=== PATIENT | male | born 1960 | race Caucasian/White ===

== ENCOUNTER 2016-08-06 14:46 | Inpatient (IN) | payer OTHER ==
[2016-08-06] MEDS ORDERED: ASPIRIN 81 MG CHEW PO STA (15:16)
[2016-08-06] MEDS ORDERED: IPRATROPIUM-ALBUTEROL 3 ML NEB INHALATION STA (15:16)
[2016-08-06] MEDS ORDERED: NITROGLYCERIN OINT 1 INCH/GM PACKET TOPICAL STA (15:16)
--- NOTE | 2016-08-06 15:19 | ED ---
General Adult HPI - General Chief complaint: Chest Pain Stated complaint: MARYA Heart Hx Time Seen by Provider: 08/06/16 14:59 Source: patient, RN notes reviewed Mode of arrival: wheelchair Limitations: no limitations - History of Present Illness Initial comments: Patient is a pleasant 55-year-old male presenting to the emergency Department with complaints of difficulty in breathing. Symptoms have been present for the past few days. Patient has cough with occasional yellow sputum. Patient has been using nebulizers without much improvement. Patient has been expressing chest discomfort frequently over the past few months. Patient has seen his doctor for this. Patient was once in the emergency department and advised to stay for stress test however he did not want to do this at that time. No chest discomfort at this time. Discomfort is exertional. Patient feels his dyspnea and chest discomfort are not necessarily related. Leg pain or leg swelling. Patient has been going through quite a bit of nitroglycerin recently. - Related Data Home Medications Medication Instructions Recorded Confirmed Clopidogrel [Plavix] 75 mg PO DAILY 08/09/15 08/06/16 Albuterol Sulfate [Proventil Hfa] 1 - 2 puff INHALATION RT-Q6H PRN 08/06/1610/18 Atorvastatin [Lipitor] 40 mg PO DAILY 08/06/16 08/06/16 Budesonide/Formoterol Fumarate 2 puff INHALATION RT-BID 08/06/16 08/06/16 [Symbicort 160-4.5 Mcg Inhaler] Lisinopril [Prinivil] 5 mg PO DAILY 08/06/16 08/06/16 Metoprolol Tartrate [Lopressor] 25 mg PO DAILY 08/06/16 08/06/16 Spironolactone [Aldactone] 25 mg PO DAILY 08/06/16 08/06/16 Allergies Allergy/AdvReac Type Severity Reaction Status Date / Time No Known Allergies Allergy Verified 08/06/16 15:16 Review of Systems ROS Statement: Those systems with pertinent positive or pertinent negative responses have been documented in the HPI. ROS Other: All systems not noted in ROS Statement are negative. Constitutional: Denies: fever, chills Eyes: Denies: eye pain ENT: Denies: ear pain Respiratory: Reports: cough, dyspnea Cardiovascular: Reports: chest pain Endocrine: Reports: fatigue Gastrointestinal: Denies: abdominal pain Genitourinary: Denies: dysuria Musculoskeletal: Denies: back pain Skin: Denies: rash Neurological: Denies: weakness Past Medical History Past Medical History: Coronary Artery Disease (CAD), COPD, Hyperlipidemia, Hypertension, Myocardial Infarction ([place]) History of Any Multi-Drug Resistant Organisms: MRSA Date of last positivie culture/infection: 2006 MDRO Source:: LEG Past Surgical History: Heart Catheterization With Stent Past Psychological History: No Psychological Hx Reported Smoking Status: Current every day smoker Past Alcohol Use History: None Reported Past Drug Use History: None Reported General Exam Limitations: no limitations General appearance: alert, in no apparent distress Head exam: Present: atraumatic Eye exam: Present: normal appearance, PERRL ENT exam: Present: normal oropharynx Neck exam: Present: normal inspection Respiratory exam: Present: rhonchi Cardiovascular Exam: Present: regular rate, normal rhythm GI/Abdominal exam: Present: soft. Absent: tenderness Extremities exam: Present: normal inspection. Absent: pedal edema, calf tenderness Neurological exam: Present: alert Psychiatric exam: Present: normal affect, normal mood Skin exam: Absent: rash Course Vital Signs 08/06/16 08/06/16 08/06/16 14:49 15:30 15:35 Temperature 99.1 F Pulse Rate 54 L 88 83 Respiratory 20 18 Rate Blood Pressure 139/71 95/51 O2 Sat by Pulse 99 100 Oximetry 08/06/16 08/06/16 15:39 17:00 Temperature Pulse Rate 88 82 Respiratory 18 Rate Blood Pressure 109/51 O2 Sat by Pulse 98 Oximetry EKG Findings - EKG Comments: EKG Findings:: Normal sinus rhythm at 89. MD 152. QRS 116. QTC 410. QTc 498. Left axis. LVH with repolarization changes. Inferior Q waves. Lateral T wave inversion. Previous EKG dated 08/09/2015 reviewed. Medical Decision Making - Medical Decision Making Patient reevaluated and did improve with nebulizer. Case was discussed in detail with Dr. Marroquin, who will admit for Dr. Rai. Patient states he has been talking about having a stress test done with Dr. Rai. His doctor has been trying to talk him into it however he has not yet had it done. - Lab Data Result diagrams: 08/06/16 15:08 08/06/16 15:08 Lab Results 08/06/16 08/06/16 08/06/16 Range/Units 15:08 15:08 15:08 WBC 8.7 (3.8-10.6) k/uL RBC 4.96 (4.30-5.90) m/uL Hgb 15.4 (13.0-17.5) gm/dL Hct 47.3 (39.0-53.0) % MCV 95.5 (80.0-100.0) fL MCH 31.1 (25.0-35.0) pg MCHC 32.6 (31.0-37.0) g/dL RDW 13.4 (11.5-15.5) % Plt Count 300 (150-450) k/uL Neutrophils % 72 % Lymphocytes % 18 % Monocytes % 6 % Eosinophils % 2 % Basophils % 1 % Neutrophils # 6.2 (1.3-7.7) k/uL Lymphocytes # 1.6 (1.0-4.8) k/uL Monocytes # 0.5 (0-1.0) k/uL Eosinophils # 0.2 (0-0.7) k/uL Basophils # 0.1 (0-0.2) k/uL PT (9.0-12.0) sec INR (<1.1) APTT (22.0-30.0) sec D-Dimer (<0.60) mg/L FEU Sodium 140 (137-145) mmol/L Potassium 4.4 (3.5-5.1) mmol/L Chloride 103 (98-107) mmol/L Carbon Dioxide 25 (22-30) mmol/L Anion Gap 12 mmol/L BUN 24 H (9-20) mg/dL Creatinine 0.83 (0.66-1.25) mg/dL Est GFR (MDRD) Af Amer >60 (>60 ml/min/1.73 sqM) Est GFR (MDRD) Non-Af >60 (>60 ml/min/1.73 sqM) Glucose 164 H (74-99) mg/dL Calcium 9.6 (8.4-10.2) mg/dL Magnesium 1.8 (1.6-2.3) mg/dL Total Bilirubin 0.6 (0.2-1.3) mg/dL AST 22 (17-59) U/L ALT 19 L (21-72) U/L Alkaline Phosphatase 81 (38-126) U/L Total Creatine Kinase 149 (55-170) U/L CK-MB (CK-2) 1.6 (0.0-2.4) ng/mL CK-MB (CK-2) Rel Index 1.1 Troponin I 0.028 (0.000-0.034) ng/mL NT-Pro-B Natriuret Pep pg/mL Total Protein 7.4 (6.3-8.2) g/dL Albumin 4.3 (3.5-5.0) g/dL Lipase 41 (23-300) U/L Influenza Type A RNA (Not Detectd) Influenza Type B (PCR) (Not Detectd) 08/06/16 08/06/16 08/06/16 Range/Units 15:08 15:08 15:08 WBC (3.8-10.6) k/uL RBC (4.30-5.90) m/uL Hgb (13.0-17.5) gm/dL Hct (39.0-53.0) % MCV (80.0-100.0) fL MCH (25.0-35.0) pg MCHC (31.0-37.0) g/dL RDW (11.5-15.5) % Plt Count (150-450) k/uL Neutrophils % % Lymphocytes % % Monocytes % % Eosinophils % % Basophils % % Neutrophils # (1.3-7.7) k/uL Lymphocytes # (1.0-4.8) k/uL Monocytes # (0-1.0) k/uL Eosinophils # (0-0.7) k/uL Basophils # (0-0.2) k/uL PT 11.2 (9.0-12.0) sec INR 1.1 (<1.1) APTT 23.8 (22.0-30.0) sec D-Dimer 1.14 H (<0.60) mg/L FEU Sodium (137-145) mmol/L Potassium (3.5-5.1) mmol/L Chloride (98-107) mmol/L Carbon Dioxide (22-30) mmol/L Anion Gap mmol/L BUN (9-20) mg/dL Creatinine (0.66-1.25) mg/dL Est GFR (MDRD) Af Amer (>60 ml/min/1.73 sqM) Est GFR (MDRD) Non-Af (>60 ml/min/1.73 sqM) Glucose (74-99) mg/dL Calcium (8.4-10.2) mg/dL Magnesium (1.6-2.3) mg/dL Total Bilirubin (0.2-1.3) mg/dL AST (17-59) U/L ALT (21-72) U/L Alkaline Phosphatase (38-126) U/L Total Creatine Kinase (55-170) U/L CK-MB (CK-2) (0.0-2.4) ng/mL CK-MB (CK-2) Rel Index Troponin I (0.000-0.034) ng/mL NT-Pro-B Natriuret Pep 1470 pg/mL Total Protein (6.3-8.2) g/dL Albumin (3.5-5.0) g/dL Lipase (23-300) U/L Influenza Type A RNA (Not Detectd) Influenza Type B (PCR) (Not Detectd) 08/06/16 Range/Units 15:22 WBC (3.8-10.6) k/uL RBC (4.30-5.90) m/uL Hgb (13.0-17.5) gm/dL Hct (39.0-53.0) % MCV (80.0-100.0) fL MCH (25.0-35.0) pg MCHC (31.0-37.0) g/dL RDW (11.5-15.5) % Plt Count (150-450) k/uL Neutrophils % % Lymphocytes % % Monocytes % % Eosinophils % % Basophils % % Neutrophils # (1.3-7.7) k/uL Lymphocytes # (1.0-4.8) k/uL Monocytes # (0-1.0) k/uL Eosinophils # (0-0.7) k/uL Basophils # (0-0.2) k/uL PT (9.0-12.0) sec INR (<1.1) APTT (22.0-30.0) sec D-Dimer (<0.60) mg/L FEU Sodium (137-145) mmol/L Potassium (3.5-5.1) mmol/L Chloride (98-107) mmol/L Carbon Dioxide (22-30) mmol/L Anion Gap mmol/L BUN (9-20) mg/dL Creatinine (0.66-1.25) mg/dL Est GFR (MDRD) Af Amer (>60 ml/min/1.73 sqM) Est GFR (MDRD) Non-Af (>60 ml/min/1.73 sqM) Glucose (74-99) mg/dL Calcium (8.4-10.2) mg/dL Magnesium (1.6-2.3) mg/dL Total Bilirubin (0.2-1.3) mg/dL AST (17-59) U/L ALT (21-72) U/L Alkaline Phosphatase (38-126) U/L Total Creatine Kinase (55-170) U/L CK-MB (CK-2) (0.0-2.4) ng/mL CK-MB (CK-2) Rel Index Troponin I (0.000-0.034) ng/mL NT-Pro-B Natriuret Pep pg/mL Total Protein (6.3-8.2) g/dL Albumin (3.5-5.0) g/dL Lipase (23-300) U/L Influenza Type A RNA Not Detected (Not Detectd) Influenza Type B (PCR) Not Detected (Not Detectd) - Radiology Data Radiology results: report reviewed (Computed tomography scan of the chest shows no pulmonary embolism. Emphysema. Cardiac megaly.), image reviewed (Chest x- ray shows no acute process) Disposition Clinical Impression: Unstable angina pectoris, COPD (chronic obstructive pulmonary disease) Disposition: ADMITTED IP TO THIS [facility] Decision Time: 17:46
[2016-08-06 15:20] LABS: Basophils # (A) 0.1 k/uL (0-0.2); Basophils % (A) 1 %; CH 31.9; CHCM 33.6; Eosinophils # (A) 0.2 k/uL (0-0.7); Eosinophils % (A) 2 %; HCT 47.3 % (39.0-53.0); HDW 2.29; HGB 15.4 gm/dL (13.0-17.5); Luc # (Auto) 0.13; Luc % (Auto) 2; Lymphocytes # (A) 1.6 k/uL (1.0-4.8); Lymphocytes % (A) 18 %; MCH 31.1 pg (25.0-35.0); MCHC 32.6 g/dL (31.0-37.0); MCV 95.5 fL (80.0-100.0); Mean Platelet Volume 7.4; Monocytes # (A) 0.5 k/uL (0-1.0); Monocytes % (A) 6 %; Neutrophils # (A) 6.2 k/uL (1.3-7.7); Neutrophils % (A) 72 %; RBC 4.96 m/uL (4.30-5.90); RDW 13.4 % (11.5-15.5); WBC 8.7 k/uL (3.8-10.6); WBC (Perox) 8.64
[2016-08-06 15:28] LABS: INR 1.1 (<1.1); Partial Thromboplastin Time 23.8 sec (22.0-30.0); Prothrombin Time 11.2 sec (9.0-12.0)
[2016-08-06 15:30] LABS: ALT 19 U/L (21-72); AST 22 U/L (17-59); Alkaline Phosphatase 81 U/L (38-126); Anion Gap 12 mmol/L; Blood Urea Nitrogen 24 mg/dL (9-20); Calcium 9.6 mg/dL (8.4-10.2); Carbon Dioxide 25 mmol/L (22-30); Chloride 103 mmol/L (98-107); Glucose 164 mg/dL (74-99); Magnesium 1.8 mg/dL (1.6-2.3); Non-African American GFR(MDRD) >60 (>60 ml/min/1.73 sqM); Potassium 4.4 mmol/L (3.5-5.1); Sodium 140 mmol/L (137-145); Total Bilirubin 0.6 mg/dL (0.2-1.3); Total Protein 7.4 g/dL (6.3-8.2)
--- NOTE | 2016-08-06 15:51 | XR ---
EXAMINATION TYPE: XR chest 2V DATE OF EXAM: 08/06/2016 3:20 PM HISTORY: Chest Pain. REFERENCE: Previous study dated 08/09/2015. FINDINGS: There is chronic appearing elevation of the right hemidiaphragm. Heart size is upper limits of normal. There are senescent changes throughout the chest. I do not see evidence of pneumonia or edema. IMPRESSION: NO ACUTE INTRATHORACIC ABNORMALITY.
[2016-08-06 15:56] LABS: Creatine Kinase MB 1.6 ng/mL (0.0-2.4); Troponin I 0.028 ng/mL (0.000-0.034)
[2016-08-06] MEDS ORDERED: RX INFO: IV CONTRAST WAS GIVEN 1 EACH MISC MISCELLANE PRN (16:00)
--- NOTE | 2016-08-06 16:51 | CT ---
EXAMINATION TYPE: CT angio chest DATE OF EXAM: 08/06/2016 4:39 PM COMPARISON: NONE HISTORY: Mid chest pain today. CT DLP: 376.20 mGycm Automated exposure control for dose reduction was used. CONTRAST: CTA scan of the thorax is performed with IV Contrast, patient injected with 74 mL of Omnipaque 350, p ulmonary embolism protocol. . FINDINGS: There is bullous change as well as other emphysematous findings throughout the lungs bilate rally, worse on the right than the left. There is some dependent atelectasis at the lung bases. No de finite parenchymal nodule is seen. There is no significant axillary or mediastinal adenopathy. There is a 2 cm lymph node in the right h ilum. Heart size is upper limits of normal. There is no pleural or pericardial fluid. There is no evidence of pulmonary embolus. The aorta is normal in caliber without evidence of dissection. There is a small hiatal hernia present. Visualized portions of the upper abdomen are otherwise unrema rkable. No osseous lesion is seen. IMPRESSION: 1. This examination is negative for pulmonary embolus. 2. Moderately severe changes of emphysema with bullous change bilaterally. 3. Underlying cardiomegaly. 4. Small hiatal hernia.
[2016-08-06] MEDS ORDERED: HEPARIN SODIUM,PORCINE 5,000 UNIT/ML 1 ML VIAL IV ONE (17:47)
[2016-08-06] MEDS ORDERED: IPRATROPIUM-ALBUTEROL 3 ML NEB INHALATION PRN (17:47)
[2016-08-06] MEDS: HEPARIN SODIUM,PORCINE/D5W PMX 25,000 UNIT in DEXTROSE/WATER 1 500ML.BAG IV SCH (18:06)
--- NOTE | 2016-08-06 19:19 | HP ---
DATE OF ADMISSION: He is a 55-year-old male who presented to the ED at [facility] with chest pain. This has been associated with cough, shortness of breath and wheezing and some yellowish phlegm. He was unable to lay flat in his chair because of the phlegm he was bringing up which was yellowish in color. He had no fever or chills. He has a known history of coronary artery disease and went through several bottles of nitroglycerin sublingual. He also had been started on Symbicort recently and had been taking at least 4 puffs of Symbicort at a time. He previously had been on albuterol HFA. Past medical history is positive for asthma as a child and subsequently as an adult as well, I believe though he was not discretely treated up until about 3 years ago, history of coronary artery disease, history possibly of COPD, history of cardiac cath with stent placement x2. Last stent was about 3 years ago, history of MRSA in the past with a leg infection in 2006. Family history is positive for possibly asthma in his father. 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 He smokes about a pack of cigarettes per day. He does not drink alcohol excessively or abused any other drugs. His medications prior to admission were: 1. Metoprolol. 2. Lisinopril. 3. Symbicort. 4. Lipitor. 5. Proventil HFA. 6. Aldactone. 7. Plavix. 8. Sublingual nitroglycerin. On physical examination, his blood pressure is 105/65, respiratory rate of 18, pulse rate 82, temperature 97.9, O2 sat on 2 liters by nasal cannula is 95%. HEENT: Pupils are equal. Chest reveals decreased breath sounds, prolonged expiration with expiratory wheeze on forced expiration. Cardiovascular system reveals an S1, S2. No S3, no S4. Short systolic murmur is heard. Abdomen is soft. There is no pedal edema. CTA of the chest showed that it is negative for PE. There are moderately severe changes of bullous emphysema with cardiomegaly and a hiatal hernia. EKG shows LVH with QRS widening, possible inferior infarct. IMPRESSION: 1. Chest pain possibly secondary to coronary artery disease for which the patient has been started on heparin. Will continue on beta taylor and will be seen by Cardiology. 2. Chest pain may in fact be due to asthma, chronic obstructive pulmonary disease overlap syndrome with acute exacerbation. 3. Obesity. At this point in time from a medical standpoint, rule in or rule him out for IA based on serial CPKs and EKGs. Have him seen by Cardiology. Start him on IV and aerosolized steroids. Continue bronchodilators. Add montelukast to his regimen. Keep him on GI prophylaxis. He was counseled regarding his condition and this approach and has a fair understanding of this approach.
[2016-08-06] MEDS: BUDESONIDE 0.5 MG/2 ML NEBU INHALATION SCH (19:45)
[2016-08-06] MEDS: IPRATROPIUM-ALBUTEROL 3 ML NEB INHALATION SCH (19:45)
[2016-08-06] MEDS: NITROGLYCERIN OINT 1 INCH/GM PACKET TOPICAL SCH (21:23)
[2016-08-06] MEDS: MONTELUKAST 10 MG TAB PO SCH (21:40)
[2016-08-06] MEDS: methylPREDNISolone SOD SUCCI 125 MG/2 ML VIAL IV SCH (21:40)
[2016-08-06 22:05] LABS: Creatine Kinase MB 1.2 ng/mL (0.0-2.4)
[2016-08-06 22:23] LABS: Troponin I 0.048 ng/mL (0.000-0.034)
[2016-08-07] MEDS: methylPREDNISolone SOD SUCCI 125 MG/2 ML VIAL IV SCH ×5 (00:30→23:34)
[2016-08-07 03:45] LABS: Mean Platelet Volume 7.2
[2016-08-07 03:54] LABS: Cholesterol 218 mg/dL (<200); HDL Cholesterol 62 mg/dL (40-60); Triglycerides 57 mg/dL (<150)
[2016-08-07] MEDS: HEPARIN SODIUM,PORCINE 5,000 UNIT/ML 1 ML VIAL IV PRN ×2 (04:02→11:44)
[2016-08-07 04:16] LABS: Creatine Kinase MB 1.2 ng/mL (0.0-2.4); Troponin I 0.022 ng/mL (0.000-0.034)
[2016-08-07] MEDS: NITROGLYCERIN OINT 1 INCH/GM PACKET TOPICAL SCH ×4 (06:16→17:32)
[2016-08-07] MEDS: BUDESONIDE 0.5 MG/2 ML NEBU INHALATION SCH (07:05)
[2016-08-07] MEDS: IPRATROPIUM-ALBUTEROL 3 ML NEB INHALATION SCH ×4 (07:05→20:07)
--- NOTE | 2016-08-07 07:40 | P.PN ---
Subjective 55-year-old being seen on rounds this morning. Patient states he's still short of breath audibly wheezing and coughing up yellowish secretions. Additionally patient states "having chronic carpal tunnel pain bilateral hands and lower back normally take oxycodone been without it for the last several weeks" patient states he does have a pain contract with Dr. Bradshaw". Additionally patient states he's coughing is causing chest tightness and pressure. Patient does have a history of coronary artery disease he states he had stents placed several years ago but has not followed up with cardiology. Patient isn't every day smoker smokes a pack a day has done so for greater than 20 years. Objective - Vital Signs Vital signs: Vital Signs Temp 97.9 F 08/07/16 07:13 Pulse 88 08/07/16 07:26 Resp 16 08/07/16 07:13 BP 120/89 08/07/16 07:13 Pulse Ox 93 L 08/07/16 07:13 Intake & Output 08/06/16 08/07/16 08/07/16 18:59 06:59 18:59 Intake Total 199.8 Balance 199.8 Weight 88.451 kg Intake: Intake, IV Titration 199.8 Amount Heparin Sodium,Porcine/ 199.8 D5w Pmx 25,000 unit In Dextrose/Water 1 500ml. bag @ 11.3 UNITS/KG/HR 19 .98 mls/hr IV .Q24H [facility] Rx#:[id number] Other: # Voids 1 1 - Exam GENERAL APPEARANCE: 55-year-old male patient is alert, oriented, in no acute distress. Requesting something for pain states has chronic pain due to carpal tunnel bilateral hands and lower back VITAL SIGNS: Reviewed HEENT: Head is normocephalic and atraumatic. Pupils are equal and reactive. The nares are patent. Oropharynx is clear without lesions. NECK: Supple without lymphadenopathy. Traches midline. HEART: S1, S2. Regular rate and rhythm. Reports chest tightness no murmur noted LUNGS: Coarse rhonchi throughout with audible wheezing bilateral frequent harsh nonproductive cough ABDOMEN: Soft, nontender, nondistended with good bowel sounds. No peritoneal signs. No palpable organomegaly or masses. EXTREMITIES: Normal skin color and turgor. No cyanosis, rash, ulceration, clubbing or edema. Radial pedal pulses are 2/4 bilaterally. NEUROLOGICAL: No focal deficits. Strength and sensation are grossly intact. - Labs CBC & Chem 7: 08/07/16 03:05 08/06/16 15:08 Labs: Abnormal Lab Results - Last 24 Hours (Table) 08/06/16 08/07/16 Range/Units 20:59 03:05 Troponin I 0.048 H* (0.000-0.034) ng/mL Cholesterol 218 H (<200) mg/dL LDL Cholesterol, Calc 145 H (0-99) mg/dL HDL Cholesterol 62 H (40-60) mg/dL Assessment and Plan Plan: Impression Present on admission shortness of breath suspect due to an acute exacerbation of COPD Current every day smoker 1 pack a day greater than a 20 year history Chronic pain with narcotic dependency History of asthma Mildly elevated troponins present on admission History of coronary artery disease with prior coronary stenting 3 years ago CAT scan of the chest no evidence of pulmonary emboli positive for bullous emphysema Plan Resume home meds as appropriate Respiratory treatments as ordered Await cardiology input Keep nothing by mouth until seen by cardiology DVT and GI prophylaxis Continue with the Singulair as ordered Pain control contact pain management Further recommendations pending The above dictated assessment and findings were discussed with dr terry Zaldivar and the plan of care have been dictated as directed. Maribel Gooden nurse practitioner acting as a scribe for dr stewart
[2016-08-07] MEDS ORDERED: ATORVASTATIN 40 MG TAB PO SCH (09:00)
--- NOTE | 2016-08-07 09:15 | P.CON ---
Consult Note - . Consult date: 08/07/16 Assessment/Plan:: Patient seen and examined, previous notes reviewed along with past medical, surgical, social, family histories and allergies. Mr. Goodman is a 55-year-old male with a long history of back pain and bilateral carpal tunnel syndrome who has been following with Dr. Bradshaw for medical management of his pain. He regularly gets oxycodone 15 mg po q6h (#120 per month) but ran out of his medication recently because there was a problem with his urine drug screen and Dr. Bradshaw would not prescribe him further medications and he did experience some opioid withdrawal symptoms. He believes that he was discharged from Dr. Bradshaw's clinic in error as the positive that came up in his urine drug screen can be explained by the other medications that he takes. He is happy with the care that Dr. Bradshaw has given him up until recently and does not wish to have another pain physician. The patient has been on a stable and fairly safe dose of oxycodone that can be continued in the hospital and prescribed by any primary care physician or hospitalist. At this point, it would be inappropriate for another pain physician to write him any prescriptions for opioid medications, as this will inevitably cloud the picture on his MAPS when he returns to see Dr. Bradshaw and he may be accused of seeking multiple pain providers when he is in fact not doing so. My recommendation is that our hospitalist service give the patient 1-2 weeks' worth of his medication upon discharge so he can return to see Dr. Bradshaw and have a further discussion regarding his opioid medications with that physician. I did educate the patient regarding his drug screen results and informed him that, if he needed further care, he can ask his primary care physician to refer him to our pain clinic on an outpatient basis. I discussed this case with the chief of the anesthesiology service, Dr. Irving Kohler. Please call back with any further questions.
[2016-08-07 09:30] LABS: Mis test requested (Blood) PTT
[2016-08-07 09:31] LABS: Mis test result (Blood) 43.3
--- NOTE | 2016-08-07 10:39 | P.CONS ---
History of Present Illness - Chief Complaint Hand and back pain - History of Present Illness I See patient for inpatient physical medicine consultation with regard to chronic pain management. He is apparently known to me from outpatient management for hand and back pain related to carpal tunnel syndrome and degenerative disc disease, respectively. Previously been on a regimen of oxycodone 15 mg 4 times a day, per patient. Recent you DT apparently demonstrated amphetamine in system and patient did not explain his. He apparently has discussed case with his pharmacist Shayla medication management amphetamine. Patient is advised to have printout from pharmacist with offending medication highlighted and brought to my office. Note chest x-ray negative. Chest CTA negative. Review of Systems Review of systems: ENT: Denies sneezes or discharge. Eyes: Denies discharge or photophobia. Cardiac: Complaints of chest pain. Pulmonary: Denies cough or shortness of breath. Gastrointestinal: Denies nausea, emesis, constipation, diarrhea. Genitourinary: Denies discharge or frequency. Musculoskeletal: Complaints of hands and back pain. Neurologic: Denies motor or sensory change. Endocrine: Denies shakes or sweats. Oncology: Denies cancers. Dermatologic: Denies rash, itching, pruritus. ALLERGY/immunology: Denies sneezes, rashes. Past Medical History Past Medical History: Coronary Artery Disease (CAD), COPD, Hyperlipidemia, Hypertension, Myocardial Infarction ([place]) Last Myocardial Infarction Date:: 2012 History of Any Multi-Drug Resistant Organisms: MRSA Year Discovered:: 2006 MDRO Source:: LEG Past Surgical History: Heart Catheterization With Stent Past Anesthesia/Blood Transfusion Reactions: No Reported Reaction Date of Last Stent Placement:: 2012 Past Psychological History: No Psychological Hx Reported Smoking Status: Current every day smoker Past Alcohol Use History: None Reported Past Drug Use History: None Reported Medications and Allergies Home Medications Medication Instructions Recorded Confirmed Type Clopidogrel [Plavix] 75 mg PO DAILY 08/09/15 08/06/16 History Albuterol Sulfate [Proventil Hfa] 1 - 2 puff INHALATION RT-Q6H PRN 08/06/1610/18 History Atorvastatin [Lipitor] 40 mg PO DAILY 08/06/16 08/06/16 History Budesonide/Formoterol Fumarate 2 puff INHALATION RT-BID 08/06/16 08/06/16 History [Symbicort 160-4.5 Mcg Inhaler] Lisinopril [Prinivil] 5 mg PO DAILY 08/06/16 08/06/16 History Metoprolol Tartrate [Lopressor] 25 mg PO DAILY 08/06/16 08/06/16 History Spironolactone [Aldactone] 25 mg PO DAILY 08/06/16 08/06/16 History oxyCODONE HCL [oxyCODONE HCL] 15 mg PO Q4H 08/07/16 08/07/16 History Allergies Allergy/AdvReac Type Severity Reaction Status Date / Time No Known Allergies Allergy Verified 08/06/16 15:16 Physical Exam Vitals: Vital Signs Temp Pulse Pulse Resp BP BP Pulse Ox 08/07/16 08:00 83 16 08/07/16 07:26 88 08/07/16 07:13 97.9 F 83 16 120/89 93 L 08/07/16 07:05 90 94 L 08/07/16 04:00 98.5 F 73 16 106/56 92 L 08/07/16 00:00 16 08/06/16 23:40 97.9 F 85 16 102/57 92 L 08/06/16 20:00 8 L 16 08/06/16 19:58 79 08/06/16 19:48 98.0 F 81 16 128/65 93 L 08/06/16 19:45 78 08/06/16 18:09 97.9 F 82 18 105/65 95 Intake and Output 08/06/16 08/07/16 08/07/16 22:59 06:59 14:59 Intake Total 199.8 Balance 199.8 Intake: Intake, IV Titration 199.8 Amount Heparin Sodium,Porcine/ 199.8 D5w Pmx 25,000 unit In Dextrose/Water 1 500ml. bag @ 11.3 UNITS/KG/HR 19 .98 mls/hr IV .Q24H [facility] Rx#:[id number] Other: Voiding Method Toilet # Voids 1 1 Weight 88.451 kg Skin: Good color, texture, turgor. General: Medium build and comfortable appearance. Head: Normocephalic, atraumatic. Eyes: Symmetric. Pupils equal round. Ears: Symmetric. Hearing within normal limits. Mouth: Clear. Neck: Supple. Carotid without bruit. Cardiac: Regular rate and rhythm. Lungs: Clear anteriorly and posteriorly. Abdomen: Soft active nontender. Extremities: Normal tone. Neurological: Mental status: Alert, cooperative, pleasant. Cranial nerves: Symmetric facial tone and trapezius. Motor: Normal strength and isolation all 4 limbs. Sensation: Intact throughout. DTRs: Symmetric and equal throughout. Mobility: Patient reports bathroom privileges in room and no difficulties with mobility. Results CBC & Chem 7: 08/07/16 03:05 08/06/16 15:08 Labs: Abnormal Lab Results - Last 24 Hours (Table) 08/06/16 08/07/16 Range/Units 20:59 03:05 Troponin I 0.048 H* (0.000-0.034) ng/mL Cholesterol 218 H (<200) mg/dL LDL Cholesterol, Calc 145 H (0-99) mg/dL HDL Cholesterol 62 H (40-60) mg/dL Chest x-ray: report reviewed (Chest x-ray negative.) CT scan - chest: report reviewed (CTA negative.) Assessment and Plan (1) Lumbar back pain Status: Acute Plan: Impression: 1. Low back pain, chronic. 2. Bilateral carpal tunnel some, per history. 3. Unstable angina with history of [place]. Comments and plan: At this time I prescribed oxycodone 15 mg 4 times a day. Patient is advised to straighten out pumps in office, must bring and pharmacist printout with circled or highlighted offending medication, in order to explain recent urine drug test result of a positive amphetamine. If he can do this, we' ll be happy to reassess him chronic pain management.
--- NOTE | 2016-08-07 11:07 | P.CRDCN ---
History of Present Illness Consult date: 08/07/16 Requesting physician: Arnoldo Rai Consult reason: chest pain Chief complaint: Chest pain History of present illness: This is a 55-year-old gentleman with known history of coronary artery disease, patient underwent angioplasty with stent placement of the right coronary artery and left circumflex artery in 2013, history of hypertension, hyperlipidemia, nicotine dependence, COPD. He's presented to the hospital on this occasion with symptoms of shortness of breath so stated cough of productive sputum, green in color. Patient states that he's been experiencing chest pressure and heaviness with associated exertional shortness of breath for the past few months, worsening recently. Patient has been taking several nitroglycerin a day, he states that they relief of symptoms but shortly thereafter symptoms return. This has been going on for a month or more. was treated with outpatient steroids and antibiotics for upper respiratory infection. Initial EKG on admission shows a normal sinus rhythm with nonspecific ST-T wave changes. Repeat EKG performed this morning shows normal sinus rhythm with lateral ST-T wave changes. Patient was also noted to have a run of nonsustained ventricular tachycardia on the monitor. Chest x-ray does not reveal any acute abnormality. CT of the chest negative for pulmonary embolism. Moderately severe changes of emphysema noted. Blood pressure on arrival 138/70 with a heart rate in the 50s to 60s. 99% on room air. Laboratory data reviewed, CBC normal, d-dimer 1.14. Potassium 4.4, BUN 24, creatinine 0.83. Troponins 0.028, 0.048, 0.022. Cholesterol 218, triglycerides 57, LDL 145, HDL 62. Influenza A and B-. Chordae to the patient , he has been taking Lopressor 25 mg daily, Prinivil 5 mg daily, Lipitor 40 mg daily, Aldactone 25 mg daily, Plavix 75 mg daily, and Symbicort inhaler at home. He does state he started taking an aspirin a day however this is not listed on his home medications. At the time of my examination this morning, he is currently chest pain free, continues to have cough. Past Medical History Past Medical History: Coronary Artery Disease (CAD), COPD, Hyperlipidemia, Hypertension, Myocardial Infarction ([place]) Last Myocardial Infarction Date:: 2012 History of Any Multi-Drug Resistant Organisms: MRSA Date of last positivie culture/infection: 2006 MDRO Source:: LEG Past Surgical History: Heart Catheterization With Stent Past Anesthesia/Blood Transfusion Reactions: No Reported Reaction Date of Last Stent Placement:: 2012 Past Psychological History: No Psychological Hx Reported Smoking Status: Current every day smoker Past Alcohol Use History: None Reported Past Drug Use History: None Reported Medications and Allergies Home Medications Medication Instructions Recorded Confirmed Type Clopidogrel [Plavix] 75 mg PO DAILY 08/09/15 08/06/16 History Albuterol Sulfate [Proventil Hfa] 1 - 2 puff INHALATION RT-Q6H PRN 08/06/1610/18 History Atorvastatin [Lipitor] 40 mg PO DAILY 08/06/16 08/06/16 History Budesonide/Formoterol Fumarate 2 puff INHALATION RT-BID 08/06/16 08/06/16 History [Symbicort 160-4.5 Mcg Inhaler] Lisinopril [Prinivil] 5 mg PO DAILY 08/06/16 08/06/16 History Metoprolol Tartrate [Lopressor] 25 mg PO DAILY 08/06/16 08/06/16 History Spironolactone [Aldactone] 25 mg PO DAILY 08/06/16 08/06/16 History oxyCODONE HCL [oxyCODONE HCL] 15 mg PO Q4H 08/07/16 08/07/16 History Allergies Allergy/AdvReac Type Severity Reaction Status Date / Time No Known Allergies Allergy Verified 08/06/16 15:16 Physical Exam Vitals: Vital Signs Temp Pulse Pulse Resp BP BP Pulse Ox 08/07/16 08:00 83 16 08/07/16 07:26 88 08/07/16 07:13 97.9 F 83 16 120/89 93 L 08/07/16 07:05 90 94 L 08/07/16 04:00 98.5 F 73 16 106/56 92 L 08/07/16 00:00 16 08/06/16 23:40 97.9 F 85 16 102/57 92 L 08/06/16 20:00 8 L 16 08/06/16 19:58 79 08/06/16 19:48 98.0 F 81 16 128/65 93 L 08/06/16 19:45 78 08/06/16 18:09 97.9 F 82 18 105/65 95 Intake and Output 08/06/16 08/07/16 08/07/16 22:59 06:59 14:59 Intake Total 199.8 Balance 199.8 Intake: Intake, IV Titration 199.8 Amount Heparin Sodium,Porcine/ 199.8 D5w Pmx 25,000 unit In Dextrose/Water 1 500ml. bag @ 11.3 UNITS/KG/HR 19 .98 mls/hr IV .Q24H JULIANE Rx#:[id number] Other: Voiding Method Toilet # Voids 1 1 2 Weight 88.451 kg PHYSICAL EXAMINATION: HEENT: Head is atraumatic, normocephalic. Pupils equal, round. Neck is supple. There is no elevated jugular venous pressure. HEART EXAMINATION: Heart S1 and S2 systolic murmur is heard. CHEST EXAMINATION: Lungs reveal scattered expiratory wheezes with decreased air exchange throughout. ABDOMEN: Soft, nontender. Bowel sounds are heard. No organomegaly noted. EXTREMITIES: 2+ peripheral pulses with no evidence of peripheral edema and no calf tenderness noted. NEUROLOGIC patient is awake, alert and oriented -3. . Results 08/07/16 03:05 08/06/16 15:08 Cardiac Enzymes 08/06/16 08/07/16 Range/Units 20:59 03:05 CK-MB (CK-2) 1.2 1.2 (0.0-2.4) ng/mL Troponin I 0.048 H* 0.022 (0.000-0.034) ng/mL Coagulation 08/06/16 08/07/16 Range/Units 23:54 06:57 APTT 28.6 (22.0-30.0) sec Lipids 08/07/16 Range/Units 03:05 Triglycerides 57 (<150) mg/dL Cholesterol 218 H (<200) mg/dL HDL Cholesterol 62 H (40-60) mg/dL CBC 08/07/16 Range/Units 03:05 Plt Count 290 (150-450) k/uL Current Medications Generic Name Dose Route Start Last Admin Trade Name Freq PRN Reason Stop Dose Admin Albuterol/Ipratropium 3 ml 08/06/16 20:00 08/07/16 07:05 Duoneb 0.5 Mg-3 Mg/3 Ml Soln INHALATION 3 ml RT-QID JULIANE Administration Albuterol/Ipratropium 3 ml 08/06/16 17:47 Duoneb 0.5 Mg-3 Mg/3 Ml Soln INHALATION RT-Q4H PRN Shortness Of Breath Or Wheezing Aspirin 325 mg 08/07/16 09:00 Aspirin PO DAILY [facility] Atorvastatin Calcium 40 mg 08/07/16 09:00 Lipitor PO DAILY [facility] Budesonide/Formoterol Fumarate 2 puff 08/07/16 08:00 Symbicort 160-4.5 Mcg Inhaler INHALATION RT-BID [facility] Clopidogrel Bisulfate 75 mg 08/07/16 09:00 Plavix PO DAILY [facility] Famotidine 20 mg 08/07/16 09:00 Pepcid PO BID [facility] Heparin Sodium (Porcine) 0 unit 08/06/16 17:47 08/07/16 04:02 Heparin IV 4,000 unit Q6HR PRN Administration Low PTT Protocol Heparin Sodium/Dextrose 25,000 500 mls @ 19.98 mls/hr 08/06/16 18:00 04:06 unit/ IV Solution IV 14.35 units/kg/hr .Q24H JULIANE 25.4 mls/hr Protocol Titration 11.3 UNITS/KG/HR Lisinopril 5 mg 08/07/16 09:00 Zestril PO DAILY [facility] Methylprednisolone Sodium Succinate 60 mg 08/06/16 18:45 08/07/16 06:17 Solu-Medrol IV 60 mg Q6HR [facility] Administration Metoprolol Tartrate 25 mg 08/07/16 09:00 Lopressor PO DAILY [facility] Miscellaneous Information 1 each 08/06/16 16:00 08/06/16 17:00 Rx Info: Iv Contrast Was Given MISCELLANE 08/08/16 16:00 1 each DAILY PRN Administration Per Protocol Montelukast Sodium 10 mg 08/06/16 21:00 08/06/16 21:40 Singulair PO 10 mg HS [facility] Administration Nitroglycerin 1 inch 08/06/16 18:00 08/07/16 06:16 Nitro-Bid Oint TOPICAL Not Given Q6HR [facility] Nitroglycerin 0.4 mg 08/06/16 17:47 Nitrostat SUBLINGUAL Q5M PRN Chest Pain Oxycodone HCl 15 mg 08/07/16 12:00 Oxyir PO Q6H [facility] Sodium Chloride 10 ml 08/06/16 21:00 08/07/16 04:44 Saline Flush IV Not Given BID [facility] Spironolactone 25 mg 08/07/16 09:00 Aldactone PO DAILY JUL[facility] Intake and Output 08/06/16 08/07/16 08/07/16 22:59 06:59 14:59 Intake Total 199.8 Balance 199.8 Intake: Intake, IV Titration 199.8 Amount Heparin Sodium,Porcine/ 199.8 D5w Pmx 25,000 unit In Dextrose/Water 1 500ml. bag @ 11.3 UNITS/KG/HR 19 .98 mls/hr IV .Q24H JULIANE Rx#:[id number] Other: Voiding Method Toilet # Voids 1 1 2 Weight 88.451 kg 08/07/16 03:05 EKG Interpretations (text) She'll EKG shows normal sinus rhythm with nonspecific ST-T wave changes, repeat EKG in the morning shows normal sinus rhythm with significant anterior lateral ST-T wave changes. Assessment and Plan Plan: Assessment and plan #1 symptoms of one to two-month duration of chest pressure and heaviness with associated exertional shortness of breath, abnormal troponins, EKG changes, suggestive of acute coronary syndrome. #2 symptoms of productive cough of green sputum, possible acute tracheobronchitis and exacerbation of COPD, low-grade temp 99.1. Currently on IV steroids. #3 known history of coronary artery disease with prior stenting of the circumflex and RCA in 2013. #4 nicotine dependence #5 hypertension #6 hyperlipidemia #7 COPD Plan We will obtain an echocardiogram with Doppler study. Continue aspirin, increase Lipitor to 80 mg daily, continue IV heparin. Continue lisinopril, metoprolol tartrate, and Aldactone. We will transfer the patient to the selective care unit. Check BNP level. Patient may need to undergo cardiac catheterization for more definitive diagnosis and further recommendations to follow. DNP note has been reviewed, I agree with a documented findings and plan of care. Patient was seen and examined.
[2016-08-07] MEDS: SYMBICORT 160-4.5 MCG INHALER INHALATION SCH ×2 (11:15→20:07)
[2016-08-07] MEDS: ASPIRIN 325 MG TAB PO SCH (11:41)
[2016-08-07] MEDS: FAMOTIDINE 20 MG TAB PO SCH ×2 (11:42→23:36)
[2016-08-07] MEDS: LISINOPRIL 5 MG TAB PO SCH (11:42)
[2016-08-07] MEDS: SPIRONOLACTONE 25 MG TAB PO SCH (11:42)
[2016-08-07] MEDS: METOPROLOL TARTRATE 25 MG TAB PO SCH (11:42)
[2016-08-07] MEDS: CLOPIDOGREL 75 MG TAB PO SCH (11:42)
[2016-08-07] MEDS ORDERED: ASPIRIN 325 MG TAB PO STA (12:47)
[2016-08-07] MEDS ORDERED: NITROGLYCERIN SL TABS 0.4 MG TAB SUBLINGUAL PRN (12:47)
[2016-08-07] MEDS ORDERED: SODIUM CHLORIDE 0.9% 1,000 ML in EMPTY BAG 1 BAG IV ONE (12:47)
[2016-08-07] MEDS ORDERED: ATORVASTATIN 80 MG TAB PO STA (12:47)
--- NOTE | 2016-08-07 18:02 | HP ---
DATE OF ADMISSION: 08/07/2016 CHIEF COMPLAINT: Chest pain. HISTORY OF PRESENT ILLNESS: This is another admission for this 55-year-old white male who has chronic angina pectoris. He was just in the office the other day. He is taking nitroglycerin 2 or 3 at a time 6 or 7 times a day. He noticed that he started to develop a cough with chest pain. He came to the emergency room. His cardiac enzymes were, apparently, somewhat elevated. REVIEW OF SYSTEMS: He has had no syncope, diaphoresis, palpitations, etc. Past medical history, family history, and personal and social histories are otherwise unremarkable and noncontributory. ALLERGIES: HE IS NOT ALLERGIC TO ANY MEDICATIONS. He takes: 1. Metoprolol 25 mg once a day. 2. Symbicort 160/4.5 two puffs twice a day. 3. Many Nitrostat per day. 4. Clopidogrel 75 per day. 5. Spironolactone 25 mg once a day. 6. Oxycodone 15 mg q.6 p.r.n. 7. Chantix 0.5 b.i.d. 8. Flonase once a day. 9. Lipitor 40 mg once a day. The remainder of his history is unremarkable except that he still smokes. PHYSICAL EXAMINATION: Blood pressure 144/86, pulse 83, respiratory rate 20. He is afebrile. In general he appeared to be in no acute distress. Skin color is normal. Skin is warm and dry. Lymph nodes are not enlarged. Head, ears, eyes, nose, mouth and throat were normal. Neck veins were not distended. Thyroid is not enlarged. Chest is clear. Breath sounds are diminished. Cardiac exam is normal sinus rhythm with no murmurs or extra sounds. Abdomen is soft, nontender without visceromegaly or masses. Extremities are normal. Neurologically he is intact. IMPRESSION: 1. Unstable angina pectoris. 2. Chronic obstructive pulmonary disease. PLAN: 1. Bed rest. 2. IV fluids. 3. Serial EKGs and enzymes. 4. Consult Cardiology.
--- NOTE | 2016-08-07 18:04 | PN ---
DATE OF SERVICE: 08/07/2016 CHIEF COMPLAINT: Coronary artery disease and unstable angina. HISTORY OF PRESENT ILLNESS: This gentleman is doing fairly well and he is still having some pain. He has been seen by Cardiology. PHYSICAL EXAMINATION: CHEST: Clear. CARDIAC: Normal. ABDOMEN: Soft, nontender. IMPRESSION: 1. Chest pain. 2. Probable unstable angina pectoris. 3. Coronary artery disease. 4. Chronic obstructive pulmonary disease. PLAN: Await recommendations from Cardiology.
[2016-08-07] MEDS: NITROGLYCERIN SL TABS 0.4 MG TAB SUBLINGUAL PRN (18:34)
[2016-08-07] MEDS: HEPARIN SODIUM,PORCINE/D5W PMX 25,000 UNIT in DEXTROSE/WATER 1 500ML.BAG IV SCH (18:56)
[2016-08-07 20:59] LABS: Glucose,Whole Blood 157 mg/dL (75-99)
[2016-08-07] MEDS: ALPRAZolam 0.5 MG TAB PO PRN (21:50)
[2016-08-07] MEDS: MONTELUKAST 10 MG TAB PO SCH (23:36)
[2016-08-08] MEDS: NITROGLYCERIN SL TABS 0.4 MG TAB SUBLINGUAL PRN (05:00)
[2016-08-08 05:45] LABS: Mean Platelet Volume 6.7
[2016-08-08 05:55] LABS: Glucose,Whole Blood 136 mg/dL (75-99)
[2016-08-08] MEDS: NITROGLYCERIN OINT 1 INCH/GM PACKET TOPICAL SCH ×4 (06:29→21:39)
[2016-08-08] MEDS: methylPREDNISolone SOD SUCCI 125 MG/2 ML VIAL IV SCH ×2 (06:30→11:52)
[2016-08-08] MEDS ORDERED: ATORVASTATIN 80 MG TAB PO ONE (07:00)
[2016-08-08] MEDS: IPRATROPIUM-ALBUTEROL 3 ML NEB INHALATION SCH ×4 (07:39→20:25)
[2016-08-08] MEDS: SYMBICORT 160-4.5 MCG INHALER INHALATION SCH (07:39)
[2016-08-08] MEDS: FAMOTIDINE 20 MG TAB PO SCH ×2 (08:32→21:39)
[2016-08-08] MEDS: CLOPIDOGREL 75 MG TAB PO SCH (08:32)
[2016-08-08] MEDS: ASPIRIN 325 MG TAB PO SCH (08:32)
[2016-08-08] MEDS: LISINOPRIL 5 MG TAB PO SCH (08:34)
[2016-08-08] MEDS: SPIRONOLACTONE 25 MG TAB PO SCH (08:34)
[2016-08-08] MEDS: METOPROLOL TARTRATE 25 MG TAB PO SCH ×2 (08:34→21:39)
--- NOTE | 2016-08-08 10:03 | ECHOF ---
Referral Reason:ua MEASUREMENTS -------- HEIGHT: 172.7 cm WEIGHT: 88.5 kg BP: 120/89 RVIDd: 3.7 cm (< 3.3) IVSd: 1.4 cm (0.6 - 1.1) LVIDd: 7.3 cm (3.9 - 5.3) LVPWd: 1.3 cm (0.6 - 1.1) IVSs: 2.2 cm LVIDs: 6.5 cm LVPWs: 1.7 cm LA Diam: 5.0 cm (2.7 - 3.8) LAESV Index (A-L): 38.35 ml/m Ao Diam: 3.4 cm (2.0 - 3.7) AV Cusp: 2.1 cm (1.5 - 2.6) LA Diam: 4.6 cm (2.7 - 3.8) MV EXCURSION: 22.993 mm (> 18.000) MV EF SLOPE: 92 mm/s (70 - 150) EPSS: 1.2 cm MV E Parth: 0.71 m/s MV DecT: 158 ms MV A Parth: 1.08 m/s MV E/A Ratio: 0.66 RAP: 15.00 mmHg RVSP: 48.48 mmHg FINDINGS -------- Sinus rhythm. This was a technically good study. There is moderate concentric left ventricular hypertrophy. Overall left ventricular systolic function is severely impaired with, an EF between 20 - 25 %. The right ventricle is mildly enlarged. LA is moderately dilated 34-39 ml/m2 The right atrium is normal in size. There is mild aortic valve sclerosis. The mitral valve leaflets are mildly thickened. Mild mitral annular calcification present. Mild mitral regurgitation is present. Mild tricuspid regurgitation present. There is mild to moderate pulmonary hypertension. The right ventricular systolic pressure, as measured by Doppler, is 48.48mmHg. The pulmonic valve was not well visualized. The aortic root, ascending aorta and aortic arch are normal. The inferior vena cava is dilated with poor inspiratory collapse which is consistent with estimated right atrial pressure of 15 mmHg. CONCLUSIONS -------- 1. Sinus rhythm. 2. Mild mitral annular calcification present. 3. Mild mitral regurgitation is present. 4. Mild tricuspid regurgitation present. 5. There is mild to moderate pulmonary hypertension. 6. The right ventricular systolic pressure, as measured by Doppler, is 48.48mmHg. 7. The pulmonic valve was not well visualized. 8. The aortic root, ascending aorta and aortic arch are normal. 9. The inferior vena cava is dilated with poor inspiratory collapse which is consistent with estimated right atrial pressure of 15 mmHg. 10. This was a technically good study. 11. There is moderate concentric left ventricular hypertrophy. 12. Overall left ventricular systolic function is severely impaired with, an EF between 20 - 25 %. 13. The right ventricle is mildly enlarged. 14. LA is moderately dilated 34-39 ml/m2 15. The right atrium is normal in size. 16. There is mild aortic valve sclerosis. 17. The mitral valve leaflets are mildly thickened. ENGRAVING PRESS OPERATOR: Deborah Neves RDCS
[2016-08-08 11:25] LABS: Glucose,Whole Blood 134 mg/dL (75-99)
[2016-08-08] MEDS ORDERED: SODIUM CHLORIDE 0.9% (PF) 10 ML VIAL ONE (12:23)
[2016-08-08] MEDS ORDERED: LIDOCAINE 2% INJ 20 MG/ML (20 ML MDV) ONE (12:23)
[2016-08-08] MEDS ORDERED: VERAPAMIL 2.5 MG/ML 2 ML AMP ONE (12:23)
[2016-08-08] MEDS ORDERED: fentaNYL (PF) 50 MCG/ML 2 ML AMP ONE (12:24)
[2016-08-08] MEDS ORDERED: diphenhydrAMINE 50 MG/ML 1 ML VIAL ONE (12:24)
[2016-08-08] MEDS ORDERED: HEPARIN SODIUM 1,000 UNIT/ML VIAL ONE (12:26)
[2016-08-08] MEDS ORDERED: MIDAZOLAM 2 MG/2 ML VIAL IVP ONE (12:37)
[2016-08-08] MEDS ORDERED: diphenhydrAMINE 50 MG/ML 1 ML VIAL IVP ONE (12:37)
[2016-08-08] MEDS ORDERED: VERAPAMIL SYRINGE (5 MG/10 ML) INTRAARTER ONE (12:39)
[2016-08-08] MEDS ORDERED: LIDOCAINE 2% INJ 20 MG/ML SQ ONE (12:43)
[2016-08-08] MEDS ORDERED: SODIUM CHLORIDE 0.9% 1,000 ML IV ONE (13:09)
[2016-08-08] MEDS ORDERED: IOHEXOL 350 MG/ML 100 ML BOTTLE INJ ONE (13:09)
[2016-08-08] MEDS ORDERED: SODIUM CHLORIDE 0.9% 1,000 ML IV SCH (13:30)
[2016-08-08] MEDS ORDERED: RX INFO: IV CONTRAST WAS GIVEN 1 EACH MISC MISCELLANE PRN (13:30)
[2016-08-08] MEDS ORDERED: HEPARIN SODIUM,PORCINE 5,000 UNIT/ML 1 ML VIAL IV PRN (13:33)
--- NOTE | 2016-08-08 14:10 | P.PN ---
Subjective Principal diagnosis: 55-year-old being seen this morning in rounds. Patient is scheduled for heart catheterization by cardiology service. Patient appears in no acute distress. Patient was seen by pain management yesterday for chronic pain. Has seen Dr. Bradshaw in the past. is aware the plan of care. Currently is appearing in no acute distress. Currently is denying chest pain or shortness of breath when questioning Objective - Vital Signs Vital signs: Vital Signs Temp 97.0 F L 08/08/16 12:00 Pulse 75 08/08/16 12:00 Resp 18 08/08/16 12:00 BP 107/60 08/08/16 12:00 Pulse Ox 95 08/08/16 12:00 Intake & Output 08/07/16 08/08/16 08/08/16 18:59 06:59 18:59 Intake Total 985.043 132.068 250 Balance 985.043 132.068 250 Weight 86.1 kg Intake: IV 250 Intake, IV Titration 105.043 132.068 Amount Heparin Sodium,Porcine/ 105.043 132.068 D5w Pmx 25,000 unit In Dextrose/Water 1 500ml. bag @ 11.3 UNITS/KG/HR 19 .98 mls/hr IV .Q24H JULIANE Rx#:[id number] Oral 880 0 Other: Voiding Method Toilet Toilet Toilet # Voids 1 2 - Exam Physical exam 55-year-old male sitting up in bed does not appear in any acute distress currently scheduled today for heart catheterization currently denying chest pain or shortness of breath Lungs a few prolonged expiratory wheezing otherwise clear no cough noted Heart S1-S2 audible regular Abdomen soft nontender no palpable organomegaly Extremities no edema noted - Labs CBC & Chem 7: 08/08/16 05:27 08/06/16 15:08 Labs: Abnormal Lab Results - Last 24 Hours (Table) 08/07/16 08/07/16 08/08/16 Range/Units 19:22 20:54 05:27 APTT 38.4 H 49.4 H (22.0-30.0) sec POC Glucose (mg/dL) 157 H (75-99) mg/dL 08/08/16 08/08/16 Range/Units 05:54 11:23 APTT (22.0-30.0) sec POC Glucose (mg/dL) 136 H 134 H (75-99) mg/dL Assessment and Plan Plan: Impression Present on admission shortness of breath suspect due to an acute exacerbation of COPD Current every day smoker 1 pack a day greater than a 20 year history Chronic lower back pain with bilateral carpal tunnel per history with narcotic dependency History of asthma Mildly elevated troponins present on admission suspect due to a non-ST elevated [place] History of coronary artery disease with prior coronary stenting 3 years ago CAT scan of the chest no evidence of pulmonary emboli positive for bullous emphysema This admission episode nonsustained V. tach asymptomatic Echocardiogram August 07 ventricular systolic function severely impaired with an EF between 20 and 25% with moderate pulmonary hypertension Chronic congestive heart failure systolic dysfunction EF 20-25% Plan Resume home meds as appropriate Respiratory treatments as ordered Scheduled today for heart catheterization Pain management's recommendations Dr. Bradshaw reviewed patient's drug screen as an outpatient needs to be addressed and highlighted the offending medication in order to explain the recent drug test results of a positive amphetamine if this can be accomplished Dr. Bradshaw will see the patient for chronic pain management in the outpatient setting DVT and GI prophylaxis Continue with the Singulair as ordered Further recommendations pending The above dictated assessment and findings were discussed with dr terry Zaldivar and the plan of care have been dictated as directed. Maribel Gooden nurse practitioner acting as a scribe for dr stewart
[2016-08-08] MEDS ORDERED: HYDROmorphone 1 MG/ML 1 ML SYRINGE IVP STA (14:12)
[2016-08-08 14:37] LABS: Basophils % (A) 0 %; CH 31.3; CHCM 32.7; Eosinophils % (A) 0 %; HCT 41.6 % (39.0-53.0); HDW 2.23; HGB 13.8 gm/dL (13.0-17.5); Luc # (Auto) 0.09; Luc % (Auto) 1; Lymphocytes % (A) 6 %; MCH 31.8 pg (25.0-35.0); MCHC 33.1 g/dL (31.0-37.0); MCV 96.2 fL (80.0-100.0); Mean Platelet Volume 7.4; Monocytes # (A) 0.5 k/uL (0-1.0); Monocytes % (A) 4 %; Neutrophils % (A) 90 %; RBC 4.33 m/uL (4.30-5.90); RDW 13.7 % (11.5-15.5); WBC 15.6 k/uL (3.8-10.6)
[2016-08-08 14:49] LABS: INR 1.1 (<1.1); Partial Thromboplastin Time 52.9 sec (22.0-30.0); Prothrombin Time 11.3 sec (9.0-12.0)
[2016-08-08] MEDS: ALPRAZolam 0.25 MG TAB PO PRN (15:44)
[2016-08-08] MEDS ORDERED: HEPARIN SODIUM,PORCINE/D5W PMX 25,000 UNIT in DEXTROSE/WATER 1 500ML.BAG IV SCH (15:45)
[2016-08-08] MEDS: methylPREDNISolone SOD SUCCI 40 MG/ML 1 ML VIAL IV SCH ×2 (15:46→23:06)
[2016-08-08] MEDS ORDERED: MD COMMUNICATION TO PHARMACY 1 EACH MISC PO ONE ×4 (16:25)
[2016-08-08 16:38] LABS: Glucose,Whole Blood 128 mg/dL (75-99)
--- NOTE | 2016-08-08 17:14 | P.GSCN ---
History of Present Illness Consult date: 08/08/16 Reason for Consult: Evaluation for coronary artery bypass grafting Requesting physician: Elsy Ch History of present illness: This is a 55 years old gentleman admitted through the emergency room for chest pain. Patient has prior RCA and circumflex stenting in [address] elevation myocardial infarction. He was lost to follow-up. He admits to been taken nitro several times a day and for several weeks now. He also has a history of childhood and a ball-tipped asthma and COPD and is complaining of also shortness of breath and some productive cough. Patient had mild troponin leak. He underwent a 2-D echo that showed severe left ventricle dysfunction. Cardiac catheterization today showed evidence of progression of disease in the right coronary artery and in the LAD system involving a large diagonal, patent circumflex stent. Patient is on chronic Plavix with last dose taken this a.m. CT of the chest performed to rule out pulmonary embolism shows an elevated right hemidiaphragm and advanced emphysematous bullous disease bilaterally. Patient was seen by Dr. Marroquin and is currently on IV steroids in addition to bronchodilators. Review of Systems - Constitutional Reports as per HPI Past Medical History Past Medical History: Coronary Artery Disease (CAD), COPD, Hyperlipidemia, Hypertension, Myocardial Infarction ([place]) Last Myocardial Infarction Date:: 2012 History of Any Multi-Drug Resistant Organisms: MRSA Year Discovered:: 2006 MDRO Source:: [facility] Past Surgical History: Heart Catheterization With Stent Past Anesthesia/Blood Transfusion Reactions: No Reported Reaction Date of Last Stent Placement:: 2012 Past Psychological History: No Psychological Hx Reported Smoking Status: Current every day smoker Past Alcohol Use History: None Reported Past Drug Use History: None Reported Medications and Allergies Home Medications Medication Instructions Recorded Confirmed Type Clopidogrel [Plavix] 75 mg PO DAILY 08/09/15 08/06/16 History Albuterol Sulfate [Proventil Hfa] 1 - 2 puff INHALATION RT-Q6H PRN 08/06/1610/18 History Atorvastatin [Lipitor] 40 mg PO DAILY 08/06/16 08/06/16 History Budesonide/Formoterol Fumarate 2 puff INHALATION RT-BID 08/06/16 08/06/16 History [Symbicort 160-4.5 Mcg Inhaler] Lisinopril [Prinivil] 5 mg PO DAILY 08/06/16 08/06/16 History Metoprolol Tartrate [Lopressor] 25 mg PO DAILY 08/06/16 08/06/16 History Spironolactone [Aldactone] 25 mg PO DAILY 08/06/16 08/06/16 History oxyCODONE HCL [oxyCODONE HCL] 15 mg PO Q4H 08/07/16 08/07/16 History Allergies Allergy/AdvReac Type Severity Reaction Status Date / Time No Known Allergies Allergy Verified 08/06/16 15:16 Surgical - Exam Vital Signs Temp Pulse Resp BP Pulse Ox 99.1 F 54 L 20 139/71 99 08/06/16 14:49 08/06/16 14:49 08/06/16 14:49 08/06/16 14:49 08/06/16 14:49 - General well developed, well nourished, no distress - ENT no hearing loss, no congestion - Neck no masses, trachea midline - Respiratory Occasional crackles bilaterally right: dullness - Cardiovascular Rhythm: regular Heart Sounds: normal: S1, S2 Abnormal Heart Sounds: systolic murmur - Abdomen Abdomen: soft, non tender, no guarding, no rigid, no rebound - Rectum Deferred - Neurologic no disoriented, no combative - Psychiatric oriented to time, oriented to person, oriented to place, speech is normal, memory intact Patient has a very positive left-sided modified Joe's test and an equivocal Joe's test on the right side No varicose veins. 2+ of dorsalis pedis bilaterally. Results - Labs 08/08/16 14:15 08/06/16 15:08 Abnormal Lab Results - Last 24 Hours (Table) 08/07/16 08/07/16 08/08/16 Range/Units 19:22 20:54 05:27 WBC (3.8-10.6) k/uL Neutrophils # (1.3-7.7) k/uL APTT 38.4 H 49.4 H (22.0-30.0) sec POC Glucose (mg/dL) 157 H (75-99) mg/dL 08/08/16 08/08/16 08/08/16 Range/Units 05:54 11:23 14:15 WBC 15.6 H (3.8-10.6) k/uL Neutrophils # 14.0 H (1.3-7.7) k/uL APTT (22.0-30.0) sec POC Glucose (mg/dL) 136 H 134 H (75-99) mg/dL 08/08/16 08/08/16 Range/Units 14:15 16:36 WBC (3.8-10.6) k/uL Neutrophils # (1.3-7.7) k/uL APTT 52.9 H (22.0-30.0) sec POC Glucose (mg/dL) 128 H (75-99) mg/dL - Imaging Chest x-ray: report reviewed (as noted above), image reviewed ( and a book and noted) CT scan - chest: report reviewed, image reviewed (Advanced emphysematous changes and elevated right hemidiaphragm. Some calcification involving the aortic valve. Ascending aorta is not calcified. Left ventricular thickness overall preserved) EKG: report reviewed, image reviewed Additional studies: Cardiac catheterization shows proximal significant stenosis of the right coronary artery with patent stents distally, patent stent in the circumflex artery, severe stenosis of the LAD and the very proximal takeoff of a large diagonal artery. 2-D echo shows a moderate concentric left ventricular hypertrophy with severe impairment of the systolic function estimated at 20-25%. There is moderate dilatation of the left atrium with mild mitral valve regurgitation reportedly. This mild to moderate pulmonary hypertension Assessment and Plan Plan: 55 years old gentleman with past medical history of hypertension prior coronary stenting with non-ST elevation myocardial infarction and severe left ventricular dysfunction. Patient also with bad emphysematous changes throughout on CT chest. He is on chronic Plavix. In view of his critical disease we will be proceeding with myocardial visualization as soon as cleared by pulmonary. We'll complete his preoperative testing in the interim. We will be following the patient closely with you. Thank you for the privilege of this consult.
--- NOTE | 2016-08-08 19:01 | US ---
EXAMINATION TYPE: US carotid duplex BILAT DATE OF EXAM: 08/08/2016 5:33 PM COMPARISON: NONE CLINICAL HISTORY: preop cabg. EXAM MEASUREMENTS: RIGHT: Peak Systolic Velocity (PSV) cm/sec ----- Right CCA: 95.1 ----- Right ICA: 80.1 ----- Right ECA: 149.6 ICA/CCA ratio: 0.8 RIGHT: End Diastole cm/sec ----- Right CCA: 18.1 ----- Right ICA: 29.6 ----- Right ECA: 19.5 LEFT: Peak Systolic Velocity (PSV) cm/sec ----- Left CCA: 117.6 ----- Left ICA: 90.0 ----- Left ECA: 192.6 ICA/CCA ratio: 0.8 LEFT: End Diastole cm/sec ----- Left CCA: 27.6 ----- Left ICA: 29.6 ----- Left ECA: 23.0 VERTEBRALS (direction of flow): Right Vertebral: Antegrade Left Vertebral: Antegrade TECHNOLOGIST IMPRESSION: No significant stenosis seen. Elevated bilateral ECA. Plaque seen in bilat eral bulbs. Thickened bilateral CCA wall. IMPRESSION: There is antegrade flow in the vertebral arteries. There is some elevated velocity in the external carotid arteries that suggests 50-70% stenosis. The i mages and measurements suggest 20-30% stenosis in both internal carotid arteries. Criteria for Assigning % of Stenosis / Diameter reduction (Estimation based on the indirect measurements of the internal carotid artery velocities (ICA PSV). 1. Normal (no stenosis)=ICA PSV < 125 cm/s: ratio < 2.0: ICA EDV<40 cm/s. 2. Less than 50% stenosis=ICA PSV < 125 cm/s: ratio < 2.0: ICA EDV<40 cm/s. 3. 50 to 69% stenosis=ICA PSV of 125 to 230 cm/s: ration 2.0 ? 4.0: ICA EDV 40-100 cm/s. 4. Greater than 70% stenosis to near occlusion= ICA PSV > 230 cm/s: ratio > 4.0: ICA EDV > 100 cm/s. 5. Near occlusion= ICA PSV velocities may be low or undetectable: variable ratio and ICA EDV. 6. Total occlusion=unable to detect flow.
[2016-08-08 19:06] LABS: Basophils % (A) 0 %; CH 31.1; CHCM 32.4; Eosinophils % (A) 0 %; HCT 42.8 % (39.0-53.0); HDW 2.19; HGB 13.6 gm/dL (13.0-17.5); Luc # (Auto) 0.06; Luc % (Auto) 0; Lymphocytes # (A) 0.7 k/uL (1.0-4.8); Lymphocytes % (A) 4 %; MCH 30.8 pg (25.0-35.0); MCHC 31.9 g/dL (31.0-37.0); MCV 96.5 fL (80.0-100.0); Mean Platelet Volume 6.8; Monocytes # (A) 0.6 k/uL (0-1.0); Monocytes % (A) 4 %; Neutrophils # (A) 13.9 k/uL (1.3-7.7); Neutrophils % (A) 91 %; RBC 4.43 m/uL (4.30-5.90); RDW 13.6 % (11.5-15.5); WBC 15.3 k/uL (3.8-10.6); WBC (Perox) 15.89
--- NOTE | 2016-08-08 19:28 | PN ---
CHIEF COMPLAINT: Chest pain and coronary artery disease. HISTORY OF PRESENT ILLNESS: This gentleman is going down today for a cardiac cath. Still having chest pain. Exam is deferred until after his catheterization. IMPRESSION: 1. Unstable angina pectoris. 2. Coronary artery disease. 3. Chronic obstructive pulmonary disease. PLAN: Await results of cardiac catheterization.
[2016-08-08 19:29] LABS: ALT 38 U/L (21-72); AST 21 U/L (17-59); Alkaline Phosphatase 67 U/L (38-126); Anion Gap 8 mmol/L; Blood Urea Nitrogen 29 mg/dL (9-20); Calcium 9.6 mg/dL (8.4-10.2); Carbon Dioxide 23 mmol/L (22-30); Chloride 106 mmol/L (98-107); Cholesterol 223 mg/dL (<200); Glucose 133 mg/dL (74-99); HDL Cholesterol 70 mg/dL (40-60); Magnesium 2.1 mg/dL (1.6-2.3); Non-African American GFR(MDRD) >60 (>60 ml/min/1.73 sqM); Potassium 4.8 mmol/L (3.5-5.1); Sodium 137 mmol/L (137-145); Total Bilirubin 0.4 mg/dL (0.2-1.3); Total Protein 6.9 g/dL (6.3-8.2); Triglycerides 161 mg/dL (<150)
[2016-08-08 20:04] LABS: INR 1.1 (<1.1); Partial Thromboplastin Time 21.4 sec (22.0-30.0); Prothrombin Time 10.7 sec (9.0-12.0)
[2016-08-08] MEDS: BUDESONIDE 0.5 MG/2 ML NEBU INHALATION SCH (20:25)
[2016-08-08 20:34] LABS: Hepatitis B Surface Ag Index 0.05
[2016-08-08 20:41] LABS: Hepatitis B Core IgM Index 0.02
[2016-08-08 20:48] LABS: Hepatitis C Virus IgG Ab Negative (Negative)
[2016-08-08 20:52] LABS: Glucose,Whole Blood 207 mg/dL (75-99)
[2016-08-08] MEDS: MONTELUKAST 10 MG TAB PO SCH (21:39)
[2016-08-08] MEDS: MUPIROCIN 2% OINT 22 GM TUBE NASAL SCH (21:40)
--- NOTE | 2016-08-08 21:42 | CONS ---
DATE OF CONSULTATION: Beto Goodman is a 55-year-old male who was admitted to the hospital with chest pain. He also had shortness of breath and had been bringing up yellowish phlegm. He was unable to lie flat in his bed. He subsequently was admitted for further evaluation. He had a borderline elevation in his troponin. Subsequently had a cardiac catheterization done, which showed evidence of progression of disease in the right coronary artery and in the LAD system reveals involving the large diagonal patent circumflex stent and consideration is being given for coronary artery bypass surgery. Patient today has less shortness of breath and on this day of admission is less wheezing. He is able to lie flat in bed at this time. Past medical history is positive for asthma, coronary artery disease, history of MRSA infection to the leg in 2006. FAMILY HISTORY: Positive for possibly asthma in his father. 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 He does not drink alcohol excessively and he is not abusing any other drugs. REVIEW OF SYSTEMS: Noncontributory. Medications at this time. 1. DuoNeb. 2. Xanax. 3. Aspirin. 4. Symbicort. 5. Pepcid. 6. Heparin. 7. Lisinopril. 8. IV steroids. 9. Montelukast. 10. Nitroglycerin. 11. Heparin. 12. Spironolactone. On physical examination, blood pressure 128/66, respiratory rate 18, pulse rate of 72, O2 sat on room air is 98%, temperature is 98.4. HEENT reveals pupils are equal. Chest reveals decreased breath sounds, prolonged expiration; no wheeze today. Cardiovascular system reveals an S1 and S2. No S3, no S4. ABDOMEN: Soft. There is no pedal edema. Labs reveal a white count of 15.6, hemoglobin 13.8, PTT of 52.9. Troponin 0.015. Influenza A and B are negative. CT scan of the chest shows evidence of bullous changes, hyperinflation with some elevation of the right hemidiaphragm. IMPRESSION: 1. Coronary artery disease with acute myocardial infarction. 2. Asthma with chronic obstructive pulmonary disease with acute exacerbation. 3. Obesity. At this point in time, from a pulmonary standpoint, would check inspiratory force given that diaphragm is high, we shall check spirometry on him. Continue him on IV steroids. Discontinue his Symbicort and keep him on budesonide nebulizers. Continue bronchodilators. Keep him on Montelukast. His prognosis at this time is fair. Depending on what spirometry ( ) shows, we shall decide on his perioperative risk in case he is to undergo coronary artery bypass surgery. I would like to thank you for allowing me to participate in his care.
[2016-08-08] MEDS: ACETAMINOPHEN TAB 500 MG TAB PO PRN (21:43)
[2016-08-08 22:44] LABS: Hemoglobin A1C 6.1 % (4.2-6.1)
[2016-08-08] MEDS: ALPRAZolam 0.5 MG TAB PO PRN (23:07)
[2016-08-09] MEDS: NITROGLYCERIN OINT 1 INCH/GM PACKET TOPICAL SCH ×5 (00:52→22:59)
[2016-08-09 04:40] LABS: Appearance,Urine Clear (Clear); Bilirubin,Urine Negative (Negative); Glucose,Urine (UA) Negative (Negative); Ketones,Urine Negative (Negative); Leukocyte Esterase,Urine Negative (Negative); Nitrite,Urine Negative (Negative); PH, Urine 5.5 (5.0-8.0); Protein,Urine Negative (Negative); Specific Gravity,Urine 1.021 (1.001-1.035); UA Billing (MACRO vs. MICRO) CHEM; Urobilinogen,Urine <2.0 mg/dL (<2.0)
--- NOTE | 2016-08-09 05:38 | CC ---
DATE OF SERVICE: Mr. Goodman is a 55-year-old male with history of coronary artery disease, status post stenting of the circumflex and the right coronary artery in 2013 who presented with symptoms of exertional chest discomfort requiring nitroglycerin going on for the last year, getting much worse recently. In view of that, recommendation was made regarding cardiac catheterization. The procedure as well as risks and complications were discussed with the patient who is in full understanding and agreement. PROCEDURE: The patient was brought to the cath lab technologist in fasting semi-sedated state after receiving fentanyl and Benadryl and after receiving moderate sedation, he prepped and draped in conventional fashion. Using Xylocaine anesthesia in the Seldinger technique, a 6-Mongolian sheath was introduced in the right radial artery. Selective right and left coronary angiography were performed using 5 Mongolian 3-1/2 Bend right and left Sharonda catheter. Multiple views of the coronary arteries including hemiaxial views were obtained. Following that, a 5-Mongolian tight pigtail catheter was introduced into the left ventricle and a 30-degree MENDOZA view of the left ventricle was obtained. Following that, catheter and sheaths were removed. Hemostasis was obtained with deployment of TR band. There were no immediate complications. Patient was returned to his room in stable condition. Of note, patient received 4500 of intravenous heparin. FINDINGS: LEFT MAIN: This is a large-size vessel bifurcating into left circumflex and left anterior descending artery. Left main coronary artery is without any significant obstructive coronary artery disease. LEFT ANTERIOR DESCENDING ARTERY: This is a large-size vessel reaching toward the apex with wrap around apex segment, giving rise to a large diagonal branch proximally. The diagonal branch has a 99% stenosis proximally after the takeoff of the diagonal branch and the first septal soaking pits supervisor, there is a 70% lesion in the LAD. The rest of the LAD has no evidence of high-grade stenosis. LEFT CIRCUMFLEX: This is a nondominant vessel, large in caliber, giving rise to a distal large obtuse marginal branch. The stented segment in the mid circumflex is patent with no evidence of significant restenosis. There is a 20% to 30% plaque proximal to the stented segment. RIGHT CORONARY ARTERY: This is a large dominant vessel bifurcating distally to a PDA. The stented segment in the distal right coronary artery is patent. Proximal to the stented segment, there is a long diffuse area of stenosis up to 70%. The rest of the vessel has no high-grade stenosis. LEFT VENTRICULOGRAM: Left ventriculogram was performed in 30-degree MENDOZA view and revealed a dilated ventricle. The inferior wall is akinetic. There is anteroapical hypokinesis with 2 to 3+ mitral regurgitation. HEMODYNAMICS: There was no gradient across the aortic valve. The left ventricular end-diastolic pressure was 24 mmHg. CONCLUSION: 1. Critical stenosis involving the takeoff of the diagonal branch as well as the proximal left anterior descending artery. 2. Moderate significant disease in the mid right coronary artery and mild disease in the proximal left circumflex. 3. Severely impaired left ventricular systolic function. RECOMMENDATIONS: In view of the anatomy and the location of the lesion of the LAD and the diagonal branch, I have recommended proceeding with evaluation for coronary artery bypass grafting. The rationale behind the procedure as well as risks and complications were discussed with the patient who is in full understanding and agreement.
--- NOTE | 2016-08-09 05:44 | LTR ---
August 08, 2016 LINSEY YING MD RE: GoodmanBeto Dear Dr. Ying: I had the opportunity to perform cardiac catheterization on Mr. Goodman at [facility] on the 08 of August and a full copy of the procedure note will be forwarded to you. In brief, he was found to have significant disease involving the ostium of the diagonal branch as well as the proximal LAD WITH moderate significant disease in the mid right coronary artery with severely impaired left ventricular systolic function. Based on those findings, I have recommended proceeding with evaluation for coronary artery bypass grafting. I will keep you updated on his progress and thank you again for allowing me the opportunity to participate in his care. Please feel free to call for any questions. Sincerely yours, ZENOBIA MUNOZ MD
[2016-08-09 05:58] LABS: Glucose,Whole Blood 122 mg/dL (75-99)
[2016-08-09] MEDS: INSULIN LISPRO (humaLOG) 300 UNIT/3 ML VIAL SQ SCH ×4 (06:00→21:49)
[2016-08-09 06:29] LABS: Anion Gap 6 mmol/L; Blood Urea Nitrogen 30 mg/dL (9-20); Calcium 9.3 mg/dL (8.4-10.2); Carbon Dioxide 25 mmol/L (22-30); Chloride 107 mmol/L (98-107); Glucose 127 mg/dL (74-99); Non-African American GFR(MDRD) >60 (>60 ml/min/1.73 sqM); Potassium 5.3 mmol/L (3.5-5.1); Sodium 138 mmol/L (137-145)
[2016-08-09 06:51] LABS: Basophils % (A) 0 %; CH 31.2; CHCM 32.3; Eosinophils % (A) 0 %; HCT 39.6 % (39.0-53.0); HDW 2.16; HGB 12.4 gm/dL (13.0-17.5); Luc % (Auto) 1; Lymphocytes # (A) 0.8 k/uL (1.0-4.8); Lymphocytes % (A) 7 %; MCH 30.3 pg (25.0-35.0); MCHC 31.3 g/dL (31.0-37.0); MCV 96.8 fL (80.0-100.0); Mean Platelet Volume 6.8; Monocytes # (A) 0.6 k/uL (0-1.0); Monocytes % (A) 5 %; Neutrophils # (A) 10.4 k/uL (1.3-7.7); Neutrophils % (A) 87 %; RBC 4.09 m/uL (4.30-5.90); RDW 13.6 % (11.5-15.5); WBC 11.9 k/uL (3.8-10.6); WBC (Perox) 12.91
[2016-08-09] MEDS: SPIRONOLACTONE 25 MG TAB PO SCH (08:20)
[2016-08-09] MEDS: METOPROLOL TARTRATE 25 MG TAB PO SCH ×2 (08:20→20:56)
[2016-08-09] MEDS: ASPIRIN 325 MG TAB PO SCH (08:20)
[2016-08-09] MEDS: FAMOTIDINE 20 MG TAB PO SCH ×2 (08:20→20:56)
[2016-08-09] MEDS: LISINOPRIL 5 MG TAB PO SCH (08:20)
[2016-08-09] MEDS: MUPIROCIN 2% OINT 22 GM TUBE NASAL SCH ×2 (08:22→20:56)
[2016-08-09] MEDS: methylPREDNISolone SOD SUCCI 40 MG/ML 1 ML VIAL IV SCH ×3 (08:40→22:57)
[2016-08-09] MEDS: ALPRAZolam 0.25 MG TAB PO PRN ×3 (08:44→23:12)
--- NOTE | 2016-08-09 10:57 | P.PN ---
Subjective Principal diagnosis: chest pain Patient seen and examined. Patient denies chest pain at this time. He states his breathing is much better. He smokes 1 ppd currently. He is still coughing up yellow phlegm. He denies any fevers or chills. Spirometry has yet to be done. Objective - Vital Signs Vital signs: Vital Signs Temp 97.4 F L 08/09/16 07:45 Pulse 63 08/09/16 09:03 Resp 16 08/09/16 09:03 BP 127/64 08/09/16 07:45 Pulse Ox 94 L 08/09/16 07:45 Intake & Output 08/08/16 08/09/16 08/09/16 18:59 06:59 18:59 Intake Total 250 450 180 Output Total 300 Balance 250 150 180 Weight 86 kg Intake: IV 250 Oral 450 180 Output: Urine 300 Other: Voiding Method Toilet Toilet Toilet # Voids 2 1 - Exam Gen.: Patient is alert and oriented 3, no acute distress Cardiovascular: Regular rate and rhythm, S1/S2 Lungs: Diminished breath sounds bilaterally with scattered crackles Abdomen: Soft nontender nondistended positive bowel sounds Extremities: No edema - Labs CBC & Chem 7: 08/09/16 06:03 08/09/16 06:03 Labs: Abnormal Lab Results - Last 24 Hours (Table) 08/08/16 08/08/16 08/08/16 Range/Units 11:23 14:15 14:15 WBC 15.6 H (3.8-10.6) k/uL RBC (4.30-5.90) m/uL Hgb (13.0-17.5) gm/dL Neutrophils # 14.0 H (1.3-7.7) k/uL Lymphocytes # (1.0-4.8) k/uL APTT 52.9 H (22.0-30.0) sec Potassium (3.5-5.1) mmol/L BUN (9-20) mg/dL Glucose (74-99) mg/dL POC Glucose (mg/dL) 134 H (75-99) mg/dL Triglycerides (<150) mg/dL Cholesterol (<200) mg/dL LDL Cholesterol, Calc (0-99) mg/dL HDL Cholesterol (40-60) mg/dL TSH (0.465-4.680) mIU/L Crossmatch 03/07/17 03/07/17 03/07/17 Range/Units 16:36 18:45 18:45 WBC 15.3 H (3.8-10.6) k/uL RBC (4.30-5.90) m/uL Hgb (13.0-17.5) gm/dL Neutrophils # 13.9 H (1.3-7.7) k/uL Lymphocytes # 0.7 L (1.0-4.8) k/uL APTT 21.4 L (22.0-30.0) sec Potassium (3.5-5.1) mmol/L BUN (9-20) mg/dL Glucose (74-99) mg/dL POC Glucose (mg/dL) 128 H (75-99) mg/dL Triglycerides (<150) mg/dL Cholesterol (<200) mg/dL LDL Cholesterol, Calc (0-99) mg/dL HDL Cholesterol (40-60) mg/dL TSH (0.465-4.680) mIU/L Crossmatch 08/08/16 08/08/16 08/08/16 Range/Units 18:45 18:45 20:50 WBC (3.8-10.6) k/uL RBC (4.30-5.90) m/uL Hgb (13.0-17.5) gm/dL Neutrophils # (1.3-7.7) k/uL Lymphocytes # (1.0-4.8) k/uL APTT (22.0-30.0) sec Potassium (3.5-5.1) mmol/L BUN 29 H (9-20) mg/dL Glucose 133 H (74-99) mg/dL POC Glucose (mg/dL) 207 H (75-99) mg/dL Triglycerides 161 H (<150) mg/dL Cholesterol 223 H (<200) mg/dL LDL Cholesterol, Calc 121 H (0-99) mg/dL HDL Cholesterol 70 H (40-60) mg/dL TSH 0.034 L (0.465-4.680) mIU/L Crossmatch See Detail 08/09/16 08/09/16 08/09/16 Range/Units 05:57 06:03 06:03 WBC 11.9 H (3.8-10.6) k/uL RBC 4.09 L (4.30-5.90) m/uL Hgb 12.4 L (13.0-17.5) gm/dL Neutrophils # 10.4 H (1.3-7.7) k/uL Lymphocytes # 0.8 L (1.0-4.8) k/uL APTT (22.0-30.0) sec Potassium 5.3 H (3.5-5.1) mmol/L BUN 30 H (9-20) mg/dL Glucose 127 H (74-99) mg/dL POC Glucose (mg/dL) 122 H (75-99) mg/dL Triglycerides (<150) mg/dL Cholesterol (<200) mg/dL LDL Cholesterol, Calc (0-99) mg/dL HDL Cholesterol (40-60) mg/dL TSH (0.465-4.680) mIU/L Crossmatch Microbiology - Last 24 Hours (Table) 08/08/16 18:30 Nasal Screen MRSA/MSSA (BLADIMIR) - Preliminary Nasal Swab Assessment and Plan Plan: Acute exacerbation of COPD Tracheobronchitis Active tobacco abuse Emphysema Coronary artery disease NSTEMI Obesity Hypertension Dyslipidemia History of prior ND Maintain saturation greater than equal to 88% Bronchodilators and Pulmicort Antibiotics: will add Doxycycline Solu-Medrol Awaiting spirometry and inspiratory force for preoperative clearance Continue Singulair Heparin drip per cardiology Pepcid Smoking cessation is highly recommended Incentive spirometry and pulmonary hygiene
--- NOTE | 2016-08-09 11:10 | PN ---
CHIEF COMPLAINT: Chest pain. HISTORY OF PRESENT ILLNESS: The gentleman is found to have ( ) triple-vessel coronary artery disease and he is being prepared for an urgent bypass. He is asking for more and more narcotic analgesics for his back and he was told that we cannot do that nor can we gave him NSAIDs with upcoming surgery. PHYSICAL EXAM: CHEST: Clear. Cardiac exam is normal. ABDOMEN: Soft, nontender. IMPRESSION: 1. Coronary artery disease. 2. Chronic obstructive pulmonary disease. 3. Unstable angina. 4. Low back pain. PLAN: Prepare for CABG.
[2016-08-09 11:16] LABS: Glucose,Whole Blood 99 mg/dL (75-99)
[2016-08-09] MEDS: IPRATROPIUM-ALBUTEROL 3 ML NEB INHALATION SCH ×4 (11:30→20:13)
[2016-08-09] MEDS: BUDESONIDE 0.5 MG/2 ML NEBU INHALATION SCH ×2 (11:30→20:13)
--- NOTE | 2016-08-09 12:37 | P.PN ---
Subjective Principal diagnosis: Severe coronary artery disease, awaiting possible coronary artery bypass grafting Sitting up in bed in no distress, anxious regarding surgery, not sure he wants surgery. Objective - Vital Signs Vital signs: Vital Signs Temp 97.4 F L 08/09/16 07:45 Pulse 78 08/09/16 11:53 Resp 16 08/09/16 11:01 BP 133/74 08/09/16 11:01 Pulse Ox 94 L 08/09/16 11:01 Intake & Output 08/08/16 08/09/16 08/09/16 18:59 06:59 18:59 Intake Total 250 450 180 Output Total 300 Balance 250 150 180 Weight 86 kg Intake: IV 250 Oral 450 180 Output: Urine 300 Other: Voiding Method Toilet Toilet Toilet # Voids 2 1 - Constitutional General appearance: Present: cooperative, no acute distress - Respiratory Details: Lung sounds diminished bilaterally, resp even/non-labored, currently on room air. - Cardiovascular Details: S1, S2 present. Reg rate/rhythm, NSR on telemetry. No edema present. - Gastrointestinal Gastrointestinal Comment(s): Abd soft/NT/ND. Active bowel sounds x 4 quad. Tolerating diet. - Genitourinary Genitourinary Comment(s): Voiding clear yellow urine. - Musculoskeletal Musculoskeletal: Present: strength equal bilaterally - Psychiatric Psychiatric: Present: A&O x's 3, appropriate affect - Allied health notes Allied health notes reviewed: nursing - Labs CBC & Chem 7: 08/09/16 06:03 08/09/16 06:03 Labs: Abnormal Lab Results - Last 24 Hours (Table) 08/08/16 08/08/16 08/08/16 Range/Units 14:15 14:15 16:36 WBC 15.6 H (3.8-10.6) k/uL RBC (4.30-5.90) m/uL Hgb (13.0-17.5) gm/dL Neutrophils # 14.0 H (1.3-7.7) k/uL Lymphocytes # (1.0-4.8) k/uL APTT 52.9 H (22.0-30.0) sec Potassium (3.5-5.1) mmol/L BUN (9-20) mg/dL Glucose (74-99) mg/dL POC Glucose (mg/dL) 128 H (75-99) mg/dL Triglycerides (<150) mg/dL Cholesterol (<200) mg/dL LDL Cholesterol, Calc (0-99) mg/dL HDL Cholesterol (40-60) mg/dL TSH (0.465-4.680) mIU/L Crossmatch 08/08/16 08/08/16 08/08/16 Range/Units 18:45 18:45 18:45 WBC 15.3 H (3.8-10.6) k/uL RBC (4.30-5.90) m/uL Hgb (13.0-17.5) gm/dL Neutrophils # 13.9 H (1.3-7.7) k/uL Lymphocytes # 0.7 L (1.0-4.8) k/uL APTT 21.4 L (22.0-30.0) sec Potassium (3.5-5.1) mmol/L BUN 29 H (9-20) mg/dL Glucose 133 H (74-99) mg/dL POC Glucose (mg/dL) (75-99) mg/dL Triglycerides 161 H (<150) mg/dL Cholesterol 223 H (<200) mg/dL LDL Cholesterol, Calc 121 H (0-99) mg/dL HDL Cholesterol 70 H (40-60) mg/dL TSH 0.034 L (0.465-4.680) mIU/L Crossmatch 08/08/16 08/08/16 08/09/16 Range/Units 18:45 20:50 05:57 WBC (3.8-10.6) k/uL RBC (4.30-5.90) m/uL Hgb (13.0-17.5) gm/dL Neutrophils # (1.3-7.7) k/uL Lymphocytes # (1.0-4.8) k/uL APTT (22.0-30.0) sec Potassium (3.5-5.1) mmol/L BUN (9-20) mg/dL Glucose (74-99) mg/dL POC Glucose (mg/dL) 207 H 122 H (75-99) mg/dL Triglycerides (<150) mg/dL Cholesterol (<200) mg/dL LDL Cholesterol, Calc (0-99) mg/dL HDL Cholesterol (40-60) mg/dL TSH (0.465-4.680) mIU/L Crossmatch See Detail 08/09/16 08/09/16 Range/Units 06:03 06:03 WBC 11.9 H (3.8-10.6) k/uL RBC 4.09 L (4.30-5.90) m/uL Hgb 12.4 L (13.0-17.5) gm/dL Neutrophils # 10.4 H (1.3-7.7) k/uL Lymphocytes # 0.8 L (1.0-4.8) k/uL APTT (22.0-30.0) sec Potassium 5.3 H (3.5-5.1) mmol/L BUN 30 H (9-20) mg/dL Glucose 127 H (74-99) mg/dL POC Glucose (mg/dL) (75-99) mg/dL Triglycerides (<150) mg/dL Cholesterol (<200) mg/dL LDL Cholesterol, Calc (0-99) mg/dL HDL Cholesterol (40-60) mg/dL TSH (0.465-4.680) mIU/L Crossmatch Microbiology - Last 24 Hours (Table) 08/09/16 04:18 Urine Culture - Preliminary Urine,Voided 08/08/16 18:30 Nasal Screen MRSA/MSSA (BLADIMIR) - Preliminary Nasal Swab - Imaging and Cardiology Chest x-ray: report reviewed, image reviewed Venous US: report reviewed, image reviewed Assessment and Plan (1) Unstable angina pectoris Status: Acute (2) COPD (chronic obstructive pulmonary disease) Status: Acute (3) Hypertension Status: Acute (4) Hyperlipidemia Status: Acute Plan: 1. Continue ASA, statin, BB. 2. Cont to hold Plavix. Will hold KEON in anticipation of CABG soon. 3. Encourage incentive spirometry use. 4. PFT's done: FEV1 52%, NIF -50, discussed with Dr. Panda, pt is cleared for surgery from pulmonary standpoint. 5. Pre-op teaching started, continue to reinforce. 6. BP control. 6. Steroids per pulmonology. 7. GI/DVT prophylaxis 8. More recommendations as patient progresses. Time with Patient: Greater than 30
--- NOTE | 2016-08-09 14:45 | P.PN ---
Subjective 55-year-old being seen today sitting up in bed. Patient currently denying chest pain or shortness of breath when questioning. Patient is scheduled tentatively for open heart surgery tomorrow for cardiovascular service Patient is status post heart catheterization done on the august which showed multivessel coronary artery occlusive disease. Patient's initial presentation to the emergency room was for chest pain and shortness of breath. Is a mild elevated troponin patient was taken to the [facility] underwent a heart catheterization which showed evidence of progression disease. Patient reportedly has a history of prior coronary artery disease prior stenting to the RCA and circumflex in for a ST elevated myocardial infarction. Patient. lost to follow-up. Patient admitted that he been taking several nitroglycerin a day for the past several weeks due to having episodes of chest discomfort. Patient additionally has been seen in the outpatient setting for chronic pain management by patient states he has chronic lower back pain and bilateral chronic tunnel pain and he has been on oxycodone 15 mg 4 times a day. Patient stated that he ran out of the oxycodone had been without it for the past 2 weeks due to having a recent urine drug screen result showing positive amphetamine in which the patient could not get a refill of his oxycodone. Patient was seen this admission by Dr. Bradshaw did restart patient on oxycodone 15 mg 4 times a day Objective - Vital Signs Vital signs: Vital Signs Temp 97.4 F L 08/09/16 07:45 Pulse 78 08/09/16 11:53 Resp 16 08/09/16 11:01 BP 133/74 08/09/16 11:01 Pulse Ox 94 L 08/09/16 11:01 Intake & Output 08/08/16 08/09/16 08/09/16 18:59 06:59 18:59 Intake Total 250 450 180 Output Total 300 Balance 250 150 180 Weight 86 kg Intake: IV 250 Oral 450 180 Output: Urine 300 Other: Voiding Method Toilet Toilet Toilet # Voids 2 1 - Exam Physical exam 55-year-old male sitting up in bed does not appear in any acute distress currently denying chest pain or shortness of breath Lungs a few prolonged expiratory wheezing otherwise clear no cough noted Heart S1-S2 audible regular Abdomen soft nontender no palpable organomegaly Extremities no edema noted - Labs CBC & Chem 7: 08/09/16 06:03 08/09/16 06:03 Labs: Abnormal Lab Results - Last 24 Hours (Table) 08/08/16 08/08/16 08/08/16 Range/Units 14:15 14:15 16:36 WBC 15.6 H (3.8-10.6) k/uL RBC (4.30-5.90) m/uL Hgb (13.0-17.5) gm/dL Neutrophils # 14.0 H (1.3-7.7) k/uL Lymphocytes # (1.0-4.8) k/uL APTT 52.9 H (22.0-30.0) sec Potassium (3.5-5.1) mmol/L BUN (9-20) mg/dL Glucose (74-99) mg/dL POC Glucose (mg/dL) 128 H (75-99) mg/dL Triglycerides (<150) mg/dL Cholesterol (<200) mg/dL LDL Cholesterol, Calc (0-99) mg/dL HDL Cholesterol (40-60) mg/dL TSH (0.465-4.680) mIU/L Crossmatch 08/08/16 08/08/16 08/08/16 Range/Units 18:45 18:45 18:45 WBC 15.3 H (3.8-10.6) k/uL RBC (4.30-5.90) m/uL Hgb (13.0-17.5) gm/dL Neutrophils # 13.9 H (1.3-7.7) k/uL Lymphocytes # 0.7 L (1.0-4.8) k/uL APTT 21.4 L (22.0-30.0) sec Potassium (3.5-5.1) mmol/L BUN 29 H (9-20) mg/dL Glucose 133 H (74-99) mg/dL POC Glucose (mg/dL) (75-99) mg/dL Triglycerides 161 H (<150) mg/dL Cholesterol 223 H (<200) mg/dL LDL Cholesterol, Calc 121 H (0-99) mg/dL HDL Cholesterol 70 H (40-60) mg/dL TSH 0.034 L (0.465-4.680) mIU/L Crossmatch 08/08/16 08/08/16 08/09/16 Range/Units 18:45 20:50 05:57 WBC (3.8-10.6) k/uL RBC (4.30-5.90) m/uL Hgb (13.0-17.5) gm/dL Neutrophils # (1.3-7.7) k/uL Lymphocytes # (1.0-4.8) k/uL APTT (22.0-30.0) sec Potassium (3.5-5.1) mmol/L BUN (9-20) mg/dL Glucose (74-99) mg/dL POC Glucose (mg/dL) 207 H 122 H (75-99) mg/dL Triglycerides (<150) mg/dL Cholesterol (<200) mg/dL LDL Cholesterol, Calc (0-99) mg/dL HDL Cholesterol (40-60) mg/dL TSH (0.465-4.680) mIU/L Crossmatch See Detail 08/09/16 08/09/16 Range/Units 06:03 06:03 WBC 11.9 H (3.8-10.6) k/uL RBC 4.09 L (4.30-5.90) m/uL Hgb 12.4 L (13.0-17.5) gm/dL Neutrophils # 10.4 H (1.3-7.7) k/uL Lymphocytes # 0.8 L (1.0-4.8) k/uL APTT (22.0-30.0) sec Potassium 5.3 H (3.5-5.1) mmol/L BUN 30 H (9-20) mg/dL Glucose 127 H (74-99) mg/dL POC Glucose (mg/dL) (75-99) mg/dL Triglycerides (<150) mg/dL Cholesterol (<200) mg/dL LDL Cholesterol, Calc (0-99) mg/dL HDL Cholesterol (40-60) mg/dL TSH (0.465-4.680) mIU/L Crossmatch Microbiology - Last 24 Hours (Table) 08/09/16 04:18 Urine Culture - Preliminary Urine,Voided 08/08/16 18:30 Nasal Screen MRSA/MSSA ([facility]) - Preliminary Nasal Swab Assessment and Plan Plan: Impression Present on admission shortness of breath suspect due to an acute exacerbation of COPD Current every day smoker 1 pack a day greater than a 20 year history Chronic lower back pain with bilateral carpal tunnel per history with narcotic dependency on oxycodone 15 mg 4 times a day History of asthma Mildly elevated troponins present on admission suspect due to a non-ST elevated VT History of coronary artery disease with prior coronary stenting right coronary and circumflex 2014 CAT scan of the chest no evidence of pulmonary emboli positive for bullous emphysema This admission episode nonsustained V. tach asymptomatic Echocardiogram August 07 F ventricular systolic function severely impaired with an EF between 20 and 25% with moderate pulmonary hypertension Chronic congestive heart failure systolic dysfunction EF 20-25% Status post heart catheterization done on August 08 shows evidence of progression of disease in the right coronary artery and in the LAD system with a patent circumflex stent Plan Resume home meds as appropriate Respiratory treatments as ordered Scheduled tomorrow for possible open-heart surgery Pain management's recommendations Dr. rBadshaw reviewed patient's drug screen as an outpatient needs to be addressed and highlighted the offending medication in order to explain the recent drug test results of a positive amphetamine if this can be accomplished Dr. Bradshaw will see the patient for chronic pain management in the outpatient setting DVT and GI prophylaxis Continue with the Singulair as ordered Further recommendations pending The above dictated assessment and findings were discussed with dr stewart Impression and the plan of care have been dictated as directed. Maribel Gooden nurse practitioner acting as a scribe for dr stewart
--- NOTE | 2016-08-09 14:56 | P.PN ---
Subjective Principal diagnosis: Chest pain This is a 55-year-old gentleman with known history of coronary artery disease, patient underwent angioplasty with stent placement of the right coronary artery and left circumflex artery in 2013, history of hypertension, hyperlipidemia, nicotine dependence, COPD. He's presented to the hospital on this occasion with symptoms of shortness of breath so stated cough of productive sputum, green in color. Patient states that he's been experiencing chest pressure and heaviness with associated exertional shortness of breath for the past few months, worsening recently. Patient has been taking several nitroglycerin a day, he states that they relief of symptoms but shortly thereafter symptoms return. This has been going on for a month or more. Patient underwent a cardiac catheterization yesterday which revealed critical stenosis involving the diagonal branch and proximal LAD. Moderately significant disease in the mid RCA and mild disease in the circumflex. Severely impaired left ventricular systolic function. Patient was referred for coronary artery bypass grafting surgery, he was seen in consultation by cardiothoracic surgery and is scheduled to undergo surgery tomorrow. Hemodynamically stable. WBC 11.9, potassium 5.3, BUN 30, creatinine 0.8. Objective - Vital Signs Vital signs: Vital Signs Temp 97.4 F L 08/09/16 07:45 Pulse 78 08/09/16 11:53 Resp 16 08/09/16 11:01 BP 133/74 08/09/16 11:01 Pulse Ox 94 L 08/09/16 11:01 Intake & Output 08/08/16 08/09/16 08/09/16 18:59 06:59 18:59 Intake Total 250 450 180 Output Total 300 Balance 250 150 180 Weight 86 kg Intake: IV 250 Oral 450 180 Output: Urine 300 Other: Voiding Method Toilet Toilet Toilet # Voids 2 1 - Exam PHYSICAL EXAMINATION: HEENT: Head is atraumatic, normocephalic. Pupils equal, round. Neck is supple. There is no elevated jugular venous pressure. HEART EXAMINATION: Heart S1, S2 normal. No murmur or gallop heard. CHEST EXAMINATION: Lungs reveal scattered wheezes throughout with decreased air exchange. ABDOMEN: Soft, nontender. Bowel sounds are heard. No organomegaly noted. Right radial site clean and dry, good distal pulse. EXTREMITIES: 2+ peripheral pulses with no evidence of peripheral edema and no calf tenderness noted. NEUROLOGIC patient is awake, alert and oriented -3. . - Labs CBC & Chem 7: 08/09/16 06:03 08/09/16 06:03 Labs: Abnormal Lab Results - Last 24 Hours (Table) 08/08/16 08/08/16 08/08/16 Range/Units 16:36 18:45 18:45 WBC 15.3 H (3.8-10.6) k/uL RBC (4.30-5.90) m/uL Hgb (13.0-17.5) gm/dL Neutrophils # 13.9 H (1.3-7.7) k/uL Lymphocytes # 0.7 L (1.0-4.8) k/uL APTT 21.4 L (22.0-30.0) sec Potassium (3.5-5.1) mmol/L BUN (9-20) mg/dL Glucose (74-99) mg/dL POC Glucose (mg/dL) 128 H (75-99) mg/dL Triglycerides (<150) mg/dL Cholesterol (<200) mg/dL LDL Cholesterol, Calc (0-99) mg/dL HDL Cholesterol (40-60) mg/dL TSH (0.465-4.680) mIU/L Crossmatch 08/08/16 08/08/16 08/08/16 Range/Units 18:45 18:45 20:50 WBC (3.8-10.6) k/uL RBC (4.30-5.90) m/uL Hgb (13.0-17.5) gm/dL Neutrophils # (1.3-7.7) k/uL Lymphocytes # (1.0-4.8) k/uL APTT (22.0-30.0) sec Potassium (3.5-5.1) mmol/L BUN 29 H (9-20) mg/dL Glucose 133 H (74-99) mg/dL POC Glucose (mg/dL) 207 H (75-99) mg/dL Triglycerides 161 H (<150) mg/dL Cholesterol 223 H (<200) mg/dL LDL Cholesterol, Calc 121 H (0-99) mg/dL HDL Cholesterol 70 H (40-60) mg/dL TSH 0.034 L (0.465-4.680) mIU/L Crossmatch See Detail 08/09/16 08/09/1608/09/17 Range/Units 05:57 06:03 06:03 WBC 11.9 H (3.8-10.6) k/uL RBC 4.09 L (4.30-5.90) m/uL Hgb 12.4 L (13.0-17.5) gm/dL Neutrophils # 10.4 H (1.3-7.7) k/uL Lymphocytes # 0.8 L (1.0-4.8) k/uL APTT (22.0-30.0) sec Potassium 5.3 H (3.5-5.1) mmol/L BUN 30 H (9-20) mg/dL Glucose 127 H (74-99) mg/dL POC Glucose (mg/dL) 122 H (75-99) mg/dL Triglycerides (<150) mg/dL Cholesterol (<200) mg/dL LDL Cholesterol, Calc (0-99) mg/dL HDL Cholesterol (40-60) mg/dL TSH (0.465-4.680) mIU/L Crossmatch Microbiology - Last 24 Hours (Table) 08/09/16 04:18 Urine Culture - Preliminary Urine,Voided 08/08/16 18:30 Nasal Screen MRSA/MSSA ([facility]) - Preliminary Nasal Swab Assessment and Plan Plan: Assessment and plan #1 symptoms of one to two-month duration of chest pressure and heaviness with associated exertional shortness of breath, abnormal troponins, EKG changes, suggestive of acute coronary syndrome. #2 symptoms of productive cough of green sputum, possible acute tracheobronchitis and exacerbation of COPD, low-grade temp 99.1. Currently on IV steroids. #3 known history of coronary artery disease with prior stenting of the circumflex and RCA in 2013. #4 nicotine dependence #5 hypertension #6 hyperlipidemia #7 COPD Plan Patient underwent a cardiac catheterization yesterday which revealed triple vessel coronary artery disease. Patient is scheduled to undergo coronary bypass grafting surgery tomorrow. We will continue to follow. DNP note has been reviewed, I agree with a documented findings and plan of care. Patient was seen and examined.
[2016-08-09] MEDS: ACETAMINOPHEN TAB 500 MG TAB PO PRN (15:25)
[2016-08-09 16:48] LABS: Glucose,Whole Blood 149 mg/dL (75-99)
[2016-08-09] MEDS: MONTELUKAST 10 MG TAB PO SCH (20:55)
[2016-08-09] MEDS: DOXYCYCLINE 50 MG CAP PO SCH (20:55)
[2016-08-09] MEDS ORDERED: ATORVASTATIN 80 MG TAB PO SCH (21:00)
[2016-08-09 21:20] LABS: Glucose,Whole Blood 183 mg/dL (75-99)
[2016-08-10] MEDS ORDERED: ceFAZolin 2 GM in SODIUM CHLORIDE 0.9% 30 ML IVPB PRN (05:00)
[2016-08-10] MEDS ORDERED: ALBUMIN HUMAN 5% 500 ML in EMPTY BAG 1 BAG IVPB PRN ×6 (05:00)
[2016-08-10] MEDS ORDERED: DEXTROSE 5% IN WATER 1,000 ML with POTASSIUM CHLORIDE 25 MEQ, SODIUM CHLORIDE 4MEQ/ML V... IV PRN ×6 (05:00)
[2016-08-10] MEDS ORDERED: PROTAMINE SULFATE 10 MG/ML 25 ML VIAL IV PRN (05:00)
[2016-08-10] MEDS ORDERED: NITROGLYCERIN-D5W PMX 25 MG/250 ML BTL IV PRN (05:00)
[2016-08-10] MEDS ORDERED: PAPAVERINE 360 MG in SODIUM CHLORIDE 0.9% 90 ML IV PRN (05:00)
[2016-08-10] MEDS ORDERED: CALCIUM CHLORIDE 100 MG/ML 10 ML SYRINGE IVP PRN (05:00)
[2016-08-10] MEDS ORDERED: CLEVIDIPINE BUTYRATE 25 MG in EMPTY BAG 1 BAG IV PRN (05:00)
[2016-08-10] MEDS ORDERED: INSULIN REGULAR 100 UNIT in SODIUM CHLORIDE 0.9% 100 ML IV PRN (05:00)
[2016-08-10] MEDS ORDERED: NOREPINEPHRINE 4 MG in SODIUM CHLORIDE 0.9% 250 ML IV PRN (05:00)
[2016-08-10] MEDS ORDERED: SODIUM BICARB 8.4% 50 ML SYR (1 MEQ/ML) IV PRN (05:00)
[2016-08-10] MEDS ORDERED: HEPARIN SODIUM 1,000 UNIT/ML VIAL IV PRN (05:00)
[2016-08-10] MEDS ORDERED: AMINOCAPROIC ACID 250 MG/ML 20 ML VIAL IV PRN (05:00)
[2016-08-10] MEDS ORDERED: DEXTROSE 5% IN WATER 1,000 ML with POTASSIUM CHLORIDE 110 MEQ, MAGNESIUM SULFATE 16 MEQ... IV PRN ×5 (05:00)
[2016-08-10] MEDS ORDERED: METOPROLOL TARTRATE 25 MG TAB PO ONE (05:00)
[2016-08-10] MEDS ORDERED: LACTATED RINGERS 1,000 ML IV PRN (05:00)
[2016-08-10] MEDS ORDERED: ALBUMIN HUMAN 25% 50 ML in EMPTY BAG 1 BAG IVPB PRN (05:00)
[2016-08-10] MEDS ORDERED: MANNITOL 25% 12.5 GM/50 ML VIAL IV PRN ×2 (05:00)
[2016-08-10] MEDS ORDERED: AMINOCAPROIC ACID 5,000 MG in DEXTROSE 5% IN WATER 50 ML IV PRN ×4 (05:00)
[2016-08-10] MEDS ORDERED: ATORVASTATIN 10 MG TAB PO ONE (05:00)
[2016-08-10] MEDS ORDERED: PROTAMINE SULFATE 250 MG in EMPTY BAG 1 BAG IV PRN (05:00)
[2016-08-10] MEDS ORDERED: ASPIRIN 325 MG TAB PO ONE (05:00)
[2016-08-10] MEDS ORDERED: PHENYLEPHRINE-0.9% NACL SYG 1 MG/10 ML SYRINGE IV PRN ×4 (05:00)
[2016-08-10] MEDS ORDERED: ceFAZolin 2,000 MG in SODIUM CHLORIDE 0.9% 30 ML IVPB PRN (05:00)
[2016-08-10] MEDS ORDERED: ceFAZolin 1,000 MG in SODIUM CHLORIDE 0.9% IRRIGATIO 1,000 ML IRRIGATION PRN (05:00)
[2016-08-10] MEDS ORDERED: NITROGLYCERIN-D5W PMX 50 MG in DEXTROSE/WATER 1 250ML.BAG IV PRN (05:00)
[2016-08-10] MEDS ORDERED: PHENYLEPHRINE 40 MG in SODIUM CHLORIDE 0.9% 250 ML IV PRN (05:00)
[2016-08-10] MEDS ORDERED: HEPARIN SODIUM,PORCINE 5,000 UNIT in SODIUM CHLORIDE 0.9% 500 ML IV PRN (05:00)
[2016-08-10] MEDS ORDERED: MAGNESIUM SULFATE SYG 4.06 MEQ/ML SYRINGE IV PRN (05:00)
[2016-08-10] MEDS ORDERED: CHLORHEXIDINE GLUCONATE 15 ML CUP MUCOUS MEM PRN (05:00)
[2016-08-10] MEDS ORDERED: PROPOFOL 500 MG in EMPTY BAG 1 BAG IV PRN (05:00)
[2016-08-10 06:32] LABS: Basophils % (A) 0 %; CH 31.5; CHCM 32.6; Eosinophils % (A) 0 %; HCT 42.2 % (39.0-53.0); HDW 2.14; HGB 13.5 gm/dL (13.0-17.5); Luc # (Auto) 0.13; Luc % (Auto) 1; Lymphocytes # (A) 1.1 k/uL (1.0-4.8); Lymphocytes % (A) 10 %; Mean Platelet Volume 6.7; Monocytes # (A) 0.5 k/uL (0-1.0); Monocytes % (A) 5 %; Neutrophils # (A) 8.7 k/uL (1.3-7.7); Neutrophils % (A) 84 %; RBC 4.35 m/uL (4.30-5.90); RDW 13.7 % (11.5-15.5); WBC 10.4 k/uL (3.8-10.6); WBC (Perox) 10.96
[2016-08-10 06:37] LABS: Glucose,Whole Blood 118 mg/dL (75-99)
[2016-08-10] MEDS: INSULIN LISPRO (humaLOG) 300 UNIT/3 ML VIAL SQ SCH (06:41)
[2016-08-10 06:52] LABS: INR 1.1 (<1.1); Prothrombin Time 10.9 sec (9.0-12.0)
[2016-08-10 07:15] LABS: Partial Thromboplastin Time 20.7 sec (22.0-30.0)
[2016-08-10] MEDS: IPRATROPIUM-ALBUTEROL 3 ML NEB INHALATION SCH ×4 (08:26→23:16)
[2016-08-10] MEDS: BUDESONIDE 0.5 MG/2 ML NEBU INHALATION SCH (08:26)
[2016-08-10] MEDS ORDERED: ELECTROLYTE-R (PH 7.4) 1,000 ML IV.SOLN IV ONE (11:39)
[2016-08-10] MEDS ORDERED: fentaNYL (PF) 50 MCG/ML 50 ML VIAL ONE (11:39)
[2016-08-10] MEDS ORDERED: ETOMIDATE 2 MG/ML 10 ML VIAL ONE (11:39)
[2016-08-10] MEDS ORDERED: fentaNYL (PF) 50 MCG/ML 2 ML AMP ONE (11:39)
[2016-08-10] MEDS ORDERED: VECURONIUM 10 MG VIAL IV ONE (11:39)
[2016-08-10] MEDS ORDERED: HEPARIN SODIUM 1,000 UNIT/ML VIAL ONE (11:39)
[2016-08-10] MEDS ORDERED: SODIUM CHLORIDE 0.9% IRRIG 1,000 ML BTL IRRIGATION ONE (11:39)
[2016-08-10] MEDS ORDERED: MIDAZOLAM 2 MG/2 ML VIAL ONE (11:39)
[2016-08-10] MEDS ORDERED: ALBUMIN HUMAN 5% 500 ML VIAL IVPB ONE (11:39)
[2016-08-10] MEDS ORDERED: HEPARIN SODIUM,PORCINE 5,000 UNIT/ML 1 ML VIAL ONE (11:39)
--- NOTE | 2016-08-10 12:02 | P.PN ---
Progress Note - Text I attempted to see patient this morning however he was in the operating room for his cardiac surgery. Will attempt to see later today.
[2016-08-10 12:27] LABS: Glucose,Whole Blood 108 mg/dL (75-99)
[2016-08-10 14:35] LABS: Glucose,Whole Blood 77 mg/dL (75-99)
[2016-08-10 15:24] LABS: Glucose,Whole Blood 196 mg/dL (75-99)
[2016-08-10 15:49] LABS: Glucose,Whole Blood 202 mg/dL (75-99)
--- NOTE | 2016-08-10 16:14 | P.PN ---
Subjective Principal diagnosis: Chest pain This is a 55-year-old gentleman with known history of coronary artery disease, patient underwent angioplasty with stent placement of the right coronary artery and left circumflex artery in 2013, history of hypertension, hyperlipidemia, nicotine dependence, COPD. He's presented to the hospital on this occasion with symptoms of shortness of breath so stated cough of productive sputum, green in color. Patient states that he's been experiencing chest pressure and heaviness with associated exertional shortness of breath for the past few months, worsening recently. Patient has been taking several nitroglycerin a day, he states that they relief of symptoms but shortly thereafter symptoms return. This has been going on for a month or more. Patient underwent a cardiac catheterization yesterday which revealed critical stenosis involving the diagonal branch and proximal LAD. Moderately significant disease in the mid RCA and mild disease in the circumflex. Severely impaired left ventricular systolic function. Patient was referred for coronary artery bypass grafting surgery, he was seen in consultation by cardiothoracic surgery and is scheduled to undergo surgerytoday. Hemodynamically stable. Objective - Vital Signs Vital signs: Vital Signs Temp 98.2 F 08/10/16 08:00 Pulse 65 08/10/16 08:00 Resp 18 08/10/16 08:00 BP 117/76 08/10/16 08:00 Pulse Ox 93 L 08/10/16 08:00 Intake & Output 08/09/16 08/10/16 08/10/16 18:59 06:59 18:59 Intake Total 540 10 33 Balance 540 10 33 Weight 85.2 kg Intake: IV 10 33 Lactated Ringers 1,000 ml 10 @ 10 mls/hr IV .Q24H PRN Rx#:[id number] Oral 540 Other: Voiding Method Toilet Toilet Toilet # Voids 1 1 - Exam PHYSICAL EXAMINATION: HEENT: Head is atraumatic, normocephalic. Pupils equal, round. Neck is supple. There is no elevated jugular venous pressure. HEART EXAMINATION: Heart S1, S2 normal. No murmur or gallop heard. CHEST EXAMINATION: Lungs reveal scattered wheezes throughout with decreased air exchange. ABDOMEN: Soft, nontender. Bowel sounds are heard. No organomegaly noted. Right radial site clean and dry, good distal pulse. EXTREMITIES: 2+ peripheral pulses with no evidence of peripheral edema and no calf tenderness noted. NEUROLOGIC patient is awake, alert and oriented -3. . - Labs CBC & Chem 7: 08/10/16 05:52 08/09/16 06:03 Labs: Abnormal Lab Results - Last 24 Hours (Table) 08/08/16 08/09/16 08/09/16 Range/Units 18:45 16:32 21:19 Neutrophils # (1.3-7.7) k/uL APTT (22.0-30.0) sec POC Glucose (mg/dL) 149 H 183 H (75-99) mg/dL Crossmatch See Detail 08/10/16 08/10/16 08/10/16 Range/Units 05:52 05:52 06:36 Neutrophils # 8.7 H (1.3-7.7) k/uL APTT 20.7 L (22.0-30.0) sec POC Glucose (mg/dL) 118 H (75-99) mg/dL Crossmatch 08/10/16 08/10/16 08/10/16 Range/Units 12:23 15:21 15:46 Neutrophils # (1.3-7.7) k/uL APTT (22.0-30.0) sec POC Glucose (mg/dL) 108 H 196 H 202 H (75-99) mg/dL Crossmatch Microbiology - Last 24 Hours (Table) 08/09/16 04:18 Urine Culture - Final Urine,Voided 08/08/16 18:30 Nasal Screen MRSA/MSSA ([facility]) - Final Nasal Swab Assessment and Plan Plan: Assessment and plan #1 symptoms of one to two-month duration of chest pressure and heaviness with associated exertional shortness of breath, abnormal troponins, EKG changes, suggestive of acute coronary syndrome. #2 symptoms of productive cough of green sputum, possible acute tracheobronchitis and exacerbation of COPD, low-grade temp 99.1. Currently on IV steroids. #3 known history of coronary artery disease with prior stenting of the circumflex and RCA in 2013. #4 nicotine dependence #5 hypertension #6 hyperlipidemia #7 COPD Plan Patient underwent a cardiac catheterization which revealed triple vessel coronary artery disease. Patient is scheduled to undergo coronary bypass grafting surgery today. We will continue to follow. DNP note has been reviewed, I agree with a documented findings and plan of care. Patient was seen and examined.
[2016-08-10 16:21] LABS: Glucose,Whole Blood 202 mg/dL (75-99)
[2016-08-10] MEDS ORDERED: Potassium Replacement Protocol 1 EACH MISC MISCELLANE PRN (16:46)
[2016-08-10] MEDS ORDERED: METOCLOPRAMIDE 5 MG/ML 2 ML VIAL IVP PRN (16:46)
[2016-08-10] MEDS ORDERED: Phosphorus Replacement Protoco 1 EACH MISC MISCELLANE PRN (16:46)
[2016-08-10] MEDS ORDERED: Magnesium Replacement Protocol 1 EACH MISC MISCELLANE PRN (16:46)
[2016-08-10] MEDS ORDERED: ONDANSETRON 4 MG/2 ML VIAL IVP PRN (16:46)
[2016-08-10] MEDS ORDERED: BENZOCAINE/MENTHOL LOZENG 1 EACH LOZENGE MUCOUS MEM PRN (16:46)
--- NOTE | 2016-08-10 16:48 | PN ---
DATE OF SERVICE: 08/10/2016 CHIEF COMPLAINT: Unstable angina and coronary artery disease. HISTORY OF PRESENT ILLNESS: This gentleman is going today for this 3 vessel CABG . He is stable. PHYSICAL EXAMINATION: Chest is clear. CARDIAC: Exam is unremarkable. Abdomen is soft, nontender. IMPRESSION: 1. Unstable angina pectoris. 2. Triple-vessel coronary artery disease. 3. Chronic obstructive pulmonary disease. PLAN: Surgery today.
[2016-08-10 17:31] LABS: Glucose,Whole Blood 126 mg/dL (75-99)
[2016-08-10] MEDS ORDERED: CALCIUM GLUCONATE 2,000 MG in SODIUM CHLORIDE 0.9% 100 ML IVPB PRN (18:00)
[2016-08-10] MEDS ORDERED: INSULIN REGULAR 100 UNIT in SODIUM CHLORIDE 0.9% 100 ML IV SCH (18:08)
[2016-08-10] MEDS ORDERED: PROPOFOL 50 ML IV ONE (18:21)
[2016-08-10 18:51] LABS: Glucose,Whole Blood 108 mg/dL (75-99)
[2016-08-10] MEDS ORDERED: LIDOCAINE 2% SYG (PF) 100 MG/5 ML ONE (18:59)
[2016-08-10 19:06] LABS: Basophils % (A) 0 %; CH 31.4; CHCM 32.5; Eosinophils # (A) 0.1 k/uL (0-0.7); Eosinophils % (A) 0 %; HCT 33.3 % (39.0-53.0); HDW 2.18; HGB 10.9 gm/dL (13.0-17.5); Ionized Calcium 4.8 mg/dL (4.5-5.3); Luc # (Auto) 0.12; Luc % (Auto) 1; Lymphocytes # (A) 2.3 k/uL (1.0-4.8); Lymphocytes % (A) 14 %; MCH 31.8 pg (25.0-35.0); MCHC 32.8 g/dL (31.0-37.0); MCV 96.9 fL (80.0-100.0); Monocytes # (A) 0.8 k/uL (0-1.0); Monocytes % (A) 5 %; Neutrophils # (A) 12.9 k/uL (1.3-7.7); Neutrophils % (A) 80 %; RBC 3.44 m/uL (4.30-5.90); RDW 13.5 % (11.5-15.5); WBC 16.1 k/uL (3.8-10.6); WBC (Perox) 17.16
[2016-08-10 19:09] LABS: INR 1.3 (<1.1)
[2016-08-10 19:10] LABS: Partial Thromboplastin Time 22.8 sec (22.0-30.0); Prothrombin Time 12.5 sec (9.0-12.0)
[2016-08-10 19:15] LABS: ALT 32 U/L (21-72); AST 29 U/L (17-59); Alkaline Phosphatase 30 U/L (38-126); Anion Gap 5 mmol/L; Blood Urea Nitrogen 22 mg/dL (9-20); Calcium 7.7 mg/dL (8.4-10.2); Carbon Dioxide 28 mmol/L (22-30); Chloride 103 mmol/L (98-107); Glucose 97 mg/dL (74-99); Magnesium 2.2 mg/dL (1.6-2.3); Non-African American GFR(MDRD) >60 (>60 ml/min/1.73 sqM); Potassium 4.2 mmol/L (3.5-5.1); Sodium 136 mmol/L (137-145); Total Bilirubin 0.7 mg/dL (0.2-1.3); Total Protein 4.6 g/dL (6.3-8.2)
[2016-08-10] MEDS: NITROGLYCERIN-D5W PMX 50 MG in DEXTROSE/WATER 1 250ML.BAG IV SCH (19:22)
[2016-08-10] MEDS: LACTATED RINGERS 1,000 ML IV SCH (19:24)
[2016-08-10] MEDS: ACETAMINOPHEN IV (For NPO) 1,000 MG in EMPTY BAG 1 BAG IVPB SCH (19:24)
[2016-08-10] MEDS: methylPREDNISolone SOD SUCCI 40 MG/ML 1 ML VIAL IV SCH ×2 (19:24→23:50)
--- NOTE | 2016-08-10 19:24 | XR ---
EXAMINATION TYPE: XR chest 1V portable DATE OF EXAM: 08/10/2016 7:11 PM COMPARISON: 08/06/2016 HISTORY: Postop surgery TECHNIQUE: Single frontal view of the chest is obtained. FINDINGS: There are sternal wires. Endotracheal tube is somewhat low and is less than 2 cm from the florin. There is a nasogastric tube. There is a right jugular catheter with the tip in the pulmonary artery. There is bilateral chest tubes noted. I see no pneumothorax. There is no gross heart failure. There is a poor inspiration. IMPRESSION: Endotracheal tube is somewhat low and could be pulled back 2 cm. There is poor inspirati on with basilar probable atelectasis. No pneumothorax. No gross heart failure.
[2016-08-10 19:28] LABS: ABG Base Excess 0.2 mmol/L; ABG HCO3 26 mmol/L (21-25); ABG PCO2 56 mmHg (35-45); ABG PH 7.29 (7.35-7.45); ABG PO2 105 mmHg (83-108); ABG TCO2 28 mmol/L (19-24)
[2016-08-10] MEDS: MORPHINE SULFATE 2 MG/ML SYRINGE IVP PRN ×3 (19:32→23:46)
[2016-08-10 19:47] LABS: Glucose,Whole Blood 102 mg/dL (75-99)
[2016-08-10] MEDS: CLEVIDIPINE BUTYRATE 25 MG in EMPTY BAG 1 BAG IV SCH (19:52)
[2016-08-10] MEDS: PROPOFOL 500 MG in EMPTY BAG 1 BAG IV SCH ×3 (19:56→22:57)
[2016-08-10] MEDS: ALBUMIN HUMAN 5% 250 ML in EMPTY BAG 1 BAG IVPB PRN ×2 (19:58→20:00)
[2016-08-10 20:09] LABS: Glucose,Whole Blood 109 mg/dL (75-99)
[2016-08-10 20:54] LABS: ABG Base Excess 0.2 mmol/L; ABG HCO3 25 mmol/L (21-25); ABG PCO2 49 mmHg (35-45); ABG PH 7.34 (7.35-7.45); ABG PO2 82 mmHg (83-108); ABG TCO2 27 mmol/L (19-24)
[2016-08-10 20:54] LABS: Glucose,Whole Blood 115 mg/dL (75-99)
[2016-08-10] MEDS: LIDOCAINE-D5W PMX 2G/500ML 2,000 MG in DEXTROSE/WATER 1 500ML.BAG IV SCH (20:57)
[2016-08-10] MEDS: NOREPINEPHRINE 16 MG in SODIUM CHLORIDE 0.9% 250 ML IV SCH (21:00)
[2016-08-10] MEDS: MUPIROCIN 2% OINT 22 GM TUBE NASAL SCH (21:35)
[2016-08-10 21:46] LABS: Glucose,Whole Blood 140 mg/dL (75-99)
[2016-08-10] MEDS ORDERED: CISATRACURIUM 2 MG/ML 5 ML VIAL IV ONE (21:56)
[2016-08-10] MEDS ORDERED: HYDROmorphone 1 MG/ML 1 ML SYRINGE IVP SCH (22:00)
[2016-08-10] MEDS ORDERED: HYDROmorphone 2 MG/ML 1 ML SYRINGE IM PRN (22:03)
[2016-08-10 22:06] LABS: Glucose,Whole Blood 130 mg/dL (75-99)
[2016-08-10] MEDS: CISATRACURIUM 200 MG in SODIUM CHLORIDE 0.9% 180 ML IV SCH (22:15)
[2016-08-10] MEDS: HYDROmorphone 2 MG/ML 1 ML SYRINGE IVP PRN (22:27)
[2016-08-10 22:41] LABS: Glucose,Whole Blood 158 mg/dL (75-99)
[2016-08-10 22:47] LABS: Basophils % (A) 0 %; CH 31.5; CHCM 32.9; Eosinophils % (A) 0 %; HCT 32.2 % (39.0-53.0); HDW 2.27; HGB 10.4 gm/dL (13.0-17.5); Luc # (Auto) 0.14; Luc % (Auto) 1; Lymphocytes # (A) 1.4 k/uL (1.0-4.8); Lymphocytes % (A) 8 %; MCHC 32.2 g/dL (31.0-37.0); MCV 96.3 fL (80.0-100.0); Mean Platelet Volume 7.8; Monocytes % (A) 6 %; Neutrophils # (A) 14.1 k/uL (1.3-7.7); Neutrophils % (A) 85 %; RBC 3.34 m/uL (4.30-5.90); RDW 13.5 % (11.5-15.5); WBC 16.7 k/uL (3.8-10.6); WBC (Perox) 17.06
[2016-08-10 22:56] LABS: Ionized Calcium 4.7 mg/dL (4.5-5.3)
[2016-08-10 23:05] LABS: INR 1.2 (<1.1); Partial Thromboplastin Time 30.2 sec (22.0-30.0); Prothrombin Time 11.8 sec (9.0-12.0)
[2016-08-10 23:06] LABS: ALT 33 U/L (21-72); AST 34 U/L (17-59); Alkaline Phosphatase 38 U/L (38-126); Anion Gap 5 mmol/L; Blood Urea Nitrogen 20 mg/dL (9-20); Calcium 7.8 mg/dL (8.4-10.2); Carbon Dioxide 28 mmol/L (22-30); Chloride 102 mmol/L (98-107); Glucose 144 mg/dL (74-99); Non-African American GFR(MDRD) >60 (>60 ml/min/1.73 sqM); Phosphorous 3.2 mg/dL (2.5-4.5); Sodium 135 mmol/L (137-145); Total Bilirubin 0.7 mg/dL (0.2-1.3); Total Protein 4.9 g/dL (6.3-8.2)
[2016-08-10] MEDS: HYDROmorphone 1 MG/ML 1 ML SYRINGE IVP PRN (23:14)
[2016-08-10 23:20] LABS: Glucose,Whole Blood 150 mg/dL (75-99)
[2016-08-10] MEDS: ARTIFICIAL TEARS OINTMENT 3.5 GM TUBE BOTH EYES SCH (23:48)
[2016-08-10] MEDS: ceFAZolin 2 GM in SODIUM CHLORIDE 0.9% 100 ML IVPB SCH (23:49)
[2016-08-11 00:17] LABS: Glucose,Whole Blood 140 mg/dL (75-99)
[2016-08-11] MEDS: MAGNESIUM SULFATE-D5W PMX 1 GM in DEXTROSE/WATER 1 100ML.BAG IVPB SCH ×2 (00:18→01:23)
[2016-08-11] MEDS: HYDROmorphone 2 MG/ML 1 ML SYRINGE IVP PRN (00:41)
[2016-08-11 01:15] LABS: Glucose,Whole Blood 148 mg/dL (75-99)
[2016-08-11 02:18] LABS: Glucose,Whole Blood 153 mg/dL (75-99)
[2016-08-11] MEDS: MILRINONE-D5W PMX 20 MG in DEXTROSE/WATER 1 100ML.BAG IV SCH (02:25)
[2016-08-11] MEDS: IPRATROPIUM-ALBUTEROL 3 ML NEB INHALATION SCH ×5 (03:03→19:17)
[2016-08-11 03:14] LABS: Glucose,Whole Blood 143 mg/dL (75-99)
[2016-08-11] MEDS: PROPOFOL 500 MG in EMPTY BAG 1 BAG IV SCH (03:38)
[2016-08-11 04:20] LABS: Glucose,Whole Blood 129 mg/dL (75-99)
[2016-08-11 04:26] LABS: Basophils % (A) 0 %; CH 31.3; CHCM 32.3; Eosinophils % (A) 0 %; HCT 33.6 % (39.0-53.0); HDW 2.23; HGB 10.8 gm/dL (13.0-17.5); Luc # (Auto) 0.12; Luc % (Auto) 1; Lymphocytes # (A) 0.9 k/uL (1.0-4.8); Lymphocytes % (A) 7 %; MCH 31.2 pg (25.0-35.0); MCV 97.5 fL (80.0-100.0); Mean Platelet Volume 7.5; Monocytes # (A) 0.7 k/uL (0-1.0); Monocytes % (A) 5 %; Neutrophils # (A) 11.7 k/uL (1.3-7.7); Neutrophils % (A) 87 %; RBC 3.45 m/uL (4.30-5.90); RDW 13.4 % (11.5-15.5); WBC 13.5 k/uL (3.8-10.6); WBC (Perox) 13.73
[2016-08-11] MEDS: HYDROmorphone 1 MG/ML 1 ML SYRINGE IVP PRN ×3 (04:27→07:46)
[2016-08-11 04:35] LABS: Ionized Calcium 4.7 mg/dL (4.5-5.3)
[2016-08-11] MEDS: HEPARIN SODIUM,PORCINE 5,000 UNIT/ML 1 ML VIAL SQ SCH ×3 (04:37→16:21)
[2016-08-11] MEDS: ARTIFICIAL TEARS OINTMENT 3.5 GM TUBE BOTH EYES SCH ×4 (04:39→16:20)
[2016-08-11 04:40] LABS: ALT 38 U/L (21-72); AST 34 U/L (17-59); Alkaline Phosphatase 36 U/L (38-126); Anion Gap 5 mmol/L; Blood Urea Nitrogen 19 mg/dL (9-20); Calcium 7.9 mg/dL (8.4-10.2); Carbon Dioxide 30 mmol/L (22-30); Chloride 102 mmol/L (98-107); Glucose 129 mg/dL (74-99); Magnesium 2.5 mg/dL (1.6-2.3); Non-African American GFR(MDRD) >60 (>60 ml/min/1.73 sqM); Potassium 5.4 mmol/L (3.5-5.1); Sodium 137 mmol/L (137-145); Total Bilirubin 0.3 mg/dL (0.2-1.3)
[2016-08-11] MEDS: ACETAMINOPHEN IV (For NPO) 1,000 MG in EMPTY BAG 1 BAG IVPB SCH ×4 (04:43→18:33)
[2016-08-11 05:13] LABS: Glucose,Whole Blood 133 mg/dL (75-99)
[2016-08-11] MEDS: MORPHINE SULFATE 2 MG/ML SYRINGE IVP PRN (05:14)
[2016-08-11 06:15] LABS: Glucose,Whole Blood 138 mg/dL (75-99)
[2016-08-11 07:33] LABS: ABG PH 7.35 (7.35-7.45)
[2016-08-11 07:34] LABS: ABG Base Excess 2.4 mmol/L; ABG HCO3 28 mmol/L (21-25); ABG PCO2 51 mmHg (35-45); ABG PO2 128 mmHg (83-108); ABG TCO2 29 mmol/L (19-24)
[2016-08-11 07:42] LABS: Glucose,Whole Blood 114 mg/dL (75-99)
--- NOTE | 2016-08-11 07:46 | XR ---
EXAMINATION TYPE: XR chest 1V portable DATE OF EXAM: 08/11/2016 6:53 AM COMPARISON: 08/10/2016 HISTORY: Post cardiac surgery TECHNIQUE: Single frontal view of the chest is obtained. FINDINGS: ET and NG tube stable. Surgical changes, Truxton-Cortes catheter, bilateral chest tubes. No sizable pneumothorax. Small bilateral effusion and basilar consolidation noted. IMPRESSION: 1. Stable chest x-ray demonstrating postoperative changes with bilateral infiltrate or postoperative atelectasis and small effusions.
--- NOTE | 2016-08-11 07:53 | OP ---
DATE OF SERVICE: 08/10/2016 SURGEON: Candido Matos MD DESCRIPTION OF PROCEDURE: Continuing surgery report on Beto Goodman. (please see first part separately) ADDENDUM: That first distal anastomosis was hemostatic and there was good flow in the vein. The vein was cut to length. The second distal anastomosis was between another segment of reverse saphenous vein graft and the first diagonal artery before it bifurcated and the arteriotomy went through a focal proximal plaque intentionally and the lumen was around 2 mm in diameter and the anastomosis was completed using Prolene 7-0 in continuous fashion. There was adequate flow and this was also hemostatic. The third and last distal anastomosis was between the left internal mammary artery, which was around 1.5 mm in diameter and thin-walled and the distal third of the left anterior descending artery, which was also around 1.5 mm in diameter, thin-walled, using Prolene 7-0 in continuous fashion. Heel and toe were probed before completion. The mammary pedicle was affixed to the epicardium with 3 Prolene 6-0 sutures. Rewarming was started and 2 buttons of 4 mm each were punched out of the proximal ascending aorta and the 2 vein grafts were anastomosed proximally using Prolene 6-0 in continuous fashion. The warm blood was given as we were constructed the last proximal anastomosis and we established flow through the mammary artery. Once this was done, patient was given lidocaine and magnesium and we unclamped the aorta. Patient regained spontaneous sinus rhythm without the need of the fibrillation. One bipolar ventricular pacing wire was driven via the inferior aspect of the right ventricle. After a period of reperfusion and after ensuring that there was adequate hemostasis at the level of the distal and proximal anastomosis, we were able to wean off cardiopulmonary bypass with Primacor at 0.375 mcg/kg per minute, which was started at the beginning of the case and low-dose Levophed. Graft flow measurements revealed patent flow, revealed excellent flow spirometer. Test dose and full dose protamine was given and decannulation proceeded. The venous cannulation site required 2 pledgeted Prolene sutures. The JOVANA had showed slightly improved left ventricular function and slightly improved mitral valve regurgitation that at this point, was around mild rather than moderate. A deep groove was made in the left pleural pericardial fat to accommodate the mammary artery medial to the lung and away from the posterior sternal table. I went ahead and placed 2 substernal chest tubes and closed pericardial fat and mediastinal fat to be able to cover the heart and cover most of the lungs that were hyperinflated. Redo surgery would be extremely hard in this patient. After ensuring adequate hemostasis and hemodynamics and after correct sponge, instrument and needle count, the sternum was approximated using 6 [id number] [place] cable after interposing fibrillar between the sternal edges. Thorough irrigation with cefazolin followed. The rest of the closure proceeded in layers. Skin glue was applied. Patient did not receive any blood bank product but received 500 mL of Cell Saver blood. He was transferred to the ICU with cardiac index of 3.4, PA of 45/19, mean arterial pressure 90, heart rate of 70 with nonspecific changes in the ST segments. MTDD
[2016-08-11] MEDS ORDERED: fentaNYL (PF) 50 MCG/ML 2 ML AMP IV PRN ×2 (08:14→08:22)
[2016-08-11] MEDS ORDERED: fentaNYL (PF) 50 MCG/ML 5 ML AMP IVP PRN (08:14)
--- NOTE | 2016-08-11 08:19 | OP ---
DATE OF SERVICE: 08/10/2016 SURGEON: Candido Matos MD SPEECH CORRECTION CONSULTANT: Dakotah Ascencio NP and Sunil Irwin RN ( ) PREOPERATIVE DIAGNOSES: 1. 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 2. Hypertension. 3. Hyperlipidemia. 4. Tobacco abuse with severe emphysematous changes in both lungs. 5. Mild mitral valve regurgitation. POSTOPERATIVE DIAGNOSES: 1. 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 2. Hypertension. 3. Hyperlipidemia. 4. Tobacco abuse with severe emphysematous changes in both lungs. 5. Mild to moderate mitral valve regurgitation. OPERATION: 1. Triple coronary artery bypass grafting using the left internal mammary artery to the left anterior descending artery, reverse saphenous vein graft from the aorta to the diagonal artery, reverse saphenous vein graft from the aorta to the posterior descending artery. 2. Endoscopic harvesting of the left greater saphenous vein from groin to below-knee level. 3. Intraoperative transesophageal echocardiogram and epiaortic scanning. 4. Intraoperative graft flow measurements using the medicine machine. ANESTHESIA: ESTIMATED BLOOD LOSS: SPECIMENS REMOVED: COMPLICATIONS: OPERATIVE FINDINGS: INDICTIONS FOR THE PROCEDURE: Patient is a 55 years old gentleman with severe tobacco abuse history, hypertension, hyperlipidemia who underwent stenting for his RCA and circumflex system, around [address] elevation myocardial infarction at that point. Patient did not follow up since; however, has been taking his medication and is on chronic Plavix. He presented with chest pain over several weeks to several months with daily nitroglycerin usage and shortness breath with exertion. Work-up included a 2-D echo that showed severe left ventricular dysfunction and mild mitral valve regurgitation. Cardiac catheterization showed proximal LAD disease with severe disease of the diagonal artery that is essentially supplying the lateral wall, patent circumflex stent and system, moderate stenosis of the right coronary artery proximally and patent stent. Patient is brought in today for coronary artery bypass grafting to the diagonal artery LAD and right coronary system. We will be checking the mitral valve with JOVANA once under general anesthesia. Risks, benefits, and alternatives were discussed with him. He understood and agreed to proceed. Patient was seen by pulmonary and was given a couple of days of steroids and at this point, proceeding with recent Plavix intake and reasonable pulmonary status with no active wheezing. DESCRIPTION OF THE PROCEDURE: Patient had a right internal jugular Whiting-Cortes catheter and right radial arterial line placed in the preoperative holding area. He was brought to the operating room, where his PA pressure ended up being 50/25. Cardiac index of 2.3. He was brought to the operating room, where general endotracheal anesthesia was induced uneventfully. He received 2 grams of cefazolin intravenously. The Whitlock catheter was inserted. The chest, abdomen and both lower extremities were prepped and draped using ChloraPrep. Ioban was used to cover the skin. Transesophageal echocardiogram showed severe global hypokinesia and mild to moderate mitral valve regurgitation that was central with no obvious tethering of the posterior leaflet and that with a mean pressure around 95. The decision was made not to combine mitral repair. As mentioned the patient has no clinical history of heart failure. Midline sternotomy was performed and we had to use bone wax on the sternal edges in view of the Plavix intake. The right pleura was opened with the sternotomy and we drained with a 28 [place] chest tube. The right lung was hyperinflated and with obvious smoking changes. The left pleura was intentionally opened and after lifting the hemisternum to be able to harvest the left internal mammary artery, which was done in a somewhat skeletonized fashion. The left pleura was also drained with 28 [place] chest tube. In the same setting, the left greater saphenous vein was harvested endoscopically from groin to below-knee level after administration of 2500 units of heparin. The leg incisions were closed over a drain. The vein was of good quality, around 4 to 5 mm in diameter. The mammary artery was double clipped distally and transected, had an excellent pulsatile flow in it, was around 1.5 mm in diameter and this was done after initially administration of 5000 units of heparin. Mediastinal fat was transected between 2 ties and epiaortic scanning revealed normal ascending aorta. Pericardium was opened in an inverted T fashion and pericardial cradle was created. Findings included a short posterior aorta soft and in a large heart with again hyperinflated lungs. The LAD was an intramyocardial in its distal third. The right coronary artery had disease up to its bifurcation and there was old infarct in thinning changes in the distal anteroapical and anterolateral wall. After systemic heparinization and placement of respective pursestrings, aortic cannulation with a 21 [place] soft flow cannula and venous cannulation via the right atrial appendage with a 29/37 dual stage venous cannula was performed. Antegrade as well as retrograde cardioplegia catheters were placed. Cardiopulmonary bypass was initiated after adequate ACT and with the heart warm and empty, we looked at the targets. It appeared that the posterior descending artery proximally was thin-walled and good targets for bypass. The diagonal artery just before its bifurcation was soft but had proximal plaque at that level. The LAD as it emerged from an intramyocardial course distal third was the site for bypass. During 70 minutes of aortic clamping myocardial protection was achieved with an initial dose of 1 liter of antegrade cold blood cardioplegia followed by 500 mL of retrograde cold blood cardioplegia. All subsequent doses were given retrograde at 15 minutes interval. The first distal anastomosis was between the reverse segment of vein graft and the proximal posterior descending artery, which was thin-walled, was opened, was around 1.5 mm in diameter, using Prolene 7-0 in continuous fashion. ................................................................................ ....................... ................................................................................ .............................................................. PLEASE SEE ADDENDUM FOR REST OF SURGICAL REPORT MTDD
[2016-08-11 08:27] LABS: Glucose,Whole Blood 113 mg/dL (75-99)
[2016-08-11] MEDS: ceFAZolin 2 GM in SODIUM CHLORIDE 0.9% 100 ML IVPB SCH ×2 (08:55→16:20)
[2016-08-11] MEDS: methylPREDNISolone SOD SUCCI 40 MG/ML 1 ML VIAL IV SCH ×3 (08:57→23:48)
[2016-08-11] MEDS: ASPIRIN 325 MG TAB PO SCH (08:58)
[2016-08-11] MEDS: CLOPIDOGREL 75 MG TAB PO SCH (08:59)
[2016-08-11] MEDS: ATORVASTATIN 40 MG TAB PO SCH (08:59)
[2016-08-11] MEDS: MUPIROCIN 2% OINT 22 GM TUBE NASAL SCH ×2 (08:59→21:37)
[2016-08-11] MEDS ORDERED: PANTOPRAZOLE 40 MG/10 ML VIAL IVP SCH (09:00)
[2016-08-11 09:08] LABS: Glucose,Whole Blood 126 mg/dL (75-99)
[2016-08-11] MEDS ORDERED: PROPOFOL 50 ML IV ONE (09:56)
[2016-08-11] MEDS ORDERED: LORazepam 2 MG/ML SYRINGE ONE (09:57)
[2016-08-11] MEDS: DEXMEDETOMIDINE 400 MCG in SODIUM CHLORIDE 0.9% 100 ML IV SCH ×2 (10:00→16:19)
[2016-08-11] MEDS ORDERED: fentaNYL (PF) 50 MCG/ML 2 ML AMP IV STA (10:06)
[2016-08-11 10:09] LABS: Glucose,Whole Blood 107 mg/dL (75-99)
[2016-08-11 10:45] LABS: Glucose,Whole Blood 125 mg/dL (75-99)
[2016-08-11] MEDS: METOPROLOL TARTRATE 12.5 MG TAB PO SCH ×2 (10:54→20:52)
[2016-08-11] MEDS: ALBUMIN HUMAN 5% 250 ML in EMPTY BAG 1 BAG IVPB PRN (10:57)
--- NOTE | 2016-08-11 11:09 | P.PN ---
Subjective Principal diagnosis: CAD Patient seen and examined in ICU with nursing staff at bedside. Patient was weaned off of propofol and is currently on Precedex. The patient is extremely combative and is unable to be verbally reoriented. Multiple nurses in the room to help calm the patient. Patient given Ativan, fentanyl, propofol. Patient is now adequately sedated. Levophed is being titrated to maintain adequate MAP. Ventilator FiO2 has been weaned down to 40%. Patient is currently on PEEP of 10. This will be titrated to 5. Repeat ABG in 1 hour. Objective - Vital Signs Vital signs: Vital Signs Temp 98.6 F 08/11/16 07:30 Pulse 80 08/11/16 10:45 Resp 16 08/11/16 07:30 BP 107/59 08/11/16 10:45 Pulse Ox 96 08/11/16 10:45 Intake & Output 08/10/16 08/11/16 08/11/16 18:59 06:59 18:59 Intake Total 33 2309.299 441.6 Output Total 2105 3189 272 Balance -2072 -879.701 169.6 Weight 85.2 kg 93.9 kg Intake: IV 33 400 60 Lactated Ringers 1,000 ml 50 @ 10 mls/hr IV .Q24H PRN Rx#:[id number] cardiac output injectate 350 60 Intake, IV Titration 1909.299 381.6 Amount ACETAMINOPHEN IV (For NPO 200 ) 1,000 mg In Empty Bag 1 bag @ 400 mls/hr IVPB Q6HR JULIANE Rx#:[id number] Albumin Human 5% 250 ml 250 In Empty Bag 1 bag @ 250 mls/hr IVPB Q1HR PRN Rx#: [id number] Cisatracurium 200 mg In 61.2 Sodium Chloride 0.9% 180 ml @ 2 MCG/KG/MIN 10.2 mls/hr IV .[id number] JULIANE Rx #:[id number] Insulin Regular 100 unit 13.074 In Sodium Chloride 0.9% 100 ml @ Per Protocol IV .Q0M JULIANE Rx#:[id number] Lactated Ringers 1,000 ml 550 50 @ 50 mls/hr IV .Q20H JULIANE Rx#:[id number] Lidocaine-D5w Pmx 2G/ 300 325 500Ml 2,000 mg In Dextrose/Water 1 500ml. bag @ 2 MG/MIN 30 mls/hr IV .[id number] JULIANE Rx#: [id number] Magnesium Sulfate-D5w Pmx 200 1 gm In Dextrose/Water 1 100ml.bag @ 100 mls/hr IVPB Q1H JULIANE Rx#: [id number] Milrinone-D5w Pmx 20 mg 61.3 5.1 In Dextrose/Water 1 100ml .bag @ 0.2 MCG/KG/MIN 5.1 mls/hr IV .[id number] JULIANE Rx#:[id number] Nitroglycerin-D5w Pmx 50 16.5 1.5 mg In Dextrose/Water 1 250ml.bag @ 5 MCG/MIN 1.5 mls/hr IV .Q24H JULIANE Rx#: [id number] Norepinephrine 16 mg In 30.204 0 Sodium Chloride 0.9% 250 ml @ Titrate IV .Q0M JULIANE Rx#:[id number] Propofol 500 mg In Empty 127.021 Bag 1 bag @ Titrate IV . Q0M JULIANE Rx#:[id number] ceFAZolin 2 gm In Sodium 100 Chloride 0.9% 100 ml @ 100 mls/hr IVPB Q8HR JULIANE Rx#:[id number] Output: Chest Tube Drainage 105 762 92 Chest Tube Left Lateral 10 91 12 Chest Chest Tube Mediastinal 80 584 70 Chest Tube Right Lateral 15 87 10 Chest Drainage 85 Left Calf 85 Urine 500 2342 180 Estimated Blood Loss 1500 Other: Voiding Method Toilet Indwelling Catheter # Voids 1 ABP, PAP, CO, CI - Last Documented Arterial Blood Pressure 127/70 Pulmonary Artery Pressure 36/22 Cardiac Output 7.5 Cardiac Index 3.8 - Exam Gen.: Patient was combative and subsequently re-sedated, he is currently now much more comfortable Cardiovascular: Regular rate and rhythm, S1/S2, intermittent PVCs Lungs: Diminished breath sounds bilaterally with scattered crackles Abdomen: Soft nontender nondistended positive bowel sounds Extremities: + edema - Labs CBC & Chem 7: 08/11/16 04:15 08/11/16 04:15 Labs: Abnormal Lab Results - Last 24 Hours (Table) 08/08/16 08/10/16 08/10/16 Range/Units 18:45 12:23 15:21 WBC (3.8-10.6) k/uL RBC (4.30-5.90) m/uL Hgb (13.0-17.5) gm/dL Hct (39.0-53.0) % Neutrophils # (1.3-7.7) k/uL Lymphocytes # (1.0-4.8) k/uL PT (9.0-12.0) sec APTT (22.0-30.0) sec ABG pH (7.35-7.45) ABG pCO2 (35-45) mmHg ABG pO2 (83-108) mmHg ABG HCO3 (21-25) mmol/L ABG Total CO2 (19-24) mmol/L ABG O2 Saturation (94-97) % Sodium (137-145) mmol/L Potassium (3.5-5.1) mmol/L BUN (9-20) mg/dL Glucose (74-99) mg/dL POC Glucose (mg/dL) 108 H 196 H (75-99) mg/dL Calcium (8.4-10.2) mg/dL Magnesium (1.6-2.3) mg/dL Alkaline Phosphatase (38-126) U/L Total Protein (6.3-8.2) g/dL Albumin (3.5-5.0) g/dL Crossmatch See Detail 08/10/16 08/10/16 08/10/16 Range/Units 15:46 16:18 17:08 WBC (3.8-10.6) k/uL RBC (4.30-5.90) m/uL Hgb (13.0-17.5) gm/dL Hct (39.0-53.0) % Neutrophils # (1.3-7.7) k/uL Lymphocytes # (1.0-4.8) k/uL PT (9.0-12.0) sec APTT (22.0-30.0) sec ABG pH (7.35-7.45) ABG pCO2 (35-45) mmHg ABG pO2 (83-108) mmHg ABG HCO3 (21-25) mmol/L ABG Total CO2 (19-24) mmol/L ABG O2 Saturation (94-97) % Sodium (137-145) mmol/L Potassium (3.5-5.1) mmol/L BUN (9-20) mg/dL Glucose (74-99) mg/dL POC Glucose (mg/dL) 202 H 202 H 126 H (75-99) mg/dL Calcium (8.4-10.2) mg/dL Magnesium (1.6-2.3) mg/dL Alkaline Phosphatase (38-126) U/L Total Protein (6.3-8.2) g/dL Albumin (3.5-5.0) g/dL Crossmatch 08/10/16 08/10/16 08/10/16 Range/Units 18:45 18:56 18:56 WBC 16.1 H (3.8-10.6) k/uL RBC 3.44 L (4.30-5.90) m/uL Hgb 10.9 L (13.0-17.5) gm/dL Hct 33.3 L (39.0-53.0) % Neutrophils # 12.9 H (1.3-7.7) k/uL Lymphocytes # (1.0-4.8) k/uL PT (9.0-12.0) sec APTT (22.0-30.0) sec ABG pH (7.35-7.45) ABG pCO2 (35-45) mmHg ABG pO2 (83-108) mmHg ABG HCO3 (21-25) mmol/L ABG Total CO2 (19-24) mmol/L ABG O2 Saturation (94-97) % Sodium 136 L (137-145) mmol/L Potassium (3.5-5.1) mmol/L BUN 22 H (9-20) mg/dL Glucose (74-99) mg/dL POC Glucose (mg/dL) 108 H (75-99) mg/dL Calcium 7.7 L (8.4-10.2) mg/dL Magnesium (1.6-2.3) mg/dL Alkaline Phosphatase 30 L (38-126) U/L Total Protein 4.6 L (6.3-8.2) g/dL Albumin 2.8 L (3.5-5.0) g/dL Crossmatch 08/10/16 08/10/16 08/10/16 Range/Units 18:56 19:14 19:46 WBC (3.8-10.6) k/uL RBC (4.30-5.90) m/uL Hgb (13.0-17.5) gm/dL Hct (39.0-53.0) % Neutrophils # (1.3-7.7) k/uL Lymphocytes # (1.0-4.8) k/uL PT 12.5 H (9.0-12.0) sec APTT (22.0-30.0) sec ABG pH 7.29 L (7.35-7.45) ABG pCO2 56 H (35-45) mmHg ABG pO2 (83-108) mmHg ABG HCO3 26 H (21-25) mmol/L ABG Total CO2 28 H (19-24) mmol/L ABG O2 Saturation (94-97) % Sodium (137-145) mmol/L Potassium (3.5-5.1) mmol/L BUN (9-20) mg/dL Glucose (74-99) mg/dL POC Glucose (mg/dL) 102 H (75-99) mg/dL Calcium (8.4-10.2) mg/dL Magnesium (1.6-2.3) mg/dL Alkaline Phosphatase (38-126) U/L Total Protein (6.3-8.2) g/dL Albumin (3.5-5.0) g/dL Crossmatch 08/10/16 08/10/16 08/10/16 Range/Units 20:07 20:22 20:53 WBC (3.8-10.6) k/uL RBC (4.30-5.90) m/uL Hgb (13.0-17.5) gm/dL Hct (39.0-53.0) % Neutrophils # (1.3-7.7) k/uL Lymphocytes # (1.0-4.8) k/uL PT (9.0-12.0) sec APTT (22.0-30.0) sec ABG pH 7.34 L (7.35-7.45) ABG pCO2 49 H (35-45) mmHg ABG pO2 82 L (83-108) mmHg ABG HCO3 (21-25) mmol/L ABG Total CO2 27 H (19-24) mmol/L ABG O2 Saturation (94-97) % Sodium (137-145) mmol/L Potassium (3.5-5.1) mmol/L BUN (9-20) mg/dL Glucose (74-99) mg/dL POC Glucose (mg/dL) 109 H 115 H (75-99) mg/dL Calcium (8.4-10.2) mg/dL Magnesium (1.6-2.3) mg/dL Alkaline Phosphatase (38-126) U/L Total Protein (6.3-8.2) g/dL Albumin (3.5-5.0) g/dL Crossmatch 08/10/16 08/10/16 08/10/16 Range/Units 21:43 22:03 22:35 WBC 16.7 H (3.8-10.6) k/uL RBC 3.34 L (4.30-5.90) m/uL Hgb 10.4 L (13.0-17.5) gm/dL Hct 32.2 L (39.0-53.0) % Neutrophils # 14.1 H (1.3-7.7) k/uL Lymphocytes # (1.0-4.8) k/uL PT (9.0-12.0) sec APTT (22.0-30.0) sec ABG pH (7.35-7.45) ABG pCO2 (35-45) mmHg ABG pO2 (83-108) mmHg ABG HCO3 (21-25) mmol/L ABG Total CO2 (19-24) mmol/L ABG O2 Saturation (94-97) % Sodium (137-145) mmol/L Potassium (3.5-5.1) mmol/L BUN (9-20) mg/dL Glucose (74-99) mg/dL POC Glucose (mg/dL) 140 H 130 H (75-99) mg/dL Calcium (8.4-10.2) mg/dL Magnesium (1.6-2.3) mg/dL Alkaline Phosphatase (38-126) U/L Total Protein (6.3-8.2) g/dL Albumin (3.5-5.0) g/dL Crossmatch 08/10/16 08/10/16 08/10/16 Range/Units 22:35 22:35 22:37 WBC (3.8-10.6) k/uL RBC (4.30-5.90) m/uL Hgb (13.0-17.5) gm/dL Hct (39.0-53.0) % Neutrophils # (1.3-7.7) k/uL Lymphocytes # (1.0-4.8) k/uL PT (9.0-12.0) sec APTT 30.2 H (22.0-30.0) sec ABG pH (7.35-7.45) ABG pCO2 (35-45) mmHg ABG pO2 (83-108) mmHg ABG HCO3 (21-25) mmol/L ABG Total CO2 (19-24) mmol/L ABG O2 Saturation (94-97) % Sodium 135 L (137-145) mmol/L Potassium (3.5-5.1) mmol/L BUN (9-20) mg/dL Glucose 144 H (74-99) mg/dL POC Glucose (mg/dL) 158 H (75-99) mg/dL Calcium 7.8 L (8.4-10.2) mg/dL Magnesium (1.6-2.3) mg/dL Alkaline Phosphatase (38-126) U/L Total Protein 4.9 L (6.3-8.2) g/dL Albumin 3.1 L (3.5-5.0) g/dL Crossmatch 08/10/16 08/11/16 08/11/16 Range/Units 23:18 00:13 01:07 WBC (3.8-10.6) k/uL RBC (4.30-5.90) m/uL Hgb (13.0-17.5) gm/dL Hct (39.0-53.0) % Neutrophils # (1.3-7.7) k/uL Lymphocytes # (1.0-4.8) k/uL PT (9.0-12.0) sec APTT (22.0-30.0) sec ABG pH (7.35-7.45) ABG pCO2 (35-45) mmHg ABG pO2 (83-108) mmHg ABG HCO3 (21-25) mmol/L ABG Total CO2 (19-24) mmol/L ABG O2 Saturation (94-97) % Sodium (137-145) mmol/L Potassium (3.5-5.1) mmol/L BUN (9-20) mg/dL Glucose (74-99) mg/dL POC Glucose (mg/dL) 150 H 140 H 148 H (75-99) mg/dL Calcium (8.4-10.2) mg/dL Magnesium (1.6-2.3) mg/dL Alkaline Phosphatase (38-126) U/L Total Protein (6.3-8.2) g/dL Albumin (3.5-5.0) g/dL Crossmatch 08/11/16 08/11/16 08/11/16 Range/Units 02: 03:10 04:14 WBC (3.8-10.6) k/uL RBC (4.30-5.90) m/uL Hgb (13.0-17.5) gm/dL Hct (39.0-53.0) % Neutrophils # (1.3-7.7) k/uL Lymphocytes # (1.0-4.8) k/uL PT (9.0-12.0) sec APTT (22.0-30.0) sec ABG pH (7.35-7.45) ABG pCO2 (35-45) mmHg ABG pO2 (83-108) mmHg ABG HCO3 (21-25) mmol/L ABG Total CO2 (19-24) mmol/L ABG O2 Saturation (94-97) % Sodium (137-145) mmol/L Potassium (3.5-5.1) mmol/L BUN (9-20) mg/dL Glucose (74-99) mg/dL POC Glucose (mg/dL) 153 H 143 H 129 H (75-99) mg/dL Calcium (8.4-10.2) mg/dL Magnesium (1.6-2.3) mg/dL Alkaline Phosphatase (38-126) U/L Total Protein (6.3-8.2) g/dL Albumin (3.5-5.0) g/dL Crossmatch 08/11/16 08/11/16 08/11/16 Range/Units 04:15 04:15 05:11 WBC 13.5 H (3.8-10.6) k/uL RBC 3.45 L (4.30-5.90) m/uL Hgb 10.8 L (13.0-17.5) gm/dL Hct 33.6 L (39.0-53.0) % Neutrophils # 11.7 H (1.3-7.7) k/uL Lymphocytes # 0.9 L (1.0-4.8) k/uL PT (9.0-12.0) sec APTT (22.0-30.0) sec ABG pH (7.35-7.45) ABG pCO2 (35-45) mmHg ABG pO2 (83-108) mmHg ABG HCO3 (21-25) mmol/L ABG Total CO2 (19-24) mmol/L ABG O2 Saturation (94-97) % Sodium (137-145) mmol/L Potassium 5.4 H (3.5-5.1) mmol/L BUN (9-20) mg/dL Glucose 129 H (74-99) mg/dL POC Glucose (mg/dL) 133 H (75-99) mg/dL Calcium 7.9 L (8.4-10.2) mg/dL Magnesium 2.5 H (1.6-2.3) mg/dL Alkaline Phosphatase 36 L (38-126) U/L Total Protein 5.0 L (6.3-8.2) g/dL Albumin 3.2 L (3.5-5.0) g/dL Crossmatch 08/11/16 08/11/16 08/11/16 Range/Units 06:13 07:20 07:22 WBC (3.8-10.6) k/uL RBC (4.30-5.90) m/uL Hgb (13.0-17.5) gm/dL Hct (39.0-53.0) % Neutrophils # (1.3-7.7) k/uL Lymphocytes # (1.0-4.8) k/uL PT (9.0-12.0) sec APTT (22.0-30.0) sec ABG pH (7.35-7.45) ABG pCO2 51 H (35-45) mmHg ABG pO2 128 H (83-108) mmHg ABG HCO3 28 H (21-25) mmol/L ABG Total CO2 29 H (19-24) mmol/L ABG O2 Saturation 99.0 H (94-97) % Sodium (137-145) mmol/L Potassium (3.5-5.1) mmol/L BUN (9-20) mg/dL Glucose (74-99) mg/dL POC Glucose (mg/dL) 138 H 114 H (75-99) mg/dL Calcium (8.4-10.2) mg/dL Magnesium (1.6-2.3) mg/dL Alkaline Phosphatase (38-126) U/L Total Protein (6.3-8.2) g/dL Albumin (3.5-5.0) g/dL Crossmatch 08/11/16 08/11/16 08/11/16 Range/Units 08:07 08:49 09:49 WBC (3.8-10.6) k/uL RBC (4.30-5.90) m/uL Hgb (13.0-17.5) gm/dL Hct (39.0-53.0) % Neutrophils # (1.3-7.7) k/uL Lymphocytes # (1.0-4.8) k/uL PT (9.0-12.0) sec APTT (22.0-30.0) sec ABG pH (7.35-7.45) ABG pCO2 (35-45) mmHg ABG pO2 (83-108) mmHg ABG HCO3 (21-25) mmol/L ABG Total CO2 (19-24) mmol/L ABG O2 Saturation (94-97) % Sodium (137-145) mmol/L Potassium (3.5-5.1) mmol/L BUN (9-20) mg/dL Glucose (74-99) mg/dL POC Glucose (mg/dL) 113 H 126 H 107 H (75-99) mg/dL Calcium (8.4-10.2) mg/dL Magnesium (1.6-2.3) mg/dL Alkaline Phosphatase (38-126) U/L Total Protein (6.3-8.2) g/dL Albumin (3.5-5.0) g/dL Crossmatch 08/11/16 Range/Units 10:40 WBC (3.8-10.6) k/uL RBC (4.30-5.90) m/uL Hgb (13.0-17.5) gm/dL Hct (39.0-53.0) % Neutrophils # (1.3-7.7) k/uL Lymphocytes # (1.0-4.8) k/uL PT (9.0-12.0) sec APTT (22.0-30.0) sec ABG pH (7.35-7.45) ABG pCO2 (35-45) mmHg ABG pO2 (83-108) mmHg ABG HCO3 (21-25) mmol/L ABG Total CO2 (19-24) mmol/L ABG O2 Saturation (94-97) % Sodium (137-145) mmol/L Potassium (3.5-5.1) mmol/L BUN (9-20) mg/dL Glucose (74-99) mg/dL POC Glucose (mg/dL) 125 H (75-99) mg/dL Calcium (8.4-10.2) mg/dL Magnesium (1.6-2.3) mg/dL Alkaline Phosphatase (38-126) U/L Total Protein (6.3-8.2) g/dL Albumin (3.5-5.0) g/dL Crossmatch Microbiology - Last 24 Hours (Table) 08/09/16 04:18 Urine Culture - Final Urine,Voided 08/08/16 18:30 Nasal Screen MRSA/MSSA ([facility]) - Final Nasal Swab Assessment and Plan Plan: Acute exacerbation of COPD Tracheobronchitis Active tobacco abuse Emphysema Coronary artery disease s/p CABG NSTEMI Obesity Hypertension Dyslipidemia History of prior [place] Maintain saturation greater than equal to 88% Bronchodilators and Pulmicort Solu-Medrol 30mg Q8 hours Continue Singulair Hemodynamics per CVTS Will repeat ABG in 1 hour with decreased PEEP at 5 Hopeful for extubation later today Pepcid Smoking cessation is highly recommended Incentive spirometry and pulmonary hygiene
--- NOTE | 2016-08-11 11:25 | P.PN ---
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 Hypertension. Hyperlipidemia. Tobacco abuse with severe emphysematous changes in both lungs. Mild mitral valve regurgitation. POD #1 triple coronary artery bypass grafting using the left internal mammary artery to the left anterior descending artery, reverse saphenous vein graft from the aorta to the diagonal artery, reverse saphenous vein graft from the aorta to the posterior descending artery. Endoscopic harvesting of the left greater saphenous vein from groin to below knee level. Intraoperative transesophageal echocardiogram and epi-aortic scanning. Intraoperative graft flow measurements. Patient sedated on the ventilator. Paralytic on board this morning. Objective - Vital Signs Vital signs: Vital Signs Temp 98.6 F 08/11/16 07:30 Pulse 80 08/11/16 10:45 Resp 16 08/11/16 07:30 BP 107/59 08/11/16 10:45 Pulse Ox 96 08/11/16 10:45 Intake & Output 08/10/16 08/11/16 08/11/16 18:59 06:59 18:59 Intake Total 33 2309.299 730.713 Output Total 2105 3189 717 Balance -2072 -879.701 13.713 Weight 85.2 kg 93.9 kg Intake: IV 33 400 120 Lactated Ringers 1,000 ml 50 @ 10 mls/hr IV .Q24H PRN Rx#:[id number] cardiac output injectate 350 120 Intake, IV Titration 1909.299 610.713 Amount ACETAMINOPHEN IV (For NPO 200 ) 1,000 mg In Empty Bag 1 bag @ 400 mls/hr IVPB Q6HR [facility] Rx#:[id number] Albumin Human 5% 250 ml 250 In Empty Bag 1 bag @ 250 mls/hr IVPB Q1HR PRN Rx#: [id number] Cisatracurium 200 mg In 61.2 47.175 Sodium Chloride 0.9% 180 ml @ 2 MCG/KG/MIN 10.2 mls/hr IV .[id number] [facility] Rx #:[id number] Insulin Regular 100 unit 13.074 14.238 In Sodium Chloride 0.9% 100 ml @ Per Protocol IV .Q0M [facility] Rx#:[id number] Lactated Ringers 1,000 ml 550 50 @ 50 mls/hr IV .Q20H [facility] Rx#:[id number] Lidocaine-D5w Pmx 2G/ 300 365.75 500Ml 2,000 mg In Dextrose/Water 1 500ml. bag @ 2 MG/MIN 30 mls/hr IV .[id number] [facility] Rx#: [id number] Magnesium Sulfate-D5w Pmx 200 1 gm In Dextrose/Water 1 100ml.bag @ 100 mls/hr IVPB Q1H [facility] Rx#: [id number] Milrinone-D5w Pmx 20 mg 61.3 49.47 In Dextrose/Water 1 100ml .bag @ 0.2 MCG/KG/MIN 5.1 mls/hr IV .[id number] [facility] Rx#:[id number] Nitroglycerin-D5w Pmx 50 16.5 1.5 mg In Dextrose/Water 1 250ml.bag @ 5 MCG/MIN 1.5 mls/hr IV .Q24H [facility] Rx#: [id number] Norepinephrine 16 mg In 30.204 32.580 Sodium Chloride 0.9% 250 ml @ Titrate IV .Q0M [facility] Rx#:[id number] Propofol 50 ml As IV .STK 50 -[facility] Rx#:[id number] Propofol 500 mg In Empty 127.021 Bag 1 bag @ Titrate IV . Q0M [facility] Rx#:[id number] ceFAZolin 2 gm In Sodium 100 Chloride 0.9% 100 ml @ 100 mls/hr IVPB Q8HR [facility] Rx#:[id number] Output: Chest Tube Drainage 105 762 182 Chest Tube Left Lateral 10 91 22 Chest Chest Tube Mediastinal 80 584 150 Chest Tube Right Lateral 15 87 10 Chest Drainage 85 Left Calf 85 Urine 500 2342 535 Estimated Blood Loss 1500 Other: Voiding Method Toilet Indwelling Catheter # Voids 1 ABP, PAP, CO, CI - Last Documented Arterial Blood Pressure 127/70 Pulmonary Artery Pressure 36/22 Cardiac Output 7.5 Cardiac Index 3.8 - Constitutional General appearance: Present: no acute distress - Respiratory Details: Lungs sounds very diminished. Respirations even, nonlabored, maintained on mechanical ventilation: FiO2 60% weaned down to 40%, PEEP 10. Left pleural chest tube to -20 cm wall suction, draining serosanguineous fluid, approximately 20 mL in the last 8 hours, 100 mL since surgery. Right pleural chest tube to -20 cm wall suction, draining serous and was fluid, approximately 10 mL in the last 8 hours, 55 mL since surgery. Mediastinal chest tube to -20 cm wall suction, draining serosanguineous fluid, 220 mL in the last 8 hours, 600 mL since surgery. No air leak present. - Cardiovascular Details: S1, S2 present. Regular to tachycardia rate, regular rhythm. Normal some sinus rhythm to sinus tach on telemetry with occasional PVCs. Chest stable. Teds, SCDs present. Trace lower extremity edema present. - Gastrointestinal Gastrointestinal Comment(s): Abdomen soft, nondistended. Hypoactive bowel sounds 4 quadrants. OG tube to low intermittent suction with what appears to be brown liquid drainage. - Genitourinary Genitourinary Comment(s): Whitlock present draining clear, yellow urine. Approximately 65-350 mL per hour. - Integumentary Integumentary Comment(s): Anterior chest covered with dry intact dressing. Left lower extremity EVH site well approximated with SOSA drain with minimal serosanguineous drainage. - Musculoskeletal Musculoskeletal Comment(s): Patient was on paralytic this morning, currently on, with full strength 4 quadrants. - Psychiatric Psychiatric Comment(s): Off sedation patient is highly anxious, sitting straight up in bed, and very agitated. - Allied health notes Allied health notes reviewed: nursing - Labs CBC & Chem 7: 08/11/16 04:15 08/11/16 04:15 Labs: Abnormal Lab Results - Last 24 Hours (Table) 08/08/16 08/10/16 08/10/16 Range/Units 18:45 12:23 15:21 WBC (3.8-10.6) k/uL RBC (4.30-5.90) m/uL Hgb (13.0-17.5) gm/dL Hct (39.0-53.0) % Neutrophils # (1.3-7.7) k/uL Lymphocytes # (1.0-4.8) k/uL PT (9.0-12.0) sec APTT (22.0-30.0) sec ABG pH (7.35-7.45) ABG pCO2 (35-45) mmHg ABG pO2 (83-108) mmHg ABG HCO3 (21-25) mmol/L ABG Total CO2 (19-24) mmol/L ABG O2 Saturation (94-97) % Sodium (137-145) mmol/L Potassium (3.5-5.1) mmol/L BUN (9-20) mg/dL Glucose (74-99) mg/dL POC Glucose (mg/dL) 108 H 196 H (75-99) mg/dL Calcium (8.4-10.2) mg/dL Magnesium (1.6-2.3) mg/dL Alkaline Phosphatase (38-126) U/L Total Protein (6.3-8.2) g/dL Albumin (3.5-5.0) g/dL Crossmatch See Detail 08/10/16 08/10/16 08/10/16 Range/Units 15:46 16:18 17:08 WBC (3.8-10.6) k/uL RBC (4.30-5.90) m/uL Hgb (13.0-17.5) gm/dL Hct (39.0-53.0) % Neutrophils # (1.3-7.7) k/uL Lymphocytes # (1.0-4.8) k/uL PT (9.0-12.0) sec APTT (22.0-30.0) sec ABG pH (7.35-7.45) ABG pCO2 (35-45) mmHg ABG pO2 (83-108) mmHg ABG HCO3 (21-25) mmol/L ABG Total CO2 (19-24) mmol/L ABG O2 Saturation (94-97) % Sodium (137-145) mmol/L Potassium (3.5-5.1) mmol/L BUN (9-20) mg/dL Glucose (74-99) mg/dL POC Glucose (mg/dL) 202 H 202 H 126 H (75-99) mg/dL Calcium (8.4-10.2) mg/dL Magnesium (1.6-2.3) mg/dL Alkaline Phosphatase (38-126) U/L Total Protein (6.3-8.2) g/dL Albumin (3.5-5.0) g/dL Crossmatch 08/10/16 08/10/16 08/10/16 Range/Units 18:45 18:56 18:56 WBC 16.1 H (3.8-10.6) k/uL RBC 3.44 L (4.30-5.90) m/uL Hgb 10.9 L (13.0-17.5) gm/dL Hct 33.3 L (39.0-53.0) % Neutrophils # 12.9 H (1.3-7.7) k/uL Lymphocytes # (1.0-4.8) k/uL PT (9.0-12.0) sec APTT (22.0-30.0) sec ABG pH (7.35-7.45) ABG pCO2 (35-45) mmHg ABG pO2 (83-108) mmHg ABG HCO3 (21-25) mmol/L ABG Total CO2 (19-24) mmol/L ABG O2 Saturation (94-97) % Sodium 136 L (137-145) mmol/L Potassium (3.5-5.1) mmol/L BUN 22 H (9-20) mg/dL Glucose (74-99) mg/dL POC Glucose (mg/dL) 108 H (75-99) mg/dL Calcium 7.7 L (8.4-10.2) mg/dL Magnesium (1.6-2.3) mg/dL Alkaline Phosphatase 30 L (38-126) U/L Total Protein 4.6 L (6.3-8.2) g/dL Albumin 2.8 L (3.5-5.0) g/dL Crossmatch 08/10/16 08/10/16 08/10/16 Range/Units 18:56 19:14 19:46 WBC (3.8-10.6) k/uL RBC (4.30-5.90) m/uL Hgb (13.0-17.5) gm/dL Hct (39.0-53.0) % Neutrophils # (1.3-7.7) k/uL Lymphocytes # (1.0-4.8) k/uL PT 12.5 H (9.0-12.0) sec APTT (22.0-30.0) sec ABG pH 7.29 L (7.35-7.45) ABG pCO2 56 H (35-45) mmHg ABG pO2 (83-108) mmHg ABG HCO3 26 H (21-25) mmol/L ABG Total CO2 28 H (19-24) mmol/L ABG O2 Saturation (94-97) % Sodium (137-145) mmol/L Potassium (3.5-5.1) mmol/L BUN (9-20) mg/dL Glucose (74-99) mg/dL POC Glucose (mg/dL) 102 H (75-99) mg/dL Calcium (8.4-10.2) mg/dL Magnesium (1.6-2.3) mg/dL Alkaline Phosphatase (38-126) U/L Total Protein (6.3-8.2) g/dL Albumin (3.5-5.0) g/dL Crossmatch 08/10/16 08/10/16 08/10/16 Range/Units 20:07 20:22 20:53 WBC (3.8-10.6) k/uL RBC (4.30-5.90) m/uL Hgb (13.0-17.5) gm/dL Hct (39.0-53.0) % Neutrophils # (1.3-7.7) k/uL Lymphocytes # (1.0-4.8) k/uL PT (9.0-12.0) sec APTT (22.0-30.0) sec ABG pH 7.34 L (7.35-7.45) ABG pCO2 49 H (35-45) mmHg ABG pO2 82 L (83-108) mmHg ABG HCO3 (21-25) mmol/L ABG Total CO2 27 H (19-24) mmol/L ABG O2 Saturation (94-97) % Sodium (137-145) mmol/L Potassium (3.5-5.1) mmol/L BUN (9-20) mg/dL Glucose (74-99) mg/dL POC Glucose (mg/dL) 109 H 115 H (75-99) mg/dL Calcium (8.4-10.2) mg/dL Magnesium (1.6-2.3) mg/dL Alkaline Phosphatase (38-126) U/L Total Protein (6.3-8.2) g/dL Albumin (3.5-5.0) g/dL Crossmatch 08/10/16 08/10/16 08/10/16 Range/Units 21:43 22:03 22:35 WBC 16.7 H (3.8-10.6) k/uL RBC 3.34 L (4.30-5.90) m/uL Hgb 10.4 L (13.0-17.5) gm/dL Hct 32.2 L (39.0-53.0) % Neutrophils # 14.1 H (1.3-7.7) k/uL Lymphocytes # (1.0-4.8) k/uL PT (9.0-12.0) sec APTT (22.0-30.0) sec ABG pH (7.35-7.45) ABG pCO2 (35-45) mmHg ABG pO2 (83-108) mmHg ABG HCO3 (21-25) mmol/L ABG Total CO2 (19-24) mmol/L ABG O2 Saturation (94-97) % Sodium (137-145) mmol/L Potassium (3.5-5.1) mmol/L BUN (9-20) mg/dL Glucose (74-99) mg/dL POC Glucose (mg/dL) 140 H 130 H (75-99) mg/dL Calcium (8.4-10.2) mg/dL Magnesium (1.6-2.3) mg/dL Alkaline Phosphatase (38-126) U/L Total Protein (6.3-8.2) g/dL Albumin (3.5-5.0) g/dL Crossmatch 08/10/16 08/10/16 08/10/16 Range/Units 22:35 22:35 22:37 WBC (3.8-10.6) k/uL RBC (4.30-5.90) m/uL Hgb (13.0-17.5) gm/dL Hct (39.0-53.0) % Neutrophils # (1.3-7.7) k/uL Lymphocytes # (1.0-4.8) k/uL PT (9.0-12.0) sec APTT 30.2 H (22.0-30.0) sec ABG pH (7.35-7.45) ABG pCO2 (35-45) mmHg ABG pO2 (83-108) mmHg ABG HCO3 (21-25) mmol/L ABG Total CO2 (19-24) mmol/L ABG O2 Saturation (94-97) % Sodium 135 L (137-145) mmol/L Potassium (3.5-5.1) mmol/L BUN (9-20) mg/dL Glucose 144 H (74-99) mg/dL POC Glucose (mg/dL) 158 H (75-99) mg/dL Calcium 7.8 L (8.4-10.2) mg/dL Magnesium (1.6-2.3) mg/dL Alkaline Phosphatase (38-126) U/L Total Protein 4.9 L (6.3-8.2) g/dL Albumin 3.1 L (3.5-5.0) g/dL Crossmatch 08/10/16 08/11/16 08/11/16 Range/Units 23:18 00:13 01:07 WBC (3.8-10.6) k/uL RBC (4.30-5.90) m/uL Hgb (13.0-17.5) gm/dL Hct (39.0-53.0) % Neutrophils # (1.3-7.7) k/uL Lymphocytes # (1.0-4.8) k/uL PT (9.0-12.0) sec APTT (22.0-30.0) sec ABG pH (7.35-7.45) ABG pCO2 (35-45) mmHg ABG pO2 (83-108) mmHg ABG HCO3 (21-25) mmol/L ABG Total CO2 (19-24) mmol/L ABG O2 Saturation (94-97) % Sodium (137-145) mmol/L Potassium (3.5-5.1) mmol/L BUN (9-20) mg/dL Glucose (74-99) mg/dL POC Glucose (mg/dL) 150 H 140 H 148 H (75-99) mg/dL Calcium (8.4-10.2) mg/dL Magnesium (1.6-2.3) mg/dL Alkaline Phosphatase (38-126) U/L Total Protein (6.3-8.2) g/dL Albumin (3.5-5.0) g/dL Crossmatch 08/11/16 08/11/16 08/11/16 Range/Units : 03:10 04:14 WBC (3.8-10.6) k/uL RBC (4.30-5.90) m/uL Hgb (13.0-17.5) gm/dL Hct (39.0-53.0) % Neutrophils # (1.3-7.7) k/uL Lymphocytes # (1.0-4.8) k/uL PT (9.0-12.0) sec APTT (22.0-30.0) sec ABG pH (7.35-7.45) ABG pCO2 (35-45) mmHg ABG pO2 (83-108) mmHg ABG HCO3 (21-25) mmol/L ABG Total CO2 (19-24) mmol/L ABG O2 Saturation (94-97) % Sodium (137-145) mmol/L Potassium (3.5-5.1) mmol/L BUN (9-20) mg/dL Glucose (74-99) mg/dL POC Glucose (mg/dL) 153 H 143 H 129 H (75-99) mg/dL Calcium (8.4-10.2) mg/dL Magnesium (1.6-2.3) mg/dL Alkaline Phosphatase (38-126) U/L Total Protein (6.3-8.2) g/dL Albumin (3.5-5.0) g/dL Crossmatch 08/11/16 08/11/16 08/11/16 Range/Units 04:15 04:15 05:11 WBC 13.5 H (3.8-10.6) k/uL RBC 3.45 L (4.30-5.90) m/uL Hgb 10.8 L (13.0-17.5) gm/dL Hct 33.6 L (39.0-53.0) % Neutrophils # 11.7 H (1.3-7.7) k/uL Lymphocytes # 0.9 L (1.0-4.8) k/uL PT (9.0-12.0) sec APTT (22.0-30.0) sec ABG pH (7.35-7.45) ABG pCO2 (35-45) mmHg ABG pO2 (83-108) mmHg ABG HCO3 (21-25) mmol/L ABG Total CO2 (19-24) mmol/L ABG O2 Saturation (94-97) % Sodium (137-145) mmol/L Potassium 5.4 H (3.5-5.1) mmol/L BUN (9-20) mg/dL Glucose 129 H (74-99) mg/dL POC Glucose (mg/dL) 133 H (75-99) mg/dL Calcium 7.9 L (8.4-10.2) mg/dL Magnesium 2.5 H (1.6-2.3) mg/dL Alkaline Phosphatase 36 L (38-126) U/L Total Protein 5.0 L (6.3-8.2) g/dL Albumin 3.2 L (3.5-5.0) g/dL Crossmatch 08/11/16 08/11/16 08/11/16 Range/Units 06:13 07:20 07:22 WBC (3.8-10.6) k/uL RBC (4.30-5.90) m/uL Hgb (13.0-17.5) gm/dL Hct (39.0-53.0) % Neutrophils # (1.3-7.7) k/uL Lymphocytes # (1.0-4.8) k/uL PT (9.0-12.0) sec APTT (22.0-30.0) sec ABG pH (7.35-7.45) ABG pCO2 51 H (35-45) mmHg ABG pO2 128 H (83-108) mmHg ABG HCO3 28 H (21-25) mmol/L ABG Total CO2 29 H (19-24) mmol/L ABG O2 Saturation 99.0 H (94-97) % Sodium (137-145) mmol/L Potassium (3.5-5.1) mmol/L BUN (9-20) mg/dL Glucose (74-99) mg/dL POC Glucose (mg/dL) 138 H 114 H (75-99) mg/dL Calcium (8.4-10.2) mg/dL Magnesium (1.6-2.3) mg/dL Alkaline Phosphatase (38-126) U/L Total Protein (6.3-8.2) g/dL Albumin (3.5-5.0) g/dL Crossmatch 08/11/16 08/11/16 08/11/16 Range/Units 08:07 08:49 09:49 WBC (3.8-10.6) k/uL RBC (4.30-5.90) m/uL Hgb (13.0-17.5) gm/dL Hct (39.0-53.0) % Neutrophils # (1.3-7.7) k/uL Lymphocytes # (1.0-4.8) k/uL PT (9.0-12.0) sec APTT (22.0-30.0) sec ABG pH (7.35-7.45) ABG pCO2 (35-45) mmHg ABG pO2 (83-108) mmHg ABG HCO3 (21-25) mmol/L ABG Total CO2 (19-24) mmol/L ABG O2 Saturation (94-97) % Sodium (137-145) mmol/L Potassium (3.5-5.1) mmol/L BUN (9-20) mg/dL Glucose (74-99) mg/dL POC Glucose (mg/dL) 113 H 126 H 107 H (75-99) mg/dL Calcium (8.4-10.2) mg/dL Magnesium (1.6-2.3) mg/dL Alkaline Phosphatase (38-126) U/L Total Protein (6.3-8.2) g/dL Albumin (3.5-5.0) g/dL Crossmatch 08/11/16 Range/Units 10:40 WBC (3.8-10.6) k/uL RBC (4.30-5.90) m/uL Hgb (13.0-17.5) gm/dL Hct (39.0-53.0) % Neutrophils # (1.3-7.7) k/uL Lymphocytes # (1.0-4.8) k/uL PT (9.0-12.0) sec APTT (22.0-30.0) sec ABG pH (7.35-7.45) ABG pCO2 (35-45) mmHg ABG pO2 (83-108) mmHg ABG HCO3 (21-25) mmol/L ABG Total CO2 (19-24) mmol/L ABG O2 Saturation (94-97) % Sodium (137-145) mmol/L Potassium (3.5-5.1) mmol/L BUN (9-20) mg/dL Glucose (74-99) mg/dL POC Glucose (mg/dL) 125 H (75-99) mg/dL Calcium (8.4-10.2) mg/dL Magnesium (1.6-2.3) mg/dL Alkaline Phosphatase (38-126) U/L Total Protein (6.3-8.2) g/dL Albumin (3.5-5.0) g/dL Crossmatch Microbiology - Last 24 Hours (Table) 08/09/16 04:18 Urine Culture - Final Urine,Voided 08/08/16 18:30 Nasal Screen MRSA/MSSA ([facility]AD[facility]) - Final Nasal Swab - Imaging and Cardiology Chest x-ray: report reviewed, image reviewed Assessment and Plan (1) Unstable angina pectoris Status: Acute (2) COPD (chronic obstructive pulmonary disease) Status: Acute (3) Hypertension Status: Acute (4) Hyperlipidemia Status: Acute Plan: 1. Continue ASA, statin, BB, heparin, Plavix. 2. Wean from ventilator as tolerated. 3. Continue lidocaine, nitro, Primacor drips 4. Titrate levo for mean arterial pressure greater than 65 mmHg. 5. DC propofol, add Precedex. DC Dilaudid, added fentanyl for pain 6. Monitor vital signs, I and O's, daily labs, daily x-rays. 7. Will need aggressive pain and anxiety control 8. Steroids per pulmonology. 9. GI/DVT prophylaxis 10. More recommendations as patient progresses. Time with Patient: Greater than 30
[2016-08-11 11:31] LABS: ABG PCO2 36 mmHg (35-45); ABG PH 7.48 (7.35-7.45)
[2016-08-11 11:32] LABS: ABG Base Excess 2.8 mmol/L; ABG HCO3 26 mmol/L (21-25); ABG PO2 113 mmHg (83-108); ABG TCO2 27 mmol/L (19-24)
--- NOTE | 2016-08-11 12:38 | CDI ---
In responding to this query, please exercise your independent professional judgment. The [facility] Coding Staff and Clinical Documentation Specialists appreciate your assistance in clarifying documentation, maintaining compliance with coding guidelines, accurately documenting patients condition and capturing severity of illness. The fact that a question is asked does not imply that any particular answer is desired or expected. Communication forms are a method of clarifying documentation and are not made part of the Legal Health Record. Thank you in advance for your clarification. Last Revision, April 2015 Nai Anthony [address] [place] [address] Documentation Clarification Form Date: 08/11/2016 12:24:00 PM From: Yessi Santos Admit Date: 08/07/2016 12:21:00 PM Patient Name: Beto Goodman Visit Number: [id number] Dr. Candido Matos and Ryann Bishop NP Conflicting documentation has been found in the medical record. On 08/08 Dr Matos documented 'NSTEMI and severe left ventricular dysfunction'. In the OP report on 08/10 Dr Matos documented 'double vessel cad w severe left ventricular dysfunction, status post prior PA'. In the progress note on 08/[address] Matos documented 'unstable angina pectoris'. History/Risk Factors: Prior PA CAD Hypertension Clinical Indicators: Card Cath showed progression of disease in rca and lad system per Dr Matos note on 08/08 Troponins: 0.028 - 0.048 - 0.022 Treatment: Triple vessel CABG In your opinion what is the most clinically appropriate diagnosis for this patient? Coronary Artery Disease with Unstable Angina Coronary Artery Disease without Unstable Angina Coronary Artery Disease with NSTEMI on this admission OTHER explanation of clinical findings Unable to determine (no explanation for clinical findings) Please document in your progress notes and discharge summary in order to capture severity of illness and risk of mortality. Include clinical findings that support your diagnosis. FYI: Press F11 to launch patient chart. Place X here if this finding has no clinical significance, is not applicable or if you are not able to provide any additional documentation. Coronary artery disease with NSTEMI on this admission MTDD
[2016-08-11] MEDS: LACTATED RINGERS 1,000 ML IV SCH ×2 (12:44→16:22)
[2016-08-11] MEDS: LIDOCAINE-D5W PMX 2G/500ML 2,000 MG in DEXTROSE/WATER 1 500ML.BAG IV SCH (12:44)
[2016-08-11 12:53] LABS: Glucose,Whole Blood 132 mg/dL (75-99)
--- NOTE | 2016-08-11 13:29 | PN ---
CHIEF COMPLAINT: Status post coronary artery bypass graft. HISTORY OF PRESENT ILLNESS: The gentleman has been a significant management problem during the night with ( ) and swings in his blood pressure and pulse. PHYSICAL EXAMINATION: Breath sounds are heard both sides of the chest and cardiac exam is unremarkable. IMPRESSION: 1. Status post coronary artery bypass graft. 2. Chronic obstructive pulmonary disease. PLAN: Continue to follow with Cardiology and Thoracic Surgery.
[2016-08-11 13:34] LABS: Glucose,Whole Blood 120 mg/dL (75-99)
[2016-08-11] MEDS: fentaNYL (PF) 50 MCG/ML 2 ML AMP IV PRN ×4 (13:47→23:48)
[2016-08-11] MEDS: LORazepam 2 MG/ML SYRINGE IV PRN (14:24)
[2016-08-11 14:39] LABS: Glucose,Whole Blood 102 mg/dL (75-99)
[2016-08-11] MEDS: KETOROLAC 30 MG/ML 1 ML VIAL IVP SCH ×2 (15:01→23:48)
[2016-08-11 15:15] LABS: Glucose,Whole Blood 113 mg/dL (75-99)
[2016-08-11] MEDS: CLEVIDIPINE BUTYRATE 25 MG in EMPTY BAG 1 BAG IV SCH (16:21)
[2016-08-11] MEDS: NITROGLYCERIN-D5W PMX 50 MG in DEXTROSE/WATER 1 250ML.BAG IV SCH (16:23)
[2016-08-11] MEDS: CISATRACURIUM 200 MG in SODIUM CHLORIDE 0.9% 180 ML IV SCH (16:23)
[2016-08-11] MEDS ORDERED: HYDROcodone/APAP 5-325MG 1 EACH TAB PO PRN (16:50)
[2016-08-11] MEDS ORDERED: IPRATROPIUM-ALBUTEROL 3 ML NEB INHALATION PRN (16:51)
[2016-08-11] MEDS ORDERED: BISACODYL 10 MG SUPP RECTAL PRN (16:51)
[2016-08-11] MEDS ORDERED: MAGNESIUM HYDROXIDE 2,400 MG/10 ML CUP PO PRN (16:51)
[2016-08-11 17:04] LABS: Glucose,Whole Blood 118 mg/dL (75-99)
--- NOTE | 2016-08-11 17:42 | PN ---
This patient is status post coronary artery bypass surgery. Patient had a JACKSON graft to the LAD and saphenous vein graft to the diagonal branch as well as PDA branch. The patient's course over the last 24 hours reviewed. The patient had a significant hemodynamic problem during the night with issues with hypertension and issues with the pain. The patient has been on multiple pain medication. He was extubated this morning. He had some problem with confusion and currently getting ( ) as well as Precedex. Patient is still requiring about 10 mcg of Levo. The patient is alert and awake. PHYSICAL EXAMINATION: At present reveals the patient's blood pressure to be 122/66 mm of mercury. HEART: S1 and S2 normal. Lungs reveal a few scattered wheezes. Chest x-ray does not show any significant failure. Patient's hemoglobin is 10.8. Arterial blood gases are satisfactory. Patient's creatinine is 0.7. FINAL IMPRESSION: This patient is status post coronary artery bypass surgery. Patient is still requiring inotropic support to maintain the blood pressure. Patient's creatinine and urine output remained stable. We will continue the current medications.
[2016-08-11 18:17] LABS: Basophils % (A) 0 %; CH 31.5; CHCM 33.2; Eosinophils # (A) 0.1 k/uL (0-0.7); Eosinophils % (A) 1 %; HCT 28.3 % (39.0-53.0); HDW 2.28; Luc # (Auto) 0.21; Luc % (Auto) 2; Lymphocytes # (A) 1.9 k/uL (1.0-4.8); Lymphocytes % (A) 14 %; MCH 31.4 pg (25.0-35.0); MCHC 32.9 g/dL (31.0-37.0); MCV 95.4 fL (80.0-100.0); Mean Platelet Volume 7.6; Monocytes # (A) 0.8 k/uL (0-1.0); Monocytes % (A) 6 %; Neutrophils # (A) 10.3 k/uL (1.3-7.7); Neutrophils % (A) 78 %; RBC 2.97 m/uL (4.30-5.90); RDW 13.5 % (11.5-15.5); WBC 13.3 k/uL (3.8-10.6)
[2016-08-11 18:21] LABS: Glucose,Whole Blood 129 mg/dL (75-99)
[2016-08-11 18:25] LABS: Anion Gap 6 mmol/L; Blood Urea Nitrogen 19 mg/dL (9-20); Calcium 8.3 mg/dL (8.4-10.2); Carbon Dioxide 29 mmol/L (22-30); Chloride 104 mmol/L (98-107); Glucose 119 mg/dL (74-99); HGB 9.3 gm/dL (13.0-17.5); Non-African American GFR(MDRD) >60 (>60 ml/min/1.73 sqM); Potassium 4.6 mmol/L (3.5-5.1); Sodium 139 mmol/L (137-145)
[2016-08-11 19:25] LABS: Glucose,Whole Blood 117 mg/dL (75-99)
[2016-08-11 20:18] LABS: Glucose,Whole Blood 120 mg/dL (75-99)
[2016-08-11] MEDS: QUEtiapine 25 MG TAB PO SCH (21:37)
[2016-08-11] MEDS: SENNOSIDES-DOCUSATE SODIUM 1 EACH TAB PO SCH (21:38)
[2016-08-11 22:30] LABS: Glucose,Whole Blood 130 mg/dL (75-99)
[2016-08-12] MEDS: MILRINONE-D5W PMX 20 MG in DEXTROSE/WATER 1 100ML.BAG IV SCH (00:03)
[2016-08-12] MEDS: HEPARIN SODIUM,PORCINE 5,000 UNIT/ML 1 ML VIAL SQ SCH ×3 (00:04→15:09)
[2016-08-12 00:14] LABS: Glucose,Whole Blood 113 mg/dL (75-99)
[2016-08-12] MEDS: NOREPINEPHRINE 16 MG in SODIUM CHLORIDE 0.9% 250 ML IV SCH (02:15)
[2016-08-12] MEDS: NITROGLYCERIN-D5W PMX 50 MG in DEXTROSE/WATER 1 250ML.BAG IV SCH (02:21)
[2016-08-12] MEDS: LIDOCAINE-D5W PMX 2G/500ML 2,000 MG in DEXTROSE/WATER 1 500ML.BAG IV SCH ×2 (02:21→23:03)
[2016-08-12] MEDS: fentaNYL (PF) 50 MCG/ML 2 ML AMP IV PRN ×4 (02:25→11:30)
[2016-08-12] MEDS: HYDROcodone/APAP 5-325MG 1 EACH TAB PO PRN ×5 (02:47→20:36)
[2016-08-12] MEDS: LORazepam 2 MG/ML SYRINGE IV PRN ×3 (02:49→20:40)
[2016-08-12 03:04] LABS: Glucose,Whole Blood 134 mg/dL (75-99)
[2016-08-12 03:48] LABS: Glucose,Whole Blood 139 mg/dL (75-99)
[2016-08-12] MEDS: KETOROLAC 30 MG/ML 1 ML VIAL IVP SCH ×3 (05:06→16:33)
[2016-08-12 05:15] LABS: Basophils % (A) 0 %; CH 31.3; CHCM 32.7; Eosinophils % (A) 0 %; HCT 27.6 % (39.0-53.0); HDW 2.23; Luc # (Auto) 0.19; Luc % (Auto) 2; Lymphocytes # (A) 1.2 k/uL (1.0-4.8); Lymphocytes % (A) 10 %; MCH 31.3 pg (25.0-35.0); MCHC 32.5 g/dL (31.0-37.0); MCV 96.3 fL (80.0-100.0); Mean Platelet Volume 7.6; Monocytes # (A) 0.7 k/uL (0-1.0); Monocytes % (A) 6 %; Neutrophils # (A) 9.8 k/uL (1.3-7.7); Neutrophils % (A) 82 %; RBC 2.86 m/uL (4.30-5.90); RDW 13.4 % (11.5-15.5); WBC 11.9 k/uL (3.8-10.6); WBC (Perox) 12.03
[2016-08-12 05:23] LABS: INR 1.1 (<1.1); Prothrombin Time 11.4 sec (9.0-12.0)
[2016-08-12 05:29] LABS: Ionized Calcium 4.9 mg/dL (4.5-5.3)
[2016-08-12 05:45] LABS: ALT 32 U/L (21-72); AST 28 U/L (17-59); Alkaline Phosphatase 37 U/L (38-126); Anion Gap 4 mmol/L; Blood Urea Nitrogen 21 mg/dL (9-20); Calcium 8.4 mg/dL (8.4-10.2); Carbon Dioxide 30 mmol/L (22-30); Chloride 104 mmol/L (98-107); Glucose 121 mg/dL (74-99); Magnesium 2.2 mg/dL (1.6-2.3); Non-African American GFR(MDRD) >60 (>60 ml/min/1.73 sqM); Potassium 4.6 mmol/L (3.5-5.1); Sodium 138 mmol/L (137-145); Total Bilirubin 0.5 mg/dL (0.2-1.3); Total Protein 4.6 g/dL (6.3-8.2)
--- NOTE | 2016-08-12 07:15 | XR ---
EXAMINATION TYPE: XR chest 1V portable DATE OF EXAM: 08/12/2016 6:40 AM COMPARISON: 08/11/2016 HISTORY: Postop cardiac surgery TECHNIQUE: Single frontal view of the chest is obtained. FINDINGS: ET and NG tube have been removed. Postsurgical change, mediastinal drain, [place] cathet er, and chest tubes are stable. Bilateral areas of infiltrate or atelectasis noted. Arthropathy of the shoulders noted. IMPRESSION: 1. Stable x-ray demonstrating postoperative atelectasis favored over infiltrate. Correlate clinically
[2016-08-12 08:03] LABS: Glucose,Whole Blood 122 mg/dL (75-99)
[2016-08-12] MEDS: SODIUM CHLORIDE 0.9% 1,000 ML IV SCH (08:36)
[2016-08-12] MEDS: ATORVASTATIN 40 MG TAB PO SCH (08:37)
[2016-08-12] MEDS: ASPIRIN 325 MG TAB PO SCH (08:37)
[2016-08-12] MEDS: methylPREDNISolone SOD SUCCI 40 MG/ML 1 ML VIAL IV SCH ×2 (08:37→20:36)
[2016-08-12] MEDS: CLOPIDOGREL 75 MG TAB PO SCH (08:38)
[2016-08-12] MEDS: MUPIROCIN 2% OINT 22 GM TUBE NASAL SCH ×2 (08:38→20:36)
[2016-08-12] MEDS: METOPROLOL TARTRATE 12.5 MG TAB PO SCH (08:38)
[2016-08-12] MEDS: QUEtiapine 25 MG TAB PO SCH ×2 (08:39→20:36)
[2016-08-12] MEDS: PANTOPRAZOLE 40 MG TABLET PO SCH (08:41)
[2016-08-12] MEDS: MORPHINE SULFATE 2 MG/ML SYRINGE IVP PRN ×3 (08:48→17:06)
[2016-08-12] MEDS ORDERED: METOPROLOL TARTRATE 25 MG TAB PO SCH (10:00)
[2016-08-12 10:18] LABS: Glucose,Whole Blood 102 mg/dL (75-99)
--- NOTE | 2016-08-12 11:04 | P.PN ---
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 Hypertension. Hyperlipidemia. Tobacco abuse with severe emphysematous changes in both lungs. Mild mitral valve regurgitation. POD #2 triple coronary artery bypass grafting using the left internal mammary artery to the left anterior descending artery, reverse saphenous vein graft from the aorta to the diagonal artery, reverse saphenous vein graft from the aorta to the posterior descending artery. Endoscopic harvesting of the left greater saphenous vein from groin to below knee level. Intraoperative transesophageal echocardiogram and epi-aortic scanning. Intraoperative graft flow measurements. Patient awake and alert, sitting up to bedside chair, no distress noted, is complaining of generalized pain rated 8 out of 10 on the pain scale. Vital Signs: Afebrile Vital Signs - 24 hr 08/11/16 08/11/16 08/11/16 07:30 07:45 08:00 Temperature 98.6 F Pulse Rate 109 H 117 H 95 Respiratory 16 16 Rate Blood Pressure 122/75 130/81 O2 Sat by Pulse 96 96 97 Oximetry 08/11/16 08/11/16 08/11/16 08:10 08:15 08:30 Temperature Pulse Rate 91 90 89 Respiratory Rate Blood Pressure 103/59 O2 Sat by Pulse 97 97 Oximetry 08/11/16 08/11/16 08/11/16 08:45 09:00 09:15 Temperature Pulse Rate 92 91 92 Respiratory Rate Blood Pressure 103/59 98/65 98/65 O2 Sat by Pulse 97 98 97 Oximetry 08/11/16 08/11/16 08/11/16 09:30 09:45 10:00 Temperature Pulse Rate 89 83 105 H Respiratory Rate Blood Pressure 113/70 113/70 113/70 O2 Sat by Pulse 97 95 89 L Oximetry 08/11/16 08/11/16 08/11/16 10:15 10:30 10:45 Temperature Pulse Rate 89 84 80 Respiratory Rate Blood Pressure 113/70 107/59 107/59 O2 Sat by Pulse 96 95 96 Oximetry 08/11/16 08/11/16 08/11/16 11:00 11:15 11:20 Temperature Pulse Rate 82 83 84 Respiratory Rate Blood Pressure 120/59 120/59 O2 Sat by Pulse 96 95 Oximetry 08/11/16 08/11/16 08/11/16 11:30 11:42 11:45 Temperature Pulse Rate 83 89 85 Respiratory Rate Blood Pressure 123/73 123/73 O2 Sat by Pulse 97 94 L Oximetry 08/11/16 08/11/16 08/11/16 12:00 12:15 12:30 Temperature Pulse Rate 99 90 96 Respiratory 16 Rate Blood Pressure 123/73 119/72 105/73 O2 Sat by Pulse 88 L 94 L 94 L Oximetry 08/11/16 08/11/16 08/11/16 12:41 12:45 13:00 Temperature Pulse Rate 92 93 Respiratory Rate Blood Pressure 109/62 112/61 O2 Sat by Pulse 94 L 94 L 95 Oximetry 08/11/16 08/11/16 08/11/16 13:15 13:30 13:45 Temperature Pulse Rate 93 86 85 Respiratory Rate Blood Pressure 107/64 109/72 122/66 O2 Sat by Pulse 94 L 94 L 98 Oximetry 08/11/16 08/11/16 08/11/16 14:00 14:15 14:30 Temperature Pulse Rate 83 89 89 Respiratory Rate Blood Pressure 118/72 117/61 125/62 O2 Sat by Pulse 95 92 L 95 Oximetry 08/11/16 08/11/16 08/11/16 14:45 15:00 15:15 Temperature Pulse Rate 95 90 78 Respiratory Rate Blood Pressure 111/74 113/68 123/67 O2 Sat by Pulse 95 92 L 96 Oximetry 08/11/16 08/11/16 08/11/16 15:20 15:29 15:30 Temperature Pulse Rate 84 88 90 Respiratory Rate Blood Pressure 89/55 O2 Sat by Pulse 94 L Oximetry 08/11/16 08/11/16 08/11/16 15:45 16:00 16:15 Temperature Pulse Rate 89 91 88 Respiratory 16 Rate Blood Pressure 77/46 108/60 107/62 O2 Sat by Pulse 91 L 94 L 96 Oximetry 08/11/16 08/11/16 08/11/16 16:30 16:45 16:46 Temperature Pulse Rate 91 85 Respiratory Rate Blood Pressure 106/68 101/68 O2 Sat by Pulse 95 95 97 Oximetry 08/11/16 08/11/16 08/11/16 17:00 17:15 17:30 Temperature Pulse Rate 89 88 94 Respiratory 14 18 Rate Blood Pressure 121/66 122/65 111/66 O2 Sat by Pulse 95 96 96 Oximetry 08/11/16 08/11/16 08/11/16 17:45 18:00 18:15 Temperature Pulse Rate 82 82 90 Respiratory 12 14 14 Rate Blood Pressure 129/72 127/75 140/78 O2 Sat by Pulse 94 L 96 92 L Oximetry 08/11/16 08/11/16 08/11/16 18:30 18:45 19:00 Temperature Pulse Rate 85 81 80 Respiratory 16 14 14 Rate Blood Pressure 112/67 91/63 90/58 O2 Sat by Pulse 95 94 L 94 L Oximetry 08/11/16 08/11/16 08/11/16 19:15 19:18 19:30 Temperature Pulse Rate 79 83 81 Respiratory Rate Blood Pressure 109/65 91/56 O2 Sat by Pulse 95 100 Oximetry 08/11/16 08/11/16 08/11/16 19:31 19:34 19:45 Temperature Pulse Rate 84 83 Respiratory Rate Blood Pressure 101/53 O2 Sat by Pulse 97 94 L Oximetry 08/11/16 08/11/16 08/11/16 20:00 20:15 20:30 Temperature Pulse Rate 83 88 83 Respiratory 14 Rate Blood Pressure 105/74 112/66 114/77 O2 Sat by Pulse 95 93 L 92 L Oximetry 08/11/16 08/11/16 08/11/16 20:45 21:00 21:15 Temperature Pulse Rate 84 84 81 Respiratory 14 Rate Blood Pressure 128/76 143/80 121/51 O2 Sat by Pulse 92 L 93 L 93 L Oximetry 08/11/16 08/11/16 08/11/16 21:30 21:45 22:00 Temperature Pulse Rate 76 89 77 Respiratory 15 Rate Blood Pressure 121/51 121/51 121/51 O2 Sat by Pulse 91 L 94 L 96 Oximetry 08/11/16 08/11/16 08/11/16 22:15 22:30 22:45 Temperature Pulse Rate 79 79 79 Respiratory 15 15 Rate Blood Pressure 120/78 120/78 120/78 O2 Sat by Pulse 96 95 96 Oximetry 08/11/16 08/11/16 08/11/16 23:00 23:15 23:29 Temperature Pulse Rate 79 78 79 Respiratory 15 17 15 Rate Blood Pressure 120/78 111/64 111/64 O2 Sat by Pulse 94 L 94 L 93 L Oximetry 08/11/16 08/11/1617 23:30 23:45 00:00 Temperature Pulse Rate 78 82 83 Respiratory 15 30 H 19 Rate Blood Pressure 111/64 111/64 111/64 O2 Sat by Pulse 94 L 96 92 L Oximetry 08/12/16 08/12/16 08/12/16 00:15 00:30 00:45 Temperature Pulse Rate 74 77 76 Respiratory 15 15 13 Rate Blood Pressure 112/68 112/68 112/68 O2 Sat by Pulse 94 L 95 96 Oximetry 08/12/16 08/12/16 08/12/16 01:00 01:15 01:30 Temperature Pulse Rate 86 78 77 Respiratory 16 17 15 Rate Blood Pressure 112/68 127/51 127/51 O2 Sat by Pulse 93 L 96 96 Oximetry 08/12/16 08/12/16 08/12/16 01:45 02:00 02:15 Temperature Pulse Rate 82 79 78 Respiratory 16 15 16 Rate Blood Pressure 127/51 127/51 126/70 O2 Sat by Pulse 93 L 94 L 97 Oximetry 08/12/16 08/12/16 08/12/16 02:30 02:45 03:00 Temperature Pulse Rate 86 94 80 Respiratory 22 29 H 20 Rate Blood Pressure 126/70 126/70 126/70 O2 Sat by Pulse 91 L 89 L 98 Oximetry 08/12/16 08/12/16 08/12/16 03:15 03:30 03:45 Temperature Pulse Rate 84 82 88 Respiratory 15 15 17 Rate Blood Pressure 99/66 99/66 99/66 O2 Sat by Pulse 91 L 92 L 92 L Oximetry 08/12/16 08/12/16 08/12/16 04:00 04:15 04:30 Temperature Pulse Rate 84 84 84 Respiratory 16 17 17 Rate Blood Pressure 99/66 123/76 123/76 O2 Sat by Pulse 93 L 93 L 94 L Oximetry 08/12/16 08/12/16 08/12/16 04:45 05:00 05:15 Temperature Pulse Rate 89 88 77 Respiratory 23 27 H 13 Rate Blood Pressure 123/76 123/76 140/93 O2 Sat by Pulse 92 L 91 L 97 Oximetry 08/12/16 08/12/16 08/12/16 05:30 05:45 06:00 Temperature Pulse Rate 84 86 81 Respiratory 24 15 19 Rate Blood Pressure 140/93 140/93 141/88 O2 Sat by Pulse 92 L 92 L 93 L Oximetry 08/12/16 08/12/16 06:15 06:30 Temperature Pulse Rate 93 108 H Respiratory 37 H 30 H Rate Blood Pressure 118/87 118/87 O2 Sat by Pulse 92 L 88 L Oximetry ABP, PAP, CO, CI - Last 8 Hours Pulmonary Artery Pressure 36/9 Pulmonary Artery Pressure 32/14 Pulmonary Artery Pressure 28/12 Pulmonary Artery Pressure 26/11 Pulmonary Artery Pressure 32/14 Pulmonary Artery Pressure 34/13 Pulmonary Artery Pressure 37/22 Pulmonary Artery Pressure 34/18 Pulmonary Artery Pressure 27/12 Pulmonary Artery Pressure 22/6 Pulmonary Artery Pressure 20/7 Pulmonary Artery Pressure 28/13 Pulmonary Artery Pressure 21/6 Pulmonary Artery Pressure 25/10 Pulmonary Artery Pressure 41/13 Pulmonary Artery Pressure 41/21 Pulmonary Artery Pressure 38/18 Pulmonary Artery Pressure 28/11 Pulmonary Artery Pressure 33/6 Pulmonary Artery Pressure 25/8 Pulmonary Artery Pressure 33/6 Pulmonary Artery Pressure 29/12 Pulmonary Artery Pressure 34/16 Pulmonary Artery Pressure 29/11 Pulmonary Artery Pressure 30/13 Pulmonary Artery Pressure 31/16 Pulmonary Artery Pressure 35/18 Pulmonary Artery Pressure 108/15 Pulmonary Artery Pressure 30/13 Pulmonary Artery Pressure 26/11 Cardiac Output 6.6 Cardiac Output 6.6 Cardiac Output 6.6 Cardiac Output 6.6 Cardiac Output 6.6 Cardiac Output 6.6 Cardiac Output 6.2 Cardiac Output 6.2 Cardiac Output 6.2 Cardiac Output 6.2 Cardiac Output 6.2 Cardiac Output 6.2 Cardiac Output 6.2 Cardiac Output 6.2 Cardiac Output 6.2 Cardiac Output 6.2 Cardiac Output 6.2 Cardiac Output 6.2 Cardiac Output 5.0 Cardiac Index 2.5 Labs: Short CBC 08/11/16 08/12/16 Range/Units 18:07 05:05 WBC 13.3 H 11.9 H (3.8-10.6) k/uL Hgb 9.3 L D 9.0 L (13.0-17.5) gm/dL Hct 28.3 L 27.6 L (39.0-53.0) % Plt Count 178 156 (150-450) k/uL Neutrophils # 10.3 H 9.8 H (1.3-7.7) k/uL BMP 08/11/16 08/12/16 18:07 05:05 Sodium 139 138 Potassium 4.6 4.6 Chloride 104 104 Carbon Dioxide 29 30 BUN 19 21 H Creatinine 0.90 0.70 Glucose 119 H 121 H Calcium 8.3 L 8.4 Liver Function 08/12/16 Range/Units 05:05 Total Bilirubin 0.5 (0.2-1.3) mg/dL AST 28 (17-59) U/L ALT 32 (21-72) U/L Alkaline Phosphatase 37 L (38-126) U/L Albumin 2.8 L (3.5-5.0) g/dL ABG ABG pH 7.48 (7.35-7.45) H 08/11/16 11:20 ABG pCO2 36 mmHg (35-45) 08/11/16 11:20 ABG pO2 113 mmHg (83-108) H 08/11/16 11:20 ABG O2 Saturation 99.0 % (94-97) H 08/11/16 11:20 PT/INR, D-dimer PT 11.4 sec (9.0-12.0) 08/12/16 05:05 INR 1.1 (<1.1) 08/12/16 05:05 D-Dimer 1.14 mg/L FEU (<0.60) H 08/06/16 15:08 IV Fluids: Lactated Ringer's at 40 mL/h Primacor drip at 0.2 g kilogram per minute Nitroglycerin at 5 mcg/m Insulin drip at 2.5 units per hour. Cardiac output: 6.6 Cardiac index: 3.3 Pulmonary artery pressures: 38/11 CVP: 4 Lungs: Essentially clear throughout, diminished bilateral bases right greater than left. Respirations are unlabored. O2 sat: 92% on 8 L high flow oxygen. I/S: 1500 mL, reviewed with the patient the importance of using his incentive spirometry every hour while awake. The patient did demonstrate good use of his incentive spirometry. Heart: S1S2, regular rhythm and rate, negative for S3, gallop or murmur. Bedside telemetry showing normal sinus rhythm heart rate 93. Sternum stable, chest incision clean with Dermabond dressing clean and dry. Heart hugger in place, instructed patient on use of his heart hugger. Left leg incisions clean dry and well approximated, SOSA drain remains in place, draining scant serosanguineous drainage. 70 mL output in the last 24 hours. Knee-high ULICES hose and sequential compression devices in place to bilateral lower extremities. Abdomen: Soft, Positive bowel sounds present in all 4 quadrants, negative for bowel movement since surgery. CBGs: 113-139 mg/dL in the last 24 hours. U/O: Adequate, Whitlock catheter for accurate I&O. 600 mL output in the last 8 hours, 3090 mL output in the last 24 hours. Chest Tubes: Left pleural chest tube without air leak, draining some serosanguineous drainage. 20 mL output in the last 24 hours. Mediastinal chest tube without air leak, draining thin serosanguineous drainage. 100 mL output the last 8 hours, 460 mL output last 24 hours. Right pleural chest tube without air leak, draining thin serosanguineous drainage. 40 mL output in the last 8 hours, 100 mL output in the last 24 hours. 24 hr Total: Intake & Output 08/10/16 08/11/16 08/12/16 08/13/16 06:59 06:59 06:59 07:59 Intake Total 550 2342.299 1932.859 Output Total 5294 3770 Balance 550 -2951.701 -1837.141 Weight 93.9 kg 93.3 kg Active Medications Hydrocodone Bitart/Acetaminophen (Superior 5-325) 2 each PO Q4HR PRN PRN Reason: Severe Pain Last Admin: 08/12/16 06:35 Dose: 2 each Hydrocodone Bitart/Acetaminophen (Superior 5-325) 1 each PO Q4HR PRN PRN Reason: Moderate Pain Albuterol/Ipratropium (Duoneb 0.5 Mg-3 Mg/3 Ml Soln) 3 ml INHALATION RT-Q2H PRN PRN Reason: Shortness Of Breath Or Wheezing Aspirin (Aspirin) 325 mg PO DAILY [facility] Last Admin: 08/11/16 08:58 Dose: 325 mg Atorvastatin Calcium (Lipitor) 40 mg PO DAILY [facility] Last Admin: 08/11/16 08:59 Dose: 40 mg Benzocaine/Menthol (Cepacol Lozenge) 1 each MUCOUS MEM Q2H PRN PRN Reason: Sore Throat Bisacodyl (Dulcolax) 10 mg RECTAL DAILY PRN PRN Reason: Constipation Clopidogrel Bisulfate (Plavix) 75 mg PO DAILY [facility] Last Admin: 08/11/16 08:59 Dose: 75 mg Fentanyl Citrate (Sublimaze) 25 mcg IV Q2HR PRN PRN Reason: Moderate-Severe Pain Last Admin: 08/11/16 12:29 Dose: 25 mcg Fentanyl Citrate (Sublimaze) 100 mcg IV Q2H PRN PRN Reason: Severe Pain Last Admin: 08/12/16 04:59 Dose: 100 mcg Heparin Sodium (Porcine) (Heparin) 5,000 unit SQ Q8HR JULIANE Last Admin: 08/12/16 00:04 Dose: 5,000 unit Albumin Human 250 ml/ IV (Solution) 250 mls @ 250 mls/hr IVPB Q1HR PRN PRN Reason: For Volume Stop: 08/12/16 16:47 Last Admin: 08/11/16 10:57 Dose: 250 mls/hr Clevidipine 25 mg/ IV Solution 50 mls @ 2 mls/hr IV .Q24H JULIANE; 1 MG/HR PRN Reason: Protocol Last Admin: 08/11/16 16:21 Dose: Not Given Lactated Ringer's (Lactated Ringers) 1,000 mls @ 20 mls/hr IV .Q24H JULIANE Last Admin: 08/11/16 16:22 Dose: 20 mls/hr Nitroglycerin/Dextrose 50 mg/ (IV Solution) 250 mls @ 1.5 mls/hr IV .Q24H JULIANE PRN Reason: 5 MCG/MIN Last Admin: 08/12/16 02:21 Dose: 5 mcg/min, 1.5 mls/hr Insulin Human Regular 100 unit (/ Sodium Chloride) 101 mls @ 0 mls/hr IV .Q0M JULIANE; Per Protocol PRN Reason: Protocol Last Titration: 08/12/16 00:14 Dose: 2 units/hr, 2.02 mls/hr Norepinephrine Bitartrate 16 (mg/ Sodium Chloride) 266 mls @ 0 mls/hr IV .Q0M JULIANE; Titrate PRN Reason: Protocol Last Admin: 08/12/16 02:15 Dose: 6 mcg/min, 5.98 mls/hr Lidocaine HCl/Dextrose 2,000 (mg/ IV Solution) 500 mls @ 30 mls/hr IV .[id number] JULIANE PRN Reason: 2 MG/MIN Last Admin: 08/12/16 02:21 Dose: Not Given Milrinone Lactate/Dextrose 20 (mg/ IV Solution) 100 mls @ 5.1 mls/hr IV .[id number] [facility] PRN Reason: 0.2 MCG/KG/MIN Last Admin: 08/12/16 00:03 Dose: 0.2 mcg/kg/min, 5.1 mls/hr Dexmedetomidine HCl 400 mcg/ (Sodium Chloride) 104 mls @ 0 mls/hr IV .Q0M [facility]; Titrate PRN Reason: Protocol Stop: 08/12/16 08:53 Last Titration: 08/12/16 00:14 Dose: Infused Ketorolac Tromethamine (Toradol) 30 mg IVP Q6HR [facility] Stop: 08/15/16 16:01 Last Admin: 08/12/16 05:06 Dose: 30 mg Lorazepam (Ativan) 2 mg IV Q2H PRN PRN Reason: Anxiety Last Admin: 08/12/16 05:30 Dose: 2 mg Magnesium Hydroxide (Milk Of Magnesia) 2,400 mg PO BID PRN PRN Reason: Constipation Methylprednisolone Sodium Succinate (Solu-Medrol) 30 mg IV Q8HR [facility] Last Admin: 08/11/16 23:48 Dose: 30 mg Metoprolol Tartrate (Lopressor) 12.5 mg PO BID [facility] Last Admin: 08/11/16 20:52 Dose: Not Given Miscellaneous Information (Magnesium Per Protocol) 1 each MISCELLANE DAILY PRN ; Protocol PRN Reason: Per Protocol Miscellaneous Information (Phosphorus Per Protocol) 1 each MISCELLANE DAILY PRN ; Protocol PRN Reason: Per Protocol Miscellaneous Information (Potassium Per Protocol) 1 each MISCELLANE DAILY PRN ; Protocol PRN Reason: Per Protocol Morphine Sulfate (Morphine Sulfate (Inj)) 2 mg IVP Q2H PRN PRN Reason: Severe Pain Last Admin: 08/11/16 05:14 Dose: 2 mg Mupirocin (Bactroban Oint) 1 applic NASAL BID [facility] Stop: 08/13/16 21:01 Last Admin: 08/11/16 21:37 Dose: 1 applic Ondansetron HCl (Zofran) 4 mg IVP Q6HR PRN PRN Reason: Nausea And Vomiting Pantoprazole Sodium (Protonix) 40 mg IVP DAILY [facility] Last Admin: 08/11/16 08:59 Dose: 40 mg Quetiapine Fumarate (Seroquel) 25 mg PO BID [facility] Last Admin: 08/11/16 21:37 Dose: 25 mg Senna/Docusate Sodium (Senokot-S) 2 each PO HS [facility] Last Admin: 08/11/16 21:38 Dose: 2 each Sodium Chloride (Saline Flush) 10 ml IV BID [facility] Last Admin: 08/11/16 20:52 Dose: Not Given Plan: 1. Continue aspirin, statin, heparin, Plavix. 2. We will increase his metoprolol to 25 mg by mouth twice a day. 3. Discontinue the Primacor drip. 4. We will discontinue his mediastinal and right pleural chest tubes, keep the left pleural chest tube and placed to -20 cm wall suction. 5. We will discontinue his Bruin-Cortes catheter. 6. Monitor vital signs, I and O's, daily labs, daily x-rays. 7. Will need aggressive pain and anxiety control 8. Corticosteroids per pulmonology. Encourage use of his incentive spirometry every hour while awake. 9. GI/DVT prophylaxis 10. Encourage increased activity working with physical therapy. Right pleural and mediastinal chest tubes removed without incident at 11 AM today. Sutures secured, 4 x 4 dressing to cover and secured with tape. Left pleural chest tube remains in place to -20 cm wall suction.
[2016-08-12] MEDS: LOSARTAN 25 MG TAB PO SCH (11:28)
[2016-08-12 11:47] LABS: Glucose,Whole Blood 74 mg/dL (75-99)
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
[2016-08-12] MEDS: IPRATROPIUM-ALBUTEROL 3 ML NEB INHALATION SCH ×2 (15:54→19:41)
[2016-08-12 16:20] LABS: Glucose,Whole Blood 140 mg/dL (75-99)
[2016-08-12] MEDS: INSULIN LISPRO (humaLOG) 300 UNIT/3 ML VIAL SQ SCH ×2 (16:29→20:58)
[2016-08-12] MEDS: METOPROLOL TARTRATE 25 MG TAB PO SCH (17:06)
--- NOTE | 2016-08-12 17:43 | PN ---
DATE OF SERVICE: 08/12/2016 CHIEF COMPLAINT: Status post coronary artery bypass graft. HISTORY OF PRESENT ILLNESS: This gentleman is doing a little bit better. Breathing has improved slightly. PHYSICAL EXAMINATION: Breath sounds are heard bilaterally and cardiac exam was unremarkable. His vital signs are normal at this point. IMPRESSION: 1. Status post coronary artery bypass graft. 2. Chronic obstructive pulmonary disease. PLAN: No change in program and follow with thoracic surgery and cardiology.
[2016-08-12] MEDS: BUDESONIDE 0.5 MG/2 ML NEBU INHALATION SCH (19:41)
--- NOTE | 2016-08-12 20:20 | P.PN ---
Subjective Principal diagnosis: This patient is status post coronary artery bypass surgeryand is doing much better today as compared to yesterday patient is off all the hemodynamic support he's sitting in the chair comfortably. Continuous to have a generalized pain and discomfort. Objective - Vital Signs Vital signs: Vital Signs Temp 98.1 F 08/12/16 12:15 Pulse 101 H 08/12/16 19:58 Resp 17 08/12/16 19:15 BP 109/56 08/12/16 19:15 Pulse Ox 96 08/12/16 19:15 Intake & Output 08/12/16 08/12/16 08/13/16 06:59 18:59 07:59 Intake Total 1065.189 874.265 Output Total 1565 1733 Balance -499.811 -858.735 Weight 93.3 kg 93.3 kg Intake: IV 170 30 Lactated Ringers 1,000 ml 50 @ 10 mls/hr IV .Q24H PRN Rx#:[id number] cardiac output injectate 120 30 Intake, IV Titration 895.189 604.265 Amount Dexmedetomidine 400 mcg 104.000 In Sodium Chloride 0.9% 100 ml @ Titrate IV .Q0M JULIANE Rx#:[id number] Insulin Regular 100 unit 35.868 17.035 In Sodium Chloride 0.9% 100 ml @ Per Protocol IV .Q0M JULIANE Rx#:[id number] Lactated Ringers 1,000 ml 450 500 @ 20 mls/hr IV .Q24H JULIANE Rx#:[id number] Milrinone-D5w Pmx 20 mg 55.63 43.775 In Dextrose/Water 1 100ml .bag @ 0.2 MCG/KG/MIN 5.1 mls/hr IV .[id number] JULIANE Rx#:[id number] Nitroglycerin-D5w Pmx 50 46.475 15.05 mg In Dextrose/Water 1 250ml.bag @ 5 MCG/MIN 1.5 mls/hr IV .Q24H JULIANE Rx#: [id number] Norepinephrine 16 mg In 203.216 28.405 Sodium Chloride 0.9% 250 ml @ Titrate IV .Q0M JULIANE Rx#:[id number] Oral 240 Output: Chest Tube Drainage 220 128 Chest Tube Left Lateral 20 25 Chest Chest Tube Mediastinal 160 80 Chest Tube Right Lateral 40 23 Chest Drainage 150 Left Calf 150 Urine 1345 1455 Other: Voiding Method Indwelling Catheter Indwelling Catheter # Voids 1 ABP, PAP, CO, CI - Last Documented Arterial Blood Pressure 88/52 Pulmonary Artery Pressure 31/15 Cardiac Output 7.2 Cardiac Index 3.6 - Exam Vital signs are reviewed. First and second heart sounds are normal. Lungs reveal scattered rhonchi. Rhythm strips does not show any significant arrhythmia. - Labs CBC & Chem 7: 08/12/16 05:05 08/12/16 05:05 Labs: Abnormal Lab Results - Last 24 Hours (Table) 08/11/16 08/11/16 08/12/16 Range/Units 20:16 22:28 00:13 WBC (3.8-10.6) k/uL RBC (4.30-5.90) m/uL Hgb (13.0-17.5) gm/dL Hct (39.0-53.0) % Neutrophils # (1.3-7.7) k/uL BUN (9-20) mg/dL Glucose (74-99) mg/dL POC Glucose (mg/dL) 120 H 130 H 113 H (75-99) mg/dL Alkaline Phosphatase (38-126) U/L Total Protein (6.3-8.2) g/dL Albumin (3.5-5.0) g/dL 08/12/16 08/12/16 08/12/16 Range/Units 03:02 03:47 05:05 WBC (3.8-10.6) k/uL RBC (4.30-5.90) m/uL Hgb (13.0-17.5) gm/dL Hct (39.0-53.0) % Neutrophils # (1.3-7.7) k/uL BUN 21 H (9-20) mg/dL Glucose 121 H (74-99) mg/dL POC Glucose (mg/dL) 134 H 139 H (75-99) mg/dL Alkaline Phosphatase 37 L (38-126) U/L Total Protein 4.6 L (6.3-8.2) g/dL Albumin 2.8 L (3.5-5.0) g/dL 08/12/16 08/12/16 08/12/16 Range/Units 05:05 08:01 10:17 WBC 11.9 H (3.8-10.6) k/uL RBC 2.86 L (4.30-5.90) m/uL Hgb 9.0 L (13.0-17.5) gm/dL Hct 27.6 L (39.0-53.0) % Neutrophils # 9.8 H (1.3-7.7) k/uL BUN (9-20) mg/dL Glucose (74-99) mg/dL POC Glucose (mg/dL) 122 H 102 H (75-99) mg/dL Alkaline Phosphatase (38-126) U/L Total Protein (6.3-8.2) g/dL Albumin (3.5-5.0) g/dL 08/12/16 08/12/16 Range/Units 11:45 16:17 WBC (3.8-10.6) k/uL RBC (4.30-5.90) m/uL Hgb (13.0-17.5) gm/dL Hct (39.0-53.0) % Neutrophils # (1.3-7.7) k/uL BUN (9-20) mg/dL Glucose (74-99) mg/dL POC Glucose (mg/dL) 74 L 140 H (75-99) mg/dL Alkaline Phosphatase (38-126) U/L Total Protein (6.3-8.2) g/dL Albumin (3.5-5.0) g/dL Assessment and Plan Plan: As the patient remains tachycardic we will increase the dose of Lopressor to 25 mg per oral every 6 hourly continue the rest of the medications.
[2016-08-12] MEDS: SENNOSIDES-DOCUSATE SODIUM 1 EACH TAB PO SCH (20:38)
[2016-08-12 20:53] LABS: Glucose,Whole Blood 134 mg/dL (75-99)
[2016-08-13] MEDS: KETOROLAC 30 MG/ML 1 ML VIAL IVP SCH ×5 (01:56→23:55)
[2016-08-13] MEDS: METOPROLOL TARTRATE 25 MG TAB PO SCH ×5 (01:56→23:51)
[2016-08-13] MEDS: HEPARIN SODIUM,PORCINE 5,000 UNIT/ML 1 ML VIAL SQ SCH ×4 (01:56→23:39)
[2016-08-13] MEDS: HYDROcodone/APAP 5-325MG 1 EACH TAB PO PRN ×2 (05:15→09:49)
[2016-08-13] MEDS: LORazepam 2 MG/ML SYRINGE IV PRN ×3 (05:15→20:23)
[2016-08-13 06:31] LABS: Basophils % (A) 0 %; CH 31.3; CHCM 32.3; Eosinophils % (A) 0 %; HCT 26.4 % (39.0-53.0); HDW 2.07; HGB 8.5 gm/dL (13.0-17.5); Luc % (Auto) 1; Lymphocytes # (A) 1.1 k/uL (1.0-4.8); Lymphocytes % (A) 9 %; MCH 31.4 pg (25.0-35.0); MCHC 32.3 g/dL (31.0-37.0); MCV 97.2 fL (80.0-100.0); Mean Platelet Volume 7.7; Monocytes # (A) 0.5 k/uL (0-1.0); Monocytes % (A) 4 %; Neutrophils # (A) 10.7 k/uL (1.3-7.7); Neutrophils % (A) 86 %; RBC 2.72 m/uL (4.30-5.90); RDW 13.6 % (11.5-15.5); WBC 12.5 k/uL (3.8-10.6); WBC (Perox) 12.87
[2016-08-13 06:40] LABS: Ionized Calcium 4.8 mg/dL (4.5-5.3); Prothrombin Time 10.4 sec (9.0-12.0)
[2016-08-13 06:57] LABS: ALT 38 U/L (21-72); AST 24 U/L (17-59); Alkaline Phosphatase 39 U/L (38-126); Anion Gap 5 mmol/L; Blood Urea Nitrogen 35 mg/dL (9-20); Calcium 8.3 mg/dL (8.4-10.2); Carbon Dioxide 30 mmol/L (22-30); Chloride 105 mmol/L (98-107); Glucose 167 mg/dL (74-99); Non-African American GFR(MDRD) >60 (>60 ml/min/1.73 sqM); Potassium 4.9 mmol/L (3.5-5.1); Sodium 140 mmol/L (137-145); Total Bilirubin 0.4 mg/dL (0.2-1.3); Total Protein 4.6 g/dL (6.3-8.2)
[2016-08-13] MEDS: INSULIN LISPRO (humaLOG) 300 UNIT/3 ML VIAL SQ SCH ×4 (07:30→20:28)
[2016-08-13] MEDS: BUDESONIDE 0.5 MG/2 ML NEBU INHALATION SCH ×2 (07:34→19:33)
[2016-08-13] MEDS: IPRATROPIUM-ALBUTEROL 3 ML NEB INHALATION SCH ×4 (07:38→19:33)
--- NOTE | 2016-08-13 09:07 | XR ---
EXAMINATION TYPE: XR chest 1V portable DATE OF EXAM: 08/13/2016 8:49 AM COMPARISON: 08/12/2016 HISTORY: Postop CABG TECHNIQUE: Single frontal view of the chest is obtained. FINDINGS: There is subcutaneous emphysema extending into the left neck. [place] catheter is been r emoved. Right-sided chest tube is no longer seen. Along the right flank. Subcutaneous seen. Left ches t tube remains in position. Widening suggestive of a less than 5% right apical pneumothorax. Basilar consolidation on the right is stable likely related to postoperative atelectasis IMPRESSION: 1. Less than 5% right apical pneumothorax with basilar consolidation suggestive of postoperative atel ectasis. 2. Subcutaneous emphysema bilaterally
[2016-08-13] MEDS: ASPIRIN 325 MG TAB PO SCH (09:44)
[2016-08-13] MEDS: SODIUM CHLORIDE 0.9% 1,000 ML IV SCH (09:44)
[2016-08-13] MEDS: PANTOPRAZOLE 40 MG TABLET PO SCH (09:44)
[2016-08-13] MEDS: CLOPIDOGREL 75 MG TAB PO SCH (09:45)
[2016-08-13] MEDS: ATORVASTATIN 40 MG TAB PO SCH (09:45)
[2016-08-13] MEDS: MUPIROCIN 2% OINT 22 GM TUBE NASAL SCH ×2 (09:45→20:30)
[2016-08-13] MEDS: methylPREDNISolone SOD SUCCI 40 MG/ML 1 ML VIAL IV SCH (09:45)
[2016-08-13] MEDS: QUEtiapine 25 MG TAB PO SCH ×2 (09:46→23:40)
--- NOTE | 2016-08-13 12:17 | P.PN ---
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 Hypertension. Hyperlipidemia. Tobacco abuse with severe emphysematous changes in both lungs. Mild mitral valve regurgitation. POD #3 triple coronary artery bypass grafting using the left internal mammary artery to the left anterior descending artery, reverse saphenous vein graft from the aorta to the diagonal artery, reverse saphenous vein graft from the aorta to the posterior descending artery. Endoscopic harvesting of the left greater saphenous vein from groin to below knee level. Intraoperative transesophageal echocardiogram and epi-aortic scanning. Intraoperative graft flow measurements. Patient awake and alert, no distress noted, no specific complaints. Patient states his pain is much more controlled today currently rating his pain 3 out of 10 on the pain scale. Vital Signs: Afebrile Vital Signs - 24 hr 08/12/16 08/12/16 08/12/16 09:45 10:00 10:15 Temperature Pulse Rate 108 H 107 H 118 H Respiratory 22 14 31 H Rate Blood Pressure 96/60 115/47 115/47 O2 Sat by Pulse 94 L 90 L 87 L Oximetry 08/12/16 08/12/16 08/12/16 10:28 10:30 10:45 Temperature Pulse Rate 114 H 100 Respiratory 19 17 Rate Blood Pressure 115/47 115/47 O2 Sat by Pulse 96 Oximetry 08/12/16 08/12/16 08/12/16 11:00 11:15 11:30 Temperature 98.1 F Pulse Rate 87 86 78 Respiratory 21 36 H 17 Rate Blood Pressure 125/76 115/73 121/77 O2 Sat by Pulse 91 L 92 L 91 L Oximetry 08/12/16 08/12/16 08/12/16 11:44 11:45 12:00 Temperature Pulse Rate 89 85 93 Respiratory 17 15 18 Rate Blood Pressure 121/77 O2 Sat by Pulse 97 98 Oximetry 08/12/16 08/12/16 08/12/16 12:15 12:30 12:45 Temperature 98.1 F Pulse Rate 89 86 89 Respiratory 17 16 15 Rate Blood Pressure 145/71 137/76 137/76 O2 Sat by Pulse 94 L 94 L 95 Oximetry 08/12/16 08/12/16 08/12/16 13:00 13:15 13:30 Temperature Pulse Rate 88 114 H 111 H Respiratory 15 42 H 19 Rate Blood Pressure 116/79 116/79 119/63 O2 Sat by Pulse 91 L 92 L 93 L Oximetry 08/12/16 08/12/16 08/12/16 13:45 14:00 14:15 Temperature Pulse Rate 125 H 113 H 110 H Respiratory 32 H 21 16 Rate Blood Pressure 119/63 119/63 106/59 O2 Sat by Pulse 93 L 92 L 92 L Oximetry 08/12/16 08/12/16 08/12/16 14:30 14:45 15:00 Temperature Pulse Rate 111 H 112 H 105 H Respiratory 35 H 23 34 H Rate Blood Pressure 102/64 102/64 102/64 O2 Sat by Pulse 92 L 93 L 93 L Oximetry 08/12/16 08/12/16 08/12/16 15:15 15:30 15:45 Temperature Pulse Rate 106 H 108 H 126 H Respiratory 40 H 29 H 24 Rate Blood Pressure 117/60 97/67 97/67 O2 Sat by Pulse 89 L 92 L 91 L Oximetry 08/12/16 08/12/16 08/12/16 15:55 16:00 16:10 Temperature Pulse Rate 109 H 108 H 99 Respiratory 19 19 Rate Blood Pressure 120/65 O2 Sat by Pulse 96 Oximetry 08/12/16 08/12/16 08/12/16 16:15 16:30 16:45 Temperature Pulse Rate 109 H 101 H 111 H Respiratory 27 H 29 H 18 Rate Blood Pressure 120/65 111/72 111/72 O2 Sat by Pulse 92 L 94 L 83 L Oximetry 08/12/16 08/12/16 08/12/16 17:00 17:15 17:30 Temperature Pulse Rate 109 H 112 H 111 H Respiratory 19 25 H 33 H Rate Blood Pressure 131/61 131/61 119/63 O2 Sat by Pulse 92 L 94 L 94 L Oximetry 08/12/16 08/12/16 08/12/16 17:45 18:00 18:15 Temperature Pulse Rate 106 H 106 H 95 Respiratory 15 15 15 Rate Blood Pressure 119/63 114/62 114/62 O2 Sat by Pulse 94 L 92 L 96 Oximetry 08/12/16 08/12/16 08/12/16 18:30 18:45 19:00 Temperature Pulse Rate 95 91 91 Respiratory 15 19 20 Rate Blood Pressure 117/63 117/63 109/56 O2 Sat by Pulse 96 95 96 Oximetry 08/12/16 08/12/16 08/12/16 19:15 19:30 19:41 Temperature Pulse Rate 93 90 88 Respiratory 17 24 Rate Blood Pressure 109/56 111/67 O2 Sat by Pulse 96 98 Oximetry 08/12/16 08/12/16 08/12/16 19:45 19:58 20:00 Temperature 98.2 F Pulse Rate 88 101 H 90 Respiratory 15 18 Rate Blood Pressure 111/67 90/68 O2 Sat by Pulse 96 92 L Oximetry 08/12/16 08/12/16 08/12/16 20:15 20:30 20:45 Temperature Pulse Rate 94 94 105 H Respiratory 22 17 24 Rate Blood Pressure 90/68 103/58 103/58 O2 Sat by Pulse Oximetry 08/12/16 08/12/16 08/12/16 21:00 21:15 21:30 Temperature Pulse Rate 97 101 H 106 H Respiratory 20 19 19 Rate Blood Pressure 107/42 107/42 101/61 O2 Sat by Pulse 91 L Oximetry 08/12/16 08/12/16 08/12/16 21:45 22:00 22:15 Temperature Pulse Rate 103 H 107 H 100 Respiratory 16 18 16 Rate Blood Pressure 101/61 91/46 91/46 O2 Sat by Pulse 90 L 93 L Oximetry 08/12/16 08/12/16 08/12/16 22:30 22:45 23:00 Temperature Pulse Rate 108 H 99 100 Respiratory 55 H 22 21 Rate Blood Pressure 91/46 91/46 103/61 O2 Sat by Pulse 92 L 80 L 90 L Oximetry 08/12/16 08/12/16 08/12/16 23:07 23:15 23:30 Temperature Pulse Rate 102 H 107 H 101 H Respiratory 38 H 29 H 18 Rate Blood Pressure 103/61 103/61 O2 Sat by Pulse Oximetry 08/12/16 08/13/16 08/13/16 23:45 00:00 00:15 Temperature 97.7 F Pulse Rate 96 99 99 Respiratory 14 15 18 Rate Blood Pressure 103/61 103/61 107/63 O2 Sat by Pulse 92 L 97 90 L Oximetry 08/13/16 08/13/16 08/13/16 00:30 00:45 01:00 Temperature Pulse Rate 89 87 95 Respiratory 14 14 15 Rate Blood Pressure 107/63 107/63 107/63 O2 Sat by Pulse 94 L 94 L 91 L Oximetry 08/13/16 08/13/16 08/13/16 01:15 01:30 01:45 Temperature Pulse Rate 96 93 92 Respiratory 17 14 13 Rate Blood Pressure 109/65 109/65 109/65 O2 Sat by Pulse 92 L 88 L 86 L Oximetry 08/13/16 08/13/16 08/13/16 03:00 03:15 03:30 Temperature Pulse Rate 93 99 97 Respiratory 17 16 16 Rate Blood Pressure 109/65 129/66 129/66 O2 Sat by Pulse 86 L 89 L 91 L Oximetry 08/13/16 08/13/16 08/13/16 03:45 04:00 04:15 Temperature 97.5 F L Pulse Rate 105 H 102 H 100 Respiratory 17 18 10 L Rate Blood Pressure 129/66 129/66 108/63 O2 Sat by Pulse 89 L 87 L 91 L Oximetry 08/13/16 08/13/16 08/13/16 04:30 04:45 05:00 Temperature Pulse Rate 99 96 91 Respiratory 17 20 23 Rate Blood Pressure 108/63 108/63 108/63 O2 Sat by Pulse 87 L 89 L 87 L Oximetry 08/13/16 08/13/16 08/13/16 05:15 05:30 05:45 Temperature Pulse Rate 90 100 95 Respiratory 19 22 22 Rate Blood Pressure 107/66 107/66 107/66 O2 Sat by Pulse 88 L 88 L 90 L Oximetry 08/13/16 08/13/16 08/13/16 06:00 06:15 06:30 Temperature Pulse Rate 89 91 95 Respiratory 18 20 13 Rate Blood Pressure 107/66 107/66 107/66 O2 Sat by Pulse Oximetry 08/13/16 08/13/16 08/13/16 06:45 07:00 07:15 Temperature Pulse Rate 82 77 74 Respiratory 16 14 14 Rate Blood Pressure 109/65 105/68 O2 Sat by Pulse 94 L Oximetry 08/13/16 08/13/16 07:38 08:19 Temperature Pulse Rate 74 79 Respiratory 14 Rate Blood Pressure O2 Sat by Pulse Oximetry Labs: Short CBC 08/13/16 Range/Units 04:30 WBC 12.5 H (3.8-10.6) k/uL Hgb 8.5 L (13.0-17.5) gm/dL Hct 26.4 L (39.0-53.0) % Plt Count 159 (150-450) k/uL Neutrophils # 10.7 H (1.3-7.7) k/uL BMP 08/13/16 04:30 Sodium 140 Potassium 4.9 Chloride 105 Carbon Dioxide 30 BUN 35 H Creatinine 0.90 Glucose 167 H Calcium 8.3 L Liver Function 08/13/16 Range/Units 04:30 Total Bilirubin 0.4 (0.2-1.3) mg/dL AST 24 (17-59) U/L ALT 38 (21-72) U/L Alkaline Phosphatase 39 (38-126) U/L Albumin 2.7 L (3.5-5.0) g/dL IV Fluids: 0.9% normal saline at 30 mL per hour. CVP: 16 Lungs: Diminished bilateral bases, essentially clear to his upper lobes. Respirations are unlabored. O2 sat: 94% on 10 L high flow nasal cannula I/S: 2750 mL, reviewed with the patient the importance of using his incentive spirometry every hour while awake. The patient did give a good return demonstration on his incentive spirometry. Heart: S1S2, regular rhythm and rate, negative for murmur, S3 or gallop. Bedside telemetry showing normal sinus rhythm heart rate 98. Sternum stable, chest incision clean with Dermabond dressing clean and dry. Heart hugger in place, instructed patient on use of his heart hugger. Left leg incisions clean dry and intact, well approximated. No drainage noted. Knee-high ULICES hose and sequential compression devices in place to bilateral lower extremities. Abdomen: Soft, Positive bowel sounds present in all 4 quadrants. CBGs: 74-140 mg/dL in the last 24 hours. U/O: Adequate, 650 mL output in the last 8 hours, 2310 mL output the last 24 hours. Chest Tubes: Left pleural chest tube without air leak, remains to -20 cm wall suction. Thin serosanguineous drainage. 20 mL output in the last 8 hours, 130 mL output in the last 24 hours. Active Medications Hydrocodone Bitart/Acetaminophen ([place] 5-325) 2 each PO Q4HR PRN PRN Reason: Severe Pain Last Admin: 08/13/16 09:49 Dose: 2 each Hydrocodone Bitart/Acetaminophen ([place] 5-325) 1 each PO Q4HR PRN PRN Reason: Moderate Pain Albuterol/Ipratropium (Duoneb 0.5 Mg-3 Mg/3 Ml Soln) 3 ml INHALATION RT-Q2H PRN PRN Reason: Shortness Of Breath Or Wheezing Last Admin: 08/12/16 11:44 Dose: 3 ml Albuterol/Ipratropium (Duoneb 0.5 Mg-3 Mg/3 Ml Soln) 3 ml INHALATION RT-QID [facility] Last Admin: 08/13/16 07:38 Dose: 3 ml Aspirin (Aspirin) 325 mg PO DAILY [facility] Last Admin: 08/13/16 09:44 Dose: 325 mg Atorvastatin Calcium (Lipitor) 40 mg PO DAILY [facility] Last Admin: 08/13/16 09:45 Dose: 40 mg Benzocaine/Menthol (Cepacol Lozenge) 1 each MUCOUS MEM Q2H PRN PRN Reason: Sore Throat Bisacodyl (Dulcolax) 10 mg RECTAL DAILY PRN PRN Reason: Constipation Budesonide (Pulmicort) 0.5 mg INHALATION RT-BID [facility] Last Admin: 08/13/16 07:34 Dose: 0.5 mg Clopidogrel Bisulfate (Plavix) 75 mg PO DAILY [facility] Last Admin: 08/13/16 09:45 Dose: 75 mg Heparin Sodium (Porcine) (Heparin) 5,000 unit SQ Q8HR [facility] Last Admin: 08/13/16 09:44 Dose: 5,000 unit Lidocaine HCl/Dextrose 2,000 (mg/ IV Solution) 500 mls @ 30 mls/hr IV .[id number] [facility] PRN Reason: 2 MG/MIN Last Admin: 08/12/16 23:03 Dose: Not Given Sodium Chloride (Saline 0.9%) 1,000 mls @ 20 mls/hr IV .Q24H [facility] Last Admin: 08/13/16 09:44 Dose: 20 mls/hr Insulin Human Lispro (Humalog) 0 unit SQ ACHS [facility] PRN Reason: Protocol Last Admin: 08/13/16 07:30 Dose: 3 unit Ketorolac Tromethamine (Toradol) 30 mg IVP Q6HR [facility] Stop: 08/15/16 16:01 Last Admin: 08/13/16 06:21 Dose: 30 mg Lorazepam (Ativan) 2 mg IV Q2H PRN PRN Reason: Anxiety Last Admin: 08/13/16 10:40 Dose: 2 mg Losartan Potassium (Cozaar) 25 mg PO 1200 [facility] Last Admin: 08/12/16 11:28 Dose: 25 mg Magnesium Hydroxide (Milk Of Magnesia) 2,400 mg PO BID PRN PRN Reason: Constipation Methylprednisolone Sodium Succinate (Solu-Medrol) 30 mg IV Q12HR [facility] Last Admin: 08/13/16 09:45 Dose: 30 mg Metoprolol Tartrate (Lopressor) 25 mg PO Q6HR [facility] Last Admin: 08/13/16 06:18 Dose: 25 mg Miscellaneous Information (Magnesium Per Protocol) 1 each MISCELLANE DAILY PRN ; Protocol PRN Reason: Per Protocol Miscellaneous Information (Phosphorus Per Protocol) 1 each MISCELLANE DAILY PRN ; Protocol PRN Reason: Per Protocol Miscellaneous Information (Potassium Per Protocol) 1 each MISCELLANE DAILY PRN ; Protocol PRN Reason: Per Protocol Morphine Sulfate (Morphine Sulfate (Inj)) 2 mg IVP Q2H PRN PRN Reason: Severe Pain Last Admin: 08/12/16 17:06 Dose: 2 mg Mupirocin (Bactroban Oint) 1 applic NASAL BID [facility] Stop: 08/13/16 21:01 Last Admin: 08/13/16 09:45 Dose: 1 applic Ondansetron HCl (Zofran) 4 mg IVP Q6HR PRN PRN Reason: Nausea And Vomiting Oxycodone HCl (Oxyir) 15 mg PO Q6H PRN PRN Reason: Pain Last Admin: 08/13/16 06:17 Dose: 15 mg Pantoprazole Sodium (Protonix) 40 mg PO AC-BRKFST [facility] Last Admin: 08/13/16 09:44 Dose: 40 mg Quetiapine Fumarate (Seroquel) 25 mg PO BID [facility] Last Admin: 08/13/16 09:46 Dose: 25 mg Senna/Docusate Sodium (Senokot-S) 2 each PO HS [facility] Last Admin: 08/12/16 20:38 Dose: 2 each Sodium Chloride (Saline Flush) 10 ml IV BID [facility] Last Admin: 08/13/16 09:46 Dose: 10 ml Plan: 1. Continue aspirin, statin, heparin, Plavix. 2. Continue metoprolol to 25 mg by mouth every [address] Fischer. 3. We will discontinue his left pleural chest tube. 4. Decreased Solu-Medrol to 30 mg daily IV. 5. He will be kept in the intensive care unit for another 24 hours. 6. Monitor vital signs, I and O's, daily labs, daily x-rays. 7. Continue pain and anxiety control per when necessary orders 8. Corticosteroids per pulmonology. Encourage use of his incentive spirometry every hour while awake. 9. GI/DVT prophylaxis 10. Encourage increased activity working with physical therapy.
--- NOTE | 2016-08-13 12:26 | P.PN ---
Subjective This patient is status post coronary artery bypass surgery. Patient's vital signs and laboratory tests and medications are reviewed. Patient is comfortable slightly confused no respiratory distress noted no arrhythmias are noted vital signs are reviewed. Objective - Vital Signs Vital signs: Vital Signs Temp 98.2 F 08/13/16 08:00 Pulse 95 08/13/16 11:00 Resp 27 H 08/13/16 11:00 BP 110/72 08/13/16 11:00 Pulse Ox 97 08/13/16 11:00 Intake & Output 08/12/16 08/13/16 08/13/16 17:59 06:59 18:59 Intake Total 400 Output Total 525 Balance -125 Weight Intake: IV cardiac output injectate Intake, IV Titration 160 Amount Insulin Regular 100 unit In Sodium Chloride 0.9% 100 ml @ Per Protocol IV .Q0M JULIANE Rx#:[id number] Lactated Ringers 1,000 ml 90 @ 20 mls/hr IV .Q24H JULIANE Rx#:[id number] Milrinone-D5w Pmx 20 mg In Dextrose/Water 1 100ml .bag @ 0.2 MCG/KG/MIN 5.1 mls/hr IV .[id number] JULIANE Rx#:[id number] Nitroglycerin-D5w Pmx 50 mg In Dextrose/Water 1 250ml.bag @ 5 MCG/MIN 1.5 mls/hr IV .Q24H JULIANE Rx#: [id number] Norepinephrine 16 mg In Sodium Chloride 0.9% 250 ml @ Titrate IV .Q0M JULIANE Rx#:[id number] Sodium Chloride 0.9% 1, 70 000 ml @ 20 mls/hr IV . Q24H JULIANE Rx#:[id number] Oral 240 Output: Chest Tube Drainage Chest Tube Left Lateral Chest Chest Tube Mediastinal Chest Tube Right Lateral Chest Drainage Left Calf Urine 525 Other: Voiding Method Urinal # Voids ABP, PAP, CO, CI - Last Documented Arterial Blood Pressure 88/52 Pulmonary Artery Pressure 31/15 Cardiac Output 7.2 Cardiac Index 3.6 - Exam Patient is resting comfortably. Vital signs are normal. Respirations are not labored. First and second heart sound is normal. Lungs reveal a few scattered wheezes. - Labs CBC & Chem 7: 08/13/16 04:30 08/13/16 04:30 Labs: Abnormal Lab Results - Last 24 Hours (Table) 08/12/16 08/12/16 08/12/16 Range/Units 11:45 16:17 20:51 WBC (3.8-10.6) k/uL RBC (4.30-5.90) m/uL Hgb (13.0-17.5) gm/dL Hct (39.0-53.0) % Neutrophils # (1.3-7.7) k/uL BUN (9-20) mg/dL Glucose (74-99) mg/dL POC Glucose (mg/dL) 74 L 140 H 134 H (75-99) mg/dL Calcium (8.4-10.2) mg/dL Total Protein (6.3-8.2) g/dL Albumin (3.5-5.0) g/dL 08/13/16 08/13/16 Range/Units 04:30 04:30 WBC 12.5 H (3.8-10.6) k/uL RBC 2.72 L (4.30-5.90) m/uL Hgb 8.5 L (13.0-17.5) gm/dL Hct 26.4 L (39.0-53.0) % Neutrophils # 10.7 H (1.3-7.7) k/uL BUN 35 H (9-20) mg/dL Glucose 167 H (74-99) mg/dL POC Glucose (mg/dL) (75-99) mg/dL Calcium 8.3 L (8.4-10.2) mg/dL Total Protein 4.6 L (6.3-8.2) g/dL Albumin 2.7 L (3.5-5.0) g/dL Assessment and Plan Plan: Patient is stable postop. There is no evidence of any significant congestive cardiac failure. Continue the current medications.
[2016-08-13] MEDS: LOSARTAN 25 MG TAB PO SCH (12:57)
[2016-08-13 12:58] LABS: Glucose,Whole Blood 82 mg/dL (75-99)
--- NOTE | 2016-08-13 14:19 | P.PN ---
Subjective Principal diagnosis: coronary artery disease patient seen and examined in ICU with nursing staff at bedside. Patient is slightly more somnolent today he is arousable though. He is answering questions. His pain medications were adjusted yesterday and will be decreased further today. He denies any shortness of breath. The patient states his pain is well-controlled. He was out of the bed to the chair today. He is occasionally coughing productive of sputum. He states he is using his incentive spirometer. Objective - Vital Signs Vital signs: Vital Signs Temp 98.2 F 08/13/16 08:00 Pulse 91 08/13/16 12:10 Resp 27 H 08/13/16 11:00 BP 110/72 08/13/16 11:00 Pulse Ox 97 08/13/16 11:00 Intake & Output 08/12/16 08/13/16 08/13/16 17:59 06:59 18:59 Intake Total 400 Output Total 525 Balance -125 Weight Intake: IV cardiac output injectate Intake, IV Titration 160 Amount Insulin Regular 100 unit In Sodium Chloride 0.9% 100 ml @ Per Protocol IV .Q0M JULIANE Rx#:[id number] Lactated Ringers 1,000 ml 90 @ 20 mls/hr IV .Q24H JULIANE Rx#:[id number] Milrinone-D5w Pmx 20 mg In Dextrose/Water 1 100ml .bag @ 0.2 MCG/KG/MIN 5.1 mls/hr IV .[id number] JULIANE Rx#:[id number] Nitroglycerin-D5w Pmx 50 mg In Dextrose/Water 1 250ml.bag @ 5 MCG/MIN 1.5 mls/hr IV .Q24H JULIANE Rx#: [id number] Norepinephrine 16 mg In Sodium Chloride 0.9% 250 ml @ Titrate IV .Q0M JULIANE Rx#:[id number] Sodium Chloride 0.9% 1, 70 000 ml @ 20 mls/hr IV . Q24H JULIANE Rx#:[id number] Oral 240 Output: Chest Tube Drainage Chest Tube Left Lateral Chest Chest Tube Mediastinal Chest Tube Right Lateral Chest Drainage Left Calf Urine 525 Other: Voiding Method Urinal # Voids ABP, PAP, CO, CI - Last Documented Arterial Blood Pressure 88/52 Pulmonary Artery Pressure 31/15 Cardiac Output 7.2 Cardiac Index 3.6 - Exam Gen.: Alert and oriented x 3, NAD Cardiovascular: Regular rate and rhythm, S1/S2 Lungs: Diminished breath sounds bilaterally with scattered crackles Abdomen: Soft nontender nondistended positive bowel sounds Extremities: + edema - Labs CBC & Chem 7: 08/13/16 04:30 08/13/16 04:30 Labs: Abnormal Lab Results - Last 24 Hours (Table) 08/12/16 08/12/16 08/13/16 Range/Units 16:17 20:51 04:30 WBC 12.5 H (3.8-10.6) k/uL RBC 2.72 L (4.30-5.90) m/uL Hgb 8.5 L (13.0-17.5) gm/dL Hct 26.4 L (39.0-53.0) % Neutrophils # 10.7 H (1.3-7.7) k/uL BUN (9-20) mg/dL Glucose (74-99) mg/dL POC Glucose (mg/dL) 140 H 134 H (75-99) mg/dL Calcium (8.4-10.2) mg/dL Total Protein (6.3-8.2) g/dL Albumin (3.5-5.0) g/dL 08/13/16 Range/Units 04:30 WBC (3.8-10.6) k/uL RBC (4.30-5.90) m/uL Hgb (13.0-17.5) gm/dL Hct (39.0-53.0) % Neutrophils # (1.3-7.7) k/uL BUN 35 H (9-20) mg/dL Glucose 167 H (74-99) mg/dL POC Glucose (mg/dL) (75-99) mg/dL Calcium 8.3 L (8.4-10.2) mg/dL Total Protein 4.6 L (6.3-8.2) g/dL Albumin 2.7 L (3.5-5.0) g/dL Assessment and Plan Plan: Acute exacerbation of COPD Tracheobronchitis Active tobacco abuse Emphysema Coronary artery disease s/p CABG NSTEMI Obesity Hypertension Dyslipidemia History of prior SC Maintain saturation greater than equal to 88% Bronchodilators and Pulmicort Solu-Medrol 30mg Q12 hours - will change to PO Prednisone in 24-48 hours depending on how the patient does Continue Singulair DC Insulin drip, begin sliding scale coverage DC Fentanyl IV, Begin patient's home Oxycodone dose DC Morphine and [place]. Dr. Bradshaw has been consulted for pain management Pepcid Smoking cessation is highly recommended Incentive spirometry and pulmonary hygiene PT and OT, OOB as able
[2016-08-13 17:33] LABS: Glucose,Whole Blood 150 mg/dL (75-99)
[2016-08-13 20:28] LABS: Glucose,Whole Blood 180 mg/dL (75-99)
[2016-08-13] MEDS: SENNOSIDES-DOCUSATE SODIUM 1 EACH TAB PO SCH (21:37)
[2016-08-13] MEDS: MAGNESIUM SULFATE-D5W PMX 1 GM in DEXTROSE/WATER 1 100ML.BAG IVPB SCH ×2 (21:37→22:33)
--- NOTE | 2016-08-13 21:46 | PN ---
CHIEF COMPLAINT: Status post CABG. HISTORY OF PRESENT ILLNESS: The gentleman is slowly getting better. Breathing is a little bit improved and some of his chest tube is being removed. PHYSICAL EXAMINATION: Color is fairly good and chest demonstrates breath sounds in both sides. IMPRESSIONS: 1. Status post coronary artery bypass graft. 2. Chronic obstructive pulmonary disease. PLAN: No change in program.
[2016-08-14 04:59] LABS: Basophils % (A) 0 %; CH 31.5; CHCM 32.8; Eosinophils # (A) 0.4 k/uL (0-0.7); Eosinophils % (A) 4 %; HDW 2.12; HGB 8.3 gm/dL (13.0-17.5); Luc # (Auto) 0.15; Luc % (Auto) 2; Lymphocytes # (A) 2.7 k/uL (1.0-4.8); Lymphocytes % (A) 27 %; MCH 30.9 pg (25.0-35.0); MCV 96.5 fL (80.0-100.0); Mean Platelet Volume 8.3; Monocytes # (A) 0.5 k/uL (0-1.0); Monocytes % (A) 5 %; Neutrophils # (A) 6.2 k/uL (1.3-7.7); Neutrophils % (A) 62 %; RBC 2.69 m/uL (4.30-5.90); RDW 14.1 % (11.5-15.5); WBC (Perox) 10.33
[2016-08-14 05:34] LABS: ALT 41 U/L (21-72); AST 28 U/L (17-59); Alkaline Phosphatase 38 U/L (38-126); Anion Gap 3 mmol/L; Blood Urea Nitrogen 32 mg/dL (9-20); Calcium 8.1 mg/dL (8.4-10.2); Carbon Dioxide 31 mmol/L (22-30); Chloride 104 mmol/L (98-107); Glucose 124 mg/dL (74-99); Non-African American GFR(MDRD) >60 (>60 ml/min/1.73 sqM); Potassium 4.4 mmol/L (3.5-5.1); Sodium 138 mmol/L (137-145); Total Bilirubin 0.4 mg/dL (0.2-1.3); Total Protein 4.4 g/dL (6.3-8.2)
[2016-08-14] MEDS: KETOROLAC 30 MG/ML 1 ML VIAL IVP SCH ×3 (06:27→17:30)
[2016-08-14 07:20] LABS: Glucose,Whole Blood 222 mg/dL (75-99)
--- NOTE | 2016-08-14 07:36 | P.PN ---
Progress Note - Text Request received to reevaluate for pain medication. Note that I discuss case with ICU nurse yesterday. Patient on oxycodone 15 4 times a day and would continue that regimen. With regard to rehab efforts, patient already on PT and OT, per cardiac surgery protocol. Would continue that.
[2016-08-14] MEDS: BUDESONIDE 0.5 MG/2 ML NEBU INHALATION SCH ×2 (08:34→19:01)
[2016-08-14] MEDS: IPRATROPIUM-ALBUTEROL 3 ML NEB INHALATION SCH ×5 (08:34→19:01)
[2016-08-14] MEDS: METOPROLOL TARTRATE 25 MG TAB PO SCH ×4 (08:40→18:30)
[2016-08-14] MEDS: INSULIN LISPRO (humaLOG) 300 UNIT/3 ML VIAL SQ SCH ×4 (08:41→20:18)
[2016-08-14] MEDS: HEPARIN SODIUM,PORCINE 5,000 UNIT/ML 1 ML VIAL SQ SCH ×2 (08:42→16:32)
[2016-08-14] MEDS: PANTOPRAZOLE 40 MG TABLET PO SCH (08:42)
[2016-08-14] MEDS: ATORVASTATIN 40 MG TAB PO SCH (08:42)
[2016-08-14] MEDS: ASPIRIN 325 MG TAB PO SCH (08:42)
[2016-08-14] MEDS: CLOPIDOGREL 75 MG TAB PO SCH (08:43)
[2016-08-14] MEDS: MUPIROCIN 2% OINT 22 GM TUBE NASAL SCH ×2 (08:43→20:13)
[2016-08-14] MEDS ORDERED: methylPREDNISolone SOD SUCCI 40 MG/ML 1 ML VIAL IV SCH (09:00)
--- NOTE | 2016-08-14 09:22 | XR ---
EXAMINATION TYPE: XR chest 1V portable DATE OF EXAM: 08/14/2016 6:46 AM COMPARISON: 08/14/2016 HISTORY: Chest tube removal TECHNIQUE: Single frontal view of the chest is obtained. FINDINGS: Diffuse subcutaneous emphysema on the left and mild changes on the right are stable. There are subsegmental infiltrate greater on the left with small left effusion and tiny right effusion. No sizable pneumothorax seen on today's exam. IMPRESSION: 1. Postoperative changes with basilar consolidation which may be related to atelectasis and tiny bila teral effusions 2. No sizable pneumothorax post chest tube mobile. 3. Subcutaneous emphysema
--- NOTE | 2016-08-14 09:44 | P.PN ---
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 Hypertension. Hyperlipidemia. Tobacco abuse with severe emphysematous changes in both lungs. Mild mitral valve regurgitation. POD #4 triple coronary artery bypass grafting using the left internal mammary artery to the left anterior descending artery, reverse saphenous vein graft from the aorta to the diagonal artery, reverse saphenous vein graft from the aorta to the posterior descending artery. Endoscopic harvesting of the left greater saphenous vein from groin to below knee level. Intraoperative transesophageal echocardiogram and epi-aortic scanning. Intraoperative graft flow measurements. Patient currently sitting up in a recliner in no apparent distress. Much more calm, states his pain is better controlled. Objective - Vital Signs Vital signs: Vital Signs Temp 97.7 F 08/14/16 04:00 Pulse 100 08/14/16 08:46 Resp 16 08/14/16 07:00 BP 116/72 08/14/16 07:00 Pulse Ox 95 08/14/16 06:00 Intake & Output 08/13/16 08/14/16 08/14/16 18:59 06:59 18:59 Intake Total 520 400 Output Total 925 1250 Balance -405 -850 Weight 93.5 kg Intake: Intake, IV Titration 160 200 Amount Lactated Ringers 1,000 ml 90 @ 20 mls/hr IV .Q24H [facility] Rx#:[id number] Magnesium Sulfate-D5w Pmx 200 1 gm In Dextrose/Water 1 100ml.bag @ 100 mls/hr IVPB Q1H JUL[facility]E Rx#: [id number] Sodium Chloride 0.9% 1, 70 000 ml @ 20 mls/hr IV . Q24H JUL[facility] Rx#:[id number] Oral 360 200 Output: Drainage 125 Left Calf 125 Urine 925 1125 Other: Voiding Method Urinal Urinal # Bowel Movements 1 ABP, PAP, CO, CI - Last Documented Arterial Blood Pressure 88/52 Pulmonary Artery Pressure 31/15 Cardiac Output 7.2 Cardiac Index 3.6 - Constitutional General appearance: Present: cooperative, no acute distress - Respiratory Details: Lungs sounds diminished bilaterally. Respirations even, nonlabored. Currently on 6 L nasal cannula. To achieve 2500 mL on incentive spirometry. Effective cough with productive yellowish sputum. - Cardiovascular Details: S1, S2 present. Regular rate and rhythm, normal sinus rhythm on telemetry with occasional PVCs. Chest stable. Heart hugger placed patient demonstrating appropriate use. Teds, SCDs present. Ventricular epicardial pacemaker wire present but capped. - Gastrointestinal Gastrointestinal Comment(s): Abdomen soft, nontender, nondistended. Active bowel sounds 4 quadrants. Tolerating diet. - Genitourinary Genitourinary Comment(s): Continues to void clear yellow urine per urinal. - Integumentary Integumentary Comment(s): Anterior chest wall covered with dry intact dressing. Left lower extremity EVH site well approximated with SOSA drain with minimal serous fluid drainage. - Musculoskeletal Musculoskeletal: Present: gait normal, strength equal bilaterally - Psychiatric Psychiatric: Present: A&O x's 3, appropriate affect, intact judgment & insight - Labs CBC & Chem 7: 08/14/16 04:29 08/14/16 04:29 Labs: Abnormal Lab Results - Last 24 Hours (Table) 08/13/16 08/13/16 08/14/16 Range/Units 17:32 20:27 04:29 RBC 2.69 L (4.30-5.90) m/uL Hgb 8.3 L (13.0-17.5) gm/dL Hct 26.0 L (39.0-53.0) % Carbon Dioxide (22-30) mmol/L BUN (9-20) mg/dL Glucose (74-99) mg/dL POC Glucose (mg/dL) 150 H 180 H (75-99) mg/dL Calcium (8.4-10.2) mg/dL Total Protein (6.3-8.2) g/dL Albumin (3.5-5.0) g/dL 08/14/16 08/14/16 Range/Units 04:29 07:15 RBC (4.30-5.90) m/uL Hgb (13.0-17.5) gm/dL Hct (39.0-53.0) % Carbon Dioxide 31 H (22-30) mmol/L BUN 32 H (9-20) mg/dL Glucose 124 H (74-99) mg/dL POC Glucose (mg/dL) 222 H (75-99) mg/dL Calcium 8.1 L (8.4-10.2) mg/dL Total Protein 4.4 L (6.3-8.2) g/dL Albumin 2.4 L (3.5-5.0) g/dL - Imaging and Cardiology Chest x-ray: report reviewed, image reviewed Assessment and Plan (1) COPD (chronic obstructive pulmonary disease) Status: Acute (2) Hypertension Status: Acute (3) Hyperlipidemia Status: Acute (4) Non-STEMI (non-ST elevated myocardial infarction) Status: Acute Plan: 1. Continue ASA, statin, BB, heparin, Plavix. 2. Continue aggressive pain control with recommendations from Dr. Bradshaw 3. Will DC epicardial ventricular pacemaker wire 4. Will DC Ativan, Seroquel, Solu-Medrol. 5. Increase activity, ambulate in hallway with minimum 4 times daily. Physical therapy to follow. 6. Wean O2 as tolerated 7. Will need LifeVest at discharge 8. GI/DVT prophylaxis 9. Will need rehab at discharge as patient is homeless without any support system in place. Discharge planning per case management/social work. 10. Transfer out of ICU to 6 E. selective care today 11. Anticipate discharge soon. Time with Patient: Greater than 30
[2016-08-14] MEDS: SODIUM CHLORIDE 0.9% 1,000 ML IV SCH (09:59)
[2016-08-14 10:42] LABS: Glucose,Whole Blood 95 mg/dL (75-99)
[2016-08-14 11:18] LABS: ABG Base Excess 2.8 mmol/L; ABG HCO3 26 mmol/L (21-25); ABG Oxygen Saturation 99.9 % (94-97); ABG PCO2 39 mmHg (35-45); ABG PH 7.45 (7.35-7.45); ABG PO2 250 mmHg (83-108); ABG TCO2 28 mmol/L (19-24)
[2016-08-14 11:20] LABS: ABG HCO3 27 mmol/L (21-25); ABG Oxygen Saturation 95.7 % (94-97); ABG PCO2 55 mmHg (35-45); ABG PH 7.32 (7.35-7.45); ABG PO2 88 mmHg (83-108); ABG TCO2 29 mmol/L (19-24)
[2016-08-14 11:21] LABS: ABG Base Excess 1.7 mmol/L; ABG HCO3 28 mmol/L (21-25); ABG PCO2 53 mmHg (35-45); ABG PH 7.33 (7.35-7.45); ABG PO2 241 mmHg (83-108); ABG TCO2 29 mmol/L (19-24)
[2016-08-14 11:22] LABS: ABG Oxygen Saturation 99.8 % (94-97)
[2016-08-14 11:22] LABS: ABG HCO3 25 mmol/L (21-25); ABG PCO2 37 mmHg (35-45); ABG PH 7.45 (7.35-7.45); ABG PO2 244 mmHg (83-108)
[2016-08-14 11:23] LABS: ABG Base Excess 1.9 mmol/L; ABG Oxygen Saturation 99.9 % (94-97); ABG TCO2 27 mmol/L (19-24)
[2016-08-14 11:24] LABS: ABG HCO3 26 mmol/L (21-25); ABG Oxygen Saturation 99.9 % (94-97); ABG PCO2 51 mmHg (35-45); ABG PH 7.33 (7.35-7.45); ABG PO2 297 mmHg (83-108); ABG TCO2 27 mmol/L (19-24)
[2016-08-14 11:25] LABS: ABG Base Excess -1.1 mmol/L; ABG HCO3 27 mmol/L (21-25); ABG PCO2 64 mmHg (35-45); ABG PH 7.25 (7.35-7.45); ABG PO2 73 mmHg (83-108); ABG TCO2 29 mmol/L (19-24)
[2016-08-14 11:26] LABS: ABG Base Excess 0.7 mmol/L; ABG HCO3 25 mmol/L (21-25); ABG Oxygen Saturation 93.8 % (94-97); ABG PCO2 43 mmHg (35-45); ABG PH 7.39 (7.35-7.45); ABG PO2 71 mmHg (83-108); ABG TCO2 27 mmol/L (19-24)
[2016-08-14] MEDS: LOSARTAN 25 MG TAB PO SCH (12:18)
--- NOTE | 2016-08-14 12:22 | P.PN ---
Subjective This patient is status post coronary artery bypass surgery's and denies any symptoms of chest discomfort and shortness of breath. His and is ambulating in the hallway. Patient's vital signs and hemodynamics are reviewed. Objective - Vital Signs Vital signs: Vital Signs Temp 98.2 F 08/14/16 08:00 Pulse 82 08/14/16 11:00 Resp 17 08/14/16 11:48 BP 99/61 08/14/16 11:00 Pulse Ox 94 L 08/14/16 11:00 Intake & Output 08/13/16 08/14/16 08/14/16 18:59 06:59 18:59 Intake Total 520 400 240 Output Total 925 1250 200 Balance -405 -850 40 Weight 93.5 kg Intake: Intake, IV Titration 160 200 Amount Lactated Ringers 1,000 ml 90 @ 20 mls/hr IV .Q24H [facility] Rx#:[id number] Magnesium Sulfate-D5w Pmx 200 1 gm In Dextrose/Water 1 100ml.bag @ 100 mls/hr IVPB Q1H [facility] Rx#: [id number] Sodium Chloride 0.9% 1, 70 000 ml @ 20 mls/hr IV . Q24H [facility] Rx#:[id number] Oral 360 200 240 Output: Drainage 125 Left Calf 125 Urine 925 1125 200 Other: Voiding Method Urinal Urinal Urinal # Voids 1 # Bowel Movements 1 ABP, PAP, CO, CI - Last Documented Arterial Blood Pressure 88/52 Pulmonary Artery Pressure 31/15 Cardiac Output 7.2 Cardiac Index 3.6 - Exam Patient is in no respiratory distress. Vital signs are reviewed. Heart first and second heart sounds are normal. Lungs. Clear to auscultation and percussion. - Labs CBC & Chem 7: 08/14/16 04:29 08/14/16 04:29 Labs: Abnormal Lab Results - Last 24 Hours (Table) 08/10/16 08/10/16 08/10/16 Range/Units 12:26 14:40 15:24 RBC (4.30-5.90) m/uL Hgb (13.0-17.5) gm/dL Hct (39.0-53.0) % ABG pH 7.32 L 7.33 L (7.35-7.45) ABG pCO2 55 H 53 H (35-45) mmHg ABG pO2 250 H 241 H (83-108) mmHg ABG HCO3 26 H 27 H 28 H (21-25) mmol/L ABG Total CO2 28 H 29 H 29 H (19-24) mmol/L ABG O2 Saturation 99.9 H 99.8 H (94-97) % ABG Hematocrit 30 L (34.0-46.0) % ABG Potassium 4.6 H 5.4 H (3.4-4.5) mmol/L Carbon Dioxide (22-30) mmol/L BUN (9-20) mg/dL Glucose (74-99) mg/dL POC Glucose (mg/dL) (75-99) mg/dL Calcium (8.4-10.2) mg/dL Total Protein (6.3-8.2) g/dL Albumin (3.5-5.0) g/dL Arterial Blood Potassium 4.6 H 5.4 H (3.4-4.5) mmol/L 08/10/16 08/10/16 08/10/16 Range/Units 15:48 16:20 17:11 RBC (4.30-5.90) m/uL Hgb (13.0-17.5) gm/dL Hct (39.0-53.0) % ABG pH 7.33 L 7.25 L (7.35-7.45) ABG pCO2 51 H 64 H (35-45) mmHg ABG pO2 244 H 297 H 73 L (83-108) mmHg ABG HCO3 26 H 27 H (21-25) mmol/L ABG Total CO2 27 H 27 H 29 H (19-24) mmol/L ABG O2 Saturation 99.9 H 99.9 H 91.0 L (94-97) % ABG Hematocrit 31 L 32 L (34.0-46.0) % ABG Potassium 4.7 H 5.2 H (3.4-4.5) mmol/L Carbon Dioxide (22-30) mmol/L BUN (9-20) mg/dL Glucose (74-99) mg/dL POC Glucose (mg/dL) (75-99) mg/dL Calcium (8.4-10.2) mg/dL Total Protein (6.3-8.2) g/dL Albumin (3.5-5.0) g/dL Arterial Blood Potassium 4.7 H 5.2 H (3.4-4.5) mmol/L 08/10/16 08/13/16 08/13/16 Range/Units 17:32 17:32 20:27 RBC (4.30-5.90) m/uL Hgb (13.0-17.5) gm/dL Hct (39.0-53.0) % ABG pH (7.35-7.45) ABG pCO2 (35-45) mmHg ABG pO2 71 L (83-108) mmHg ABG HCO3 (21-25) mmol/L ABG Total CO2 27 H (19-24) mmol/L ABG O2 Saturation 93.8 L (94-97) % ABG Hematocrit (34.0-46.0) % ABG Potassium (3.4-4.5) mmol/L Carbon Dioxide (22-30) mmol/L BUN (9-20) mg/dL Glucose (74-99) mg/dL POC Glucose (mg/dL) 150 H 180 H (75-99) mg/dL Calcium (8.4-10.2) mg/dL Total Protein (6.3-8.2) g/dL Albumin (3.5-5.0) g/dL Arterial Blood Potassium (3.4-4.5) mmol/L 08/14/16 08/14/16 08/14/16 Range/Units 04:29 04:29 07:15 RBC 2.69 L (4.30-5.90) m/uL Hgb 8.3 L (13.0-17.5) gm/dL Hct 26.0 L (39.0-53.0) % ABG pH (7.35-7.45) ABG pCO2 (35-45) mmHg ABG pO2 (83-108) mmHg ABG HCO3 (21-25) mmol/L ABG Total CO2 (19-24) mmol/L ABG O2 Saturation (94-97) % ABG Hematocrit (34.0-46.0) % ABG Potassium (3.4-4.5) mmol/L Carbon Dioxide 31 H (22-30) mmol/L BUN 32 H (9-20) mg/dL Glucose 124 H (74-99) mg/dL POC Glucose (mg/dL) 222 H (75-99) mg/dL Calcium 8.1 L (8.4-10.2) mg/dL Total Protein 4.4 L (6.3-8.2) g/dL Albumin 2.4 L (3.5-5.0) g/dL Arterial Blood Potassium (3.4-4.5) mmol/L Assessment and Plan Plan: This patient is stable status post coronary artery bypass surgery. Continue the current medications.
--- NOTE | 2016-08-14 13:07 | P.PN ---
Subjective Principal diagnosis: CAD Patient seen and examined in the ICU with nursing staff at bedside. Patient is sitting up in the chair. He states his breathing is doing very well. He is down 5 L nasal cannula. He denies fevers, chills, cough. He states his pain is well-controlled. Objective - Vital Signs Vital signs: Vital Signs Temp 98.6 F 08/14/16 12:00 Pulse 77 08/14/16 13:00 Resp 16 08/14/16 13:00 BP 99/64 08/14/16 12:00 Pulse Ox 93 L 08/14/16 13:00 Intake & Output 08/13/16 08/14/16 08/14/16 18:59 06:59 18:59 Intake Total 520 400 240 Output Total 925 1250 400 Balance -405 -850 -160 Weight 93.5 kg Intake: Intake, IV Titration 160 200 Amount Lactated Ringers 1,000 ml 90 @ 20 mls/hr IV .Q24H [facility] Rx#:[id number] Magnesium Sulfate-D5w Pmx 200 1 gm In Dextrose/Water 1 100ml.bag @ 100 mls/hr IVPB Q1H [facility] Rx#: [id number] Sodium Chloride 0.9% 1, 70 000 ml @ 20 mls/hr IV . Q24H [facility] Rx#:[id number] Oral 360 200 240 Output: Drainage 125 Left Calf 125 Urine 925 1125 400 Other: Voiding Method Urinal Urinal Urinal # Voids 1 # Bowel Movements 1 ABP, PAP, CO, CI - Last Documented Arterial Blood Pressure 88/52 Pulmonary Artery Pressure 31/15 Cardiac Output 7.2 Cardiac Index 3.6 - Exam Gen.: Alert and oriented x 3, NAD Cardiovascular: Regular rate and rhythm, S1/S2 Lungs: Diminished breath sounds bilaterally with scattered crackles Abdomen: Soft nontender nondistended positive bowel sounds Extremities: + edema - Labs CBC & Chem 7: 08/14/16 04:29 08/14/16 04:29 Labs: Abnormal Lab Results - Last 24 Hours (Table) 08/10/16 08/10/16 08/10/16 Range/Units 12:26 14:40 15:24 RBC (4.30-5.90) m/uL Hgb (13.0-17.5) gm/dL Hct (39.0-53.0) % ABG pH 7.32 L 7.33 L (7.35-7.45) ABG pCO2 55 H 53 H (35-45) mmHg ABG pO2 250 H 241 H (83-108) mmHg ABG HCO3 26 H 27 H 28 H (21-25) mmol/L ABG Total CO2 28 H 29 H 29 H (19-24) mmol/L ABG O2 Saturation 99.9 H 99.8 H (94-97) % ABG Hematocrit 30 L (34.0-46.0) % ABG Potassium 4.6 H 5.4 H (3.4-4.5) mmol/L Carbon Dioxide (22-30) mmol/L BUN (9-20) mg/dL Glucose (74-99) mg/dL POC Glucose (mg/dL) (75-99) mg/dL Calcium (8.4-10.2) mg/dL Total Protein (6.3-8.2) g/dL Albumin (3.5-5.0) g/dL Arterial Blood Potassium 4.6 H 5.4 H (3.4-4.5) mmol/L 08/10/16 08/10/16 08/10/16 Range/Units 15:48 16:20 17:11 RBC (4.30-5.90) m/uL Hgb (13.0-17.5) gm/dL Hct (39.0-53.0) % ABG pH 7.33 L 7.25 L (7.35-7.45) ABG pCO2 51 H 64 H (35-45) mmHg ABG pO2 244 H 297 H 73 L (83-108) mmHg ABG HCO3 26 H 27 H (21-25) mmol/L ABG Total CO2 27 H 27 H 29 H (19-24) mmol/L ABG O2 Saturation 99.9 H 99.9 H 91.0 L (94-97) % ABG Hematocrit 31 L 32 L (34.0-46.0) % ABG Potassium 4.7 H 5.2 H (3.4-4.5) mmol/L Carbon Dioxide (22-30) mmol/L BUN (9-20) mg/dL Glucose (74-99) mg/dL POC Glucose (mg/dL) (75-99) mg/dL Calcium (8.4-10.2) mg/dL Total Protein (6.3-8.2) g/dL Albumin (3.5-5.0) g/dL Arterial Blood Potassium 4.7 H 5.2 H (3.4-4.5) mmol/L 08/10/16 08/13/16 08/13/16 Range/Units 17:32 17:32 20:27 RBC (4.30-5.90) m/uL Hgb (13.0-17.5) gm/dL Hct (39.0-53.0) % ABG pH (7.35-7.45) ABG pCO2 (35-45) mmHg ABG pO2 71 L (83-108) mmHg ABG HCO3 (21-25) mmol/L ABG Total CO2 27 H (19-24) mmol/L ABG O2 Saturation 93.8 L (94-97) % ABG Hematocrit (34.0-46.0) % ABG Potassium (3.4-4.5) mmol/L Carbon Dioxide (22-30) mmol/L BUN (9-20) mg/dL Glucose (74-99) mg/dL POC Glucose (mg/dL) 150 H 180 H (75-99) mg/dL Calcium (8.4-10.2) mg/dL Total Protein (6.3-8.2) g/dL Albumin (3.5-5.0) g/dL Arterial Blood Potassium (3.4-4.5) mmol/L 08/14/16 08/14/16 08/14/16 Range/Units 04:29 04:29 07:15 RBC 2.69 L (4.30-5.90) m/uL Hgb 8.3 L (13.0-17.5) gm/dL Hct 26.0 L (39.0-53.0) % ABG pH (7.35-7.45) ABG pCO2 (35-45) mmHg ABG pO2 (83-108) mmHg ABG HCO3 (21-25) mmol/L ABG Total CO2 (19-24) mmol/L ABG O2 Saturation (94-97) % ABG Hematocrit (34.0-46.0) % ABG Potassium (3.4-4.5) mmol/L Carbon Dioxide 31 H (22-30) mmol/L BUN 32 H (9-20) mg/dL Glucose 124 H (74-99) mg/dL POC Glucose (mg/dL) 222 H (75-99) mg/dL Calcium 8.1 L (8.4-10.2) mg/dL Total Protein 4.4 L (6.3-8.2) g/dL Albumin 2.4 L (3.5-5.0) g/dL Arterial Blood Potassium (3.4-4.5) mmol/L Assessment and Plan Plan: Acute exacerbation of COPD Tracheobronchitis Active tobacco abuse Emphysema Coronary artery disease s/p CABG NSTEMI Obesity Hypertension Dyslipidemia History of prior [place] Maintain saturation greater than equal to 88% Bronchodilators and Pulmicort Continue Singulair DC Insulin drip, begin sliding scale coverage Continue pain control Dr. Bradshaw has been consulted for pain management Pepcid Smoking cessation is highly recommended Incentive spirometry and pulmonary hygiene PT and OT, OOB as able
--- NOTE | 2016-08-14 14:07 | PN ---
CHIEF COMPLAINT: Status post CABG. HISTORY OF PRESENT ILLNESS: The gentleman is doing well and will probably be moved out of the unit today. He denies any pain, shortness of breath, fever and chills, etc. PHYSICAL EXAMINATION: Breath sounds are heard on both sides and cardiac exam is unremarkable. IMPRESSION: 1. Status post coronary artery bypass graft. 2. Chronic obstructive pulmonary disease. 3. Hypertension. PLAN: Probably move out of the unit today.
[2016-08-14 16:52] LABS: Glucose,Whole Blood 137 mg/dL (75-99)
[2016-08-14] MEDS ORDERED: LORazepam 2 MG/ML SYRINGE IV STA (19:42)
[2016-08-14] MEDS: SENNOSIDES-DOCUSATE SODIUM 1 EACH TAB PO SCH (20:13)
[2016-08-14 20:19] LABS: Glucose,Whole Blood 114 mg/dL (75-99)
[2016-08-15] MEDS: HEPARIN SODIUM,PORCINE 5,000 UNIT/ML 1 ML VIAL SQ SCH ×4 (00:26→23:33)
[2016-08-15] MEDS: KETOROLAC 30 MG/ML 1 ML VIAL IVP SCH ×3 (00:27→12:30)
[2016-08-15] MEDS: METOPROLOL TARTRATE 25 MG TAB PO SCH ×5 (00:27→23:33)
[2016-08-15 06:03] LABS: CH 31.5; CHCM 32.5; HCT 26.1 % (39.0-53.0); HDW 2.14; HGB 8.5 gm/dL (13.0-17.5); MCH 31.7 pg (25.0-35.0); MCHC 32.6 g/dL (31.0-37.0); MCV 97.3 fL (80.0-100.0); Mean Platelet Volume 8.2; RBC 2.68 m/uL (4.30-5.90); RDW 14.1 % (11.5-15.5); WBC 10.6 k/uL (3.8-10.6)
[2016-08-15] MEDS: INSULIN LISPRO (humaLOG) 300 UNIT/3 ML VIAL SQ SCH ×4 (06:30→20:23)
[2016-08-15 06:31] LABS: Glucose,Whole Blood 94 mg/dL (75-99)
[2016-08-15] MEDS: PANTOPRAZOLE 40 MG TABLET PO SCH (06:31)
[2016-08-15 06:32] LABS: Anion Gap 4 mmol/L; Blood Urea Nitrogen 26 mg/dL (9-20); Calcium 8.4 mg/dL (8.4-10.2); Carbon Dioxide 32 mmol/L (22-30); Chloride 103 mmol/L (98-107); Glucose 114 mg/dL (74-99); Non-African American GFR(MDRD) >60 (>60 ml/min/1.73 sqM); Potassium 4.4 mmol/L (3.5-5.1); Sodium 139 mmol/L (137-145)
[2016-08-15] MEDS: IPRATROPIUM-ALBUTEROL 3 ML NEB INHALATION SCH ×4 (08:39→20:50)
[2016-08-15] MEDS: BUDESONIDE 0.5 MG/2 ML NEBU INHALATION SCH ×2 (08:39→20:50)
--- NOTE | 2016-08-15 09:58 | XR ---
EXAMINATION TYPE: XR chest 2V DATE OF EXAM: 08/15/2016 6:15 AM COMPARISON: Prior chest x-ray 14 August 2016 HISTORY: Postop TECHNIQUE: Frontal and lateral views of the chest are obtained. FINDINGS: There is no pneumothorax seen. The cardiac silhouette size is stable and enlarged. Extens ray subcutaneous emphysema is again noted. Patient is rotated. There are overlying cardiac leads. Pat bernabe basilar increased density is again seen, right hemidiaphragm is again elevated. Patient is post m edian sternotomy. Apical scarring is again noted on the right. Minimal blunting of the posterior cost ophrenic angle noted on the left. IMPRESSION: Satisfactory postoperative chest x-ray. Basilar atelectasis, minimal left pleural effusi on.
[2016-08-15] MEDS: ATORVASTATIN 40 MG TAB PO SCH (10:19)
[2016-08-15] MEDS: ASPIRIN 325 MG TAB PO SCH (10:19)
[2016-08-15] MEDS: MUPIROCIN 2% OINT 22 GM TUBE NASAL SCH ×2 (10:20→20:23)
[2016-08-15] MEDS: CLOPIDOGREL 75 MG TAB PO SCH (10:20)
--- NOTE | 2016-08-15 11:37 | P.PN ---
<Ryann Bishop - Last Filed: 08/15/16 11:36> Subjective Principal diagnosis: Double vessel coronary artery disease with severe left ventricular dysfunction, status post prior myocardial infarction and stenting to his right coronary artery and circumflex system around 4 years ago. Hypertension. Hyperlipidemia. Tobacco abuse with severe emphysematous changes in both lungs. Mild mitral valve regurgitation. POD #5 triple coronary artery bypass grafting using the left internal mammary artery to the left anterior descending artery, reverse saphenous vein graft from the aorta to the diagonal artery, reverse saphenous vein graft from the aorta to the posterior descending artery. Endoscopic harvesting of the left greater saphenous vein from groin to below knee level. Intraoperative transesophageal echocardiogram and epi-aortic scanning. Intraoperative graft flow measurements. Patient currently sitting up in bed in no apparent distress. Denies any complaints currently. Objective - Vital Signs Vital signs: Vital Signs Temp 97.2 F L 08/15/16 04:00 Pulse 88 08/15/16 04:00 Resp 18 08/15/16 04:00 BP 118/74 08/15/16 04:00 Pulse Ox 93 L 08/15/16 04:00 Intake & Output 08/14/16 08/15/16 08/15/16 18:59 06:59 18:59 Intake Total 240 640 Output Total 950 1640 Balance -710 -1000 Weight 93.5 kg 89.7 kg Intake: Intake, IV Titration 160 Amount Sodium Chloride 0.9% 1, 160 000 ml @ 20 mls/hr IV . Q24H [facility] Rx#:[id number] Oral 240 480 Output: Drainage 140 Left Calf 140 Urine 950 1500 Other: Voiding Method Urinal Urinal # Voids 1 2 ABP, PAP, CO, CI - Last Documented Arterial Blood Pressure 88/52 Pulmonary Artery Pressure 31/15 Cardiac Output 7.2 Cardiac Index 3.6 - Constitutional General appearance: Present: cooperative, no acute distress - Respiratory Details: Lungs sounds diminished bilaterally. Respirations even, nonlabored. Currently on room air with oxygen saturation of 94%. Able to achieve 2250 mL on his incentive spirometry. Effective cough with productive yellow sputum. - Cardiovascular Details: S1, S2 present. Regular rate and rhythm, normal sinus rhythm on telemetry. No events noted on monitor last night. Chest stable. Heart hugger in place with patient demonstrating appropriate use. No edema present. Teds, SCDs present. - Gastrointestinal Gastrointestinal Comment(s): Abdomen soft, nontender, nondistended. Active bowel sounds 4 quadrants. Tolerating diet. - Genitourinary Genitourinary Comment(s): Continues to void clear, yellow urine per urinal. - Integumentary Integumentary Comment(s): Anterior chest incision covered with dry intact dressing. Left lower extremity EVH site well approximated with SOSA drain present, minimal serosanguineous drainage. - Musculoskeletal Musculoskeletal: Present: gait normal, strength equal bilaterally - Psychiatric Psychiatric: Present: A&O x's 3, appropriate affect, intact judgment & insight - Allied health notes Allied health notes reviewed: social work - Labs CBC & Chem 7: 08/15/16 05:52 08/15/16 05:52 Labs: Abnormal Lab Results - Last 24 Hours (Table) 08/10/16 08/10/16 08/10/16 Range/Units 12:26 14:40 15:24 RBC (4.30-5.90) m/uL Hgb (13.0-17.5) gm/dL Hct (39.0-53.0) % ABG pH 7.32 L 7.33 L (7.35-7.45) ABG pCO2 55 H 53 H (35-45) mmHg ABG pO2 250 H 241 H (83-108) mmHg ABG HCO3 26 H 27 H 28 H (21-25) mmol/L ABG Total CO2 28 H 29 H 29 H (19-24) mmol/L ABG O2 Saturation 99.9 H 99.8 H (94-97) % ABG Hematocrit 30 L (34.0-46.0) % ABG Potassium 4.6 H 5.4 H (3.4-4.5) mmol/L Carbon Dioxide (22-30) mmol/L BUN (9-20) mg/dL Glucose (74-99) mg/dL POC Glucose (mg/dL) (75-99) mg/dL Arterial Blood Potassium 4.6 H 5.4 H (3.4-4.5) mmol/L 08/10/16 08/10/16 08/10/16 Range/Units 15:48 16:20 17:11 RBC (4.30-5.90) m/uL Hgb (13.0-17.5) gm/dL Hct (39.0-53.0) % ABG pH 7.33 L 7.25 L (7.35-7.45) ABG pCO2 51 H 64 H (35-45) mmHg ABG pO2 244 H 297 H 73 L (83-108) mmHg ABG HCO3 26 H 27 H (21-25) mmol/L ABG Total CO2 27 H 27 H 29 H (19-24) mmol/L ABG O2 Saturation 99.9 H 99.9 H 91.0 L (94-97) % ABG Hematocrit 31 L 32 L (34.0-46.0) % ABG Potassium 4.7 H 5.2 H (3.4-4.5) mmol/L Carbon Dioxide (22-30) mmol/L BUN (9-20) mg/dL Glucose (74-99) mg/dL POC Glucose (mg/dL) (75-99) mg/dL Arterial Blood Potassium 4.7 H 5.2 H (3.4-4.5) mmol/L 08/10/16 08/14/16 08/14/16 Range/Units 17:32 16:50 20:17 RBC (4.30-5.90) m/uL Hgb (13.0-17.5) gm/dL Hct (39.0-53.0) % ABG pH (7.35-7.45) ABG pCO2 (35-45) mmHg ABG pO2 71 L (83-108) mmHg ABG HCO3 (21-25) mmol/L ABG Total CO2 27 H (19-24) mmol/L ABG O2 Saturation 93.8 L (94-97) % ABG Hematocrit (34.0-46.0) % ABG Potassium (3.4-4.5) mmol/L Carbon Dioxide (22-30) mmol/L BUN (9-20) mg/dL Glucose (74-99) mg/dL POC Glucose (mg/dL) 137 H 114 H (75-99) mg/dL Arterial Blood Potassium (3.4-4.5) mmol/L 08/15/16 08/15/16 Range/Units 05:52 05:52 RBC 2.68 L (4.30-5.90) m/uL Hgb 8.5 L (13.0-17.5) gm/dL Hct 26.1 L (39.0-53.0) % ABG pH (7.35-7.45) ABG pCO2 (35-45) mmHg ABG pO2 (83-108) mmHg ABG HCO3 (21-25) mmol/L ABG Total CO2 (19-24) mmol/L ABG O2 Saturation (94-97) % ABG Hematocrit (34.0-46.0) % ABG Potassium (3.4-4.5) mmol/L Carbon Dioxide 32 H (22-30) mmol/L BUN 26 H (9-20) mg/dL Glucose 114 H (74-99) mg/dL POC Glucose (mg/dL) (75-99) mg/dL Arterial Blood Potassium (3.4-4.5) mmol/L - Imaging and Cardiology Chest x-ray: report reviewed, image reviewed Assessment and Plan (1) COPD (chronic obstructive pulmonary disease) Status: Acute (2) Hypertension Status: Acute (3) Hyperlipidemia Status: Acute (4) Non-STEMI (non-ST elevated myocardial infarction) Status: Acute Plan: 1. Continue ASA, statin, BB, heparin, Plavix, ARB. 2. Continue aggressive pain control with recommendations from Dr. Bradshaw 3. Increase activity, ambulate in hallway with minimum 4 times daily. Physical therapy to follow. 4. Will need LifeVest at discharge 5. GI/DVT prophylaxis 6. Will need rehab at discharge as patient is homeless without any support system in place. Discharge planning per case management/social work. 7. Anticipate discharge soon. Time with Patient: Greater than 30 <Gino Fregoso - Last Filed: 08/15/16 12:44> Objective - Vital Signs Vital signs: Vital Signs Temp 98.4 F 08/15/16 11:43 Pulse 84 08/15/16 11:43 Resp 18 08/15/16 11:43 BP 112/65 08/15/16 11:43 Pulse Ox 91 L 08/15/16 11:43 Intake & Output 08/14/16 08/15/16 08/15/16 18:59 06:59 18:59 Intake Total 240 640 Output Total 950 1640 Balance -710 -1000 Weight 93.5 kg 89.7 kg Intake: Intake, IV Titration 160 Amount Sodium Chloride 0.9% 1, 160 000 ml @ 20 mls/hr IV . Q24H [facility] Rx#:[id number] Oral 240 480 Output: Drainage 140 Left Calf 140 Urine 950 1500 Other: Voiding Method Urinal Urinal Urinal # Voids 1 2 # Bowel Movements 0 ABP, PAP, CO, CI - Last Documented Arterial Blood Pressure 88/52 Pulmonary Artery Pressure 31/15 Cardiac Output 7.2 Cardiac Index 3.6 - Labs CBC & Chem 7: 08/15/16 05:52 08/15/16 05:52 Labs: Abnormal Lab Results - Last 24 Hours (Table) 08/14/16 08/14/16 08/15/16 Range/Units 16:50 20:17 05:52 RBC 2.68 L (4.30-5.90) m/uL Hgb 8.5 L (13.0-17.5) gm/dL Hct 26.1 L (39.0-53.0) % Carbon Dioxide (22-30) mmol/L BUN (9-20) mg/dL Glucose (74-99) mg/dL POC Glucose (mg/dL) 137 H 114 H (75-99) mg/dL 08/15/16 08/15/16 Range/Units 05:52 11:51 RBC (4.30-5.90) m/uL Hgb (13.0-17.5) gm/dL Hct (39.0-53.0) % Carbon Dioxide 32 H (22-30) mmol/L BUN 26 H (9-20) mg/dL Glucose 114 H (74-99) mg/dL POC Glucose (mg/dL) 198 H (75-99) mg/dL Assessment and Plan Plan: The patient was seen and examined. I agree with the above assessment and plan. Overall he appears to be doing well. He has been ambulating in the hallway without difficulty. Pain control has been a challenge however he appears to be comfortable at this time. His medications were reviewed. His chest x-ray revealed atelectasis. He will be discharged to rehab once a bed becomes available.
[2016-08-15 11:54] LABS: Glucose,Whole Blood 198 mg/dL (75-99)
[2016-08-15] MEDS: LOSARTAN 25 MG TAB PO SCH (12:30)
--- NOTE | 2016-08-15 14:05 | P.PN ---
Subjective Principal diagnosis: Coronary artery disease Patient seen and examined. Patient transferred out of the ICU. He states he is feeling well. He is hopeful to go home soon. He says his pain is well- controlled. He has no shortness of breath, fevers, chills. He is down to 3 L nasal cannula. Objective - Vital Signs Vital signs: Vital Signs Temp 98.4 F 08/15/16 11:43 Pulse 84 08/15/16 11:43 Resp 18 08/15/16 11:43 BP 112/65 08/15/16 11:43 Pulse Ox 91 L 08/15/16 11:43 Intake & Output 08/14/16 08/15/16 08/15/16 18:59 06:59 18:59 Intake Total 240 640 Output Total 950 1640 30 Balance -710 -1000 -30 Weight 93.5 kg 89.7 kg Intake: Intake, IV Titration 160 Amount Sodium Chloride 0.9% 1, 160 000 ml @ 20 mls/hr IV . Q24H [facility] Rx#:[id number] Oral 240 480 Output: Drainage 140 30 Left Calf 140 30 Urine 950 1500 Other: Voiding Method Urinal Urinal Urinal # Voids 1 2 # Bowel Movements 0 ABP, PAP, CO, CI - Last Documented Arterial Blood Pressure 88/52 Pulmonary Artery Pressure 31/15 Cardiac Output 7.2 Cardiac Index 3.6 - Exam Gen.: Alert and oriented x 3, NAD Cardiovascular: Regular rate and rhythm, S1/S2 Lungs: Diminished breath sounds bilaterally Abdomen: Soft nontender nondistended positive bowel sounds Extremities: + edema - Labs CBC & Chem 7: 08/15/16 05:52 08/15/16 05:52 Labs: Abnormal Lab Results - Last 24 Hours (Table) 08/14/16 08/14/16 08/15/16 Range/Units 16:50 20:17 05:52 RBC 2.68 L (4.30-5.90) m/uL Hgb 8.5 L (13.0-17.5) gm/dL Hct 26.1 L (39.0-53.0) % Carbon Dioxide (22-30) mmol/L BUN (9-20) mg/dL Glucose (74-99) mg/dL POC Glucose (mg/dL) 137 H 114 H (75-99) mg/dL 08/15/16 08/15/16 Range/Units 05:52 11:51 RBC (4.30-5.90) m/uL Hgb (13.0-17.5) gm/dL Hct (39.0-53.0) % Carbon Dioxide 32 H (22-30) mmol/L BUN 26 H (9-20) mg/dL Glucose 114 H (74-99) mg/dL POC Glucose (mg/dL) 198 H (75-99) mg/dL Assessment and Plan Plan: Acute exacerbation of COPD Tracheobronchitis Active tobacco abuse Emphysema Coronary artery disease s/p CABG NSTEMI Obesity Hypertension Dyslipidemia History of prior [place] Maintain saturation greater than equal to 88% Bronchodilators and Pulmicort Continue Singulair Continue pain control Dr. Bradshaw has been consulted for pain management Pepcid Smoking cessation is highly recommended Incentive spirometry and pulmonary hygiene PT and OT, OOB as able
--- NOTE | 2016-08-15 14:12 | P.PN ---
Subjective Principal diagnosis: Chest pain This is a 55-year-old gentleman with known history of coronary artery disease, patient underwent angioplasty with stent placement of the right coronary artery and left circumflex artery in 2013, history of hypertension, hyperlipidemia, nicotine dependence, COPD. He presented to the hospital on this occasion with symptoms of shortness of breath so stated cough of productive sputum, green in color. Patient states that he's been experiencing chest pressure and heaviness with associated exertional shortness of breath for the past few months, worsening recently. Patient has been taking several nitroglycerin a day, he states that they relief of symptoms but shortly thereafter symptoms return. This has been going on for a month or more. Patient underwent a cardiac catheterization which revealed critical stenosis involving the diagonal branch and proximal LAD. Moderately significant disease in the mid RCA and mild disease in the circumflex. Severely impaired left ventricular systolic function. Patient is status post coronary artery bypass grafting surgery. He is doing well today, reaching 2500 on his incentive spirometry. Objective - Vital Signs Vital signs: Vital Signs Temp 98.4 F 08/15/16 11:43 Pulse 84 08/15/16 11:43 Resp 18 08/15/16 11:43 BP 112/65 08/15/16 11:43 Pulse Ox 91 L 08/15/16 11:43 Intake & Output 08/14/16 08/15/16 08/15/16 18:59 06:59 18:59 Intake Total 240 640 Output Total 950 1640 30 Balance -710 -1000 -30 Weight 93.5 kg 89.7 kg Intake: Intake, IV Titration 160 Amount Sodium Chloride 0.9% 1, 160 000 ml @ 20 mls/hr IV . Q24H [facility] Rx#:[id number] Oral 240 480 Output: Drainage 140 30 Left Calf 140 30 Urine 950 1500 Other: Voiding Method Urinal Urinal Urinal # Voids 1 2 # Bowel Movements 0 ABP, PAP, CO, CI - Last Documented Arterial Blood Pressure 88/52 Pulmonary Artery Pressure 31/15 Cardiac Output 7.2 Cardiac Index 3.6 - Exam PHYSICAL EXAMINATION: HEENT: Head is atraumatic, normocephalic. Pupils equal, round. Neck is supple. There is no elevated jugular venous pressure. HEART EXAMINATION: Heart S1, S2 normal. No murmur or gallop heard. CHEST EXAMINATION: Lungs are with mild diminished air entry to posterior bases. ABDOMEN: Soft, nontender. Bowel sounds are heard. No organomegaly noted. Right radial site clean and dry, good distal pulse. EXTREMITIES: 2+ peripheral pulses with trace evidence of peripheral edema and no calf tenderness noted. NEUROLOGIC patient is awake, alert and oriented -3. . - Labs CBC & Chem 7: 08/15/16 05:52 08/15/16 05:52 Labs: Abnormal Lab Results - Last 24 Hours (Table) 08/14/16 08/14/16 08/15/16 Range/Units 16:50 20:17 05:52 RBC 2.68 L (4.30-5.90) m/uL Hgb 8.5 L (13.0-17.5) gm/dL Hct 26.1 L (39.0-53.0) % Carbon Dioxide (22-30) mmol/L BUN (9-20) mg/dL Glucose (74-99) mg/dL POC Glucose (mg/dL) 137 H 114 H (75-99) mg/dL 08/15/16 08/15/16 Range/Units 05:52 11:51 RBC (4.30-5.90) m/uL Hgb (13.0-17.5) gm/dL Hct (39.0-53.0) % Carbon Dioxide 32 H (22-30) mmol/L BUN 26 H (9-20) mg/dL Glucose 114 H (74-99) mg/dL POC Glucose (mg/dL) 198 H (75-99) mg/dL Assessment and Plan (1) S/P CABG (coronary artery bypass graft) Status: Acute (2) CAD (coronary artery disease) Status: Acute (3) HTN (hypertension) Status: Acute (4) Hyperlipemia Status: Acute (5) Nicotine dependence Status: Acute (6) COPD (chronic obstructive pulmonary disease) Status: Acute Plan: From cardiology's perspective, we will recommend to continue the patient on his current medications. He is also being considered for placement of a LifeVest prior to discharge. DNP note has been reviewed, I agree with a documented findings and plan of care. Patient was seen and examined.
[2016-08-15 16:50] LABS: Glucose,Whole Blood 166 mg/dL (75-99)
[2016-08-15] MEDS: LORazepam 1 MG TAB PO PRN (18:11)
[2016-08-15 20:00] LABS: Glucose,Whole Blood 141 mg/dL (75-99)
[2016-08-15] MEDS: SENNOSIDES-DOCUSATE SODIUM 1 EACH TAB PO SCH (20:22)
--- NOTE | 2016-08-15 21:26 | PN ---
DATE OF SERVICE: 08/15/2016 CHIEF COMPLAINT: Unstable angina and COPD. HISTORY OF PRESENT ILLNESS: This gentleman is doing well. He has had no further chest pain. Breathing is improved. PHYSICAL EXAMINATION: CHEST: Clear. Cardiac exam is normal. ABDOMEN: Soft and nontender. EXTREMITIES: Normal. IMPRESSION: 1. Chest pain. 2. Chronic obstructive pulmonary disease. PLAN: No change in program. Probably home in the next day or 2.
[2016-08-16 02:20] LABS: Glucose,Whole Blood 108 mg/dL (75-99)
[2016-08-16 05:43] LABS: Glucose,Whole Blood 113 mg/dL (75-99)
[2016-08-16] MEDS: PANTOPRAZOLE 40 MG TABLET PO SCH (06:04)
[2016-08-16] MEDS: METOPROLOL TARTRATE 25 MG TAB PO SCH (06:04)
[2016-08-16] MEDS: INSULIN LISPRO (humaLOG) 300 UNIT/3 ML VIAL SQ SCH ×4 (06:26→21:55)
[2016-08-16 06:48] LABS: CH 31.7; CHCM 32.4; HCT 25.7 % (39.0-53.0); HGB 8.3 gm/dL (13.0-17.5); MCH 31.9 pg (25.0-35.0); MCHC 32.4 g/dL (31.0-37.0); MCV 98.5 fL (80.0-100.0); Mean Platelet Volume 6.8; RBC 2.61 m/uL (4.30-5.90); RDW 14.3 % (11.5-15.5); WBC 12.6 k/uL (3.8-10.6)
[2016-08-16 07:07] LABS: Anion Gap 6 mmol/L; Blood Urea Nitrogen 23 mg/dL (9-20); Calcium 8.5 mg/dL (8.4-10.2); Carbon Dioxide 28 mmol/L (22-30); Chloride 103 mmol/L (98-107); Glucose 101 mg/dL (74-99); Non-African American GFR(MDRD) >60 (>60 ml/min/1.73 sqM); Potassium 4.8 mmol/L (3.5-5.1); Sodium 137 mmol/L (137-145)
[2016-08-16] MEDS: IPRATROPIUM-ALBUTEROL 3 ML NEB INHALATION SCH ×4 (07:56→20:22)
[2016-08-16] MEDS: BUDESONIDE 0.5 MG/2 ML NEBU INHALATION SCH ×2 (07:56→20:21)
[2016-08-16] MEDS: ATORVASTATIN 40 MG TAB PO SCH (08:20)
[2016-08-16] MEDS: HEPARIN SODIUM,PORCINE 5,000 UNIT/ML 1 ML VIAL SQ SCH ×3 (08:20→23:03)
[2016-08-16] MEDS: CLOPIDOGREL 75 MG TAB PO SCH (08:20)
[2016-08-16] MEDS: ASPIRIN 325 MG TAB PO SCH (08:20)
[2016-08-16] MEDS: MUPIROCIN 2% OINT 22 GM TUBE NASAL SCH ×2 (08:23→21:55)
--- NOTE | 2016-08-16 08:57 | P.PN ---
Subjective 55-year-old being seen on rounds this morning is currently sitting up in a chair taking a diet pleasant cooperative oriented 3. Patient states breathing feels improved. Nasal cannula at 2 L sats are 93% afebrile Patients being followed by multiple consulting physicians cardiology,pulmonology and cardiovascular surgery. Recommendations noted appreciated and reviewed Patient is post op day 5 triple coronary artery bypass grafting. 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 Objective - Vital Signs Vital signs: Vital Signs Temp 98.5 F 08/16/16 07:55 Pulse 76 08/16/16 08:12 Resp 16 08/16/16 07:55 BP 106/63 08/16/16 07:55 Pulse Ox 93 L 08/16/16 07:56 Intake & Output 08/15/16 08/16/16 08/16/16 18:59 06:59 18:59 Output Total 440 1870 Balance -440 -1870 Weight 89.7 kg 89.7 kg Output: Drainage 90 270 Left Calf 90 150 Right Calf 120 Urine 350 1600 Other: Voiding Method Urinal Urinal # Voids 2 2 # Bowel Movements 0 ABP, PAP, CO, CI - Last Documented Arterial Blood Pressure 88/52 Pulmonary Artery Pressure 31/15 Cardiac Output 7.2 Cardiac Index 3.6 - Exam Physical exam 55-year-old gentleman sitting up in a chair taking a diet this morning pleasant cooperative oriented 3 states pain medication effective for pain control Lungs posterior diminished at the bases able to use see incentive spirometer able to achieve 2000 oxygen being titrated down to keep the sats greater than 90 % no cough noted Heart S1-S2 audible regular Abdomen soft nontender right ear - Labs CBC & Chem 7: 08/16/16 06:04 08/16/16 06:04 Labs: Abnormal Lab Results - Last 24 Hours (Table) 08/15/16 08/15/16 08/15/16 Range/Units 11:51 16:42 19:58 WBC (3.8-10.6) k/uL RBC (4.30-5.90) m/uL Hgb (13.0-17.5) gm/dL Hct (39.0-53.0) % BUN (9-20) mg/dL Glucose (74-99) mg/dL POC Glucose (mg/dL) 198 H 166 H 141 H (75-99) mg/dL 08/16/16 08/16/16 08/16/16 Range/Units 02:18 05:42 06:04 WBC 12.6 H (3.8-10.6) k/uL RBC 2.61 L (4.30-5.90) m/uL Hgb 8.3 L (13.0-17.5) gm/dL Hct 25.7 L (39.0-53.0) % BUN (9-20) mg/dL Glucose (74-99) mg/dL POC Glucose (mg/dL) 108 H 113 H (75-99) mg/dL 08/16/16 Range/Units 06:04 WBC (3.8-10.6) k/uL RBC (4.30-5.90) m/uL Hgb (13.0-17.5) gm/dL Hct (39.0-53.0) % BUN 23 H (9-20) mg/dL Glucose 101 H (74-99) mg/dL POC Glucose (mg/dL) (75-99) mg/dL Assessment and Plan Plan: Impression Present on admission shortness of breath suspect due to an acute exacerbation of COPD Current every day smoker 1 pack a day greater than a 20 year history Chronic lower back pain with bilateral carpal tunnel per history with narcotic dependency on oxycodone 15 mg 4 times a day History of asthma Mildly elevated troponins present on admission suspect due to a non-ST elevated CA History of coronary artery disease with prior coronary stenting right coronary and circumflex 2014 CAT scan of the chest no evidence of pulmonary emboli positive for bullous emphysema This admission episode nonsustained V. tach asymptomatic Echocardiogram August 07 F ventricular systolic function severely impaired with an EF between 20 and 25% with moderate pulmonary hypertension Chronic congestive heart failure systolic dysfunction EF 20-25% Status post heart catheterization done on August 08 shows evidence of progression of disease in the right coronary artery and in the LAD system with a patent circumflex stent Plan Resume home meds as appropriate Respiratory treatments as ordered cont post op care DVT and GI prophylaxis Continue with the Singulair as ordered Further recommendations pending The above dictated assessment and findings were discussed with dr stewart Impression and the plan of care have been dictated as directed. Maribel Gooden nurse practitioner acting as a scribe for dr stewart
--- NOTE | 2016-08-16 09:54 | P.VSCSTY ---
Greater Saphenous Vein Mapping This is bilateral lower extremity greater saphenous vein mapping. Date of service 08/08/2016 Vein quality and ultrasound appearance normal. Vein size groin right 6.5 x 5.8 groin left 5.2 x 5.9 High thigh right 4.0 x 5.2 high thigh left 6.0 x 5.8 Mid thigh right 4.7 x 5.5 mid thigh left 4.5 x 4.0 Above-knee right 4.2 x 5.2 above- knee left 3.9 x 4.5 Below knee right 3.6 x 4.1 below-knee left 2.9 x 4.3 Mid calf right to 2.7 x 3.9 mid calf left 2.5 x 3.3 Ankle right to 2.7 x 3.3 ankle left to 2.8 x 3.3 Impression usable bilateral greater saphenous vein.
--- NOTE | 2016-08-16 09:56 | P.ARTDOP ---
Arterial Doppler LOWER EXTREMITY ARTERIAL DOPPLER: DATE OF SERVICE: 08/08/2016 Reason for study: Preop CABG. Doppler waveforms: Multiphasic bilaterally throughout. Pulse volume recording: []. Pressure gradients: None. Ankle-brachial indices: Greater than 1 bilaterally. Toe pressures: [] on the right, [] on the left Impression: Normal basic study.
[2016-08-16] MEDS: LORazepam 1 MG TAB PO PRN ×2 (10:49→18:37)
--- NOTE | 2016-08-16 11:37 | P.PN ---
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 Hypertension. Hyperlipidemia. Tobacco abuse with severe emphysematous changes in both lungs. Mild mitral valve regurgitation. POD #6 triple coronary artery bypass grafting using the left internal mammary artery to the left anterior descending artery, reverse saphenous vein graft from the aorta to the diagonal artery, reverse saphenous vein graft from the aorta to the posterior descending artery. Endoscopic harvesting of the left greater saphenous vein from groin to below knee level. Intraoperative transesophageal echocardiogram and epi-aortic scanning. Intraoperative graft flow measurements. Patient currently sitting up in bed in no apparent distress. Voices no concerns at this time. Objective - Vital Signs Vital signs: Vital Signs Temp 98.1 F 08/16/16 08:00 Pulse 76 08/16/16 08:12 Resp 18 08/16/16 08:00 BP 108/60 08/16/16 08:00 Pulse Ox 93 L 08/16/16 08:00 Intake & Output 08/15/16 08/16/16 08/16/16 18:59 06:59 18:59 Output Total 440 1870 Balance -440 -1870 Weight 89.7 kg 89.7 kg 89.7 kg Output: Drainage 90 270 Left Calf 90 150 Right Calf 120 Urine 350 1600 Other: Voiding Method Urinal Urinal Urinal # Voids 2 2 2 # Bowel Movements 0 ABP, PAP, CO, CI - Last Documented Arterial Blood Pressure 88/52 Pulmonary Artery Pressure 31/15 Cardiac Output 7.2 Cardiac Index 3.6 - Constitutional General appearance: Present: cooperative, no acute distress - Respiratory Details: Lung sounds diminished bilaterally. Respirations even, nonlabored. Currently on room air. Able to achieve 2000 mL on incentive spirometry. - Cardiovascular Details: S1, S2 present. Regular rate and rhythm, normal sinus rhythm on telemetry. Chest stable. Heart hugger in place with patient demonstrating appropriate use. - Gastrointestinal Gastrointestinal Comment(s): Abdomen soft, nontender, nondistended. Active bowel sounds 4 quadrants. Tolerating diet. - Genitourinary Genitourinary Comment(s): Continues to void clear, yellow urine. - Integumentary Integumentary Comment(s): Anterior chest incision covered with dry intact dressing. Left lower extremity EVH site well approximated with SOSA drain present. - Musculoskeletal Musculoskeletal: Present: gait normal, strength equal bilaterally - Psychiatric Psychiatric Comment(s): Anxious at times. Psychiatric: Present: A&O x's 3, appropriate affect, intact judgment & insight - Allied health notes Allied health notes reviewed: case management - Labs CBC & Chem 7: 08/16/16 06:04 08/16/16 06:04 Labs: Abnormal Lab Results - Last 24 Hours (Table) 08/15/16 08/15/16 08/15/16 Range/Units 11:51 16:42 19:58 WBC (3.8-10.6) k/uL RBC (4.30-5.90) m/uL Hgb (13.0-17.5) gm/dL Hct (39.0-53.0) % BUN (9-20) mg/dL Glucose (74-99) mg/dL POC Glucose (mg/dL) 198 H 166 H 141 H (75-99) mg/dL 08/16/16 08/16/16 08/16/16 Range/Units 02:18 05:42 06:04 WBC 12.6 H (3.8-10.6) k/uL RBC 2.61 L (4.30-5.90) m/uL Hgb 8.3 L (13.0-17.5) gm/dL Hct 25.7 L (39.0-53.0) % BUN (9-20) mg/dL Glucose (74-99) mg/dL POC Glucose (mg/dL) 108 H 113 H (75-99) mg/dL 08/16/16 Range/Units 06:04 WBC (3.8-10.6) k/uL RBC (4.30-5.90) m/uL Hgb (13.0-17.5) gm/dL Hct (39.0-53.0) % BUN 23 H (9-20) mg/dL Glucose 101 H (74-99) mg/dL POC Glucose (mg/dL) (75-99) mg/dL Assessment and Plan (1) COPD (chronic obstructive pulmonary disease) Status: Acute (2) Hypertension Status: Acute (3) Hyperlipidemia Status: Acute (4) Non-STEMI (non-ST elevated myocardial infarction) Status: Acute Plan: 1. Continue ASA, statin, BB, heparin, Plavix, ARB. 2. Continue aggressive pain control with recommendations from Dr. Bradshaw 3. Increase activity, ambulate in hallway with minimum 4 times daily. Physical therapy to follow. 4. LifeVest ordered for discharge. 5. GI/DVT prophylaxis 6. Will need rehab at discharge as patient is homeless without any support system in place. Discharge planning per case management/social work. Waiting for insurance authorization as well as facility willing to accept patient. 7. May be discharged as soon as a facility has a bed available. Time with Patient: Greater than 30
[2016-08-16 11:45] LABS: Glucose,Whole Blood 114 mg/dL (75-99)
[2016-08-16] MEDS: LOSARTAN 25 MG TAB PO SCH (11:54)
--- NOTE | 2016-08-16 15:01 | P.PN ---
Subjective Principal diagnosis: Chest pain This is a 55-year-old gentleman with known history of coronary artery disease, patient underwent angioplasty with stent placement of the right coronary artery and left circumflex artery in 2013, history of hypertension, hyperlipidemia, nicotine dependence, COPD. he is status post coronary artery bypass grafting surgery. Patient overall is doing quite well, up ambulating without any difficulty. Reaching 2500 on his incentive spirometry. Attempts are being made for transfer to rehab. Patient is also awaiting LifeVest. Objective - Vital Signs Vital signs: Vital Signs Temp 98.4 F 08/16/16 12:00 Pulse 88 08/16/16 12:00 Resp 18 08/16/16 12:00 BP 111/56 08/16/16 12:00 Pulse Ox 94 L 08/16/16 12:00 Intake & Output 08/15/16 08/16/16 08/16/16 18:59 06:59 18:59 Output Total 440 1870 Balance -440 -1870 Weight 89.7 kg 89.7 kg 89.7 kg Output: Drainage 90 270 Left Calf 90 150 Right Calf 120 Urine 350 1600 Other: Voiding Method Urinal Urinal Urinal # Voids 2 2 0 # Bowel Movements 0 ABP, PAP, CO, CI - Last Documented Arterial Blood Pressure 88/52 Pulmonary Artery Pressure 31/15 Cardiac Output 7.2 Cardiac Index 3.6 - Exam PHYSICAL EXAMINATION: HEENT: Head is atraumatic, normocephalic. Pupils equal, round. Neck is supple. There is no elevated jugular venous pressure. HEART EXAMINATION: Heart S1, S2 normal. No murmur or gallop heard. CHEST EXAMINATION: Lungs are with mild diminished air entry to posterior bases. ABDOMEN: Soft, nontender. Bowel sounds are heard. No organomegaly noted. Right radial site clean and dry, good distal pulse. EXTREMITIES: 2+ peripheral pulses with trace evidence of peripheral edema and no calf tenderness noted. NEUROLOGIC patient is awake, alert and oriented -3. . - Labs CBC & Chem 7: 08/16/16 06:04 08/16/16 06:04 Labs: Abnormal Lab Results - Last 24 Hours (Table) 08/15/16 08/15/16 08/16/16 Range/Units 16:42 19:58 02:18 WBC (3.8-10.6) k/uL RBC (4.30-5.90) m/uL Hgb (13.0-17.5) gm/dL Hct (39.0-53.0) % BUN (9-20) mg/dL Glucose (74-99) mg/dL POC Glucose (mg/dL) 166 H 141 H 108 H (75-99) mg/dL 08/16/16 08/16/16 08/16/16 Range/Units 05:42 06:04 06:04 WBC 12.6 H (3.8-10.6) k/uL RBC 2.61 L (4.30-5.90) m/uL Hgb 8.3 L (13.0-17.5) gm/dL Hct 25.7 L (39.0-53.0) % BUN 23 H (9-20) mg/dL Glucose 101 H (74-99) mg/dL POC Glucose (mg/dL) 113 H (75-99) mg/dL 08/16/16 Range/Units 11:37 WBC (3.8-10.6) k/uL RBC (4.30-5.90) m/uL Hgb (13.0-17.5) gm/dL Hct (39.0-53.0) % BUN (9-20) mg/dL Glucose (74-99) mg/dL POC Glucose (mg/dL) 114 H (75-99) mg/dL Assessment and Plan (1) S/P CABG (coronary artery bypass graft) Status: Acute (2) CAD (coronary artery disease) Status: Acute (3) HTN (hypertension) Status: Acute (4) Hyperlipemia Status: Acute (5) Nicotine dependence Status: Acute (6) COPD (chronic obstructive pulmonary disease) Status: Acute Plan: From cardiology's perspective, we will recommend to continue the patient on his current medications. Arrangements are being made for rehab. He is also being considered for placement of a LifeVest prior to discharge. DNP note has been reviewed, I agree with a documented findings and plan of care. Patient was seen and examined.
[2016-08-16 16:52] LABS: Glucose,Whole Blood 110 mg/dL (75-99)
--- NOTE | 2016-08-16 18:08 | PN ---
DATE OF SERVICE: 08/16/2016 CHIEF COMPLAINT: Unstable angina pectoris. HISTORY OF PRESENT ILLNESS: This gentleman is doing fairly well. Pain is subsiding. Shortness of breath is improvement. PHYSICAL EXAMINATION: Breath sounds are heard on both sides. Cardiac exam is normal. IMPRESSION: 1. Status post coronary artery bypass graft. 2. Chronic obstructive pulmonary disease. PLAN: Continue to follow. He will be able to go home in a few days.
[2016-08-16 20:51] LABS: Glucose,Whole Blood 140 mg/dL (75-99)
--- NOTE | 2016-08-16 21:06 | PN ---
DATE OF SERVICE: 08/16/2016 HISTORY OF PRESENT ILLNESS: The patient is a 55-year-old male who initially came into the hospital with problems with chest pain and shortness of breath and cough. He did have some mildly elevated troponin. He subsequently had cardiac catheterization done that showed disease to the right coronary artery, LAD and involving circumflex. He did have stent placement and unfortunately did require triple bypass surgery not long afterwards. He was admitted with coronary artery disease with acute VT and acute exacerbation of asthma at that time. He is seen. He states that he is using his incentive spirometer off and on. He states that he is between 2500 and 3000 mL. He states that he has been up walking at least 2 times today. He also states that he is not feeling quite as well as he had yesterday. He is complaining of problems with hand pain and back pain. He still has occasional cough with yellow sputum. He denies any significant pain at incision site. It appears that they are working on suitable placements for him. He states he has no family members to help with his care and that life vest is also being ordered for discharge for him. He states he is eating okay. He has had no nausea and vomiting. No difficulty with diarrhea or constipation at this time. On physical examination, vital signs show temperature of 98.4, heart rate 88, respiratory rate 18, blood pressure is 111/56, oxygen saturation on 2 liters is 94%. Labs show WBC 12.6, hemoglobin 8.3, hematocrit 25.7, platelets are 292, sodium 137, potassium 4.8, chloride 103, carbon dioxide 28, BUN 23, creatinine 0.84, glucose 110. Calcium is 8.5. Sputum culture on admission was normal respiratory erica. Nasal swabs were negative for MRSA and urine culture shows no growth. He did have arterial Doppler study done that showed normal basic study and saphenous vein mapping done that showed bilateral greater saphenous vein is usable. GENERAL: He is a 55-year-old male who appears in no acute respiratory distress at this time. HEENT: Pupils are reactive. Mucous membranes are moist. NECK: Supple. Trach is midline. LUNGS: Sounds are diminished throughout; otherwise clear. CARDIOVASCULAR: S1 and S2 is heard; regular. Chest incision is covered with dressing dry and intact. ABDOMEN: Soft. Bowel sounds are present. EXTREMITIES: No edema. Pulses are palpable. NEUROLOGIC: He is awake, alert. IMPRESSION: 1. Chest pain on admission where he is status post coronary artery bypass graft. 2. Non-ST elevated myocardial infarction. 3. Acute exacerbation of chronic obstructive pulmonary disease, relatively stable. 4. Tracheobronchitis. 5. Active tobacco use. 6. Emphysema. 7. Coronary artery disease. 8. Hypertension. 9. Dyslipidemia. PLAN: Increase activity. Continue with ambulation. Continue with incentive spirometer. Continue with GI and DVT prophylaxis. Continue with oxygen to keep saturations at 90% or better. Titrate down as possible. Continue with nebulizer treatments and Singulair. Continue with pain control. Agree with rehab. Continue with incentive spirometer and pulmonary hygiene. Smoking cessation discussed and highly recommended. Continue with PT/OT as needed. We will continue with supportive care.
[2016-08-16] MEDS: SENNOSIDES-DOCUSATE SODIUM 1 EACH TAB PO SCH (21:54)
[2016-08-16] MEDS: METOPROLOL TARTRATE 50 MG TAB PO SCH (21:55)
[2016-08-17 01:58] LABS: Glucose,Whole Blood 122 mg/dL (75-99)
[2016-08-17 05:48] LABS: Glucose,Whole Blood 103 mg/dL (75-99)
[2016-08-17] MEDS: INSULIN LISPRO (humaLOG) 300 UNIT/3 ML VIAL SQ SCH ×5 (06:10→21:06)
[2016-08-17] MEDS: PANTOPRAZOLE 40 MG TABLET PO SCH (06:20)
[2016-08-17 06:54] LABS: CH 31.6; CHCM 32.6; HCT 24.6 % (39.0-53.0); HDW 2.19; MCH 31.7 pg (25.0-35.0); MCHC 32.5 g/dL (31.0-37.0); MCV 97.5 fL (80.0-100.0); Mean Platelet Volume 6.6; RBC 2.52 m/uL (4.30-5.90); RDW 14.4 % (11.5-15.5); WBC 12.1 k/uL (3.8-10.6)
[2016-08-17 06:55] LABS: Anion Gap 5 mmol/L; Blood Urea Nitrogen 22 mg/dL (9-20); Calcium 8.6 mg/dL (8.4-10.2); Carbon Dioxide 30 mmol/L (22-30); Chloride 101 mmol/L (98-107); Glucose 98 mg/dL (74-99); Non-African American GFR(MDRD) >60 (>60 ml/min/1.73 sqM); Potassium 4.8 mmol/L (3.5-5.1); Sodium 136 mmol/L (137-145)
[2016-08-17] MEDS: IPRATROPIUM-ALBUTEROL 3 ML NEB INHALATION SCH ×4 (07:57→20:02)
[2016-08-17] MEDS: BUDESONIDE 0.5 MG/2 ML NEBU INHALATION SCH ×2 (07:57→20:02)
[2016-08-17] MEDS: HEPARIN SODIUM,PORCINE 5,000 UNIT/ML 1 ML VIAL SQ SCH ×2 (08:10→16:53)
[2016-08-17] MEDS: METOPROLOL TARTRATE 50 MG TAB PO SCH ×2 (08:10→21:01)
[2016-08-17] MEDS: ATORVASTATIN 40 MG TAB PO SCH (08:10)
[2016-08-17] MEDS: MUPIROCIN 2% OINT 22 GM TUBE NASAL SCH ×3 (08:10→21:02)
[2016-08-17] MEDS: CLOPIDOGREL 75 MG TAB PO SCH (08:10)
[2016-08-17] MEDS: ASPIRIN 325 MG TAB PO SCH (08:10)
--- NOTE | 2016-08-17 08:17 | P.PN ---
Subjective 55-year-old being seen on rounds this morning is sitting up taking a diet pleasant cooperative oriented 3 is currently denying chest pain dizziness or lightheadedness. Discharge plan is in progress. vascular manager pursuing subacute rehab placement when bed becomes available. Additionally patient is being followed by cardiology service who recommended the patient needs a light past this is being pursued by case therapist as well. Did discuss the plan of care with the patient patient is aware questions answered patient is postop coronary artery bypass grafting triple-vessel day 6 Objective - Vital Signs Vital signs: Vital Signs Temp 98.6 F 08/17/16 04:00 Pulse 88 08/17/16 08:01 Resp 20 08/17/16 04:00 BP 93/56 08/17/16 04:00 Pulse Ox 84 L 08/17/16 08:01 Intake & Output 08/16/16 08/17/16 08/17/16 18:59 06:59 18:59 Intake Total 200 Output Total 600 850 Balance -600 -650 Weight 89.7 kg 87.1 kg Intake: Oral 200 Output: Urine 600 850 Other: Voiding Method Urinal Urinal # Voids 0 ABP, PAP, CO, CI - Last Documented Arterial Blood Pressure 88/52 Pulmonary Artery Pressure 31/15 Cardiac Output 7.2 Cardiac Index 3.6 - Exam Physical exam 55-year-old male sitting up in bed taking a diet this morning denying dizziness lightheadedness states pain medication effective for pain control denying shortness of breath currently on room air Lungs posterior diminished at the bases otherwise adequate air movement no wheezing no cough no conversational dyspnea Heart S1-S2 audible and regular monitor sinus Abdomen soft nontender states has not had a bowel movement in a couple days is urinating no difficulty bowel tones present Extremities no edema to the lower extremities - Labs CBC & Chem 7: 08/17/16 06:17 08/17/16 06:17 Labs: Abnormal Lab Results - Last 24 Hours (Table) 08/16/16 08/16/16 08/16/16 Range/Units 11:37 16:50 20:50 WBC (3.8-10.6) k/uL RBC (4.30-5.90) m/uL Hgb (13.0-17.5) gm/dL Hct (39.0-53.0) % Sodium (137-145) mmol/L BUN (9-20) mg/dL POC Glucose (mg/dL) 114 H 110 H 140 H (75-99) mg/dL 08/17/16 08/17/16 08/17/16 Range/Units 01:56 05:46 06:17 WBC 12.1 H (3.8-10.6) k/uL RBC 2.52 L (4.30-5.90) m/uL Hgb 8.0 L (13.0-17.5) gm/dL Hct 24.6 L (39.0-53.0) % Sodium (137-145) mmol/L BUN (9-20) mg/dL POC Glucose (mg/dL) 122 H 103 H (75-99) mg/dL 08/17/16 Range/Units 06:17 WBC (3.8-10.6) k/uL RBC (4.30-5.90) m/uL Hgb (13.0-17.5) gm/dL Hct (39.0-53.0) % Sodium 136 L (137-145) mmol/L BUN 22 H (9-20) mg/dL POC Glucose (mg/dL) (75-99) mg/dL Assessment and Plan Plan: Impression Present on admission shortness of breath suspect due to an acute exacerbation of COPD Current every day smoker 1 pack a day greater than a 20 year history Chronic lower back pain with bilateral carpal tunnel per history with narcotic dependency on oxycodone 15 mg 4 times a day History of asthma Mildly elevated troponins present on admission suspect due to a non-ST elevated VA History of coronary artery disease with prior coronary stenting right coronary and circumflex 2013 CAT scan of the chest no evidence of pulmonary emboli positive for bullous emphysema This admission episode nonsustained V. tach asymptomatic Echocardiogram August 07 F ventricular systolic function severely impaired with an EF between 20 and 25% with moderate pulmonary hypertension Chronic congestive heart failure systolic dysfunction EF 20-25% Status post heart catheterization done on August 08 shows evidence of progression of disease in the right coronary artery and in the LAD system with a patent circumflex stent Plan Continue postop surgical care per cardiovascular surgery Discharge plan and progress case therapistintervention manager worker pursuing ECF subacute placement Patient will need a LifeVest at the time of discharge per cardiology's recommendations Respiratory treatments as ordered Pain control DVT and GI prophylaxis Further recommendations pending The above dictated assessment and findings were discussed with dr terry Zaldivar and the plan of care have been dictated as directed. Maribel Gooden nurse practitioner acting as a scribe for dr stewart
--- NOTE | 2016-08-17 09:59 | ECHOF ---
Referral Reason:limited echo to assess lvf MEASUREMENTS -------- HEIGHT: 172.7 cm WEIGHT: 89.4 kg BP: 111/56 LAESV Index (A-L): 26.39 ml/m RAP: 5.00 mmHg RVSP: 37.10 mmHg FINDINGS -------- Sinus rhythm. Overall left ventricular systolic function is severely impaired with, an EF between 25 - 30 %. Normal LA size by volume 22+/-6 ml/m2. 1.5mg of Definity was utilized for enhancement of images Mild tricuspid regurgitation present. There is mild pulmonary hypertension. The right ventricular systolic pressure, as measured by Doppler, is 37.10mmHg. The pericardium is normal. CONCLUSIONS -------- 1. Sinus rhythm. 2. Overall left ventricular systolic function is severely impaired with, an EF between 25 - 30 %. 3. Normal LA size by volume 22+/-6 ml/m2. 4. 1.5mg of Definity was utilized for enhancement of images 5. Mild tricuspid regurgitation present. 6. There is mild pulmonary hypertension. 7. The right ventricular systolic pressure, as measured by Doppler, is 37.10mmHg. 8. The pericardium is normal. [employer] PROFESSIONAL: Chelsey Zapata [facility]
--- NOTE | 2016-08-17 10:31 | P.PN ---
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 Hypertension. Hyperlipidemia. Tobacco abuse with severe emphysematous changes in both lungs. Mild mitral valve regurgitation. POD #7 triple coronary artery bypass grafting using the left internal mammary artery to the left anterior descending artery, reverse saphenous vein graft from the aorta to the diagonal artery, reverse saphenous vein graft from the aorta to the posterior descending artery. Endoscopic harvesting of the left greater saphenous vein from groin to below knee level. Intraoperative transesophageal echocardiogram and epi-aortic scanning. Intraoperative graft flow measurements. I Patient currently sitting up in bed in no apparent distress. Voices no concerns at this time. He understands that he is waiting for insurance authorization and placement in a facility in order to be discharged. Objective - Vital Signs Vital signs: Vital Signs Temp 99.2 F 08/17/16 08:00 Pulse 84 08/17/16 08:18 Resp 18 08/17/16 08:00 BP 108/56 08/17/16 08:00 Pulse Ox 96 08/17/16 08:00 Intake & Output 08/16/16 08/17/16 08/17/16 18:59 06:59 18:59 Intake Total 200 Output Total 600 850 350 Balance -600 -650 -350 Weight 89.7 kg 87.1 kg 87.1 kg Intake: Oral 200 Output: Urine 600 850 350 Other: Voiding Method Urinal Urinal Urinal # Voids 0 0 ABP, PAP, CO, CI - Last Documented Arterial Blood Pressure 88/52 Pulmonary Artery Pressure 31/15 Cardiac Output 7.2 Cardiac Index 3.6 - Constitutional General appearance: Present: cooperative, no acute distress - Respiratory Details: Lungs sounds diminished bilaterally. respirations even, nonlabored. Able to achieve 2000 mL on his incentive spirometry. Effective cough with productive yellow thick sputum. - Cardiovascular Details: S1, S2 present. Regular rate and rhythm, normal sinus rhythm on telemetry with a few episodes of sinus tachycardia in the 120s last night on midnights. Chest stable. Heart hugger in place with patient demonstrating appropriate use. Teds , SCDs present. - Gastrointestinal Gastrointestinal Comment(s): Abdomen soft, nontender, nondistended. Active bowel sounds 4 quadrants. Tolerating diet. - Genitourinary Genitourinary Comment(s): Continues to void clear, yellow urine per urinal. - Integumentary Integumentary Comment(s): Anterior chest incision covered with dry intact dressing. Left lower extremity EVH site well approximated with minimal serous drainage. - Musculoskeletal Musculoskeletal: Present: gait normal, strength equal bilaterally - Psychiatric Psychiatric: Present: A&O x's 3, appropriate affect, intact judgment & insight - Allied health notes Allied health notes reviewed: social work - Labs CBC & Chem 7: 08/17/16 06:17 08/17/16 06:17 Labs: Abnormal Lab Results - Last 24 Hours (Table) 08/16/16 08/16/16 08/16/16 Range/Units 11:37 16:50 20:50 WBC (3.8-10.6) k/uL RBC (4.30-5.90) m/uL Hgb (13.0-17.5) gm/dL Hct (39.0-53.0) % Sodium (137-145) mmol/L BUN (9-20) mg/dL POC Glucose (mg/dL) 114 H 110 H 140 H (75-99) mg/dL 08/17/16 08/17/16 08/17/16 Range/Units 01:56 05:46 06:17 WBC 12.1 H (3.8-10.6) k/uL RBC 2.52 L (4.30-5.90) m/uL Hgb 8.0 L (13.0-17.5) gm/dL Hct 24.6 L (39.0-53.0) % Sodium (137-145) mmol/L BUN (9-20) mg/dL POC Glucose (mg/dL) 122 H 103 H (75-99) mg/dL 08/17/16 Range/Units 06:17 WBC (3.8-10.6) k/uL RBC (4.30-5.90) m/uL Hgb (13.0-17.5) gm/dL Hct (39.0-53.0) % Sodium 136 L (137-145) mmol/L BUN 22 H (9-20) mg/dL POC Glucose (mg/dL) (75-99) mg/dL Assessment and Plan (1) COPD (chronic obstructive pulmonary disease) Status: Acute (2) Hypertension Status: Acute (3) Hyperlipidemia Status: Acute (4) Non-STEMI (non-ST elevated myocardial infarction) Status: Acute Plan: 1. Continue ASA, statin, BB, heparin, Plavix, ARB. 2. Pain control with recommendations from Dr. Bradshaw 3. Continue to ambulate in hallway. 4. LifeVest ordered for discharge, however patient's insurance is declining to pay for LifeVest. 5. GI/DVT prophylaxis 6. Discharge planning per case management/social work. Waiting for insurance authorization as well as facility willing to accept patient. Patient needs to be admitted to rehab facility as he is homeless and is at high risk for sudden cardiac and is unable to pay for a LifeVest. Repeat echocardiogram shows ejection fraction 25-30%. 7. May be discharged as soon as a facility has a bed available. Time with Patient: Greater than 30
[2016-08-17] MEDS: LORazepam 1 MG TAB PO PRN ×3 (10:59→22:08)
[2016-08-17] MEDS: NICOTINE 21MG/24HR PATCH TRANSDERM SCH (11:46)
[2016-08-17] MEDS: LOSARTAN 25 MG TAB PO SCH (11:48)
[2016-08-17 11:51] LABS: Glucose,Whole Blood 111 mg/dL (75-99)
--- NOTE | 2016-08-17 12:54 | PN ---
DATE OF SERVICE: 08/17/2016 He has been hemodynamically stable. He has some very mild shortness of breath. His incentive spirometry is up to 1500. On physical examination, his respiratory rate is 18, blood pressure 108/56, temperature 99.2, O2 sat on 2 L by nasal cannula is 96%. HEENT reveals no new changes. Chest reveals subcutaneous emphysema with crepitus in the left anterior chest wall. Decreased breath sounds at the bases. No wheezing. Cardiovascular system reveals an S1, S2. Abdomen is soft. There is no pedal edema. Labs reveal a white count of 12.1, hemoglobin of 8. Sodium 136, potassium 4.8, chloride 101, bicarb 30, BUN 22, creatinine 0.89. Chest x-ray has been ordered, but not done. IMPRESSION AT THIS TIME: 1. Coronary artery disease, status post coronary artery bypass. 2. Cardiomyopathy with ejection fraction of 20% or so. 3. Emphysema and asthma with recent exacerbation. 4. Subcutaneous emphysema on the left, etiology of which is unclear. May be due to recent surgery versus an air leak from an ongoing pneumothorax. At this point in time, from a pulmonary standpoint, we will check a chest x-ray. Continue him on his current medications, which were reviewed. Continue incentive spirometry. Continue aerosolized steroids. Increase his activity level. Discharge planning to a rehab facility would be appropriate if he is otherwise stable. Depending again on what his chest x-ray shows. He was counseled regarding his condition and this approach. I did talk to case management regarding this as well.
[2016-08-17 16:50] LABS: Glucose,Whole Blood 116 mg/dL (75-99)
--- NOTE | 2016-08-17 17:33 | PN ---
This patient is status post coronary artery bypass surgery. Patient remains clinically stable without any arrhythmia. Arrangements are being made for patient's discharge. Patient's vital signs are stable. Blood pressure is 104/68 mmHg. HEART: S1 and S2 normal. Lungs are clinically clear to auscultation and percussion. Patient is going to go home on a Life Vest because of the persistently low ejection fraction.
[2016-08-17] MEDS: DOXYCYCLINE 50 MG CAP PO SCH (20:44)
[2016-08-17] MEDS: methylPREDNISolone SOD SUCCI 40 MG/ML 1 ML VIAL IV SCH (20:44)
[2016-08-17] MEDS: NITROGLYCERIN OINT 1 INCH/GM PACKET TOPICAL SCH (20:44)
[2016-08-17] MEDS: FAMOTIDINE 20 MG TAB PO SCH (20:44)
[2016-08-17] MEDS: SPIRONOLACTONE 25 MG TAB PO SCH (20:45)
--- NOTE | 2016-08-17 20:48 | PN ---
DATE OF SERVICE: 08/17/2016 CHIEF COMPLAINT: Status post CABG with COPD. HISTORY OF PRESENT ILLNESS: This gentleman is doing fairly well and he is making steady improvement and will probably go home in a few days. PHYSICAL EXAM: Breath sounds are heard on both sides. He is still a little bit pale, but he is up and ambulating. IMPRESSION: 1. Status post coronary artery bypass graft. 2. Chronic obstructive pulmonary disease. PLAN: Continue to follow with Cardiology and Cardiac Surgery and he will probably go home soon.
[2016-08-17 20:58] LABS: Glucose,Whole Blood 128 mg/dL (75-99)
[2016-08-17] MEDS: SENNOSIDES-DOCUSATE SODIUM 1 EACH TAB PO SCH (21:01)
[2016-08-18] MEDS: HEPARIN SODIUM,PORCINE 5,000 UNIT/ML 1 ML VIAL SQ SCH ×4 (00:36→23:05)
[2016-08-18 03:19] LABS: Glucose,Whole Blood 116 mg/dL (75-99)
[2016-08-18 06:14] LABS: CH 31.5; CHCM 32.5; HDW 2.31; HGB 8.1 gm/dL (13.0-17.5); MCH 31.4 pg (25.0-35.0); MCHC 32.3 g/dL (31.0-37.0); MCV 97.3 fL (80.0-100.0); Mean Platelet Volume 6.7; RBC 2.57 m/uL (4.30-5.90); RDW 14.2 % (11.5-15.5); WBC 12.8 k/uL (3.8-10.6)
[2016-08-18 06:19] LABS: Glucose,Whole Blood 121 mg/dL (75-99)
[2016-08-18 06:35] LABS: Anion Gap 7 mmol/L; Blood Urea Nitrogen 24 mg/dL (9-20); Calcium 8.5 mg/dL (8.4-10.2); Carbon Dioxide 28 mmol/L (22-30); Chloride 102 mmol/L (98-107); Glucose 126 mg/dL (74-99); Non-African American GFR(MDRD) >60 (>60 ml/min/1.73 sqM); Potassium 4.4 mmol/L (3.5-5.1); Sodium 137 mmol/L (137-145)
[2016-08-18] MEDS: INSULIN LISPRO (humaLOG) 300 UNIT/3 ML VIAL SQ SCH ×4 (06:52→21:41)
[2016-08-18] MEDS: PANTOPRAZOLE 40 MG TABLET PO SCH (06:58)
[2016-08-18] MEDS: IPRATROPIUM-ALBUTEROL 3 ML NEB INHALATION SCH ×4 (08:03→20:27)
[2016-08-18] MEDS: BUDESONIDE 0.5 MG/2 ML NEBU INHALATION SCH ×2 (08:03→20:27)
[2016-08-18] MEDS: ASPIRIN 325 MG TAB PO SCH (09:05)
[2016-08-18] MEDS: METOPROLOL TARTRATE 50 MG TAB PO SCH ×2 (09:06→21:33)
[2016-08-18] MEDS: MUPIROCIN 2% OINT 22 GM TUBE NASAL SCH ×2 (09:06→21:34)
[2016-08-18] MEDS: CLOPIDOGREL 75 MG TAB PO SCH (09:06)
[2016-08-18] MEDS: ATORVASTATIN 40 MG TAB PO SCH (09:06)
[2016-08-18] MEDS: NICOTINE 21MG/24HR PATCH TRANSDERM SCH (09:07)
--- NOTE | 2016-08-18 09:46 | P.PN ---
Subjective This is a 55-year-old white male who initially came into the hospital with problems of chest pain and shortness of breath with a cough. He did have some elevated troponins at that time subsequently he went for a cardiac catheterization and it showed disease to the right coronary artery, LAD and circumflex. He did have stents placement and did require triple bypass surgery afterwards. He was admitted to the hospital with coronary artery disease and acute OR and acute exacerbation of asthma. Today he is being evaluated and examined on the selective care unit. Upon examination he states that he is doing better and his breathing is more under control. The patient has been ambulating in the hallway. He has been using his incentive spirometer and pulls volumes of about 2500. Patient states he occasionally still has a cough with clear sputum. He denies any pain at this time. The patient is currently using 3 L of oxygen and when he has room air he desaturated relatively quickly to 81%. Objective - Vital Signs Vital signs: Vital Signs Temp 99.2 F 08/18/16 03:02 Pulse 94 08/18/16 08:17 Resp 20 08/18/16 03:02 BP 95/54 08/18/16 03:02 Pulse Ox 93 L 08/18/16 08:05 Intake & Output 08/17/16 08/18/16 08/18/16 18:59 06:59 18:59 Output Total 850 550 280 Balance -850 -550 -280 Weight 87.1 kg 85.7 kg Output: Urine 850 550 280 Other: Voiding Method Urinal Urinal # Voids 0 1 ABP, PAP, CO, CI - Last Documented Arterial Blood Pressure 88/52 Pulmonary Artery Pressure 31/15 Cardiac Output 7.2 Cardiac Index 3.6 - Exam GENERAL EXAM: Alert, active, comfortable in no apparent distress. HEAD: Normocephalic. EYES: Normal reaction of pupils, equal size. NOSE: Clear with pink turbinates. THROAT: No erythema or exudates. NECK: No masses, no JVD. CHEST: No chest wall deformity. Dressing dry and intact and in place LUNGS: Equal air entry with no crackles, wheeze, rhonchi or dullness. Diminished at the bases CVS: S1 and S2 normal with no audible mumurs, regular rhythm. ABDOMEN: No hepatosplenomegaly, normal bowel sounds, no guarding or rigidity. EXTREMITIES: No edema noted, pedal pulses palpable. SKIN: No rashes CENTRAL NERVOUS SYSTEM: No focal deficits, tone is normal in all 4 extremities. - Labs CBC & Chem 7: 08/18/16 05:57 08/18/16 05:57 Labs: Abnormal Lab Results - Last 24 Hours (Table) 08/17/16 08/17/16 08/17/16 Range/Units 11:48 16:43 20:39 WBC (3.8-10.6) k/uL RBC (4.30-5.90) m/uL Hgb (13.0-17.5) gm/dL Hct (39.0-53.0) % BUN (9-20) mg/dL Glucose (74-99) mg/dL POC Glucose (mg/dL) 111 H 116 H 128 H (75-99) mg/dL 08/18/16 08/18/16 08/18/16 Range/Units 03: 05:57 05:57 WBC 12.8 H (3.8-10.6) k/uL RBC 2.57 L (4.30-5.90) m/uL Hgb 8.1 L (13.0-17.5) gm/dL Hct 25.0 L (39.0-53.0) % BUN 24 H (9-20) mg/dL Glucose 126 H (74-99) mg/dL POC Glucose (mg/dL) 116 H (75-99) mg/dL 08/18/16 Range/Units 06:14 WBC (3.8-10.6) k/uL RBC (4.30-5.90) m/uL Hgb (13.0-17.5) gm/dL Hct (39.0-53.0) % BUN (9-20) mg/dL Glucose (74-99) mg/dL POC Glucose (mg/dL) 121 H (75-99) mg/dL Assessment and Plan Plan: Assessment Chest pain on admission with elevated troponins now he is status post coronary artery bypass graft Non-ST elevated myocardial infarction Acute exacerbation of chronic obstructive pulmonary disease Tracheobronchitis Active tobacco use Emphysema Coronary artery disease Hypertension Dyslipidemia Plan Medications have been reviewed and we will continue with the current treatment. We will encourage the patient to increase his activity with ambulation. Patient is to continue with his incentive spirometer. Continue supplemental oxygen to keep his saturations at 90% or better titrate down if possible, however the patient may require oxygen at rehab facility. Continue with pulmonary hygiene. Smoking cessation discussed at length. Continue with PT OT continue with supportive care we will continue to monitor labs and adjust treatment as necessary. This patient could be discharged to rehab facility in the near future.
--- NOTE | 2016-08-18 10:03 | P.PN ---
Progress Note - Text CV Surgery Nursing POD: #8, triple coronary artery bypass grafting utilizing the left internal mammary artery to the left anterior descending coronary artery, reverse saphenous vein grafts to the diagonal branch and the posterior descending artery. Endoscopic harvesting of the left greater saphenous vein, intraoperative transesophageal echocardiogram and epi-aortic ultrasonography. Intraoperative graft flow measurements. Patient awake and alert, sitting at bedside, no distress noted, no specific complaints. Vital Signs: Afebrile, T-max 99.2F Vital Signs - 24 hr 08/17/16 08/17/16 08/17/16 11:24 11:36 12:00 Temperature 98.9 F Pulse Rate 80 82 Pulse Rate [ 87 Bilateral Radial] Pulse Rate [ 85 Pulse Oximetery ] Respiratory 20 Rate Blood Pressure 104/68 [Left Arm Supine] O2 Sat by Pulse 96 Oximetry O2 Sat by Pulse Oximetry [Post -Activity] 08/17/16 08/17/16 08/17/16 15:53 16:00 20:00 Temperature 98.5 F 98.8 F Pulse Rate Pulse Rate [ 87 Bilateral Radial] Pulse Rate [ 80 106 H Pulse Oximetery ] Respiratory 19 18 Rate Blood Pressure 102/50 125/58 [Left Arm Supine] O2 Sat by Pulse 96 93 L Oximetry O2 Sat by Pulse 85 L Oximetry [Post -Activity] 08/17/16 08/17/16 08/18/16 20:02 20:11 00:00 Temperature 98.9 F Pulse Rate 84 88 Pulse Rate [ Bilateral Radial] Pulse Rate [ 90 Pulse Oximetery ] Respiratory 18 Rate Blood Pressure 118/62 [Left Arm Supine] O2 Sat by Pulse 92 L Oximetry O2 Sat by Pulse Oximetry [Post -Activity] 08/18/16 08/18/16 08/18/16 03:02 08:04 08:05 Temperature 99.2 F Pulse Rate 94 Pulse Rate [ Bilateral Radial] Pulse Rate [ 94 Pulse Oximetery ] Respiratory 20 Rate Blood Pressure 95/54 [Left Arm Supine] O2 Sat by Pulse 91 L 93 L Oximetry O2 Sat by Pulse Oximetry [Post -Activity] 08/18/16 08:17 Temperature Pulse Rate 94 Pulse Rate [ Bilateral Radial] Pulse Rate [ Pulse Oximetery ] Respiratory Rate Blood Pressure [Left Arm Supine] O2 Sat by Pulse Oximetry O2 Sat by Pulse Oximetry [Post -Activity] Labs: Short CBC 08/18/16 Range/Units 05:57 WBC 12.8 H (3.8-10.6) k/uL Hgb 8.1 L (13.0-17.5) gm/dL Hct 25.0 L (39.0-53.0) % Plt Count 397 (150-450) k/uL [facility] 08/18/16 05:57 Sodium 137 Potassium 4.4 Chloride 102 Carbon Dioxide 28 BUN 24 H Creatinine 0.88 Glucose 126 H Calcium 8.5 Lungs: Respirations are even and nonlabored, breath sounds slightly diminished bilaterally greater on the right than the left. O2 sat: 93% on room air I/S: Patient gave return demonstration of proper use of the incentive spirometer and achieved 2000 mL inspiration. Heart: S1S2, regular rate and rhythm, portable telemetry shows a normal sinus rhythm in the 80s Sternum stable, chest incision clean with silverlon dressing clean and dry. Abdomen: Soft, Positive bowel sounds present in all 4 quadrants. CBGs: 116-128 mg/dL U/O: Patient is voiding adequate amounts of urine Intake & Output 08/16/16 08/17/16 08/18/16 08/19/16 06:59 06:59 06:59 06:59 Intake Total 200 Output Total 2310 1450 1400 280 Balance -2310 -1250 -1400 -280 Weight 89.7 kg 87.1 kg 85.7 kg Active Medications Albuterol/Ipratropium (Duoneb 0.5 Mg-3 Mg/3 Ml Soln) 3 ml INHALATION RT-Q2H PRN PRN Reason: Shortness Of Breath Or Wheezing Last Admin: 08/12/16 11:44 Dose: 3 ml Albuterol/Ipratropium (Duoneb 0.5 Mg-3 Mg/3 Ml Soln) 3 ml INHALATION RT-QID [facility] Last Admin: 08/18/16 08:03 Dose: 3 ml Aspirin (Aspirin) 325 mg PO DAILY [facility] Last Admin: 08/18/16 09:05 Dose: 325 mg Atorvastatin Calcium (Lipitor) 40 mg PO DAILY [facility] Last Admin: 08/18/16 09:06 Dose: 40 mg Bisacodyl (Dulcolax) 10 mg RECTAL DAILY PRN PRN Reason: Constipation Budesonide (Pulmicort) 0.5 mg INHALATION RT-BID [facility] Last Admin: 08/18/16 08:03 Dose: 0.5 mg Clopidogrel Bisulfate (Plavix) 75 mg PO DAILY [facility] Last Admin: 08/18/16 09:06 Dose: 75 mg Heparin Sodium (Porcine) (Heparin) 5,000 unit SQ Q8HR [facility] Last Admin: 08/18/16 09:05 Dose: 5,000 unit Insulin Human Lispro (Humalog) 0 unit SQ ACHS [facility] PRN Reason: Protocol Last Admin: 08/18/16 06:52 Dose: Not Given Lorazepam (Ativan) 1 mg PO HS PRN PRN Reason: Anxiety Last Admin: 08/17/16 22:08 Dose: 1 mg Lorazepam (Ativan) 1 mg PO TID PRN PRN Reason: Anxiety Last Admin: 08/17/16 18:09 Dose: 1 mg Losartan Potassium (Cozaar) 25 mg PO 1200 [facility] Last Admin: 08/17/16 11:48 Dose: 25 mg Magnesium Hydroxide (Milk Of Magnesia) 2,400 mg PO BID PRN PRN Reason: Constipation Metoprolol Tartrate (Lopressor) 50 mg PO BID [facility] Last Admin: 08/18/16 09:06 Dose: 50 mg Miscellaneous Information (Magnesium Per Protocol) 1 each MISCELLANE DAILY PRN ; Protocol PRN Reason: Per Protocol Miscellaneous Information (Phosphorus Per Protocol) 1 each MISCELLANE DAILY PRN ; Protocol PRN Reason: Per Protocol Miscellaneous Information (Potassium Per Protocol) 1 each MISCELLANE DAILY PRN ; Protocol PRN Reason: Per Protocol Mupirocin (Bactroban Oint) 1 applic NASAL BID [facility] Last Admin: 08/18/16 09:06 Dose: 1 applic Nicotine (Habitrol 21mg/24hr Patch) 1 patch TRANSDERM DAILY [facility] Last Admin: 08/18/16 09:07 Dose: 1 patch Ondansetron HCl (Zofran) 4 mg IVP Q6HR PRN PRN Reason: Nausea And Vomiting Oxycodone HCl (Oxyir) 15 mg PO Q4H PRN PRN Reason: Pain Last Admin: 08/18/16 07:26 Dose: 15 mg Pantoprazole Sodium (Protonix) 40 mg PO AC-BRKFST [facility] Last Admin: 08/18/16 06:58 Dose: 40 mg Senna/Docusate Sodium (Senokot-S) 2 each PO HS [facility] Last Admin: 08/17/16 21:01 Dose: 2 each Sodium Chloride (Saline Flush) 10 ml IV BID [facility] Last Admin: 08/18/16 09:07 Dose: 10 ml Sodium Chloride (Saline Flush) 10 ml IV Q12HR [facility] Last Admin: 08/18/16 09:07 Dose: 10 ml Plan: Continue current medical regime Continue aggressive pulmonary toilet utilizing incentive spirometry, coughing and deep breathing. Continue to increase activity as tolerated. Hemoglobin is stable. Await placement to rehab.
[2016-08-18] MEDS: LORazepam 1 MG TAB PO PRN ×2 (10:10→17:52)
[2016-08-18] MEDS: LOSARTAN 25 MG TAB PO SCH (11:32)
[2016-08-18 11:41] LABS: Glucose,Whole Blood 139 mg/dL (75-99)
[2016-08-18 14:06] VITALS: BMI 28.7
--- NOTE | 2016-08-18 14:07 | P.PN ---
Subjective Patient has been up and room sitting up in a chair patient is aware the plan of care. 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 Patient denies any chest pain pain or shortness breath. Patient does states he's been coughing up some greenish secretions. Patient is postop coronary artery bypass grafting triple-vessel day 7 Objective - Vital Signs Vital signs: Vital Signs Temp 98.1 F 08/18/16 12:00 Pulse 87 08/18/16 12:00 Resp 18 08/18/16 12:00 BP 113/68 08/18/16 12:00 Pulse Ox 95 08/18/16 12:00 Intake & Output 08/17/16 08/18/16 08/18/16 18:59 06:59 18:59 Output Total 850 550 280 Balance -850 -550 -280 Weight 87.1 kg 85.7 kg Output: Urine 850 550 280 Other: Voiding Method Urinal Urinal Urinal # Voids 0 1 ABP, PAP, CO, CI - Last Documented Arterial Blood Pressure 88/52 Pulmonary Artery Pressure 31/15 Cardiac Output 7.2 Cardiac Index 3.6 - Exam Physical exam 55-year-old male sitting up in bed taking a diet this morning denying dizziness lightheadedness states pain medication effective for pain control denying shortness of breath currently on room air does state that he has been coughing up some greenish secretions Lungs posterior diminished at the bases otherwise adequate air movement no wheezing no conversational dyspnea Heart S1-S2 audible and regular monitor sinus Abdomen soft nontender states has not had a bowel movement in a couple days is urinating no difficulty bowel tones present Extremities no edema to the lower extremities - Labs CBC & Chem 7: 08/18/16 05:57 08/18/16 05:57 Labs: Abnormal Lab Results - Last 24 Hours (Table) 08/17/16 08/17/16 08/18/16 Range/Units 16:43 20:39 03: WBC (3.8-10.6) k/uL RBC (4.30-5.90) m/uL Hgb (13.0-17.5) gm/dL Hct (39.0-53.0) % BUN (9-20) mg/dL Glucose (74-99) mg/dL POC Glucose (mg/dL) 116 H 128 H 116 H (75-99) mg/dL 03/17/17 03/17/17 03/17/17 Range/Units 05:57 05:57 06:14 WBC 12.8 H (3.8-10.6) k/uL RBC 2.57 L (4.30-5.90) m/uL Hgb 8.1 L (13.0-17.5) gm/dL Hct 25.0 L (39.0-53.0) % BUN 24 H (9-20) mg/dL Glucose 126 H (74-99) mg/dL POC Glucose (mg/dL) 121 H (75-99) mg/dL 08/18/16 Range/Units 11:40 WBC (3.8-10.6) k/uL RBC (4.30-5.90) m/uL Hgb (13.0-17.5) gm/dL Hct (39.0-53.0) % BUN (9-20) mg/dL Glucose (74-99) mg/dL POC Glucose (mg/dL) 139 H (75-99) mg/dL Assessment and Plan Plan: Impression Present on admission shortness of breath suspect due to an acute exacerbation of COPD Current every day smoker 1 pack a day greater than a 20 year history Chronic lower back pain with bilateral carpal tunnel per history with narcotic dependency on oxycodone 15 mg 4 times a day History of asthma Mildly elevated troponins present on admission suspect due to a non-ST elevated MS History of coronary artery disease with prior coronary stenting right coronary and circumflex 2014 CAT scan of the chest no evidence of pulmonary emboli positive for bullous emphysema This admission episode nonsustained V. 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 Maribel Gooden nurse practitioner acting as a scribe for dr stewart
[2016-08-18 17:02] LABS: Glucose,Whole Blood 126 mg/dL (75-99)
[2016-08-18 20:49] LABS: Glucose,Whole Blood 139 mg/dL (75-99)
--- NOTE | 2016-08-18 20:51 | PN ---
DATE OF SERVICE: 08/18/2016 CHIEF COMPLAINT: Status post CABG. HISTORY OF PRESENT ILLNESS: This gentleman is slowly improving. Not sure when he is going to be going home. PHYSICAL EXAMINATION: He remains slightly pale but his chest is quite clear. Cardiac exam is normal. ABDOMEN: Soft, nontender. IMPRESSION: 1. Status post coronary artery bypass graft. 2. Chronic obstructive pulmonary disease. PLAN: Home when he is cleared by Cardiology.
[2016-08-18] MEDS: SENNOSIDES-DOCUSATE SODIUM 1 EACH TAB PO SCH (21:33)
[2016-08-19 02:10] LABS: Glucose,Whole Blood 113 mg/dL (75-99)
[2016-08-19] MEDS: INSULIN LISPRO (humaLOG) 300 UNIT/3 ML VIAL SQ SCH ×4 (06:21→21:01)
[2016-08-19 06:26] LABS: Glucose,Whole Blood 121 mg/dL (75-99)
[2016-08-19] MEDS: PANTOPRAZOLE 40 MG TABLET PO SCH (06:26)
[2016-08-19 06:46] LABS: CH 31.8; CHCM 32.5; HCT 25.9 % (39.0-53.0); HDW 2.42; HGB 8.2 gm/dL (13.0-17.5); MCH 31.1 pg (25.0-35.0); MCHC 31.6 g/dL (31.0-37.0); MCV 98.4 fL (80.0-100.0); Mean Platelet Volume 7.6; RBC 2.63 m/uL (4.30-5.90); WBC 14.9 k/uL (3.8-10.6)
[2016-08-19 07:05] LABS: Anion Gap 10 mmol/L; Blood Urea Nitrogen 24 mg/dL (9-20); Calcium 8.8 mg/dL (8.4-10.2); Carbon Dioxide 27 mmol/L (22-30); Chloride 101 mmol/L (98-107); Glucose 106 mg/dL (74-99); Non-African American GFR(MDRD) >60 (>60 ml/min/1.73 sqM); Potassium 4.9 mmol/L (3.5-5.1); Sodium 138 mmol/L (137-145)
--- NOTE | 2016-08-19 07:39 | P.PN ---
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 Hypertension. Hyperlipidemia. Tobacco abuse with severe emphysematous changes in both lungs. Mild mitral valve regurgitation. POD #9 triple coronary artery bypass grafting using the left internal mammary artery to the left anterior descending artery, reverse saphenous vein graft from the aorta to the diagonal artery, reverse saphenous vein graft from the aorta to the posterior descending artery. Endoscopic harvesting of the left greater saphenous vein from groin to below knee level. Intraoperative transesophageal echocardiogram and epi-aortic scanning. Intraoperative graft flow measurements. I Patient currently sitting up in bed eating breakfast. States he is a little more short of breath than he has been. Objective - Vital Signs Vital signs: Vital Signs Temp 99.3 F 08/19/16 04:23 Pulse 95 08/19/16 04:23 Resp 16 08/19/16 04:23 BP 107/56 08/19/16 04:23 Pulse Ox 91 L 08/19/16 04:23 Intake & Output 08/18/16 08/19/16 08/19/16 18:59 06:59 18:59 Intake Total 480 Output Total 280 200 Balance -280 280 Weight 85.7 kg 85.5 kg Intake: Oral 480 Output: Urine 280 200 Other: Voiding Method Urinal Urinal ABP, PAP, CO, CI - Last Documented Arterial Blood Pressure 88/52 Pulmonary Artery Pressure 31/15 Cardiac Output 7.2 Cardiac Index 3.6 - Constitutional General appearance: Present: cooperative, mild distress - Respiratory Details: Lungs sounds diminished with faint expiratory wheezes heard bilaterally. Respirations even but slightly tachypneic. Currently on room air. Effective cough. Able to achieve 2000 mL on his incentive spirometer. - Cardiovascular Details: S1, S2 present. Regular rate and rhythm, normal sinus rhythm on telemetry. Chest stable. Heart hugger in place with patient demonstrating appropriate use. No edema present. Teds, SCDs present. - Gastrointestinal Gastrointestinal Comment(s): Abdomen soft, nontender, nondistended. Active bowel sounds 4 quadrants. Tolerating diet. - Genitourinary Genitourinary Comment(s): Continues to void clear, yellow urine - Integumentary Integumentary Comment(s): Anterior chest incision well approximated with Dermabond dressing. Left lower extremity EVH site well approximated. - Musculoskeletal Musculoskeletal: Present: gait normal, strength equal bilaterally - Psychiatric Psychiatric: Present: A&O x's 3, appropriate affect, intact judgment & insight - Allied health notes Allied health notes reviewed: social work - Labs CBC & Chem 7: 08/19/16 05:38 08/19/16 05:38 Labs: Abnormal Lab Results - Last 24 Hours (Table) 08/18/16 08/18/16 08/18/16 Range/Units 11:40 16:24 20:44 WBC (3.8-10.6) k/uL RBC (4.30-5.90) m/uL Hgb (13.0-17.5) gm/dL Hct (39.0-53.0) % Plt Count (150-450) k/uL BUN (9-20) mg/dL Glucose (74-99) mg/dL POC Glucose (mg/dL) 139 H 126 H 139 H (75-99) mg/dL 08/19/16 08/19/16 08/19/16 Range/Units 02:09 05:38 05:38 WBC 14.9 H (3.8-10.6) k/uL RBC 2.63 L (4.30-5.90) m/uL Hgb 8.2 L (13.0-17.5) gm/dL Hct 25.9 L (39.0-53.0) % Plt Count 481 H (150-450) k/uL BUN 24 H (9-20) mg/dL Glucose 106 H (74-99) mg/dL POC Glucose (mg/dL) 113 H (75-99) mg/dL 08/19/16 Range/Units 06:20 WBC (3.8-10.6) k/uL RBC (4.30-5.90) m/uL Hgb (13.0-17.5) gm/dL Hct (39.0-53.0) % Plt Count (150-450) k/uL BUN (9-20) mg/dL Glucose (74-99) mg/dL POC Glucose (mg/dL) 121 H (75-99) mg/dL Assessment and Plan (1) COPD (chronic obstructive pulmonary disease) Status: Acute (2) Hypertension Status: Acute (3) Hyperlipidemia Status: Acute (4) Non-STEMI (non-ST elevated myocardial infarction) Status: Acute Plan: 1. Continue ASA, statin, BB, heparin, Plavix, ARB. 2. Pain control with recommendations from Dr. Bradshaw 3. Continue to ambulate in hallway. 4. LifeVest ordered for discharge, however patient's insurance is declining to pay for LifeVest. 5. GI/DVT prophylaxis 6. Discharge planning per case management/social work. Waiting for insurance authorization as well as facility willing to accept patient. Patient needs to be admitted to rehab facility as he is homeless and is at high risk for sudden cardiac and is unable to pay for a LifeVest. Repeat echocardiogram shows ejection fraction 25-30%. 7. Due to the patient's shortness of breath this morning and white blood cell count of 14.9 will get chest x-ray. Time with Patient: Greater than 30
[2016-08-19] MEDS: LORazepam 1 MG TAB PO PRN ×2 (08:04→16:14)
--- NOTE | 2016-08-19 08:04 | XR ---
EXAMINATION TYPE: XR chest 2V DATE OF EXAM: 08/19/2016 7:49 AM COMPARISON: Chest x-ray from 4 days ago. HISTORY: Post open cardiac surgery. TECHNIQUE: Frontal and lateral views of the chest are obtained. FINDINGS: Post CABG changes with mediastinal clips and sternal wires is redemonstrated. There is chr onic parenchymal change with small bilateral pleural effusions identified as there is blunting of pos terior costophrenic angles. There is associated patchy bibasilar atelectasis. Upper lungs are clear w ithout pneumothorax. The cardiac silhouette size is stable and mildly enlarged. The osseous struct ures are intact. IMPRESSION: Chronic parenchymal change and mild cardiomegaly with small bilateral pleural effusions now present. Associated patchy bibasilar atelectasis is seen.
[2016-08-19] MEDS: NICOTINE 21MG/24HR PATCH TRANSDERM SCH (08:06)
[2016-08-19] MEDS: ASPIRIN 325 MG TAB PO SCH (08:08)
[2016-08-19] MEDS: HEPARIN SODIUM,PORCINE 5,000 UNIT/ML 1 ML VIAL SQ SCH ×2 (08:08→16:14)
[2016-08-19] MEDS: METOPROLOL TARTRATE 50 MG TAB PO SCH ×2 (08:09→20:59)
[2016-08-19] MEDS: ATORVASTATIN 40 MG TAB PO SCH (08:10)
[2016-08-19] MEDS: CLOPIDOGREL 75 MG TAB PO SCH (08:10)
[2016-08-19] MEDS: MUPIROCIN 2% OINT 22 GM TUBE NASAL SCH ×2 (08:10→21:01)
[2016-08-19] MEDS: BUDESONIDE 0.5 MG/2 ML NEBU INHALATION SCH ×2 (08:32→20:25)
[2016-08-19] MEDS: IPRATROPIUM-ALBUTEROL 3 ML NEB INHALATION SCH ×4 (08:32→20:25)
[2016-08-19 11:35] LABS: Glucose,Whole Blood 118 mg/dL (75-99)
[2016-08-19] MEDS: LOSARTAN 25 MG TAB PO SCH (12:18)
[2016-08-19 16:51] LABS: Glucose,Whole Blood 116 mg/dL (75-99)
--- NOTE | 2016-08-19 16:54 | PN ---
DATE OF SERVICE: 08/19/2016 CHIEF COMPLAINT: Status post coronary artery bypass graft. HISTORY OF PRESENT ILLNESS: This gentleman is doing fairly well. Today he is feeling short of breath and weak. He denies any chest pain, fever, chills, cough, neurologic changes, et cetera. PHYSICAL EXAMINATION: He does look weak and he is pale. Breath sounds are heard bilaterally. He sounds like he is in sinus rhythm. IMPRESSIONS: 1. Status post coronary artery bypass graft. 2. Chronic obstructive pulmonary disease. PLAN: Follow with Cardiology. It is hoped that he will be able to go home relatively soon.
[2016-08-19 20:19] LABS: Glucose,Whole Blood 141 mg/dL (75-99)
[2016-08-19] MEDS: SENNOSIDES-DOCUSATE SODIUM 1 EACH TAB PO SCH (20:59)
[2016-08-19] MEDS: KETOROLAC 30 MG/ML 1 ML VIAL IVP PRN (22:17)
[2016-08-20] MEDS: HEPARIN SODIUM,PORCINE 5,000 UNIT/ML 1 ML VIAL SQ SCH ×4 (00:45→22:05)
[2016-08-20 02:03] LABS: Glucose,Whole Blood 119 mg/dL (75-99)
[2016-08-20] MEDS: KETOROLAC 30 MG/ML 1 ML VIAL IVP PRN ×2 (04:08→14:58)
[2016-08-20 06:55] LABS: Glucose,Whole Blood 125 mg/dL (75-99)
[2016-08-20] MEDS: INSULIN LISPRO (humaLOG) 300 UNIT/3 ML VIAL SQ SCH ×4 (06:56→22:04)
--- NOTE | 2016-08-20 08:00 | P.PN ---
<Ryann Bishop - Last Filed: 08/20/16 07:56> Subjective Principal diagnosis: Double vessel coronary artery disease with severe left ventricular dysfunction, status post prior myocardial infarction and stenting to his right coronary artery and circumflex system around 4 years ago. Hypertension. Hyperlipidemia. Tobacco abuse with severe emphysematous changes in both lungs. Mild mitral valve regurgitation. POD #10 triple coronary artery bypass grafting using the left internal mammary artery to the left anterior descending artery, reverse saphenous vein graft from the aorta to the diagonal artery, reverse saphenous vein graft from the aorta to the posterior descending artery. Endoscopic harvesting of the left greater saphenous vein from groin to below knee level. Intraoperative transesophageal echocardiogram and epi-aortic scanning. Intraoperative graft flow measurements. I Patient currently sitting up in bed in no apparent distress. Has no new complaints at this time. Objective - Vital Signs Vital signs: Vital Signs Temp 97.4 F L 08/20/16 03:23 Pulse 64 08/20/16 03:23 Resp 16 08/20/16 03:23 BP 101/71 08/20/16 03:23 Pulse Ox 91 L 08/20/16 03:23 Intake & Output 08/19/16 08/20/16 08/20/16 18:59 06:59 18:59 Intake Total 646 Output Total 200 Balance 646 -200 Weight 85.8 kg Intake: IV 20 Invasive Line 8 20 Oral 626 Output: Urine 200 Other: Voiding Method Urinal # Voids 1 ABP, PAP, CO, CI - Last Documented Arterial Blood Pressure 88/52 Pulmonary Artery Pressure 31/15 Cardiac Output 7.2 Cardiac Index 3.6 - Constitutional General appearance: Present: cooperative, no acute distress - Respiratory Details: Lungs sounds diminished bilaterally. Respirations even, nonlabored. Remains on room air. Effective cough. - Cardiovascular Details: S1, S2 present. Regular rate and rhythm, normal sinus rhythm on telemetry. No events noted overnight. Chest stable. No edema present. Heart hugger in place with patient demonstrating appropriate use. Teds, SCDs present. - Gastrointestinal Gastrointestinal Comment(s): Abdomen soft, nontender, nondistended. Active bowel sounds 4 quadrants. Tolerating diet. - Genitourinary Genitourinary Comment(s): Continues to void clear, yellow urine. - Integumentary Integumentary Comment(s): Anterior chest incision well approximated, covered with Dermabond. Left lower extremity EVH site well approximated. - Musculoskeletal Musculoskeletal: Present: gait normal, strength equal bilaterally - Psychiatric Psychiatric: Present: A&O x's 3, appropriate affect, intact judgment & insight - Allied health notes Allied health notes reviewed: nursing - Labs CBC & Chem 7: 08/19/16 05:38 08/19/16 05:38 Labs: Abnormal Lab Results - Last 24 Hours (Table) 08/19/16 08/19/16 08/19/16 Range/Units 11:33 16:48 20:17 POC Glucose (mg/dL) 118 H 116 H 141 H (75-99) mg/dL 08/20/16 08/20/16 Range/Units 02:02 06:48 POC Glucose (mg/dL) 119 H 125 H (75-99) mg/dL Assessment and Plan (1) COPD (chronic obstructive pulmonary disease) Status: Acute (2) Hypertension Status: Acute (3) Hyperlipidemia Status: Acute (4) Non-STEMI (non-ST elevated myocardial infarction) Status: Acute Plan: 1. Continue ASA, statin, BB, heparin, Plavix, ARB. 2. Pain control with recommendations from Dr. Bradshaw 3. Continue to ambulate in hallway. 4. LifeVest appropriate for discharge however patient's insurance does not cover LifeVest. 5. GI/DVT prophylaxis 6. Discharge planning per case management/social work. Waiting for insurance authorization as well as facility willing to accept patient. Patient needs to be admitted to rehab facility as he is homeless and is at high risk for sudden cardiac and is unable to pay for a LifeVest. Repeat echocardiogram shows ejection fraction 25-30%. 7. Patient is ready for discharge, just waiting for placement and insurance authorization. Time with Patient: Less than 30 <Gino Fregoso - Last Filed: 08/20/16 11:10> Objective - Vital Signs Vital signs: Vital Signs Temp 97.8 F 08/20/16 08:00 Pulse 92 08/20/16 09:27 Resp 22 08/20/16 09:44 BP 107/59 08/20/16 08:00 Pulse Ox 86 L 08/20/16 09:44 Intake & Output 08/19/16 08/20/16 08/20/16 18:59 06:59 18:59 Intake Total 646 10 Output Total 200 Balance 646 -200 10 Weight 85.8 kg Intake: IV 20 10 Invasive Line 8 20 10 Oral 626 Output: Urine 200 Other: Voiding Method Urinal # Voids 1 ABP, PAP, CO, CI - Last Documented Arterial Blood Pressure 88/52 Pulmonary Artery Pressure 31/15 Cardiac Output 7.2 Cardiac Index 3.6 - Labs CBC & Chem 7: 08/19/16 05:38 08/19/16 05:38 Labs: Abnormal Lab Results - Last 24 Hours (Table) 08/19/16 08/19/16 08/19/16 Range/Units 11:33 16:48 20:17 POC Glucose (mg/dL) 118 H 116 H 141 H (75-99) mg/dL 08/20/16 08/20/16 Range/Units 02:02 06:48 POC Glucose (mg/dL) 119 H 125 H (75-99) mg/dL Assessment and Plan Plan: The patient was seen and examined. I agree with the above assessment and plan. He had no new issues overnight. His pain appears to be relatively controlled this morning. He is ambulating without difficulty. His oxygen saturation was appeared to be adequate on room air. We're awaiting placement.
[2016-08-20] MEDS: MUPIROCIN 2% OINT 22 GM TUBE NASAL SCH ×2 (09:13→22:04)
[2016-08-20] MEDS: BUDESONIDE 0.5 MG/2 ML NEBU INHALATION SCH ×2 (09:13→20:06)
[2016-08-20] MEDS: IPRATROPIUM-ALBUTEROL 3 ML NEB INHALATION SCH ×4 (09:13→20:06)
[2016-08-20] MEDS: ASPIRIN 325 MG TAB PO SCH (09:14)
[2016-08-20] MEDS: NICOTINE 21MG/24HR PATCH TRANSDERM SCH (09:14)
[2016-08-20] MEDS: PANTOPRAZOLE 40 MG TABLET PO SCH (09:14)
[2016-08-20] MEDS: ATORVASTATIN 40 MG TAB PO SCH (09:14)
[2016-08-20] MEDS: METOPROLOL TARTRATE 50 MG TAB PO SCH ×2 (09:15→22:04)
[2016-08-20] MEDS: CLOPIDOGREL 75 MG TAB PO SCH (09:15)
[2016-08-20] MEDS: LORazepam 1 MG TAB PO PRN ×2 (09:48→22:06)
[2016-08-20] MEDS: LOSARTAN 25 MG TAB PO SCH (11:28)
[2016-08-20 11:56] LABS: Glucose,Whole Blood 130 mg/dL (75-99)
--- NOTE | 2016-08-20 13:58 | PN ---
Beto Goodman is seen, evaluated and examined on sixth floor. This patient is a 55-year-old male. He is postop for bypass surgery. Patient is clinically doing better. Still has some component of cough and chest pain during coughing, but respiratory status is more stable. His blood pressure is 90/50, respiratory rate 18, pulse 78, temperature 98, saturation of 97% on 2 liters oxygen. HEENT: Unremarkable. NECK: Supple. LUNGS: Good air entry bilaterally with. HEART: Regular rate and rhythm. ABDOMEN: Soft. NEUROLOGICAL EXAMINATION: Otherwise, awake and alert. Labs reviewed. White cell count is 14,900. Hemoglobin 8.2, hematocrit 25, platelets 481,000. The chest x-ray performed earlier today reviewed and compared with the prior x-ray revealed and chronic parenchymal changes, borderline cardiomegaly with a small basal atelectasis and pleural effusions noted. IMPRESSION: 1. Coronary artery disease, status post coronary artery bypass graft. 2. Chronic obstructive pulmonary disease. 3. Small basal atelectasis and effusion. 4. Non-ST segment elevated myocardial infarction 5. Cardiomyopathy with acute systolic heart failure, ejection fraction of 25 to 30%. Will follow.
[2016-08-20 16:46] LABS: Glucose,Whole Blood 109 mg/dL (75-99)
[2016-08-20 21:43] LABS: Glucose,Whole Blood 137 mg/dL (75-99)
[2016-08-21 01:52] VITALS: RESP 18
[2016-08-21] MEDS: SENNOSIDES-DOCUSATE SODIUM 1 EACH TAB PO SCH (02:09)
[2016-08-21 02:17] LABS: Glucose,Whole Blood 138 mg/dL (75-99)
[2016-08-21] MEDS: LORazepam 1 MG TAB PO PRN (05:38)
[2016-08-21 06:35] LABS: Glucose,Whole Blood 107 mg/dL (75-99)
[2016-08-21] MEDS: INSULIN LISPRO (humaLOG) 300 UNIT/3 ML VIAL SQ SCH ×2 (06:38→11:41)
[2016-08-21] MEDS: PANTOPRAZOLE 40 MG TABLET PO SCH (06:44)
--- NOTE | 2016-08-21 07:46 | PN ---
A 55-year-old male who is seen, evaluated, and examined on the sixth floor. Patient has independent cough and shortness of breath, but CAD has improved, breathing more comfortably. No obvious distress present. Hemodynamic status is stable. Last set of vitals include blood pressure is 100/70, respirations 16, pulse 64, temperature 97, saturation 91%. HEENT EXAMINATION: Otherwise, unremarkable. NECK: Supple. LUNGS: Good air entry bilaterally. HEART: Regular rate and rhythm. ABDOMEN: Soft. NEUROLOGICAL EXAMINATION: She is otherwise, awake and alert. The patient is status post day #10 of CABG x3 with JACKSON to the LAD and saphenous vein graft to the diagonal and PAD to PDA. Patient has non-ST segment elevated [place]. Also had a history of prior stents in the RCA and circumflex about 4 years ago with active problems associated with COPD, dyslipidemia, hypertension. Patient has been recovering steadily from the surgery and some subQ emphysema which is clinically as well as radiographically improving. HEENT EXAMINATION: She is otherwise unremarkable. NECK: Supple without lymphadenopathy, jugular venous distention or carotid bruit. LUNGS: Bilateral good air entry. A few crackles are present. HEART: Regular rate and rhythm. S1 and S2 audible. Abdomen is soft. NEUROLOGICAL EXAMINATION: Otherwise, awake, alert. Labs reviewed. Medications reviewed. Last chest x-ray performed on 08/19/2016 reviewed as well. Some prominent interstitium, as well as small pleural effusion, has been seen with subsegment atelectasis, likely postoperative changes. No new labs are done today. Medications include DuoNeb unit dose, updraft 4 times a day and as needed, aspirin 325 mg daily, Lipitor 40 mg daily, Pulmicort 2 times a day, Plavix 75 mg daily, heparin 5000 units subQ q.8 hourly, Toradol as needed, Ativan as needed, Cozaar 25 mg daily, Milk of magnesia, Lopressor 50 mg 2 times a day, ( ) phos replacement protocol. Also on Protonix, Zofran. IMPRESSION: 1. Coronary artery disease, status post coronary artery bypass graft x3. 2. Severe chronic obstructive pulmonary disease, emphysema. 3. Basal atelectasis and small pleural effusion, postoperative in nature. 4. Dyslipidemia, hypertension, hypertensive cardiovascular disease. Plan is to continue deep breathing exercises, incentive spirometry. Continue breathing treatments. Increase activity as tolerated. Will follow.
[2016-08-21] MEDS: IPRATROPIUM-ALBUTEROL 3 ML NEB INHALATION SCH ×2 (08:04→11:57)
[2016-08-21] MEDS: BUDESONIDE 0.5 MG/2 ML NEBU INHALATION SCH (08:04)
--- NOTE | 2016-08-21 08:40 | P.PN ---
Subjective 55-year-old being seen on rounds this morning currently is resting in bed states he slept well last night denies chest pain dizziness or lightheadedness or shortness of breath discharge plan and progress. Patient is postop day 11 triple coronary artery bypass grafting. Objective - Vital Signs Vital signs: Vital Signs Temp 96.9 F L 08/21/16 04:00 Pulse 68 08/21/16 04:00 Resp 18 08/21/16 04:00 BP 101/57 08/21/16 04:00 Pulse Ox 90 L 08/21/16 04:00 Intake & Output 08/20/16 08/21/16 08/21/16 18:59 06:59 18:59 Intake Total 120 Balance 120 Weight 85.9 kg Intake: IV 20 Invasive Line 8 10 Normal Saline 10 Oral 100 Other: Voiding Method Toilet Urinal # Voids 2 ABP, PAP, CO, CI - Last Documented Arterial Blood Pressure 88/52 Pulmonary Artery Pressure 31/15 Cardiac Output 7.2 Cardiac Index 3.6 - Exam Physical exam 55-year-old resting in bed does not appear in any acute distress oriented 3 Lungs essentially clear adequate air movement on room air Heart S1-S2 audible and regular denying chest pain monitor sinus hugger in place Abdomen soft nontender states urinating no difficulty no frequent stooling no nausea vomiting Extremities no edema noted - Labs CBC & Chem 7: 08/19/16 05:38 08/19/16 05:38 Labs: Abnormal Lab Results - Last 24 Hours (Table) 08/20/16 08/20/16 08/20/16 Range/Units 11:54 16:45 21:20 POC Glucose (mg/dL) 130 H 109 H 137 H (75-99) mg/dL 08/21/16 08/21/16 Range/Units 02:15 06:32 POC Glucose (mg/dL) 138 H 107 H (75-99) mg/dL Assessment and Plan Plan: Impression Present on admission shortness of breath suspect due to an acute exacerbation of COPD Current every day smoker 1 pack a day greater than a 20 year history Chronic lower back pain with bilateral carpal tunnel per history with narcotic dependency on oxycodone 15 mg 4 times a day History of asthma Mildly elevated troponins present on admission suspect due to a non-ST elevated [place] History of coronary artery disease with prior coronary stenting right coronary and circumflex 2013 CAT scan of the chest no evidence of pulmonary emboli positive for bullous emphysema This admission episode nonsustained V. 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 Maribel Gooden nurse practitioner acting as a scribe for dr stewart
[2016-08-21] MEDS: HEPARIN SODIUM,PORCINE 5,000 UNIT/ML 1 ML VIAL SQ SCH (09:09)
[2016-08-21] MEDS: MUPIROCIN 2% OINT 22 GM TUBE NASAL SCH (09:10)
[2016-08-21] MEDS: METOPROLOL TARTRATE 50 MG TAB PO SCH (09:10)
[2016-08-21] MEDS: NICOTINE 21MG/24HR PATCH TRANSDERM SCH (09:10)
[2016-08-21] MEDS: ASPIRIN 325 MG TAB PO SCH (09:11)
[2016-08-21] MEDS: ATORVASTATIN 40 MG TAB PO SCH (09:11)
[2016-08-21] MEDS: CLOPIDOGREL 75 MG TAB PO SCH (09:11)
[2016-08-21 10:19] LABS: Basophils % (A) 0 %; CH 31.1; CHCM 31.8; Eosinophils # (A) 0.6 k/uL (0-0.7); Eosinophils % (A) 4 %; HCT 24.7 % (39.0-53.0); HDW 2.65; HGB 7.8 gm/dL (13.0-17.5); Hypochromasia Slight; Luc # (Auto) 0.24; Luc % (Auto) 2; Lymphocytes # (A) 1.6 k/uL (1.0-4.8); Lymphocytes % (A) 12 %; MCH 30.9 pg (25.0-35.0); MCHC 31.5 g/dL (31.0-37.0); MCV 98.1 fL (80.0-100.0); Mean Platelet Volume 6.5; Monocytes # (A) 0.7 k/uL (0-1.0); Monocytes % (A) 6 %; Neutrophils % (A) 76 %; RBC 2.52 m/uL (4.30-5.90); WBC 13.2 k/uL (3.8-10.6); WBC (Perox) 13.66
[2016-08-21 10:32] LABS: ALT 61 U/L (21-72); AST 29 U/L (17-59); Alkaline Phosphatase 60 U/L (38-126); Anion Gap 9 mmol/L; Blood Urea Nitrogen 22 mg/dL (9-20); Calcium 8.6 mg/dL (8.4-10.2); Carbon Dioxide 28 mmol/L (22-30); Chloride 105 mmol/L (98-107); Glucose 114 mg/dL (74-99); Non-African American GFR(MDRD) >60 (>60 ml/min/1.73 sqM); Potassium 4.5 mmol/L (3.5-5.1); Sodium 142 mmol/L (137-145); Total Bilirubin 0.3 mg/dL (0.2-1.3); Total Protein 5.6 g/dL (6.3-8.2)
[2016-08-21 11:39] LABS: Glucose,Whole Blood 119 mg/dL (75-99)
[2016-08-21 12:35] VITALS: BP 91/53; PULSE 85; TEMP 98.6
[2016-08-21] MEDS: LOSARTAN 25 MG TAB PO SCH (12:47)
--- NOTE | 2016-08-21 13:34 | P.PN ---
Subjective Principal diagnosis: CAD Patient seen and examined. Patient states he is feeling good. He is hoping to go to rehab soon. He says his is a little more short of breath but the breathing treatments are helping. He states he does cough first thing in the morning but denies fevers, chills. Patient has been afebrile. Objective - Vital Signs Vital signs: Vital Signs Temp 98.6 F 08/21/16 12:00 Pulse 96 08/21/16 12:13 Resp 18 08/21/16 12:00 BP 91/53 08/21/16 12:00 Pulse Ox 90 L 08/21/16 12:00 Intake & Output 08/20/16 08/21/16 08/21/16 18:59 06:59 18:59 Intake Total 120 250 Balance 120 250 Weight 85.9 kg Intake: IV 20 10 Invasive Line 8 10 Normal Saline 10 10 Oral 100 240 Other: Voiding Method Toilet Urinal # Voids 2 ABP, PAP, CO, CI - Last Documented Arterial Blood Pressure 88/52 Pulmonary Artery Pressure 31/15 Cardiac Output 7.2 Cardiac Index 3.6 - Exam Gen.: Alert and oriented x 3, NAD Cardiovascular: Regular rate and rhythm, S1/S2 Lungs: Diminished breath sounds bilaterally Abdomen: Soft nontender nondistended positive bowel sounds Extremities: no edema - Labs CBC & Chem 7: 08/21/16 09:59 08/21/16 09:59 Labs: Abnormal Lab Results - Last 24 Hours (Table) 08/20/16 08/20/16 08/21/16 Range/Units 16:45 21:20 02:15 WBC (3.8-10.6) k/uL RBC (4.30-5.90) m/uL Hgb (13.0-17.5) gm/dL Hct (39.0-53.0) % Plt Count (150-450) k/uL Neutrophils # (1.3-7.7) k/uL BUN (9-20) mg/dL Glucose (74-99) mg/dL POC Glucose (mg/dL) 109 H 137 H 138 H (75-99) mg/dL Total Protein (6.3-8.2) g/dL Albumin (3.5-5.0) g/dL 08/21/16 08/21/16 08/21/16 Range/Units 06:32 09:59 09:59 WBC 13.2 H (3.8-10.6) k/uL RBC 2.52 L (4.30-5.90) m/uL Hgb 7.8 L (13.0-17.5) gm/dL Hct 24.7 L (39.0-53.0) % Plt Count 544 H (150-450) k/uL Neutrophils # 10.0 H (1.3-7.7) k/uL BUN 22 H (9-20) mg/dL Glucose 114 H (74-99) mg/dL POC Glucose (mg/dL) 107 H (75-99) mg/dL Total Protein 5.6 L (6.3-8.2) g/dL Albumin 2.8 L (3.5-5.0) g/dL 08/21/16 Range/Units 11:38 WBC (3.8-10.6) k/uL RBC (4.30-5.90) m/uL Hgb (13.0-17.5) gm/dL Hct (39.0-53.0) % Plt Count (150-450) k/uL Neutrophils # (1.3-7.7) k/uL BUN (9-20) mg/dL Glucose (74-99) mg/dL POC Glucose (mg/dL) 119 H (75-99) mg/dL Total Protein (6.3-8.2) g/dL Albumin (3.5-5.0) g/dL Assessment and Plan Plan: Acute exacerbation of COPD Active tobacco abuse Emphysema Coronary artery disease s/p CABG NSTEMI Obesity Hypertension Dyslipidemia History of prior CO Maintain saturation greater than equal to 88% Bronchodilators and Pulmicort Continue Singulair Pepcid Smoking cessation is highly recommended Incentive spirometry and pulmonary hygiene PT and OT, OOB as able Discharge planning in progress, awaiting insurance verification
--- NOTE | 2016-08-21 13:54 | P.DS ---
Providers Date of admission: 08/07/16 12:21 Attending physician: Candido Matos Consults: 08/08/16 13:32 Consult Physician Routine Consulting Provider: Candido Matos Consult Reason/Comments: cabg Do you want consulting provider notified?: Yes 08/08/16 16:25 Consult Anesthesia Routine Consulting Provider: Anesthesia,Services Consult Reason/Comments: Cardiac Surgery Pre-Op 08/08/16 17:00 Consult Physician Routine Consulting Provider: Kelvin Marroquin Consult Reason/Comments: pulmonary management Do you want consulting provider notified?: Yes 08/09/16 13:05 Consult Physician Routine Consulting Provider: Arnoldo Rai Consult Reason/Comments: medical management Do you want consulting provider notified?: Already Contacted Primary care physician: Arnoldo Rai - Discharge Diagnosis(es) (1) COPD (chronic obstructive pulmonary disease) Current Visit: Yes Status: Acute (2) Hypertension Current Visit: Yes Status: Acute (3) Hyperlipidemia Current Visit: Yes Status: Acute (4) Non-STEMI (non-ST elevated myocardial infarction) Current Visit: Yes Status: Acute Hospital Course: FINAL DIAGNOSIS: 1.[Triple-vessel coronary artery disease with severe left ventricular dysfunction, status post prior myocardial infarction and stenting to his right coronary artery and circumflex artery] 2.[Hypertension] 3.[Hyperlipidemia] 4.[Tobacco abuse with severe emphysematous changes in both lungs] 5.[Mild mitral valve regurgitation] PRINCIPAL PROCEDURE: [] 1.[Triple coronary artery bypass grafting using the left internal mammary artery to the left anterior descending artery, reverse saphenous vein graft from the aorta to the diagonal artery, reverse saphenous vein graft from the aorta to the posterior descending artery] 2.[Endoscopic harvesting of the left greater saphenous vein from groin to below knee level] 3.[Intraoperative transesophageal echocardiogram and epi-aortic scanning] 4.[Intraoperative graft flow measurements using the Medistim machine] HISTORY OF PRESENT ILLNESS: [This 65-year-old gentleman with a severe tobacco abuse history, hypertension, hyperlipidemia who underwent stenting for his RCA and circumflex system around [address] elevation myocardial infarction with lack of follow-up presented with chest pain over several weeks to several months with daily nitroglycerin usage interest of breath with exertion. Workup included a 2-D echo that showed severe left ventricular dysfunction and mild mitral valve regurgitation. Cardiac catheterization showed proximal LAD disease with severe disease diagonal artery that was essentially supplying the lateral wall, patent circumflex stent and system, moderate stenosis of the right coronary artery proximally and patient stent. Surgery was discussed in detail with the patient by Dr. Matos, all risks benefits and alternatives were discussed, and patient consented to proceed with surgery.] HOSPITAL COURSE:[This gentleman was kept inpatient secondary to this. Disease. On 08/10/2016 he was taken to the operating room. Dr. Matos performed urgent triple coronary artery bypass grafting using the left internal mammary artery to the left anterior descending artery, reverse saphenous vein graft from the aorta to the diagonal artery, reverse saphenous vein graft from the aorta to the posterior descending artery, endoscopic harvesting of the left greater saphenous vein from groin to below knee level, intraoperative transesophageal echocardiogram and epi-aortic scanning, and intraoperative graft flow measurements using the Medistim machine. Upon completion of the surgery, patient was subsequently transferred to the cardiovascular intensive care unit where he was recovered, monitored hemodynamically, and where he progressed to cardiac rehabilitation phase 1. He was extubated, all lines tubes and drips were discontinued when appropriate, and he was subsequently transferred to [address] [place] [address] for further monitoring and rehabilitation. His oxygen was titrated down, he continued to work with physical therapy, and was ready to be discharged rehabilitation on postop day #11 as he is homeless and has no support. We recommended LifeVest at discharge as his ejection fraction is 25-30% making him at high risk for sudden cardiac , however his insurance refused to pay for the LifeVest and patient cannot afford it on his own.] COMPLICATIONS: [The patient is no postoperative complications.] CONSULTATIONS: 1.[Dr. Ch for cardiology] 2.[Dr. Toma montes for pulmonology] 3.[Dr. Rai for medical management] DISCHARGE INSTRUCTIONS: 1. No driving for 4 weeks, or until physician gives their ok. 2. The patient should sleep in their own bed, no medical bed needed. 3. Stairs are not an issue. If the bedroom is upstairs, it is advised that the patient go up at night and down in the morning for the first week. Go slowly, using handrail and take 1 step at a time. 4. ULICES hose are to be worn for 30 days or until physician discontinues. 5. Heart hugger is to be worn 100% of the time until physician discontinues.( except when showering) 6. No lifting, pushing, or pulling more than 10 pounds for 12 weeks. The physician will advise of any restriction changes. 7. The patient is expected to continue the prescribed walking program. 8. Continue pain control per as needed orders. 9. Continue with incentive spirometry and splinting/heart hugger until otherwise directed by the physician. 10. Must shower daily using liquid antibacterial soap and a separate white washcloth for each individual incision. 11. Routine sternal incision care. HOME HEALTH SERVICES TO PROVIDE: RN SKILLED HOME CARE SERVICES FOR POST-OP SURGICAL PATIENTS WITH THE FOLLOWING: Coronary Artery Bypass Surgery (CABG), Mitral Valve Replacement/ Repair ( MVR), Aortic Valve Replacement/Repair (AVR) RN TO CONTINUE EDUCATION FROM ``ROAD TO A HEALTH HEART PATIENT EDUCATION MANUAL (GIVEN TO PATIENT IN THE HOSPITAL) MEDICATION RECONCILIATION WITH EDUCATION NEEDED ON FIRST HOME VISIT EMPHASIZE IMPORTANCE OF WEARING BREAST SUPPORT/HEART HUGGER ENCOURAGE USE OF INCENTIVE SPIROMETER 10 X EVERY HOUR WHILE AWAKE ENCOURAGE UTILIZATION OF LOWER EXTREMITY COMPRESSION STOCKINGS/ULICES HOSE and ELEVATE LEGS ABOVE LEVEL OF HEART WHILE AT REST. ENCOURAGE AMBULATION 3-5x/day INCREASING TOLERATES, WHILE AVOID EXTREMES IN TEMPERATURE FREQUENCY: RN TO OPEN THE PATIENT WITHIN 24 HOURS OF DISCHARGE FROM THE HOSPITAL WITH TELEHEALTH INSTALLED AT [facility] [place], [place], RN TO VISIT 2-3 X A WEEK FOR 4 WEEKS ESTABLISHED BY PATIENT NEEDS. REMOVAL OF SUTURES: NURSING SERVICES TO REMOVE SUTURES TWO WEEKS POST SURGICAL DATE [ 08/24/16 ]. If any questions regarding suture removal please call the office at [phone]. LABORATORY: CBC, CMP TO BE DRAWN ON THE THIRD DAY HOME, 08/24/2016 (RAN STAT ) FAX RESULTS TO [phone]. TELEHEALTH PARAMETERS: WEIGHT: NOTIFY MD OF WEIGHT GAIN OF 2 LBS IN 24 HOURS OR 5 LBS IN ONE WEEK HR: NOTIFY MD OF HR <55 BPM OR HR>100 BPM BP: NOTIFY MD IF BP <90/55 OR BP>140/100 O2 SAT: NOTIFY MD IF PO2<93% ON ROOM AIR SEND TELEHEALTH REPORT TO DIRECTOR INTELLIGENCE ANALYSIS PROGRAMS AND CARDIOVASCULAR SURGEON THE FIRST WEEK OF CARE AND THEN BI-WEEKLY. PLEASE ADDITIONALLY COMMUNICATE ANY ABNORMALS AND NEW FINDINGS TO THE SURGEONS OFFICE. Plan - Discharge Summary New Discharge Prescriptions: oxyCODONE HCL 15 mg PO Q4H PRN 7 Days PRN Reason: Pain Discharge Medication List Clopidogrel [Plavix] 75 mg PO DAILY 08/09/15 [History] Albuterol Sulfate [Proventil Hfa] 1 - 2 puff INHALATION RT-Q6H PRN 08/06/16 [ History] Atorvastatin [Lipitor] 40 mg PO DAILY 08/06/16 [History] Budesonide/Formoterol Fumarate [Symbicort 160-4.5 Mcg Inhaler] 2 puff INHALATION RT-BID 08/06/16 [History] Aspirin 325 mg PO DAILY tab 08/21/16 [Rx] Budesonide [Pulmicort] 0.5 mg INHALATION RT-BID nebu 08/21/16 [Rx] Losartan [Cozaar] 25 mg PO 1200 tab 08/21/16 [Rx] Metoprolol Tartrate [Lopressor] 50 mg PO BID tab 08/21/16 [Rx] Nicotine 21Mg/24Hr Patch [Habitrol] 1 patch TRANSDERM DAILY patch 08/21/16 [Rx] Pantoprazole [Protonix] 40 mg PO AC-[id number] tablet. 08/21/16 [Rx] Sennosides-Docusate Sodium [Senokot-S] 2 tab PO HS #30 tab 08/21/16 [Rx] oxyCODONE HCL 15 mg PO Q4H PRN 7 Days 08/21/16 [Rx] Follow up Appointment(s)/Referral(s): Arnoldo Rai MD [Primary Care Provider] - 1-2 days Elsy Ch MD [STAFF PHYSICIAN] - 08/25/16 8:45 am Candido Matos MD [STAFF PHYSICIAN] - 09/08/16 12:00 pm Kelvin Marroquin MD [STAFF PHYSICIAN] - 1 Week Ambulatory/Diagnostic Orders: Complete Blood Count w/diff [LAB.AMB] Time Frame: 3 Days, Facility: [facility], Location: Laboratory [facility] Complete Blood Count w/diff [LAB.AMB] Time Frame: 3 Days, Facility: [facility], Location: Laboratory [place] Comprehensive Metabolic Panel [LAB.AMB] Time Frame: 3 Days, Facility: [facility], Location: Laboratory [facility] Comprehensive Metabolic Panel [LAB.AMB] Time Frame: 3 Days, Facility: [facility], Location: Laboratory [facility] Patient Instructions/Handouts: Ketorolac (By injection) Activity/Diet/Wound Care/Special Instructions: DISCHARGE INSTRUCTIONS: 1. No driving for 4 weeks, or until physician gives their ok. 2. The patient should sleep in their own bed, no medical bed needed. 3. Stairs are not an issue. If the bedroom is upstairs, it is advised that the patient go up at night and down in the morning for the first week. Go slowly, using handrail and take 1 step at a time. 4. ULICES hose are to be worn for 30 days or until physician discontinues. 5. Heart hugger is to be worn 100% of the time until physician discontinues.( except when showering) 6. No lifting, pushing, or pulling more than 10 pounds for 12 weeks. The physician will advise of any restriction changes. 7. The patient is expected to continue the prescribed walking program. 8. Continue pain control per as needed orders. 9. Continue with incentive spirometry and splinting/heart hugger until otherwise directed by the physician. 10. Must shower daily using liquid antibacterial soap and a separate white washcloth for each individual incision. 11. Routine sternal incision care. HOME HEALTH SERVICES TO PROVIDE: RN SKILLED HOME CARE SERVICES FOR POST-OP SURGICAL PATIENTS WITH THE FOLLOWING: Coronary Artery Bypass Surgery (CABG), Mitral Valve Replacement/ Repair ( MVR), Aortic Valve Replacement/Repair (AVR) RN TO CONTINUE EDUCATION FROM ``ROAD TO A HEALTH HEART PATIENT EDUCATION MANUAL (GIVEN TO PATIENT IN THE HOSPITAL) MEDICATION RECONCILIATION WITH EDUCATION NEEDED ON FIRST HOME VISIT EMPHASIZE IMPORTANCE OF WEARING BREAST SUPPORT/HEART HUGGER ENCOURAGE USE OF INCENTIVE SPIROMETER 10 X EVERY HOUR WHILE AWAKE ENCOURAGE UTILIZATION OF LOWER EXTREMITY COMPRESSION STOCKINGS/ULICES HOSE and ELEVATE LEGS ABOVE LEVEL OF HEART WHILE AT REST. ENCOURAGE AMBULATION 3-5x/day INCREASING TOLERATES, WHILE AVOID EXTREMES IN TEMPERATURE FREQUENCY: RN TO OPEN THE PATIENT WITHIN 24 HOURS OF DISCHARGE FROM THE HOSPITAL WITH TELEHEALTH INSTALLED AT [facility] [place], [place], RN TO VISIT 2-3 X A WEEK FOR 4 WEEKS ESTABLISHED BY PATIENT NEEDS. REMOVAL OF SUTURES: NURSING SERVICES TO REMOVE SUTURES TWO WEEKS POST SURGICAL DATE [ 08/24/16 ]. If any questions regarding suture removal please call the office at [phone]. LABORATORY: CBC, CMP TO BE DRAWN ON THE THIRD DAY HOME, 08/24/2016 (RAN STAT ) FAX RESULTS TO [phone]. TELEHEALTH PARAMETERS: WEIGHT: NOTIFY MD OF WEIGHT GAIN OF 2 LBS IN 24 HOURS OR 5 LBS IN ONE WEEK HR: NOTIFY MD OF HR <55 BPM OR HR>100 BPM BP: NOTIFY MD IF BP <90/55 OR BP>140/100 O2 SAT: NOTIFY MD IF PO2<93% ON ROOM AIR SEND TELEHEALTH REPORT TO DIRECTOR INTELLIGENCE ANALYSIS PROGRAMS AND CARDIOVASCULAR SURGEON THE FIRST WEEK OF CARE AND THEN BI-WEEKLY. PLEASE ADDITIONALLY COMMUNICATE ANY ABNORMALS AND NEW FINDINGS TO THE SURGEONS OFFICE.
--- NOTE | 2016-08-21 13:55 | P.PN ---
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 Hypertension. Hyperlipidemia. Tobacco abuse with severe emphysematous changes in both lungs. Mild mitral valve regurgitation. POD #11 triple coronary artery bypass grafting using the left internal mammary artery to the left anterior descending artery, reverse saphenous vein graft from the aorta to the diagonal artery, reverse saphenous vein graft from the aorta to the posterior descending artery. Endoscopic harvesting of the left greater saphenous vein from groin to below knee level. Intraoperative transesophageal echocardiogram and epi-aortic scanning. Intraoperative graft flow measurements. I Patient currently sitting up in bed in no apparent distress. Has no new complaints at this time. Objective - Vital Signs Vital signs: Vital Signs Temp 96.9 F L 08/21/16 04:00 Pulse 68 08/21/16 04:00 Resp 18 08/21/16 04:00 BP 101/57 08/21/16 04:00 Pulse Ox 90 L 08/21/16 04:00 Intake & Output 08/20/16 08/21/16 08/21/16 18:59 06:59 18:59 Intake Total 120 Balance 120 Weight 85.9 kg Intake: IV 20 Invasive Line 8 10 Normal Saline 10 Oral 100 Other: Voiding Method Toilet Urinal # Voids 2 ABP, PAP, CO, CI - Last Documented Arterial Blood Pressure 88/52 Pulmonary Artery Pressure 31/15 Cardiac Output 7.2 Cardiac Index 3.6 - Constitutional General appearance: Present: cooperative, no acute distress - Respiratory Details: Lungs sounds diminished bilaterally. Respirations even, nonlabored. Currently on room air. Able to achieve 1750 mL on incentive spirometry, effective cough with productive yellow thick sputum. - Cardiovascular Details: S1, S2 present. Regular rate and rhythm, normal sinus rhythm on telemetry. Chest stable. No edema present. Heart hugger in place with patient demonstrating appropriate use. Teds, SCDs present. - Gastrointestinal Gastrointestinal Comment(s): Abdomen soft, nontender, nondistended. Active bowel sounds 4 quadrants. Tolerating diet. - Genitourinary Genitourinary Comment(s): Continues to void clear, yellow urine. - Integumentary Integumentary Comment(s): Anterior chest incision well approximated and covered with dry intact Dermabond dressing. Left lower extremity EVH site well approximated with Dermabond dressing. - Musculoskeletal Musculoskeletal: Present: gait normal, strength equal bilaterally - Psychiatric Psychiatric: Present: A&O x's 3, appropriate affect, intact judgment & insight - Allied health notes Allied health notes reviewed: social work - Labs CBC & Chem 7: 08/19/16 05:38 08/19/16 05:38 Labs: Abnormal Lab Results - Last 24 Hours (Table) 08/20/16 08/20/16 08/20/16 Range/Units 11:54 16:45 21:20 POC Glucose (mg/dL) 130 H 109 H 137 H (75-99) mg/dL 08/21/16 08/21/16 Range/Units 02:15 06:32 POC Glucose (mg/dL) 138 H 107 H (75-99) mg/dL Assessment and Plan (1) COPD (chronic obstructive pulmonary disease) Status: Acute (2) Hypertension Status: Acute (3) Hyperlipidemia Status: Acute (4) Non-STEMI (non-ST elevated myocardial infarction) Status: Acute Plan: 1. Continue ASA, statin, BB, heparin, Plavix, ARB. 2. Pain control with recommendations from Dr. Bradshaw 3. Continue to ambulate in hallway. 4. LifeVest appropriate for discharge however patient's insurance does not cover LifeVest. 5. GI/DVT prophylaxis 6. Discharge planning per case management/social work. Waiting for insurance authorization as well as facility willing to accept patient. Patient needs to be admitted to rehab facility as he is homeless and is at high risk for sudden cardiac and is unable to pay for a LifeVest. Repeat echocardiogram shows ejection fraction 25-30%. 7. Patient is ready for discharge, just waiting for placement and insurance authorization. Social work to check out of town sites for placement. Time with Patient: Less than 30
--- NOTE | 2016-08-21 21:22 | PN ---
DATE OF SERVICE: 08/20/2016 CHIEF COMPLAINT: Status post coronary artery bypass graft, shortness of breath and fever. HISTORY OF PRESENT ILLNESS: This gentleman is struggling. He ran a fever last night. He is having shortness of breath. He has had no chest pain. He has had no confusion, abdominal pain, difficulty urinating, etc. PHYSICAL EXAMINATION: He remains pale and he is weak. Skin was dry and lymph nodes not enlarged. Head, ears, eyes, nose, mouth, and throat are normal. The chest is fairly clear but breath sounds are diminished in the bases. CARDIAC: Unremarkable. ABDOMEN: Soft and nontender. IMPRESSION: 1. Fever, undetermined etiology. 2. Shortness of breath. 3. Chronic obstructive pulmonary disease. 4. Status post coronary artery bypass graft. PLAN: Repeat cultures and continue to monitor.
--- NOTE | 2016-08-21 21:50 | PN ---
DATE OF SERVICE: 08/21/2016 CHIEF COMPLAINT: Coronary artery disease, COPD, shortness of breath. HISTORY OF PRESENT ILLNESS: The gentleman is still having a lot of trouble with shortness of breath and malaise. Temperature has been down, however. PHYSICAL EXAMINATION: Remains pale and breath sounds are somewhat diminished throughout. Cardiac exam is unremarkable otherwise. IMPRESSION: 1. Status post coronary artery bypass graft. 2. Chronic obstructive pulmonary disease. 3. Fever, undetermined etiology. PLAN: Continue to follow with thoracic and cardiac surgery.
--- NOTE | 2016-08-22 12:42 | PN ---
DATE OF SERVICE: 08/21/2016 CHIEF COMPLAINT: Status post CABG. HISTORY OF PRESENT ILLNESS: This gentleman is doing a little bit better. He is being assessed by Cardiology and he may be going home. Review of systems is otherwise unremarkable. PHYSICAL EXAM: Chest demonstrates diminished breath sounds in the bases. The cardiac exam is normal. The abdomen is soft, nontender. IMPRESSION: 1. Status post coronary artery bypass grafting. 2. Chronic obstructive pulmonary disease. PLAN: Possibly home today and this will be determined by Cardiac Surgery and Cardiology and arranged by the nurse practitioner.
== END 2016-08-21 16:19 | DRG 234 ==
LOC: EC 14:46 → 3OBS 17:47 → OBSVTOIN 08-07 12:21 → 6SEL 08-07 18:15 → 6ICU 08-10 09:28 → 6SEL 08-14 22:31
PROVIDERS: ADMIT Surgery; ATTEND Surgery
PROC: B2111ZZ Fluoroscopy of Multiple Coronary Arteries using Low Osmolar Contrast (ICD-10-PCS; principal; 2016-08-08 12:20)
PROC: 4A023N7 Measurement of Cardiac Sampling and Pressure, Left Heart, Percutaneous Approach (ICD-10-PCS; principal; 2016-08-08 12:20)
PROC: B2151ZZ Fluoroscopy of Left Heart using Low Osmolar Contrast (ICD-10-PCS; principal; 2016-08-08 12:20)
PROC: 5A1221Z Performance of Cardiac Output, Continuous (ICD-10-PCS; 2016-08-10)
PROC: 02100A9 Bypass Coronary Artery, One Artery from Left Internal Mammary with Autologous Arterial Tissue, Open Approach (ICD-10-PCS; 2016-08-10)
PROC: B246ZZ4 Ultrasonography of Right and Left Heart, Transesophageal (ICD-10-PCS; 2016-08-10)
PROC: 021109W Bypass Coronary Artery, Two Arteries from Aorta with Autologous Venous Tissue, Open Approach (ICD-10-PCS; 2016-08-10)
PROC: 06BQ4ZZ Excision of Left Saphenous Vein, Percutaneous Endoscopic Approach (ICD-10-PCS; 2016-08-10)
DX: I21.4 Non-ST elevation (NSTEMI) myocardial infarction (principal); I47.2 Ventricular tachycardia; I42.9 Cardiomyopathy, unspecified; J44.1 Chronic obstructive pulmonary disease with (acute) exacerbation; I27.2 Other secondary pulmonary hypertension; J45.901 Unspecified asthma with (acute) exacerbation; J98.2 Interstitial emphysema; I50.22 Chronic systolic (congestive) heart failure; I11.0 Hypertensive heart disease with heart failure; J98.11 Atelectasis; E78.5 Hyperlipidemia, unspecified; E66.9 Obesity, unspecified; I25.110 Atherosclerotic heart disease of native coronary artery with unstable angina pectoris; G89.29 Other chronic pain; I34.0 Nonrheumatic mitral (valve) insufficiency; Z59.0 Homelessness; Z79.02 Long term (current) use of antithrombotics/antiplatelets; Z79.899 Other long term (current) drug therapy; Z86.14 Personal history of Methicillin resistant Staphylococcus aureus infection; Z72.0 Tobacco use
CPT/HCPCS: 36415; 36600; 36620; 71010; 71020; 71275; 80048; 80053; 80061; 80074; 81003; 82330; 82550; 82553; 82805; 83036; 83690; 83735; 83880; 84100; 84439; 84443; 84484; 85025; 85027; 85049; 85379; 85520; 85610; 85730; 86850; 86891; 86900; 86901; 86920; 87070; 87086; 87205; 87502; 93005; 93306; 93308; 93458; 93880; 93923; 93970; 94002; 94003; 94150; 94640; 94760; 96361; 96365; 96366; 96374; 96375; 96376; 99285

== ENCOUNTER 2016-11-02 21:32 | Emergency (ER) | payer OTHER ==
[2016-11-02] MEDS ORDERED: traMADol 50 MG TAB PO STA (23:01)
--- NOTE | 2016-11-02 23:11 | ED ---
General Adult HPI - General Chief complaint: Recheck/Abnormal Lab/Rx Stated complaint: Diff breathing Source: patient, RN notes reviewed, old records reviewed Mode of arrival: ambulatory Limitations: no limitations - History of Present Illness Initial comments: Chief complaint history of present illness this is a 56-year-old male who is here requesting refill of his tramadol. Patient reports over the last several months he has been taken off OxyContin and Mcclave. He has had open-heart surgery with triple vessel replacement several months ago. He still waiting to get into a new physician who can continue wearing his prescriptions. He is wearing one more month to see a neurologist. - Related Data Home Medications Medication Instructions Recorded Confirmed Budesonide/Formoterol Fumarate 2 puff INHALATION RT-BID 08/06/16 08/30/16 [Symbicort 160-4.5 Mcg Inhaler] Previous Rx's Medication Instructions Recorded Aspirin 325 mg PO DAILY tab 08/21/16 Budesonide [Pulmicort] 0.5 mg INHALATION RT-BID nebu 08/21/16 Metoprolol Tartrate [Lopressor] 50 mg PO BID tab 08/21/16 Nicotine 21Mg/24Hr Patch [Habitrol] 1 patch TRANSDERM DAILY patch 08/21/16 oxyCODONE HCL 15 mg PO Q4H PRN 7 Days 08/21/16 Albuterol Sulfate [Proventil Hfa] 1 - 2 puff INHALATION RT-Q6H PRN 08/31/16 #1 hfa.aer.ad Atorvastatin [Lipitor] 40 mg PO DAILY #30 tab 08/31/16 Clopidogrel [Plavix] 75 mg PO DAILY #30 tab 08/31/16 Furosemide [Lasix] 20 mg PO BID@0900,1600 #60 tab 08/31/16 Losartan [Cozaar] 25 mg PO 1200 #30 tab 08/31/16 Metoprolol Tartrate [Lopressor] 50 mg PO BID #60 tab 08/31/16 Nicotine 21Mg/24Hr Patch [Habitrol] 1 patch TRANSDERM DAILY #30 patch 08/31/16 traMADol HCl [Ultram] 50 mg PO Q6H PRN #40 tab 11/02/16 Allergies Allergy/AdvReac Type Severity Reaction Status Date / Time No Known Allergies Allergy Verified 11/02/16 21:42 Review of Systems ROS Statement: Those systems with pertinent positive or pertinent negative responses have been documented in the HPI. review of systems no complaint of headache or visual acuity changes. The patient has chronic back pain and right hand carpal tunnel pain. He's had open- heart surgery. Denies nausea vomiting or diarrhea. Past medical problems significant for heart disease COPD hyperlipidemia hypertension, 2 MIs, surgeries started with stents to the heart and then CABG. Family history father had pancreatic cancer. Patient denies ALLERGIES at to stop smoking denies alcohol use ROS Other: All systems not noted in ROS Statement are negative. Past Medical History Past Medical History: Coronary Artery Disease (CAD), COPD, Hyperlipidemia, Hypertension, Myocardial Infarction ([place]) Additional Past Medical History / Comment(s): Emphesema Last Myocardial Infarction Date:: 2012 History of Any Multi-Drug Resistant Organisms: MRSA Date of last positivie culture/infection: 02/08/09 MDRO Source:: Leg Past Surgical History: Heart Catheterization With Stent Past Anesthesia/Blood Transfusion Reactions: No Reported Reaction Date of Last Stent Placement:: 2012 Past Psychological History: No Psychological Hx Reported Smoking Status: Former smoker Past Alcohol Use History: None Reported Past Drug Use History: None Reported - Past Family History Father Family Medical History: Cancer Additional Family Medical History / Comment(s): Pancreatic CA Mother Family Medical History: Cancer Additional Family Medical History / Comment(s): Leukemia General Exam - General Exam Comments Initial Comments: General: The patient is awake and alert, . Requesting refill of his tramadol. He does not have a current family physician who can do that for him. Vital signs shows temperature 98.2 pulse 91 respiratory rate 20 pulse ox 96% room air blood pressure 160/81 Eye: Pupils are equal, round and reactive to light, extra-ocular movements are intact ; there is normal conjunctiva bilaterally. No signs of icterus. Ears, nose, mouth and throat: There are moist mucous membranes . Neck: The neck is supple, there is no tenderness . Cardiovascular: There is a regular rate and rhythm. No murmur, rub or gallop is appreciated. Respiratory: Lungs are clear to auscultation, respirations are non-labored, breath sounds are equal. No wheezes, stridor, rales, or rhonchi. Back: There is no tenderness to palpation in the midline. There is no obvious deformity.no rash, chronic back pain. Musculoskeletal: Normal ROM, no tenderness, There is no pedal edema. patient has right hand pain from carpal tunnel. Neurological: no neuro deficits Skin: Skin is warm and dry and no rashes or lesions are noted. Limitations: no limitations Course Vital Signs 11/02/16 21:37 Temperature 98.2 F Pulse Rate 91 Respiratory 20 Rate Blood Pressure 160/81 O2 Sat by Pulse 96 Oximetry Medical Decision Making - Medical Decision Making the patient relates a plausible story and presents with the need for refill of his tramadol. Old chart reviewed. Patient states once his insurance settled and he gets carpal tunnel surgery on his hand and further evaluation and resolution of his chronic back pain and he hopes not to need to take any pain medications. Disposition Clinical Impression: Encounter for medication refill, Lumbar back pain, S/P CABG (coronary artery bypass graft) Disposition: HOME SELF-CARE Condition: Stable Instructions: Chronic Pain (ED) Additional Instructions: Take medications as directed follow-up with your family doctor Prescriptions: traMADol HCl [Ultram] 50 mg PO Q6H PRN #40 tab PRN Reason: Pain Referrals: None,Stated [Primary Care Provider] - 1-2 days Time of Disposition: 23:11
[2016-11-02 23:22] VITALS: BP 162/97; PULSE 84; RESP 18; TEMP 97.8
== END 2016-11-02 23:20 | disposition home or self-care (01) ==
LOC: EC 21:32
DX: M54.5 Low back pain (principal); Z76.0 Encounter for issue of repeat prescription; G56.01 Carpal tunnel syndrome, right upper limb; J44.9 Chronic obstructive pulmonary disease, unspecified; Z87.891 Personal history of nicotine dependence; Z79.51 Long term (current) use of inhaled steroids; Z95.1 Presence of aortocoronary bypass graft
CPT/HCPCS: 93005; 99285

== ENCOUNTER 2017-09-02 10:10 | Emergency (ER) | payer OTHER ==
[2017-09-02] MEDS ORDERED: CLINDAMYCIN 150 MG CAP PO STA (10:33)
[2017-09-02] MEDS ORDERED: HYDROcodone/APAP 5-325MG 1 EACH TAB PO STA (10:33)
--- NOTE | 2017-09-02 10:37 | ED ---
ENT HPI - General Chief complaint: Dental/Oral Stated complaint: dental pain Time Seen by Provider: 09/02/17 10:28 Source: patient, RN notes reviewed Mode of arrival: ambulatory Limitations: no limitations - History of Present Illness Initial comments: This a 56-year-old male present emergency department to complaint of dental abscess. Patient states has been there for a little while but states it ruptured. Patient states that there is a large amount of pus. He states it's over his left anterior surface of his upper gum. Patient has poor dentition. Patient admits of seen a dentist. Patient denies any known fever, chills, headache, dizziness, neck pain or, sore throat. - Related Data Home Medications Medication Instructions Recorded Confirmed Budesonide/Formoterol Fumarate 2 puff INHALATION RT-BID 08/06/16 08/30/16 [Symbicort 160-4.5 Mcg Inhaler] Previous Rx's Medication Instructions Recorded Aspirin 325 mg PO DAILY tab 08/21/16 Budesonide [Pulmicort] 0.5 mg INHALATION RT-BID nebu 08/21/16 Metoprolol Tartrate [Lopressor] 50 mg PO BID tab 08/21/16 Nicotine 21Mg/24Hr Patch [Habitrol] 1 patch TRANSDERM DAILY patch 08/21/16 oxyCODONE HCL 15 mg PO Q4H PRN 7 Days tablet 08/21/16 Albuterol Sulfate [Proventil Hfa] 1 - 2 puff INHALATION RT-Q6H PRN 08/31/16 #1 hfa.aer.ad Atorvastatin [Lipitor] 40 mg PO DAILY #30 tab 08/31/16 Clopidogrel [Plavix] 75 mg PO DAILY #30 tab 08/31/16 Furosemide [Lasix] 20 mg PO BID@0900,1600 #60 tab 08/31/16 Losartan [Cozaar] 25 mg PO 1200 #30 tab 08/31/16 Metoprolol Tartrate [Lopressor] 50 mg PO BID #60 tab 08/31/16 Nicotine 21Mg/24Hr Patch [Habitrol] 1 patch TRANSDERM DAILY #30 patch 08/31/16 traMADol HCl [Ultram] 50 mg PO Q6H PRN #40 tab 11/02/16 Clindamycin HCl 300 mg PO Q6HR #40 cap 09/02/17 Hydrocodone/Acetaminophen [[place] 1 tab PO Q6HR PRN #20 tab 09/02/17 5-325] Allergies Allergy/AdvReac Type Severity Reaction Status Date / Time No Known Allergies Allergy Verified 11/02/16 21:42 Review of Systems ROS Statement: Those systems with pertinent positive or pertinent negative responses have been documented in the HPI. ROS Other: All systems not noted in ROS Statement are negative. Past Medical History Past Medical History: Coronary Artery Disease (CAD), COPD, Hyperlipidemia, Hypertension, Myocardial Infarction ([place]) Additional Past Medical History / Comment(s): Emphesema Last Myocardial Infarction Date:: 2012 History of Any Multi-Drug Resistant Organisms: MRSA Date of last positivie culture/infection: 02/08/09 MDRO Source:: Leg Past Surgical History: Coronary Bypass/CABG, Heart Catheterization With Stent Past Anesthesia/Blood Transfusion Reactions: No Reported Reaction Date of Last Stent Placement:: 2012 Past Psychological History: No Psychological Hx Reported Smoking Status: Current some day smoker Past Alcohol Use History: None Reported Past Drug Use History: None Reported - Past Family History Father Family Medical History: Cancer Additional Family Medical History / Comment(s): Pancreatic [place] Mother Family Medical History: Cancer Additional Family Medical History / Comment(s): Leukemia General Exam Limitations: no limitations General appearance: alert, in no apparent distress Head exam: Present: atraumatic, normocephalic, normal inspection Eye exam: Present: normal appearance, PERRL, EOMI. Absent: scleral icterus, conjunctival injection, periorbital swelling ENT exam: Present: mucous membranes moist. Absent: normal oropharynx ( Edentulous, there is an open abscess area in the left sided anterior surface of the upper gum along #10 and 11) Neck exam: Present: normal inspection. Absent: tenderness, meningismus, lymphadenopathy Respiratory exam: Present: normal lung sounds bilaterally. Absent: respiratory distress, wheezes, rales, rhonchi, stridor Cardiovascular Exam: Present: regular rate, normal rhythm, normal heart sounds. Absent: systolic murmur, diastolic murmur, rubs, gallop, clicks Course Vital Signs 09/02/17 10:13 Temperature 98.0 F Pulse Rate 92 Respiratory 18 Rate Blood Pressure 152/86 O2 Sat by Pulse 93 L Oximetry Medical Decision Making - Medical Decision Making 56-year-old male present emergency from for dental infection. Patient does have a dental abscess it is open at this time. I did explain to him that he needs to follow for further treatment and to make sure this resolves. We did discuss that if it is not resolving may need biopsy to rule out any cancers type concerns. Return parameters discussed. Disposition Clinical Impression: Gingival abscess Disposition: HOME SELF-CARE Condition: Stable Instructions: Dental Abscess (ED) Additional Instructions: Please return to the Emergency Department if symptoms worsen or any other concerns. Prescriptions: Clindamycin HCl 300 mg PO Q6HR #40 cap Hydrocodone/Acetaminophen [[place] 5-325] 1 tab PO Q6HR PRN #20 tab PRN Reason: Pain Referrals: Jame Bautista MD [Primary Care Provider] - 1-2 days Enrique Douglas DDS [STAFF PHYSICIAN] - 1-2 days Time of Disposition: 10:36
[2017-09-02 11:19] VITALS: BP 148/79; PULSE 78; RESP 16; TEMP 97.8
== END 2017-09-02 11:18 | disposition home or self-care (01) ==
LOC: EC 10:10
DX: K05.219 Aggressive periodontitis, localized, unspecified severity (principal); J44.9 Chronic obstructive pulmonary disease, unspecified; I25.2 Old myocardial infarction; F17.200 Nicotine dependence, unspecified, uncomplicated; Z86.14 Personal history of Methicillin resistant Staphylococcus aureus infection; Z79.51 Long term (current) use of inhaled steroids
CPT/HCPCS: 99282

== ENCOUNTER 2018-01-05 02:01 | Inpatient (IN) | payer OTHER ==
[2018-01-05] MEDS ORDERED: IPRATROPIUM-ALBUTEROL 3 ML NEB INHALATION STA (03:19)
--- NOTE | 2018-01-05 03:23 | ED ---
SOB HPI - General Chief Complaint: Shortness of Breath Stated Complaint: MARYA Time Seen by Provider: 01/05/18 02:26 Source: patient Mode of arrival: ambulatory Limitations: no limitations - History of Present Illness Initial Comments: This patient is a 57-year-old man with history of COPD who presents with about 2 weeks of worsening shortness of breath. Patient states that his breathing seemed to get a bit worse tonight so he decided to be evaluated. He does note also that his home nebulizer seemed to stop working with his last treatment in the afternoon, and he believes she did not receive any medication this afternoon. Patient is denying fever or chills. He denies cough. Has not had chest pain. He does note that he has seemed to have an increase in leg swelling over the period of time that his breathing has worsened. He has not noted any change in urination or bowel movements. MD Complaint: shortness of breath Onset/Timin -: week(s) Severity: moderate Consistency: constant Improves With: nothing Worsens With: nothing Known History Of: COPD Associated Symptoms: other (Leg swelling) Treatments Prior to Arrival: none - Related Data Home Oxygen Therapy: No Home Medications Medication Instructions Recorded Confirmed Budesonide/Formoterol Fumarate 2 puff INHALATION RT-BID 08/06/16 01/05/18 [Symbicort 160-4.5 Mcg Inhaler] Losartan [Cozaar] 25 mg PO DAILY@1200 09/02/17 01/05/18 Oxymetazoline 0.05% Nasl [place] 2 spray EA NOSTRIL BID PRN 09/02/17 01/05/18 [Afrin 0.05% Nasal [place]] Previous Rx's Medication Instructions Recorded Aspirin 325 mg PO DAILY tab 08/21/16 Albuterol Sulfate [Proventil Hfa] 1 - 2 puff INHALATION RT-Q6H PRN 08/31/16 #1 hfa.aer.ad Atorvastatin [Lipitor] 40 mg PO DAILY #30 tab 08/31/16 Clopidogrel [Plavix] 75 mg PO DAILY #30 tab 08/31/16 Metoprolol Tartrate [Lopressor] 50 mg PO BID #60 tab 08/31/16 Hydrocodone/Acetaminophen [[place] 1 tab PO Q6HR PRN #20 tab 09/02/17 5-325] Allergies Allergy/AdvReac Type Severity Reaction Status Date / Time No Known Allergies Allergy Verified 01/05/18 02:20 Review of Systems ROS Statement: Those systems with pertinent positive or pertinent negative responses have been documented in the HPI. ROS Other: All systems not noted in ROS Statement are negative. Constitutional: Denies: fever, chills, weakness Respiratory: Reports: dyspnea. Denies: cough, wheezes, hemoptysis Cardiovascular: Reports: dyspnea on exertion, edema. Denies: chest pain, palpitations, orthopnea, syncope Gastrointestinal: Denies: abdominal pain, vomiting, diarrhea, melena, hematochezia Genitourinary: Denies: dysuria Musculoskeletal: Denies: back pain Skin: Denies: rash Neurological: Denies: headache, weakness, numbness Past Medical History Past Medical History: Coronary Artery Disease (CAD), COPD, Hyperlipidemia, Hypertension, Myocardial Infarction ([place]) Additional Past Medical History / Comment(s): Emphesema Last Myocardial Infarction Date:: 2012 History of Any Multi-Drug Resistant Organisms: MRSA Date of last positivie culture/infection: 02/08/09 MDRO Source:: Leg Past Surgical History: Coronary Bypass/CABG, Heart Catheterization With Stent Past Anesthesia/Blood Transfusion Reactions: No Reported Reaction Date of Last Stent Placement:: 2012 Past Psychological History: No Psychological Hx Reported Smoking Status: Current some day smoker Past Alcohol Use History: None Reported Past Drug Use History: None Reported - Past Family History Father Family Medical History: Cancer Additional Family Medical History / Comment(s): Pancreatic [place] Mother Family Medical History: Cancer Additional Family Medical History / Comment(s): Leukemia General Exam Limitations: no limitations General appearance: alert, in no apparent distress Head exam: Present: atraumatic, normocephalic Eye exam: Present: normal appearance Neck exam: Present: normal inspection Respiratory exam: Present: wheezes, rales (Bilateral bases). Absent: respiratory distress, rhonchi, stridor Cardiovascular Exam: Present: regular rate, normal rhythm, normal heart sounds. Absent: systolic murmur, diastolic murmur, rubs, gallop GI/Abdominal exam: Present: soft. Absent: distended, tenderness, guarding, rebound, rigid Extremities exam: Present: normal inspection, normal capillary refill. Absent: pedal edema, calf tenderness Back exam: Present: normal inspection. Absent: CVA tenderness (R), CVA tenderness (L) Neurological exam: Present: alert Skin exam: Present: warm, dry, intact, normal color. Absent: rash Course Vital Signs 01/05/18 01/05/18 01/05/18 02:17 03:36 03:51 Temperature 94 F L Pulse Rate 95 90 96 Respiratory 24 Rate Blood Pressure 138/96 O2 Sat by Pulse 92 L Oximetry Medical Decision Making - Lab Data Result diagrams: 01/05/18 03:42 01/05/18 03:42 Lab Results 01/05/18 01/05/18 01/05/18 Range/Units 03:42 03:42 03:42 WBC 7.2 (3.8-10.6) k/uL RBC 4.46 (4.30-5.90) m/uL Hgb 13.0 (13.0-17.5) gm/dL Hct 41.8 (39.0-53.0) % MCV 93.9 (80.0-100.0) fL MCH 29.2 (25.0-35.0) pg MCHC 31.1 (31.0-37.0) g/dL RDW 14.7 (11.5-15.5) % Plt Count 269 (150-450) k/uL Neutrophils % 61 % Lymphocytes % 28 % Monocytes % 4 % Eosinophils % 5 % Basophils % 1 % Neutrophils # 4.3 (1.3-7.7) k/uL Lymphocytes # 2.0 (1.0-4.8) k/uL Monocytes # 0.3 (0-1.0) k/uL Eosinophils # 0.3 (0-0.7) k/uL Basophils # 0.0 (0-0.2) k/uL PT (9.0-12.0) sec INR (<1.2) APTT (22.0-30.0) sec D-Dimer (<0.60) mg/L FEU Sodium 140 (137-145) mmol/L Potassium 4.9 (3.5-5.1) mmol/L Chloride 109 H (98-107) mmol/L Carbon Dioxide 25 (22-30) mmol/L Anion Gap 6 mmol/L BUN 20 (9-20) mg/dL Creatinine 0.80 (0.66-1.25) mg/dL Est GFR (CKD-EPI)AfAm >90 (>60 ml/min/1.73 sqM) Est GFR (CKD-EPI)NonAf >90 (>60 ml/min/1.73 sqM) Glucose 105 H (74-99) mg/dL Calcium 9.0 (8.4-10.2) mg/dL Magnesium 1.7 (1.6-2.3) mg/dL Total Bilirubin 0.4 (0.2-1.3) mg/dL AST 65 H (17-59) U/L ALT 94 H (21-72) U/L Alkaline Phosphatase 67 (38-126) U/L Total Creatine Kinase 300 H (55-170) U/L CK-MB (CK-2) 3.8 H* (0.0-2.4) ng/mL CK-MB (CK-2) Rel Index 1.3 Troponin I 0.067 H* (0.000-0.034) ng/mL NT-Pro-B Natriuret Pep pg/mL Total Protein 5.9 L (6.3-8.2) g/dL Albumin 3.7 (3.5-5.0) g/dL Urine Color Urine Appearance (Clear) Urine pH (5.0-8.0) Ur Specific [place] (1.001-1.035) Urine Protein (Negative) Urine Glucose (UA) (Negative) Urine Ketones (Negative) Urine Blood (Negative) Urine Nitrite (Negative) Urine Bilirubin (Negative) Urine Urobilinogen (<2.0) mg/dL Ur Leukocyte Esterase (Negative) Urine RBC (0-5) /hpf Urine WBC (0-5) /hpf Urine Mucus (None) /hpf Urine Sperm (None) /hpf 01/05/18 01/05/18 01/05/18 Range/Units 03:42 03:42 03:42 WBC (3.8-10.6) k/uL RBC (4.30-5.90) m/uL Hgb (13.0-17.5) gm/dL Hct (39.0-53.0) % MCV (80.0-100.0) fL MCH (25.0-35.0) pg MCHC (31.0-37.0) g/dL RDW (11.5-15.5) % Plt Count (150-450) k/uL Neutrophils % % Lymphocytes % % Monocytes % % Eosinophils % % Basophils % % Neutrophils # (1.3-7.7) k/uL Lymphocytes # (1.0-4.8) k/uL Monocytes # (0-1.0) k/uL Eosinophils # (0-0.7) k/uL Basophils # (0-0.2) k/uL PT 11.0 (9.0-12.0) sec INR 1.1 (<1.2) APTT 23.6 (22.0-30.0) sec D-Dimer 0.78 H (<0.60) mg/L FEU Sodium (137-145) mmol/L Potassium (3.5-5.1) mmol/L Chloride (98-107) mmol/L Carbon Dioxide (22-30) mmol/L Anion Gap mmol/L BUN (9-20) mg/dL Creatinine (0.66-1.25) mg/dL Est GFR (CKD-EPI)AfAm (>60 ml/min/1.73 sqM) Est GFR (CKD-EPI)NonAf (>60 ml/min/1.73 sqM) Glucose (74-99) mg/dL Calcium (8.4-10.2) mg/dL Magnesium (1.6-2.3) mg/dL Total Bilirubin (0.2-1.3) mg/dL AST (17-59) U/L ALT (21-72) U/L Alkaline Phosphatase (38-126) U/L Total Creatine Kinase (55-170) U/L CK-MB (CK-2) (0.0-2.4) ng/mL CK-MB (CK-2) Rel Index Troponin I (0.000-0.034) ng/mL NT-Pro-B Natriuret Pep 6880 pg/mL Total Protein (6.3-8.2) g/dL Albumin (3.5-5.0) g/dL Urine Color Yellow Urine Appearance Clear (Clear) Urine pH 5.5 (5.0-8.0) Ur Specific [place] 1.022 (1.001-1.035) Urine Protein 1+ H (Negative) Urine Glucose (UA) Negative (Negative) Urine Ketones Negative (Negative) Urine Blood Negative (Negative) Urine Nitrite Negative (Negative) Urine Bilirubin Negative (Negative) Urine Urobilinogen <2.0 (<2.0) mg/dL Ur Leukocyte Esterase Negative (Negative) Urine RBC 2 (0-5) /hpf Urine WBC 1 (0-5) /hpf Urine Mucus Rare H (None) /hpf Urine Sperm Rare (None) /hpf - EKG Data -: EKG Interpreted by Hi EKG shows normal: sinus rhythm, axis (Normal), intervals (NH interval 162 ms, normal. QTc 521 ms, normal area QRS duration 128 ms, consistent with intraventricular block.), QRS complexes (Nonspecific intraventricular block.) Rate: normal (Rate 85 bpm) Interpretation: nonspecific ST-T wave changes, other (There are lateral T inversions that are present on the comparison EKG from November 02, 2016.) Disposition Clinical Impression: Congestive heart failure, COPD (chronic obstructive pulmonary disease), Elevated troponin Disposition: ADMITTED IP TO THIS HOSP Condition: Fair Referrals: Jame Bautista MD [Primary Care Provider] - 1-2 days
--- NOTE | 2018-01-05 03:42 | XR ---
EXAMINATION TYPE: XR chest 1V portable DATE OF EXAM: 01/05/2018 COMPARISON: 08/30/2016 HISTORY: Bypass surgery. Short of breath TECHNIQUE: Single frontal view of the chest is obtained. FINDINGS: Heart is enlarged. There is pulmonary vascular congestion. There are sternal wires. There are chest leads. IMPRESSION: Congestive heart failure is new compared to old exam.
[2018-01-05 03:50] LABS: Basophils % (A) 1 %; Eosinophils # (A) 0.3 k/uL (0-0.7); Eosinophils % (A) 5 %; HCT 41.8 % (39.0-53.0); Lymphocytes % (A) 28 %; MCH 29.2 pg (25.0-35.0); MCHC 31.1 g/dL (31.0-37.0); MCV 93.9 fL (80.0-100.0); Mean Platelet Volume 6.9; Monocytes # (A) 0.3 k/uL (0-1.0); Monocytes % (A) 4 %; Neutrophils # (A) 4.3 k/uL (1.3-7.7); Neutrophils % (A) 61 %; Platelet Count 269 k/uL (150-450); RBC 4.46 m/uL (4.30-5.90); RDW 14.7 % (11.5-15.5); WBC 7.2 k/uL (3.8-10.6)
[2018-01-05 03:52] LABS: Appearance,Urine Clear (Clear); Bilirubin,Urine Negative (Negative); Blood,Urine Negative (Negative); Color,Urine Yellow; Glucose,Urine (UA) Negative (Negative); Ketones,Urine Negative (Negative); Leukocyte Esterase,Urine Negative (Negative); Mucus,Urine Rare /hpf; Nitrite,Urine Negative (Negative); PH, Urine 5.5 (5.0-8.0); Protein,Urine 1+ (Negative); RBC,Urine 2 /hpf (0-5); Specific Gravity,Urine 1.022 (1.001-1.035); Sperm,Urine Rare /hpf; Urobilinogen,Urine <2.0 mg/dL (<2.0); WBC,Urine 1 /hpf (0-5)
[2018-01-05 03:59] LABS: ALT 94 U/L (21-72); AST 65 U/L (17-59); Albumin 3.7 g/dL (3.5-5.0); Alkaline Phosphatase 67 U/L (38-126); Anion Gap 6 mmol/L; Blood Urea Nitrogen 20 mg/dL (9-20); Carbon Dioxide 25 mmol/L (22-30); Chloride 109 mmol/L (98-107); Glucose 105 mg/dL (74-99); Magnesium 1.7 mg/dL (1.6-2.3); Potassium 4.9 mmol/L (3.5-5.1); Sodium 140 mmol/L (137-145); Total Bilirubin 0.4 mg/dL (0.2-1.3); Total Protein 5.9 g/dL (6.3-8.2)
[2018-01-05 04:03] LABS: INR 1.1 (<1.2); Partial Thromboplastin Time 23.6 sec (22.0-30.0)
[2018-01-05 04:19] LABS: D-Dimer 0.78 mg/L FEU (<0.60)
[2018-01-05 04:33] LABS: Creatine Kinase MB 3.8 ng/mL (0.0-2.4); Troponin I 0.067 ng/mL (0.000-0.034)
[2018-01-05] MEDS ORDERED: ALBUTEROL NEBULIZED 2.5 MG/3 ML INHALATION PRN ×2 (04:46→20:25)
--- NOTE | 2018-01-05 05:14 | CT ---
EXAMINATION TYPE: CT chest angio for PE DATE OF EXAM: 01/05/2018 COMPARISON: 08/30/2016 HISTORY: Prior on synapse. MARYA, elevated d-dimer, R/O PE, hx of CABG and stents CT DLP: 505.30 mGycm Automated exposure control for dose reduction was used. CONTRAST: CT Chest for pulmonary embolism performed with with IV Contrast, patient injected with 80 mL of Isovu e 370. FINDINGS: There are 3-D post processed images. There is diffuse pulmonary emphysema. There is coarse interstiti al reticular density in the lower lobes and more on the right side. This is consistent with fibrosis and subsegmental atelectasis. Heart is moderately enlarged. There is no pericardial effusion. I see n o filling defects in the pulmonary arteries. There is no evidence of thoracic aortic aneurysm or diss ection. There is no pleural effusion. There are some right bronchial lymph nodes that measure up to 2 cm. I see no bony destructive process. IMPRESSION: No evidence of pulmonary embolism. Pulmonary emphysema and pulmonary fibrosis. Moderate cardiomegaly. There is increased right bronchial adenopathy compared to old exam. This is likely related to inflam matory process. There is significant clearing of the pleural fluid and infiltrate compared to old exa m.
[2018-01-05 06:00] VITALS: BMI 30.6
[2018-01-05] MEDS: FUROSEMIDE 10 MG/ML 4 ML VIAL IV SCH ×2 (06:05→18:21)
[2018-01-05] MEDS: CLOPIDOGREL 75 MG TAB PO SCH (07:59)
[2018-01-05] MEDS: METOPROLOL TARTRATE 50 MG TAB PO SCH ×2 (07:59→21:20)
[2018-01-05] MEDS: ATORVASTATIN 40 MG TAB PO SCH (07:59)
[2018-01-05] MEDS: SYMBICORT 160-4.5 MCG INHALER INHALATION SCH ×2 (08:41→19:56)
[2018-01-05] MEDS ORDERED: ASPIRIN 325 MG TAB PO SCH (09:00)
[2018-01-05 10:14] LABS: Creatine Kinase MB 3.8 ng/mL (0.0-2.4)
[2018-01-05 10:16] LABS: Troponin I 0.054 ng/mL (0.000-0.034)
--- NOTE | 2018-01-05 10:37 | P.CRDCN ---
History of Present Illness Consult date: 01/05/18 Requesting physician: Violeta Varma Consult reason: congestive heart failure Chief complaint: Shortness of breath History of present illness: This is a pleasant 57-year-old gentleman who follows regularly with Dr. Ch in the office. He has known history of coronary artery disease with prior stent placement of the circumflex in 2013, most recently in August of this year the patient underwent coronary artery bypass grafting surgery where he underwent a JACKSON to the LAD, reverse saphenous vein graft from the aorta to the diagonal artery, reverse saphenous vein graft from the aorta to the posterior descending artery, history also of hypertension, hyperlipidemia, emphysema, nicotine dependence. He presents to the hospital on this occasion with symptoms of progressively worsening shortness of breath over approximately 2 week duration. Patient also states he's been noticing edema in his extremities and he's been having to sleep in his lazy boy chair because he is unable to lie flat. He denies any recent angina. Chest x-ray shows congestive heart failure which is new as compared with prior exam. CTA of the chest does not reveal any evidence of a pulmonary embolism. Pulmonary emphysema and pulmonary fibrosis. Moderate cardiomegaly. Increased right bronchial adenopathy compared with prior exam which is likely related to inflammatory process. EKG shows a normal sinus rhythm with nonspecific ST-T wave changes in the lateral leads. Blood pressure 140/90 with a heart rate in the 80s, afebrile. White blood cell count 7.2, hemoglobin 13, platelet count 269. D-dimer 0.7. Sodium 140, potassium 4.9 , BUN 20, creatinine 0.8. AST 65, ALT 94. Troponin 0.067, 0.054. BNP level 6880. Patient was initiated on IV Lasix in the emergency room, he has been diuresing well through the night last night. At the time of my examination this morning, patient states his breathing is improving however he is still quite short of breath. Past Medical History Past Medical History: Coronary Artery Disease (CAD), COPD, Hyperlipidemia, Hypertension, Myocardial Infarction ([place]) Additional Past Medical History / Comment(s): Emphesema Last Myocardial Infarction Date:: 2012 History of Any Multi-Drug Resistant Organisms: MRSA Date of last positivie culture/infection: 02/08/09 MDRO Source:: Leg Past Surgical History: Coronary Bypass/CABG, Heart Catheterization With Stent Additional Past Surgical History / Comment(s): CABG 2017 3 vessel Past Anesthesia/Blood Transfusion Reactions: No Reported Reaction Date of Last Stent Placement:: 2012 Past Psychological History: No Psychological Hx Reported Smoking Status: Former smoker Past Alcohol Use History: None Reported Past Drug Use History: None Reported - Past Family History Father Family Medical History: Cancer Additional Family Medical History / Comment(s): Pancreatic CA Mother Family Medical History: Cancer Additional Family Medical History / Comment(s): Leukemia Medications and Allergies Home Medications Medication Instructions Recorded Confirmed Type Budesonide/Formoterol Fumarate 2 puff INHALATION RT-BID 08/06/16 01/05/18 History [Symbicort 160-4.5 Mcg Inhaler] Aspirin 325 mg PO DAILY tab 08/21/16 01/05/18 Rx Albuterol Sulfate [Proventil Hfa] 1 - 2 puff INHALATION RT-Q6H PRN 08/31/1609/19 Rx #1 hfa.aer.ad Atorvastatin [Lipitor] 40 mg PO DAILY #30 tab 08/31/16 01/05/18 Rx Clopidogrel [Plavix] 75 mg PO DAILY #30 tab 08/31/16 01/05/18 Rx Metoprolol Tartrate [Lopressor] 50 mg PO BID #60 tab 08/31/16 01/05/18 Rx Hydrocodone/Acetaminophen [[place] 1 tab PO Q6HR PRN #20 tab 09/02/17 01/05/18 Rx 5-325] Losartan [Cozaar] 25 mg PO DAILY@1200 09/02/17 01/05/18 History Oxymetazoline 0.05% Nasl [place] 2 spray EA NOSTRIL BID PRN 09/02/17 01/05/18 History [Afrin 0.05% Nasal [place]] Allergies Allergy/AdvReac Type Severity Reaction Status Date / Time No Known Allergies Allergy Verified 01/05/18 12:06 Physical Exam Vitals: Vital Signs Temp Pulse Pulse Resp BP BP Pulse Ox 01/05/18 08:42 95 01/05/18 08:00 97.8 F 93 20 138/76 95 01/05/18 06:03 97.5 F L 86 18 141/95 95 01/05/18 05:40 97.7 F 72 18 137/68 96 01/05/18 03:51 96 01/05/18 03:36 90 01/05/18 02:17 94 F L 95 24 138/96 92 L Intake and Output 01/04/18 01/05/18 01/05/18 22:59 06:59 14:59 Output Total 1200 Balance -1200 Output: Urine 1200 Other: Voiding Method Urinal Weight 91.3 kg PHYSICAL EXAMINATION: GENERAL: 57-year-old gentleman in no acute distress at the time of my examination HEENT: Head is atraumatic, normocephalic. Pupils equal, round. Sclera anicteric. Conjunctiva are clear. Mucous membranes of the mouth are moist. Neck is supple. There is elevated jugular venous pressure to the angle of the jaw. No carotid bruit is heard. HEART EXAMINATION: Heart S1, S2 normal. Systolic murmur suggestive of mitral insuff CHEST EXAMINATION: Lungs reveal rales to bilateral bases, scattered coarse wheezing, with diminished air entry to the bases. ABDOMEN: Mildly distended , nontender. Bowel sounds are heard. No organomegaly noted. EXTREMITIES: 2+ peripheral pulses with 1+ evidence of peripheral edema and no calf tenderness noted. NEUROLOGIC patient is awake, alert and orientedX3 . Results 01/05/18 03:42 01/05/18 03:42 Cardiac Enzymes 01/05/18 01/05/18 Range/Units 03:42 03:42 AST 65 H (17-59) U/L CK-MB (CK-2) 3.8 H* (0.0-2.4) ng/mL Troponin I 0.067 H* (0.000-0.034) ng/mL Coagulation 01/05/18 Range/Units 03:42 PT 11.0 (9.0-12.0) sec APTT 23.6 (22.0-30.0) sec CBC 01/05/18 Range/Units 03:42 WBC 7.2 (3.8-10.6) k/uL RBC 4.46 (4.30-5.90) m/uL Hgb 13.0 (13.0-17.5) gm/dL Hct 41.8 (39.0-53.0) % Plt Count 269 (150-450) k/uL Comprehensive Metabolic Panel 01/05/18 Range/Units 03:42 Sodium 140 (137-145) mmol/L Potassium 4.9 (3.5-5.1) mmol/L Chloride 109 H (98-107) mmol/L Carbon Dioxide 25 (22-30) mmol/L BUN 20 (9-20) mg/dL Creatinine 0.80 (0.66-1.25) mg/dL Glucose 105 H (74-99) mg/dL Calcium 9.0 (8.4-10.2) mg/dL AST 65 H (17-59) U/L ALT 94 H (21-72) U/L Alkaline Phosphatase 67 (38-126) U/L Total Protein 5.9 L (6.3-8.2) g/dL Albumin 3.7 (3.5-5.0) g/dL Current Medications Generic Name Dose Route Start Last Admin Trade Name Freq PRN Reason Stop Dose Admin Hydrocodone Bitart/Acetaminophen 1 each 01/05/18 04:46 [place] 5-325 PO Q6HR PRN Pain Albuterol Sulfate 2.5 mg 01/05/18 04:46 Ventolin Nebulized INHALATION RT-Q6H PRN Shortness Of Breath Aspirin 325 mg 01/05/18 09:00 01/05/18 07:59 Aspirin PO 325 mg DAILY JULIANE Administration Atorvastatin Calcium 40 mg 01/05/18 09:00 01/05/18 07:59 Lipitor PO 40 mg DAILY JULIANE Administration Budesonide/Formoterol Fumarate 2 puff 01/05/18 08:00 01/05/18 08:41 Symbicort 160-4.5 Mcg Inhaler INHALATION 2 puff RT-BID JULIANE Administration Clopidogrel Bisulfate 75 mg 01/05/18 09:00 01/05/18 07:59 Plavix PO 75 mg DAILY JULIANE Administration Furosemide 40 mg 01/05/18 06:00 01/05/18 06:05 Lasix IV 40 mg Q12H JULIANE Administration Losartan Potassium 25 mg 01/05/18 12:00 Cozaar PO DAILY@1200 JULIANE Metoprolol Tartrate 50 mg 01/05/18 09:00 01/05/18 07:59 Lopressor PO 50 mg BID JULIANE Administration Sodium Chloride 10 ml 01/05/18 09:00 01/05/18 08:00 Saline Flush IV 10 ml BID JULIANE Administration Intake and Output 01/04/18 01/05/18 01/05/18 22:59 06:59 14:59 Output Total 1200 Balance -1200 Output: Urine 1200 Other: Voiding Method Urinal Weight 91.3 kg 01/05/18 03:42 01/05/18 03:42 EKG Interpretations (text) EKG shows a normal sinus rhythm nonspecific ST-T wave changes noted in the lateral leads. No arrhythmias noted on the monitor. Assessment and Plan Plan: Assessment and plan #1 systolic congestive heart failure acute on chronic. Most recent echocardiogram with Doppler study was performed in August of this year which revealed an ejection fraction of 20-25%. #2 known history of coronary artery disease with prior stent placement of the RCA and circumflex in 2013 subsequently patient underwent coronary artery bypass grafting surgery in August of this she #3 hypertension #4 hyperlipidemia #5 nicotine dependence #6 COPD #7 mildly abnormal liver functions, likely secondary to congestion. #8 ischemic cardiomyopathy, it has been discussed with the patient in the office by Dr. 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 Plan We will repeat an echocardiogram with Doppler study. We will also continue current dose of IV Lasix. Continue metoprolol, losartan, decrease aspirin to 81 mg daily, continue Lipitor. Potassium level was 4.9, 10 you to monitor daily lytes BUN and creatinine, consider Aldactone if potassium level comes down. Hold Cozaar, in 2 days we will initiate Entresto. Monitor intake and output along with daily weights and daily lytes BUN and creatinine. Further recommendations to follow. DNP note has been reviewed, I agree with a documented findings and plan of care. Patient was seen and examined.
[2018-01-05] MEDS: HYDROcodone/APAP 5-325MG 1 EACH TAB PO PRN ×3 (10:54→23:41)
[2018-01-05] MEDS ORDERED: LOSARTAN 25 MG TAB PO SCH (12:00)
--- NOTE | 2018-01-05 13:21 | P.HPIM ---
History of Present Illness H&P Date: 01/05/18 Chief Complaint: SOB 57 years old gentleman patient of Dr. Ch and Dr. Paiz presents with past medical history of coronary artery disease with previous placement of stent in 2013 and coronary artery bypass in August this year with JACKSON to LAD, reverse saphenous vein graft from the aorta to the diagonal artery, reverse saphenous vein graft from aorta to the posterior descending artery, history of hypertension hyperlipidemia, COPD, former tobacco abuse presents with history of shortness of breath that was worsening for the past 2 weeks with swelling in the lower extremity for a month. According to patient he was unable to lay flat in his bed due to the shortness of breath. He also is complains of extreme tiredness checked for sleep apnea. He was prescribed CPAP which is one unable to tolerate due to sinus issues. Vitals were obtained in the ER with concern of hypoxia patient is continues to require 3-4 L of oxygen and saturating at 95-96%. There was a concern for COPD exacerbation and CHF exacerbation. Labs were obtained with suggested of a d-dimer of 0.78 followed by a CTA which suggested no pulmonary embolism but signs of emphysema and pulmonary fibrosis. BMP suggestive of increased AST and ALT stop troponin was elevated 0.067 down trended to 0.054 UA was without any sign of infection. BNP was elevated to 6880. Patient was initiated on Lasix 40 IV twice a day for diuresis. Patient is feeling better since yesterday as per the shortness of breath is concerned. He denies any chest pain or palpitations, cough, phlegm production, recent smoke inhalation. Review of Systems Constitutional: Denies chills, Denies fever, Denies lethargy, Denies malaise, Denies poor appetite, Denies weakness, Denies weight loss Eyes: denies decreased vision, denies diplopia, denies discharge, denies pain Ears: deny: decreased hearing Ears, nose, mouth and throat: Denies dental pain, Denies headache, Denies nasal discharge, Denies nose pain Cardiovascular: Denies chest pain, positive decreased exercise tolerance, positive edema, Denies high blood pressure, Denies irregular heart beat, Denies palpitations, Denies paroxysmal nocturnal dyspnea, Denies rapid heart beat, positive shortness of breath Respiratory: Denies congestion, Denies cough, Denies cough with sputum, positive dyspnea, Denies home oxygen, positive wheezing Gastrointestinal: Denies abdominal pain, Denies change in bowel habits, Denies coffee ground emesis, Denies early satiety, Denies excessive gas, Denies heartburn, Denies hematemesis, Denies hematochezia, Denies loss of appetite, Denies nausea, Denies vomiting Genitourinary: Denies dysuria, Denies flank pain, Denies kidney stones, Denies menorrhagia, Denies urgency, Denies urinary frequency Musculoskeletal: Denies gait dysfunction, Denies limitation of motion, Denies morning stiffness, Denies muscle cramps Integumentary: Denies rash, Denies wounds, Denies brittle nails, Denies change in hair/nails, Denies darkening of skin Neurological: Denies balance difficulties, Denies change in speech, Denies double vision, Denies gait dysfunction, Denies loss of vision, Denies motor disturbance, Denies numbness, Denies paralysis, Denies paresthesias, Denies seizures Psychiatric: Denies anxiety, Denies depression Endocrine: Denies excessive sweating, Denies excessive thirst, Denies high blood sugars, Denies palpitations Hematologic/Lymphatic: Denies easy bruising, Denies lymphadenopathy Past Medical History Past Medical History: Coronary Artery Disease (CAD), COPD, Hyperlipidemia, Hypertension, Myocardial Infarction ([place]) Additional Past Medical History / Comment(s): Emphesema Last Myocardial Infarction Date:: 2012 History of Any Multi-Drug Resistant Organisms: MRSA Date of last positivie culture/infection: 02/08/09 MDRO Source:: Leg Past Surgical History: Coronary Bypass/CABG, Heart Catheterization With Stent Additional Past Surgical History / Comment(s): CABG 2016 3 vessel Past Anesthesia/Blood Transfusion Reactions: No Reported Reaction Date of Last Stent Placement:: 2012 Past Psychological History: No Psychological Hx Reported Smoking Status: Former smoker Past Alcohol Use History: None Reported Past Drug Use History: None Reported - Past Family History Father Family Medical History: Cancer Additional Family Medical History / Comment(s): Pancreatic CA Mother Family Medical History: Cancer Additional Family Medical History / Comment(s): Leukemia Medications and Allergies Home Medications Medication Instructions Recorded Confirmed Type Budesonide/Formoterol Fumarate 2 puff INHALATION RT-BID 08/06/16 01/05/18 History [Symbicort 160-4.5 Mcg Inhaler] Aspirin 325 mg PO DAILY tab 08/21/16 01/05/18 Rx Albuterol Sulfate [Proventil Hfa] 1 - 2 puff INHALATION RT-Q6H PRN 08/31/1609/19 Rx #1 hfa.aer.ad Atorvastatin [Lipitor] 40 mg PO DAILY #30 tab 08/31/16 01/05/18 Rx Clopidogrel [Plavix] 75 mg PO DAILY #30 tab 08/31/16 01/05/18 Rx Metoprolol Tartrate [Lopressor] 50 mg PO BID #60 tab 08/31/16 01/05/18 Rx Hydrocodone/Acetaminophen [[place] 1 tab PO Q6HR PRN #20 tab 09/02/17 01/05/18 Rx 5-325] Losartan [Cozaar] 25 mg PO DAILY@1200 09/02/17 01/05/18 History Oxymetazoline 0.05% Nasl [place] 2 spray EA NOSTRIL BID PRN 09/02/17 01/05/18 History [Afrin 0.05% Nasal [place]] Allergies Allergy/AdvReac Type Severity Reaction Status Date / Time No Known Allergies Allergy Verified 01/05/18 12:06 Physical Exam Vitals: Vital Signs Temp Pulse Pulse Resp BP BP Pulse Ox 01/05/18 12:12 96 01/05/18 11:59 92 01/05/18 11:37 97.0 F L 82 20 118/85 96 01/05/18 08:42 95 01/05/18 08:00 97.8 F 93 20 138/76 95 01/05/18 06:03 97.5 F L 86 18 141/95 95 01/05/18 05:40 97.7 F 72 18 137/68 96 01/05/18 03:51 96 01/05/18 03:36 90 01/05/18 02:17 94 F L 95 24 138/96 92 L Intake and Output 01/04/18 01/05/18 01/05/18 22:59 06:59 14:59 Output Total 1425 Balance -1425 Output: Urine 1425 Other: Voiding Method Urinal Weight 91.3 kg - Constitutional General appearance: cooperative, no acute distress, obese - EENT Eyes: anicteric sclerae, PERRLA, normal appearance ENT: hearing grossly normal - Neck Neck: no lymphadenopathy, normal ROM, no other, no rigidity, no stridor, no thyromegaly - Respiratory Respiratory: bilateral: Decreased air entry bilaterally, crackles at the bases, wheezing bilaterally more in the posterior lungs. - Cardiovascular Rhythm: regular Heart sounds: normal: S1, S2 Abnormal Heart Sounds: no systolic murmur, no diastolic murmur, no rub, no S3 Gallop, no S4 Gallop, no click, 2+ pitting edema lower extremities. - Gastrointestinal General gastrointestinal: normal bowel sounds, soft - Integumentary Integumentary: no rash - Neurologic Neurologic: CNII-XII intact - Musculoskeletal Musculoskeletal: gait normal, strength equal bilaterally - Psychiatric Psychiatric: A&O x's 3, appropriate affect Results CBC & Chem 7: 01/05/18 03:42 01/05/18 03:42 Labs: Abnormal Lab Results - Last 24 Hours (Table) 01/05/18 01/05/18 01/05/18 Range/Units 03:42 03:42 03:42 D-Dimer 0.78 H (<0.60) mg/L FEU Chloride 109 H (98-107) mmol/L Glucose 105 H (74-99) mg/dL AST 65 H (17-59) U/L ALT 94 H (21-72) U/L Total Creatine Kinase 300 H (55-170) U/L CK-MB (CK-2) 3.8 H* (0.0-2.4) ng/mL Troponin I 0.067 H* (0.000-0.034) ng/mL Total Protein 5.9 L (6.3-8.2) g/dL Urine Protein (Negative) Urine Mucus (None) /hpf 01/05/18 01/05/18 Range/Units 03:42 09:27 D-Dimer (<0.60) mg/L FEU Chloride (98-107) mmol/L Glucose (74-99) mg/dL AST (17-59) U/L ALT (21-72) U/L Total Creatine Kinase (55-170) U/L CK-MB (CK-2) 3.8 H* (0.0-2.4) ng/mL Troponin I 0.054 H* (0.000-0.034) ng/mL Total Protein (6.3-8.2) g/dL Urine Protein 1+ H (Negative) Urine Mucus Rare H (None) /hpf Thrombosis Risk Factor Assmnt - DVT/VTE Prophylaxis DVT/VTE Prophylaxis: Pharmacologic Prophylaxis ordered - Choose All That Apply Any of the Below Risk Factors Present?: Yes Each Factor Represents 1 point: Age 41-60 years, Heart failure (<1month), Obesity (BMI >25), Swollen legs (current) Other Risk Factors: No Other congenital or acquired thrombophilia - If yes, enter type in comment: No Thrombosis Risk Factor Assessment Total Risk Factor Score: 4 Thrombosis Risk Factor Assessment Level: Moderate Risk Assessment and Plan Plan: #1 acute hypoxic respiratory failure secondary to acute systolic congestive heart failure acute on chronic with ejection fraction last reported to be 20-25% . Repeat echocardiogram gram pending. Continue patient on aspirin 81 mg, metoprolol, losartan continue Lipitor. Patient is a candidate for AICD placement and is in discussion with Dr. Ch in the clinic outpatient. #2 history of coronary artery disease with previous stenting in 2013 followed by coronary artery bypass in August 2017 stop continue aspirin 81, metoprolol, losartan and Lipitor #3 hypertension continue metoprolol, losartan #4 hyperlipidemia continue Lipitor #5 COPD. Wheezing on examination but no signs of acute COPD exacerbation. Likely secondary to fluid overload. 2. #6 acute transaminitis. Likely secondary to congestion. Repeat LFTs tomorrow. CODE STATUS full code #8 DVT prophylaxis with heparin every 12 #9 disposition patient may need 1-2 inpatient nights for further diuresis
[2018-01-05 14:25] LABS: Creatine Kinase MB 3.4 ng/mL (0.0-2.4); Troponin I 0.05 ng/mL (0.000-0.034)
--- NOTE | 2018-01-05 14:45 | ECHOF ---
Referral Reason:CHF MEASUREMENTS -------- HEIGHT: 172.7 cm WEIGHT: 88.5 kg BP: 136/77 IVSd: 1.6 cm (0.6 - 1.1) LVIDd: 6.1 cm (3.9 - 5.3) LVPWd: 1.6 cm (0.6 - 1.1) EDV(Teich): 190 ml IVSs: 2.0 cm LVIDs: 5.8 cm LVPWs: 2.1 cm %IVS Thck: 22 % ESV(Teich): 170 ml EF(Teich): 11 % %FS: 5 % SV(Teich): 20 ml LA Diam: 4.3 cm (2.7 - 3.8) RVIDd: 4.3 cm (< 3.3) IVC: 25.16 mm LALs A4C: 5.6 cm LAAs A4C: 22.8 cm LAESV A-L A4C: 79 ml LAESV MOD A4C: 77 ml LALs A2C: 6.8 cm LAAs A2C: 23.8 cm LAESV A-L A2C: 71 ml LAESV MOD A2C: 69 ml LAESV(A-L): 82 ml LAESV Index (A-L): 40.72 ml/m Ao Diam: 3.4 cm (2.0 - 3.7) AV Cusp: 2.1 cm (1.5 - 2.6) EPSS: 3.2 cm MV E Parth: 1.23 m/s MV DecT: 127 ms MV Dec [place]: 9.7 m/s MV A Parth: 0.92 m/s MV E/A Ratio: 1.34 MV PHT: 37 ms AV Vmax: 1.11 m/s AV maxP.97 mmHg TR Vmax: 2.77 m/s TR maxP.66 mmHg RAP: 15.00 mmHg RVSP: 45.66 mmHg MV EF SLOPE: 125.62 mm/s (70 - 150) MV EXCURSION: 21.02 mm (> 18.000) FINDINGS -------- The left ventricle is mildly dilated. There is moderate concentric left ventricular hypertrophy. Overall left ventricular systolic function is severely impaired with, an EF between 20 - 25 %. The right ventricle is severely enlarged. LA is severely dilated >40 ml/m2 The right atrium is normal in size. There is mild aortic valve sclerosis. The mitral valve leaflets are mildly thickened. Moderate mitral regurgitation is present. Mild tricuspid regurgitation present. There is mild to moderate pulmonary hypertension. The right ventricular systolic pressure, as measured by Doppler, is 45.66mmHg. Trace/mild (physiologic) pulmonic regurgitation. The aortic root size is normal. The inferior vena cava is dilated with no significant inspiratory collapse which is consistent estima tez right atrial pressure of >15 mmHg. There is no pericardial effusion. CONCLUSIONS -------- 1. The left ventricle is mildly dilated. 2. There is moderate concentric left ventricular hypertrophy. 3. Overall left ventricular systolic function is severely impaired with, an EF between 20 - 25 %. 4. The right ventricle is severely enlarged. 5. LA is severely dilated >40 ml/m2 6. The right atrium is normal in size. 7. There is mild aortic valve sclerosis. 8. The mitral valve leaflets are mildly thickened. 9. Moderate mitral regurgitation is present. 10. Mild tricuspid regurgitation present. 11. There is mild to moderate pulmonary hypertension. 12. The right ventricular systolic pressure, as measured by Doppler, is 45.66mmHg. 13. Trace/mild (physiologic) pulmonic regurgitation. 14. The aortic root size is normal. 15. The inferior vena cava is dilated with no significant inspiratory collapse which is consistent es timated right atrial pressure of >15 mmHg. 16. There is no pericardial effusion. MARINE ENGINE MACHINIST: Chelsey Zapata [facility]
[2018-01-05] MEDS: ALPRAZolam 0.5 MG TAB PO SCH ×2 (17:38→21:20)
[2018-01-05] MEDS: ALBUTEROL NEBULIZED 2.5 MG/3 ML INHALATION SCH ×2 (19:07→19:56)
[2018-01-06 06:41] LABS: Basophils % (A) 1 %; Eosinophils # (A) 0.3 k/uL (0-0.7); Eosinophils % (A) 5 %; HCT 42.2 % (39.0-53.0); HGB 12.9 gm/dL (13.0-17.5); Lymphocytes # (A) 1.7 k/uL (1.0-4.8); Lymphocytes % (A) 24 %; MCH 28.9 pg (25.0-35.0); MCHC 30.6 g/dL (31.0-37.0); MCV 94.3 fL (80.0-100.0); Mean Platelet Volume 6.7; Monocytes # (A) 0.4 k/uL (0-1.0); Monocytes % (A) 6 %; Neutrophils # (A) 4.4 k/uL (1.3-7.7); Neutrophils % (A) 63 %; Platelet Count 268 k/uL (150-450); RBC 4.47 m/uL (4.30-5.90); RDW 14.5 % (11.5-15.5)
[2018-01-06 06:54] LABS: ALT 77 U/L (21-72); AST 44 U/L (17-59); Albumin 3.4 g/dL (3.5-5.0); Alkaline Phosphatase 61 U/L (38-126); Anion Gap 5 mmol/L; Blood Urea Nitrogen 22 mg/dL (9-20); Calcium 9.2 mg/dL (8.4-10.2); Carbon Dioxide 31 mmol/L (22-30); Chloride 104 mmol/L (98-107); Glucose 115 mg/dL (74-99); Potassium 4.3 mmol/L (3.5-5.1); Sodium 140 mmol/L (137-145); Total Bilirubin 0.3 mg/dL (0.2-1.3); Total Protein 5.5 g/dL (6.3-8.2)
[2018-01-06] MEDS: FUROSEMIDE 10 MG/ML 4 ML VIAL IV SCH ×2 (06:57→18:02)
[2018-01-06] MEDS: HYDROcodone/APAP 5-325MG 1 EACH TAB PO PRN ×3 (07:03→21:39)
[2018-01-06] MEDS: ALBUTEROL NEBULIZED 2.5 MG/3 ML INHALATION SCH ×4 (07:27→21:11)
[2018-01-06] MEDS: SYMBICORT 160-4.5 MCG INHALER INHALATION SCH ×2 (07:36→21:11)
[2018-01-06] MEDS: ASPIRIN 81 MG PO SCH (08:24)
[2018-01-06] MEDS: METOPROLOL TARTRATE 50 MG TAB PO SCH ×2 (08:24→21:00)
[2018-01-06] MEDS: CLOPIDOGREL 75 MG TAB PO SCH (08:24)
[2018-01-06] MEDS: ATORVASTATIN 40 MG TAB PO SCH (08:24)
[2018-01-06] MEDS: ALPRAZolam 0.5 MG TAB PO SCH ×3 (08:24→21:00)
--- NOTE | 2018-01-06 13:03 | P.PN ---
Subjective Progress Note Date: 01/06/18 57 years old gentleman patient of Dr. Ch and Dr. Paiz presents with past medical history of coronary artery disease with previous placement of stent in 2013 and coronary artery bypass in August this year with JACKSON to LAD, reverse saphenous vein graft from the aorta to the diagonal artery, reverse saphenous vein graft from aorta to the posterior descending artery, history of hypertension hyperlipidemia, COPD, former tobacco abuse presents with history of shortness of breath that was worsening for the past 2 weeks with swelling in the lower extremity for a month. According to patient he was unable to lay flat in his bed due to the shortness of breath. He also is complains of extreme tiredness checked for sleep apnea. He was prescribed CPAP which is one unable to tolerate due to sinus issues. Vitals were obtained in the ER with concern of hypoxia patient is continues to require 3-4 L of oxygen and saturating at 95-96%. There was a concern for COPD exacerbation and CHF exacerbation. Labs were obtained with suggested of a d-dimer of 0.78 followed by a CTA which suggested no pulmonary embolism but signs of emphysema and pulmonary fibrosis. BMP suggestive of increased AST and ALT stop troponin was elevated 0.067 down trended to 0.054 UA was without any sign of infection. BNP was elevated to 6880. Patient was initiated on Lasix 40 IV twice a day for diuresis. Patient is feeling better since yesterday as per the shortness of breath is concerned. He denies any chest pain or palpitations, cough, phlegm production, recent smoke inhalation. 01/06 Patient examined bedside. Feels shortness of breath is improved since yesterday. Patient is known to buy street drugs in for his pain as is unable to provide the pain medication he is asking for for his bulging disc. Patient does not want to have the AICD placed for his ischemic cardiomyopathy but is willing to continue taking his medications for his heart to help recover the ejection fraction. Patient is currently not taking medication consistently. recording studio setup worker will be consulted for assistance in medication. He would need a pain specialist referral on discharge Objective - Vital Signs Vital signs: Vital Signs Temp 97.6 F 01/06/18 12:00 Pulse 81 01/06/18 12:00 Resp 18 01/06/18 12:00 BP 125/84 01/06/18 12:00 Pulse Ox 94 L 01/06/18 12:00 Intake & Output 01/05/18 01/06/18 01/06/18 18:59 06:59 18:59 Intake Total 360 120 Output Total 182 2250 1500 Balance -1465 -2250 -1380 Weight 91.3 kg 86.5 kg Intake: Oral 360 120 Output: Urine 1824 2250 1500 Other: Voiding Method Urinal Urinal - Exam - Constitutional General appearance: cooperative, no acute distress, obese - EENT Eyes: anicteric sclerae, PERRLA, normal appearance ENT: hearing grossly normal - Neck Neck: no lymphadenopathy, normal ROM, no other, no rigidity, no stridor, no thyromegaly - Respiratory Respiratory: bilateral: Decreased air entry bilaterally, crackles at the bases, wheezing bilaterally more in the posterior lungs. - Cardiovascular Rhythm: regular Heart sounds: normal: S1, S2 Abnormal Heart Sounds: no systolic murmur, no diastolic murmur, no rub, no S3 Gallop, no S4 Gallop, no click, 1+ pitting edema lower extremities. - Gastrointestinal General gastrointestinal: normal bowel sounds, soft - Integumentary Integumentary: no rash - Neurologic Neurologic: CNII-XII intact - Musculoskeletal Musculoskeletal: gait normal, strength equal bilaterally - Psychiatric Psychiatric: A&O x's 3, appropriate affect - Labs CBC & Chem 7: 01/06/18 05:34 01/06/18 05:34 Labs: Abnormal Lab Results - Last 24 Hours (Table) 01/05/18 01/06/18 01/06/18 Range/Units 13:23 05:34 05:34 Hgb 12.9 L (13.0-17.5) gm/dL MCHC 30.6 L (31.0-37.0) g/dL Carbon Dioxide 31 H (22-30) mmol/L BUN 22 H (9-20) mg/dL Glucose 115 H (74-99) mg/dL ALT 77 H (21-72) U/L CK-MB (CK-2) 3.4 H* (0.0-2.4) ng/mL Troponin I 0.050 H* (0.000-0.034) ng/mL Total Protein 5.5 L (6.3-8.2) g/dL Albumin 3.4 L (3.5-5.0) g/dL Assessment and Plan Plan: #1 acute hypoxic respiratory failure secondary to acute systolic congestive heart failure acute on chronic with ejection fraction last reported to be 20-25% . Repeat echocardiogram similar results. Continue patient on aspirin 81 mg, metoprolol, losartan continue Lipitor. Patient is a candidate for AICD placement and is in discussion with Dr. Ch in the clinic outpatient. Continue Lasix 40 IV twice a day Will switch to oral medication tomorrow. #2 history of coronary artery disease with previous stenting in 2013 followed by coronary artery bypass in August 2017 stop continue aspirin 81, metoprolol, losartan and Lipitor #3 hypertension continue metoprolol, losartan #4 hyperlipidemia continue Lipitor #5 COPD. Wheezing on examination but no signs of acute COPD exacerbation. Likely secondary to fluid overload. 2. #6 acute transaminitis. Likely secondary to congestion. Repeat LFTs tomorrow. CODE STATUS full code #8 DVT prophylaxis with heparin every 12 #9 disposition likely tomorrow after social work visit the patient
[2018-01-06] MEDS: NICOTINE 21MG/24HR PATCH TRANSDERM SCH (16:04)
[2018-01-07] MEDS: HYDROcodone/APAP 5-325MG 1 EACH TAB PO PRN ×4 (02:39→21:34)
[2018-01-07 06:24] LABS: Basophils % (A) 1 %; Eosinophils # (A) 0.3 k/uL (0-0.7); Eosinophils % (A) 4 %; HCT 44.2 % (39.0-53.0); HGB 14.1 gm/dL (13.0-17.5); Lymphocytes # (A) 1.7 k/uL (1.0-4.8); Lymphocytes % (A) 21 %; MCH 29.9 pg (25.0-35.0); MCHC 31.9 g/dL (31.0-37.0); MCV 93.7 fL (80.0-100.0); Mean Platelet Volume 6.2; Monocytes # (A) 0.6 k/uL (0-1.0); Monocytes % (A) 7 %; Neutrophils # (A) 5.4 k/uL (1.3-7.7); Neutrophils % (A) 65 %; Platelet Count 320 k/uL (150-450); RBC 4.71 m/uL (4.30-5.90); RDW 14.8 % (11.5-15.5); WBC 8.2 k/uL (3.8-10.6)
[2018-01-07] MEDS: FUROSEMIDE 10 MG/ML 4 ML VIAL IV SCH ×2 (06:29→18:20)
[2018-01-07 06:34] LABS: ALT 70 U/L (21-72); AST 39 U/L (17-59); Albumin 3.6 g/dL (3.5-5.0); Alkaline Phosphatase 63 U/L (38-126); Anion Gap 7 mmol/L; Blood Urea Nitrogen 30 mg/dL (9-20); Calcium 9.2 mg/dL (8.4-10.2); Carbon Dioxide 30 mmol/L (22-30); Chloride 102 mmol/L (98-107); Glucose 106 mg/dL (74-99); Potassium 4.6 mmol/L (3.5-5.1); Sodium 139 mmol/L (137-145); Total Bilirubin 0.4 mg/dL (0.2-1.3); Total Protein 5.9 g/dL (6.3-8.2)
--- NOTE | 2018-01-07 08:28 | XR ---
EXAMINATION TYPE: XR chest 2V DATE OF EXAM: 01/07/2018 COMPARISON: Prior chest x-ray 01/05/2018 HISTORY: Follow-up congestive heart failure, shortness of breath and cough TECHNIQUE: Frontal and lateral views of the chest are obtained. FINDINGS: Heart remains enlarged, patient is post median sternotomy. There is improvement in the sunshine tral vascularity and interstitium. No evident pneumothorax or sizable effusion. Right hemidiaphragm r emains elevated, patchy basilar density may reflect atelectasis. There are overlying cardiac leads. IMPRESSION: Improvement in volume status, aeration
[2018-01-07] MEDS: ALBUTEROL NEBULIZED 2.5 MG/3 ML INHALATION SCH ×4 (08:34→20:08)
[2018-01-07] MEDS: SYMBICORT 160-4.5 MCG INHALER INHALATION SCH ×2 (08:34→20:08)
[2018-01-07] MEDS: ATORVASTATIN 40 MG TAB PO SCH (09:01)
[2018-01-07] MEDS: NICOTINE 21MG/24HR PATCH TRANSDERM SCH (09:01)
[2018-01-07] MEDS: ALPRAZolam 0.5 MG TAB PO SCH ×3 (09:01→22:33)
[2018-01-07] MEDS: METOPROLOL TARTRATE 50 MG TAB PO SCH ×2 (09:01→19:58)
[2018-01-07] MEDS: ASPIRIN 81 MG PO SCH (09:01)
[2018-01-07] MEDS: CLOPIDOGREL 75 MG TAB PO SCH (09:01)
[2018-01-07] MEDS: SACUBITRIL/VALSARTAN 24 MG-26 MG TABLET PO SCH ×2 (12:33→19:58)
--- NOTE | 2018-01-07 14:18 | P.PN ---
Subjective Progress Note Date: 01/07/18 This is a pleasant 57-year-old gentleman who follows regularly with Dr. Ch in the office. He has known history of coronary artery disease with prior stent placement of the circumflex in 2013, most recently in August of this year the patient underwent coronary artery bypass grafting surgery where he underwent a JACKSON to the LAD, reverse saphenous vein graft from the aorta to the diagonal artery, reverse saphenous vein graft from the aorta to the posterior descending artery, history also of hypertension, hyperlipidemia, emphysema, nicotine dependence. He presents to the hospital on this occasion with symptoms of progressively worsening shortness of breath over approximately 2 week duration. Patient also states he's been noticing edema in his extremities and he's been having to sleep in his lazy boy chair because he is unable to lie flat. He denies any recent angina. Chest x-ray shows congestive heart failure which is new as compared with prior exam. CTA of the chest does not reveal any evidence of a pulmonary embolism. Pulmonary emphysema and pulmonary fibrosis. Moderate cardiomegaly. Increased right bronchial adenopathy compared with prior exam which is likely related to inflammatory process. EKG shows a normal sinus rhythm with nonspecific ST-T wave changes in the lateral leads. Blood pressure 140/90 with a heart rate in the 80s, afebrile. White blood cell count 7.2, hemoglobin 13, platelet count 269. D-dimer 0.7. Sodium 140, potassium 4.9 , BUN 20, creatinine 0.8. AST 65, ALT 94. Troponin 0.067, 0.054. BNP level 6880. Patient was initiated on IV Lasix in the emergency room, he has been diuresing well through the night last night. At the time of my examination this morning, patient states his breathing is improving however he is still quite short of breath. 01/07/2018 Patient seen and examined this morning, continues to be quite short of breath. He has been diuresing through the night. Chest x-ray revealed improvement in volume status post total showed congestive heart failure. We will continue current dose of IV Lasix. We will also initiate Entresto. today. Objective - Vital Signs Vital signs: Vital Signs Temp 97.1 F L 01/07/18 08:00 Pulse 84 01/07/18 12:23 Resp 18 01/07/18 04:00 BP 120/80 01/07/18 12:00 Pulse Ox 94 L 01/07/18 12:00 Intake & Output 01/06/18 01/07/18 01/07/18 18:59 06:59 18:59 Intake Total 600 480 Output Total 1800 1050 450 Balance -1200 -1050 30 Weight 85.6 kg Intake: Oral 600 480 Output: Urine 1800 1050 450 Other: Voiding Method Urinal # Voids 1 - Exam PHYSICAL EXAMINATION: GENERAL: 57-year-old gentleman in no acute distress at the time of my examination HEENT: Head is atraumatic, normocephalic. Pupils equal, round. Sclera anicteric. Conjunctiva are clear. Mucous membranes of the mouth are moist. Neck is supple. There is elevated jugular venous pressure to the angle of the jaw. No carotid bruit is heard. HEART EXAMINATION: Heart S1, S2 normal. Systolic murmur suggestive of mitral insuff CHEST EXAMINATION: Lungs reveal rales to bilateral bases, scattered coarse wheezing, with diminished air entry to the bases. ABDOMEN: Mildly distended , nontender. Bowel sounds are heard. No organomegaly noted. EXTREMITIES: 2+ peripheral pulses with 1+ evidence of peripheral edema and no calf tenderness noted. NEUROLOGIC patient is awake, alert and orientedX3 . - Labs CBC & Chem 7: 01/07/18 06:08 01/07/18 06:08 Labs: Abnormal Lab Results - Last 24 Hours (Table) 01/07/18 Range/Units 06:08 BUN 30 H (9-20) mg/dL Glucose 106 H (74-99) mg/dL Total Protein 5.9 L (6.3-8.2) g/dL Assessment and Plan Plan: Assessment and plan #1 systolic congestive heart failure acute on chronic. Most recent echocardiogram with Doppler study was performed in August of this year which revealed an ejection fraction of 20-25%. #2 known history of coronary artery disease with prior stent placement of the RCA and circumflex in 2013 subsequently patient underwent coronary artery bypass grafting surgery in August of this she #3 hypertension #4 hyperlipidemia #5 nicotine dependence #6 COPD #7 mildly abnormal liver functions, likely secondary to congestion. #8 ischemic cardiomyopathy, it has been discussed with the patient in the office by Dr. 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 Plan Continue patient on current dose of IV Lasix. We will also start Entresto today. Lytes BUN and creatinine in the morning. DNP note has been reviewed, I agree with a documented findings and plan of care. Patient was seen and examined.
--- NOTE | 2018-01-07 14:42 | P.PN ---
Subjective Progress Note Date: 01/07/18 57 years old gentleman patient of Dr. Ch and Dr. Paiz presents with past medical history of coronary artery disease with previous placement of stent in 2013 and coronary artery bypass in August this year with JACKSON to LAD, reverse saphenous vein graft from the aorta to the diagonal artery, reverse saphenous vein graft from aorta to the posterior descending artery, history of hypertension hyperlipidemia, COPD, former tobacco abuse presents with history of shortness of breath that was worsening for the past 2 weeks with swelling in the lower extremity for a month. According to patient he was unable to lay flat in his bed due to the shortness of breath. He also is complains of extreme tiredness checked for sleep apnea. He was prescribed CPAP which is one unable to tolerate due to sinus issues. Vitals were obtained in the ER with concern of hypoxia patient is continues to require 3-4 L of oxygen and saturating at 95-96%. There was a concern for COPD exacerbation and CHF exacerbation. Labs were obtained with suggested of a d-dimer of 0.78 followed by a CTA which suggested no pulmonary embolism but signs of emphysema and pulmonary fibrosis. BMP suggestive of increased AST and ALT stop troponin was elevated 0.067 down trended to 0.054 UA was without any sign of infection. BNP was elevated to 6880. Patient was initiated on Lasix 40 IV twice a day for diuresis. Patient is feeling better since yesterday as per the shortness of breath is concerned. He denies any chest pain or palpitations, cough, phlegm production, recent smoke inhalation. 01/06 Patient examined bedside. Feels shortness of breath is improved since yesterday. Patient is known to buy street drugs in for his pain as is unable to provide the pain medication he is asking for for his bulging disc. Patient does not want to have the AICD placed for his ischemic cardiomyopathy but is willing to continue taking his medications for his heart to help recover the ejection fraction. Patient is currently not taking medication consistently. telephone worker will be consulted for assistance in medication. He would need a pain specialist referral on discharge 01/07: Echocardiogram reveals EF of 20-25%, LA severely dilated greater than 40, mild aortic valve sclerosis, moderate mitral regurgitation, mild tricuspid regurgitation, moderate pulmonary hypertension. Chest x-ray shows improvement in volume status. Patient is followed by cardiology and Entresto to be started today. Patient to remain on IV Lasix one more day. We have added in consult with pain management. Patient is noted to have some shortness of breath with walking to the bathroom and back to his bed. He denies any shortness of breath. He is currently on a nicotine patch. Objective - Vital Signs Vital signs: Vital Signs Temp 97.1 F L 01/07/18 08:00 Pulse 82 01/07/18 08:44 Resp 18 01/07/18 04:00 BP 121/65 01/07/18 08:00 Pulse Ox 94 L 01/07/18 08:00 Intake & Output 01/06/18 01/07/18 01/07/18 18:59 06:59 18:59 Intake Total 600 240 Output Total 1800 1050 450 Balance -1200 -1050 -210 Weight 85.6 kg Intake: Oral 600 240 Output: Urine 1800 1050 450 Other: Voiding Method Urinal # Voids 1 - Exam - Constitutional General appearance: cooperative, no acute distress, obese - EENT Eyes: anicteric sclerae, PERRLA, normal appearance ENT: hearing grossly normal - Neck Neck: no lymphadenopathy, normal ROM, no other, no rigidity, no stridor, no thyromegaly - Respiratory Respiratory: bilateral: Decreased air entry bilaterally, crackles at the bases, wheezing bilaterally more in the posterior lungs. - Cardiovascular Rhythm: regular Heart sounds: normal: S1, S2 Abnormal Heart Sounds: no systolic murmur, no diastolic murmur, no rub, no S3 Gallop, no S4 Gallop, no click, 1+ pitting edema lower extremities. - Gastrointestinal General gastrointestinal: normal bowel sounds, soft - Integumentary Integumentary: no rash - Neurologic Neurologic: CNII-XII intact - Musculoskeletal Musculoskeletal: gait normal, strength equal bilaterally - Psychiatric Psychiatric: A&O x's 3, appropriate affect - Labs CBC & Chem 7: 01/07/18 06:08 01/07/18 06:08 Labs: Abnormal Lab Results - Last 24 Hours (Table) 01/07/18 Range/Units 06:08 BUN 30 H (9-20) mg/dL Glucose 106 H (74-99) mg/dL Total Protein 5.9 L (6.3-8.2) g/dL Assessment and Plan Plan: #1 acute hypoxic respiratory failure secondary to acute on chronic systolic heart failure acute with ejection fraction 20-25%. Continue patient on aspirin 81 mg, metoprolol, losartan continue Lipitor. Patient is a candidate for AICD placement and is in discussion with Dr. Ch in the clinic outpatient. Continue Lasix 40 IV twice a day Will switch to oral medication tomorrow. #2 history of coronary artery disease with previous stenting in 2013 followed by coronary artery bypass in August 2017 stop continue aspirin 81, metoprolol, losartan and Lipitor #3 hypertension continue metoprolol, losartan #4 hyperlipidemia continue Lipitor #5 COPD. Wheezing on examination but no signs of acute COPD exacerbation. Likely secondary to fluid overload. #6 acute transaminitis. Likely secondary to congestion. Repeat LFTs tomorrow. CODE STATUS full code #8 DVT prophylaxis with heparin every 12 9. Chronic pain. Consult with pain management. Discharge plan: Home in the next 24 hours Impression and plan of care have been directed as dictated by the signing physician. Isabelle Andersen nurse practitioner acting as scribe for signing physician.
--- NOTE | 2018-01-07 16:24 | P.PAINCN ---
History of Present Illness - Reason for Consult Consult date: 01/07/18 - History of Present Illness This is 57 years old male with a chronic history of severe low back pain, started more than 3 years ago, patient denies any initiating event that he reported that he used to do a lot of hard work, and heavy lifting, and intensity of the pain increased over time , currently patient admitted to [facility] because of shortness of breath, and pain management consultation was requested because of severe low back pain, patient reported that his pain is localized in the low back area increases with any activity, he was evaluated by a pain physician in the past, but he never had any interventions, because he is concerned about the complications, he uses different pain medication in the past, and is currently on Castalia 5/325 without any significant improvement, currently he is admitted because of shortness of breath and CHF exacerbation, and COPD exacerbation Past Medical History Past Medical History: Coronary Artery Disease (CAD), COPD, Hyperlipidemia, Hypertension, Myocardial Infarction ([place]) Additional Past Medical History / Comment(s): Emphesema Last Myocardial Infarction Date:: 2012 History of Any Multi-Drug Resistant Organisms: MRSA Year Discovered:: 02/08/09 MDRO Source:: Leg Past Surgical History: Coronary Bypass/CABG, Heart Catheterization With Stent Additional Past Surgical History / Comment(s): CABG 2017 3 vessel Past Anesthesia/Blood Transfusion Reactions: No Reported Reaction Date of Last Stent Placement:: 2012 Past Psychological History: No Psychological Hx Reported Smoking Status: Former smoker Past Alcohol Use History: None Reported Past Drug Use History: None Reported - Past Family History Father Family Medical History: Cancer Additional Family Medical History / Comment(s): Pancreatic CA Mother Family Medical History: Cancer Additional Family Medical History / Comment(s): Leukemia Medications and Allergies Home Medications Medication Instructions Recorded Confirmed Type Aspirin 325 mg PO DAILY tab 08/21/16 01/05/18 Rx Albuterol Sulfate [Proventil Hfa] 1 - 2 puff INHALATION RT-Q6H PRN 08/31/1609/19 Rx #1 hfa.aer.ad Atorvastatin [Lipitor] 40 mg PO DAILY #30 tab 08/31/16 01/05/18 Rx Clopidogrel [Plavix] 75 mg PO DAILY #30 tab 08/31/16 01/05/18 Rx Metoprolol Tartrate [Lopressor] 50 mg PO BID #60 tab 08/31/16 01/05/18 Rx Hydrocodone/Acetaminophen [Castalia 1 tab PO Q6HR PRN #20 tab 09/02/17 01/05/18 Rx 5-325] Oxymetazoline 0.05% Nasl Magazine 2 spray EA NOSTRIL BID PRN 09/02/17 01/05/18 History [Afrin 0.05% Nasal Magazine] Albuterol Nebulized [Ventolin 2.5 mg PO RT-QID PRN 01/07/18 01/07/18 History Nebulized] Budesonide [Pulmicort] 0.5 mg INHALATION RT-BID 01/07/18 01/07/18 History Losartan Potassium [Cozaar] 50 mg PO DAILY 01/07/18 01/07/18 History Nitroglycerin Sl Tabs [Nitrostat] 0.4 mg SUBLINGUAL Q5M PRN 01/07/18 01/07/18 History Allergies Allergy/AdvReac Type Severity Reaction Status Date / Time No Known Allergies Allergy Verified 01/05/18 12:06 Physical Exam Vitals: Vital Signs Temp Pulse Pulse Resp BP BP Pulse Ox 01/07/18 16:13 76 01/07/18 16:01 72 01/07/18 12:23 84 01/07/18 12:11 88 01/07/18 12:00 76 120/80 94 L 01/07/18 08:44 82 01/07/18 08:36 80 01/07/18 08:00 97.1 F L 79 121/65 94 L 01/07/18 04:00 78 18 115/78 93 L 01/07/18 00:00 75 18 114/68 91 L 01/06/18 21:24 88 18 01/06/18 21:11 83 18 01/06/18 20:00 98 F 78 18 118/84 93 L 01/06/18 17:01 77 16 01/06/18 16:52 76 16 93 L Intake and Output 01/07/18 01/07/18 01/07/18 06:59 14:59 22:59 Intake Total 480 Output Total 150 450 Balance -150 30 Intake: Oral 480 Output: Urine 150 450 Other: Voiding Method Urinal Weight 85.6 kg Physical Examinations : 1-Constitutional : Cooperative , not in acute distress . 2-HEENT : nech ; supple , no Lymphadenopathy , no Thyromegaly , :eyes , no icterus, no photophobia . ENT : , normal oropharynx , no Thrush 3- Respiratory : Chest clear to auscultations Bilaterally , no wheezing . 4- Cardiovascular : regular rate and rhythem , S1 , S2 , no S3 , no S4. 5- Gastrointestinal: abdomen soft no tenderness , no organomegally . 6- Genitourinary : Defferred . 7-Integumentary : No cellulitis , no ulcers , normal skin turgor , no cyanotic . 8- neurologic : Cranial nerve II to XII intact , no focal neurological deffecit 9-psychatric : alert , oriented X 3 , appropriate affect , intact judgment and insight . 10-Lymphatic : no Lymphadenopathy. 11- musculoskeltal: normal gait Lumber spine moter stegnth lower extremities ,thigh and legs 5/5 Right side , 5/5 Left side deep tendon reflexes : normal Knee Jerk , normal ankle Jerk positive lumber facet Loading Test Range of motion of the lumbar spine Flexion 30 degrees, extension 10 degrees strait leg raising test , positive at degree Fabere test positive RT and positive LT . Sever tenderness over the Sacroiliac joint on the R and L sides Results CBC & Chem 7: 01/07/18 06:08 18 06:08 Labs: Abnormal Lab Results - Last 24 Hours (Table) 01/07/18 Range/Units 06:08 BUN 30 H (9-20) mg/dL Glucose 106 H (74-99) mg/dL Total Protein 5.9 L (6.3-8.2) g/dL Assessment and Plan Plan: Assessment and plan= Chronic low back pain secondary to lumbar spondylosis, and possible lumbar degenerative disc disease We don't have any diagnostic studies to confirm the diagnosis. Patient currently admitted to [facility] with COPD exacerbation and CHF exacerbation, his currently on Plavix Patient is not a good candidate to have interventional pain management procedure unless we hold Plavix for one week. Patient can be seen as an outpatient, and we will order MRI of the lumbar spine as an outpatient, and if he decided to proceed with interventional pain management then we can get partnership development manager's approval to hold Plavix Time with Patient: Greater than 30 PQRS Measure Charge Sheet PQRS Narrative: Smoking Status Former smoker Blood Pressure [Left Arm] 120/80 Blood Pressure [Right Arm] 118/84 Blood Pressure 137/68 Pain Intensity [Back] 4 Pain Intensity [None] 6 Pain Intensity 7 Pain Scale Used Numeric (1 - 10) Scale Used Numeric (1 - 10) Home Medications: Ambulatory Orders Aspirin 325 mg PO DAILY tab 08/21/16 Albuterol Sulfate [Proventil Hfa] 1 - 2 puff INHALATION RT-Q6H PRN #1 hfa.aer.ad 08/31/16 Atorvastatin [Lipitor] 40 mg PO DAILY #30 tab 08/31/16 Clopidogrel [Plavix] 75 mg PO DAILY #30 tab 08/31/16 Metoprolol Tartrate [Lopressor] 50 mg PO BID #60 tab 08/31/16 Hydrocodone/Acetaminophen [Castalia 5-325] 1 tab PO Q6HR PRN #20 tab 09/02/17 Oxymetazoline 0.05% Nasl Magazine [Afrin 0.05% Nasal Magazine] 2 spray EA NOSTRIL BID PRN 09/02/17 Albuterol Nebulized [Ventolin Nebulized] 2.5 mg PO RT-QID PRN 01/07/18 Budesonide [Pulmicort] 0.5 mg INHALATION RT-BID 01/07/18 Losartan Potassium [Cozaar] 50 mg PO DAILY 01/07/18 Nitroglycerin Sl Tabs [Nitrostat] 0.4 mg SUBLINGUAL Q5M PRN 01/07/18
--- NOTE | 2018-01-07 16:41 | PN ---
PROGRESS NOTE This patient has ischemic cardiomyopathy and congestive cardiac failure. Patient is feeling better. He is mildly short of breath with activities but denies any orthopnea or PND. Patient is afebrile. Oxygen saturation is 93%. Blood pressure is 115/78 mmHg. First and second heart sounds are normal. Lungs are fairly clear to auscultation and percussion. Patient has lost 6 kg of weight. Creatinine remains stable. Patient will be started on Entresto from tomorrow. It was again discussed with the patient regarding AICD and the patient is not interested at present. MMODL / IJN: [id number] /
[2018-01-08] MEDS ORDERED: traMADol 50 MG TAB PO STA (00:33)
[2018-01-08] MEDS: HYDROcodone/APAP 7.5-325MG 1 EACH TAB PO PRN ×4 (03:30→22:20)
[2018-01-08] MEDS: FUROSEMIDE 10 MG/ML 4 ML VIAL IV SCH (06:22)
[2018-01-08 06:27] LABS: Basophils # (A) 0.1 k/uL (0-0.2); Basophils % (A) 1 %; Eosinophils # (A) 0.4 k/uL (0-0.7); Eosinophils % (A) 5 %; HCT 49.1 % (39.0-53.0); HGB 15.6 gm/dL (13.0-17.5); Lymphocytes % (A) 25 %; MCH 29.7 pg (25.0-35.0); MCHC 31.8 g/dL (31.0-37.0); MCV 93.5 fL (80.0-100.0); Mean Platelet Volume 6.7; Monocytes # (A) 0.6 k/uL (0-1.0); Monocytes % (A) 7 %; Neutrophils # (A) 4.8 k/uL (1.3-7.7); Neutrophils % (A) 60 %; Platelet Count 342 k/uL (150-450); RBC 5.25 m/uL (4.30-5.90); RDW 14.6 % (11.5-15.5); WBC 8.1 k/uL (3.8-10.6)
[2018-01-08 06:44] LABS: ALT 61 U/L (21-72); AST 38 U/L (17-59); Albumin 3.8 g/dL (3.5-5.0); Alkaline Phosphatase 71 U/L (38-126); Anion Gap 7 mmol/L; Blood Urea Nitrogen 29 mg/dL (9-20); Calcium 9.5 mg/dL (8.4-10.2); Carbon Dioxide 30 mmol/L (22-30); Chloride 102 mmol/L (98-107); Glucose 103 mg/dL (74-99); Potassium 4.9 mmol/L (3.5-5.1); Sodium 139 mmol/L (137-145); Total Bilirubin 0.4 mg/dL (0.2-1.3); Total Protein 6.1 g/dL (6.3-8.2)
[2018-01-08] MEDS: CLOPIDOGREL 75 MG TAB PO SCH (08:27)
[2018-01-08] MEDS: ASPIRIN 81 MG PO SCH (08:27)
[2018-01-08] MEDS: SACUBITRIL/VALSARTAN 24 MG-26 MG TABLET PO SCH ×2 (08:27→22:23)
[2018-01-08] MEDS: METOPROLOL TARTRATE 50 MG TAB PO SCH ×2 (08:27→22:23)
[2018-01-08] MEDS: NICOTINE 21MG/24HR PATCH TRANSDERM SCH (08:27)
[2018-01-08] MEDS: ALPRAZolam 0.5 MG TAB PO SCH ×3 (08:28→18:18)
[2018-01-08] MEDS: ATORVASTATIN 40 MG TAB PO SCH (08:29)
[2018-01-08] MEDS: SYMBICORT 160-4.5 MCG INHALER INHALATION SCH ×2 (08:48→20:05)
[2018-01-08] MEDS: ALBUTEROL NEBULIZED 2.5 MG/3 ML INHALATION SCH ×4 (08:48→20:04)
--- NOTE | 2018-01-08 14:59 | P.PN ---
Subjective Progress Note Date: 01/08/18 This is a pleasant 57-year-old gentleman who follows regularly with Dr. Ch in the office. He has known history of coronary artery disease with prior stent placement of the circumflex in 2013, most recently in August of this year the patient underwent coronary artery bypass grafting surgery where he underwent a JACKSON to the LAD, reverse saphenous vein graft from the aorta to the diagonal artery, reverse saphenous vein graft from the aorta to the posterior descending artery, history also of hypertension, hyperlipidemia, emphysema, nicotine dependence. He presents to the hospital on this occasion with symptoms of progressively worsening shortness of breath over approximately 2 week duration. Patient also states he's been noticing edema in his extremities and he's been having to sleep in his lazy boy chair because he is unable to lie flat. He denies any recent angina. Chest x-ray shows congestive heart failure which is new as compared with prior exam. CTA of the chest does not reveal any evidence of a pulmonary embolism. Pulmonary emphysema and pulmonary fibrosis. Moderate cardiomegaly. Increased right bronchial adenopathy compared with prior exam which is likely related to inflammatory process. EKG shows a normal sinus rhythm with nonspecific ST-T wave changes in the lateral leads. Blood pressure 140/90 with a heart rate in the 80s, afebrile. White blood cell count 7.2, hemoglobin 13, platelet count 269. D-dimer 0.7. Sodium 140, potassium 4.9 , BUN 20, creatinine 0.8. AST 65, ALT 94. Troponin 0.067, 0.054. BNP level 6880. Patient was initiated on IV Lasix in the emergency room, he has been diuresing well through the night last night. At the time of my examination this morning, patient states his breathing is improving however he is still quite short of breath. 01/07/2018 Patient seen and examined this morning, continues to be quite short of breath. He has been diuresing through the night. Chest x-ray revealed improvement in volume status post total showed congestive heart failure. We will continue current dose of IV Lasix. We will also initiate Entresto. today. 01/08/2018 Patient seen and examined this morning, breathing is improving overall. Again diuresed well through the night last night, weight is down 1 kg today. BUN 29, creatinine 0.8. Blood pressure in the low 90s systolic. We will discontinue the IV Lasix and put the patient on 40 mg by mouth twice a day. Continue to monitor for 24 hours. Patient has also been instructed to ambulate in the hallway without oxygen to assess his need for oxygen. Objective - Vital Signs Vital signs: Vital Signs Temp 96.9 F L 01/08/18 12:00 Pulse 69 01/08/18 12:00 Resp 20 01/08/18 12:00 BP 103/57 01/08/18 12:00 Pulse Ox 94 L 01/08/18 12:00 Intake & Output 01/07/18 01/08/18 01/08/18 18:59 06:59 18:59 Intake Total 580 200 390 Output Total 450 1350 520 Balance 130 -1150 -130 Weight 84.5 kg Intake: Oral 580 200 390 Output: Urine 450 1350 520 Other: Voiding Method Urinal Urinal - Exam PHYSICAL EXAMINATION: GENERAL: 57-year-old gentleman in no acute distress at the time of my examination HEENT: Head is atraumatic, normocephalic. Pupils equal, round. Sclera anicteric. Conjunctiva are clear. Mucous membranes of the mouth are moist. Neck is supple. There is elevated jugular venous pressure to the angle of the jaw. No carotid bruit is heard. HEART EXAMINATION: Heart S1, S2 normal. Systolic murmur suggestive of mitral insuff CHEST EXAMINATION: Lungs reveal improvement in air entry to bilateral bases. ABDOMEN: Mildly distended , nontender. Bowel sounds are heard. No organomegaly noted. EXTREMITIES: 2+ peripheral pulses with 1+ evidence of peripheral edema and no calf tenderness noted. NEUROLOGIC patient is awake, alert and orientedX3 . - Labs CBC & Chem 7: 01/08/18 05:47 01/08/18 05:47 Labs: Abnormal Lab Results - Last 24 Hours (Table) 01/08/18 Range/Units 05:47 BUN 29 H (9-20) mg/dL Glucose 103 H (74-99) mg/dL Total Protein 6.1 L (6.3-8.2) g/dL Assessment and Plan Plan: Assessment and plan #1 systolic congestive heart failure acute on chronic. Most recent echocardiogram with Doppler study was performed in August of this year which revealed an ejection fraction of 20-25%. #2 known history of coronary artery disease with prior stent placement of the RCA and circumflex in 2013 subsequently patient underwent coronary artery bypass grafting surgery in August of this she #3 hypertension #4 hyperlipidemia #5 nicotine dependence #6 COPD #7 mildly abnormal liver functions, likely secondary to congestion. #8 ischemic cardiomyopathy, it has been discussed with the patient in the office by Dr. 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 Plan We'll discontinue the IV Lasix and change the patient over to oral diuretics today. Continue to monitor intake and output along with daily weights daily lytes BUN and creatinine. Check O2 sat with ambulation. Plan for possible discharge home in the morning if stable. DNP note has been reviewed, I agree with a documented findings and plan of care. Patient was seen and examined.
--- NOTE | 2018-01-08 15:47 | P.PN ---
Subjective Progress Note Date: 01/08/18 57 years old gentleman patient of Dr. Ch and Dr. Paiz presents with past medical history of coronary artery disease with previous placement of stent in 2013 and coronary artery bypass in August this year with JACKSON to LAD, reverse saphenous vein graft from the aorta to the diagonal artery, reverse saphenous vein graft from aorta to the posterior descending artery, history of hypertension hyperlipidemia, COPD, former tobacco abuse presents with history of shortness of breath that was worsening for the past 2 weeks with swelling in the lower extremity for a month. According to patient he was unable to lay flat in his bed due to the shortness of breath. He also is complains of extreme tiredness checked for sleep apnea. He was prescribed CPAP which is one unable to tolerate due to sinus issues. Vitals were obtained in the ER with concern of hypoxia patient is continues to require 3-4 L of oxygen and saturating at 95-96%. There was a concern for COPD exacerbation and CHF exacerbation. Labs were obtained with suggested of a d-dimer of 0.78 followed by a CTA which suggested no pulmonary embolism but signs of emphysema and pulmonary fibrosis. BMP suggestive of increased AST and ALT stop troponin was elevated 0.067 down trended to 0.054 UA was without any sign of infection. BNP was elevated to 6880. Patient was initiated on Lasix 40 IV twice a day for diuresis. Patient is feeling better since yesterday as per the shortness of breath is concerned. He denies any chest pain or palpitations, cough, phlegm production, recent smoke inhalation. 01/06 Patient examined bedside. Feels shortness of breath is improved since yesterday. Patient is known to buy street drugs in for his pain as is unable to provide the pain medication he is asking for for his bulging disc. Patient does not want to have the AICD placed for his ischemic cardiomyopathy but is willing to continue taking his medications for his heart to help recover the ejection fraction. Patient is currently not taking medication consistently. community health worker will be consulted for assistance in medication. He would need a pain specialist referral on discharge 01/07: Echocardiogram reveals EF of 20-25%, LA severely dilated greater than 40, mild aortic valve sclerosis, moderate mitral regurgitation, mild tricuspid regurgitation, moderate pulmonary hypertension. Chest x-ray shows improvement in volume status. Patient is followed by cardiology and Entresto to be started today. Patient to remain on IV Lasix one more day. We have added in consult with pain management. Patient is noted to have some shortness of breath with walking to the bathroom and back to his bed. He denies any shortness of breath. He is currently on a nicotine patch. 01/08: Patient has been seen by Dr. Aguilar from pain management. Patient can be seen as an outpatient and I will order an MRI of the lumbar spine. Patient will require cardiology approval to hold Plavix if he needs any interventional pain management. No medication changes were made. During the night patient has significant pain and one dose of tramadol was given with improvement. Patient continues to have significant shortness of breath with ambulating in his room. Cardiology has changed Lasix over to oral. Patient does state that his breathing is better for him. Plan for discharge tomorrow. Objective - Vital Signs Vital signs: Vital Signs Temp 97.0 F L 01/08/18 08:00 Pulse 81 01/08/18 11:54 Resp 20 01/08/18 11:54 BP 92/62 01/08/18 08:00 Pulse Ox 93 L 01/08/18 08:00 Intake & Output 01/07/18 01/08/18 01/08/18 18:59 06:59 18:59 Intake Total 580 200 Output Total 450 1350 520 Balance 130 -1150 -520 Weight 84.5 kg Intake: Oral 580 200 Output: Urine 450 1350 520 Other: Voiding Method Urinal Urinal - Exam - Constitutional General appearance: cooperative, no acute distress, obese - EENT Eyes: anicteric sclerae, PERRLA, normal appearance ENT: hearing grossly normal - Neck Neck: no lymphadenopathy, normal ROM, no other, no rigidity, no stridor, no thyromegaly - Respiratory Respiratory: bilateral: Decreased air entry bilaterally, crackles at the bases, wheezing bilaterally more in the posterior lungs. - Cardiovascular Rhythm: regular Heart sounds: normal: S1, S2 Abnormal Heart Sounds: no systolic murmur, no diastolic murmur, no rub, no S3 Gallop, no S4 Gallop, no click, 1+ pitting edema lower extremities. - Gastrointestinal General gastrointestinal: normal bowel sounds, soft - Integumentary Integumentary: no rash - Neurologic Neurologic: CNII-XII intact - Musculoskeletal Musculoskeletal: gait normal, strength equal bilaterally - Psychiatric Psychiatric: A&O x's 3, appropriate affect - Labs CBC & Chem 7: 01/08/18 05:47 01/08/18 05:47 Labs: Abnormal Lab Results - Last 24 Hours (Table) 01/08/18 Range/Units 05:47 BUN 29 H (9-20) mg/dL Glucose 103 H (74-99) mg/dL Total Protein 6.1 L (6.3-8.2) g/dL Assessment and Plan Plan: #1 acute hypoxic respiratory failure secondary to acute on chronic systolic heart failure acute with ejection fraction 20-25%. Continue patient on aspirin 81 mg, metoprolol, losartan continue Lipitor. Patient is a candidate for AICD placement and is in discussion with Dr. Ch in the clinic outpatient. Continue Lasix 40 oral twice a day. #2 history of coronary artery disease with previous stenting in 2013 followed by coronary artery bypass in August 2017 stop continue aspirin 81, metoprolol, losartan and Lipitor #3 hypertension continue metoprolol, losartan #4 hyperlipidemia continue Lipitor #5 COPD. Wheezing on examination but no signs of acute COPD exacerbation. Likely secondary to fluid overload. #6 acute transaminitis. Likely secondary to congestion. Repeat LFTs tomorrow. CODE STATUS full code #8 DVT prophylaxis with heparin every 12 9. Chronic pain. Consult with pain management. Discharge plan: Home on Sunday Impression and plan of care have been directed as dictated by the signing physician. Isabelle Andersen nurse practitioner acting as scribe for signing physician.
[2018-01-08] MEDS: FUROSEMIDE 40 MG TAB PO SCH (18:20)
[2018-01-09] MEDS ORDERED: traMADol 50 MG TAB PO STA (01:40)
[2018-01-09] MEDS: ALPRAZolam 0.5 MG TAB PO SCH ×2 (01:55→12:58)
[2018-01-09] MEDS: HYDROcodone/APAP 7.5-325MG 1 EACH TAB PO PRN ×2 (05:31→11:18)
[2018-01-09] MEDS: ALBUTEROL NEBULIZED 2.5 MG/3 ML INHALATION SCH ×3 (07:55→15:46)
[2018-01-09] MEDS: SYMBICORT 160-4.5 MCG INHALER INHALATION SCH (07:55)
[2018-01-09 09:08] VITALS: RESP 18
[2018-01-09] MEDS: CLOPIDOGREL 75 MG TAB PO SCH (09:13)
[2018-01-09] MEDS: METOPROLOL TARTRATE 50 MG TAB PO SCH (09:13)
[2018-01-09] MEDS: ASPIRIN 81 MG PO SCH (09:13)
[2018-01-09] MEDS: NICOTINE 21MG/24HR PATCH TRANSDERM SCH (09:13)
[2018-01-09] MEDS: ATORVASTATIN 40 MG TAB PO SCH (09:13)
[2018-01-09] MEDS: SACUBITRIL/VALSARTAN 24 MG-26 MG TABLET PO SCH (09:13)
[2018-01-09] MEDS: FUROSEMIDE 40 MG TAB PO SCH (09:13)
[2018-01-09] MEDS ORDERED: SPIRONOLACTONE 25 MG TAB PO SCH (11:45)
[2018-01-09 13:00] VITALS: BP 109/73; TEMP 97
--- NOTE | 2018-01-09 14:48 | P.PN ---
Subjective Progress Note Date: 01/09/18 This is a pleasant 57-year-old gentleman who follows regularly with Dr. Ch in the office. He has known history of coronary artery disease with prior stent placement of the circumflex in 2013, most recently in August of this year the patient underwent coronary artery bypass grafting surgery where he underwent a JACKSON to the LAD, reverse saphenous vein graft from the aorta to the diagonal artery, reverse saphenous vein graft from the aorta to the posterior descending artery, history also of hypertension, hyperlipidemia, emphysema, nicotine dependence. He presents to the hospital on this occasion with symptoms of progressively worsening shortness of breath over approximately 2 week duration. Patient also states he's been noticing edema in his extremities and he's been having to sleep in his lazy boy chair because he is unable to lie flat. He denies any recent angina. Chest x-ray shows congestive heart failure which is new as compared with prior exam. CTA of the chest does not reveal any evidence of a pulmonary embolism. Pulmonary emphysema and pulmonary fibrosis. Moderate cardiomegaly. Increased right bronchial adenopathy compared with prior exam which is likely related to inflammatory process. EKG shows a normal sinus rhythm with nonspecific ST-T wave changes in the lateral leads. Blood pressure 140/90 with a heart rate in the 80s, afebrile. White blood cell count 7.2, hemoglobin 13, platelet count 269. D-dimer 0.7. Sodium 140, potassium 4.9 , BUN 20, creatinine 0.8. AST 65, ALT 94. Troponin 0.067, 0.054. BNP level 6880. Patient was initiated on IV Lasix in the emergency room, he has been diuresing well through the night last night. At the time of my examination this morning, patient states his breathing is improving however he is still quite short of breath. 01/07/2018 Patient seen and examined this morning, continues to be quite short of breath. He has been diuresing through the night. Chest x-ray revealed improvement in volume status post total showed congestive heart failure. We will continue current dose of IV Lasix. We will also initiate Entresto. today. 01/08/2018 Patient seen and examined this morning, breathing is improving overall. Again diuresed well through the night last night, weight is down 1 kg today. BUN 29, creatinine 0.8. Blood pressure in the low 90s systolic. We will discontinue the IV Lasix and put the patient on 40 mg by mouth twice a day. Continue to monitor for 24 hours. Patient has also been instructed to ambulate in the hallway without oxygen to assess his need for oxygen. 01/09/2018 Patient seen and examined this morning, breathing significantly improved overall. Patient did have a walk test done, his oxygenation remained stable while ambulating in the hallway. Patient's O2 saturations do seem to drop down to 88% when the patient is on room air and lying down flat in bed. For this reason we will have the patient evaluated to be discharged home on oxygen. Overall his breathing is improved today. Hemodynamically he is stable. Objective - Vital Signs Vital signs: Vital Signs Temp 97.0 F L 01/09/18 12:00 Pulse 76 01/09/18 12:02 Resp 18 01/09/18 12:00 BP 109/73 01/09/18 12:00 Pulse Ox 88 L 01/09/18 12:00 Intake & Output 01/08/18 01/09/18 01/09/18 18:59 06:59 18:59 Intake Total 630 480 Output Total 520 1720 Balance 110 -1720 480 Weight 85.4 kg Intake: Oral 630 480 Output: Urine 520 1720 Other: Voiding Method Urinal Urinal Urinal # Voids 1 1 - Exam PHYSICAL EXAMINATION: GENERAL: 57-year-old gentleman in no acute distress at the time of my examination HEENT: Head is atraumatic, normocephalic. Pupils equal, round. Sclera anicteric. Conjunctiva are clear. Mucous membranes of the mouth are moist. Neck is supple. There is elevated jugular venous pressure to the angle of the jaw. No carotid bruit is heard. HEART EXAMINATION: Heart S1, S2 normal. Systolic murmur suggestive of mitral insuff CHEST EXAMINATION: Lungs reveal improvement in air entry to bilateral bases. ABDOMEN: Mildly distended , nontender. Bowel sounds are heard. No organomegaly noted. EXTREMITIES: 2+ peripheral pulses with 1+ evidence of peripheral edema and no calf tenderness noted. NEUROLOGIC patient is awake, alert and orientedX3 . - Labs CBC & Chem 7: 01/08/18 05:47 01/08/18 05:47 Assessment and Plan Plan: Assessment and plan #1 systolic congestive heart failure acute on chronic. Most recent echocardiogram with Doppler study was performed in August of this year which revealed an ejection fraction of 20-25%. #2 known history of coronary artery disease with prior stent placement of the RCA and circumflex in 2013 subsequently patient underwent coronary artery bypass grafting surgery in August of this she #3 hypertension #4 hyperlipidemia #5 nicotine dependence #6 COPD #7 mildly abnormal liver functions, likely secondary to congestion. #8 ischemic cardiomyopathy, it has been discussed with the patient in the office by Dr. 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 Plan From cardiology's perspective, patient may be able to be discharged home, we'll make him a follow-up appointment in the office post discharge. Patient will be discharged home with home O2 to be used at bedtime. DNP note has been reviewed, I agree with a documented findings and plan of care. Patient was seen and examined.
--- NOTE | 2018-01-09 15:26 | P.DS ---
Providers Date of admission: 01/06/18 11:53 Expected date of discharge: 01/09/18 Attending physician: Violeta Varma MD Consults: 01/05/18 04:43 Consult Physician Routine Consulting Provider: Julio Stanford Consult Reason/Comments: CHF exacerbation Do you want consulting provider notified?: Yes 01/07/18 11:16 Consult Physician Routine Consulting Provider: Indra Aguilar Consult Reason/Comments: pain management Do you want consulting provider notified?: Yes Primary care physician: [facility] Course: 57 years old gentleman patient of Dr. Ch and Dr. Bautista presents with past medical history of coronary artery disease with previous placement of stent in 2013 and coronary artery bypass in August this year with JACKSON to LAD, reverse saphenous vein graft from the aorta to the diagonal artery, reverse saphenous vein graft from aorta to the posterior descending artery, history of hypertension hyperlipidemia, COPD, former tobacco abuse presents with history of shortness of breath that was worsening for the past 2 weeks with swelling in the lower extremity for a month. According to patient he was unable to lay flat in his bed due to the shortness of breath. He also is complains of extreme tiredness checked for sleep apnea. He was prescribed CPAP which is one unable to tolerate due to sinus issues. Vitals were obtained in the ER with concern of hypoxia patient is continues to require 3-4 L of oxygen and saturating at 95-96%. There was a concern for COPD exacerbation and CHF exacerbation. Labs were obtained with suggested of a d-dimer of 0.78 followed by a CTA which suggested no pulmonary embolism but signs of emphysema and pulmonary fibrosis. BMP suggestive of increased AST and ALT stop troponin was elevated 0.067 down trended to 0.054 UA was without any sign of infection. BNP was elevated to 6880. Patient was initiated on Lasix 40 IV twice a day for diuresis. Patient is feeling better since yesterday as per the shortness of breath is concerned. He denies any chest pain or palpitations, cough, phlegm production, recent smoke inhalation. 01/06 Patient examined bedside. Feels shortness of breath is improved since yesterday. Patient is known to buy street drugs in for his pain as is unable to provide the pain medication he is asking for for his bulging disc. Patient does not want to have the AICD placed for his ischemic cardiomyopathy but is willing to continue taking his medications for his heart to help recover the ejection fraction. Patient is currently not taking medication consistently. cafeteria worker will be consulted for assistance in medication. He would need a pain specialist referral on discharge 01/07: Echocardiogram reveals EF of 20-25%, LA severely dilated greater than 40, mild aortic valve sclerosis, moderate mitral regurgitation, mild tricuspid regurgitation, moderate pulmonary hypertension. Chest x-ray shows improvement in volume status. Patient is followed by cardiology and Entresto to be started today. Patient to remain on IV Lasix one more day. We have added in consult with pain management. Patient is noted to have some shortness of breath with walking to the bathroom and back to his bed. He denies any shortness of breath. He is currently on a nicotine patch. 01/08: Patient has been seen by Dr. Aguilar from pain management. Patient can be seen as an outpatient and I will order an MRI of the lumbar spine. Patient will require cardiology approval to hold Plavix if he needs any interventional pain management. No medication changes were made. During the night patient has significant pain and one dose of tramadol was given with improvement. Patient continues to have significant shortness of breath with ambulating in his room. Cardiology has changed Lasix over to oral. Patient does state that his breathing is better for him. Plan for discharge tomorrow. 01/09: Patient has been cleared by cardiology for discharge home today. Patient was noted to have a drop in his pulse ox 88% on room air and home O2 will be arranged by major case detective. Patient does have shortness of breath with minimal activity but is improved from admission. He is afebrile. Vital signs are otherwise stable. Patient will be discharged home today in stable condition. Discharge diagnoses: 1 acute hypoxic respiratory failure secondary to acute on chronic systolic heart failure acute with ejection fraction 20-25%. 2 history of coronary artery disease with previous stenting in 2013 followed by coronary artery bypass in August 2017 3 hypertension 4 hyperlipidemia 5 COPD. no signs of acute COPD exacerbation. 6 acute transaminitis. Likely secondary to congestion. 7 Chronic pain. 8 chronic hypoxic respiratory failure requiring home oxygen. Discharge plan: Home on Sunday Impression and plan of care have been directed as dictated by the signing physician. Isabelle Andersen nurse practitioner acting as scribe for signing physician. Patient Condition at Discharge: Good Plan - Discharge Summary Discharge Rx Participant: Yes New Discharge Prescriptions: New Aspirin 81 mg PO DAILY chew Furosemide [Lasix] 40 mg PO BID@0900,1600 #60 tab Nicotine 21Mg/24Hr Patch [Habitrol] 1 patch TRANSDERM DAILY #30 patch Sacubitril/Valsartan [Entresto 24 mg-26 mg Tablet] 1 each PO BID #60 tablet Spironolactone [Aldactone] 25 mg PO DAILY #30 tab Continue Clopidogrel [Plavix] 75 mg PO DAILY #30 tab Atorvastatin [Lipitor] 40 mg PO DAILY #30 tab Metoprolol Tartrate [Lopressor] 50 mg PO BID #60 tab Albuterol Sulfate [Proventil Hfa] 1 - 2 puff INHALATION RT-Q6H PRN #1 hfa.aer.ad PRN Reason: Shortness Of Breath Hydrocodone/Acetaminophen [Spruce 5-325] 1 tab PO Q6HR PRN #20 tab PRN Reason: Pain Oxymetazoline 0.05% Nasl [place] [Afrin 0.05% Nasal [place]] 2 spray EA NOSTRIL BID PRN PRN Reason: Nasal Congestion Budesonide [Pulmicort] 0.5 mg INHALATION RT-BID Nitroglycerin Sl Tabs [Nitrostat] 0.4 mg SUBLINGUAL Q5M PRN PRN Reason: Chest Pain Albuterol Nebulized [Ventolin Nebulized] 2.5 mg PO RT-QID PRN PRN Reason: Shortness Of Breath Discontinued Aspirin 325 mg PO DAILY tab Losartan Potassium [Cozaar] 50 mg PO DAILY Discharge Medication List Albuterol Sulfate [Proventil Hfa] 1 - 2 puff INHALATION RT-Q6H PRN #1 hfa.aer.ad 08/31/16 [Rx] Atorvastatin [Lipitor] 40 mg PO DAILY #30 tab 08/31/16 [Rx] Clopidogrel [Plavix] 75 mg PO DAILY #30 tab 08/31/16 [Rx] Metoprolol Tartrate [Lopressor] 50 mg PO BID #60 tab 08/31/16 [Rx] Hydrocodone/Acetaminophen [Spruce 5-325] 1 tab PO Q6HR PRN #20 tab 09/02/17 [Rx] Oxymetazoline 0.05% Nasl [place] [Afrin 0.05% Nasal [place]] 2 spray EA NOSTRIL BID PRN 09/02/17 [History] Albuterol Nebulized [Ventolin Nebulized] 2.5 mg PO RT-QID PRN 01/07/18 [History] Budesonide [Pulmicort] 0.5 mg INHALATION RT-BID 01/07/18 [History] Nitroglycerin Sl Tabs [Nitrostat] 0.4 mg SUBLINGUAL Q5M PRN 01/07/18 [History] Aspirin 81 mg PO DAILY chew 01/09/18 [Rx] Furosemide [Lasix] 40 mg PO BID@0900,1600 #60 tab 01/09/18 [Rx] Nicotine 21Mg/24Hr Patch [Habitrol] 1 patch TRANSDERM DAILY #30 patch 01/09/18 [ Rx] Sacubitril/Valsartan [Entresto 24 mg-26 mg Tablet] 1 each PO BID #60 tablet 01/19 [Rx] Spironolactone [Aldactone] 25 mg PO DAILY #30 tab 01/09/18 [Rx] Follow up Appointment(s)/Referral(s): Elsy Ch MD [STAFF PHYSICIAN] - 01/21/18 4:00 pm Jame Bautista MD [Primary Care Provider] - 01/15/18 9:00 am (Sunday) Patient Instructions/Handouts: Heart Failure (DC), Heart Healthy Diet (DC)
[2018-01-09 15:58] VITALS: PULSE 78
== END 2018-01-09 16:57 | disposition home or self-care (01) | DRG 291 ==
LOC: EC 02:01 → 6SEL 04:46 → OBSVTOIN 01-06 11:53
PROVIDERS: ADMIT Internal Medicine; ATTEND Internal Medicine
DX: I11.0 Hypertensive heart disease with heart failure (principal); J96.21 Acute and chronic respiratory failure with hypoxia; I50.23 Acute on chronic systolic (congestive) heart failure; I27.20 Pulmonary hypertension, unspecified; J84.10 Pulmonary fibrosis, unspecified; J43.9 Emphysema, unspecified; I08.3 Combined rheumatic disorders of mitral, aortic and tricuspid valves; E78.5 Hyperlipidemia, unspecified; I25.10 Atherosclerotic heart disease of native coronary artery without angina pectoris; I25.5 Ischemic cardiomyopathy; M47.816 Spondylosis without myelopathy or radiculopathy, lumbar region; M51.36 Other intervertebral disc degeneration, lumbar region; G89.29 Other chronic pain; R74.0 Nonspecific elevation of levels of transaminase and lactic acid dehydrogenase [LDH]; R77.9 Abnormality of plasma protein, unspecified; I25.2 Old myocardial infarction; Z79.82 Long term (current) use of aspirin; Z79.51 Long term (current) use of inhaled steroids; Z79.02 Long term (current) use of antithrombotics/antiplatelets; Z79.899 Other long term (current) drug therapy; Z86.14 Personal history of Methicillin resistant Staphylococcus aureus infection; Z95.5 Presence of coronary angioplasty implant and graft; Z95.1 Presence of aortocoronary bypass graft; Z87.891 Personal history of nicotine dependence; Z80.0 Family history of malignant neoplasm of digestive organs; Z80.6 Family history of leukemia
CPT/HCPCS: 36415; 71045; 71046; 71275; 80053; 81001; 82550; 82553; 83735; 83880; 84484; 85025; 85379; 85610; 85730; 93005; 93306; 94640; 94760; 99285

== ENCOUNTER 2018-09-20 10:30 | Inpatient (IN) | payer OTHER ==
[2018-09-20] MEDS ORDERED: IPRATROPIUM-ALBUTEROL 3 ML NEB INHALATION STA (11:09)
--- NOTE | 2018-09-20 11:14 | ED ---
General Adult HPI - General Chief complaint: Shortness of Breath Stated complaint: SOB, fatigue Time Seen by Provider: 09/20/18 10:40 Source: patient, RN notes reviewed Mode of arrival: ambulatory Limitations: no limitations - History of Present Illness Initial comments: Patient is a pleasant 57-year-old male presenting to the emergency Department with complaints of shortness of breath. Symptoms of been present for a couple of days, worse this morning. Patient does have history of COPD and is on chronic oxygen. Patient did have an episode of CHF once and questions if that could be a factor. No leg pain or leg swelling. No fever. Occasional cough. - Related Data Home Medications Medication Instructions Recorded Confirmed Furosemide [Lasix] 40 mg PO DAILY 09/20/18 09/20/18 Losartan [Cozaar] 50 mg PO DAILY 09/20/18 09/20/18 Previous Rx's Medication Instructions Recorded Atorvastatin [Lipitor] 40 mg PO DAILY #30 tab 08/31/16 Metoprolol Tartrate [Lopressor] 50 mg PO BID #60 tab 08/31/16 Aspirin 81 mg PO DAILY chew 01/09/18 Spironolactone [Aldactone] 25 mg PO DAILY #30 tab 01/09/18 Allergies Allergy/AdvReac Type Severity Reaction Status Date / Time No Known Allergies Allergy Verified 09/20/18 11:13 Review of Systems ROS Statement: Those systems with pertinent positive or pertinent negative responses have been documented in the HPI. ROS Other: All systems not noted in ROS Statement are negative. Constitutional: Denies: fever Eyes: Denies: eye pain ENT: Denies: ear pain Respiratory: Reports: as per HPI, dyspnea Cardiovascular: Denies: chest pain, palpitations Endocrine: Reports: fatigue Gastrointestinal: Denies: abdominal pain Genitourinary: Denies: dysuria Musculoskeletal: Denies: back pain Skin: Denies: rash Neurological: Denies: confusion Past Medical History Past Medical History: Coronary Artery Disease (CAD), COPD, Hyperlipidemia, Hypertension, Myocardial Infarction ([place]) Additional Past Medical History / Comment(s): Emphesema Last Myocardial Infarction Date:: 2012 History of Any Multi-Drug Resistant Organisms: MRSA Date of last positivie culture/infection: 02/08/09 MDRO Source:: Leg Past Surgical History: Coronary Bypass/CABG, Heart Catheterization With Stent Additional Past Surgical History / Comment(s): CABG 2017 3 vessel Past Anesthesia/Blood Transfusion Reactions: No Reported Reaction Date of Last Stent Placement:: 2012 Past Psychological History: No Psychological Hx Reported Smoking Status: Former smoker Past Alcohol Use History: None Reported Past Drug Use History: None Reported - Past Family History Father Family Medical History: Cancer Additional Family Medical History / Comment(s): Pancreatic CA Mother Family Medical History: Cancer Additional Family Medical History / Comment(s): Leukemia General Exam Limitations: no limitations General appearance: alert, in no apparent distress Head exam: Present: atraumatic Eye exam: Present: normal appearance Neck exam: Present: normal inspection Respiratory exam: Present: decreased breath sounds Cardiovascular Exam: Present: bradycardia Expanded Peripheral pulses: 2+: Radial (R), Radial (L), Dorsalis Pedis (R), Dorsalis Pedis (L) GI/Abdominal exam: Present: soft. Absent: tenderness Extremities exam: Present: normal inspection. Absent: pedal edema, calf tenderness Back exam: Present: normal inspection Neurological exam: Present: alert Psychiatric exam: Present: normal affect, normal mood Skin exam: Present: normal color Course Vital Signs 09/20/18 09/20/18 09/20/18 10:33 10:44 11:30 Temperature 97.9 F Pulse Rate 56 L 44 L 51 L Respiratory 24 14 15 Rate Blood Pressure 113/67 105/68 O2 Sat by Pulse 98 96 99 Oximetry 09/20/18 09/20/18 09/20/18 11:36 11:42 12:00 Temperature Pulse Rate 55 L 58 L 50 L Respiratory 16 Rate Blood Pressure 105/68 O2 Sat by Pulse 97 Oximetry EKG Findings - EKG Comments: EKG Findings:: Sinus bradycardia 55. OR 166. QRS 144. QT 542. QTC 518. Left axis. Left bundle branch block. T-wave inversion laterally. Medical Decision Making - Medical Decision Making Patient reevaluated with mild improvement. Patient updated on results and plan. Case was discussed in detail with Dr. Combs, who will admit covering for Dr. Bautista. He does request consult with Dr. Cantu. - Lab Data Result diagrams: 09/20/18 10:55 09/20/18 10:55 Lab Results 09/20/18 09/20/18 09/20/18 Range/Units 10:55 10:55 10:55 WBC 8.6 (3.8-10.6) k/uL RBC 4.67 (4.30-5.90) m/uL Hgb 13.7 (13.0-17.5) gm/dL Hct 44.0 (39.0-53.0) % MCV 94.3 (80.0-100.0) fL MCH 29.4 (25.0-35.0) pg MCHC 31.1 (31.0-37.0) g/dL RDW 13.7 (11.5-15.5) % Plt Count 274 (150-450) k/uL Neutrophils % 75 % Lymphocytes % 16 % Monocytes % 4 % Eosinophils % 2 % Basophils % 1 % Neutrophils # 6.4 (1.3-7.7) k/uL Lymphocytes # 1.3 (1.0-4.8) k/uL Monocytes # 0.4 (0-1.0) k/uL Eosinophils # 0.2 (0-0.7) k/uL Basophils # 0.1 (0-0.2) k/uL PT (9.0-12.0) sec INR (<1.2) APTT (22.0-30.0) sec Sodium 139 (137-145) mmol/L Potassium 4.8 (3.5-5.1) mmol/L Chloride 99 (98-107) mmol/L Carbon Dioxide 33 H (22-30) mmol/L Anion Gap 7 mmol/L BUN 33 H (9-20) mg/dL Creatinine 1.31 H (0.66-1.25) mg/dL Est GFR (CKD-EPI)AfAm 69 (>60 ml/min/1.73 sqM) Est GFR (CKD-EPI)NonAf 59 (>60 ml/min/1.73 sqM) Glucose 119 H (74-99) mg/dL Calcium 9.8 (8.4-10.2) mg/dL Total Bilirubin 0.8 (0.2-1.3) mg/dL AST 32 (17-59) U/L ALT 37 (21-72) U/L Alkaline Phosphatase 89 (38-126) U/L Creatine Kinase 113 (55-170) U/L Troponin I (0.000-0.034) ng/mL NT-Pro-B Natriuret Pep 3930 pg/mL Total Protein 7.4 (6.3-8.2) g/dL Albumin 4.6 (3.5-5.0) g/dL 09/20/18 09/20/18 Range/Units 10:55 10:55 WBC (3.8-10.6) k/uL RBC (4.30-5.90) m/uL Hgb (13.0-17.5) gm/dL Hct (39.0-53.0) % MCV (80.0-100.0) fL MCH (25.0-35.0) pg MCHC (31.0-37.0) g/dL RDW (11.5-15.5) % Plt Count (150-450) k/uL Neutrophils % % Lymphocytes % % Monocytes % % Eosinophils % % Basophils % % Neutrophils # (1.3-7.7) k/uL Lymphocytes # (1.0-4.8) k/uL Monocytes # (0-1.0) k/uL Eosinophils # (0-0.7) k/uL Basophils # (0-0.2) k/uL PT 11.4 (9.0-12.0) sec INR 1.1 (<1.2) APTT 23.6 (22.0-30.0) sec Sodium (137-145) mmol/L Potassium (3.5-5.1) mmol/L Chloride (98-107) mmol/L Carbon Dioxide (22-30) mmol/L Anion Gap mmol/L BUN (9-20) mg/dL Creatinine (0.66-1.25) mg/dL Est GFR (CKD-EPI)AfAm (>60 ml/min/1.73 sqM) Est GFR (CKD-EPI)NonAf (>60 ml/min/1.73 sqM) Glucose (74-99) mg/dL Calcium (8.4-10.2) mg/dL Total Bilirubin (0.2-1.3) mg/dL AST (17-59) U/L ALT (21-72) U/L Alkaline Phosphatase (38-126) U/L Creatine Kinase (55-170) U/L Troponin I 0.036 H* (0.000-0.034) ng/mL NT-Pro-B Natriuret Pep pg/mL Total Protein (6.3-8.2) g/dL Albumin (3.5-5.0) g/dL - Radiology Data Radiology results: image reviewed (Chest x-ray shows no acute findings. Questionable nodule. Underlying findings of cardiomegaly and COPD.) Disposition Clinical Impression: COPD (chronic obstructive pulmonary disease), Congestive heart failure Disposition: ADMITTED IP TO THIS HOSP Is patient prescribed a controlled substance at d/c from ED?: No Referrals: Jame Bautista MD [Primary Care Provider] - 1-2 days Decision Time: 12:42
[2018-09-20 11:26] LABS: Basophils # (A) 0.1 k/uL (0-0.2); Basophils % (A) 1 %; Eosinophils # (A) 0.2 k/uL (0-0.7); Eosinophils % (A) 2 %; HGB 13.7 gm/dL (13.0-17.5); Lymphocytes # (A) 1.3 k/uL (1.0-4.8); Lymphocytes % (A) 16 %; MCH 29.4 pg (25.0-35.0); MCHC 31.1 g/dL (31.0-37.0); MCV 94.3 fL (80.0-100.0); Mean Platelet Volume 7.5; Monocytes # (A) 0.4 k/uL (0-1.0); Monocytes % (A) 4 %; Neutrophils # (A) 6.4 k/uL (1.3-7.7); Neutrophils % (A) 75 %; Platelet Count 274 k/uL (150-450); RBC 4.67 m/uL (4.30-5.90); RDW 13.7 % (11.5-15.5); WBC 8.6 k/uL (3.8-10.6)
[2018-09-20 11:35] LABS: INR 1.1 (<1.2); Partial Thromboplastin Time 23.6 sec (22.0-30.0); Prothrombin Time 11.4 sec (9.0-12.0)
[2018-09-20 11:39] LABS: Albumin 4.6 g/dL (3.5-5.0); Calcium 9.8 mg/dL (8.4-10.2); Potassium 4.8 mmol/L (3.5-5.1); Total Bilirubin 0.8 mg/dL (0.2-1.3); Total Protein 7.4 g/dL (6.3-8.2)
--- NOTE | 2018-09-20 12:03 | XR ---
EXAMINATION TYPE: XR chest 2V DATE OF EXAM: 09/20/2018 COMPARISON: 01/07/2018 HISTORY: Dyspnea TECHNIQUE: Frontal and lateral views of the chest are obtained. FINDINGS: There are low lung volumes. Accentuation of the pulmonary vascular is seen secondary to be small lung volumes. Very questionable rounded density in the right lower lung could relate to pulmon xi nodule. Minimal left basilar subsegmental atelectasis is present. Right hemidiaphragm elevation i s chronic. Cardia mediastinal silhouette is enlarged with postoperative changes from prior CABG. Incr eased anterior posterior diameter of the chest and retrosternal airspace suggests underlying COPD. No acute osseous abnormality. IMPRESSION: 1. No acute cardiopulmonary process. 2. Minimal left basilar subsegmental atelectasis, cardiomegaly, and findings of underlying COPD. 3. Very questionable possible nodular density in the right lower lung. Nonemergent CT could assess fo r pulmonary nodule.
[2018-09-20] MEDS ORDERED: ASPIRIN 325 MG TAB PO STA (12:43)
[2018-09-20] MEDS ORDERED: methylPREDNISolone SOD SUCCI 125 MG/2 ML VIAL IV STA (12:43)
[2018-09-20] MEDS ORDERED: IPRATROPIUM-ALBUTEROL 3 ML NEB INHALATION PRN (12:43)
[2018-09-20] MEDS ORDERED: NICOTINE 21MG/24HR PATCH TRANSDERM STA (12:52)
[2018-09-20] MEDS: FUROSEMIDE 10 MG/ML 4 ML VIAL IV SCH ×2 (13:02→19:57)
[2018-09-20] MEDS: IPRATROPIUM-ALBUTEROL 3 ML NEB INHALATION SCH ×2 (15:18→18:49)
[2018-09-20] MEDS: methylPREDNISolone SOD SUCCI 125 MG/2 ML VIAL IV SCH ×2 (16:53→22:38)
[2018-09-21] MEDS: methylPREDNISolone SOD SUCCI 125 MG/2 ML VIAL IV SCH ×3 (05:51→17:17)
[2018-09-21] MEDS: IPRATROPIUM-ALBUTEROL 3 ML NEB INHALATION SCH ×4 (07:28→19:53)
[2018-09-21] MEDS: ASPIRIN 325 MG TAB PO SCH (08:11)
[2018-09-21] MEDS: FUROSEMIDE 10 MG/ML 4 ML VIAL IV SCH ×2 (08:11→21:25)
[2018-09-21] MEDS ORDERED: ASPIRIN 81 MG PO SCH (09:00)
--- NOTE | 2018-09-21 09:43 | P.HPIM ---
History of Present Illness H&P Date: 09/21/18 Chief Complaint: Shortness of breath, fatigue This is a pleasant 57-year-old male who presented to the emergency department with complaints of shortness of breath. Patient stated that the symptoms occurred while he was on his way home from the methadone clinic after receiving his daily dose of methadone of 100 mg. During the ride home the patient experienced shortness of breath where he felt like he was unable to catch his breath and unable to talk during that time. States that he had an increase to his methadone within the last week. Patient has been utilizing methadone for pain control for approximately the last 2 months. He states that the symptoms have been present for a couple days however they're worse at night and worsened during the drive home. Patient has history of COPD he is on chronic oxygen at home at 5 L which he normally wears only at night. Patient states that he only requires oxygen when he is sitting and not doing anything and does not utilize it with activity. Approximately 6 months ago patient experienced similar symptoms and also had a desperation of congestive heart failure where he was found to have an EF of 20-25% at that time. he was advised at that time to have a defibrillator placed, however due to his uncontrolled pain he declined. Patient states that now that his pain is under control he is acceptable for reevaluation for a defibrillator. At this time patient is resting comfortably in bed with O2 at 5 L via nasal cannula. Patient states that the shortness of breath has improved. He is not having any chest pain, leg pain or leg swelling. Patient denies any fever or chills at this time. Patient does have an occasional cough that is nonproductive. Review of Systems Review Of Systems: Constitutional: No fever, no chills, no night sweats. No weight change. No weakness, fatigue or lethargy. No daytime sleepiness. EENT: No headache. No blurred vision or double vision, no loss of vision. No loss of Hearing, no ringing in the ears, no dizziness. No nasal drainage or congestion. No epistaxis. No sore throat. Lungs: Reports shortness of breath, reports cough, no sputum production. No wheezing. Cardiovascular: No chest pain, no lower extremity edema. No palpitations. No paroxysmal nocturnal dyspnea. No orthopnea. No lightheadedness or dizziness. No syncopal episodes. Abdominal: no abdominal discomfort. No nausea, vomiting. no diarrhea. No constipation. No bloody or tarry stools. improved loss of appetite. Genitourinary: No dysuria, increased frequency, urgency. No urinary retention. Musculoskeletal: No myalgias. No muscle weakness, no gait dysfunction, no frequent falls. Reports back pain. No neck pain. Integumentary: No wounds, no lesions. No rash or pruritus. No unusual bruising. No change in hair or nails. Neurologic: No aphasia. No facial droop. No change in mentation. No head injury. No headache. No paralysis. No paresthesia. Psychiatric: No depression. No anxiety. No mood swings. Endocrine: No abnormal blood sugars. No weight change. No excessive sweating or thirst. Past Medical History Past Medical History: Coronary Artery Disease (CAD), Heart Failure, COPD, Hyperlipidemia, Hypertension, Myocardial Infarction ([place]), Respiratory Disorder Additional Past Medical History / Comment(s): Home oxygen which pt states he wears a 5L/NC at HS usually but more often than that lately, seasonal allergies, chronic low back pain Last Myocardial Infarction Date:: 2013 History of Any Multi-Drug Resistant Organisms: MRSA Date of last positivie culture/infection: 02/08/09 MDRO Source:: Leg Past Surgical History: Coronary Bypass/CABG, Heart Catheterization With Stent Additional Past Surgical History / Comment(s): CABG 2018- 3 vessel Past Anesthesia/Blood Transfusion Reactions: No Reported Reaction Additional Past Anesthesia/Blood Transfusion Reaction / Comment(s): Difficulty in breathing Date of Last Stent Placement:: 2013 Smoking Status: Former smoker - Past Family History Father Family Medical History: Cancer Additional Family Medical History / Comment(s): Pancreatic CA Mother Family Medical History: Cancer Additional Family Medical History / Comment(s): Leukemia Medications and Allergies Home Medications Medication Instructions Recorded Confirmed Type Atorvastatin [Lipitor] 40 mg PO DAILY #30 tab 08/31/16 09/20/18 Rx Metoprolol Tartrate [Lopressor] 50 mg PO BID #60 tab 08/31/16 09/20/18 Rx Aspirin 81 mg PO DAILY chew 01/09/18 09/20/18 Rx Spironolactone [Aldactone] 25 mg PO DAILY #30 tab 01/09/18 09/20/18 Rx Furosemide [Lasix] 40 mg PO DAILY 09/20/18 09/20/18 History Losartan [Cozaar] 50 mg PO DAILY 09/20/18 09/20/18 History Allergies Allergy/AdvReac Type Severity Reaction Status Date / Time No Known Allergies Allergy Verified 09/20/18 11:13 Physical Exam Vitals: Vital Signs Temp Pulse Pulse Resp BP BP Pulse Ox 09/21/18 08:00 98.3 F 50 L 18 174/56 96 09/21/18 07:39 64 09/21/18 07:28 56 L 09/21/18 03:46 98.3 F 60 18 98/61 94 L 09/20/18 23:06 98.1 F 65 18 107/67 93 L 09/20/18 20:00 97.9 F 73 18 114/72 93 L 09/20/18 19:08 65 09/20/18 18:50 62 09/20/18 15:27 62 09/20/18 15:20 60 09/20/18 15:00 97.8 F 63 18 100/72 97 09/20/18 14:39 98.7 F 09/20/18 14:00 57 L 15 114/76 96 09/20/18 13:07 99 09/20/18 13:00 48 L 14 101/67 09/20/18 12:00 50 L 16 105/68 97 09/20/18 11:42 58 L 09/20/18 11:36 55 L 09/20/18 11:30 51 L 15 105/68 99 09/20/18 10:44 44 L 14 96 09/20/18 10:33 97.9 F 56 L 24 113/67 98 Intake and Output 09/20/18 09/21/18 09/21/18 22:59 06:59 14:59 Intake Total 702 360 Output Total 100 Balance 702 -100 360 Intake: Oral 702 360 Output: Urine 100 Other: # Voids 1 Weight 86 kg 86.8 kg General Appearance: Alert, cooperative, no distress, appears stated age. Neck HEENT: Supple, no lymphadenopathy, no thyroid enlargement, no carotid bruits. Lungs: Bilateral inspiratory wheezes, no crackles, no rhonchi, no deformity. Chest Wall: Chest wall normal expansion with deep inspiration no tenderness and no deformity was found on exam, no costochondral pain or discomfort. Heart: Regular rate and rhythm, S1, S2 normal, no murmur, rub or gallop. Back: Symmetric, no curvature, ROM normal, no CVA tenderness. Abdomen: Soft, non-tender, no rebound or rigidity, no hepatosplenomegaly. Extremities: Extremities normal, atraumatic, no cyanosis or edema. Pulses: 2+ and symmetric. Skin: Skin color, texture, tugor normal, no rashes or lesions. Neurologic: Alert oriented x3 cranial nerves II through XII intact, no motor deficit, no abnormal balance or gait Results CBC & Chem 7: 09/20/18 10:55 09/20/18 10:55 Labs: Abnormal Lab Results - Last 24 Hours (Table) 09/20/18 09/20/18 Range/Units 10:55 10:55 Carbon Dioxide 33 H (22-30) mmol/L BUN 33 H (9-20) mg/dL Creatinine 1.31 H (0.66-1.25) mg/dL Glucose 119 H (74-99) mg/dL Troponin I 0.036 H* (0.000-0.034) ng/mL Thrombosis Risk Factor Assmnt - Choose All That Apply Any of the Below Risk Factors Present?: Yes Each Factor Represents 1 point: Abnormal pulmonary function (COPD), Age 41-60 years, Heart failure (<1month), Obesity (BMI >25) Other Risk Factors: No Other congenital or acquired thrombophilia - If yes, enter type in comment: No Thrombosis Risk Factor Assessment Total Risk Factor Score: 4 Thrombosis Risk Factor Assessment Level: Moderate Risk Assessment and Plan Plan: 1. COPD with exacerbation: Continue DuoNeb, Solu-Medrol 60 mg IV every 6 hours. Pulmonary consult appreciated. Continue with O2 at 5 L via nasal cannula 2. Chronic diastolic Congestive heart failure, continue Lasix 40 mg IV daily consult cardiology, continue telemetry. 3. Acute kidney injury: Hold losartan, hold Aldactone. Repeat CMP in the a.m. daily CMP 4. Elevated troponin: Consult cardiology, continue telemetry. Magnesium level ordered 5. Chronic pain management: Decrease methadone from 100 mg to 95 mg daily 6. Coronary artery disease, continue aspirin 325 mg daily 7. Hypertension: Lopressor 50 mg by mouth twice a day 8. Hyperlipidemia: Continue atorvastatin 40 mg daily 9. History of MRSA, resolved last positive culture 02/10 in the leg 10. DVT prophylaxis: Pneumatic compression sleeves bilateral, ambulation 11. GI prophylaxis: Pepcid 20 mg daily Discharge plan: A minimum of 2 nights day, home with self-care Impression and plan of care have been directed as dictated by the signing physic ian. Gwen Sawant nurse practitioner acting as scribe for signing physician.
[2018-09-21] MEDS: METOPROLOL TARTRATE 50 MG TAB PO SCH ×2 (10:57→21:25)
[2018-09-21] MEDS: METHADONE 5 MG TAB PO SCH (10:57)
[2018-09-21] MEDS: METHADONE 10 MG TAB PO SCH (10:58)
[2018-09-21] MEDS: ATORVASTATIN 40 MG TAB PO SCH (10:58)
[2018-09-21 11:36] LABS: Glucose,Whole Blood 166 mg/dL (75-99)
--- NOTE | 2018-09-21 16:14 | P.CNPUL ---
History of Present Illness Consult date: 09/21/18 Reason for consult: dyspnea, COPD Chief complaint: Shortness of breath History of present illness: This is a 57-year-old gentleman who presented emergency department complaining of shortness of breath. He states this started about 2 days ago but yesterday got progressively worse. The patient states he felt like he was dying. He becomes tearful and states that he feels like he was really close to dying this weekend. He does have a history of COPD and wears 5 L nasal cannula at baseline. He uses his nebulizer 4 times a day. He is a former smoker and quit a few months ago. He used to smoke 1 pack per day for 40 years. He used to work in [employer] and denies any exposures. The patient denies fevers and chills. He denies cough. He states he feels like this is all his heart. He says his "heart is getting weak." He was told he needed a defibrillator in the past and states he didn't get it. He states he is ready to get his defibrillator and get his life in order. The patient is also asking for a nicotine patch. Review of Systems All systems: negative Past Medical History Past Medical History: Coronary Artery Disease (CAD), Heart Failure, COPD, Hyperlipidemia, Hypertension, Myocardial Infarction (AR), Respiratory Disorder Additional Past Medical History / Comment(s): Home oxygen which pt states he wears a 5L/NC at HS usually but more often than that lately, seasonal allergies, chronic low back pain Last Myocardial Infarction Date:: 2013 History of Any Multi-Drug Resistant Organisms: MRSA Date of last positivie culture/infection: 02/08/09 MDRO Source:: Leg Past Surgical History: Coronary Bypass/CABG, Heart Catheterization With Stent Additional Past Surgical History / Comment(s): CABG 2018- 3 vessel Past Anesthesia/Blood Transfusion Reactions: No Reported Reaction Additional Past Anesthesia/Blood Transfusion Reaction / Comment(s): Difficulty in breathing Date of Last Stent Placement:: 2013 Smoking Status: Former smoker - Past Family History Father Family Medical History: Cancer Additional Family Medical History / Comment(s): Pancreatic CA Mother Family Medical History: Cancer Additional Family Medical History / Comment(s): Leukemia Medications and Allergies Home Medications Medication Instructions Recorded Confirmed Type Atorvastatin [Lipitor] 40 mg PO DAILY #30 tab 08/31/16 09/20/18 Rx Metoprolol Tartrate [Lopressor] 50 mg PO BID #60 tab 08/31/16 09/20/18 Rx Aspirin 81 mg PO DAILY chew 01/09/18 09/20/18 Rx Spironolactone [Aldactone] 25 mg PO DAILY #30 tab 01/09/18 09/20/18 Rx Furosemide [Lasix] 40 mg PO DAILY 09/20/18 09/20/18 History Losartan [Cozaar] 50 mg PO DAILY 09/20/18 09/20/18 History Allergies Allergy/AdvReac Type Severity Reaction Status Date / Time No Known Allergies Allergy Verified 09/20/18 11:13 Physical Exam Osteopathic Statement: *. No significant issues noted on an osteopathic structural exam other than those noted in the History and Physical/Consult. Vitals: Vital Signs Temp Pulse Pulse Resp BP Pulse Ox 09/21/18 16:00 68 09/21/18 15:47 66 93 L 09/21/18 15:04 97.7 F 74 18 128/85 91 L 09/21/18 12:00 98.2 F 60 71 18 113/73 97 09/21/18 11:49 64 09/21/18 08:00 98.3 F 50 L 18 174/56 96 09/21/18 07:39 64 09/21/18 07:28 56 L 09/21/18 03:46 98.3 F 60 18 98/61 94 L 09/20/18 23:06 98.1 F 65 18 107/67 93 L 09/20/18 20:00 97.9 F 73 18 114/72 93 L 09/20/18 19:08 65 09/20/18 18:50 62 Intake and Output 09/21/18 09/21/18 09/21/18 06:59 14:59 22:59 Intake Total 582 Output Total 100 700 Balance -100 -118 Intake: Oral 582 Output: Urine 100 700 Other: # Voids 1 Weight 86.8 kg 86.8 kg Gen.: Patient is alert and oriented 3, no acute distress Cardiovascular: Regular rate and rhythm, S1/S2 Lungs: Diminished breath sounds bilaterally otherwise clear Abdomen: Soft nontender nondistended positive bowel sounds Extremities: No edema Results - Laboratory Findings CBC and BMP: 09/20/18 10:55 09/20/18 10:55 PT/INR, D-dimer PT 11.4 sec (9.0-12.0) 09/20/18 10:55 INR 1.1 (<1.2) 09/20/18 10:55 Abnormal lab findings: Abnormal Labs 09/20/18 09/20/18 09/21/18 10:55 10:55 11:32 Carbon Dioxide 33 H BUN 33 H Creatinine 1.31 H Glucose 119 H POC Glucose (mg/dL) 166 H Troponin I 0.036 H* - Diagnostic Findings Chest x-ray: report reviewed, image reviewed Assessment and Plan Assessment: Acute on chronic hypoxic respiratory failure Acute exacerbation of COPD Tracheobronchitis Acute exacerbation of systolic congestive heart failure, EF 20-25% Elevated troponin History of coronary artery disease and stenting Dyslipidemia Hypertension Acute kidney injury History of tobacco abuse O2 to maintain saturation greater than equal to 90% Pulmicort Duo nebs Singulair Doxycycline Solu-Medrol taper Cardiology recommendations Nicotine transdermal Continued smoking cessation is highly recommended Incentive spirometry and pulmonary hygiene Thank you for this consultation. Patient seen and examined covering for Dr. Gong
[2018-09-21 16:47] LABS: Glucose,Whole Blood 139 mg/dL (75-99)
[2018-09-21] MEDS: NICOTINE 21MG/24HR PATCH TRANSDERM SCH (17:17)
[2018-09-21 17:49] LABS: Magnesium 2.1 mg/dL (1.6-2.3); Potassium 4.6 mmol/L (3.5-5.1)
[2018-09-21] MEDS ORDERED: MAGNESIUM SULFATE-D5W PMX 1 GM in DEXTROSE/WATER 1 100ML.BAG IVPB ONE (18:00)
[2018-09-21] MEDS: BUDESONIDE 0.5 MG/2 ML NEBU INHALATION SCH (19:53)
[2018-09-21 21:05] LABS: Glucose,Whole Blood 162 mg/dL (75-99)
[2018-09-21] MEDS: DOXYCYCLINE 100 MG CAP PO SCH (21:24)
[2018-09-21] MEDS: MONTELUKAST 10 MG TAB PO SCH (21:25)
[2018-09-22] MEDS: methylPREDNISolone SOD SUCCI 125 MG/2 ML VIAL IV SCH ×5 (00:10→23:07)
[2018-09-22 06:03] LABS: Glucose,Whole Blood 158 mg/dL (75-99)
[2018-09-22 06:35] LABS: Basophils % (A) 0 %; Eosinophils % (A) 0 %; HCT 42.2 % (39.0-53.0); HGB 13.5 gm/dL (13.0-17.5); Lymphocytes # (A) 0.6 k/uL (1.0-4.8); Lymphocytes % (A) 4 %; MCH 30.8 pg (25.0-35.0); MCHC 31.9 g/dL (31.0-37.0); MCV 96.8 fL (80.0-100.0); Mean Platelet Volume 7.3; Monocytes # (A) 0.5 k/uL (0-1.0); Monocytes % (A) 3 %; Neutrophils # (A) 14.2 k/uL (1.3-7.7); Neutrophils % (A) 92 %; Platelet Count 229 k/uL (150-450); RBC 4.37 m/uL (4.30-5.90); RDW 13.1 % (11.5-15.5); WBC 15.5 k/uL (3.8-10.6)
[2018-09-22 06:55] LABS: ALT 28 U/L (21-72); AST 20 U/L (17-59); Albumin 4.2 g/dL (3.5-5.0); Alkaline Phosphatase 74 U/L (38-126); Anion Gap 8 mmol/L; Blood Urea Nitrogen 44 mg/dL (9-20); Calcium 9.5 mg/dL (8.4-10.2); Carbon Dioxide 32 mmol/L (22-30); Chloride 98 mmol/L (98-107); Glucose 158 mg/dL (74-99); Potassium 4.6 mmol/L (3.5-5.1); Sodium 138 mmol/L (137-145); Total Bilirubin 0.4 mg/dL (0.2-1.3); Total Protein 6.7 g/dL (6.3-8.2)
[2018-09-22] MEDS: BUDESONIDE 0.5 MG/2 ML NEBU INHALATION SCH ×2 (07:48→20:00)
[2018-09-22] MEDS: IPRATROPIUM-ALBUTEROL 3 ML NEB INHALATION SCH ×4 (07:48→20:00)
[2018-09-22] MEDS: METHADONE 10 MG TAB PO SCH (08:01)
[2018-09-22] MEDS: ATORVASTATIN 40 MG TAB PO SCH (08:01)
[2018-09-22] MEDS: METOPROLOL TARTRATE 50 MG TAB PO SCH ×2 (08:01→21:19)
[2018-09-22] MEDS: FUROSEMIDE 10 MG/ML 4 ML VIAL IV SCH (08:01)
[2018-09-22] MEDS: FAMOTIDINE 20 MG TAB PO SCH (08:01)
[2018-09-22] MEDS: NICOTINE 21MG/24HR PATCH TRANSDERM SCH ×2 (08:01→17:35)
[2018-09-22] MEDS: METHADONE 5 MG TAB PO SCH (08:01)
[2018-09-22] MEDS: DOXYCYCLINE 100 MG CAP PO SCH ×2 (08:01→21:19)
[2018-09-22] MEDS: ASPIRIN 325 MG TAB PO SCH (08:01)
[2018-09-22] MEDS ORDERED: NITROGLYCERIN SL TABS 0.4 MG TAB SUBLINGUAL PRN (09:11)
[2018-09-22] MEDS ORDERED: ALPRAZolam 0.25 MG TAB PO PRN (09:11)
[2018-09-22] MEDS ORDERED: ALPRAZolam 0.5 MG TAB PO PRN (09:11)
[2018-09-22] MEDS ORDERED: SODIUM CHLORIDE 0.9% 1,000 ML in EMPTY BAG 1 BAG IV ONE (09:11)
[2018-09-22 11:11] LABS: Glucose,Whole Blood 234 mg/dL (75-99)
--- NOTE | 2018-09-22 12:56 | CONS ---
CONSULTATION CHIEF COMPLAINT: Shortness of breath. HISTORY: This is a 57-year-old gentleman with history of coronary artery disease status post CABG on home O2, who presented to hospital with shortness of breath. He states that over the last few days he has become very short of breath and is becoming quickly tired. He denies any chest pain, palpitations, dizziness or syncope. The patient states that there was some discussion about putting in a defibrillator several years ago. The patient has known CAD, has had prior angioplasties and had bypass surgery in 2018. He apparently is supposed to have an outpatient stress test. Since being admitted to the hospital he is comfortable. Has had several troponins, first one was 0.03 and subsequent troponin has come back normal. EKG shows sinus bradycardia with left axis deviation and intraventricular conduction delay. Labs show a hemoglobin of 13.5, creatinine is 0.98. The patient's shortness of breath could be due to unstable angina. His lungs actually sound very clear. He does not have cough. Does not have productive sputum. I am not entirely sure why he has become short of breath. He has had similar episodes back in March of last year but at that time he had COPD exacerbation. PAST MEDICAL HISTORY: Significant for coronary artery disease status post CABG, hypertension, dyslipidemia, cardiomyopathy. CURRENT MEDICATIONS: Include Lasix 40 daily, Aldactone 25 daily, metoprolol 50 b.i.d., losartan 50 daily, Lipitor and aspirin. ALLERGIES: There are no known drug allergies. FAMILY HISTORY: Negative for premature coronary artery disease. SOCIAL HISTORY: Significant for smoking. There is no history of EtOH abuse or drug abuse. REVIEW OF SYSTEMS: HEENT is unremarkable. Cardiac as described above. Respiratory as described above. GI negative. Genitourinary negative. Allergy/Immunology negative. Skin is negative. Musculoskeletal significant for arthritis. Psychosocial negative. Endocrine and derm negative. Constitutional negative. Oncological negative. [employer] negative. The rest of the systems review is not relevant. EXAM: The patient is comfortable at rest. Heart rate is 68 beats per minute. Blood pressure is 121/67, respirations 18, O2 sat is 97% on 5 L. There is no jugular venous distention. Carotid upstroke is normal. There is no bruit. Chest exam reveals good air entry bilaterally. There are no crackles or rhonchi. Heart exam reveals first and second heart sounds. No gallop. No murmur. No rub. Abdomen is soft, nontender. Exam of extremities did not reveal any edema. Peripheral pulses are felt. LABS: Hemoglobin of 13.5, creatinine is 0.98. Tropes are negative. ASSESSMENT: 1. Non-ST segment elevation myocardial infarction. 2. Shortness of breath. 3. COPD. 4. Coronary artery disease, status post coronary artery bypass grafting. 5. History of cardiomyopathy. PLAN: I am concerned with the patient's shortness of breath. I am not quite sure this is due to COPD exacerbation as his lungs are clear and he does not have any new cough or new sputum. Given the mild elevation in troponin, I am advising the patient to undergo cardiac catheterization. We will schedule this tomorrow. If he has obstructive CAD, then we can address it and see if he feels any better. HEATH / BRUCE: [id number] /
[2018-09-22 16:21] LABS: Glucose,Whole Blood 154 mg/dL (75-99)
[2018-09-22] MEDS: INSULIN ASPART (NovoLOG) 100 UNIT/ML VIAL SQ SCH ×2 (16:46→20:53)
--- NOTE | 2018-09-22 17:33 | P.PN ---
Subjective Progress Note Date: 09/22/18 This is a pleasant 57-year-old male who presented to the emergency department with complaints of shortness of breath. Patient stated that the symptoms occurred while he was on his way home from the methadone clinic after receiving his daily dose of methadone of 100 mg. During the ride home the patient experienced shortness of breath where he felt like he was unable to catch his breath and unable to talk during that time. States that he had an increase to his methadone within the last week. Patient has been utilizing methadone for pain control for approximately the last 2 months. He states that the symptoms have been present for a couple days however they're worse at night and worsened during the drive home. Patient has history of COPD he is on chronic oxygen at home at 5 L which he normally wears only at night. Patient states that he only requires oxygen when he is sitting and not doing anything and does not utilize it with activity. Approximately 6 months ago patient exper ienced similar symptoms and also had a desperation of congestive heart failure where he was found to have an EF of 20-25% at that time. he was advised at that time to have a defibrillator placed, however due to his uncontrolled pain he declined. Patient states that now that his pain is under control he is acceptable for reevaluation for a defibrillator. At this time patient is resting comfortably in bed with O2 at 5 L via nasal cannula. Patient states that the shortness of breath has improved. He is not having any chest pain, leg pain or leg swelling. Patient denies any fever or chills at this time. Patient does have an occasional cough that is nonproductive. patient examined bedside patient does report insight E specially at bedtime as he is unable to catch her breath. He declined BiPAP or CPAP as patient has sinus obstruction and cannot tolerate high pressures. Apparently patient had multiple episodes of V. tach up to 8 beats yesterday evening with thesymptoms. EKG was ordered that showed sinus bradycardia with left axis deviation and intraventricular conduction delay. Patient does have significantly low ejection fraction on previous echo. Cardiology being cons ulted for magnesium was ordered that was normal. Patient does have history of coronary artery disease with prior angioplasties and had bypass surgery in 2018. Patient is undergoing cardiac cath tomorrow to rule out unstable angina. Apparently patient is on 6 L of oxygen by nasal cannula which is close to patient's baseline. Heart rate 58, blood pressure 112/79 saturating at 96 on 4 L./Suggestive of WBC 15.5 creatinine 0.98 glucose ranging from 150-234 continue sliding scale. Pulmonary evaluate the patient continues to be on steroids for COPD exacerbation and irises for systolic congestive heart failure with 40 IV daily Review of system Constitutional: No fever, no chills, no night sweats. No weight change. No weakness, fatigue or lethargy. No daytime sleepiness. EENT: No headache. No blurred vision or double vision, no loss of vision. No loss of Hearing, no ringing in the ears, no dizziness. No nasal drainage or congestion. No epistaxis. No sore throat. Lungs: Reports shortness of breath, reports cough, no sputum production. No wheezing. Cardiovascular: No chest pain, no lower extremity edema. No palpitations. Positive paroxysmal nocturnal dyspnea. Positive orthopnea. No lightheadedness or dizziness. No syncopal episodes. Abdominal: no abdominal discomfort. No nausea, vomiting. no diarrhea. No constipation. No bloody or tarry stools. improved loss of appetite. Genitourinary: No dysuria, increased frequency, urgency. No urinary retention. Musculoskeletal: No myalgias. No muscle weakness, no gait dysfunction, no frequent falls. Reports back pain. No neck pain. Integumentary: No wounds, no lesions. No rash or pruritus. No unusual bruising. No change in hair or nails. Neurologic: No aphasia. No facial droop. No change in mentation. No head injury. No headache. No paralysis. No paresthesia. Psychiatric: No depression. No anxiety. No mood swings. Endocrine: No abnormal blood sugars. No weight change. No excessive sweating or thirst. Objective - Vital Signs Vital signs: Vital Signs Temp 97.2 F L 09/22/18 11:37 Pulse 69 09/22/18 16:03 Resp 18 09/22/18 16:03 BP 112/79 09/22/18 16:00 Pulse Ox 96 09/22/18 16:00 Intake & Output 09/21/18 09/22/18 09/22/18 18:59 06:59 18:59 Intake Total 804 200 906 Output Total 700 200 600 Balance 104 0 306 Weight 86.8 kg 86.6 kg Intake: Oral 804 200 906 Output: Urine 700 200 600 Other: # Voids 1 - Exam - Constitutional General appearance: cooperative, no acute distress, obese - EENT Eyes: anicteric sclerae, PERRLA, normal appearance ENT: hearing grossly normal - Neck Neck: no lymphadenopathy, normal ROM, no other, no rigidity, no stridor, no thyromegaly - Respiratory Respiratory: bilateral: Decreased air entry bilateral lower extremity with minimal wheezes, no crackles or Rales heard - Cardiovascular Rhythm: regular Heart sounds: normal: S1, S2 Abnormal Heart Sounds: no systolic murmur, no diastolic murmur, no rub, no S3 Gallop, no S4 Gallop, no click, no other - Gastrointestinal General gastrointestinal: normal bowel sounds, soft - Integumentary Integumentary: no rash - Neurologic Neurologic: CNII-XII intact - Musculoskeletal Musculoskeletal: gait normal, strength equal bilaterally - Psychiatric Psychiatric: A&O x's 3, appropriate affect - Labs CBC & Chem 7: 09/22/18 05:57 09/22/18 05:57 Labs: Abnormal Lab Results - Last 24 Hours (Table) 09/21/18 09/22/18 09/22/18 Range/Units 21:03 05:57 05:57 WBC 15.5 H (3.8-10.6) k/uL Neutrophils # 14.2 H (1.3-7.7) k/uL Lymphocytes # 0.6 L (1.0-4.8) k/uL Carbon Dioxide 32 H (22-30) mmol/L BUN 44 H (9-20) mg/dL Glucose 158 H (74-99) mg/dL POC Glucose (mg/dL) 162 H (75-99) mg/dL 09/22/18 09/22/18 09/22/18 Range/Units 06:00 11:10 16:20 WBC (3.8-10.6) k/uL Neutrophils # (1.3-7.7) k/uL Lymphocytes # (1.0-4.8) k/uL Carbon Dioxide (22-30) mmol/L BUN (9-20) mg/dL Glucose (74-99) mg/dL POC Glucose (mg/dL) 158 H 234 H 154 H (75-99) mg/dL Assessment and Plan Plan: 1. Acute on chronic hypoxia respiratory failure secondary to congestive heart failure and COPD with exacerbation: Continue DuoNeb, Solu-Medrol 60 mg IV every 6 hours. Pulmonary consult appreciated. Continue with O2 at 5 L via nasal cannula continue doxycycline 100 mg IV twice a day continue DuoNeb as needed for shortness of breath. Patient is on 5 L nasal cannula at home 2. Chronic systolic Congestive heart failure with ejection fraction 20-25%, continue Lasix 40 mg IV daily consult cardiology, continue telemetry. 3. Acute kidney injury: Resolved Hold losartan, initiate Aldactone. Continue Lasix 40 IV daily Repeat CMP in the a.m. daily CMP 4. Elevated troponin: Consult cardiology, continue telemetry. Magnesium level ordered 5. Chronic pain management: Decrease methadone from 100 mg to 95 mg daily 6. Coronary artery disease status post CABG 2017, with history of stenting in the past continue aspirin 325 mg daily, losartan 50 mg twice daily, atorvastatin 40 mg by mouth daily 7. Hypertension: Lopressor 50 mg by mouth twice a day 8. Hyperlipidemia: Continue atorvastatin 40 mg daily 9. History of MRSA, resolved last positive culture 02/10 in the leg 10. DVT prophylaxis: Pneumatic compression sleeves bilateral, heparin subcu twice a day 11. GI prophylaxis: Pepcid 20 mg daily Plan of care patient underwent cardiac cath tomorrow
--- NOTE | 2018-09-22 18:38 | PN ---
PROGRESS NOTE DATE OF SERVICE: September 22, 2018. He does not complain of any chest pain. He seems to be breathing slightly better. On physical examination, blood pressure 105/66, respiratory rate of 18, pulse of 61, temperature 97.2, O2 saturation on 5 L by nasal cannula is 92%. HEENT is unremarkable. Chest reveals prolonged expiration. No clear wheeze. Cardiovascular system revealed an S1, S2. Abdomen is soft. There is trace pedal edema. White count is 15.5 1000, hemoglobin 13.5, sodium 138, potassium 4.6, chloride 98, bicarb 32, BUN 44, creatinine 0.98. IMPRESSION: At this time is: 1. Acute on chronic hypoxic respiratory failure due to chronic obstructive pulmonary disease with exacerbation and congestive heart failure with cardiomyopathy with an EF of only 20-25 percent. 2. Coronary artery disease with previous stent placement. 3. Nicotine dependence. Continue bronchodilators, aerosolized steroids and IV steroids. Increase his activity level. His prognosis is guarded. MMODL / IJN: [id number] /
[2018-09-22 20:52] LABS: Glucose,Whole Blood 122 mg/dL (75-99)
[2018-09-22] MEDS: HEPARIN SODIUM,PORCINE 5,000 UNIT/ML 1 ML VIAL SQ SCH (21:19)
[2018-09-22] MEDS: MONTELUKAST 10 MG TAB PO SCH (21:19)
[2018-09-23] MEDS ORDERED: ALPRAZolam 0.25 MG TAB PO STA (04:14)
[2018-09-23 05:58] LABS: Glucose,Whole Blood 137 mg/dL (75-99)
[2018-09-23] MEDS: INSULIN ASPART (NovoLOG) 100 UNIT/ML VIAL SQ SCH ×4 (06:07→21:28)
[2018-09-23] MEDS: NICOTINE 21MG/24HR PATCH TRANSDERM SCH (06:28)
[2018-09-23] MEDS: methylPREDNISolone SOD SUCCI 125 MG/2 ML VIAL IV SCH ×3 (06:29→17:06)
[2018-09-23] MEDS: FUROSEMIDE 10 MG/ML 4 ML VIAL IV SCH (06:29)
[2018-09-23] MEDS: METHADONE 10 MG TAB PO SCH (06:32)
[2018-09-23] MEDS: HEPARIN SODIUM,PORCINE 5,000 UNIT/ML 1 ML VIAL SQ SCH ×2 (06:32→20:37)
[2018-09-23] MEDS: FAMOTIDINE 20 MG TAB PO SCH (06:32)
[2018-09-23 06:33] LABS: Basophils % (A) 0 %; Eosinophils % (A) 0 %; HCT 41.4 % (39.0-53.0); HGB 13.1 gm/dL (13.0-17.5); Lymphocytes # (A) 0.5 k/uL (1.0-4.8); Lymphocytes % (A) 4 %; MCH 30.3 pg (25.0-35.0); MCHC 31.6 g/dL (31.0-37.0); MCV 95.8 fL (80.0-100.0); Mean Platelet Volume 7.8; Monocytes # (A) 0.5 k/uL (0-1.0); Monocytes % (A) 4 %; Neutrophils # (A) 11.4 k/uL (1.3-7.7); Neutrophils % (A) 91 %; Platelet Count 225 k/uL (150-450); RBC 4.33 m/uL (4.30-5.90); RDW 13.6 % (11.5-15.5); WBC 12.5 k/uL (3.8-10.6)
[2018-09-23] MEDS: SPIRONOLACTONE 25 MG TAB PO SCH (06:33)
[2018-09-23] MEDS: METOPROLOL TARTRATE 50 MG TAB PO SCH ×2 (06:33→20:37)
[2018-09-23] MEDS: METHADONE 5 MG TAB PO SCH (06:33)
[2018-09-23] MEDS: DOXYCYCLINE 100 MG CAP PO SCH ×2 (06:36→20:37)
[2018-09-23 06:46] LABS: ALT 57 U/L (21-72); AST 42 U/L (17-59); Albumin 4.1 g/dL (3.5-5.0); Alkaline Phosphatase 66 U/L (38-126); Anion Gap 4 mmol/L; Blood Urea Nitrogen 44 mg/dL (9-20); Calcium 9.4 mg/dL (8.4-10.2); Carbon Dioxide 33 mmol/L (22-30); Chloride 101 mmol/L (98-107); Glucose 111 mg/dL (74-99); Potassium 5.4 mmol/L (3.5-5.1); Sodium 138 mmol/L (137-145); Total Bilirubin 0.4 mg/dL (0.2-1.3); Total Protein 6.5 g/dL (6.3-8.2)
[2018-09-23] MEDS ORDERED: ASPIRIN 325 MG TAB PO ONE (08:00)
[2018-09-23] MEDS ORDERED: ATORVASTATIN 80 MG TAB PO ONE (08:00)
[2018-09-23] MEDS: BUDESONIDE 0.5 MG/2 ML NEBU INHALATION SCH ×2 (08:57→19:13)
[2018-09-23] MEDS: IPRATROPIUM-ALBUTEROL 3 ML NEB INHALATION SCH ×4 (08:57→19:14)
--- NOTE | 2018-09-23 09:14 | P.PN ---
Subjective Progress Note Date: 09/23/18 Principal diagnosis: Cardiomyopathy with chronic systolic heart failure ejection fraction of 20%, chronic hypoxic respiratory failure, acute renal failure, chronic pain syndrome, elevated troponin and non-STEMI, hypertension hypertensive cardiovascular disease, COPD exacerbation 09/23/2018, patient seen and evaluated and remained during the rounds, well- known to me from the office, he is less short of breath but is still on 6 L oxygen off note that patient takes 5 L home he had end-stage lung disease secondary severe COPD he has intermittent ventricular tachycardia cardiology is on consult due to significant heart failure patient is undergoing cardiac cath angiogram today is still on nebulizer treatment he feels slightly better compared to yesterday and day before yesterday This is a pleasant 57-year-old male who presented to the emergency department with complaints of shortness of breath. Patient stated that the symptoms occurred while he was on his way home from the methadone clinic after receiving his daily dose of methadone of 100 mg. During the ride home the patient experienced shortness of breath where he felt like he was unable to catch his breath and unable to talk during that time. States that he had an increase to his methadone within the last week. Patient has been utilizing methadone for pain control for approximately the last 2 months. He states that the symptoms have been present for a couple days however they're worse at night and worsened during the drive home. Patient has history of COPD he is on chronic oxygen at home at 5 L which he normally wears only at night. Patient states that he only requires oxygen when he is sitting and not doing anything and does not utilize it with activity. Approximately 6 months ago patient experienced similar symptoms and also had a desperation of congestive heart failure where he was found to have an EF of 20-25% at that time. he was advised at that time to have a defibrillator placed, however due to his uncontrolled pain he declined. Patient states that now that his pain is under control he is acceptable for reevaluation for a defibrillator. Objective - Vital Signs Vital signs: Vital Signs Temp 97.5 F L 09/23/18 07:32 Pulse 78 09/23/18 08:57 Resp 18 09/23/18 07:32 BP 138/82 09/23/18 07:32 Pulse Ox 100 09/23/18 07:32 Intake & Output 09/22/18 09/23/18 09/23/18 18:59 06:59 18:59 Intake Total 1128 700 Output Total 600 Balance 528 700 Weight 87.6 kg Intake: Intake, IV Titration 700 Amount Sodium Chloride 0.9% 1, 700 000 ml In Empty Bag 1 bag @ 1 ML/KG/HR 86.6 mls/hr IV .[id number] ONE Rx#: [id number] Oral 1128 Output: Urine 600 Other: # Voids 2 - Exam - Constitutional General appearance: cooperative, no acute distress, obese - EENT Eyes: anicteric sclerae, PERRLA, normal appearance ENT: hearing grossly normal - Neck Neck: no lymphadenopathy, normal ROM, no other, no rigidity, no stridor, no thyromegaly - Respiratory Respiratory: bilateral: Decreased air entry bilateral lower extremity with minimal wheezes, no crackles or Rales heard - Cardiovascular Rhythm: regular Heart sounds: normal: S1, S2 Abnormal Heart Sounds: no systolic murmur, no diastolic murmur, no rub, no S3 Gallop, no S4 Gallop, no click, no other - Gastrointestinal General gastrointestinal: normal bowel sounds, soft - Integumentary Integumentary: no rash - Neurologic Neurologic: CNII-XII intact - Musculoskeletal Musculoskeletal: gait normal, strength equal bilaterally - Psychiatric Psychiatric: A&O x's 3, appropriate affect - Labs CBC & Chem 7: 09/23/18 05:39 09/23/18 05:39 Labs: Abnormal Lab Results - Last 24 Hours (Table) 09/22/18 09/22/18 09/22/18 Range/Units 11:10 16:20 20:50 WBC (3.8-10.6) k/uL Neutrophils # (1.3-7.7) k/uL Lymphocytes # (1.0-4.8) k/uL Potassium (3.5-5.1) mmol/L Carbon Dioxide (22-30) mmol/L BUN (9-20) mg/dL Glucose (74-99) mg/dL POC Glucose (mg/dL) 234 H 154 H 122 H (75-99) mg/dL 09/23/18 09/23/18 09/23/18 Range/Units 05:39 05:39 05:56 WBC 12.5 H (3.8-10.6) k/uL Neutrophils # 11.4 H (1.3-7.7) k/uL Lymphocytes # 0.5 L (1.0-4.8) k/uL Potassium 5.4 H (3.5-5.1) mmol/L Carbon Dioxide 33 H (22-30) mmol/L BUN 44 H (9-20) mg/dL Glucose 111 H (74-99) mg/dL POC Glucose (mg/dL) 137 H (75-99) mg/dL Assessment and Plan Assessment: Acute on Chronic hypoxic respiratory failure Chronic systolic heart failure ejection fraction 20% Monomorphic ventricular tachycardia Elevated troponin possible non-ST segment elevated IA cannot be excluded Severe COPD with exacerbation Coronary artery disease with history of CABG in the past Plan: Continue bronchodilator Optimize treatment for heart failure Agree with obtaining artery cath and angiogram Maintain on 5-6 L oxygen DVT and peptic ulcer disease disease prophylaxis Further recommendations pending plan of care as per clinical response of the patient Time with Patient: Greater than 30
[2018-09-23] MEDS ORDERED: LORATADINE 10 MG TAB PO PRN (11:31)
[2018-09-23 12:20] LABS: Glucose,Whole Blood 111 mg/dL (75-99)
--- NOTE | 2018-09-23 12:36 | ECHOF ---
Referral Reason:chest pain MEASUREMENTS -------- HEIGHT: 172.7 cm WEIGHT: 87.5 kg BP: 109/77 RVIDd: 3.2 cm (< 3.3) IVSd: 1.5 cm (0.6 - 1.1) LVIDd: 6.5 cm (3.9 - 5.3) LVPWd: 1.6 cm (0.6 - 1.1) IVSs: 1.6 cm LVIDs: 7.3 cm LVPWs: 0.9 cm LA Diam: 5.3 cm (2.7 - 3.8) LAESV Index (A-L): 58.35 ml/m Ao Diam: 3.2 cm (2.0 - 3.7) AV Cusp: 1.8 cm (1.5 - 2.6) LA Diam: 6.2 cm (2.7 - 3.8) MV EXCURSION: 18.612 mm (> 18.000) MV EF SLOPE: 61 mm/s (70 - 150) EPSS: 1.6 cm MV E Parth: 0.89 m/s MV DecT: 182 ms MV A Parth: 0.54 m/s MV E/A Ratio: 1.66 RAP: 5.00 mmHg RVSP: 39.38 mmHg FINDINGS -------- Undetermined rhythm. This was a techncally difficult study with suboptimal views, , Lumason utilized for enhancement of im ages. The left ventricle is severely dilated. Overall left ventricular systolic function is severely impa ired with, an EF < 20%. The right ventricle is normal in size. The left atrial size is normal. The right atrial size is normal. 5.0mg OF Lumason UTLIZED: 2 OR MORE WALL SEGMENTS NOT VISUALIZED. There is mild aortic valve sclerosis. There is no evidence of aortic regurgitation. Mild mitral annular calcification present. [id number]-rbfznari mitral regurgitation is present. Mild tricuspid regurgitation present. There is borderline pulmonary artery hypertension. The righ t ventricular systolic pressure, as measured by Doppler, is 39.38mmHg. There is no pulmonic regurgitation present. The aortic root size is normal. IVC Not well visulized. Echo free space represents a pericardial fat pad. CONCLUSIONS -------- 1. This was a techncally difficult study with suboptimal views, , Lumason utilized for enhancement of images. 2. The left ventricle is severely dilated. 3. Overall left ventricular systolic function is severely impaired with, an EF < 20%. 4. The right ventricle is normal in size. 5. The left atrial size is normal. 6. The right atrial size is normal. 7. 5.0mg OF Lumason UTLIZED: 2 OR MORE WALL SEGMENTS NOT VISUALIZED. 8. Interatrial Septum not well visulized. 9. There is mild aortic valve sclerosis. 10. Mild mitral annular calcification present. 11. [id number] mitral regurgitation is present. 12. Mild tricuspid regurgitation present. 13. There is borderline pulmonary artery hypertension. 14. The right ventricular systolic pressure, as measured by Doppler, is 39.38mmHg. 15. There is no pulmonic regurgitation present. 16. The aortic root size is normal. 17. IVC Not well visulized. 18. Echo free space represents a pericardial fat pad. APPLICATION COORDINATOR: Glenda Jewell RDCS
[2018-09-23] MEDS ORDERED: LIDOCAINE 1% INJ 10MG/ML (20 ML MDV) SQ ONE (13:00)
[2018-09-23] MEDS ORDERED: IV FLUID CONTINUATION 900 ML IV ONE (13:04)
[2018-09-23] MEDS ORDERED: fentaNYL (PF) 50 MCG/ML 2 ML AMP IV ONE (13:04)
[2018-09-23] MEDS ORDERED: IOPAMIDOL-370 100ML BTL INJ ONE ×2 (13:15→13:27)
[2018-09-23] MEDS ORDERED: RX INFO: IV CONTRAST WAS GIVEN 1 EACH MISC MISCELLANE PRN (13:41)
[2018-09-23] MEDS ORDERED: SODIUM CHLORIDE 0.9% 1,000 ML IV SCH (13:45)
[2018-09-23] MEDS: FLUTICASONE 50MCG/SPRAY NASAL 16GM EA NOSTRIL PRN (14:45)
[2018-09-23 16:35] LABS: Glucose,Whole Blood 170 mg/dL (75-99)
--- NOTE | 2018-09-23 18:00 | P.PN ---
Subjective Progress Note Date: 09/23/18 Principal diagnosis: Dyspnea and shortness of breath, acute respiratory failure, congestive heart failure with severe ischemic cardiopathy, acute kidney failure, elevated troponin, chronic pain management and hypertension This is a pleasant 57-year-old male who presented to the emergency department with complaints of shortness of breath. Patient stated that the symp toms occurred while he was on his way home from the methadone clinic after receiving his daily dose of methadone of 100 mg. During the ride home the patient experienced shortness of breath where he felt like he was unable to catch his breath and unable to talk during that time. States that he had an increase to his methadone within the last week. Patient has been utilizing methadone for pain control for approximately the last 2 months. He states that the symptoms have been present for a couple days however they're worse at night and worsened during the drive home. Patient has history of COPD he is on chronic oxygen at home at 5 L which he normally wears only at night. Patient states that he only requires oxygen when he is sitting and not doing anything and does not utilize it with activity. Approximately 6 months ago patient experienced similar symptoms and also had a desperation of congestive heart failure where he was found to have an EF of 20-25% at that time. he was advised at that time to have a defibrillator placed, however due to his uncontrolled pain he declined. Patient states that now that his pain is under control he is acceptable for reevaluation for a defibrillator. At this time patient is resting comfortably in bed with O2 at 5 L via nasal cannula. Patient states that the shortness of breath has improved. He is not having any chest pain, leg pain or leg swelling. Patient denies any fever or chills at this time. Patient does have an occasional cough that is nonproductive. patient examined bedside patient does report insight E specially at b edtime as he is unable to catch her breath. He declined BiPAP or CPAP as patient has sinus obstruction and cannot tolerate high pressures. Apparently patient had multiple episodes of V. tach up to 8 beats yesterday evening with thesymptoms. EKG was ordered that showed sinus bradycardia with left axis deviation and intraventricular conduction delay. Patient does have significantly low ejection fraction on previous echo. Cardiology being consulted for magnesium was ordered that was normal. Patient does have history of coronary artery disease with prior angioplasties and had bypass surgery in 2018. Patient is undergoing cardiac cath tomorrow to rule out unstable angina. Apparently patient is on 6 L of oxygen by nasal cannula which is close to patient's baseline. Heart rate 58, blood pressure 112/79 saturating at 96 on 4 L./Suggestive of WBC 15.5 creatinine 0.98 glucose ranging from 150-234 continue sliding scale. Pulmonary evaluate the patient continues to be on steroids for COPD exacerbation and irises for systolic congestive heart failure with 40 IV daily 09/23: Patient still having mild dyspnea and shortness of breath is scheduled for heart catheter today with cardiology based on the severe cardiomyopathy of not clear etiology along with elevated troponin if he is still require any angioplasty and stent placement patient will be on dual antiplatelet agent and higher dose of statin for secondary prevention. Also patient remain on treatment for COPD and CHF remain on IV diuretics. also pain has been well controlled lately. Objective - Vital Signs Vital signs: Vital Signs Temp 97.5 F L 09/23/18 07:32 Pulse 62 09/23/18 11:25 Resp 18 09/23/18 11:25 BP 99/60 09/23/18 11:25 Pulse Ox 99 09/23/18 11:25 Intake & Output 09/22/18 09/23/18 09/23/18 18:59 06:59 18:59 Intake Total 1128 700 Output Total 600 Balance 528 700 Weight 87.6 kg Intake: Intake, IV Titration 700 Amount Sodium Chloride 0.9% 1, 700 000 ml In Empty Bag 1 bag @ 1 ML/KG/HR 86.6 mls/hr IV .[id number] ONE Rx#: [id number] Oral 1128 Output: Urine 600 Other: # Voids 2 - Exam Review of system: Constitutional: No fever, no chills, no night sweats. No weight change. No weakness, fatigue or lethargy. No daytime sleepiness. EENT: No headache. No blurred vision or double vision, no loss of vision. No loss of Hearing, no ringing in the ears, no dizziness. No nasal drainage or congestion. No epistaxis. No sore throat. Lungs: Reports shortness of breath, reports cough, no sputum production. No wheezing. Cardiovascular: No chest pain, no lower extremity edema. No palpitations. Positive paroxysmal nocturnal dyspnea. Positive orthopnea. No lightheadedness or dizziness. No syncopal episodes. Abdominal: no abdominal discomfort. No nausea, vomiting. no diarrhea. No constipation. No bloody or tarry stools. improved loss of appetite. Genitourinary: No dysuria, increased frequency, urgency. No urinary retention. Musculoskeletal: No myalgias. No muscle weakness, no gait dysfunction, no frequent falls. Reports back pain. No neck pain. Integumentary: No wounds, no lesions. No rash or pruritus. No unusual bruising. No change in hair or nails. Neurologic: No aphasia. No facial droop. No change in mentation. No head injury. No headache. No paralysis. No paresthesia. Psychiatric: No depression. No anxiety. No mood swings. Endocrine: No abnormal blood sugars. No weight change. No excessive sweating or thirst. Physical examination: General Appearance: Alert, cooperative, no distress, appears stated age. Neck HEENT: Supple, no lymphadenopathy, no thyroid enlargement, no carotid bruits. Lungs: Decreased breath sound bilaterally with fine rhonchi positive mild expiratory wheezes and slight crackles in the bases. Chest Wall: Decrease expansion with deep inspiration no tenderness and no deformity was found on exam, no costochondral pain or discomfort. Heart: Regular rate and rhythm, S1, S2 positive S3 positive JVD, no murmur, rub or gallop. Back: Symmetric, no curvature, ROM normal, no CVA tenderness. Abdomen: Soft, non-tender, bowel sounds active all four quadrants, no masses, no organomegaly. Extremities: Extremities normal, atraumatic, no cyanosis or edema. Pulses: 2+ and symmetric. Skin: Skin color, texture, tugor normal, no rashes or lesions. Neurologic: Alert oriented x3 cranial nerves II through XII intact, no motor deficit, no abnormal balance or gait. - Labs CBC & Chem 7: 09/23/18 05:39 09/23/18 05:39 Labs: Abnormal Lab Results - Last 24 Hours (Table) 09/22/18 09/22/18 09/23/18 Range/Units 16:20 20:50 05:39 WBC 12.5 H (3.8-10.6) k/uL Neutrophils # 11.4 H (1.3-7.7) k/uL Lymphocytes # 0.5 L (1.0-4.8) k/uL Potassium (3.5-5.1) mmol/L Carbon Dioxide (22-30) mmol/L BUN (9-20) mg/dL Glucose (74-99) mg/dL POC Glucose (mg/dL) 154 H 122 H (75-99) mg/dL 09/23/18 09/23/18 Range/Units 05:39 05:56 WBC (3.8-10.6) k/uL Neutrophils # (1.3-7.7) k/uL Lymphocytes # (1.0-4.8) k/uL Potassium 5.4 H (3.5-5.1) mmol/L Carbon Dioxide 33 H (22-30) mmol/L BUN 44 H (9-20) mg/dL Glucose 111 H (74-99) mg/dL POC Glucose (mg/dL) 137 H (75-99) mg/dL Assessment and Plan Plan: 1 acute respiratory failure: Combination of COPD, CHF, possible acute NM with severe ischemic cardiopathy with low ejection fraction, continue to treat, and problem and recheck patient is feeling slightly but better so far. 2 elevated troponin with cardiomyopathy: Ejection fraction is at 20-25 percentile only, patient is going for heart cath today with cardiology based on the result with the side and further management with require injury plasty and stent placement or only medical management. 3 congestive heart failure with mild exacerbation acute on chronic systolic and diastolic combined: Continue IV diuretics continue beta taylor. 4 COPD with mild exacerbation: Continue patient on steroid along with updraft treatment and O2. 5 chronic pain management: Decrease methadone from [place] to 95 mg daily he seems to tolerated very well currently. 6 hypertension: Well controlled on Lopressor 50 mg twice a day. 7 hyperlipidemia: Remain on atorvastatin 40 mg daily. CODE STATUS: Full code. Plan patient is going for heart cath today based on the result will decide on further management if has angioplasty adjust medication otherwise continue to treat current problem and expected discharge in 48 hours.
--- NOTE | 2018-09-23 18:09 | CC ---
CARDIAC CATHETERIZATION REPORT Mr. Goodman is a 57-year-old male with known history of coronary disease, history of CABG and severely impaired left ventricular systolic function, history of COPD who presented with an acute episode of dyspnea with minimal troponin elevation. He was evaluated by Dr. Vivas. Recommendations made regarding cardiac catheterization. The procedures, risks and complications were discussed with the patient who is in full understanding and agreement. PROCEDURE: Patient was brought to microbiology lab assistant in a fasting semisedated state after receiving fentanyl and Benadryl and achieving moderate conscious sedated state. Using Xylocaine anesthesia and Seldinger technique, a 6-Stateless sheath was introduced in the right femoral artery. Selective right and left coronary angiography was performed using 6- Stateless 4 bend right and left Sharonda catheter. Multiple views of the coronary artery including hemiaxial views obtained. Following that, the 6-Stateless right Sharonda catheter was used to cannulate the saphenous vein graft to the diagonal and to the right coronary artery and subsequently an ONEIL was used to cannulate the JACKSON to LAD. Images of the grafts were obtained. Following that, a 6-Stateless tight pigtail catheter was introduced into the left ventricle and a 30 degree MENDOZA view of the left ventricle was obtained. Following that, catheter and sheath were removed. Hemostasis was obtained with deployment of an Angio-Seal. There was no immediate complication. Patient is returned to his room in stable condition. FINDINGS: Left main: This is a large-sized vessel bifurcating into left circumflex, left anterior descending artery, left main coronary artery has no evidence of high-grade stenosis. Left anterior descending coronary artery: This vessel has a critical stenosis in the proximal segment at the takeoff of a diagonal branch. Has an area of 70% with slow flow in the distal LAD. Left circumflex: This is a codominant vessel large in caliber giving rise distally to a small PDA, gives rise to a large diagonal obtuse marginal branch in the distal segment. The left circumflex proximally has a 20% to 30% plaque without any evidence of high-grade stenosis. RIGHT CORONARY: This vessel is totally occluded after the takeoff of an acute marginal branch. There is no antegrade flow. The proximal and mid segment are diffusely diseased with area of stenosis up to 70%. Saphenous vein graft to the diagonal branch: The proximal and distal anastomotic sites are patent. The flow into the diagonal branch is brisk. The saphenous vein graft is a large in caliber. The saphenous vein graft to the right coronary artery: The proximal and distal anastomotic sites are patent. The flow into the PDA is brisk. There is no evidence of significant obstructive disease. JACKSON to LAD: The distal anastomotic site is patent. There is mild plaque at the anastomotic site of about 20%. The rest of the vessel has no high-grade stenosis. LEFT VENTRICULOGRAM: Left ventriculogram was performed in 30 degree MENDOZA view and revealed a severely dilated left ventricle with severely impaired left ventricular systolic function. The ejection fraction is 10-15%. There was 3+ mitral regurgitation. HEMODYNAMICS: There was no gradient across the aortic valve. The left ventricular end-diastolic pressure was 24-28 mmHg. CONCLUSION: 1. Severe stenosis in the LAD with occluded first obtuse marginal branch. 2. Chronic occluded mid right coronary artery. 3. Mild to moderate disease in proximal left circumflex. 4. Patent JACKSON to LAD. 5. Patent saphenous vein graft to the diagonal branch and to the right PDA. 6. Severely impaired left ventricular systolic function. RECOMMENDATIONS: At this time, I will continue to maximize his medical therapy and re-evaluate the patient regarding an ICD Bi V implant. Those findings were discussed with the patient and in the past he has declined ICD implantation. Depending on his progress, further recommendations will be made. Duration of procedure is 33 minutes. HEATH / GURMEETN: [id number] /
[2018-09-23] MEDS: MONTELUKAST 10 MG TAB PO SCH (20:37)
[2018-09-23 20:47] LABS: Glucose,Whole Blood 199 mg/dL (75-99)
[2018-09-24 05:38] LABS: Glucose,Whole Blood 131 mg/dL (75-99)
[2018-09-24] MEDS: INSULIN ASPART (NovoLOG) 100 UNIT/ML VIAL SQ SCH ×4 (06:08→20:38)
[2018-09-24 06:51] LABS: Basophils % (A) 0 %; Eosinophils % (A) 0 %; HCT 39.2 % (39.0-53.0); HGB 12.8 gm/dL (13.0-17.5); Lymphocytes # (A) 0.5 k/uL (1.0-4.8); Lymphocytes % (A) 6 %; MCH 31.7 pg (25.0-35.0); MCHC 32.7 g/dL (31.0-37.0); MCV 96.9 fL (80.0-100.0); Mean Platelet Volume 7.6; Monocytes # (A) 0.5 k/uL (0-1.0); Monocytes % (A) 7 %; Neutrophils # (A) 6.8 k/uL (1.3-7.7); Neutrophils % (A) 86 %; Platelet Count 194 k/uL (150-450); RBC 4.05 m/uL (4.30-5.90); RDW 13.3 % (11.5-15.5); WBC 7.9 k/uL (3.8-10.6)
[2018-09-24] MEDS: BUDESONIDE 0.5 MG/2 ML NEBU INHALATION SCH ×2 (07:05→20:36)
[2018-09-24] MEDS: IPRATROPIUM-ALBUTEROL 3 ML NEB INHALATION SCH ×4 (07:05→20:36)
[2018-09-24] MEDS: methylPREDNISolone SOD SUCCI 125 MG/2 ML VIAL IV SCH ×5 (07:06→23:08)
[2018-09-24 07:09] LABS: ALT 138 U/L (21-72); AST 80 U/L (17-59); Albumin 3.3 g/dL (3.5-5.0); Alkaline Phosphatase 56 U/L (38-126); Anion Gap -1 mmol/L; Blood Urea Nitrogen 36 mg/dL (9-20); Calcium 8.6 mg/dL (8.4-10.2); Carbon Dioxide 35 mmol/L (22-30); Chloride 103 mmol/L (98-107); Glucose 116 mg/dL (74-99); Potassium 5.1 mmol/L (3.5-5.1); Sodium 137 mmol/L (137-145); Total Bilirubin 0.4 mg/dL (0.2-1.3); Total Protein 5.5 g/dL (6.3-8.2)
[2018-09-24] MEDS: METHADONE 5 MG TAB PO SCH (08:43)
[2018-09-24] MEDS: HEPARIN SODIUM,PORCINE 5,000 UNIT/ML 1 ML VIAL SQ SCH ×2 (08:43→20:36)
[2018-09-24] MEDS: NICOTINE 21MG/24HR PATCH TRANSDERM SCH (08:43)
[2018-09-24] MEDS: METHADONE 10 MG TAB PO SCH (08:44)
[2018-09-24] MEDS: FAMOTIDINE 20 MG TAB PO SCH (08:44)
[2018-09-24] MEDS: SPIRONOLACTONE 25 MG TAB PO SCH (08:44)
[2018-09-24] MEDS: ASPIRIN 81 MG PO SCH (08:44)
[2018-09-24] MEDS: METOPROLOL TARTRATE 50 MG TAB PO SCH ×2 (08:45→20:36)
[2018-09-24] MEDS: FUROSEMIDE 40 MG TAB PO SCH (08:45)
[2018-09-24] MEDS: ATORVASTATIN 40 MG TAB PO SCH (08:45)
[2018-09-24] MEDS: DOXYCYCLINE 100 MG CAP PO SCH ×2 (08:56→21:48)
[2018-09-24] MEDS ORDERED: ASPIRIN 325 MG TAB PO SCH (09:00)
[2018-09-24] MEDS ORDERED: LOSARTAN 25 MG TAB PO SCH (09:00)
[2018-09-24 11:36] LABS: Glucose,Whole Blood 160 mg/dL (75-99)
--- NOTE | 2018-09-24 13:51 | P.PN ---
Subjective Progress Note Date: 09/24/18 Principal diagnosis: Cardiomyopathy with chronic systolic heart failure ejection fraction of 20%, chronic hypoxic respiratory failure, acute renal failure, chronic pain syndrome, elevated troponin and non-STEMI, hypertension hypertensive cardiovascular disease, COPD exacerbation 09/24/2018, patient seen and evaluated examined overall respiratory status slightly better, status post cardiac cath patient is being evaluated for AICD 09/23/2018, patient seen and evaluated and remained during the rounds, well- known to me from the office, he is less short of breath but is still on 6 L oxygen off note that patient takes 5 L home he had end-stage lung disease secondary severe COPD he has intermittent ventricular tachycardia cardiology is on consult due to significant heart failure patient is undergoing cardiac cath angiogram today is still on nebulizer treatment he feels slightly better compared to yesterday and day before yesterday This is a pleasant 57-year-old male who presented to the emergency department with complaints of shortness of breath. Patient stated that the symptoms occurred while he was on his way home from the methadone clinic after receiving his daily dose of methadone of 100 mg. During the ride home the patient experienced shortness of breath where he felt like he was unable to catch his breath and unable to talk during that time. States that he had an increase to his methadone within the last week. Patient has been utilizing meth adone for pain control for approximately the last 2 months. He states that the symptoms have been present for a couple days however they're worse at night and worsened during the drive home. Patient has history of COPD he is on chronic oxygen at home at 5 L which he normally wears only at night. Patient states that he only requires oxygen when he is sitting and not doing anything and does not utilize it with activity. Approximately 6 months ago patient experienced similar symptoms and also had a desperation of congestive heart failure where he was found to have an EF of 20-25% at that time. he was advised at that time to have a defibrillator placed, however due to his uncontrolled pain he declined. Patient states that now that his pain is under control he is acceptable for reevaluation for a defibrillator. Objective - Vital Signs Vital signs: Vital Signs Temp 96.4 F L 09/24/18 12:00 Pulse 72 09/24/18 12:00 Resp 18 09/24/18 12:00 BP 118/81 09/24/18 12:00 Pulse Ox 98 09/24/18 12:00 Intake & Output 09/23/18 09/24/18 09/24/18 18:59 06:59 18:59 Intake Total 460 480 Output Total 950 Balance 460 -950 480 Weight 89 kg Intake: IV 100 Oral 360 480 Output: Urine 950 Other: Voiding Method Urinal Urinal # Voids 2 1 2 - Exam - Constitutional General appearance: cooperative, no acute distress, obese - EENT Eyes: anicteric sclerae, PERRLA, normal appearance ENT: hearing grossly normal - Neck Neck: no lymphadenopathy, normal ROM, no other, no rigidity, no stridor, no thyromegaly - Respiratory Respiratory: bilateral: Decreased air entry bilateral lower extremity with minimal wheezes, no crackles or Rales heard - Cardiovascular Rhythm: regular Heart sounds: normal: S1, S2 Abnormal Heart Sounds: no systolic murmur, no diastolic murmur, no rub, no S3 Gallop, no S4 Gallop, no click, no other - Gastrointestinal General gastrointestinal: normal bowel sounds, soft - Integumentary Integumentary: no rash - Neurologic Neurologic: CNII-XII intact - Musculoskeletal Musculoskeletal: gait normal, strength equal bilaterally - Psychiatric Psychiatric: A&O x's 3, appropriate affect - Labs CBC & Chem 7: 09/24/18 05:43 09/24/18 05:43 Labs: Abnormal Lab Results - Last 24 Hours (Table) 09/23/18 09/23/18 09/24/18 Range/Units 16:22 20:46 05:37 RBC (4.30-5.90) m/uL Hgb (13.0-17.5) gm/dL Lymphocytes # (1.0-4.8) k/uL Carbon Dioxide (22-30) mmol/L BUN (9-20) mg/dL Glucose (74-99) mg/dL POC Glucose (mg/dL) 170 H 199 H 131 H (75-99) mg/dL AST (17-59) U/L ALT (21-72) U/L Total Protein (6.3-8.2) g/dL Albumin (3.5-5.0) g/dL 09/24/18 09/24/18 09/24/18 Range/Units 05:43 05:43 11:29 RBC 4.05 L (4.30-5.90) m/uL Hgb 12.8 L (13.0-17.5) gm/dL Lymphocytes # 0.5 L (1.0-4.8) k/uL Carbon Dioxide 35 H (22-30) mmol/L BUN 36 H (9-20) mg/dL Glucose 116 H (74-99) mg/dL POC Glucose (mg/dL) 160 H (75-99) mg/dL AST 80 H (17-59) U/L ALT 138 H (21-72) U/L Total Protein 5.5 L (6.3-8.2) g/dL Albumin 3.3 L (3.5-5.0) g/dL Assessment and Plan Assessment: Acute on Chronic hypoxic respiratory failure Chronic systolic heart failure ejection fraction 20% Monomorphic ventricular tachycardia Elevated troponin possible non-ST segment elevated [place] cannot be excluded Severe COPD with exacerbation Coronary artery disease with history of CABG in the past Plan: Continue bronchodilator Optimize treatment for heart failure Agree with obtaining artery cath and angiogram Maintain on 5-6 L oxygen DVT and peptic ulcer disease disease prophylaxis Being evaluated for AICD Further recommendations pending plan of care as per clinical response of the patient Time with Patient: Greater than 30
--- NOTE | 2018-09-24 14:34 | P.PN ---
Subjective Progress Note Date: 09/24/18 This is a pleasant 57-year-old male who presented to the emergency department with complaints of shortness of breath. Patient stated that the symptoms occurred while he was on his way home from the methadone clinic after receiving his daily dose of methadone of 100 mg. During the ride home the patient experienced shortness of breath where he felt like he was unable to catch his breath and unable to talk during that time. States that he had an increase to his methadone within the last week. Patient has been utilizing methadone for pain control for approximately the last 2 months. He states that the symptoms have been present for a couple days however they're worse at night and worsened during the drive home. Patient has history of COPD he is on chronic oxygen at home at 5 L which he normally wears only at night. Patient states that he only requires oxygen when he is sitting and not doing anything and does not utilize it with activity. Approximately 6 months ago patient exper ienced similar symptoms and also had a desperation of congestive heart failure where he was found to have an EF of 20-25% at that time. he was advised at that time to have a defibrillator placed, however due to his uncontrolled pain he declined. Patient states that now that his pain is under control he is acceptable for reevaluation for a defibrillator. At this time patient is resting comfortably in bed with O2 at 5 L via nasal cannula. Patient states that the shortness of breath has improved. He is not having any chest pain, leg pain or leg swelling. Patient denies any fever or chills at this time. Patient does have an occasional cough that is nonproductive. patient examined bedside patient does report insight E specially at bedtime as he is unable to catch her breath. He declined BiPAP or CPAP as patient has sinus obstruction and cannot tolerate high pressures. Apparently patient had multiple episodes of V. tach up to 8 beats yesterday evening with thesymptoms. EKG was ordered that showed sinus bradycardia with left axis deviation and intraventricular conduction delay. Patient does have significantly low ejection fraction on previous echo. Cardiology being cons ulted for magnesium was ordered that was normal. Patient does have history of coronary artery disease with prior angioplasties and had bypass surgery in 2018. Patient is undergoing cardiac cath tomorrow to rule out unstable angina. Apparently patient is on 6 L of oxygen by nasal cannula which is close to patient's baseline. Heart rate 58, blood pressure 112/79 saturating at 96 on 4 L./Suggestive of WBC 15.5 creatinine 0.98 glucose ranging from 150-234 continue sliding scale. Pulmonary evaluate the patient continues to be on steroids for COPD exacerbation and irises for systolic congestive heart failure with 40 IV daily 09/23: Patient still having mild dyspnea and shortness of breath is scheduled for heart catheter today with cardiology based on the severe cardiomyopathy of not clear etiology along with elevated troponin if he is still require any angioplasty and stent placement patient will be on dual antiplatelet agent and higher dose of statin for secondary prevention. Also patient remain on treatment for COPD and CHF remain on IV diuretics. also pain has been well controlled lately. 09/24: Patient is found ambulating in the hallway at 5 L nasal cannula. Pulse ox is 98%, patient is been afebrile, heart rate in the 60s and 70s Patient states that his breathing does not seem to be any better and he still has some congestion. He is using incentive spirometry at 1500 mils. Patient is requesting Xanax for anxiety which will be admitted. Heart catheterization done yesterday with Dr. Ch reveals severe stenosis of the LAD with occluded first obtuse marginal branch, chronically occluded mid right coronary artery, mild to moderate disease of the proximal left circumflex, patent JACKSON to LAD, patent saphenous vein graft to the diagonal branch and to the right PDA, severely impaired left ventricular systolic function. Lantus to maximize medical therapy and reevaluate for ICD biventricular implantation. Ejection fraction 10-15%, 3+ mitral regurgitation. Echocardiogram reveals EF of less than 20%, left ventricular severely dilated, mild to moderate mitral regurgitation, mild tricuspid regurgitation, borderline pulmonary artery hypertension. Review of system: Constitutional: No fever, no chills, no night sweats. No weight change. No weakness, fatigue or lethargy. No daytime sleepiness. EENT: No headache. No blurred vision or double vision, no loss of vision. No loss of Hearing, no ringing in the ears, no dizziness. No nasal drainage or congestion. No epistaxis. No sore throat. Lungs: Reports shortness of breath, reports cough, no sputum production. No wheezing. Reports dyspnea with exertion Cardiovascular: No chest pain, no lower extremity edema. No palpitations. Positive paroxysmal nocturnal dyspnea. Positive orthopnea. No lightheadedness or dizziness. No syncopal episodes. Abdominal: no abdominal discomfort. No nausea, vomiting. no diarrhea. No constipation. No bloody or tarry stools. improved loss of appetite. Genitourinary: No dysuria, increased frequency, urgency. No urinary retention. Musculoskeletal: No myalgias. No muscle weakness, no gait dysfunction, no frequent falls. Reports back pain. No neck pain. Integumentary: No wounds, no lesions. No rash or pruritus. No unusual bruis ing. No change in hair or nails. Neurologic: No aphasia. No facial droop. No change in mentation. No head injury. No headache. No paralysis. No paresthesia. Psychiatric: No depression. No anxiety. No mood swings. Endocrine: No abnormal blood sugars. No weight change. No excessive sweating or thirst. Physical examination: General Appearance: Alert, cooperative, no distress, appears stated age.patient ambulatory in the hallway with very minimal respiratory distress. Neck HEENT: Supple, no lymphadenopathy, no thyroid enlargement, no carotid bruits. Lungs: Decreased breath sound bilaterally with fine rhonchi positive mild expiratory wheezes and slight crackles in the bases. Chest Wall: Decrease expansion with deep inspiration no tenderness and no deform ity was found on exam, no costochondral pain or discomfort. Heart: Regular rate and rhythm, S1, S2 positive S3 positive JVD, no murmur, rub or gallop. Back: Symmetric, no curvature, ROM normal, no CVA tenderness. Abdomen: Soft, non-tender, bowel sounds active all four quadrants, no masses, no organomegaly. Extremities: Extremities normal, atraumatic, no cyanosis or edema. Pulses: 2+ and symmetric. Skin: Skin color, texture, tugor normal, no rashes or lesions. Neurologic: Alert oriented x3 cranial nerves II through XII intact, no motor deficit, no abnormal balance or gait. Assessment and Plan Plan: 1 acute respiratory distress: Combination of COPDexacerbation, acute systolic heart failure,non-ST elevated myocardial infarction, severe ischemiccardiomyopathy. Cardiology consult, pulmonary consult appreciated. 2 non-ST elevated myocardial infarction and ischemic cardiomyopathy. cardiology consult above. Continue medical management. 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 4 COPD with mild exacerbation: Continue patient on steroid along with updraft treatment and O2. 5 chronic pain management: Decrease methadone from [place] to 95 mg daily he seems to tolerated very well currently. 6 hypertension: Well controlled on Lopressor 50 mg twice a day. 7 hyperlipidemia: Remain on atorvastatin 40 mg daily. 8 chronic hypoxic respiratory failure on home O2. CODE STATUS: Full code. Discharge plan: Home Impression and plan of care have been directed as dictated by the signing physician. Isabelle Andersen nurse practitioner acting as scribe for signing physician. Objective - Vital Signs Vital signs: Vital Signs Temp 96.4 F L 09/24/18 12:00 Pulse 72 09/24/18 12:00 Resp 18 09/24/18 12:00 BP 118/81 09/24/18 12:00 Pulse Ox 98 09/24/18 12:00 Intake & Output 09/23/18 09/24/18 09/24/18 18:59 06:59 18:59 Intake Total 460 480 Output Total 950 Balance 460 -950 480 Weight 89 kg Intake: IV 100 Oral 360 480 Output: Urine 950 Other: Voiding Method Urinal Urinal # Voids 2 1 2 - Labs CBC & Chem 7: 09/24/18 05:43 09/24/18 05:43 Labs: Abnormal Lab Results - Last 24 Hours (Table) 09/23/18 09/23/18 09/24/18 Range/Units 16:22 20:46 05:37 RBC (4.30-5.90) m/uL Hgb (13.0-17.5) gm/dL Lymphocytes # (1.0-4.8) k/uL Carbon Dioxide (22-30) mmol/L BUN (9-20) mg/dL Glucose (74-99) mg/dL POC Glucose (mg/dL) 170 H 199 H 131 H (75-99) mg/dL AST (17-59) U/L ALT (21-72) U/L Total Protein (6.3-8.2) g/dL Albumin (3.5-5.0) g/dL 09/24/18 09/24/18 09/24/18 Range/Units 05:43 05:43 11:29 RBC 4.05 L (4.30-5.90) m/uL Hgb 12.8 L (13.0-17.5) gm/dL Lymphocytes # 0.5 L (1.0-4.8) k/uL Carbon Dioxide 35 H (22-30) mmol/L BUN 36 H (9-20) mg/dL Glucose 116 H (74-99) mg/dL POC Glucose (mg/dL) 160 H (75-99) mg/dL AST 80 H (17-59) U/L ALT 138 H (21-72) U/L Total Protein 5.5 L (6.3-8.2) g/dL Albumin 3.3 L (3.5-5.0) g/dL
--- NOTE | 2018-09-24 14:45 | P.PN ---
Subjective Progress Note Date: 09/24/18 This is a 57-year-old gentleman who follows regularly with Dr. Ch in the office. He has a known history of coronary artery disease with prior stenting of the circumflex in 2013, in August of last year he underwent coronary bypass grafting surgery at which time he had a JACKSON to the LAD, reverse saphenous vein graft from the aorta to the diagonal artery, reverse saphenous vein graft from the aorta to the posterior descending artery, history also of hypertension, hyperlipidemia, emphysema, nicotine dependence. Patient has known ischemic cardio myopathy with a documented ejection fraction of 20-25%, Dr. Ch has spoke with him in the past regarding AICD implantation and the patient has refused. He presented to the hospital on this occasion with symptoms of chest discomfort and fairly sudden onset of shortness of breath. He underwent a cardiac catheterization yesterday by Dr. Ch which revealed severe stenosis in the LAD with occluded first obtuse marginal branch, chronically occluded mid right coronary artery and mild to moderate disease in the proximal circumflex, patent JACKSON to the LAD, patent saphenous vein graft to the diagonal branch and right PDA, with severely impaired left ventricular systolic function. He was advised maximum medical therapy, with the recommen dation to reconsider AICD, bi-V implant. Patient was seen and examined this morning, denied any chest pain or difficulty in breathing. He is quite nervous about going home because of the severity of his symptoms on presentation here. Patient wishes to proceed with having implant of AICD. For this reason, Dr. Lai recommended a consultation with Dr. Green. Dr. Green did come up to see the patient this afternoon, explained the bi-V AICD implant and procedure to the patient, we also discontinue the Cozaar and will startEntresto from this evening. Patient is willing to proceed with the implant, Dr. Green we'll review his schedule and plan on that sometime this week. Blood pressure 118/80 with a heart rate in the 70s today. White blood cell count 7.9, hemoglobin 12.8, platelet count 194. Sodium 137, potassium 5.1, BUN 36 and creatinine 0.8. AST 80 ALT 138, alk phos 56. We will check a TSH level. Objective - Vital Signs Vital signs: Vital Signs Temp 96.4 F L 09/24/18 12:00 Pulse 72 09/24/18 12:00 Resp 18 09/24/18 12:00 BP 118/81 09/24/18 12:00 Pulse Ox 98 09/24/18 12:00 Intake & Output 09/23/18 09/24/18 09/24/18 18:59 06:59 18:59 Intake Total 460 480 Output Total 950 Balance 460 -950 480 Weight 89 kg Intake: IV 100 Oral 360 480 Output: Urine 950 Other: Voiding Method Urinal Urinal # Voids 2 1 2 - Exam PHYSICAL EXAMINATION: GENERAL: 57-year-old gentleman in no acute distress at the time of my examination HEENT: Head is atraumatic, normocephalic. Pupils equal, round. Sclera anicteric. Conjunctiva are clear. Mucous membranes of the mouth are moist. Neck is supple. There is elevated jugular venous pressure to the angle of the jaw. No carotid bruit is heard. HEART EXAMINATION: Heart S1, S2 normal. Systolic murmur suggestive of mitral insuff CHEST EXAMINATION: Lungs reveal improvement in air entry to bilateral bases. ABDOMEN: Mildly distended , nontender. Bowel sounds are heard. No organomegaly noted. EXTREMITIES: 2+ peripheral pulses with trace evidence of peripheral edema and no calf tenderness noted. Right groin soft, no evidence of any hematoma. NEUROLOGIC patient is awake, alert and orientedX3 - Labs CBC & Chem 7: 09/24/18 05:43 09/24/18 05:43 Labs: Abnormal Lab Results - Last 24 Hours (Table) 09/23/18 09/23/18 09/24/18 Range/Units 16:22 20:46 05:37 RBC (4.30-5.90) m/uL Hgb (13.0-17.5) gm/dL Lymphocytes # (1.0-4.8) k/uL Carbon Dioxide (22-30) mmol/L BUN (9-20) mg/dL Glucose (74-99) mg/dL POC Glucose (mg/dL) 170 H 199 H 131 H (75-99) mg/dL AST (17-59) U/L ALT (21-72) U/L Total Protein (6.3-8.2) g/dL Albumin (3.5-5.0) g/dL 09/24/18 09/24/18 09/24/18 Range/Units 05:43 05:43 11:29 RBC 4.05 L (4.30-5.90) m/uL Hgb 12.8 L (13.0-17.5) gm/dL Lymphocytes # 0.5 L (1.0-4.8) k/uL Carbon Dioxide 35 H (22-30) mmol/L BUN 36 H (9-20) mg/dL Glucose 116 H (74-99) mg/dL POC Glucose (mg/dL) 160 H (75-99) mg/dL AST 80 H (17-59) U/L ALT 138 H (21-72) U/L Total Protein 5.5 L (6.3-8.2) g/dL Albumin 3.3 L (3.5-5.0) g/dL Assessment and Plan Plan: Assessment and Plan: #1 systolic congestive heart failure acute on chronic. Most recent echocardiogram with Doppler study was performed in August of this year which revealed an ejection fraction of 20-25%. #2 chest pain with known history of coronary artery disease with prior stent placement of the RCA and circumflex in 2013 subsequently patient underwent coronary artery bypass grafting surgery in August of 2017. Cardiac catheterization performed yesterday revealed severe stenosis in the LAD with occluded first obtuse marginal branch, chronically occluded mid right coronary artery, mild to moderate disease in the proximal circumflex, patent JACKSON to the LAD, saphenous vein graft to the diagonal branch and right PDA patent, severely impaired left ventricular systolic function. #3 hypertension #4 hyperlipidemia #5 nicotine dependence #6 COPD #7 mildly abnormal liver functions, likely secondary to congestion. #8 ischemic cardiomyopathy, documented ejection fraction of 20-25%. Plan Dr. Green has been consulted for possible by V AICD implantation. He did come to see the patient, and spoke to the patient in detail regarding the procedure and the device as well as the risks and benefits to him. Cozaar has been discontinued and from this evening we will start the patient on Entresto. From tomorrow initiate Toprol-XL. Patient will go for AICD implantation, exact timing to be determined. DNP note has been reviewed, I agree with a documented findings and plan of care. Patient was seen and examined.
--- NOTE | 2018-09-24 15:10 | P.CRDCN ---
History of Present Illness History of present illness: This is Dr. Green dictating an EP consult on this patient The patient was interviewed and examined by me IMPRESSION / ASSESSMENT: CAD, multivessel, coronary artery bypass grafting body and a half pack Severe ischemic cardio myopathy Recent coronary angiography revealed patent grafts Sinus bradycardia with left bundle branch block pattern, QRS width 144 ms Presented with recurrent episodes of shortness of breath CHF class 2-3 with acute CHF exacerbation History of tobacco use, current COPD PLAN: TSH level, d-dimer level Maximize heart failure medications Start ENTRESTO. Losartan Switched to long-acting metoprolol or if patient can tolerate carvedilol along with ENTRESTO Biventricular ICD implantation/physiologic septal pacing for management of heart failure and primary prevention of sudden cardiac Smoking cessation Low salt diet Compliance with medical treatment and follow-up Watch potassium on ENTRESTO and Aldactone HPI Patient presented with recurrent episodes of sudden onset of shortness of breath especially with exertion He denied any chest discomfort or angina like pain He denied any palpitations dizziness or loss of consciousness ROS: No fever chills or rigors, no cough, phlegm or expectoration, no nausea, vomiting or diarrhea, no hematuria, dysuria, no musculoskeletal complaints, no strokes or seizures, no skin lesions. EXAMINATION: Afebrile 96.4F pulse rate in the 70s blood pressure 118/81 mmHg Breath sounds are clear. No rhonchi no crackles at the reduced bilaterally Heart sounds S1 and S2 are normal no murmurs no gallops no rub No JVD Barrel chest Trophic changes in lower extremities but no lower extremity edema Patient is sitting comfortably in bed REVIEW OF LABS, ECG & MEDICAL DATA Twelve-lead ECG shows sinus rhythm normal ID (branch block with a QRS width of 144 ms T-wave inversions V4-V6 Labs are reviewed sodium 137 potassium 5.1, BUN 36 creatinine 0.86 AST 80 ALT 138 alkaline phosphatase 56 Severe LV dysfunction LV is severely dilated left radical ejection fraction less than 20% RVSP 40 mmHg Normal atrial size [id number]-hblxxevl mitral regurgitation Past Medical History Past Medical History: Coronary Artery Disease (CAD), Heart Failure, COPD, Hyperlipidemia, Hypertension, Myocardial Infarction (CO), Respiratory Disorder Additional Past Medical History / Comment(s): Home oxygen which pt states he wears a 5L/NC at HS usually but more often than that lately, seasonal allergies, chronic low back pain Last Myocardial Infarction Date:: 2013 History of Any Multi-Drug Resistant Organisms: MRSA Date of last positivie culture/infection: 02/08/09 MDRO Source:: Leg Past Surgical History: Coronary Bypass/CABG, Heart Catheterization With Stent Additional Past Surgical History / Comment(s): CABG 2018- 3 vessel Past Anesthesia/Blood Transfusion Reactions: No Reported Reaction Additional Past Anesthesia/Blood Transfusion Reaction / Comment(s): Difficulty in breathing Date of Last Stent Placement:: 2013 Smoking Status: Former smoker - Past Family History Father Family Medical History: Cancer Additional Family Medical History / Comment(s): Pancreatic CA Mother Family Medical History: Cancer Additional Family Medical History / Comment(s): Leukemia Medications and Allergies Home Medications Medication Instructions Recorded Confirmed Type Atorvastatin [Lipitor] 40 mg PO DAILY #30 tab 08/31/16 09/20/18 Rx Metoprolol Tartrate [Lopressor] 50 mg PO BID #60 tab 08/31/16 09/20/18 Rx Aspirin 81 mg PO DAILY chew 01/09/18 09/20/18 Rx Spironolactone [Aldactone] 25 mg PO DAILY #30 tab 01/09/18 09/20/18 Rx Furosemide [Lasix] 40 mg PO DAILY 09/20/18 09/20/18 History Losartan [Cozaar] 50 mg PO DAILY 09/20/18 09/20/18 History Nitroglycerin Sl Tabs [Nitrostat] 0.4 mg SUBLINGUAL Q5M PRN #25 tab 09/24/18 Rx Allergies Allergy/AdvReac Type Severity Reaction Status Date / Time No Known Allergies Allergy Verified 09/20/18 11:13 Physical Exam Vitals: Vital Signs Temp Pulse Pulse Resp BP BP Pulse Ox 09/24/18 12:00 96.4 F L 72 18 118/81 98 09/24/18 11:49 68 09/24/18 11:36 67 09/24/18 08:00 96.4 F L 64 18 130/68 98 09/24/18 07:21 68 09/24/18 07:05 72 98 09/24/18 04:00 61 18 121/82 99 09/24/18 00:00 97.1 F L 59 L 18 108/63 95 09/23/18 20:00 97.2 F L 67 18 111/64 92 L 09/23/18 19:22 74 09/23/18 19:16 99 04/22/19 19:11 72 09/23/18 17:02 56 L 103/58 09/23/18 16:19 107/59 09/23/18 15:26 65 18 102/59 96 09/23/18 15:15 18 Intake and Output 09/24/18 09/24/18 09/24/18 06:59 14:59 22:59 Intake Total 480 Output Total 600 Balance -600 480 Intake: Oral 480 Output: Urine 600 Other: Voiding Method Urinal # Voids 2 Weight 89 kg Results 09/24/18 05:43 09/24/18 05:43 Cardiac Enzymes 09/24/18 Range/Units 05:43 AST 80 H (17-59) U/L CBC 09/24/18 Range/Units 05:43 WBC 7.9 (3.8-10.6) k/uL RBC 4.05 L (4.30-5.90) m/uL Hgb 12.8 L (13.0-17.5) gm/dL Hct 39.2 (39.0-53.0) % Plt Count 194 (150-450) k/uL Comprehensive Metabolic Panel 09/24/18 Range/Units 05:43 Sodium 137 (137-145) mmol/L Potassium 5.1 (3.5-5.1) mmol/L Chloride 103 (98-107) mmol/L Carbon Dioxide 35 H (22-30) mmol/L BUN 36 H (9-20) mg/dL Creatinine 0.86 (0.66-1.25) mg/dL Glucose 116 H (74-99) mg/dL Calcium 8.6 (8.4-10.2) mg/dL AST 80 H (17-59) U/L ALT 138 H (21-72) U/L Alkaline Phosphatase 56 (38-126) U/L Total Protein 5.5 L (6.3-8.2) g/dL Albumin 3.3 L (3.5-5.0) g/dL Current Medications Generic Name Dose Route Start Last Admin Trade Name Freq PRN Reason Stop Dose Admin Albuterol/Ipratropium 3 ml 09/20/18 16:00 09/24/18 11:36 Duoneb 0.5 Mg-3 Mg/3 Ml Soln INHALATION 3 ml RT-QID JULIANE Administration Albuterol/Ipratropium 3 ml 09/20/18 12:43 Duoneb 0.5 Mg-3 Mg/3 Ml Soln INHALATION RT-Q4H PRN Shortness Of Breath Or Wheezing Alprazolam 0.25 mg 09/24/18 13:41 Xanax PO BID PRN Anxiety Aspirin 81 mg 09/24/18 09:00 09/24/18 08:44 Aspirin PO 81 mg DAILY JULIANE Administration Atorvastatin Calcium 40 mg 09/24/18 09:00 09/24/18 08:45 Lipitor PO 40 mg DAILY JULIANE Administration Budesonide 0.5 mg 09/21/18 20:00 09/24/18 07:05 Pulmicort INHALATION 0.5 mg RT-BID JULIANE Administration Doxycycline Monohydrate 100 mg 09/21/18 21:00 09/24/18 08:56 Vibramycin PO 100 mg BID JULIANE Administration Famotidine 20 mg 09/22/18 09:00 09/24/18 08:44 Pepcid PO 20 mg DAILY JULIANE Administration Fluticasone Propionate 2 spray 09/23/18 11:32 09/23/18 14:45 Flonase Nasal Brush EA NOSTRIL 2 spray DAILY PRN Administration Allergy Symptoms Furosemide 40 mg 09/24/18 09:00 09/24/18 08:45 Lasix PO 40 mg DAILY JULIANE Administration Heparin Sodium (Porcine) 5,000 unit 09/22/18 21:00 09/24/18 08:43 Heparin SQ 5,000 unit Q12HR JULIANE Administration Insulin Aspart 0 unit 09/22/18 17:30 09/24/18 11:38 Novolog SQ 3 unit ACHS JULIANE Administration Protocol Loratadine 10 mg 09/23/18 11:31 09/23/18 12:00 Claritin PO 10 mg DAILY PRN Administration Allergy Symptoms Methadone HCl 90 mg 09/21/18 09:30 09/24/18 08:44 Dolophine PO 90 mg DAILY JULIANE Administration Methadone HCl 5 mg 09/21/18 09:30 09/24/18 08:43 Dolophine PO 5 mg DAILY JULIANE Administration Methylprednisolone Sodium Succinate 60 mg 09/20/18 18:00 09/24/18 11:37 Solu-Medrol IV 60 mg Q6HR JULIANE Administration Metoprolol Tartrate 50 mg 09/21/18 09:00 09/24/18 08:45 Lopressor PO 50 mg BID JULIANE Administration Miscellaneous Information 1 each 09/23/18 13:41 Rx Info: Iv Contrast Was Given MISCELLANE 09/25/18 13:41 DAILY PRN Per Protocol Montelukast Sodium 10 mg 09/21/18 21:00 09/23/18 20:37 Singulair PO 10 mg HS JULIANE Administration Nicotine 1 patch 09/21/18 17:15 09/24/18 08:43 Habitrol 21mg/24hr Patch TRANSDERM 1 patch DAILY JULIANE Administration Nitroglycerin 0.4 mg 09/22/18 09:11 Nitrostat SUBLINGUAL Q5M PRN Chest Pain Sacubitril/Valsartan 1 each 09/24/18 21:00 Entresto 24 Mg-26 Mg Tablet PO BID JULIANE Sodium Chloride 10 ml 09/20/18 21:00 09/24/18 08:51 Saline Flush IV Not Given BID JULIANE Sodium Chloride 10 ml 09/20/18 21:00 09/24/18 08:51 Saline Flush IV Not Given BID JULIANE Spironolactone 25 mg 09/23/18 09:00 09/24/18 08:44 Aldactone PO 25 mg DAILY JULIANE Administration Intake and Output 09/24/18 09/24/18 09/24/18 06:59 14:59 22:59 Intake Total 480 Output Total 600 Balance -600 480 Intake: Oral 480 Output: Urine 600 Other: Voiding Method Urinal # Voids 2 Weight 89 kg 09/24/18 05:43 09/24/18 05:43
[2018-09-24 16:49] LABS: Glucose,Whole Blood 132 mg/dL (75-99)
[2018-09-24 17:29] LABS: T4, Free (Free Thyroxine) 0.8 ng/dL (0.78-2.19)
[2018-09-24 20:26] LABS: Glucose,Whole Blood 123 mg/dL (75-99)
[2018-09-24] MEDS: SACUBITRIL/VALSARTAN 24 MG-26 MG TABLET PO SCH (20:36)
[2018-09-24] MEDS: MONTELUKAST 10 MG TAB PO SCH (20:36)
[2018-09-24] MEDS: ALPRAZolam 0.25 MG TAB PO PRN (23:08)
[2018-09-25 06:07] LABS: Glucose,Whole Blood 209 mg/dL (75-99)
[2018-09-25] MEDS: INSULIN ASPART (NovoLOG) 100 UNIT/ML VIAL SQ SCH ×4 (06:33→21:14)
[2018-09-25] MEDS: methylPREDNISolone SOD SUCCI 125 MG/2 ML VIAL IV SCH ×3 (06:33→17:27)
[2018-09-25] MEDS: IPRATROPIUM-ALBUTEROL 3 ML NEB INHALATION SCH ×4 (07:56→19:27)
[2018-09-25] MEDS: BUDESONIDE 0.5 MG/2 ML NEBU INHALATION SCH ×2 (07:56→19:26)
[2018-09-25] MEDS: ATORVASTATIN 40 MG TAB PO SCH (08:27)
[2018-09-25] MEDS: DOXYCYCLINE 100 MG CAP PO SCH ×2 (08:27→21:15)
[2018-09-25] MEDS: FAMOTIDINE 20 MG TAB PO SCH (08:27)
[2018-09-25] MEDS: ASPIRIN 81 MG PO SCH (08:27)
[2018-09-25] MEDS: FUROSEMIDE 40 MG TAB PO SCH (08:27)
[2018-09-25] MEDS: HEPARIN SODIUM,PORCINE 5,000 UNIT/ML 1 ML VIAL SQ SCH ×2 (08:30→21:15)
[2018-09-25] MEDS: METHADONE 10 MG TAB PO SCH (08:31)
[2018-09-25] MEDS: METHADONE 5 MG TAB PO SCH (08:31)
[2018-09-25] MEDS: NICOTINE 21MG/24HR PATCH TRANSDERM SCH (08:32)
[2018-09-25] MEDS: SACUBITRIL/VALSARTAN 24 MG-26 MG TABLET PO SCH ×2 (08:32→21:15)
[2018-09-25] MEDS: METOPROLOL TARTRATE 50 MG TAB PO SCH (08:32)
[2018-09-25] MEDS: SPIRONOLACTONE 25 MG TAB PO SCH (08:33)
[2018-09-25 10:08] LABS: Anion Gap 5 mmol/L; Blood Urea Nitrogen 29 mg/dL (9-20); Calcium 8.7 mg/dL (8.4-10.2); Carbon Dioxide 34 mmol/L (22-30); Chloride 99 mmol/L (98-107); Glucose 197 mg/dL (74-99); Potassium 4.4 mmol/L (3.5-5.1); Sodium 138 mmol/L (137-145)
--- NOTE | 2018-09-25 10:28 | P.PN ---
Subjective Progress Note Date: 09/25/18 This is a 57-year-old gentleman who follows regularly with Dr. Ch in the office. He has a known history of coronary artery disease with prior stenting of the circumflex in 2013, in August of last year he underwent coronary bypass grafting surgery at which time he had a JACKSON to the LAD, reverse saphenous vein graft from the aorta to the diagonal artery, reverse saphenous vein graft from the aorta to the posterior descending artery, history also of hypertension, hyperlipidemia, emphysema, nicotine dependence. Patient has known ischemic cardio myopathy with a documented ejection fraction of 20-25%, Dr. Ch has spoke with him in the past regarding AICD implantation and the patient has refused. He presented to the hospital on this occasion with symptoms of chest discomfort and fairly sudden onset of shortness of breath. He underwent a cardiac catheterization yesterday by Dr. Ch which revealed severe stenosis in the LAD with occluded first obtuse marginal branch, chronically occluded mid right coronary artery and mild to moderate disease in the proximal circumflex, patent JACKSON to the LAD, patent saphenous vein graft to the diagonal branch and right PDA, with severely impaired left ventricular systolic function. He was advised maximum medical therapy, with the recommen dation to reconsider AICD, bi-V implant. Patient was seen and examined this morning, denied any chest pain or difficulty in breathing. He is quite nervous about going home because of the severity of his symptoms on presentation here. Patient wishes to proceed with having implant of AICD. For this reason, Dr. Lai recommended a consultation with Dr. Green. Dr. Green did come up to see the patient this afternoon, explained the bi-V AICD implant and procedure to the patient, we also discontinue the Cozaar and will startEntresto from this evening. Patient is willing to proceed with the implant, Dr. Green we'll review his schedule and plan on that sometime this week. Blood pressure 118/80 with a heart rate in the 70s today. White blood cell count 7.9, hemoglobin 12.8, platelet count 194. Sodium 137, potassium 5.1, BUN 36 and creatinine 0.8. AST 80 ALT 138, alk phos 56. We will check a TSH level. 09/25/2018 Patient was seen and examined this morning, overall feels much better today. Still continues to have wheezing however overall he states his breathing is approved. TSH level came back at 0.156, free T4 0.8. Sodium 138, potassium 4.4, BUN 29 and creatinine 0.7. Blood pressure 100/60 with a heart rate of 60, 95% on 5 L of oxygen. Patient was initiated yesterday on Entresto. He will also undergo biventricular ICD implantation, physiologic septal pacing for m anagement of heart failure and primary prevention of sudden cardiac . Exact timing of this study, yet to be determined. Objective - Vital Signs Vital signs: Vital Signs Temp 97.6 F 09/25/18 08:00 Pulse 60 09/25/18 08:10 Resp 16 09/25/18 08:00 BP 101/62 09/25/18 08:00 Pulse Ox 95 09/25/18 08:00 Intake & Output 09/24/18 09/25/18 09/25/18 18:59 06:59 18:59 Intake Total 1200 360 Output Total 300 300 Balance 900 60 Weight 88.5 kg Intake: Oral 1200 360 Output: Urine 300 300 Other: Voiding Method Urinal Urinal # Voids 1 1 - Exam PHYSICAL EXAMINATION: GENERAL: 57-year-old gentleman in no acute distress at the time of my examination HEENT: Head is atraumatic, normocephalic. Pupils equal, round. Sclera anicteric. Conjunctiva are clear. Mucous membranes of the mouth are moist. Neck is supple. There is elevated jugular venous pressure to the angle of the jaw. No carotid bruit is heard. HEART EXAMINATION: Heart S1, S2 normal. Systolic murmur suggestive of mitral insuff CHEST EXAMINATION: Lungs reveal improvement in air entry to bilateral bases. ABDOMEN: Mildly distended , nontender. Bowel sounds are heard. No organomegaly noted. EXTREMITIES: 2+ peripheral pulses with trace evidence of peripheral edema and no calf tenderness noted. Right groin soft, no evidence of any hematoma. NEUROLOGIC patient is awake, alert and orientedX3 - Labs CBC & Chem 7: 09/24/18 05:43 09/25/18 09:37 Labs: Abnormal Lab Results - Last 24 Hours (Table) 09/24/18 09/24/18 09/24/18 Range/Units 05:43 11:29 15:41 Carbon Dioxide (22-30) mmol/L BUN (9-20) mg/dL Glucose (74-99) mg/dL POC Glucose (mg/dL) 160 H (75-99) mg/dL TSH 0.156 L 0.156 L (0.465-4.680) mIU/L 09/24/18 09/24/18 09/25/18 Range/Units 16:46 20:24 06:06 Carbon Dioxide (22-30) mmol/L BUN (9-20) mg/dL Glucose (74-99) mg/dL POC Glucose (mg/dL) 132 H 123 H 209 H (75-99) mg/dL TSH (0.465-4.680) mIU/L 09/25/18 Range/Units 09:37 Carbon Dioxide 34 H (22-30) mmol/L BUN 29 H (9-20) mg/dL Glucose 197 H (74-99) mg/dL POC Glucose (mg/dL) (75-99) mg/dL TSH (0.465-4.680) mIU/L Assessment and Plan Plan: Assessment and Plan: #1 systolic congestive heart failure acute on chronic. Most recent echocardiogram with Doppler study was performed in August of this year which revealed an ejection fraction of 20-25%. #2 chest pain with known history of coronary artery disease with prior stent placement of the RCA and circumflex in 2013 subsequently patient underwent coronary artery bypass grafting surgery in August of 2017. Cardiac catheterization performed yesterday revealed severe stenosis in the LAD with occluded first obtuse marginal branch, chronically occluded mid right coronary artery, mild to moderate disease in the proximal circumflex, patent JACKSON to the LAD, saphenous vein graft to the diagonal branch and right PDA patent, severely impaired left ventricular systolic function. #3 hypertension #4 hyperlipidemia #5 nicotine dependence #6 COPD #7 mildly abnormal liver functions, likely secondary to congestion. #8 ischemic cardiomyopathy, documented ejection fraction of 20-25%. Plan We will discontinue the metoprolol today and start the patient on Coreg. Apolonia ent will undergo implantation of a bi-V AICD during this hospitalization. DNP note has been reviewed, I agree with a documented findings and plan of care. Patient was seen and examined.
[2018-09-25 11:31] LABS: Glucose,Whole Blood 207 mg/dL (75-99)
--- NOTE | 2018-09-25 13:28 | P.PN ---
Subjective Progress Note Date: 09/25/18 This is a pleasant 57-year-old male who presented to the emergency department with complaints of shortness of breath. Patient stated that the symptoms occurred while he was on his way home from the methadone clinic after receiving his daily dose of methadone of 100 mg. During the ride home the patient experienced shortness of breath where he felt like he was unable to catch his breath and unable to talk during that time. States that he had an increase to his methadone within the last week. Patient has been utilizing methadone for pain control for approximately the last 2 months. He states that the symptoms have been present for a couple days however they're worse at night and worsened during the drive home. Patient has history of COPD he is on chronic oxygen at home at 5 L which he normally wears only at night. Patient states that he only requires oxygen when he is sitting and not doing anything and does not utilize it with activity. Approximately 6 months ago patient exper ienced similar symptoms and also had a desperation of congestive heart failure where he was found to have an EF of 20-25% at that time. he was advised at that time to have a defibrillator placed, however due to his uncontrolled pain he declined. Patient states that now that his pain is under control he is acceptable for reevaluation for a defibrillator. At this time patient is resting comfortably in bed with O2 at 5 L via nasal cannula. Patient states that the shortness of breath has improved. He is not having any chest pain, leg pain or leg swelling. Patient denies any fever or chills at this time. Patient does have an occasional cough that is nonproductive. patient examined bedside patient does report insight E specially at bedtime as he is unable to catch her breath. He declined BiPAP or CPAP as patient has sinus obstruction and cannot tolerate high pressures. Apparently patient had multiple episodes of V. tach up to 8 beats yesterday evening with thesymptoms. EKG was ordered that showed sinus bradycardia with left axis deviation and intraventricular conduction delay. Patient does have significantly low ejection fraction on previous echo. Cardiology being cons ulted for magnesium was ordered that was normal. Patient does have history of coronary artery disease with prior angioplasties and had bypass surgery in 2018. Patient is undergoing cardiac cath tomorrow to rule out unstable angina. Apparently patient is on 6 L of oxygen by nasal cannula which is close to patient's baseline. Heart rate 58, blood pressure 112/79 saturating at 96 on 4 L./Suggestive of WBC 15.5 creatinine 0.98 glucose ranging from 150-234 continue sliding scale. Pulmonary evaluate the patient continues to be on steroids for COPD exacerbation and irises for systolic congestive heart failure with 40 IV daily 09/23: Patient still having mild dyspnea and shortness of breath is scheduled for heart catheter today with cardiology based on the severe cardiomyopathy of not clear etiology along with elevated troponin if he is still require any angioplasty and stent placement patient will be on dual antiplatelet agent and higher dose of statin for secondary prevention. Also patient remain on treatment for COPD and CHF remain on IV diuretics. also pain has been well controlled lately. 09/24: Patient is found ambulating in the hallway at 5 L nasal cannula. Pulse ox is 98%, patient is been afebrile, heart rate in the 60s and 70s Patient states that his breathing does not seem to be any better and he still has some congestion. He is using incentive spirometry at 1500 mils. Patient is requesting Xanax for anxiety which will be admitted. Heart catheterization done yesterday with Dr. Ch reveals severe stenosis of the LAD with occluded first obtuse marginal branch, chronically occluded mid right coronary artery, mild to moderate disease of the proximal left circumflex, patent JACKSON to LAD, patent saphenous vein graft to the diagonal branch and to the right PDA, severely impaired left ventricular systolic function. Plan to maximize medical therapy and reevaluate for ICD biventricular implantation. Ejection fraction 10-15%, 3+ mitral regurgitation. Echocardiogram reveals EF of less than 20%, left ventricular severely dilated, mild to moderate mitral regurgitation, mild tricuspid regurgitation, borderline pulmonary artery hypertension. 09/25: Patient has been seen by Dr. Green for an EP consult and recommends switching to long acting metoprolol or carvedilol along with Entresto, biventricular ICD implantation, smoking cessation, low-salt diet and compliance, monitor potassium while on Entresto and Aldactone. TSH 0.156 and free T4 0.8. D-dimer was 0.23. Patient states that he has plan for ICD implantation during this hospitalization which will be scheduled later in the week. Review of system: Constitutional: No fever, no chills, no night sweats. No weight change. No weakness, fatigue or lethargy. No daytime sleepiness. EENT: No headache. No blurred vision or double vision, no loss of vision. No loss of Hearing, no ringing in the ears, no dizziness. No nasal drainage or congestion. No epistaxis. No sore throat. Lungs: Reports shortness of breath, reports cough, no sputum production. No wheezing. Reports dyspnea with exertion Cardiovascular: No chest pain, no lower extremity edema. No palpitations. Positive paroxysmal nocturnal dyspnea. Positive orthopnea. No lightheadedness or dizziness. No syncopal episodes. Abdominal: no abdominal discomfort. No nausea, vomiting. no diarrhea. No co nstipation. No bloody or tarry stools. improved loss of appetite. Genitourinary: No dysuria, increased frequency, urgency. No urinary retention. Musculoskeletal: No myalgias. No muscle weakness, no gait dysfunction, no frequent falls. Reports back pain. No neck pain. Integumentary: No wounds, no lesions. No rash or pruritus. No unusual bruising. No change in hair or nails. Neurologic: No aphasia. No facial droop. No change in mentation. No head injury. No headache. No paralysis. No paresthesia. Psychiatric: No depression. No anxiety. No mood swings. Endocrine: No abnormal blood sugars. No weight change. No excessive sweating or thirst. Physical examination: General Appearance: Alert, cooperative, no distress, appears stated age.patient sitting on the edge of the bed and appears to be in no respiratory distress. Neck HEENT: Supple, no lymphadenopathy, no thyroid enlargement, no carotid bruits. Lungs: Decreased breath sound bilaterally with fine rhonchi positive mild expiratory wheezes and slight crackles in the bases. Chest Wall: Decrease expansion with deep inspiration no tenderness and no deformity was found on exam, no costochondral pain or discomfort. Heart: Regular rate and rhythm, S1, S2 positive S3 positive JVD, no murmur, rub or gallop. Back: Symmetric, no curvature, ROM normal, no CVA tenderness. Abdomen: Soft, non-tender, bowel sounds active all four quadrants, no masses, no organomegaly. Extremities: Extremities normal, atraumatic, no cyanosis or edema. Pulses: 2+ and symmetric. Skin: Skin color, texture, tugor normal, no rashes or lesions. Neurologic: Alert oriented x3 cranial nerves II through XII intact, no motor deficit, no abnormal balance or gait. Assessment and Plan Plan: 1 acute respiratory distress: Combination of COPD exacerbation, acute systolic heart failure, non-ST elevated myocardial infarction, severe ischemiccardiomyopathy. Cardiology consult, pulmonary consult appreciated. 2 non-ST elevated myocardial infarction and ischemic cardiomyopathy. cardiology consult above. Continue medical management. Plan for AICD implantation. 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 4 COPD with mild exacerbation: Continue patient on steroid along with updraft treatment and O2. 5 chronic pain management: Decrease methadone from [place] to 95 mg daily he seems to tolerated very well currently. 6 hypertension: Well controlled on Lopressor 50 mg twice a day. 7 hyperlipidemia: Remain on atorvastatin 40 mg daily. 8 chronic hypoxic respiratory failure on home O2. CODE STATUS: Full code. Discharge plan: Home Impression and plan of care have been directed as dictated by the signing physician. Isabelle Andersen nurse practitioner acting as scribe for signing physician. Objective - Vital Signs Vital signs: Vital Signs Temp 98.3 F 09/25/18 04:00 Pulse 57 L 09/25/18 07:59 Resp 20 09/25/18 04:00 BP 115/69 09/25/18 04:00 Pulse Ox 95 09/25/18 07:59 Intake & Output 09/24/18 09/25/18 09/25/18 18:59 06:59 18:59 Intake Total 1200 Output Total 300 Balance 900 Weight 88.5 kg Intake: Oral 1200 Output: Urine 300 Other: Voiding Method Urinal Urinal # Voids 1 1 - Labs CBC & Chem 7: 09/24/18 05:43 09/25/18 09:37 Labs: Abnormal Lab Results - Last 24 Hours (Table) 09/24/18 09/24/18 09/24/18 Range/Units 05:43 11:29 15:41 POC Glucose (mg/dL) 160 H (75-99) mg/dL TSH 0.156 L 0.156 L (0.465-4.680) mIU/L 09/24/18 09/24/18 09/25/18 Range/Units 16:46 20:24 06:06 POC Glucose (mg/dL) 132 H 123 H 209 H (75-99) mg/dL TSH (0.465-4.680) mIU/L
[2018-09-25 17:03] LABS: Glucose,Whole Blood 159 mg/dL (75-99)
[2018-09-25] MEDS: CARVEDILOL 3.125 MG TAB PO SCH (17:26)
[2018-09-25 20:08] LABS: Glucose,Whole Blood 217 mg/dL (75-99)
[2018-09-25] MEDS: MONTELUKAST 10 MG TAB PO SCH (21:15)
[2018-09-25] MEDS: ALPRAZolam 0.25 MG TAB PO PRN (21:15)
[2018-09-26] MEDS: methylPREDNISolone SOD SUCCI 125 MG/2 ML VIAL IV SCH ×5 (00:22→22:18)
[2018-09-26 05:48] LABS: Glucose,Whole Blood 238 mg/dL (75-99)
[2018-09-26] MEDS: INSULIN ASPART (NovoLOG) 100 UNIT/ML VIAL SQ SCH ×4 (06:18→22:09)
[2018-09-26] MEDS: CARVEDILOL 3.125 MG TAB PO SCH ×2 (06:19→18:03)
[2018-09-26 06:50] LABS: ALT 81 U/L (21-72); AST 22 U/L (17-59); Albumin 3.3 g/dL (3.5-5.0); Alkaline Phosphatase 64 U/L (38-126); Anion Gap 4 mmol/L; Blood Urea Nitrogen 32 mg/dL (9-20); Calcium 8.8 mg/dL (8.4-10.2); Carbon Dioxide 35 mmol/L (22-30); Chloride 96 mmol/L (98-107); Glucose 177 mg/dL (74-99); Potassium 4.7 mmol/L (3.5-5.1); Sodium 135 mmol/L (137-145); Total Bilirubin 0.4 mg/dL (0.2-1.3); Total Protein 5.6 g/dL (6.3-8.2)
[2018-09-26] MEDS: IPRATROPIUM-ALBUTEROL 3 ML NEB INHALATION SCH ×4 (07:23→19:17)
[2018-09-26] MEDS: BUDESONIDE 0.5 MG/2 ML NEBU INHALATION SCH ×2 (07:23→19:17)
[2018-09-26] MEDS: ASPIRIN 81 MG PO SCH (08:32)
[2018-09-26] MEDS: FAMOTIDINE 20 MG TAB PO SCH (08:33)
[2018-09-26] MEDS: HEPARIN SODIUM,PORCINE 5,000 UNIT/ML 1 ML VIAL SQ SCH ×2 (08:33→20:43)
[2018-09-26] MEDS: METHADONE 10 MG TAB PO SCH (08:33)
[2018-09-26] MEDS: DOXYCYCLINE 100 MG CAP PO SCH ×2 (08:33→20:43)
[2018-09-26] MEDS: FUROSEMIDE 40 MG TAB PO SCH (08:33)
[2018-09-26] MEDS: ATORVASTATIN 40 MG TAB PO SCH (08:33)
[2018-09-26] MEDS: SACUBITRIL/VALSARTAN 24 MG-26 MG TABLET PO SCH ×2 (08:34→20:43)
[2018-09-26] MEDS: METHADONE 5 MG TAB PO SCH (08:34)
[2018-09-26] MEDS: NICOTINE 21MG/24HR PATCH TRANSDERM SCH (08:34)
[2018-09-26] MEDS: SPIRONOLACTONE 25 MG TAB PO SCH (08:34)
[2018-09-26 12:16] LABS: Glucose,Whole Blood 122 mg/dL (75-99)
--- NOTE | 2018-09-26 14:43 | P.PN ---
Subjective Progress Note Date: 09/26/18 This is a pleasant 57-year-old male who presented to the emergency department with complaints of shortness of breath. Patient stated that the symptoms occurred while he was on his way home from the methadone clinic after receiving his daily dose of methadone of 100 mg. During the ride home the patient experienced shortness of breath where he felt like he was unable to catch his breath and unable to talk during that time. States that he had an increase to his methadone within the last week. Patient has been utilizing methadone for pain control for approximately the last 2 months. He states that the symptoms have been present for a couple days however they're worse at night and worsened during the drive home. Patient has history of COPD he is on chronic oxygen at home at 5 L which he normally wears only at night. Patient states that he only requires oxygen when he is sitting and not doing anything and does not utilize it with activity. Approximately 6 months ago patient exper ienced similar symptoms and also had a desperation of congestive heart failure where he was found to have an EF of 20-25% at that time. he was advised at that time to have a defibrillator placed, however due to his uncontrolled pain he declined. Patient states that now that his pain is under control he is acceptable for reevaluation for a defibrillator. At this time patient is resting comfortably in bed with O2 at 5 L via nasal cannula. Patient states that the shortness of breath has improved. He is not having any chest pain, leg pain or leg swelling. Patient denies any fever or chills at this time. Patient does have an occasional cough that is nonproductive. patient examined bedside patient does report insight E specially at bedtime as he is unable to catch her breath. He declined BiPAP or CPAP as patient has sinus obstruction and cannot tolerate high pressures. Apparently patient had multiple episodes of V. tach up to 8 beats yesterday evening with thesymptoms. EKG was ordered that showed sinus bradycardia with left axis deviation and intraventricular conduction delay. Patient does have significantly low ejection fraction on previous echo. Cardiology being cons ulted for magnesium was ordered that was normal. Patient does have history of coronary artery disease with prior angioplasties and had bypass surgery in 2018. Patient is undergoing cardiac cath tomorrow to rule out unstable angina. Apparently patient is on 6 L of oxygen by nasal cannula which is close to patient's baseline. Heart rate 58, blood pressure 112/79 saturating at 96 on 4 L./Suggestive of WBC 15.5 creatinine 0.98 glucose ranging from 150-234 continue sliding scale. Pulmonary evaluate the patient continues to be on steroids for COPD exacerbation and irises for systolic congestive heart failure with 40 IV daily 09/23: Patient still having mild dyspnea and shortness of breath is scheduled for heart catheter today with cardiology based on the severe cardiomyopathy of not clear etiology along with elevated troponin if he is still require any angioplasty and stent placement patient will be on dual antiplatelet agent and higher dose of statin for secondary prevention. Also patient remain on treatment for COPD and CHF remain on IV diuretics. also pain has been well controlled lately. 09/24: Patient is found ambulating in the hallway at 5 L nasal cannula. Pulse ox is 98%, patient is been afebrile, heart rate in the 60s and 70s Patient states that his breathing does not seem to be any better and he still has some congestion. He is using incentive spirometry at 1500 mils. Patient is requesting Xanax for anxiety which will be admitted. Heart catheterization done yesterday with Dr. Ch reveals severe stenosis of the LAD with occluded first obtuse marginal branch, chronically occluded mid right coronary artery, mild to moderate disease of the proximal left circumflex, patent JACKOSN to LAD, patent saphenous vein graft to the diagonal branch and to the right PDA, severely impaired left ventricular systolic function. Plan to maximize medical therapy and reevaluate for ICD biventricular implantation. Ejection fraction 10-15%, 3+ mitral regurgitation. Echocardiogram reveals EF of less than 20%, left ventricular severely dilated, mild to moderate mitral regurgitation, mild tricuspid regurgitation, borderline pulmonary artery hypertension. 09/25: Patient has been seen by Dr. Green for an EP consult and recommends switching to long acting metoprolol or carvedilol along with Entresto, biventricular ICD implantation, smoking cessation, low-salt diet and compliance, monitor potassium while on Entresto and Aldactone. TSH 0.156 and free T4 0.8. D-dimer was 0.23. Patient states that he has plan for ICD implantation during this hospitalization which will be scheduled later in the week. 09/26: Patient is scheduled for AICD implantation this afternoon. Patient denies any chest pain or shortness of breath. He remains on oxygen. Patient is known to have home oxygen already set up. Repeat lab work reveals creatinine 0.76, BUN 32, sodium 135, potassium 4.7, chloride 96, CO2 35, ALT is 81. He has been afebrile, heart rate in the 60s and 70s, blood pressure 120/86 and pulse ox 96% on 5 L nasal cannula. phototypesetting equipment monitor has been sinus rhythm. Review of system: Constitutional: No fever, no chills, no night sweats. No weight change. No weakness, fatigue or lethargy. EENT: No headache. No blurred vision or double vision, no loss of vision. No loss of Hearing, no ringing in the ears, no dizziness. No nasal drainage or congestion. No epistaxis. No sore throat. Lungs: Reports shortness of breath, reports cough, no sputum production. No wheezing. Reports dyspnea with exertion Cardiovascular: No chest pain, no lower extremity edema. No palpitations. Positive paroxysmal nocturnal dyspnea. Positive orthopnea. No lightheadedness or dizziness. No syncopal episodes. Abdominal: no abdominal discomfort. No nausea, vomiting. no diarrhea. No constipation. No bloody or tarry stools. improved loss of appetite. Genitourinary: No dysuria, increased frequency, urgency. No urinary retention. Musculoskeletal: No myalgias. No muscle weakness, no gait dysfunction, no frequent falls. Reports back pain. No neck pain. Integumentary: No wounds, no lesions. No rash or pruritus. No unusual bruising. No change in hair or nails. Neurologic: No aphasia. No facial droop. No change in mentation. No head injury. No headache. No paralysis. No paresthesia. Psychiatric: No depression. No anxiety. No mood swings. Endocrine: No abnormal blood sugars. No weight change. No excessive sweating or thirst. Physical examination: General Appearance: Alert, cooperative, no distress, appears stated age. Patient sitting up in bed bed and appears to be in no respiratory distress at rest. Neck HEENT: Supple, no lymphadenopathy, no thyroid enlargement, no carotid bruits. Lungs: Decreased breath sound bilaterally with fine rhonchi positive mild expiratory wheezes and slight crackles in the bases. Chest Wall: Decrease expansion with deep inspiration no tenderness and no deform ity was found on exam, no costochondral pain or discomfort. Heart: Regular rate and rhythm, S1, S2 positive S3 positive JVD, no murmur, rub or gallop. Back: Symmetric, no curvature, ROM normal, no CVA tenderness. Abdomen: Soft, non-tender, bowel sounds active all four quadrants, no masses, no organomegaly. Extremities: Extremities normal, atraumatic, no cyanosis or edema. Pulses: 2+ and symmetric. Skin: Skin color, texture, tugor normal, no rashes or lesions. Neurologic: Alert oriented x3 cranial nerves II through XII intact, no motor deficit, no abnormal balance or gait. Assessment and Plan Plan: 1 acute respiratory distress: Combination of COPD exacerbation, acute systolic heart failure, non-ST elevated myocardial infarction, severe ischemic cardiomyopathy. Cardiology consult, pulmonary consult appreciated. 2 non-ST elevated myocardial infarction and ischemic cardiomyopathy. cardiology consult above. Continue medical management. Plan for AICD implantation this afternoon. 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 4 COPD with mild exacerbation: Continue patient on steroid along with updraft treatment and O2. 5 chronic pain management: Decrease methadone from [place] to 95 mg daily he seems to tolerated very well currently. 6 hypertension: Well controlled on Lopressor 50 mg twice a day. 7 hyperlipidemia: Remain on atorvastatin 40 mg daily. 8 chronic hypoxic respiratory failure on home O2. CODE STATUS: Full code. Discharge plan: Home in the next 24 hours Impression and plan of care have been directed as dictated by the signing physician. Isabelle Andersen nurse practitioner acting as scribe for signing physician. Objective - Vital Signs Vital signs: Vital Signs Temp 97.4 F L 09/26/18 07:52 Pulse 76 09/26/18 07:52 Resp 18 09/26/18 07:52 BP 128/86 09/26/18 07:52 Pulse Ox 96 09/26/18 07:52 Intake & Output 09/25/18 09/26/18 09/26/18 18:59 06:59 18:59 Intake Total 730 Output Total 600 450 Balance 130 -450 Weight 88.4 kg Intake: IV 10 0.9 10 Oral 720 Output: Urine 600 450 - Labs CBC & Chem 7: 09/24/18 05:43 09/26/18 05:35 Labs: Abnormal Lab Results - Last 24 Hours (Table) 09/25/18 09/25/18 09/25/18 Range/Units 09:37 11:27 16:45 Sodium (137-145) mmol/L Chloride (98-107) mmol/L Carbon Dioxide 34 H (22-30) mmol/L BUN 29 H (9-20) mg/dL Glucose 197 H (74-99) mg/dL POC Glucose (mg/dL) 207 H 159 H (75-99) mg/dL ALT (21-72) U/L Total Protein (6.3-8.2) g/dL Albumin (3.5-5.0) g/dL 09/25/18 09/26/18 09/26/18 Range/Units 20:06 05:35 05:44 Sodium 135 L (137-145) mmol/L Chloride 96 L (98-107) mmol/L Carbon Dioxide 35 H (22-30) mmol/L BUN 32 H (9-20) mg/dL Glucose 177 H (74-99) mg/dL POC Glucose (mg/dL) 217 H 238 H (75-99) mg/dL ALT 81 H (21-72) U/L Total Protein 5.6 L (6.3-8.2) g/dL Albumin 3.3 L (3.5-5.0) g/dL
[2018-09-26 15:17] VITALS: BMI 29.6
[2018-09-26] MEDS ORDERED: LIDOCAINE 1% INJ 10MG/ML (20 ML MDV) ONE ×2 (15:45→15:46)
[2018-09-26] MEDS ORDERED: SODIUM CHLORIDE 0.9% 500 ML 500 ML IV ONE (15:51)
[2018-09-26] MEDS ORDERED: MIDAZOLAM 2 MG/2 ML VIAL ONE (15:51)
[2018-09-26] MEDS ORDERED: IOPAMIDOL-250 50ML BTL IV ONE (16:09)
[2018-09-26] MEDS ORDERED: ceFAZolin IN SWFI 2 GM/20 ML SYRINGE IVP STA (16:15)
[2018-09-26] MEDS ORDERED: ceFAZolin 1,000 MG in SODIUM CHLORIDE 0.9% IRRIGATIO 250 ML IRRIGATION ONE (16:16)
[2018-09-26] MEDS: LIDOCAINE 1% INJ 10MG/ML (20 ML MDV) SQ ONE ×2 (16:50→17:01)
[2018-09-26] MEDS ORDERED: LIDOCAINE 1% INJ 10MG/ML (20 ML MDV) SQ ONE (17:18)
[2018-09-26] MEDS ORDERED: ACETAMINOPHEN IV (For NPO) 1,000 MG in EMPTY BAG 1 BAG IVPB ONE (18:54)
[2018-09-26] MEDS ORDERED: ACETAMINOPHEN TAB 325 MG TAB PO PRN (18:54)
[2018-09-26 20:10] LABS: Glucose,Whole Blood 256 mg/dL (75-99)
[2018-09-26] MEDS: HYDROcodone/APAP 5-325MG 1 EACH TAB PO PRN (20:43)
[2018-09-26] MEDS: ALPRAZolam 0.25 MG TAB PO PRN (20:43)
[2018-09-26] MEDS: MONTELUKAST 10 MG TAB PO SCH (20:44)
[2018-09-26] MEDS: FLUTICASONE 50MCG/SPRAY NASAL 16GM EA NOSTRIL PRN (22:11)
[2018-09-26] MEDS: ceFAZolin IN SWFI 2 GM/20 ML SYRINGE IVP SCH (22:14)
[2018-09-27] MEDS: ALPRAZolam 0.25 MG TAB PO PRN (00:20)
[2018-09-27] MEDS: HYDROcodone/APAP 5-325MG 1 EACH TAB PO PRN ×4 (00:20→14:11)
--- NOTE | 2018-09-27 00:30 | PCN ---
PROCEDURE NOTE Beto Goodman is a 57-year-old male patient who has severe ischemic cardiomyopathy with a left bundle branch block pattern with severe heart failure symptoms who has chronic cardiomyopathy. His medications were maximized. He recently underwent coronary angiography and his grafts were patent. He has class 3 heart failure symptoms despite being on appropriate medical treatment. He is brought in for a biventricular ICD implantation. DESCRIPTION OF PROCEDURE: Patient was brought to the EP lab in a fasting state. Written informed consent was obtained prior to the procedure. The left shoulder area was prepped and draped as per protocol. 1% lidocaine was used for local anesthesia. A 4 cm incision was made parallel to the deltopectoral groove, about 1.5 cm medial to it. The incision was carried down to the level of the pectoralis muscle. A subfascial pocket was made. Hemostasis was assured. The left axillary vein was accessed at 3 separate points under fluoroscopy and via appropriately-sized introducer sheaths 3 leads were positioned. The atrial lead was a screw-in lead 52 cm in length, Medtronic model 5076 serial number [id number]. The P waves were 4.5 mV, pacing impedance 956 ohms. Pacing threshold 0.6 V at 0.5 milliseconds. 10 V test negative. The ICD lead was a Medtronic model #6935M 62 cm length and serial number [id number]. This was screwed in the RV septum just above the RV apex. R-waves were 18.6 mV, pacing impedance 718 ohms, pacing threshold 0.8 V at 0.5 milliseconds. 10 V test negative. The third lead was a Medtronic model ##3830, 69 cm in length and serial number [id number]. This was screwed in the His bundle area. The baseline QRS was a left bundle branch block with a QRS width of 144 milliseconds. Pacing the His bundle resulted in narrowing of the QRS with a QRS width of less than 120 milliseconds. Selective capture was noted and with the nonselective capture noted at 2.3 V at 1 millisecond. Complete loss of nonselective capture at 1 V at 1 millisecond. The leads were connected and the leads secured to the underlying pectoralis fascia using 2 nonabsorbable sutures. Pocket was irrigated with antibiotic solution. Leads were connected to the generator and ([facility] in model number SWDP0M9 serial number [id number]. The leads and generator were then placed in subfascial pocket. The wound was closed in 3 layers and dressed per protocol. RESULT: Successful biventricular ICD generator implant with physiologic septal pacing which resulted in narrowing of the QRS to less than 120 milliseconds with selective His bundle capture. The device was then programmed to an appropriate antitachycardia pacing cardioversion defibrillation, RV offset of 80 milliseconds. DDD mode at 50-130 ppm. AV delay of 160 milliseconds. Patient tolerated the procedure well without any acute complications. MMODL / IJN: [id number] /
--- NOTE | 2018-09-27 00:36 | LTR ---
DATE OF SERVICE: 09/26/2018 Dr. Jame Bautista Dear Dr. Bautista: Beto Goodman underwent a biventricular ICD with physiologic septal pacing/His bundle pacing. He has a baseline QRS width of 144 milliseconds with a left bundle branch block pattern, severe cardiomyopathy and severe heart failure symptoms. His medications were maximized. Coronary angiography revealed patent grafts. He underwent a biventricular ICD implantation with narrowing of the QRS to less than 120 milliseconds with His bundle pacing. Hopefully, this will improve his heart failure status. Thank you for entrusting us in the care of this patient. Warm regards, Sincerely, MMCARAL / GURMEETN: [id number] /
[2018-09-27] MEDS: methylPREDNISolone SOD SUCCI 125 MG/2 ML VIAL IV SCH ×2 (04:00→12:02)
[2018-09-27] MEDS: ceFAZolin IN SWFI 2 GM/20 ML SYRINGE IVP SCH ×2 (04:01→12:02)
[2018-09-27] MEDS: CARVEDILOL 3.125 MG TAB PO SCH (04:57)
[2018-09-27 06:46] LABS: Glucose,Whole Blood 124 mg/dL (75-99)
[2018-09-27] MEDS: INSULIN ASPART (NovoLOG) 100 UNIT/ML VIAL SQ SCH ×2 (06:46→11:58)
--- NOTE | 2018-09-27 08:35 | XR ---
EXAMINATION TYPE: XR chest 2V DATE OF EXAM: 09/27/2018 COMPARISON: Prior chest x-ray 09/20/2018 HISTORY: Lead placement check TECHNIQUE: Frontal and lateral views of the chest are obtained. FINDINGS: Intracardiac no evident pneumothorax or pleural effusion. Right hemidiaphragm remains elev ated, patient is post median sternotomy and the heart size is stable, enlarged. Generator is in left pectoral region, there are overlying cardiac leads. Defibrillator leads have been placed in the inter emigdio and are present appropriate positions in the right atrium and ventricle. IMPRESSION: No evident complication status post defibrillator placement.
[2018-09-27] MEDS: IPRATROPIUM-ALBUTEROL 3 ML NEB INHALATION SCH ×3 (08:36→17:04)
[2018-09-27] MEDS: BUDESONIDE 0.5 MG/2 ML NEBU INHALATION SCH (08:37)
[2018-09-27] MEDS: DOXYCYCLINE 100 MG CAP PO SCH (08:42)
[2018-09-27] MEDS: FAMOTIDINE 20 MG TAB PO SCH (08:42)
[2018-09-27] MEDS: METHADONE 10 MG TAB PO SCH (08:42)
[2018-09-27] MEDS: FUROSEMIDE 40 MG TAB PO SCH (08:42)
[2018-09-27] MEDS: SPIRONOLACTONE 25 MG TAB PO SCH (08:43)
[2018-09-27] MEDS: SACUBITRIL/VALSARTAN 24 MG-26 MG TABLET PO SCH (08:43)
[2018-09-27] MEDS: METHADONE 5 MG TAB PO SCH (08:43)
[2018-09-27] MEDS: ATORVASTATIN 40 MG TAB PO SCH (08:43)
[2018-09-27] MEDS: ASPIRIN 81 MG PO SCH (08:43)
[2018-09-27] MEDS: HEPARIN SODIUM,PORCINE 5,000 UNIT/ML 1 ML VIAL SQ SCH (08:44)
[2018-09-27] MEDS: NICOTINE 21MG/24HR PATCH TRANSDERM SCH (08:47)
[2018-09-27 08:54] VITALS: RESP 18
[2018-09-27 11:50] LABS: Glucose,Whole Blood 108 mg/dL (75-99)
--- NOTE | 2018-09-27 11:59 | CONS ---
HEIKE Pérez is a 57-year-old gentleman with history of coronary artery disease, ischemic cardiomyopathy with severe LV dysfunction who underwent recent cardiac catheterization and a Bi V AICD yesterday. This morning he appeared comfortable at rest. Vital signs are stable. Chest exam reveals good air entry bilaterally. Heart exam reveals first and second heart sounds. No gallop. Exam of extremities did not reveal edema. Peripheral pulses are felt. LABS: Show that the creatinine is 0.7, hemoglobin is 12.8. He had a chest x-ray this morning that did not show any evidence of pneumothorax. The patient will have the defibrillator checked this morning and if this is fine, he will be discharged home on all the therapies including aspirin, Lipitor, Coreg, Lasix and KEON inhibitors. ASSESSMENT: 1. Coronary artery disease. 2. Ischemic cardiomyopathy. 3. Status post Bi V AICD. PLAN: Patient is stable clinically. He is ready for discharge once the device is checked. MMODL / GURMEETN: [id number] /
[2018-09-27 12:10] VITALS: BP 95/65; TEMP 98.1
[2018-09-27 13:17] VITALS: PULSE 70
--- NOTE | 2018-09-27 14:39 | P.DS ---
Providers Date of admission: 09/20/18 12:44 Attending physician: Eloy Combs Consults: 09/21/18 10:26 Consult Physician Routine Consulting Provider: Jose L Gong Consult Reason/Comments: copd Do you want consulting provider notified?: Yes 09/21/18 12:15 Consult Physician Routine Consulting Provider: Cezar Vivas Consult Reason/Comments: Arrhythmia Do you want consulting provider notified?: Yes 09/24/18 13:21 Consult Physician Routine Consulting Provider: Cruz Green Consult Reason/Comments: aicd Do you want consulting provider notified?: Yes Primary care physician: [facility] Course: This is a pleasant 57-year-old male who presented to the emergency department with complaints of shortness of breath. Patient stated that the symptoms occurred while he was on his way home from the methadone clinic after receiving his daily dose of methadone of 100 mg. During the ride home the patient experienced shortness of breath where he felt like he was unable to catch his breath and unable to talk during that time. States that he had an increase to his methadone within the last week. Patient has been utilizing methadone for pain control for approximately the last 2 months. He states that the symptoms have been present for a couple days however they're worse at night and worsened during the drive home. Patient has history of COPD he is on chronic oxygen at home at 5 L which he normally wears only at night. Patient states that he only requires oxygen when he is sitting and not doing anything and does not utilize it with activity. Approximately 6 months ago patient experienced similar symptoms and also had a desperation of congestive heart failure where he was found to have an EF of 20-25% at that time. he was advised at that time to have a defibrillator placed, however due to his uncontrolled pain he declined. Patient states that now that his pain is under control he is acceptable for reevaluation for a defibrillator. At this time patient is resting comfortably in bed with O2 at 5 L via nasal cannula. Patient states that the shortness of breath has improved. He is not having any chest pain, leg pain or leg swelling. Patient denies any fever or chills at this time. Patient does have an occasional cough that is nonproductive. patient examined bedside patient does report insight E specially at bedtime as he is unable to catch her breath. He declined BiPAP or CPAP as patient has sinus obstruction and cannot tolerate high pressures. Apparently patient had multiple episodes of V. tach up to 8 beats yesterday evening with thesymptoms. EKG was ordered that showed sinus bradycardia with left axis deviation and intraventricular conduction delay. Patient does have significantly low ejection fraction on previous echo. Cardiology being consulted for magnesium was ordered that was normal. Patient does have history of coronary artery disease with prior angioplasties and had bypass surgery in 2018. Patient is undergoing cardiac cath tomorrow to rule out unstable angina. Apparently patient is on 6 L of oxygen by nasal cannula which is close to patient's baseline. Heart rate 58, blood pressure 112/79 saturating at 96 on 4 L./Suggestive of WBC 15.5 creatinine 0.98 glucose ranging from 150-234 continue sliding scale. Pulmonary evaluate the patient continues to be on steroids for COPD exacerbation and irises for systolic congestive heart failure with 40 IV daily 09/23: Patient still having mild dyspnea and shortness of breath is scheduled for heart catheter today with cardiology based on the severe cardiomyopathy of not clear etiology along with elevated troponin if he is still require any angioplasty and stent placement patient will be on dual antiplatelet agent and higher dose of statin for secondary prevention. Also patient remain on treatment for COPD and CHF remain on IV diuretics. also pain has been well controlled lately. 09/24: Patient is found ambulating in the hallway at 5 L nasal cannula. Pulse ox is 98%, patient is been afebrile, heart rate in the 60s and 70s Patient states that his breathing does not seem to be any better and he still has some congestion. He is using incentive spirometry at 1500 mils. Patient is requesting Xanax for anxiety which will be admitted. Heart catheterization done yesterday with Dr. Ch reveals severe stenosis of the LAD with occluded first obtuse marginal branch, chronically occluded mid right coronary artery, mild to moderate disease of the proximal left circumflex, patent JACKSON to LAD, patent saphenous vein graft to the diagonal branch and to the right PDA, severely impaired left ventricular systolic function. Plan to maximize medical therapy and reevaluate for ICD biventricular implantation. Ejection fraction 10-15%, 3+ mitral regurgitation. Echocardiogram reveals EF of less than 20%, left ventricular severely dilated, mild to moderate mitral regurgitation, mild tricuspid regurgitation, borderline pulmonary artery hypertension. 09/25: Patient has been seen by Dr. Green for an EP consult and recommends switching to long acting metoprolol or carvedilol along with Entresto, biventricular ICD implantation, smoking cessation, low-salt diet and compliance, monitor potassium while on Entresto and Aldactone. TSH 0.156 and free T4 0.8. D-dimer was 0.23. Patient states that he has plan for ICD implantation during this hospitalization which will be scheduled later in the week. 09/26: Patient is scheduled for AICD implantation this afternoon. Patient denies any chest pain or shortness of breath. He remains on oxygen. Patient is known to have home oxygen already set up. Repeat lab work reveals creatinine 0.76, BUN 32, sodium 135, potassium 4.7, chloride 96, CO2 35, ALT is 81. He has been afebrile, heart rate in the 60s and 70s, blood pressure 120/86 and pulse ox 96% on 5 L nasal cannula. clinical transplant coordinator has been sinus rhythm. 09/27: Post AICD has been doing very well no pneumothorax and a chest x-ray, patient had mild wheezes with tightness with cough was seen pulmonary and placed on medication including Solu-Medrol along with antibiotic which will be switched to oral and patient is going home today hopefully. A lot of medication change beside his AICD Entresto so Coreg anticoagulation and other all will be finalized for patient today. Review of system: Constitutional: No fever, no chills, no night sweats. No weight change. No weakness, fatigue or lethargy. EENT: No headache. No blurred vision or double vision, no loss of vision. No loss of Hearing, no ringing in the ears, no dizziness. No nasal drainage or congestion. No epistaxis. No sore throat. Lungs: Reports shortness of breath, reports cough, no sputum production. No wheezing. Reports dyspnea with exertion Cardiovascular: No chest pain, no lower extremity edema. No palpitations. Positive paroxysmal nocturnal dyspnea. Positive orthopnea. No lightheadedness or dizziness. No syncopal episodes. Abdominal: no abdominal discomfort. No nausea, vomiting. no diarrhea. No constipation. No bloody or tarry stools. improved loss of appetite. Genitourinary: No dysuria, increased frequency, urgency. No urinary retention. Musculoskeletal: No myalgias. No muscle weakness, no gait dysfunction, no frequent falls. Reports back pain. No neck pain. Integumentary: No wounds, no lesions. No rash or pruritus. No unusual bruising. No change in hair or nails. Neurologic: No aphasia. No facial droop. No change in mentation. No head injury. No headache. No paralysis. No paresthesia. Psychiatric: No depression. No anxiety. No mood swings. Endocrine: No abnormal blood sugars. No weight change. No excessive sweating or thirst. Physical examination: General Appearance: Alert, cooperative, no distress, appears stated age. Patient sitting up in bed bed and appears to be in no respiratory distress at rest. Neck HEENT: Supple, no lymphadenopathy, no thyroid enlargement, no carotid bruits. Lungs: Decreased breath sound bilaterally with fine rhonchi positive mild expiratory wheezes and slight crackles in the bases. Chest Wall: Decrease expansion with deep inspiration no tenderness and no deformity was found on exam, no costochondral pain or discomfort. Heart: Regular rate and rhythm, S1, S2 positive S3 positive JVD, no murmur, rub or gallop. Back: Symmetric, no curvature, ROM normal, no CVA tenderness. Abdomen: Soft, non-tender, bowel sounds active all four quadrants, no masses, no organomegaly. Extremities: Extremities normal, atraumatic, no cyanosis or edema. Pulses: 2+ and symmetric. Skin: Skin color, texture, tugor normal, no rashes or lesions. Neurologic: Alert oriented x3 cranial nerves II through XII intact, no motor deficit, no abnormal balance or gait. Assessment and Plan Plan: 1 acute respiratory distress: Combination of COPD exacerbation, acute systolic heart failure, non-ST elevated myocardial infarction, severe ischemic cardiomyopathy. Cardiology consult, pulmonary consult appreciated. 2 non-ST elevated myocardial infarction and ischemic cardiomyopathy. cardiology consult above. Continue medical management. post AICD implantation. 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 4 COPD with mild exacerbation: Continue patient on steroid along with updraft treatment and O2. 5 chronic pain management: Decrease methadone from [place] to 95 mg daily he seems to tolerated very well currently. 6 hypertension: Well controlled on Lopressor 50 mg twice a day. 7 hyperlipidemia: Remain on atorvastatin 40 mg daily. 8 chronic hypoxic respiratory failure on home O2. 9 severe bronchitis: Patient was started on doxycycline tapering dose of steroid at this point will continue DuoNeb and Pulmicort. Follow up with the pulmonary Discharge planning: Discharge patient today Patient Condition at Discharge: Serious Plan - Discharge Summary Discharge Rx Participant: No New Discharge Prescriptions: New Nitroglycerin Sl Tabs [Nitrostat] 0.4 mg SUBLINGUAL Q5M PRN #25 tab PRN Reason: Chest Pain Aspirin 81 mg PO DAILY chew Loratadine [Claritin] 10 mg PO DAILY PRN tab PRN Reason: Allergy Symptoms Carvedilol [Coreg] 3.125 mg PO BID-W/MEALS #60 tab Methadone [Dolophine] 5 mg PO DAILY tab Methadone [Dolophine] 90 mg PO DAILY tab Ipratropium-Albuterol Nebulize [Duoneb 0.5 mg-3 mg/3 ml Soln] 3 ml INHALATION RT-QID #120 ampul.neb Ipratropium-Albuterol Nebulize [Duoneb 0.5 mg-3 mg/3 ml Soln] 3 ml INHALATION RT-Q4H PRN #120 ampul.neb PRN Reason: Shortness Of Breath Or Wheezing Sacubitril/Valsartan [Entresto 24 mg-26 mg Tablet] 1 each PO BID #60 tablet Fluticasone Nasal [place] [Flonase Nasal [place]] 2 spray EA NOSTRIL DAILY PRN spr PRN Reason: Allergy Symptoms Nicotine 21Mg/24Hr Patch [Habitrol] 1 patch TRANSDERM DAILY #30 patch Famotidine [Pepcid] 20 mg PO DAILY #30 tab predniSONE 10 mg PO DIRECTED #40 tab Budesonide [Pulmicort] 0.5 mg INHALATION RT-BID #60 nebu Montelukast [Singulair] 10 mg PO HS #30 tab Acetaminophen Tab [Tylenol] 650 mg PO Q6HR PRN tab PRN Reason: Mild Pain Doxycycline [Vibramycin] 100 mg PO BID #14 cap Continue Atorvastatin [Lipitor] 40 mg PO DAILY #30 tab Aspirin 81 mg PO DAILY chew Spironolactone [Aldactone] 25 mg PO DAILY #30 tab Furosemide [Lasix] 40 mg PO DAILY Discontinued Metoprolol Tartrate [Lopressor] 50 mg PO BID #60 tab Losartan [Cozaar] 50 mg PO DAILY Discharge Medication List Atorvastatin [Lipitor] 40 mg PO DAILY #30 tab 08/31/16 [Rx] Aspirin 81 mg PO DAILY chew 01/09/18 [Rx] Spironolactone [Aldactone] 25 mg PO DAILY #30 tab 01/09/18 [Rx] Furosemide [Lasix] 40 mg PO DAILY 09/20/18 [History] Nitroglycerin Sl Tabs [Nitrostat] 0.4 mg SUBLINGUAL Q5M PRN #25 tab 09/24/18 [Rx] Acetaminophen Tab [Tylenol] 650 mg PO Q6HR PRN tab 09/27/18 [Rx] Aspirin 81 mg PO DAILY chew 09/27/18 [Rx] Budesonide [Pulmicort] 0.5 mg INHALATION RT-BID #60 nebu 09/27/18 [Rx] Carvedilol [Coreg] 3.125 mg PO BID-W/MEALS #60 tab 09/27/18 [Rx] Doxycycline [Vibramycin] 100 mg PO BID #14 cap 09/27/18 [Rx] Famotidine [Pepcid] 20 mg PO DAILY #30 tab 09/27/18 [Rx] Fluticasone Nasal [place] [Flonase Nasal [place]] 2 spray EA NOSTRIL DAILY PRN spr 09/27/18 [Rx] Ipratropium-Albuterol Nebulize [Duoneb 0.5 mg-3 mg/3 ml Soln] 3 ml INHALATION RT-Q4H PRN #120 ampul.neb 09/27/18 [Rx] Ipratropium-Albuterol Nebulize [Duoneb 0.5 mg-3 mg/3 ml Soln] 3 ml INHALATION RT-QID #120 ampul.neb 09/27/18 [Rx] Loratadine [Claritin] 10 mg PO DAILY PRN tab 09/27/18 [Rx] Methadone [Dolophine] 5 mg PO DAILY tab 09/27/18 [Rx] Methadone [Dolophine] 90 mg PO DAILY tab 09/27/18 [Rx] Montelukast [Singulair] 10 mg PO HS #30 tab 09/27/18 [Rx] Nicotine 21Mg/24Hr Patch [Habitrol] 1 patch TRANSDERM DAILY #30 patch 09/27/18 [Rx] Sacubitril/Valsartan [Entresto 24 mg-26 mg Tablet] 1 each PO BID #60 tablet 09/27/18 [Rx] predniSONE 10 mg PO DIRECTED #40 tab 09/27/18 [Rx] Follow up Appointment(s)/Referral(s): Elsy Ch MD [STAFF PHYSICIAN] - 10/01/18 3:00 pm (Device check and Folow up with Dr Ch) Jame Bautista MD [Primary Care Provider] - 10/03/18 9:00 am () Jose L Gong MD [STAFF PHYSICIAN] - 10/14/18 11:00 am (Sunday) Patient Instructions/Handouts: *Surgery [facility] - After Heart Catheterization - [employer] Instructions, Heart Healthy Diet (DC), COPD (Chronic Obstructive Pulmonary Disease) (DC), Pacemaker (DC) Discharge Disposition: HOME WITH HOME HEALTH SERVICES
[2018-09-27 17:02] LABS: Glucose,Whole Blood 139 mg/dL (75-99)
== END 2018-09-27 17:33 | disposition home or self-care (01) | DRG 222 ==
LOC: EC 10:30 → 3SCARD 12:44
PROVIDERS: ADMIT Internal Medicine; ATTEND Internal Medicine
PROC: 4A023N7 Measurement of Cardiac Sampling and Pressure, Left Heart, Percutaneous Approach (ICD-10-PCS; 2018-09-23)
PROC: B2111ZZ Fluoroscopy of Multiple Coronary Arteries using Low Osmolar Contrast (ICD-10-PCS; 2018-09-23)
PROC: B2131ZZ Fluoroscopy of Multiple Coronary Artery Bypass Grafts using Low Osmolar Contrast (ICD-10-PCS; 2018-09-23)
PROC: B2151ZZ Fluoroscopy of Left Heart using Low Osmolar Contrast (ICD-10-PCS; 2018-09-23)
PROC: 02H63KZ Insertion of Defibrillator Lead into Right Atrium, Percutaneous Approach (ICD-10-PCS; 2018-09-26)
PROC: 0JH609Z Insertion of Cardiac Resynchronization Defibrillator Pulse Generator into Chest Subcutaneous Tissue and Fascia, Open Approach (ICD-10-PCS; principal; 2018-09-26 15:51)
PROC: 02HK3KZ Insertion of Defibrillator Lead into Right Ventricle, Percutaneous Approach (ICD-10-PCS; 2018-09-26 15:51)
DX: I21.4 Non-ST elevation (NSTEMI) myocardial infarction (principal); I50.33 Acute on chronic diastolic (congestive) heart failure; J96.21 Acute and chronic respiratory failure with hypoxia; N17.9 Acute kidney failure, unspecified; I47.2 Ventricular tachycardia; J44.1 Chronic obstructive pulmonary disease with (acute) exacerbation; I11.0 Hypertensive heart disease with heart failure; I08.1 Rheumatic disorders of both mitral and tricuspid valves; I25.10 Atherosclerotic heart disease of native coronary artery without angina pectoris; E78.5 Hyperlipidemia, unspecified; I44.7 Left bundle-branch block, unspecified; E66.9 Obesity, unspecified; G89.4 Chronic pain syndrome; R94.5 Abnormal results of liver function studies; F41.9 Anxiety disorder, unspecified; J30.2 Other seasonal allergic rhinitis; I25.5 Ischemic cardiomyopathy; I25.2 Old myocardial infarction; Z99.81 Dependence on supplemental oxygen; Z71.3 Dietary counseling and surveillance; Z68.29 Body mass index [BMI] 29.0-29.9, adult; Z79.899 Other long term (current) drug therapy; Z79.82 Long term (current) use of aspirin; Z86.14 Personal history of Methicillin resistant Staphylococcus aureus infection; Z95.5 Presence of coronary angioplasty implant and graft; Z95.1 Presence of aortocoronary bypass graft; Z87.891 Personal history of nicotine dependence; Z80.0 Family history of malignant neoplasm of digestive organs; Z80.6 Family history of leukemia
CPT/HCPCS: 33225; 33249; 36415; 71046; 80048; 80053; 82550; 83735; 83880; 84132; 84439; 84443; 84484; 85025; 85379; 85610; 85730; 93005; 93306; 93459; 94640; 94760; 96374; 96375; 99285

== ENCOUNTER 2018-12-25 22:05 | Emergency (ER) | payer OTHER ==
[2018-12-25] MEDS ORDERED: MORPHINE SULFATE 4 MG/ML SYRINGE IVP STA (22:22)
[2018-12-25] MEDS ORDERED: IPRATROPIUM-ALBUTEROL 3 ML NEB INHALATION STA (22:22)
[2018-12-25] MEDS ORDERED: methylPREDNISolone SOD SUCCI 125 MG/2 ML VIAL IV STA (22:22)
[2018-12-25 22:53] LABS: Basophils # (A) 0.1 k/uL (0-0.2); Basophils % (A) 1 %; Eosinophils # (A) 0.5 k/uL (0-0.7); Eosinophils % (A) 7 %; HCT 36.6 % (39.0-53.0); HGB 11.6 gm/dL (13.0-17.5); Lymphocytes # (A) 1.9 k/uL (1.0-4.8); Lymphocytes % (A) 28 %; MCH 29.9 pg (25.0-35.0); MCHC 31.7 g/dL (31.0-37.0); MCV 94.3 fL (80.0-100.0); Mean Platelet Volume 7.2; Monocytes # (A) 0.5 k/uL (0-1.0); Monocytes % (A) 8 %; Neutrophils # (A) 3.6 k/uL (1.3-7.7); Neutrophils % (A) 53 %; Platelet Count 209 k/uL (150-450); RBC 3.88 m/uL (4.30-5.90); RDW 13.8 % (11.5-15.5); WBC 6.9 k/uL (3.8-10.6)
[2018-12-25 22:54] LABS: ABG Base Excess 10.5 mmol/L; ABG HCO3 36 mmol/L (21-25); ABG Oxygen Saturation 99.2 % (94-97); ABG PCO2 61 mmHg (35-45); ABG PH 7.38 (7.35-7.45); ABG PO2 160 mmHg (83-108); ABG TCO2 38 mmol/L (19-24); Allen Test Performed? Yes
[2018-12-25 23:01] LABS: Calcium 9.4 mg/dL (8.4-10.2); Potassium 4.9 mmol/L (3.5-5.1)
[2018-12-25] MEDS ORDERED: HYDROmorphone 1 MG/ML 1 ML SYRINGE IVP STA ×2 (23:23→23:53)
--- NOTE | 2018-12-25 23:25 | XR ---
EXAM: XR Chest, 2 Views CLINICAL HISTORY: ITS.REASON XR Reason: Pain TECHNIQUE: Frontal and lateral views of the chest. COMPARISON: Chest radiograph 09/27/2018 FINDINGS: Post surgical changes of previous median sternotomy. Cardiac pacer/defibrillator has leads extending to region of right atrium and ventricle. Mild cardiomegaly. Mediastinal structures are unremarkable. Low lung volumes with mild bibasilar subsegmental atelectasis. No focal infiltrates or consolidations. No evidence of overt congestive failure or pulmonary edema. No evidence of pleural effusion or pneumothorax. Chronic elevation of right hemidiaphragm unchanged. Mild degenerative changes involve mid-lower thoracic spine. Overall, no significant change as compared to prior chest radiograph 09/27/2018. IMPRESSION: Previous median sternotomy and cardiac surgery. Cardiac pacer. Mild cardiomegaly. No evidence of acute cardiopulmonary disease.
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
[2018-12-26 00:01] VITALS: TEMP 98.2
[2018-12-26] MEDS ORDERED: HYDROmorphone 1 MG/ML 1 ML SYRINGE IVP STA ×2 (00:57→03:21)
[2018-12-26 03:37] VITALS: BP 101/70; PULSE 89; RESP 18
== END 2018-12-26 03:34 ==
LOC: EC 22:05
DX: T20.16XA Burn of first degree of forehead and cheek, initial encounter (principal); T20.14XA Burn of first degree of nose (septum), initial encounter; R06.2 Wheezing; J44.9 Chronic obstructive pulmonary disease, unspecified; I11.0 Hypertensive heart disease with heart failure; I50.9 Heart failure, unspecified; I25.2 Old myocardial infarction; I25.10 Atherosclerotic heart disease of native coronary artery without angina pectoris; G89.29 Other chronic pain; Z87.891 Personal history of nicotine dependence; Z79.891 Long term (current) use of opiate analgesic; Z79.899 Other long term (current) drug therapy; Z86.14 Personal history of Methicillin resistant Staphylococcus aureus infection; Z95.1 Presence of aortocoronary bypass graft; Z95.5 Presence of coronary angioplasty implant and graft; Z99.81 Dependence on supplemental oxygen; X08.8XXA Exposure to other specified smoke, fire and flames, initial encounter; Y93.I9 Activity, other involving external motion
CPT/HCPCS: 36415; 94640; 36600; 93005; 80048; 82805; 83605; 85025; 71046; 99291; 96374; 96375 ×2; 96376 ×3; J2270; J2930; J1170 ×2

== ENCOUNTER 2019-02-09 16:33 | Emergency (ER) | payer OTHER ==
[2019-02-09 16:39] VITALS: TEMP 98.1
[2019-02-09] MEDS ORDERED: IPRATROPIUM 0.5 MG/2.5 ML NEBU INHALATION STA (16:54)
[2019-02-09] MEDS ORDERED: ALBUTEROL NEBULIZED 2.5 MG/3 ML INHALATION STA (16:54)
[2019-02-09] MEDS ORDERED: methylPREDNISolone SOD SUCCI 125 MG/2 ML VIAL IV STA (16:54)
[2019-02-09] MEDS ORDERED: MAGNESIUM SULFATE-D5W PMX 1 GM in DEXTROSE/WATER 1 100ML.BAG IVPB STA (16:54)
--- NOTE | 2019-02-09 17:09 | ED ---
SOB HPI - General Chief Complaint: Shortness of Breath Stated Complaint: duong Time Seen by Provider: 02/09/19 16:50 Source: patient Mode of arrival: wheelchair Limitations: no limitations - History of Present Illness Initial Comments: Patient presents with shortness of breath. He has a history of severe COPD. He has no belly or back pain. He has no chest pain or pressure or tightness. He has no nausea or vomiting or diaphoresis. Nothing makes his symptoms better or worse. He has taken his usual home medication. He denies sick contacts. He denies recent travel. He has no palpitations. He has no pain or swelling in the arms or legs. - Related Data Home Medications Medication Instructions Recorded Confirmed Furosemide [Lasix] 40 mg PO DAILY 09/20/18 02/09/19 ALPRAZolam [Xanax] 0.25 mg PO TID PRN 12/04/18 02/09/19 Ipratropium/Albuterol Sulfate 1 puff INHALATION RT-QID 12/04/18 02/09/19 [Combivent Respimat Inhaler] Albuterol Inhaler [Ventolin Hfa 1 - 2 puff INHALATION RT-QID PRN 12/25/18 Inhaler] Carvedilol [Coreg] 3.125 mg PO BID 12/25/18 02/09/19 Loratadine [Claritin] 10 mg PO DAILY 02/09/19 02/09/19 Methadone HCl [Methadone Intensol] 115 mg PO DAILY 02/09/19 02/09/19 Sacubitril/Valsartan [Entresto 24 1 tab PO BID 02/09/19 02/09/19 mg-26 mg Tablet] Previous Rx's Medication Instructions Recorded Atorvastatin [Lipitor] 40 mg PO DAILY #30 tab 08/31/16 Aspirin 81 mg PO DAILY chew 01/09/18 Spironolactone [Aldactone] 25 mg PO DAILY #30 tab 01/09/18 Nitroglycerin Sl Tabs [Nitrostat] 0.4 mg SUBLINGUAL Q5M PRN #25 tab 09/24/18 Acetaminophen Tab [Tylenol] 650 mg PO Q6HR PRN tab 09/27/18 Famotidine [Pepcid] 20 mg PO DAILY #30 tab 09/27/18 Ipratropium-Albuterol Nebulize 3 ml INHALATION RT-QID #120 09/27/18 [Duoneb 0.5 mg-3 mg/3 ml Soln] ampul.neb Montelukast [Singulair] 10 mg PO HS #30 tab 09/27/18 Nicotine 21Mg/24Hr Patch [Habitrol] 1 patch TRANSDERM DAILY #30 patch 09/27/18 predniSONE 50 mg PO DAILY #3 tablet 02/09/19 Allergies Allergy/AdvReac Type Severity Reaction Status Date / Time No Known Allergies Allergy Verified 02/09/19 16:59 Review of Systems ROS Statement: Those systems with pertinent positive or pertinent negative responses have been documented in the HPI. ROS Other: All systems not noted in ROS Statement are negative. Past Medical History Past Medical History: Coronary Artery Disease (CAD), Heart Failure, COPD, Hyperlipidemia, Hypertension, Myocardial Infarction ([place]), Respiratory Disorder Additional Past Medical History / Comment(s): Home oxygen which pt states he wears a 5L/NC at HS usually but more often than that lately, seasonal allergies, chronic low back pain Last Myocardial Infarction Date:: 2013 History of Any Multi-Drug Resistant Organisms: MRSA Date of last positivie culture/infection: 02/08/09 MDRO Source:: Leg Past Surgical History: Coronary Bypass/CABG, Heart Catheterization With Stent Additional Past Surgical History / Comment(s): CABG 2018- 3 vessel Past Anesthesia/Blood Transfusion Reactions: No Reported Reaction Additional Past Anesthesia/Blood Transfusion Reaction / Comment(s): Difficulty in breathing Date of Last Stent Placement:: 2013 Past Psychological History: Depression Smoking Status: Former smoker Past Alcohol Use History: None Reported Past Drug Use History: None Reported - Past Family History Father Family Medical History: Cancer Additional Family Medical History / Comment(s): Pancreatic CA Mother Family Medical History: Cancer Additional Family Medical History / Comment(s): Leukemia General Exam Limitations: no limitations General appearance: alert, in no apparent distress Head exam: Present: atraumatic, normocephalic, normal inspection Eye exam: Present: normal appearance, PERRL, EOMI. Absent: scleral icterus, conjunctival injection, periorbital swelling ENT exam: Present: normal exam, mucous membranes moist Neck exam: Present: normal inspection. Absent: tenderness, meningismus, lymphadenopathy Respiratory exam: Present: respiratory distress, wheezes. Absent: rales, rhonchi, stridor Cardiovascular Exam: Present: regular rate, normal rhythm, normal heart sounds. Absent: systolic murmur, diastolic murmur, rubs, gallop, clicks GI/Abdominal exam: Present: soft, normal bowel sounds. Absent: distended, tenderness, guarding, rebound, rigid Extremities exam: Present: normal inspection, full ROM, normal capillary refill. Absent: tenderness, pedal edema, joint swelling, calf tenderness Back exam: Present: normal inspection Neurological exam: Present: alert, oriented X3, CN II-XII intact Psychiatric exam: Present: normal affect, normal mood Skin exam: Present: warm, dry, intact, normal color. Absent: rash Course Vital Signs 02/09/19 02/09/19 02/09/19 16:35 17:26 17:43 Temperature 98.1 F Pulse Rate 67 52 L 50 L Respiratory 18 Rate Blood Pressure 116/76 O2 Sat by Pulse 98 Oximetry 02/09/19 02/09/19 18:00 18:32 Temperature Pulse Rate 51 L 53 L Respiratory Rate Blood Pressure O2 Sat by Pulse Oximetry Medical Decision Making - Medical Decision Making Patient presented with shortness of breath. His chest x-ray shows no pneumonia. He received breathing treatments and IV steroids. On reevaluation his lungs are clear. I offered the patient admission. He does not want to stay. He would prefer to follow up as an outpatient. He is making the decision to leave. - Lab Data Result diagrams: 02/09/19 17:04 02/09/19 17:04 Lab Results 02/09/19 02/09/19 02/09/19 Range/Units 17:04 17:04 17:04 WBC 5.5 (3.8-10.6) k/uL RBC 3.81 L (4.30-5.90) m/uL Hgb 12.1 L (13.0-17.5) gm/dL Hct 35.4 L (39.0-53.0) % MCV 92.9 (80.0-100.0) fL MCH 31.8 (25.0-35.0) pg MCHC 34.3 (31.0-37.0) g/dL RDW 13.4 (11.5-15.5) % Plt Count 200 (150-450) k/uL Neutrophils % 58 % Lymphocytes % 26 % Monocytes % 6 % Eosinophils % 7 % Basophils % 1 % Neutrophils # 3.2 (1.3-7.7) k/uL Lymphocytes # 1.4 (1.0-4.8) k/uL Monocytes # 0.3 (0-1.0) k/uL Eosinophils # 0.4 (0-0.7) k/uL Basophils # 0.1 (0-0.2) k/uL PT (9.0-12.0) sec INR (<1.2) APTT (22.0-30.0) sec Sodium 139 (137-145) mmol/L Potassium 5.0 (3.5-5.1) mmol/L Chloride 97 L (98-107) mmol/L Carbon Dioxide 32 H (22-30) mmol/L Anion Gap 10 mmol/L BUN 32 H (9-20) mg/dL Creatinine 1.27 H (0.66-1.25) mg/dL Est GFR (CKD-EPI)AfAm 71 (>60 ml/min/1.73 sqM) Est GFR (CKD-EPI)NonAf 61 (>60 ml/min/1.73 sqM) Glucose 130 H (74-99) mg/dL Calcium 9.6 (8.4-10.2) mg/dL Magnesium 2.1 (1.6-2.3) mg/dL Total Bilirubin 0.5 (0.2-1.3) mg/dL AST 31 (17-59) U/L ALT 21 (21-72) U/L Alkaline Phosphatase 79 (38-126) U/L Troponin I (0.000-0.034) ng/mL NT-Pro-B Natriuret Pep 3160 pg/mL Total Protein 7.6 (6.3-8.2) g/dL Albumin 4.6 (3.5-5.0) g/dL 02/09/19 02/09/19 Range/Units 17:04 17:04 WBC (3.8-10.6) k/uL RBC (4.30-5.90) m/uL Hgb (13.0-17.5) gm/dL Hct (39.0-53.0) % MCV (80.0-100.0) fL MCH (25.0-35.0) pg MCHC (31.0-37.0) g/dL RDW (11.5-15.5) % Plt Count (150-450) k/uL Neutrophils % % Lymphocytes % % Monocytes % % Eosinophils % % Basophils % % Neutrophils # (1.3-7.7) k/uL Lymphocytes # (1.0-4.8) k/uL Monocytes # (0-1.0) k/uL Eosinophils # (0-0.7) k/uL Basophils # (0-0.2) k/uL PT 10.7 (9.0-12.0) sec INR 1.0 (<1.2) APTT 22.1 (22.0-30.0) sec Sodium (137-145) mmol/L Potassium (3.5-5.1) mmol/L Chloride (98-107) mmol/L Carbon Dioxide (22-30) mmol/L Anion Gap mmol/L BUN (9-20) mg/dL Creatinine (0.66-1.25) mg/dL Est GFR (CKD-EPI)AfAm (>60 ml/min/1.73 sqM) Est GFR (CKD-EPI)NonAf (>60 ml/min/1.73 sqM) Glucose (74-99) mg/dL Calcium (8.4-10.2) mg/dL Magnesium (1.6-2.3) mg/dL Total Bilirubin (0.2-1.3) mg/dL AST (17-59) U/L ALT (21-72) U/L Alkaline Phosphatase (38-126) U/L Troponin I 0.025 (0.000-0.034) ng/mL NT-Pro-B Natriuret Pep pg/mL Total Protein (6.3-8.2) g/dL Albumin (3.5-5.0) g/dL 02/09/19 17:13 Twelve-lead EKG shows ventricular rate 59 bpm, there are ventricular pacer spikes, the QRS complexes are wide, there is no ST elevation or depression, interpreted by me as a ventricular paced rhythm. Disposition Clinical Impression: Acute exacerbation of chronic obstructive airways disease Disposition: HOME SELF-CARE Condition: Good Instructions (If sedation given, give patient instructions): COPD (Chronic Obstructive Pulmonary Disease) (ED) Prescriptions: predniSONE 50 mg PO DAILY #3 tablet Is patient prescribed a controlled substance at d/c from ED?: No Referrals: Jame Bautista MD [Primary Care Provider] - 1-2 days Time of Disposition: 18:59
[2019-02-09 17:20] LABS: Basophils # (A) 0.1 k/uL (0-0.2); Basophils % (A) 1 %; Eosinophils # (A) 0.4 k/uL (0-0.7); Eosinophils % (A) 7 %; HCT 35.4 % (39.0-53.0); HGB 12.1 gm/dL (13.0-17.5); Lymphocytes # (A) 1.4 k/uL (1.0-4.8); Lymphocytes % (A) 26 %; MCH 31.8 pg (25.0-35.0); MCHC 34.3 g/dL (31.0-37.0); MCV 92.9 fL (80.0-100.0); Monocytes # (A) 0.3 k/uL (0-1.0); Monocytes % (A) 6 %; Neutrophils # (A) 3.2 k/uL (1.3-7.7); Neutrophils % (A) 58 %; Platelet Count 200 k/uL (150-450); RBC 3.81 m/uL (4.30-5.90); RDW 13.4 % (11.5-15.5); WBC 5.5 k/uL (3.8-10.6)
[2019-02-09 17:37] LABS: Albumin 4.6 g/dL (3.5-5.0); Calcium 9.6 mg/dL (8.4-10.2); Magnesium 2.1 mg/dL (1.6-2.3); Total Bilirubin 0.5 mg/dL (0.2-1.3); Total Protein 7.6 g/dL (6.3-8.2)
[2019-02-09 17:39] LABS: Partial Thromboplastin Time 22.1 sec (22.0-30.0); Prothrombin Time 10.7 sec (9.0-12.0)
--- NOTE | 2019-02-09 18:13 | XR ---
EXAMINATION TYPE: XR chest 1V DATE OF EXAM: 02/09/2019 COMPARISON: 12/25/2018 HISTORY: Difficulty breathing TECHNIQUE: Single frontal view of the chest is obtained. FINDINGS: There is elevated right diaphragm. There is no gross heart failure. There is a left axilla ry pacemaker. There are chest leads. There is coarsening of the lung markings. IMPRESSION: Chronic elevated right diaphragm unchanged. No gross heart failure. 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
[2019-02-09 19:02] VITALS: BP 116/74; PULSE 68; RESP 15
== END 2019-02-09 19:01 | disposition home or self-care (01) ==
LOC: EC 16:33
DX: J44.1 Chronic obstructive pulmonary disease with (acute) exacerbation (principal); I25.10 Atherosclerotic heart disease of native coronary artery without angina pectoris; I11.0 Hypertensive heart disease with heart failure; I50.9 Heart failure, unspecified; I25.2 Old myocardial infarction; G89.29 Other chronic pain; Z91.048 Other nonmedicinal substance allergy status; Z87.891 Personal history of nicotine dependence; Z79.891 Long term (current) use of opiate analgesic; Z79.899 Other long term (current) drug therapy; Z86.14 Personal history of Methicillin resistant Staphylococcus aureus infection; Z95.1 Presence of aortocoronary bypass graft; Z95.5 Presence of coronary angioplasty implant and graft; Z99.81 Dependence on supplemental oxygen; Z53.29 Procedure and treatment not carried out because of patient's decision for other reasons
CPT/HCPCS: 99285; 96365; 96375; 36415; 94644; 93005; 83880; 80053; 83735; 84484; 85025; 85610; 85730; 71045; J2930; J3475

== ENCOUNTER 2019-02-09 21:08 | Inpatient (IN) | payer OTHER ==
[2019-02-09] MEDS ORDERED: IPRATROPIUM-ALBUTEROL 3 ML NEB INHALATION STA (22:15)
[2019-02-09] MEDS ORDERED: FUROSEMIDE 10 MG/ML 4 ML VIAL IV STA (22:15)
--- NOTE | 2019-02-09 22:18 | ED ---
SOB HPI - General Chief Complaint: Shortness of Breath Stated Complaint: MARYA Time Seen by Provider: 02/09/19 21:54 Source: patient, RN notes reviewed, old records reviewed Mode of arrival: ambulatory - History of Present Illness Initial Comments: This is a [id number] male history of CHF COPD heart disease who was treated earlier in this emergency department for shortness of breath offered admission but he chose to go home. He is back tonight with complaints of increased shortness of breath exertional dyspnea no chest pain no fevers chills nausea vomiting sweats or other symptoms other and he states his throat feels dry.". His earlier lab work did show a BNP of 3160. X-ray was read as unremarkable for acute processes. MD Complaint: shortness of breath - Related Data Home Medications Medication Instructions Recorded Confirmed Furosemide [Lasix] 40 mg PO DAILY 09/20/18 02/09/19 ALPRAZolam [Xanax] 0.25 mg PO TID PRN 12/04/18 02/09/19 Ipratropium/Albuterol Sulfate 1 puff INHALATION RT-QID 12/04/18 02/09/19 [Combivent Respimat Inhaler] Albuterol Inhaler [Ventolin Hfa 1 - 2 puff INHALATION RT-QID PRN 12/25/18 02/09/19 Inhaler] Carvedilol [Coreg] 3.125 mg PO BID 12/25/18 02/09/19 Loratadine [Claritin] 10 mg PO DAILY 02/09/19 02/09/19 Methadone HCl [Methadone Intensol] 115 mg PO DAILY 02/09/19 02/09/19 Sacubitril/Valsartan [Entresto 24 1 tab PO BID 02/09/19 02/09/19 mg-26 mg Tablet] Previous Rx's Medication Instructions Recorded Atorvastatin [Lipitor] 40 mg PO DAILY #30 tab 08/31/16 Aspirin 81 mg PO DAILY chew 01/09/18 Spironolactone [Aldactone] 25 mg PO DAILY #30 tab 01/09/18 Nitroglycerin Sl Tabs [Nitrostat] 0.4 mg SUBLINGUAL Q5M PRN #25 tab 09/24/18 Acetaminophen Tab [Tylenol] 650 mg PO Q6HR PRN tab 09/27/18 Famotidine [Pepcid] 20 mg PO DAILY #30 tab 09/27/18 Ipratropium-Albuterol Nebulize 3 ml INHALATION RT-QID #120 09/27/18 [Duoneb 0.5 mg-3 mg/3 ml Soln] ampul.neb Montelukast [Singulair] 10 mg PO HS #30 tab 09/27/18 Nicotine 21Mg/24Hr Patch [Habitrol] 1 patch TRANSDERM DAILY #30 patch 09/27/18 predniSONE 50 mg PO DAILY #3 tablet 02/09/19 Allergies Allergy/AdvReac Type Severity Reaction Status Date / Time No Known Allergies Allergy Verified 02/09/19 21:12 Review of Systems ROS Statement: Those systems with pertinent positive or pertinent negative responses have been documented in the HPI. ROS Other: All systems not noted in ROS Statement are negative. Past Medical History Past Medical History: Coronary Artery Disease (CAD), Heart Failure, COPD, H yperlipidemia, Hypertension, Myocardial Infarction ([place]), Respiratory Disorder Additional Past Medical History / Comment(s): Home oxygen which pt states he wears a 5L/NC at HS usually but more often than that lately, seasonal allergies, chronic low back pain Last Myocardial Infarction Date:: 2013 History of Any Multi-Drug Resistant Organisms: MRSA Date of last positivie culture/infection: 02/08/09 MDRO Source:: Leg Past Surgical History: Coronary Bypass/CABG, Heart Catheterization With Stent Additional Past Surgical History / Comment(s): CABG 2018- 3 vessel Past Anesthesia/Blood Transfusion Reactions: No Reported Reaction Additional Past Anesthesia/Blood Transfusion Reaction / Comment(s): Difficulty in breathing Date of Last Stent Placement:: 2013 Past Psychological History: Depression Smoking Status: Former smoker Past Alcohol Use History: None Reported Past Drug Use History: None Reported - Past Family History Father Family Medical History: Cancer Additional Family Medical History / Comment(s): Pancreatic CA Mother Family Medical History: Cancer Additional Family Medical History / Comment(s): Leukemia General Exam - General Exam Comments Initial Comments: This is a well-developed well-nourished awake alert oriented 3 male General appearance: alert, anxious, in distress Head exam: Present: atraumatic, normocephalic, normal inspection Eye exam: Present: normal appearance, PERRL, EOMI. Absent: scleral icterus, conjunctival injection, periorbital swelling ENT exam: Present: normal exam, mucous membranes moist Neck exam: Present: normal inspection, full ROM, other (No stridor JVD or bruits). Absent: tenderness, meningismus, lymphadenopathy Respiratory exam: Present: rales (Left lower lobe rales), decreased breath sounds. Absent: respiratory distress, wheezes, rhonchi, stridor Cardiovascular Exam: Present: regular rate, normal rhythm, normal heart sounds. Absent: systolic murmur, diastolic murmur, rubs, gallop, clicks GI/Abdominal exam: Present: soft, normal bowel sounds. Absent: distended, tenderness, guarding, rebound, rigid Extremities exam: Present: normal inspection, full ROM, normal capillary refill. Absent: tenderness, pedal edema, joint swelling, calf tenderness Back exam: Present: normal inspection Neurological exam: Present: alert, oriented X3, CN II-XII intact Psychiatric exam: Present: normal affect, normal mood Skin exam: Present: warm, dry, intact, normal color. Absent: rash Course Vital Signs 02/09/19 02/09/19 02/09/19 21:10 22:56 23:23 Temperature 98.6 F Pulse Rate 70 58 L 60 Respiratory 20 20 Rate Blood Pressure 150/71 101/63 O2 Sat by Pulse 97 99 Oximetry 02/09/19 23:30 Temperature Pulse Rate 60 Respiratory Rate Blood Pressure O2 Sat by Pulse Oximetry - Reevaluation(s) Reevaluation #1: 02/09/19 23:45 Reevaluation patient after the initial encounter and treatment is an increased aeration but now there is audible rales at both bases. Medical Decision Making - Medical Decision Making I did review the previous workup and did repeat troponins which are within normal limits patient does demonstrate evidence of COPD exacerbation as well as CHF with outpatient treatment failure. I did discuss the case with Dr. Farrell. Patient will be admitted with cardiology consultation. - Lab Data Lab Results 02/09/19 Range/Units 21:51 Troponin I 0.019 (0.000-0.034) ng/mL Disposition Clinical Impression: Systolic congestive heart failure, Acute exacerbation of chronic obstructive airways disease, Failure of outpatient treatment Disposition: ADMITTED IP TO THIS [facility] Condition: Fair Referrals: Jame Bautista MD [Primary Care Provider] - 1-2 days
[2019-02-10] MEDS ORDERED: ACETAMINOPHEN TAB 325 MG TAB PO PRN
[2019-02-10] MEDS ORDERED: NITROGLYCERIN SL TABS 0.4 MG TAB SUBLINGUAL PRN
[2019-02-10] MEDS ORDERED: IPRATROPIUM-ALBUTEROL 3 ML NEB INHALATION PRN (00:20)
[2019-02-10] MEDS ORDERED: IPRATROPIUM-ALBUTEROL 3 ML NEB INHALATION SCH (02:00)
[2019-02-10] MEDS: FUROSEMIDE 10 MG/ML 4 ML VIAL IV SCH ×4 (02:55→23:26)
[2019-02-10] MEDS: IPRATROPIUM-ALBUTEROL 3 ML NEB INHALATION SCH ×4 (08:15→19:19)
[2019-02-10] MEDS ORDERED: FUROSEMIDE 40 MG TAB PO SCH (09:00)
--- NOTE | 2019-02-10 09:07 | P.CRDCN ---
History of Present Illness Consult date: 02/10/19 Chief complaint: Shortness of breath History of present illness: This is a pleasant 58-year-old gentleman who sees Dr. Ch in the office as an outpatient with a past medical history significant for coronary artery disease and status post coronary artery bypass grafting, ischemic cardiomyopathy unknown EF of 20%, status post by the ICD, as well as chronic obstructive pulmonary disease where the patient currently is on oxygen at home, presented to the hospital complaining of shortness of breath. The patient stated that the shortness of breath started about a week ago, and he described mainly and orthopnea and PND more than shortness of breath with exertion. Beside that he stated that he was experiencing cough but he was unable to produce any sputum. No fever or chills. No chest pain or chest discomfort. No lower extremities edema. Initially he presented to the emergency room that he decided to go home and he came back again because shortness of breath did not get better. The patient was admitted to the hospital he was started on Lasix IV. The last echocardiogram was in September 2018 and that revealed severe lead impaired LV function was EF around 20% was mild to moderate MR, mild TR, mild pulmonary hypertension. The last heart catheterization was in September 2018 as well and that revealed severe disease involving the LAD with occluded first obtuse marginal branch as well as chronic total occlusion of the RCA with mild to moderate disease involving the proximal left circumflex as well as patent JACKSON to LAD and patent SVG to diagonal as well as PDA with severe lead impaired LV function at that point. Maximize medical treatment was advised and the patient at that point was discharged home in stable medical condition. He stated that he was compliant with all of his medications including the diuretics. He states also that he was compliant with his diet. The troponin came in to be unremarkable this time. The EKG showed an atrial sensed ventricular paced rhythm. No PND. The chest x-ray did not show any acute abnormalities. Past Medical History Past Medical History: Coronary Artery Disease (CAD), Heart Failure, COPD, Hyperlipidemia, Hypertension, Myocardial Infarction ([place]), Respiratory Disorder Additional Past Medical History / Comment(s): Home oxygen which pt states he wears oxygen at 6L/NC at home, seasonal allergies, chronic low back pain Last Myocardial Infarction Date:: 2013 History of Any Multi-Drug Resistant Organisms: MRSA Date of last positivie culture/infection: 02/08/09 MDRO Source:: Leg Past Surgical History: Coronary Bypass/CABG, Heart Catheterization With Stent Additional Past Surgical History / Comment(s): CABG 2018- 3 vessel Past Anesthesia/Blood Transfusion Reactions: No Reported Reaction Additional Past Anesthesia/Blood Transfusion Reaction / Comment(s): Difficulty in breathing Date of Last Stent Placement:: 2013 Past Psychological History: Depression Additional Psychological History / Comment(s): Pt resides with friends. He uses no assistive device. He drives. He has home oxygen. Smoking Status: Former smoker Past Alcohol Use History: None Reported Additional Past Alcohol Use History / Comment(s): Pt states he started smoking as a teen and quit after hospitalization with CHF Past Drug Use History: None Reported - Past Family History Father Family Medical History: Cancer Additional Family Medical History / Comment(s): Pancreatic CA Mother Family Medical History: Cancer Additional Family Medical History / Comment(s): Leukemia Medications and Allergies Home Medications Medication Instructions Recorded Confirmed Type Atorvastatin [Lipitor] 40 mg PO DAILY #30 tab 08/31/16 02/09/19 Rx Aspirin 81 mg PO DAILY chew 01/09/18 02/09/19 Rx Spironolactone [Aldactone] 25 mg PO DAILY #30 tab 01/09/18 02/09/19 Rx Furosemide [Lasix] 40 mg PO DAILY 09/20/18 02/09/19 History Nitroglycerin Sl Tabs [Nitrostat] 0.4 mg SUBLINGUAL Q5M PRN #25 tab 09/24/18 02/09/19 Rx Acetaminophen Tab [Tylenol] 650 mg PO Q6HR PRN tab 09/27/18 02/09/19 Rx Famotidine [Pepcid] 20 mg PO DAILY #30 tab 09/27/18 02/09/19 Rx Ipratropium-Albuterol Nebulize 3 ml INHALATION RT-QID #120 09/27/18 02/09/19 Rx [Duoneb 0.5 mg-3 mg/3 ml Soln] ampul.neb Montelukast [Singulair] 10 mg PO HS #30 tab 09/27/18 02/09/19 Rx Nicotine 21Mg/24Hr Patch [Habitrol] 1 patch TRANSDERM DAILY #30 patch 09/27/18 02/09/19 Rx ALPRAZolam [Xanax] 0.25 mg PO TID PRN 12/04/18 02/09/19 History Ipratropium/Albuterol Sulfate 1 puff INHALATION RT-QID 12/04/18 02/09/19 History [Combivent Respimat Inhaler] Albuterol Inhaler [Ventolin Hfa 1 - 2 puff INHALATION RT-QID PRN 12/25/18 02/09/19 History Inhaler] Carvedilol [Coreg] 3.125 mg PO BID 12/25/18 02/09/19 History Loratadine [Claritin] 10 mg PO DAILY 02/09/19 02/09/19 History Methadone HCl [Methadone Intensol] 115 mg PO DAILY 02/09/19 02/09/19 History Sacubitril/Valsartan [Entresto 24 1 tab PO BID 02/09/19 02/09/19 History mg-26 mg Tablet] predniSONE 50 mg PO DAILY #3 tablet 02/09/19 02/09/19 Rx Allergies Allergy/AdvReac Type Severity Reaction Status Date / Time No Known Allergies Allergy Verified 02/09/19 21:12 Physical Exam Vitals: Vital Signs Temp Pulse Pulse Resp BP BP Pulse Ox 02/10/19 08:27 64 02/10/19 08:15 60 95 02/10/19 01:25 97.8 F 57 L 17 109/64 96 02/09/19 23:57 61 22 122/58 97 02/09/19 23:30 60 02/09/19 23:23 60 02/09/19 22:56 58 L 20 101/63 99 02/09/19 21:10 98.6 F 70 20 150/71 97 Intake and Output 02/09/19 02/10/19 02/10/19 22:59 06:59 14:59 Intake Total 120 Balance 120 Intake: Amount of Fluid Infused ( 20 ml) Oral 100 Other: Weight 90.718 kg - Constitutional General appearance: no acute distress - Respiratory Respiratory: bilateral: diminished - Cardiovascular Rhythm: regular Heart sounds: normal: S1, S2 Results Cardiac Enzymes 02/09/19 02/10/19 Range/Units 21:51 03:45 Troponin I 0.019 0.014 (0.000-0.034) ng/mL Current Medications Generic Name Dose Route Start Last Admin Trade Name Freq PRN Reason Stop Dose Admin Acetaminophen 650 mg 02/10/19 00:00 Tylenol Tab PO Q6HR PRN Mild Pain Albuterol/Ipratropium 3 ml 02/10/19 08:00 02/10/19 08:15 Duoneb 0.5 Mg-3 Mg/3 Ml Soln INHALATION 3 ml RT-QID JULIANE Administration Albuterol/Ipratropium 3 ml 02/10/19 00:20 Duoneb 0.5 Mg-3 Mg/3 Ml Soln INHALATION RT-Q2H PRN Shortness Of Breath Or Wheezing Alprazolam 0.25 mg 02/10/19 00:00 Xanax PO TID PRN Anxiety Aspirin 81 mg 02/10/19 09:00 Aspirin PO DAILY [facility] Atorvastatin Calcium 40 mg 02/10/19 09:00 Lipitor PO DAILY [facility] Carvedilol 3.125 mg 02/10/19 07:30 Coreg PO BID-W/MEALS [facility] Famotidine 20 mg 02/10/19 09:00 Pepcid PO DAILY [facility] Furosemide 40 mg 02/10/19 00:00 02/10/19 02:55 Lasix IV Not Given Q8HR [facility] Furosemide 40 mg 02/10/19 09:00 Lasix PO DAILY [facility] Loratadine 10 mg 02/10/19 09:00 Claritin PO DAILY [facility] Methadone HCl 110 mg 02/10/19 09:00 Dolophine PO DAILY [facility] Methadone HCl 5 mg 02/10/19 09:00 Dolophine PO DAILY [facility] Montelukast Sodium 10 mg 02/10/19 21:00 Singulair PO HS [facility] Nicotine 1 patch 02/10/19 09:00 Habitrol 21mg/24hr Patch TRANSDERM DAILY [facility] Nitroglycerin 0.4 mg 02/10/19 00:00 Nitrostat SUBLINGUAL Q5M PRN Chest Pain Prednisone 50 mg 02/10/19 09:00 PO DAILY [facility] Sacubitril/Valsartan 1 each 02/10/19 09:00 Entresto 24 Mg-26 Mg Tablet PO BID [facility] Spironolactone 25 mg 02/10/19 09:00 Aldactone PO DAILY [facility] Intake and Output 02/09/19 02/10/19 02/10/19 22:59 06:59 14:59 Intake Total 120 Balance 120 Intake: Amount of Fluid Infused ( 20 ml) Oral 100 Other: Weight 90.718 kg Assessment and Plan Assessment: Assessment #1 shortness of breath likely to be a combination of CHF exacerbation as well as COPD exacerbation #2 congestive heart failure exacerbation secondary to systolic dysfunction, acute on chronic #3 severe cardiomyopathy, ischemic, with EF of 20% on recent echocardiogram #4 status post by V AICD placement #5 severe underlying coronary artery disease and status post coronary revascularization as described above #6 multiple comorbid conditions Plan #1 the patient symptoms are more of COPD than CHF exacerbation #2 I would obtain a BNP #3 continue the patient on IV Lasix for at least 24 hours #4 no need to repeat the echocardiogram in view of recent echo showed severe impaired LV function #5 monitor the kidney function and electrolytes #6 follow up with the patient Thank you for allowing us participate in his care
[2019-02-10] MEDS: METHADONE 5 MG TAB PO SCH (09:41)
[2019-02-10] MEDS: ASPIRIN 81 MG PO SCH (09:41)
[2019-02-10] MEDS: ATORVASTATIN 40 MG TAB PO SCH (09:41)
[2019-02-10] MEDS: LORATADINE 10 MG TAB PO SCH (09:41)
[2019-02-10] MEDS: FAMOTIDINE 20 MG TAB PO SCH (09:41)
[2019-02-10] MEDS: SPIRONOLACTONE 25 MG TAB PO SCH (09:41)
[2019-02-10] MEDS: NICOTINE 21MG/24HR PATCH TRANSDERM SCH (09:41)
[2019-02-10] MEDS: SACUBITRIL/VALSARTAN 24 MG-26 MG TABLET PO SCH ×2 (09:42→20:42)
[2019-02-10] MEDS: METHADONE 10 MG TAB PO SCH (09:42)
[2019-02-10] MEDS: predniSONE 50 MG TAB PO SCH (09:42)
[2019-02-10] MEDS: CARVEDILOL 3.125 MG TAB PO SCH ×2 (09:43→18:09)
[2019-02-10 14:45] LABS: Glucose,Whole Blood 221 mg/dL (75-99)
[2019-02-10] MEDS ORDERED: BACITRACIN OINT 1 EACH PACKET TOPICAL SCH (14:45)
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
[2019-02-10 15:42] VITALS: BMI 30.4
[2019-02-10] MEDS: INSULIN ASPART (NovoLOG) 100 UNIT/ML VIAL SQ SCH ×3 (16:30→20:42)
[2019-02-10 16:37] LABS: Glucose,Whole Blood 170 mg/dL (75-99)
[2019-02-10] MEDS: BACITRACIN 500 UNIT/GM OINT 28.4 GM TUBE TOPICAL SCH ×3 (18:09→20:43)
[2019-02-10 20:25] LABS: Glucose,Whole Blood 118 mg/dL (75-99)
[2019-02-10] MEDS: MONTELUKAST 10 MG TAB PO SCH (20:43)
[2019-02-10] MEDS: ALPRAZolam 0.25 MG TAB PO PRN (20:46)
[2019-02-11 07:16] LABS: Glucose,Whole Blood 138 mg/dL (75-99)
[2019-02-11 07:33] LABS: Calcium 9.1 mg/dL (8.4-10.2); Potassium 4.2 mmol/L (3.5-5.1)
[2019-02-11] MEDS: INSULIN ASPART (NovoLOG) 100 UNIT/ML VIAL SQ SCH ×4 (07:56→20:40)
--- NOTE | 2019-02-11 08:04 | P.PN ---
Subjective Progress Note Date: 02/11/19 Principal diagnosis: CHF secondary to systolic dysfunction This is a pleasant 58-year-old gentleman who sees Dr. Ch in the office as an outpatient with a past medical history significant for coronary artery disease and status post coronary artery bypass grafting, ischemic cardiomyopathy unknown EF of 20%, status post by the ICD, as well as chronic obstructive pulmonary dis ease where the patient currently is on oxygen at home, presented to the hospital complaining of shortness of breath. The patient stated that the shortness of breath started about a week ago, and he described mainly and orthopnea and PND more than shortness of breath with exertion. Beside that he stated that he was experiencing cough but he was unable to produce any sputum. No fever or chills. No chest pain or chest discomfort. No lower extremities edema. Initially he presented to the emergency room that he decided to go home and he came back again because shortness of breath did not get better. The patient was admitted to the hospital he was started on Lasix IV. The last echocardiogram was in September 2018 and that revealed severe lead impaired LV function was EF around 20% was mild to moderate MR, mild TR, mild pulmonary hypertension. The last heart catheterization was in September 2018 as well and that revealed severe disease involving the LAD with occluded first obtuse marginal branch as well as chronic total occlusion of the RCA with mild to moderate disease involving the proximal left circumflex as well as patent JACKSON to LAD and patent SVG to diagonal as well as PDA with severe lead impaired LV function at that point. Maximize medical treatment was advised and the patient at that point was discharged home in stable medical condition. He stated that he was compliant with all of his medications including the diuretics. He states also that he was compliant with his diet. The troponin came in to be unremarkable this time. The EKG showed an atrial sensed ventricular paced rhythm. No PND. The chest x-ray did not show any acute abnormalities. On follow-up with the patient today, February [id number], he stated that he still short of breath. He felt slightly better yesterday. On examination he does have crackles in the right lung. No pedal edema noted. He is on Lasix at 40 mg IV 3 times a day. The creatinine is a slightly worse today. The pressure has been marginal but he's only on carvedilol as well as Lasix IV as well as Aldactone. I am going to decrease the dose of Lasix IV to 40 mg twice a day. We will continue monitor the kidney function and electrolytes. I would advise giving the patient for additional 24 hours. Objective - Vital Signs Vital signs: Vital Signs Temp 97.9 F 02/11/19 01:43 Pulse 69 02/11/19 01:43 Resp 18 02/11/19 07:05 BP 105/67 02/11/19 01:43 Pulse Ox 97 02/11/19 01:43 Intake & Output 02/10/19 02/11/19 02/11/19 18:59 06:59 18:59 Intake Total 440 840 Balance 440 840 Weight 90.718 kg Intake: Oral 440 840 Other: # Voids 3 3 - Constitutional General appearance: Present: no acute distress - Respiratory Respiratory: right: rales - Cardiovascular Rhythm: regular Heart sounds: normal: S1, S2 - Labs CBC & Chem 7: 02/11/19 06:22 Labs: Abnormal Lab Results - Last 24 Hours (Table) 02/10/19 02/10/19 02/10/19 Range/Units 14:23 16:35 20:14 Chloride (98-107) mmol/L Carbon Dioxide (22-30) mmol/L BUN (9-20) mg/dL Creatinine (0.66-1.25) mg/dL Glucose (74-99) mg/dL POC Glucose (mg/dL) 221 H 170 H 118 H (75-99) mg/dL 02/11/19 02/11/19 Range/Units 06:22 07:04 Chloride 97 L (98-107) mmol/L Carbon Dioxide 35 H (22-30) mmol/L BUN 50 H (9-20) mg/dL Creatinine 1.30 H (0.66-1.25) mg/dL Glucose 130 H (74-99) mg/dL POC Glucose (mg/dL) 138 H (75-99) mg/dL Assessment and Plan Assessment: Assessment #1 shortness of breath likely to be a combination of CHF exacerbation as well as COPD exacerbation #2 congestive heart failure exacerbation secondary to systolic dysfunction, acute on chronic #3 severe cardiomyopathy, ischemic, with EF of 20% on recent echocardiogram #4 status post by V AICD placement #5 severe underlying coronary artery disease and status post coronary revascularization as described above #6 multiple comorbid conditions Plan #1 decrease the dose of Lasix to 40 mg twice a day #2 continue the current medical regimen #3 monitor the kidney function and electrolytes #4 I would advise monitoring the patient for additional 24 hours Thank you for allowing us participate in his care
[2019-02-11] MEDS: NICOTINE 21MG/24HR PATCH TRANSDERM SCH (08:12)
[2019-02-11] MEDS: METHADONE 10 MG TAB PO SCH (08:13)
[2019-02-11] MEDS: FUROSEMIDE 10 MG/ML 4 ML VIAL IV SCH ×3 (08:13→21:08)
[2019-02-11] MEDS: predniSONE 50 MG TAB PO SCH (08:14)
[2019-02-11] MEDS: ATORVASTATIN 40 MG TAB PO SCH (08:14)
[2019-02-11] MEDS: SPIRONOLACTONE 25 MG TAB PO SCH (08:14)
[2019-02-11] MEDS: LORATADINE 10 MG TAB PO SCH (08:14)
[2019-02-11] MEDS: SACUBITRIL/VALSARTAN 24 MG-26 MG TABLET PO SCH ×2 (08:14→21:20)
[2019-02-11] MEDS: CARVEDILOL 3.125 MG TAB PO SCH ×2 (08:14→17:54)
[2019-02-11] MEDS: METHADONE 5 MG TAB PO SCH (08:14)
[2019-02-11] MEDS: FAMOTIDINE 20 MG TAB PO SCH (08:14)
[2019-02-11] MEDS: ASPIRIN 81 MG PO SCH (08:14)
[2019-02-11] MEDS: IPRATROPIUM-ALBUTEROL 3 ML NEB INHALATION SCH ×4 (08:16→21:02)
[2019-02-11] MEDS: BACITRACIN 500 UNIT/GM OINT 28.4 GM TUBE TOPICAL SCH ×4 (09:44→22:38)
[2019-02-11 11:55] LABS: Glucose,Whole Blood 142 mg/dL (75-99)
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
[2019-02-11] MEDS: ALPRAZolam 0.25 MG TAB PO PRN ×2 (15:59→23:16)
[2019-02-11 16:59] LABS: Glucose,Whole Blood 151 mg/dL (75-99)
[2019-02-11 20:27] LABS: Glucose,Whole Blood 146 mg/dL (75-99)
[2019-02-11] MEDS: MONTELUKAST 10 MG TAB PO SCH (21:15)
[2019-02-12 02:16] VITALS: RESP 16
[2019-02-12 06:59] LABS: Glucose,Whole Blood 89 mg/dL (75-99)
[2019-02-12 08:04] VITALS: BP 114/73; TEMP 97.7
[2019-02-12] MEDS: NICOTINE 21MG/24HR PATCH TRANSDERM SCH ×2 (08:29→08:32)
[2019-02-12] MEDS: predniSONE 50 MG TAB PO SCH (08:29)
[2019-02-12] MEDS: METHADONE 10 MG TAB PO SCH (08:29)
[2019-02-12] MEDS: SACUBITRIL/VALSARTAN 24 MG-26 MG TABLET PO SCH (08:29)
[2019-02-12] MEDS: FUROSEMIDE 10 MG/ML 4 ML VIAL IV SCH (08:30)
[2019-02-12] MEDS: ASPIRIN 81 MG PO SCH (08:31)
[2019-02-12] MEDS: BACITRACIN 500 UNIT/GM OINT 28.4 GM TUBE TOPICAL SCH (08:31)
[2019-02-12] MEDS: FAMOTIDINE 20 MG TAB PO SCH (08:31)
[2019-02-12] MEDS: SPIRONOLACTONE 25 MG TAB PO SCH (08:31)
[2019-02-12] MEDS: METHADONE 5 MG TAB PO SCH (08:31)
[2019-02-12] MEDS: LORATADINE 10 MG TAB PO SCH (08:31)
[2019-02-12] MEDS: ATORVASTATIN 40 MG TAB PO SCH (08:31)
[2019-02-12] MEDS: CARVEDILOL 3.125 MG TAB PO SCH (08:31)
[2019-02-12] MEDS: INSULIN ASPART (NovoLOG) 100 UNIT/ML VIAL SQ SCH ×2 (08:32→12:43)
[2019-02-12] MEDS: IPRATROPIUM-ALBUTEROL 3 ML NEB INHALATION SCH ×2 (08:41→12:06)
--- NOTE | 2019-02-12 10:36 | P.PN ---
Subjective This is a pleasant 58-year-old male past medical history significant for coronary artery disease s/p bypass grafting, ischemic cardiomyopathy s/p AICD, dyslipidemia, hypertension, COPD and former nicotine dependence. He follows in the office with Dr. Ch. He is currently being diuresed with lasix IV BID. No documented output. Blood pressure 114/73 heart rate 56 afebrile and maintaining oxygen saturation on nasal cannula. Labs pending. He is seen and examined laying flat in bed watching television. He states his breathing has improved since admission. He denies chest pain, dizziness or palpitations. He feels as though he is back to his baseline. GENERAL: Well-appearing, well-nourished and in no acute distress. NECK: Supple without JVD or thyromegaly. LUNGS: Breath sounds clear to auscultation bilaterally. Respiration equal and unlabored. No wheezes, rales or rhonchi. HEART: Regular rate and rhythm without murmurs, rubs or gallops. S1 and S2 heard. EXTREMITIES: Normal range of motion, no edema. No clubbing or cyanosis. Peripheral pulses intact. ASSESSMENT Acute on chronic systolic heart failure Acute exacerbation of COPD Severe ischemic cardiomyopathy, s/p AICD History of coronary artery disease Hypertension Dyslipidemia PLAN Follow up on renal function before discharge. Transition to oral diuretics. Shortness of breath has improved and lungs are clear today. No lower extremity swelling. Follow up with Dr. Ch upon discharge. Nurse Practitioner note has been reviewed, I agree with a documented findings and plan of care. Patient was seen and examined. Objective - Vital Signs Vital signs: Vital Signs Temp 97.7 F 02/12/19 07:00 Pulse 56 L 02/12/19 08:56 Resp 16 02/12/19 07:00 BP 114/73 02/12/19 07:00 Pulse Ox 98 02/12/19 07:00 Intake & Output 02/11/19 02/12/19 02/12/19 18:59 06:59 18:59 Intake Total 575 Balance 575 Intake: Oral 575 Other: Voiding Method Toilet # Voids 3 1 - Labs CBC & Chem 7: 02/11/19 06:22 Labs: Abnormal Lab Results - Last 24 Hours (Table) 02/11/19 02/11/19 02/11/19 Range/Units 11:44 16:46 20:15 POC Glucose (mg/dL) 142 H 151 H 146 H (75-99) mg/dL
[2019-02-12 10:52] LABS: Calcium 9.4 mg/dL (8.4-10.2); Potassium 4.2 mmol/L (3.5-5.1)
[2019-02-12 12:21] VITALS: PULSE 64
--- NOTE | 2019-02-12 13:07 | P.PN ---
Subjective Progress Note Date: 02/11/19 (Late entry note) Principal diagnosis: Acute COPD exacerbation Acute on chronic hypoxic respiratory failure Congestive heart failure acute on chronic systolic heart failure Component of acute diastolic heart failure Obstructive sleep apnea with History of coronary artery disease status post bypass 02/11/2019, patient seen and evaluated examined during the rounds patient r emains on 6 L oxygen cough congestion shortness breath is improved patient is gently being diuresed, patient remains on oral prednisone and bronchodilators likely will be discharged in next 24 hours patient will be arranged for home oxygen 6 L nasal cannula, it appears that he will require a bigger concentrator which can concentrate up to 6 L oxygen Objective - Vital Signs Vital signs: Vital Signs Temp 97.7 F 02/12/19 07:00 Pulse 64 02/12/19 12:20 Resp 16 02/12/19 07:00 BP 114/73 02/12/19 07:00 Pulse Ox 98 02/12/19 07:00 Intake & Output 02/11/19 02/12/19 02/12/19 18:59 06:59 18:59 Intake Total 575 240 Balance 575 240 Intake: Oral 575 240 Other: Voiding Method Toilet # Voids 3 1 - Exam - Constitutional General appearance: average body habitus, cooperative, disheveled, mild distress - EENT Eyes: EOMI, PERRLA, poor dentition, normal appearance ENT: hearing grossly normal Ears: bilateral: normal - Neck Neck: normal ROM Carotids: bilateral: upstroke normal, bruit absent Thyroid: bilateral: normal size - Respiratory Respiratory: bilateral: diminished - Cardiovascular Rhythm: regular Heart sounds: normal: S1, S2 - Gastrointestinal General gastrointestinal: decreased bowel sounds, soft - Integumentary Integumentary: normal - Neurologic Neurologic: CNII-XII intact - Musculoskeletal Musculoskeletal: gait normal, generalized weakness, strength equal bilaterally - Psychiatric Psychiatric: A&O x's 3, appropriate affect, intact judgment & insight - Labs CBC & Chem 7: 02/12/19 10:32 Labs: Abnormal Lab Results - Last 24 Hours (Table) 02/11/19 02/11/19 02/12/19 Range/Units 16:46 20:15 10:32 Chloride 96 L (98-107) mmol/L Carbon Dioxide 38 H (22-30) mmol/L BUN 51 H (9-20) mg/dL Glucose 112 H (74-99) mg/dL POC Glucose (mg/dL) 151 H 146 H (75-99) mg/dL Assessment and Plan Assessment: Acute COPD exacerbation Acute on chronic hypoxic respiratory failure Congestive heart failure acute on chronic systolic heart failure Component of acute diastolic heart failure Obstructive sleep apnea with History of coronary artery disease status post bypass Plan: Bronchodilator Oral prednisone Continue oxygen 5-6 L aim for saturation over 92% or above Continue gentle diuresis Sleep study as outpatient Other recommendations pending plan of care as per clinical response of the patient Time with Patient: Greater than 30
--- NOTE | 2019-02-12 13:08 | P.PN ---
Subjective Progress Note Date: 02/12/19 Principal diagnosis: Acute COPD exacerbation Acute on chronic hypoxic respiratory failure Congestive heart failure acute on chronic systolic heart failure Component of acute diastolic heart failure Obstructive sleep apnea with History of coronary artery disease status post bypass 02/12/2019, patient seen eval examined during the rounds labs reviewed medications reviewed care plan discussed the primary service prescription has been provided for 6 L concentrator patient likely will be discharged later on today 02/11/2019, patient seen and evaluated examined during the rounds patient remains on 6 L oxygen cough congestion shortness breath is improved patient is gently being diuresed, patient remains on oral prednisone and bronchodilators likely will be discharged in next 24 hours patient will be arranged for home oxygen 6 L nasal cannula, it appears that he will require a bigger concentrator which can concentrate up to 6 L oxygen Objective - Vital Signs Vital signs: Vital Signs Temp 97.7 F 02/12/19 07:00 Pulse 64 02/12/19 12:20 Resp 16 02/12/19 07:00 BP 114/73 02/12/19 07:00 Pulse Ox 98 02/12/19 07:00 Intake & Output 02/11/19 02/12/19 02/12/19 18:59 06:59 18:59 Intake Total 575 240 Balance 575 240 Intake: Oral 575 240 Other: Voiding Method Toilet # Voids 3 1 - Exam - Constitutional General appearance: average body habitus, cooperative, disheveled, mild distress - EENT Eyes: EOMI, PERRLA, poor dentition, normal appearance ENT: hearing grossly normal Ears: bilateral: normal - Neck Neck: normal ROM Carotids: bilateral: upstroke normal, bruit absent Thyroid: bilateral: normal size - Respiratory Respiratory: bilateral: diminished - Cardiovascular Rhythm: regular Heart sounds: normal: S1, S2 - Gastrointestinal General gastrointestinal: decreased bowel sounds, soft - Integumentary Integumentary: normal - Neurologic Neurologic: CNII-XII intact - Musculoskeletal Musculoskeletal: gait normal, generalized weakness, strength equal bilaterally - Psychiatric Psychiatric: A&O x's 3, appropriate affect, intact judgment & insight - Labs CBC & Chem 7: 02/12/19 10:32 Labs: Abnormal Lab Results - Last 24 Hours (Table) 02/11/19 02/11/19 02/12/19 Range/Units 16:46 20:15 10:32 Chloride 96 L (98-107) mmol/L Carbon Dioxide 38 H (22-30) mmol/L BUN 51 H (9-20) mg/dL Glucose 112 H (74-99) mg/dL POC Glucose (mg/dL) 151 H 146 H (75-99) mg/dL Assessment and Plan Assessment: Acute COPD exacerbation Acute on chronic hypoxic respiratory failure Congestive heart failure acute on chronic systolic heart failure Component of acute diastolic heart failure Obstructive sleep apnea with History of coronary artery disease status post bypass Plan: Bronchodilator Oral prednisone Continue oxygen 5-6 L aim for saturation over 92% or above Continue gentle diuresis Sleep study as outpatient Other recommendations pending plan of care as per clinical response of the patient Time with Patient: Greater than 30
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
[2019-02-12] MEDS ORDERED: FUROSEMIDE 40 MG TAB PO SCH (16:00)
[2019-02-13] MEDS ORDERED: FUROSEMIDE 40 MG TAB PO SCH (09:00)
== END 2019-02-12 15:19 | disposition home or self-care (01) | DRG 190 ==
LOC: EC 21:08 → 4SSUR 23:47 → OBSVTOIN 02-11 09:03
PROVIDERS: ADMIT Internal Medicine; ATTEND Internal Medicine
DX: J44.1 Chronic obstructive pulmonary disease with (acute) exacerbation (principal); J96.21 Acute and chronic respiratory failure with hypoxia; I50.43 Acute on chronic combined systolic (congestive) and diastolic (congestive) heart failure; I13.0 Hypertensive heart and chronic kidney disease with heart failure and stage 1 through stage 4 chronic kidney disease, or unspecified chronic kidney disease; E78.5 Hyperlipidemia, unspecified; F32.9 Major depressive disorder, single episode, unspecified; F40.240 Claustrophobia; G47.33 Obstructive sleep apnea (adult) (pediatric); G89.4 Chronic pain syndrome; I25.10 Atherosclerotic heart disease of native coronary artery without angina pectoris; I25.2 Old myocardial infarction; I25.5 Ischemic cardiomyopathy; I25.82 Chronic total occlusion of coronary artery; I27.20 Pulmonary hypertension, unspecified; N18.3 Chronic kidney disease, stage 3 (moderate); T20.09XD Burn of unspecified degree of multiple sites of head, face, and neck, subsequent encounter; Z87.891 Personal history of nicotine dependence; Z79.82 Long term (current) use of aspirin; Z79.891 Long term (current) use of opiate analgesic; Z79.899 Other long term (current) drug therapy; Z80.0 Family history of malignant neoplasm of digestive organs; Z80.6 Family history of leukemia; Z95.1 Presence of aortocoronary bypass graft; Z95.5 Presence of coronary angioplasty implant and graft; Z95.810 Presence of automatic (implantable) cardiac defibrillator; Z99.81 Dependence on supplemental oxygen; M54.5 Low back pain; Z79.52 Long term (current) use of systemic steroids
CPT/HCPCS: 36415; 80048; 83880; 84484; 93005; 94640; 96374; 99285

== ENCOUNTER 2019-04-20 21:12 | Emergency (ER) | payer OTHER ==
[2019-04-20] MEDS ORDERED: ALBUTEROL NEBULIZED 2.5 MG/3 ML INHALATION STA (21:31)
[2019-04-20] MEDS ORDERED: methylPREDNISolone SOD SUCCI 125 MG/2 ML VIAL IV STA (21:31)
--- NOTE | 2019-04-20 21:43 | ED ---
General Adult HPI - General Chief complaint: Shortness of Breath Stated complaint: Cough Time Seen by Provider: 04/20/19 21:23 Source: patient, RN notes reviewed, old records reviewed Mode of arrival: ambulatory Limitations: no limitations - History of Present Illness Initial comments: 58-year-old male history of congestive heart failure and COPD on home oxygen presenting for evaluation of productive cough and dyspnea. Patient's symptoms have progressed over the past 24 hours. He was exposed to a patient with community acquired pneumonia and is concerned he may have developed pneumonia. He reports a productive cough with yellow sputum. He has mild amount of chest pain which is worse with cough. No central radiating chest pain. Denies lower extremity swelling. Denies calf tenderness. Denies abdominal pain nausea vomiting. Denies fever or chills. Denies URI symptoms. - Related Data Home Medications Medication Instructions Recorded Confirmed Furosemide [Lasix] 40 mg PO DAILY 09/20/18 02/09/19 ALPRAZolam [Xanax] 0.25 mg PO TID PRN 12/04/18 02/09/19 Ipratropium/Albuterol Sulfate 1 puff INHALATION RT-QID 12/04/18 02/09/19 [Combivent Respimat Inhaler] Albuterol Inhaler [Ventolin Hfa 1 - 2 puff INHALATION RT-QID PRN 12/25/18 02/09/19 Inhaler] Carvedilol [Coreg] 3.125 mg PO BID 12/25/18 02/09/19 Loratadine [Claritin] 10 mg PO DAILY 02/09/19 02/09/19 Methadone HCl [Methadone Intensol] 115 mg PO DAILY 02/09/19 02/09/19 Sacubitril/Valsartan [Entresto 24 1 tab PO BID 02/09/19 02/09/19 mg-26 mg Tablet] Previous Rx's Medication Instructions Recorded Atorvastatin [Lipitor] 40 mg PO DAILY #30 tab 08/31/16 Aspirin 81 mg PO DAILY chew 01/09/18 Spironolactone [Aldactone] 25 mg PO DAILY #30 tab 01/09/18 Nitroglycerin Sl Tabs [Nitrostat] 0.4 mg SUBLINGUAL Q5M PRN #25 tab 09/24/18 Acetaminophen Tab [Tylenol] 650 mg PO Q6HR PRN tab 09/27/18 Famotidine [Pepcid] 20 mg PO DAILY #30 tab 09/27/18 Ipratropium-Albuterol Nebulize 3 ml INHALATION RT-QID #120 09/27/18 [Duoneb 0.5 mg-3 mg/3 ml Soln] ampul.neb Montelukast [Singulair] 10 mg PO HS #30 tab 09/27/18 Nicotine 21Mg/24Hr Patch [Habitrol] 1 patch TRANSDERM DAILY #30 patch 09/27/18 Bacitracin Oint 1 applic TOPICAL QID applic 02/12/19 predniSONE 0 mg PO DIRECTED #60 tab 02/12/19 Azithromycin [Zithromax Z-pack] 0 mg PO DIRECTED #6 tab 04/20/19 predniSONE 50 mg PO DAILY #5 tab 04/20/19 Allergies Allergy/AdvReac Type Severity Reaction Status Date / Time No Known Allergies Allergy Verified 04/20/19 21:16 Review of Systems ROS Statement: Those systems with pertinent positive or pertinent negative responses have been documented in the HPI. ROS Other: All systems not noted in ROS Statement are negative. Past Medical History Past Medical History: Coronary Artery Disease (CAD), Heart Failure, COPD, Hyper lipidemia, Hypertension, Myocardial Infarction ([place]), Respiratory Disorder Additional Past Medical History / Comment(s): Home oxygen which pt states he wears oxygen at 6L/NC at home, seasonal allergies, chronic low back pain Last Myocardial Infarction Date:: 2013 History of Any Multi-Drug Resistant Organisms: MRSA Date of last positivie culture/infection: 02/08/09 MDRO Source:: Leg Past Surgical History: Coronary Bypass/CABG, Heart Catheterization With Stent Additional Past Surgical History / Comment(s): CABG 2018- 3 vessel Past Anesthesia/Blood Transfusion Reactions: No Reported Reaction Additional Past Anesthesia/Blood Transfusion Reaction / Comment(s): Difficulty in breathing Date of Last Stent Placement:: 2013 Past Psychological History: Depression Smoking Status: Former smoker Past Alcohol Use History: None Reported Past Drug Use History: None Reported - Past Family History Father Family Medical History: Cancer Additional Family Medical History / Comment(s): Pancreatic CA Mother Family Medical History: Cancer Additional Family Medical History / Comment(s): Leukemia General Exam Limitations: no limitations General appearance: alert, in no apparent distress Head exam: Present: atraumatic, normocephalic Eye exam: Present: normal appearance, PERRL ENT exam: Present: normal exam Neck exam: Present: normal inspection. Absent: tenderness, meningismus Respiratory exam: Present: wheezes, decreased breath sounds. Absent: respiratory distress, accessory muscle use Cardiovascular Exam: Present: regular rate, normal rhythm GI/Abdominal exam: Present: soft. Absent: distended, tenderness Extremities exam: Present: normal inspection, normal capillary refill. Absent: pedal edema, calf tenderness Neurological exam: Present: alert, oriented X3, CN II-XII intact. Absent: motor sensory deficit Psychiatric exam: Present: normal affect, normal mood Skin exam: Present: warm, dry, intact. Absent: cyanosis, diaphoretic Course Vital Signs 04/20/19 04/20/19 04/20/19 21:13 21:41 21:48 Temperature 97.9 F Pulse Rate 69 72 74 Respiratory 26 H Rate Blood Pressure 125/73 O2 Sat by Pulse 99 Oximetry 04/20/19 22:07 Temperature Pulse Rate 63 Respiratory 20 Rate Blood Pressure 109/71 O2 Sat by Pulse 99 Oximetry EKG Findings - EKG Comments: EKG Findings:: Kasey sensed, ventricular paced rhythm rate of 64, [place] interval 132, QRS duration 184, QTC 548 Medical Decision Making - Medical Decision Making 58-year-old male history of COPD on home oxygen presents with productive cough and concern for pneumonia. Workup in the emergency Department is initiated, patient has a white blood cell count 9.3, hemoglobin 12.3, he is a CO2 of 34 consistent with chronic CO2 retention. He has creatinine of 1.44. Troponin negative BNP is elevated at 3990. His x-rays not concerning for pulmonary edema, there is no focal pneumonia, there is chronic changes with no acute process. Clinically the patient does not have CHF exacerbation at this time. He is afebrile. He is offered observation for treatment of COPD, he prefers discharge with outpatient treatment and he will return with worsening or changing symptoms. - Lab Data Result diagrams: 04/20/19 21:30 04/20/19 21:30 Lab Results 04/20/19 04/20/19 04/20/19 Range/Units 21:30 21:30 21:30 WBC 9.3 (3.8-10.6) k/uL RBC 3.88 L (4.30-5.90) m/uL Hgb 12.3 L (13.0-17.5) gm/dL Hct 37.0 L (39.0-53.0) % MCV 95.3 (80.0-100.0) fL MCH 31.7 (25.0-35.0) pg MCHC 33.2 (31.0-37.0) g/dL RDW 13.8 (11.5-15.5) % Plt Count 251 (150-450) k/uL Neutrophils % 65 % Lymphocytes % 21 % Monocytes % 8 % Eosinophils % 2 % Basophils % 3 % Neutrophils # 6.0 (1.3-7.7) k/uL Lymphocytes # 2.0 (1.0-4.8) k/uL Monocytes # 0.7 (0-1.0) k/uL Eosinophils # 0.2 (0-0.7) k/uL Basophils # 0.3 H (0-0.2) k/uL PT (9.0-12.0) sec INR (<1.2) APTT (22.0-30.0) sec Sodium 138 (137-145) mmol/L Potassium 4.4 (3.5-5.1) mmol/L Chloride 97 L (98-107) mmol/L Carbon Dioxide 34 H (22-30) mmol/L Anion Gap 7 mmol/L BUN 31 H (9-20) mg/dL Creatinine 1.44 H (0.66-1.25) mg/dL Est GFR (CKD-EPI)AfAm 61 (>60 ml/min/1.73 sqM) Est GFR (CKD-EPI)NonAf 52 (>60 ml/min/1.73 sqM) Glucose 121 H (74-99) mg/dL Plasma Lactic Acid Gary 1.1 (0.7-2.0) mmol/L Calcium 9.8 (8.4-10.2) mg/dL Magnesium 2.0 (1.6-2.3) mg/dL Total Bilirubin 0.5 (0.2-1.3) mg/dL AST 25 (17-59) U/L ALT 31 (21-72) U/L Alkaline Phosphatase 64 (38-126) U/L Troponin I (0.000-0.034) ng/mL NT-Pro-B Natriuret Pep pg/mL Total Protein 7.1 (6.3-8.2) g/dL Albumin 4.5 (3.5-5.0) g/dL 04/20/19 04/20/19 04/20/19 Range/Units 21:30 21:30 21:30 WBC (3.8-10.6) k/uL RBC (4.30-5.90) m/uL Hgb (13.0-17.5) gm/dL Hct (39.0-53.0) % MCV (80.0-100.0) fL MCH (25.0-35.0) pg MCHC (31.0-37.0) g/dL RDW (11.5-15.5) % Plt Count (150-450) k/uL Neutrophils % % Lymphocytes % % Monocytes % % Eosinophils % % Basophils % % Neutrophils # (1.3-7.7) k/uL Lymphocytes # (1.0-4.8) k/uL Monocytes # (0-1.0) k/uL Eosinophils # (0-0.7) k/uL Basophils # (0-0.2) k/uL PT 11.0 (9.0-12.0) sec INR 1.0 (<1.2) APTT 22.2 (22.0-30.0) sec Sodium (137-145) mmol/L Potassium (3.5-5.1) mmol/L Chloride (98-107) mmol/L Carbon Dioxide (22-30) mmol/L Anion Gap mmol/L BUN (9-20) mg/dL Creatinine (0.66-1.25) mg/dL Est GFR (CKD-EPI)AfAm (>60 ml/min/1.73 sqM) Est GFR (CKD-EPI)NonAf (>60 ml/min/1.73 sqM) Glucose (74-99) mg/dL Plasma Lactic Acid Gary (0.7-2.0) mmol/L Calcium (8.4-10.2) mg/dL Magnesium (1.6-2.3) mg/dL Total Bilirubin (0.2-1.3) mg/dL AST (17-59) U/L ALT (21-72) U/L Alkaline Phosphatase (38-126) U/L Troponin I 0.020 (0.000-0.034) ng/mL NT-Pro-B Natriuret Pep 3990 pg/mL Total Protein (6.3-8.2) g/dL Albumin (3.5-5.0) g/dL Disposition Clinical Impression: COPD (chronic obstructive pulmonary disease) Disposition: HOME SELF-CARE Condition: Fair Instructions (If sedation given, give patient instructions): COPD (Chronic Obstructive Pulmonary Disease) (ED) Prescriptions: predniSONE 50 mg PO DAILY #5 tab Azithromycin [Zithromax Z-pack] 0 mg PO DIRECTED #6 tab Is patient prescribed a controlled substance at d/c from ED?: No Referrals: Jame Bautista MD [Primary Care Provider] - 1-2 days Jose L Gong MD [STAFF PHYSICIAN] - 1-2 days Time of Disposition: 23:06
[2019-04-20 22:06] LABS: Basophils # (A) 0.3 k/uL (0-0.2); Basophils % (A) 3 %; Eosinophils # (A) 0.2 k/uL (0-0.7); Eosinophils % (A) 2 %; HGB 12.3 gm/dL (13.0-17.5); Lymphocytes % (A) 21 %; MCH 31.7 pg (25.0-35.0); MCHC 33.2 g/dL (31.0-37.0); MCV 95.3 fL (80.0-100.0); Mean Platelet Volume 6.7; Monocytes # (A) 0.7 k/uL (0-1.0); Monocytes % (A) 8 %; Neutrophils % (A) 65 %; Platelet Count 251 k/uL (150-450); RBC 3.88 m/uL (4.30-5.90); RDW 13.8 % (11.5-15.5); WBC 9.3 k/uL (3.8-10.6)
[2019-04-20 22:17] LABS: Albumin 4.5 g/dL (3.5-5.0); Calcium 9.8 mg/dL (8.4-10.2); Potassium 4.4 mmol/L (3.5-5.1); Total Bilirubin 0.5 mg/dL (0.2-1.3); Total Protein 7.1 g/dL (6.3-8.2)
[2019-04-20 22:27] LABS: Partial Thromboplastin Time 22.2 sec (22.0-30.0)
--- NOTE | 2019-04-20 22:28 | XR ---
EXAMINATION TYPE: XR chest 2V DATE OF EXAM: 04/20/2019 COMPARISON: 02/09/2019 HISTORY: Difficulty breathing TECHNIQUE: Frontal and lateral views of the chest are obtained. FINDINGS: There is no heart failure nor confluent pneumonic infiltrate. There is slight elevated rig ht diaphragm. There are sternal wires. There is a left axillary pacemaker. There are chest leads. Cos tophrenic angles are clear. IMPRESSION: Chronic mild elevated right diaphragm. No acute lung disease. No change. No heart failur e.
[2019-04-20 23:26] VITALS: BP 101/65; PULSE 53; RESP 15; TEMP 98.1
== END 2019-04-20 23:20 | disposition home or self-care (01) ==
LOC: EC 21:12
DX: J44.9 Chronic obstructive pulmonary disease, unspecified (principal); R79.89 Other specified abnormal findings of blood chemistry; I25.10 Atherosclerotic heart disease of native coronary artery without angina pectoris; I11.0 Hypertensive heart disease with heart failure; I50.9 Heart failure, unspecified; I25.2 Old myocardial infarction; G89.29 Other chronic pain; Z87.891 Personal history of nicotine dependence; Z79.891 Long term (current) use of opiate analgesic; Z79.899 Other long term (current) drug therapy; Z95.1 Presence of aortocoronary bypass graft; Z95.5 Presence of coronary angioplasty implant and graft; Z86.14 Personal history of Methicillin resistant Staphylococcus aureus infection; Z99.81 Dependence on supplemental oxygen
CPT/HCPCS: 36415; 94640; 93005; 83880; 80053; 83605; 83735; 84484; 85025; 85610; 85730; 87040; 71046; 99285; 96374; J2930

== ENCOUNTER 2019-04-22 04:19 | Inpatient (IN) | payer OTHER ==
[2019-04-22] MEDS ORDERED: ALBUTEROL NEBULIZED 2.5 MG/3 ML INHALATION STA (04:46)
[2019-04-22] MEDS ORDERED: guaiFENesin 600 MG TABLET.ER PO STA (04:46)
[2019-04-22] MEDS ORDERED: SODIUM CHLORIDE 0.9% 500 ML 500 ML IV STA (04:46)
[2019-04-22] MEDS ORDERED: IPRATROPIUM 0.5 MG/2.5 ML NEBU INHALATION STA (04:46)
--- NOTE | 2019-04-22 05:01 | ED ---
General Adult HPI - General Chief complaint: Shortness of Breath Stated complaint: MARYA,throat issues Time Seen by Provider: 04/22/19 04:21 Source: patient, RN notes reviewed, old records reviewed Mode of arrival: ambulatory Limitations: no limitations - History of Present Illness Initial comments: 58-year-old male presenting for evaluation of cough and increased sputum production. Patient is COPD. He was seen in the emergency department yesterday with cough and increased sputum production. He was discharged home at that time and has had increasing symptoms he feels as though he has mucus stuck in the back of his throat. He has been coughing all day with associated dyspnea. No chest pain. No lower extremity pain or swelling. No abdominal pain nausea vomiting. No fever chills. - Related Data Home Medications Medication Instructions Recorded Confirmed Furosemide [Lasix] 40 mg PO DAILY 09/20/18 02/09/19 ALPRAZolam [Xanax] 0.25 mg PO TID PRN 12/04/18 02/09/19 Ipratropium/Albuterol Sulfate 1 puff INHALATION RT-QID 12/04/18 02/09/19 [Combivent Respimat Inhaler] Albuterol Inhaler [Ventolin Hfa 1 - 2 puff INHALATION RT-QID PRN 12/25/18 02/09/19 Inhaler] Carvedilol [Coreg] 3.125 mg PO BID 12/25/18 02/09/19 Loratadine [Claritin] 10 mg PO DAILY 02/09/19 02/09/19 Methadone HCl [Methadone Intensol] 115 mg PO DAILY 02/09/19 02/09/19 Sacubitril/Valsartan [Entresto 24 1 tab PO BID 02/09/19 02/09/19 mg-26 mg Tablet] Previous Rx's Medication Instructions Recorded Atorvastatin [Lipitor] 40 mg PO DAILY #30 tab 08/31/16 Aspirin 81 mg PO DAILY chew 01/09/18 Spironolactone [Aldactone] 25 mg PO DAILY #30 tab 01/09/18 Nitroglycerin Sl Tabs [Nitrostat] 0.4 mg SUBLINGUAL Q5M PRN #25 tab 09/24/18 Acetaminophen Tab [Tylenol] 650 mg PO Q6HR PRN tab 09/27/18 Famotidine [Pepcid] 20 mg PO DAILY #30 tab 09/27/18 Ipratropium-Albuterol Nebulize 3 ml INHALATION RT-QID #120 09/27/18 [Duoneb 0.5 mg-3 mg/3 ml Soln] ampul.neb Montelukast [Singulair] 10 mg PO HS #30 tab 09/27/18 Nicotine 21Mg/24Hr Patch [Habitrol] 1 patch TRANSDERM DAILY #30 patch 09/27/18 Bacitracin Oint 1 applic TOPICAL QID applic 02/12/19 predniSONE 0 mg PO DIRECTED #60 tab 02/12/19 Azithromycin [Zithromax Z-pack] 0 mg PO DIRECTED #6 tab 04/20/19 predniSONE 50 mg PO DAILY #5 tab 04/20/19 Allergies Allergy/AdvReac Type Severity Reaction Status Date / Time No Known Allergies Allergy Verified 04/22/19 04:27 Review of Systems ROS Statement: Those systems with pertinent positive or pertinent negative responses have been documented in the HPI. ROS Other: All systems not noted in ROS Statement are negative. Past Medical History Past Medical History: Coronary Artery Disease (CAD), Heart Failure, COPD, Hyperlipidemia, Hypertension, Myocardial Infarction ([place]), Respiratory Disorder Additional Past Medical History / Comment(s): Home oxygen which pt states he wears oxygen at 6L/NC at home, seasonal allergies, chronic low back pain Last Myocardial Infarction Date:: 2013 History of Any Multi-Drug Resistant Organisms: MRSA Date of last positivie culture/infection: 02/08/09 MDRO Source:: Leg Past Surgical History: Coronary Bypass/CABG, Heart Catheterization With Stent Additional Past Surgical History / Comment(s): CABG 2018- 3 vessel Past Anesthesia/Blood Transfusion Reactions: No Reported Reaction Additional Past Anesthesia/Blood Transfusion Reaction / Comment(s): Difficulty in breathing Date of Last Stent Placement:: 2013 Past Psychological History: Depression Smoking Status: Former smoker Past Alcohol Use History: None Reported Past Drug Use History: None Reported - Past Family History Father Family Medical History: Cancer Additional Family Medical History / Comment(s): Pancreatic CA Mother Family Medical History: Cancer Additional Family Medical History / Comment(s): Leukemia General Exam Limitations: no limitations General appearance: alert, in no apparent distress Head exam: Present: atraumatic, normocephalic Eye exam: Present: normal appearance, PERRL ENT exam: Present: mucous membranes dry, other (Posterior oropharynx is clear) Neck exam: Present: normal inspection. Absent: tenderness, meningismus Respiratory exam: Present: wheezes, decreased breath sounds. Absent: stridor Cardiovascular Exam: Present: regular rate, normal rhythm GI/Abdominal exam: Present: soft. Absent: distended, tenderness Extremities exam: Present: normal inspection, normal capillary refill. Absent: pedal edema Neurological exam: Present: alert, oriented X3, CN II-XII intact. Absent: motor sensory deficit Psychiatric exam: Present: normal affect, normal mood Skin exam: Present: warm, dry, intact. Absent: cyanosis, diaphoretic Course Vital Signs 04/22/19 04/22/19 04/22/19 04:25 04:37 05:02 Temperature 97.7 F Pulse Rate 71 74 Respiratory 20 22 Rate Blood Pressure 111/70 O2 Sat by Pulse 98 Oximetry 04/22/19 05:53 Temperature Pulse Rate 59 L Respiratory 18 Rate Blood Pressure 117/73 O2 Sat by Pulse 99 Oximetry Medical Decision Making - Medical Decision Making 58-year-old male history of COPD presents for second ER visit with cough and dyspnea. Cough is productive and patient feels that he is sputum in his throat. Denies fever or chills. X-rays obtained, negative for focal pneumonia. Patient has mild leukocytosis. Stable hemoglobin. He has been up trending creatinine at 2. From 1.44 yesterday. He will be treated with IV hydration all patient does have history of congestive heart failure so this will be watched closely. Patient will be admitted for treatment of COPD exacerbation. Pulmo nology is placed on consult. Case discussed with admitting physician. - Lab Data Result diagrams: 04/22/19 05:04 04/22/19 05:04 Lab Results 04/22/19 04/22/19 Range/Units 05:04 05:04 WBC 11.7 H (3.8-10.6) k/uL RBC 3.63 L (4.30-5.90) m/uL Hgb 11.5 L (13.0-17.5) gm/dL Hct 34.3 L (39.0-53.0) % MCV 94.7 (80.0-100.0) fL MCH 31.7 (25.0-35.0) pg MCHC 33.5 (31.0-37.0) g/dL RDW 13.6 (11.5-15.5) % Plt Count 225 (150-450) k/uL Neutrophils % 75 % Lymphocytes % 15 % Monocytes % 8 % Eosinophils % 0 % Basophils % 0 % Neutrophils # 8.8 H (1.3-7.7) k/uL Lymphocytes # 1.8 (1.0-4.8) k/uL Monocytes # 0.9 (0-1.0) k/uL Eosinophils # 0.0 (0-0.7) k/uL Basophils # 0.0 (0-0.2) k/uL Sodium 135 L (137-145) mmol/L Potassium 4.1 (3.5-5.1) mmol/L Chloride 95 L (98-107) mmol/L Carbon Dioxide 32 H (22-30) mmol/L Anion Gap 8 mmol/L BUN 42 H (9-20) mg/dL Creatinine 2.06 H (0.66-1.25) mg/dL Est GFR (CKD-EPI)AfAm 39 (>60 ml/min/1.73 sqM) Est GFR (CKD-EPI)NonAf 34 (>60 ml/min/1.73 sqM) Glucose 103 H (74-99) mg/dL Calcium 9.4 (8.4-10.2) mg/dL Total Bilirubin 0.5 (0.2-1.3) mg/dL AST 25 (17-59) U/L ALT 24 (21-72) U/L Alkaline Phosphatase 57 (38-126) U/L Total Protein 6.7 (6.3-8.2) g/dL Albumin 4.2 (3.5-5.0) g/dL Disposition Clinical Impression: COPD (chronic obstructive pulmonary disease) Disposition: ADMITTED IP TO THIS [facility] Condition: Stable Is patient prescribed a controlled substance at d/c from ED?: No Referrals: Jame Bautista MD [Primary Care Provider] - 1-2 days Decision to Admit Reason: Admit from EC Decision Date: 04/22/19 Decision Time: 05:59
--- NOTE | 2019-04-22 05:13 | XR ---
EXAMINATION TYPE: XR chest 2V DATE OF EXAM: 04/22/2019 COMPARISON: 04/20/2019 HISTORY: Difficulty breathing TECHNIQUE: Frontal and lateral views of the chest are obtained. FINDINGS: There is no heart failure nor confluent pneumonic infiltrate. Costophrenic angles are johnson r. There is a left axillary pacemaker. There are sternal wires. There is slight elevated right diaphr agm. IMPRESSION: No active cardiopulmonary disease. No change.
[2019-04-22 05:42] LABS: Basophils % (A) 0 %; Eosinophils % (A) 0 %; HCT 34.3 % (39.0-53.0); HGB 11.5 gm/dL (13.0-17.5); Lymphocytes # (A) 1.8 k/uL (1.0-4.8); Lymphocytes % (A) 15 %; MCH 31.7 pg (25.0-35.0); MCHC 33.5 g/dL (31.0-37.0); MCV 94.7 fL (80.0-100.0); Mean Platelet Volume 6.8; Monocytes # (A) 0.9 k/uL (0-1.0); Monocytes % (A) 8 %; Neutrophils # (A) 8.8 k/uL (1.3-7.7); Neutrophils % (A) 75 %; Platelet Count 225 k/uL (150-450); RBC 3.63 m/uL (4.30-5.90); RDW 13.6 % (11.5-15.5); WBC 11.7 k/uL (3.8-10.6)
[2019-04-22 05:53] LABS: Albumin 4.2 g/dL (3.5-5.0); Calcium 9.4 mg/dL (8.4-10.2); Potassium 4.1 mmol/L (3.5-5.1); Total Bilirubin 0.5 mg/dL (0.2-1.3); Total Protein 6.7 g/dL (6.3-8.2)
[2019-04-22] MEDS ORDERED: IPRATROPIUM-ALBUTEROL 3 ML NEB INHALATION PRN (05:54)
[2019-04-22] MEDS: SODIUM CHLORIDE 0.9% 1,000 ML IV SCH (06:25)
[2019-04-22] MEDS: AZITHROMYCIN 500 MG TAB PO SCH (07:29)
[2019-04-22] MEDS: guaiFENesin 600 MG TABLET.ER PO SCH ×2 (07:29→20:42)
[2019-04-22] MEDS: IPRATROPIUM-ALBUTEROL 3 ML NEB INHALATION SCH ×4 (08:13→20:09)
[2019-04-22] MEDS ORDERED: predniSONE 20 MG TAB PO SCH (09:00)
[2019-04-22] MEDS ORDERED: FAMOTIDINE 20 MG/2 ML VIAL IV SCH (09:00)
[2019-04-22] MEDS ORDERED: PNEUMOCOCCAL VACC-PNEUMOVAX 23 25 MCG/0.5 ML VIAL IM ONE (09:05)
[2019-04-22] MEDS ORDERED: NITROGLYCERIN SL TABS 0.4 MG TAB SUBLINGUAL PRN (09:42)
[2019-04-22] MEDS ORDERED: FAMOTIDINE 20 MG TAB PO SCH (09:45)
--- NOTE | 2019-04-22 10:24 | CONS ---
CONSULTATION Beto Goodman is a 58-year-old male who presented to the ED with increasing shortness of breath of about 2-3 weeks duration. He had recently been on steroids systemically improved initially and then started to worsen. He feels like there is mucus stuck in the back of his throat. He is coughing and wheezing. He has more shortness of breath, was seen in the ER and admitted for further evaluation and management. He denied any fever, chills or rigors. PAST MEDICAL HISTORY: Positive for coronary artery disease, status post 3-vessel coronary artery bypass in 2018, history of cardiac cath with stent placement, history of ischemic cardiomyopathy with an ejection fraction of 20%, history of obstructive sleep apnea for which he is unable to tolerate CPAP and wears a Breathe Right nose strep. History of COPD. History of hay fever as a child. FAMILY HISTORY: Cough. Family history is positive for pancreatic cancer in his father, leukemia in his mother. SOCIAL HISTORY: The patient is a former smoker. Does not drink alcohol excessively. REVIEW OF SYSTEMS: Positive for obesity. MEDICATIONS: Prior to admission were prednisone, spironolactone, and Crestor, Nitrostat, Habitrol, Singulair, methadone, Combivent, DuoNeb, Lasix, Pepcid, Coreg, azithromycin, Xanax, acetaminophen, and albuterol. PHYSICAL EXAMINATION: He was sitting in bed. He was short of breath with moderate respiratory distress. Respiratory rate is 16, pulse rate is 60, blood pressure 117/73, O2 saturation on 2 L by nasal cannula is 99%. HEENT: Reveals pupils that are equal. There is redundant tissue in the posterior pharynx. Chest reveals decreased breath sounds. Prolonged expiration. Expiratory wheeze. Cardiovascular system reveals an S1, S2. Abdomen is soft. There is 1+ pedal edema. White count is 11.7, hemoglobin of 11.5, eosinophil count today is 0. However, on 04/20/2019, it was 0.2, in February 0.4, in August of 2016 it was 2.3000 and August of 2016 prior to that, it was 0.6000. Chest x-ray shows no discrete infiltrate. Electrolytes show sodium 135, potassium 4.1, chloride 95, bicarb 32, BUN 42, creatinine 2.06. IMPRESSION: 1. Severe persistent asthma with eosinophilic-type with acute exacerbation. 2. Baseline chronic obstructive pulmonary disease is likely. 3. Cardiomyopathy. 4. Obstructive sleep apnea that is untreated. At this point in time, would keep him on IV and aerosolized steroids montelukast. Consider him for an anti IL 5 biologic as an outpatient in the form of , optimize his cardiac medications and fluid status. Depending on how he does, we shall make further changes to his care. HEATH / GURMEETN: [id number] /
[2019-04-22] MEDS: METHADONE 10 MG TAB PO SCH (10:28)
[2019-04-22] MEDS: SPIRONOLACTONE 25 MG TAB PO SCH (10:30)
[2019-04-22] MEDS: SACUBITRIL/VALSARTAN 24 MG-26 MG TABLET PO SCH ×2 (10:30→20:42)
[2019-04-22] MEDS: FUROSEMIDE 40 MG TAB PO SCH (10:30)
[2019-04-22] MEDS: CARVEDILOL 3.125 MG TAB PO SCH ×2 (10:30→17:57)
[2019-04-22] MEDS: HEPARIN SODIUM,PORCINE 5,000 UNIT/ML 1 ML VIAL SQ SCH ×2 (10:31→20:42)
[2019-04-22] MEDS: NICOTINE 21MG/24HR PATCH TRANSDERM SCH ×2 (10:31→10:32)
[2019-04-22] MEDS: methylPREDNISolone SOD SUCCI 125 MG/2 ML VIAL IV SCH ×3 (12:42→22:40)
[2019-04-22] MEDS: FLUTICASONE 50MCG/SPRAY NASAL 16GM EA NOSTRIL SCH (12:43)
--- NOTE | 2019-04-22 13:46 | CT ---
EXAMINATION TYPE: CT chest wo con DATE OF EXAM: 04/22/2019 COMPARISON: 08/30/2016 HISTORY: Cough and shortness of breath CT DLP: 209 mGycm High-resolution noncontrast CT of the chest was performed with the patient in the prone and supine po sitions. Lung and mediastinal window settings are submitted. The lungs appear to be well-aerated. I do not see evidence for fibrotic change. Moderate upper lobe emphysematous changes seen. There is no evidence for bronchiectasis, groundglass infiltrate, nodule or mass. No pleural effusion is identified. I do not see evidence for hilar or mediastinal mass or adenopathy. IMPRESSION: 1.Moderate upper lobe emphysematous changes seen. 2. No evidence for fibrosis. 3. Cardiomegaly.
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
[2019-04-22] MEDS: BUDESONIDE 0.5 MG/2 ML NEBU INHALATION SCH (20:09)
[2019-04-22] MEDS: MONTELUKAST 10 MG TAB PO SCH ×2 (20:42→20:43)
[2019-04-22] MEDS: ALPRAZolam 0.25 MG TAB PO PRN (22:40)
[2019-04-23] MEDS: SODIUM CHLORIDE 0.9% 1,000 ML IV SCH (01:21)
[2019-04-23] MEDS: methylPREDNISolone SOD SUCCI 125 MG/2 ML VIAL IV SCH ×3 (05:52→17:37)
[2019-04-23] MEDS: BUDESONIDE 0.5 MG/2 ML NEBU INHALATION SCH ×2 (07:40→19:50)
[2019-04-23] MEDS: IPRATROPIUM-ALBUTEROL 3 ML NEB INHALATION SCH ×4 (07:40→19:50)
[2019-04-23] MEDS: SACUBITRIL/VALSARTAN 24 MG-26 MG TABLET PO SCH ×2 (08:00→20:50)
[2019-04-23] MEDS: FAMOTIDINE 20 MG TAB PO SCH (08:00)
[2019-04-23] MEDS: MULTIVITAMINS, THERA 1 EACH TAB PO SCH (08:00)
[2019-04-23] MEDS: FUROSEMIDE 40 MG TAB PO SCH (08:00)
[2019-04-23] MEDS: ATORVASTATIN 40 MG TAB PO SCH (08:00)
[2019-04-23] MEDS: AZITHROMYCIN 500 MG TAB PO SCH (08:00)
[2019-04-23] MEDS: NICOTINE 21MG/24HR PATCH TRANSDERM SCH (08:00)
[2019-04-23] MEDS: CARVEDILOL 3.125 MG TAB PO SCH ×2 (08:00→17:36)
[2019-04-23] MEDS: SPIRONOLACTONE 25 MG TAB PO SCH (08:00)
[2019-04-23] MEDS: METHADONE 10 MG TAB PO SCH (08:00)
[2019-04-23] MEDS: guaiFENesin 600 MG TABLET.ER PO SCH ×2 (08:00→20:50)
[2019-04-23] MEDS: FLUTICASONE 50MCG/SPRAY NASAL 16GM EA NOSTRIL SCH (08:02)
[2019-04-23] MEDS: HEPARIN SODIUM,PORCINE 5,000 UNIT/ML 1 ML VIAL SQ SCH ×2 (08:07→20:50)
[2019-04-23] MEDS: ALPRAZolam 0.25 MG TAB PO PRN ×2 (10:56→22:02)
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
[2019-04-23] MEDS: MONTELUKAST 10 MG TAB PO SCH ×2 (20:50→20:51)
[2019-04-23] MEDS: predniSONE 20 MG TAB PO SCH (21:05)
--- NOTE | 2019-04-23 22:24 | PN ---
PROGRESS NOTE DATE OF SERVICE: 04/23/2019 This patient has been hemodynamically stable. He is less short of breath. On physical examination, his vitals are stable. He is afebrile. His chest reveals prolonged exhalation with expiratory wheeze only on forced exhalation. Cardiovascular system is in S1, S2. Abdomen is soft. There is trace pedal edema. Labs were reviewed. IMPRESSION AT THIS TIME: 1. Severe persistent asthma of eosinophilic phenotype with acute exacerbation. 2. Chronic obstructive pulmonary disease. 3. Ischemic cardiomyopathy. Continue to optimize his fluid status. Switch him to oral steroids. Increase his activity level. He may be a candidate for an anti-IL5 such as Fasenra as an outpatient. He was counseled regarding his condition and this approach and has a fair understanding of our recommendations. I would like to thank you for allowing me the privilege of participating in his care. HEATH / BRUCE: [id number] /
[2019-04-24 05:16] VITALS: BP 137/71; RESP 20; TEMP 97.4
[2019-04-24] MEDS: SPIRONOLACTONE 25 MG TAB PO SCH (07:32)
[2019-04-24] MEDS: MULTIVITAMINS, THERA 1 EACH TAB PO SCH (07:32)
[2019-04-24] MEDS: FAMOTIDINE 20 MG TAB PO SCH (07:32)
[2019-04-24] MEDS: NICOTINE 21MG/24HR PATCH TRANSDERM SCH (07:32)
[2019-04-24] MEDS: ATORVASTATIN 40 MG TAB PO SCH (07:32)
[2019-04-24] MEDS: FUROSEMIDE 40 MG TAB PO SCH (07:32)
[2019-04-24] MEDS: guaiFENesin 600 MG TABLET.ER PO SCH (07:32)
[2019-04-24] MEDS: CARVEDILOL 3.125 MG TAB PO SCH (07:32)
[2019-04-24] MEDS: predniSONE 20 MG TAB PO SCH (07:32)
[2019-04-24] MEDS: AZITHROMYCIN 500 MG TAB PO SCH (07:33)
[2019-04-24] MEDS: HEPARIN SODIUM,PORCINE 5,000 UNIT/ML 1 ML VIAL SQ SCH (07:33)
[2019-04-24] MEDS: METHADONE 10 MG TAB PO SCH (07:33)
[2019-04-24] MEDS: FLUTICASONE 50MCG/SPRAY NASAL 16GM EA NOSTRIL SCH (07:38)
[2019-04-24] MEDS: SACUBITRIL/VALSARTAN 24 MG-26 MG TABLET PO SCH (07:42)
[2019-04-24] MEDS: IPRATROPIUM-ALBUTEROL 3 ML NEB INHALATION SCH ×2 (08:24→11:57)
[2019-04-24] MEDS: BUDESONIDE 0.5 MG/2 ML NEBU INHALATION SCH (08:24)
[2019-04-24 08:45] LABS: HCT 34.7 % (39.0-53.0); HGB 11.3 gm/dL (13.0-17.5); MCH 31.5 pg (25.0-35.0); MCHC 32.6 g/dL (31.0-37.0); MCV 96.5 fL (80.0-100.0); Mean Platelet Volume 6.8; Platelet Count 203 k/uL (150-450); RDW 13.5 % (11.5-15.5); WBC 11.6 k/uL (3.8-10.6)
[2019-04-24 08:57] LABS: African American GFR (CKD) >90 (>60 ml/min/1.73 sqM); Anion Gap 7 mmol/L; Blood Urea Nitrogen 28 mg/dL (9-20); Calcium 9.5 mg/dL (8.4-10.2); Carbon Dioxide 29 mmol/L (22-30); Chloride 102 mmol/L (98-107); Glucose 141 mg/dL (74-99); Non-African American GFR(CKD) >90 (>60 ml/min/1.73 sqM); Potassium 4.2 mmol/L (3.5-5.1); Sodium 138 mmol/L (137-145)
[2019-04-24] MEDS ORDERED: SALINE NASAL GEL 14.1 GM TUBE TOPICAL PRN (09:41)
[2019-04-24] MEDS ORDERED: BENZOCAINE/MENTHOL LOZENG 1 EACH LOZENGE MUCOUS MEM PRN (09:41)
--- NOTE | 2019-04-24 11:33 | PN ---
PROGRESS NOTE Covering for Dr. Jose L Gong. DATE OF SERVICE: 04/24/2019 The patient is a 58-year-old male who is seen ambulating in the room. Denies any new complaints. Patient feels his breathing is at baseline. Patient is hemodynamically stable, afebrile, in no acute distress. PHYSICAL EXAM: VITAL SIGNS: Temperature 97.4, heart rate 84, respiratory rate is 20, blood pressure is 137/71, O2 sats 95% on documented O2 at 5 L. However, patient is ambulating without any oxygen on. HEENT. Head is normocephalic, atraumatic. NECK: Is supple. Trachea is midline. LUNGS: With decreased breath sounds. HEART: S1, S2 are heard. Not tachycardic. ABDOMEN: Soft. Bowel sounds are positive. EXTREMITIES: With no edema. NEUROLOGIC: Patient is alert and oriented. LABS: White count 11.6, hemoglobin 11.3, hematocrit 34.7 with 203,000 platelets. Sodium is 138, potassium is 4.2, chloride is 102, CO2 is 29. Anion gap is 7. BUN is 28, creatinine 0.83. Glucose 141. Calcium is 9.5. No new imaging to review. IMPRESSION: 1. Severe persistent asthma of eosinophilic phenotype with acute exacerbation. 2. Chronic obstructive pulmonary disease. 3. Ischemic cardiomyopathy. PLAN: Continue current medications which have been reviewed. Continue the oral steroids. Again, patient may be a candidate for anti-IL5 such as Fasenra as an outpatient and again this was reviewed with the patient. The patient has also been instructed to follow up with Dr. Gong within a week of discharge from the hospital. In the interim, we will follow patient closely with you making further changes as necessary. MMODL / IJN: [id number] /
[2019-04-24 12:02] VITALS: PULSE 76
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
== END 2019-04-24 13:54 | disposition home or self-care (01) | DRG 202 ==
LOC: EC 04:19 → 4MS4W 05:56 → OBSVTOIN 04-24 08:47
PROVIDERS: ADMIT Family Medicine; ATTEND Family Medicine
DX: J45.51 Severe persistent asthma with (acute) exacerbation (principal); J44.1 Chronic obstructive pulmonary disease with (acute) exacerbation; I13.0 Hypertensive heart and chronic kidney disease with heart failure and stage 1 through stage 4 chronic kidney disease, or unspecified chronic kidney disease; J96.11 Chronic respiratory failure with hypoxia; N17.9 Acute kidney failure, unspecified; I50.32 Chronic diastolic (congestive) heart failure; N18.3 Chronic kidney disease, stage 3 (moderate); D72.829 Elevated white blood cell count, unspecified; E78.5 Hyperlipidemia, unspecified; G47.33 Obstructive sleep apnea (adult) (pediatric); G89.4 Chronic pain syndrome; I25.10 Atherosclerotic heart disease of native coronary artery without angina pectoris; I25.2 Old myocardial infarction; I25.5 Ischemic cardiomyopathy; F32.9 Major depressive disorder, single episode, unspecified; J30.2 Other seasonal allergic rhinitis; M54.5 Low back pain; Z79.51 Long term (current) use of inhaled steroids; Z79.82 Long term (current) use of aspirin; Z79.891 Long term (current) use of opiate analgesic; Z79.899 Other long term (current) drug therapy; Z95.1 Presence of aortocoronary bypass graft; Z95.5 Presence of coronary angioplasty implant and graft; Z95.810 Presence of automatic (implantable) cardiac defibrillator; Z99.81 Dependence on supplemental oxygen; Z86.14 Personal history of Methicillin resistant Staphylococcus aureus infection; Z87.891 Personal history of nicotine dependence; Z80.0 Family history of malignant neoplasm of digestive organs; Z80.6 Family history of leukemia
CPT/HCPCS: 36415; 71046; 71250; 80048; 80053; 85025; 85027; 87070; 87205; 90732; 94640; 94667; 94760; 96360; 99285

== ENCOUNTER → 2019-06-26 | Outpatient (CLI) | payer OTHER ==
[2019-06-26 18:49] LABS: African American GFR (CKD) 84.1 (60.0-200.0); Albumin 4.5 g/dL (3.80-4.90); Albumin/Globulin Ratio 3.21 (1.60-3.17); Anion Gap 8.6 mmol/L (4.00-12.00); BUN/Creat Ratio 30.91 Ratio (12.00-20.00); Calcium 9.6 mg/dL (8.7-10.3); Carbon Dioxide 32.4 mmol/L (21.6-31.8); Chol/HDL Ratio 2.38; Globulin 1.4 g/dL (1.6-3.3); LDL Cholesterol,Calculated 115.8 mg/dL (0.0-131.0); Non-African American GFR(CKD) 72.6 (60.0-200.0); Potassium 4.9 mmol/L (3.5-5.5); Total Bilirubin 0.6 mg/dL (0.2-1.2); Total Protein 5.9 g/dL (6.2-8.2); VLDL Calculation 12.2 mg/dL (5.00-40.00)
== END | disposition home or self-care (01) ==
LOC: LABWHC1 13:34
PROVIDERS: ATTEND Internal Medicine Interventional Cardiology
DX: E78.2 Mixed hyperlipidemia (principal)
CPT/HCPCS: 36415; 80053; 80061

== ENCOUNTER 2019-08-30 03:38 | Inpatient (IN) | payer OTHER ==
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
[2019-08-30 04:23] LABS: Basophils # (A) 0.1 k/uL (0-0.2); Basophils % (A) 0 %; Eosinophils # (A) 0.1 k/uL (0-0.7); Eosinophils % (A) 1 %; HCT 30.1 % (39.0-53.0); HGB 10.3 gm/dL (13.0-17.5); Lymphocytes # (A) 0.9 k/uL (1.0-4.8); Lymphocytes % (A) 8 %; MCH 32.5 pg (25.0-35.0); MCHC 34.2 g/dL (31.0-37.0); MCV 94.9 fL (80.0-100.0); Mean Platelet Volume 8.2; Monocytes # (A) 0.7 k/uL (0-1.0); Monocytes % (A) 6 %; Neutrophils # (A) 9.1 k/uL (1.3-7.7); Neutrophils % (A) 83 %; Platelet Count 162 k/uL (150-450); RBC 3.17 m/uL (4.30-5.90); RDW 14.7 % (11.5-15.5); WBC 10.9 k/uL (3.8-10.6)
[2019-08-30 04:33] LABS: Albumin 3.9 g/dL (3.5-5.0); Calcium 8.8 mg/dL (8.4-10.2); Magnesium 2.1 mg/dL (1.6-2.3); Potassium 4.8 mmol/L (3.5-5.1); Total Bilirubin 0.3 mg/dL (0.2-1.3); Total Protein 6.1 g/dL (6.3-8.2)
--- NOTE | 2019-08-30 04:35 | XR ---
EXAMINATION TYPE: XR chest 1V portable DATE OF EXAM: 08/30/2019 COMPARISON: 04/22/2019 HISTORY: Short of breath TECHNIQUE: FINDINGS: There is a very poor inspiration. There is elevation of the right diaphragm. There is no gr oss heart failure. There is a left axillary pacemaker. There are sternal wires. Bony thorax appears i ntact. There is no pelvic consolidation. IMPRESSION: Poor inspiration with mild chronic elevated right diaphragm. Inspiration decreased compar ed to old exam. No pulmonary consolidation or heart failure.
[2019-08-30 04:43] LABS: Prothrombin Time 10.2 sec (9.0-12.0)
[2019-08-30 04:44] LABS: D-Dimer 0.65 mg/L FEU (<0.60); Partial Thromboplastin Time 18.3 sec (22.0-30.0)
[2019-08-30 05:08] LABS: Appearance,Urine Clear (Clear); Bilirubin,Urine Negative (Negative); Blood,Urine Negative (Negative); Color,Urine Light Yellow; Glucose,Urine (UA) Trace (Negative); Ketones,Urine Negative (Negative); Leukocyte Esterase,Urine Negative (Negative); Nitrite,Urine Negative (Negative); PH, Urine 5.5 (5.0-8.0); Protein,Urine Negative (Negative); Specific Gravity,Urine 1.013 (1.001-1.035); Urobilinogen,Urine <2.0 mg/dL (<2.0)
[2019-08-30] MEDS ORDERED: IPRATROPIUM-ALBUTEROL 3 ML NEB INHALATION STA (06:19)
[2019-08-30] MEDS ORDERED: HEPARIN SODIUM,PORCINE 5,000 UNIT/ML 1 ML VIAL IV ONE (07:21)
[2019-08-30] MEDS ORDERED: HEPARIN SODIUM,PORCINE 5,000 UNIT/ML 1 ML VIAL IV PRN (07:21)
[2019-08-30] MEDS ORDERED: ASPIRIN 81 MG PO STA (07:21)
[2019-08-30] MEDS ORDERED: NITROGLYCERIN SL TABS 0.4 MG TAB SUBLINGUAL PRN ×2 (07:24→11:35)
[2019-08-30] MEDS: HEPARIN SOD,PORK IN 0.45% NACL 25,000 UNIT in 0.45% NACL 1 250ML.BAG IV SCH (07:55)
--- NOTE | 2019-08-30 11:46 | P.HPIM ---
History of Present Illness H&P Date: 08/30/19 Chief Complaint: NSTEMI This is a 58-year-old male patient of Drs. Bautista, Jing and Farideh with past medical history of coronary artery disease and status post coronary artery bypass grafting and previous angioplasty and stenting so that, heart catheterization in September 2018 revealed severe stenosis of the LAD with occluded first obtuse marginal branch, chronically occluded mid right coronary artery, mild to moderate disease of the proximal left circumflex, patent JACKSON to LAD, patent saphenous vein graft to the diagonal branch and to the right PDA, severely impaired left ventricular systolic function, ischemic cardiomyopathy EF of 20% status post AICD, chronic systolic heart failure as well as chronic obstructive pulmonary disease, chronic hypoxic respiratory failure on home O2, hypertension, hyperlipidemia, chronic pain syndrome on methadone, tobacco use and dependencequit September 2018, patient presented to the emergency department at [facility] with increased shortness breath associated with increased swelling in both lower extremities and he has been checking his weight and regular basis and he noticed a sudden increase in his weight over the last 48 hours he was not catching his breath without any chest pain patient troponin was slightly elevated he was admitted to the hospital for non-ST elevation PA however because of the concern of requiring more oxygen along with the cough patient was admitted to the hospital under the droplet precautions influenza A and B will be obtained as well as COVID-19 will be obtained, pulmonary and ca rdiology consult was obtained. Review of Systems Constitutional: Denies chills, Denies lethargy, Denies weakness Eyes: denies blurred vision, denies bulging eye, denies decreased vision Ears, nose, mouth and throat: Denies dental pain, Denies dysphagia, Denies neck lump, Denies sore throat Cardiovascular: Reports decreased exercise tolerance, Reports dyspnea on exertion, Reports shortness of breath, Denies chest pain, Denies lightheadedness, Denies rapid heart beat, Denies syncope Respiratory: Reports cough, Reports home oxygen, Denies congestion, Denies cough with sputum, Denies sleep apnea, Denies snoring, Denies wheezing Gastrointestinal: Denies abdominal pain, Denies bloating, Denies BRBPR, Denies excessive gas, Denies heartburn, Denies melena, Denies nausea, Denies vomiting Genitourinary: Reports nocturia, Denies dysuria Musculoskeletal: Denies myalgias Musculoskeletal: absent: ankle pain, ankle stiffness, ankle swelling, elbow pain, elbow stiffness, elbow swelling, foot pain, foot stiffness, foot swelling, hand pain, hand stiffness, hand swelling, hip pain, hip stiffness, hip swelling, knee pain, knee stiffness, knee swelling, shoulder pain, shoulder stiffness, shoulder swelling, wrist pain, wrist stiffness, wrist swelling Integumentary: Denies pruritus, Denies rash Neurological: Denies numbness, Denies weakness Psychiatric: Denies anxiety, Denies depression Endocrine: Denies fatigue, Denies weight change Past Medical History Past Medical History: Asthma, Coronary Artery Disease (CAD), Heart Failure, COPD, Hyperlipidemia, Hypertension, Myocardial Infarction ([place]), Renal Disease, Respiratory Disorder Additional Past Medical History / Comment(s): Ischemic cardiomyopathy-pt has AICD, chronic CHF, chronic respiratory failure with home oxygen/pt states how many liters varies, hayfever, seasonal allergies, 12/2018 facial [place] [facility], chronic low back pain/bulging discs-uses methadone for pain, past medical record documented CKD stage III but pt unaware. Last Myocardial Infarction Date:: 2013 History of Any Multi-Drug Resistant Organisms: MRSA Date of last positivie culture/infection: 02/08/09 MDRO Source:: Leg/face Past Surgical History: AICD, Coronary Bypass/CABG, Heart Catheterization, Heart Catheterization With Stent Additional Past Surgical History / Comment(s): 2019 AICD, CABG 2018- 3 vessel, PCI with stent in 2013, incicional hernia repair. Past Anesthesia/Blood Transfusion Reactions: No Reported Reaction Additional Past Anesthesia/Blood Transfusion Reaction / Comment(s): Difficulty in breathing Date of Last Stent Placement:: 2013 Type of Cardiac Device: AICD Device Placement Date:: 2018 Past Psychological History: Depression Smoking Status: Former smoker Past Alcohol Use History: None Reported Past Drug Use History: None Reported - Past Family History Father Family Medical History: Cancer Additional Family Medical History / Comment(s): Pancreatic CA. Father is . Mother Family Medical History: Cancer Additional Family Medical History / Comment(s): Leukemia. Mother is . Medications and Allergies Home Medications Medication Instructions Recorded Confirmed Type Atorvastatin [Lipitor] 40 mg PO DAILY #30 tab 08/31/08/30/19 Rx Spironolactone [Aldactone] 25 mg PO DAILY #30 tab 01/09/18 08/30/19 Rx Furosemide [Lasix] 40 mg PO TID 09/20/18 08/30/19 History Nitroglycerin Sl Tabs [Nitrostat] 0.4 mg SUBLINGUAL Q5M PRN #25 tab 09/24/18 08/30/19 Rx Montelukast [Singulair] 10 mg PO HS #30 tab 09/27/18 08/30/19 Rx Nicotine 21Mg/24Hr Patch [Habitrol] 1 patch TRANSDERM DAILY #30 patch 09/27/18 08/30/19 Rx Ipratropium/Albuterol Sulfate 2 puff INHALATION RT-BID 12/04/18 08/30/19 History [Combivent Respimat Inhaler] Albuterol Inhaler [Ventolin Hfa 1 - 2 puff INHALATION RT-QID PRN 12/25/18 08/30/19 History Inhaler] Methadone HCl [Methadone Intensol] 115 mg PO DAILY 02/09/19 08/30/19 History Multivitamins, Thera [Multivitamin 1 tab PO DAILY 04/22/19 08/30/19 History (formulary)] Oxymetazoline 0.05% Nasl [place] 1 spray EA NOSTRIL DAILY PRN 04/22/19 08/30/19 History [Afrin 0.05% Nasal [place]] Benzocaine/Menthol Lozeng [Cepacol 1 lozenge MUCOUS MEM Q4HR PRN 08/30/19 08/30/19 History lozenge] Carvedilol [Coreg] 6.25 mg PO BID 08/30/19 08/30/19 History Cetirizine HCl [Zyrtec] 10 mg PO DAILY 08/30/19 08/30/19 History Ezetimibe [Zetia] 10 mg PO DAILY 08/30/19 08/30/19 History Fluticasone Propion/Salmeterol 1 puff INHALATION RT-BID 08/30/19 08/30/19 History [Wixela 250-50 Inhub] Ipratropium-Albuterol Nebulize 3 ml INHALATION RT-Q4H PRN 08/30/19 08/30/19 History [Duoneb 0.5 mg-3 mg/3 ml Soln] Sacubitril/Valsartan [Entresto 49 1 tab PO BID 08/30/19 08/30/19 History mg-51 mg Tablet] predniSONE [Deltasone] 20 mg PO BID 08/30/19 08/30/19 History Allergies Allergy/AdvReac Type Severity Reaction Status Date / Time No Known Allergies Allergy Verified 08/30/19 09:19 Physical Exam Vitals: Vital Signs Temp Pulse Resp BP Pulse Ox 08/30/19 08:00 77 17 114/79 98 08/30/19 07:35 77 18 114/79 98 08/30/19 07:30 81 16 108/82 96 08/30/19 07:13 88 08/30/19 07:00 81 15 103/77 08/30/19 06:30 75 10 L 115/81 08/30/19 06:00 80 18 99/74 99 08/30/19 05:30 72 16 114/80 99 08/30/19 05:00 79 18 104/74 98 08/30/19 04:35 87 20 104/74 99 08/30/19 04:20 24 08/30/19 04:11 86/66 97 08/30/19 03:42 98 F 51 L 24 90/55 100 Intake and Output 08/29/19 08/30/19 08/30/19 22:59 06:59 14:59 Other: Weight 92.533 kg HEENT: Head is atraumatic, normal cephalic, pupils were equal round reactive to light and accommodation, extraocular muscle movement were intact, mucous membranes of mouth is dry. Neck: Supple, no JVP. Chest: Decreased breath sound at bases, few rhonchi, minimal expiratory wheezes, minimal intercostal retraction, there is an AICD located in the left upper precordium. Heart: First heart sound is depressed, second heart sounds normal, there is sys tolic ejection murmur 2/6 located in the left sternal border, there is AICD in the left upper precordium Abdomen: Soft, nontender, nondistended, positive bowel sounds. Extremities: Trace edema, no calf tenderness, dorsalis pedis +1 bilaterally. Neurologic examination: Patient is awake alert and oriented 3, cranial nerves II-12 appear grossly intact, muscle power 4 out of 5 in upper and lower e xtremity disease bilaterally. Results CBC & Chem 7: 08/30/19 04:13 08/30/19 04:13 Labs: Abnormal Lab Results - Last 24 Hours (Table) 08/30/19 08/30/19 08/30/19 Range/Units 04:13 04:13 04:13 WBC 10.9 H (3.8-10.6) k/uL RBC 3.17 L (4.30-5.90) m/uL Hgb 10.3 L (13.0-17.5) gm/dL Hct 30.1 L (39.0-53.0) % Neutrophils # 9.1 H (1.3-7.7) k/uL Lymphocytes # 0.9 L (1.0-4.8) k/uL APTT 18.3 L (22.0-30.0) sec D-Dimer 0.65 H (<0.60) mg/L FEU Sodium 135 L (137-145) mmol/L Chloride 91 L (98-107) mmol/L Carbon Dioxide 40 H (22-30) mmol/L BUN 69 H (9-20) mg/dL Creatinine 1.63 H (0.66-1.25) mg/dL Glucose 129 H (74-99) mg/dL Troponin I (0.000-0.034) ng/mL Total Protein 6.1 L (6.3-8.2) g/dL Urine Glucose (UA) (Negative) 08/30/19 08/30/19 Range/Units 04:13 05:02 WBC (3.8-10.6) k/uL RBC (4.30-5.90) m/uL Hgb (13.0-17.5) gm/dL Hct (39.0-53.0) % Neutrophils # (1.3-7.7) k/uL Lymphocytes # (1.0-4.8) k/uL APTT (22.0-30.0) sec D-Dimer (<0.60) mg/L FEU Sodium (137-145) mmol/L Chloride (98-107) mmol/L Carbon Dioxide (22-30) mmol/L BUN (9-20) mg/dL Creatinine (0.66-1.25) mg/dL Glucose (74-99) mg/dL Troponin I 0.064 H* (0.000-0.034) ng/mL Total Protein (6.3-8.2) g/dL Urine Glucose (UA) Trace H (Negative) Assessment and Plan Assessment: Assessment and plan: 1. Acute on chronic hypoxemic respiratory failure due to chronic systolic heart failure/COPD/possible non-ST elevation PA. Continue patient on aspirin 325 mg once every day, Lipitor 40 mg orally once every day, Coreg 6.25 mg orally twice every day, continue heparin drip, place the patient in droplet isolation, if was a and B were negative, COVID-19 will be sent, pulmonary consultation from Dr. Celia Marroquin. and cardiology consultation. 2. Coronary artery disease status post coronary artery bypass graft with PCI and ischemic cardiomyopathy post AICD. Continue Coreg 6.25 mg orally twice every day, Entresto 24/26 minute gram orally twice every day, Lasix 40 mg orally once every day, Spironolactone 25 mg orally once every day. 3. COPD. Continue DuoNeb 3 mg nebulization 4 times every day, continue prednisone 20 mg orally twice a day, continue Advair Diskus 250/50 one puff inhalation twice every day. 4. Hypertension and hypertensive cardiovascular disease. Continue patient on carvedilol 6.25 mg orally twice every day. 5. Hyperlipidemia. Continue Lipitor 40 mg orally once every day. 6. Acute kidney injury secondary to diuretics as well as low effective blood flow to the kidney. We will continue Lasix at 60 mg IV push every 12 hours, monitor the patient CMP and magnesium level in the next 24 hours. 7. History of tobacco use and dependence. Patient is not smoking at this point. 8. Chronic pain syndrome. Continue patient on methadone. 9. DVT prophylaxis. Continue heparin drip for now. 10. GI prophylaxis. Pepcid 20 mg orally once every day. 11. Admitted to inpatient. Estimate length of stay 2 midnights. 12. Patient is full code.
[2019-08-30] MEDS: ATORVASTATIN 40 MG TAB PO SCH (12:39)
[2019-08-30] MEDS: FUROSEMIDE 10 MG/ML 10 ML VIAL IV SCH ×2 (12:39→20:08)
--- NOTE | 2019-08-30 13:15 | CONS ---
CONSULTATION This is a 58-year-old gentleman with history of coronary artery disease, status post CABG, chronic systolic heart failure, asthma, hypertension, and dyslipidemia who presented to hospital with shortness of breath, leg edema and weight gain. We have been consulted because of mildly elevated troponin. Because of worsening oxygenation, patient is currently being evaluated for COVID and he is in COVID isolation. Patient has known CAD and had prior bypass surgery, had a cardiac catheterization in September of 2018 that revealed severe chronically occluded right coronary artery, mild to moderate disease in circumflex coronary artery with a severe stenosis of LAD. JACKSON to LAD was patent as was the venous graft diagonal and PDA. Patient had severe LV systolic dysfunction and he went on to have BiV AICD. His EKG shows paced rhythm with ST-T wave changes that is similar to his prior EKGs. His tropes are mildly elevated at 0.06 and 0.08, which are similar to the troponin elevation back in October. His BUN is 69, creatinine is 1.6 and that is a significant elevation compared to his baseline creatinine of 1.1. I believe that patient's troponin elevation is related to the renal insufficiency and patient's clinical presentation is more consistent with an acute exacerbation of chronic systolic heart failure with BNP elevation. The patient is currently on IV Lasix, IV heparin, beta blockers and nebulizers. I am going to stop the heparin at this time and put him on subcu heparin. PAST MEDICAL HISTORY: Significant for CAD, status post CABG, congestive heart failure, status post BiV ICD, and COPD. MEDICATIONS: At home include Aldactone 25 q. daily, Entresto, Habitrol, Singulair, nebulizers, Lasix, Zetia, Zyrtec, Coreg, Lipitor. ALLERGIES: There are no known drug allergies. FAMILY HISTORY: Negative for premature coronary artery disease. SOCIAL HISTORY: Negative for current smoking, EtOH abuse or drug abuse. REVIEW OF SYSTEMS: HEENT: Unremarkable. CARDIAC: As described above. RESPIRATORY: As described above. GI: Negative. GENITOURINARY: Negative ALLERGY;IMMUNOLOGY: None. SKIN: Negative. MUSCULOSKELETAL: Negative. ENDOCRINE: Negative. CONSTITUTIONAL: Negative. ONCOLOGICAL: Negative. PHYSICAL EXAMINATION: On exam, patient is afebrile. Heart rate is 73 beats per minute. Blood pressure is 114/72, O2 saturation is 100% on 6 L. I did not perform a detailed physical exam on this patient who was already been evaluated by Dr. Richard and I reviewed his physical exam in order to conserve personal protective equipment. ASSESSMENT: 1. Troponin elevation secondary to renal insufficiency. 2. Respiratory shortness of breath due to a combination of underlying asthma, chronic obstructive pulmonary disease, and congestive heart failure exacerbation. 3. Cardiomyopathy status post AICD. 4. Coronary artery disease, status post coronary artery bypass grafting. PLAN: I am going to stop the IV heparin, put the patient on subcu heparin. Continue rest of his medications including Aldactone, Entresto, Coreg, Zetia, Lasix. MMODL / IJN: [id number] /
[2019-08-30] MEDS: METHADONE 10 MG TAB PO SCH (16:00)
[2019-08-30] MEDS: METHADONE 5 MG TAB PO SCH (16:00)
[2019-08-30] MEDS: CARVEDILOL 6.25 MG TAB PO SCH (17:52)
[2019-08-30] MEDS: predniSONE 20 MG TAB PO SCH (20:08)
[2019-08-30] MEDS: MONTELUKAST 10 MG TAB PO SCH (20:08)
[2019-08-30] MEDS: SACUBITRIL/VALSARTAN 49 MG-51 MG TABLET PO SCH (20:11)
[2019-08-30] MEDS: SYMBICORT 80-4.5 MCG INHALER INHALATION SCH (20:32)
[2019-08-31] MEDS: SODIUM CHLORIDE 0.65% NASAL SPRAY 44 ML BTL NASAL SCH ×3 (04:51→20:53)
[2019-08-31] MEDS: CARVEDILOL 6.25 MG TAB PO SCH (06:33)
[2019-08-31 07:09] LABS: Basophils % (A) 0 %; Eosinophils % (A) 0 %; HCT 31.5 % (39.0-53.0); HGB 10.4 gm/dL (13.0-17.5); Lymphocytes # (A) 1.1 k/uL (1.0-4.8); Lymphocytes % (A) 10 %; MCH 31.9 pg (25.0-35.0); MCV 96.6 fL (80.0-100.0); Monocytes # (A) 0.6 k/uL (0-1.0); Monocytes % (A) 5 %; Neutrophils # (A) 9.4 k/uL (1.3-7.7); Neutrophils % (A) 83 %; Platelet Count 166 k/uL (150-450); RBC 3.26 m/uL (4.30-5.90); WBC 11.2 k/uL (3.8-10.6)
[2019-08-31] MEDS: SYMBICORT 80-4.5 MCG INHALER INHALATION SCH (07:58)
[2019-08-31] MEDS: SYMBICORT 80-4.5 MCG INHALER (MHU) INHALATION SCH ×2 (07:59→21:39)
[2019-08-31 08:24] LABS: Albumin 3.9 g/dL (3.5-5.0); Calcium 9.2 mg/dL (8.4-10.2); Magnesium 2.3 mg/dL (1.6-2.3); Potassium 5.7 mmol/L (3.5-5.1); Total Bilirubin 0.6 mg/dL (0.2-1.3); Total Protein 6.2 g/dL (6.3-8.2)
[2019-08-31] MEDS: HEPARIN SOD,PORK IN 0.45% NACL 25,000 UNIT in 0.45% NACL 1 250ML.BAG IV SCH (08:50)
[2019-08-31] MEDS: FUROSEMIDE 10 MG/ML 10 ML VIAL IV SCH ×2 (08:55→20:54)
[2019-08-31] MEDS: predniSONE 20 MG TAB PO SCH ×2 (08:56→20:54)
[2019-08-31] MEDS: METHADONE 5 MG TAB PO SCH (08:56)
[2019-08-31] MEDS: ATORVASTATIN 40 MG TAB PO SCH (08:56)
[2019-08-31] MEDS: MULTIVITAMINS, THERA 1 EACH TAB PO SCH (08:56)
[2019-08-31] MEDS: EZETIMIBE 10 MG TAB PO SCH (08:56)
[2019-08-31] MEDS: SACUBITRIL/VALSARTAN 49 MG-51 MG TABLET PO SCH ×2 (08:56→20:54)
[2019-08-31] MEDS: METHADONE 10 MG TAB PO SCH (08:57)
[2019-08-31] MEDS ORDERED: amLODIPine 5 MG TAB PO SCH (09:00)
[2019-08-31] MEDS ORDERED: METHADONE 5 MG TAB PO SCH (09:00)
[2019-08-31] MEDS ORDERED: SPIRONOLACTONE 25 MG TAB PO SCH (09:00)
[2019-08-31] MEDS ORDERED: METHADONE 10 MG TAB PO SCH (09:00)
--- NOTE | 2019-08-31 10:06 | P.NPCON ---
History of Present Illness - Reason for Consult acute renal failure - Chief Complaint Acute kidney injury and congestive heart failure - History of Present Illness This is a 58-year-old male seen in consultation because of acute kidney injury. Creatinine was 1.1 on 06/26/2019, on admission was 1.63 and went up further to 2.07 this morning. He is known with severe coronary artery disease with previous bypass graft, angioplasties and further has an ejection fraction of 20%, AICD COPD. He was admitted with difficulty breathing and increase in lower extremity edema. He is a patient was being tested for coronavirus No fever chills. Denies any history of incontinence. No nonsteroidals. He is on large doses of methadone. His blood pressure did drop down into the 80s Past Medical History Past Medical History: Asthma, Coronary Artery Disease (CAD), Heart Failure, COPD, Hyperlipidemia, Hypertension, Myocardial Infarction ([place]), Renal Disease, Respiratory Disorder Additional Past Medical History / Comment(s): Ischemic cardiomyopathy-pt has AICD, chronic CHF, chronic respiratory failure with home oxygen/pt states how many liters varies, hayfever, seasonal allergies, 12/2018 facial [place] [facility], chronic low back pain/bulging discs-uses methadone for pain, past medical record documented CKD stage III but pt unaware. Last Myocardial Infarction Date:: 2013 History of Any Multi-Drug Resistant Organisms: MRSA Date of last positivie culture/infection: 02/08/09 MDRO Source:: Leg/face Past Surgical History: AICD, Coronary Bypass/CABG, Heart Catheterization, Heart Catheterization With Stent Additional Past Surgical History / Comment(s): 2019 AICD, CABG 2018- 3 vessel, PCI with stent in 2013, incicional hernia repair. Past Anesthesia/Blood Transfusion Reactions: No Reported Reaction Additional Past Anesthesia/Blood Transfusion Reaction / Comment(s): Difficulty in breathing Date of Last Stent Placement:: 2013 Type of Cardiac Device: AICD Device Placement Date:: 2018 Past Psychological History: Depression Smoking Status: Former smoker Past Alcohol Use History: None Reported Past Drug Use History: None Reported - Past Family History Father Family Medical History: Cancer Additional Family Medical History / Comment(s): Pancreatic CA. Father is . Mother Family Medical History: Cancer Additional Family Medical History / Comment(s): Leukemia. Mother is . Medications and Allergies Home Medications Medication Instructions Recorded Confirmed Type Atorvastatin [Lipitor] 40 mg PO DAILY #30 tab 08/31/16 08/30/19 Rx Spironolactone [Aldactone] 25 mg PO DAILY #30 tab 01/09/18 08/30/19 Rx Furosemide [Lasix] 40 mg PO TID 09/20/18 08/30/19 History Nitroglycerin Sl Tabs [Nitrostat] 0.4 mg SUBLINGUAL Q5M PRN #25 tab 09/24/18 08/30/19 Rx Montelukast [Singulair] 10 mg PO HS #30 tab 09/27/18 08/30/19 Rx Nicotine 21Mg/24Hr Patch [Habitrol] 1 patch TRANSDERM DAILY #30 patch 09/27/18 08/30/19 Rx Ipratropium/Albuterol Sulfate 2 puff INHALATION RT-BID 12/04/18 08/30/19 History [Combivent Respimat Inhaler] Albuterol Inhaler [Ventolin Hfa 1 - 2 puff INHALATION RT-QID PRN 12/25/18 08/30/19 History Inhaler] Methadone HCl [Methadone Intensol] 115 mg PO DAILY 02/09/19 08/30/19 History Multivitamins, Thera [Multivitamin 1 tab PO DAILY 04/22/19 08/30/19 History (formulary)] Oxymetazoline 0.05% Nasl [place] 1 spray EA NOSTRIL DAILY PRN 04/22/19 08/30/19 History [Afrin 0.05% Nasal [place]] Benzocaine/Menthol Lozeng [Cepacol 1 lozenge MUCOUS MEM Q4HR PRN 08/30/19 08/30/19 History lozenge] Carvedilol [Coreg] 6.25 mg PO BID 08/30/19 08/30/19 History Cetirizine HCl [Zyrtec] 10 mg PO DAILY 08/30/19 08/30/19 History Ezetimibe [Zetia] 10 mg PO DAILY 08/30/19 08/30/19 History Fluticasone Propion/Salmeterol 1 puff INHALATION RT-BID 08/30/19 08/30/19 History [Wixela 250-50 Inhub] Ipratropium-Albuterol Nebulize 3 ml INHALATION RT-Q4H PRN 08/30/19 08/30/19 History [Duoneb 0.5 mg-3 mg/3 ml Soln] Sacubitril/Valsartan [Entresto 49 1 tab PO BID 08/30/19 08/30/19 History mg-51 mg Tablet] predniSONE [Deltasone] 20 mg PO BID 08/30/19 08/30/19 History Allergies Allergy/AdvReac Type Severity Reaction Status Date / Time No Known Allergies Allergy Verified 08/30/19 09:19 Physical Exam Vitals: Vital Signs Temp Pulse Resp BP BP Pulse Ox 08/31/19 08:00 97.8 F 74 18 89/58 96 08/31/19 07:59 96 08/31/19 06:10 82 18 111/55 100 08/31/19 04:00 97.4 F L 63 24 171/122 97 08/31/19 00:00 98.9 F 84 17 92/60 97 08/30/19 20:04 99 08/30/19 20:00 98.4 F 97 18 141/69 99 08/30/19 16:00 91 107/70 99 08/30/19 12:00 74 92/59 97 08/30/19 10:02 97.9 F 73 114/72 100 Intake and Output 08/30/19 08/31/19 08/31/19 22:59 06:59 14:59 Intake Total 70 236 Output Total 100 Balance 70 -100 236 Intake: Intake, IV Titration 70 Amount Heparin Sod,Pork in 0.45% 70 NaCl 25,000 unit In 0.45 % NaCl 1 250ml.bag @ 10.8 UNITS/KG/HR 9.994 mls/hr IV .Q24H [facility] Rx#: [id number] Oral 236 Output: Urine 100 Other: Voiding Method Urinal Urinal Weight 89.1 kg Exam general he is on oxygen slightly short of breath HEENT exam no JVP neck is supple no facial asymmetry Lungs are significant but lateral coarse crackles at bases fair air entry bilaterally Heart sounds are unremarkable for any murmur rub gallop Abdomen is obese slightly distended. No masses felt nontender Extremity exam was 2+ to 3+ edema. Neurologically awake alert oriented Results - Lab Results Most recent lab results Calcium 9.2 mg/dL (8.4-10.2) 03/29/20 06:04 Magnesium 2.3 mg/dL (1.6-2.3) 08/31/19 06:04 08/31/19 06:04 08/31/19 06:04 Assessment and Plan Plan: Impression 1. Acute kidney injury from prerenal from low blood pressure and congestive heart failure. This would be a cardiorenal syndrome. 2. No history of chronic kidney disease or labs to suggested creatinine was 1.1 on 06/26/2019 and GFR was 72 mL per minute. But he has had acute kidney injury in the past. 3. Mild degree of hyperkalemia secondary acute kidney injury. 4. Mild degree of metabolic alkalosis secondary to diuretics. 5. Mild degree of hyponatremia secondary to acute systolic congestive heart failure 6. Methadone dependency 7. Severe coronary artery disease with bypass AICD or ejection fraction ischemic cardiomyopathy Recommendation 1. Continue Lasix at 80 mg every 12 IV 2. Strict I's and O 3. Bladder scan for postvoid residual 4. Redo labs to follow up potassium, with diuretics it should come down. 5. I'll discuss with cardiology - If possible reduce the carvedilol and if the creatinine continues to go up by tomorrow discontinue valsartan. Thank you for this consultation we'll continue to follow
[2019-08-31] MEDS ORDERED: FUROSEMIDE 10 MG/ML 2 ML VIAL IV ONE (10:15)
--- NOTE | 2019-08-31 12:35 | P.PN ---
Subjective Progress Note Date: 08/31/19 This is a 58-year-old male patient of Drs. Bautista, Jing and Farideh with past medical history of coronary artery disease and status post coronary artery bypass grafting and previous angioplasty and stenting so that, heart catheterization in September 2018 revealed severe stenosis of the LAD with occluded first obtuse marginal branch, chronically occluded mid right coronary artery, mild to moderate disease of the proximal left circumflex, patent JACKSON to LAD, patent saphenous vein graft to the diagonal branch and to the right PDA, severely impaired left ventricular systolic function, ischemic cardiomyopathy EF of 20% status post AICD, chronic systolic heart failure as well as chronic obstructive pulmonary disease, chronic hypoxic respiratory failure on home O2, hypertension, hyperlipidemia, chronic pain syndrome on methadone, tobacco use and dependencequit September 2018, patient presented to the emergency department at [facility] with increased shortness breath associated with increased swelling in both lower extremities and he has been checking his weight and regular basis and he noticed a sudden increase in his weight over the last 48 hours he was not catching his breath without any chest pain patient troponin was slightly elevated he was admitted to the hospital for non-ST elevation NM however because of the concern of requiring more oxygen along with the cough patient was admitted to the hospital under the droplet precautions influenza A and B will be obtained as well as COVID-19 will be obtained, pulmonary and cardiology consult was obtained. 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 As well, keep his blood pressure greater than 120 systolic at all the time. We'll repeat his labs in the morning. Objective - Vital Signs Vital signs: Vital Signs Temp 97.8 F 08/31/19 08:00 Pulse 74 08/31/19 08:00 Resp 18 08/31/19 08:00 BP 89/58 08/31/19 08:00 Pulse Ox 96 08/31/19 08:00 Intake & Output 08/30/19 08/31/19 08/31/19 18:59 06:59 18:59 Intake Total 547 236 Output Total 100 Balance 547 -100 236 Weight 92.533 kg 89.1 kg Intake: Intake, IV Titration 70 Amount Heparin Sod,Pork in 0.45% 70 NaCl 25,000 unit In 0.45 % NaCl 1 250ml.bag @ 10.8 UNITS/KG/HR 9.994 mls/hr IV .Q24H COUNT INCLUDES THE [facility] Rx#: [id number] Oral 477 236 Output: Urine 100 Other: Voiding Method Urinal - Exam Review of Systems Constitutional: Denies chills, Denies lethargy, Denies weakness Eyes: denies blurred vision, denies bulging eye, denies decreased vision Ears, nose, mouth and throat: Denies dental pain, Denies dysphagia, Denies neck lump, Denies sore throat Cardiovascular: Reports decreased exercise tolerance, Reports dyspnea on exertion, Reports shortness of breath, Denies chest pain, Denies lightheadedness, Denies rapid heart beat, Denies syncope Respiratory: Reports cough, Reports home oxygen, Denies congestion, Denies cough with sputum, Denies sleep apnea, Denies snoring, Denies wheezing Gastrointestinal: Denies abdominal pain, Denies bloating, Denies BRBPR, Denies excessive gas, Denies heartburn, Denies melena, Denies nausea, Denies vomiting Genitourinary: Reports nocturia, Denies dysuria Musculoskeletal: Denies myalgias Musculoskeletal: absent: ankle pain, ankle stiffness, ankle swelling, elbow pain, elbow stiffness, elbow swelling, foot pain, foot stiffness, foot swelling, hand pain, hand stiffness, hand swelling, hip pain, hip stiffness, hip swelling, knee pain, knee stiffness, knee swelling, shoulder pain, shoulder stiffness, shoulder swelling, wrist pain, wrist stiffness, wrist swelling Integumentary: Denies pruritus, Denies rash Neurological: Denies numbness, Denies weakness Psychiatric: Denies anxiety, Denies depression Endocrine: Denies fatigue, Denies weight change Physical Examination: HEENT: Head is atraumatic, normal cephalic, pupils were equal round reactive to light and accommodation, extraocular muscle movement were intact, mucous membranes of mouth is dry. Neck: Supple, no JVP. Chest: Decreased breath sound at bases, few rhonchi, minimal expiratory wheezes, minimal intercostal retraction, there is an AICD located in the left upper precordium. Heart: First heart sound is depressed, second heart sounds normal, there is systolic ejection murmur 2/6 located in the left sternal border, there is AICD in the left upper precordium Abdomen: Soft, nontender, nondistended, positive bowel sounds. Extremities: Trace edema, no calf tenderness, dorsalis pedis +1 bilaterally. Neurologic examination: Patient is awake alert and oriented 3, cranial nerves II-12 appear grossly intact, muscle power 4 out of 5 in upper and lower extremity disease bilaterally. - Labs CBC & Chem 7: 08/31/19 06:04 08/31/19 06:04 Labs: Abnormal Lab Results - Last 24 Hours (Table) 08/30/19 08/30/19 08/30/19 Range/Units 00:39 09:53 19:20 WBC (3.8-10.6) k/uL RBC (4.30-5.90) m/uL Hgb (13.0-17.5) gm/dL Hct (39.0-53.0) % Neutrophils # (1.3-7.7) k/uL APTT 55.2 H (22.0-30.0) sec Sodium (137-145) mmol/L Potassium (3.5-5.1) mmol/L Chloride (98-107) mmol/L Carbon Dioxide (22-30) mmol/L BUN (9-20) mg/dL Creatinine (0.66-1.25) mg/dL Glucose (74-99) mg/dL Troponin I 0.072 H* 0.083 H* (0.000-0.034) ng/mL Total Protein (6.3-8.2) g/dL LDL Cholesterol, Calc (0-99) mg/dL HDL Cholesterol (40-60) mg/dL 08/31/19 08/31/19 08/31/19 Range/Units 06:04 06:04 08:57 WBC 11.2 H (3.8-10.6) k/uL RBC 3.26 L (4.30-5.90) m/uL Hgb 10.4 L (13.0-17.5) gm/dL Hct 31.5 L (39.0-53.0) % Neutrophils # 9.4 H (1.3-7.7) k/uL APTT 68.2 H (22.0-30.0) sec Sodium 134 L (137-145) mmol/L Potassium 5.7 H (3.5-5.1) mmol/L Chloride 91 L (98-107) mmol/L Carbon Dioxide 34 H (22-30) mmol/L BUN 77 H (9-20) mg/dL Creatinine 2.07 H (0.66-1.25) mg/dL Glucose 132 H (74-99) mg/dL Troponin I (0.000-0.034) ng/mL Total Protein 6.2 L (6.3-8.2) g/dL LDL Cholesterol, Calc 101 H (0-99) mg/dL HDL Cholesterol 76 H (40-60) mg/dL Microbiology - Last 24 Hours (Table) 08/30/19 04:13 Blood Culture Gram Stain - Preliminary Blood 08/30/19 04:13 Blood Culture - Final Blood Assessment and Plan Assessment: Assessment and plan: 1. Acute on chronic hypoxemic respiratory failure due to chronic systolic heart failure/COPD/possible non-ST elevation NM. Continue patient on aspirin 325 mg once every day, Lipitor 40 mg orally once every day, Coreg 6.25 mg orally twice every day, continue heparin drip, place the patient in droplet isolation, if was a and B were negative, COVID-19 will be sent, pulmonary consultation from Dr. Keller will be obtained as is out o town. and cardiology consultation. 2. Coronary artery disease status post coronary artery bypass graft with PCI and ischemic cardiomyopathy post AICD. Discontinue spironolactone as well as Entresto, nephrology increase Lasix to 80 mg IV push every 12 hours as patient continues to be in heart failure, monitor the patient input and output and daily weight bladder scan will be done to check for postvoid retention, if the post void residual greater than [address] and per 3. COPD. Continue DuoNeb 3 mg nebulization 4 times every day, continue prednisone 20 mg orally twice a day, continue Advair Diskus 250/50 one puff inhalation twice every day. 4. Hypertension and hypertensive cardiovascular disease. Continue patient on carvedilol 6.25 mg orally twice every day. 5. Hyperlipidemia. Continue Lipitor 40 mg orally once every day. 6. Acute kidney injury secondary to diuretics as well as low effective blood flow to the kidney. discontinue Spironolactone and Entresto and repeat CMP in AM, we will continue to monitor for Urinary retention and place IDC for PRN of 250 ml or greater. 7. History of tobacco use and dependence. Patient is not smoking at this point. 8. Chronic pain syndrome. Continue patient on methadone. 9. DVT prophylaxis. Continue heparin drip for now. 10. GI prophylaxis. Pepcid 20 mg orally once every day. 11. Droplet precautions due to possible COVID-19. 12. Prognosis is guarded. 13. Full code.
[2019-08-31] MEDS: HEPARIN SODIUM,PORCINE 5,000 UNIT/ML 1 ML VIAL SQ SCH ×2 (15:45→20:54)
[2019-08-31] MEDS: CARVEDILOL 3.125 MG TAB PO SCH (15:45)
[2019-08-31] MEDS ORDERED: VANCOMYCIN 1,000 MG in SODIUM CHLORIDE 0.9% 250 ML IVPB ONE (16:00)
--- NOTE | 2019-08-31 17:59 | CONS ---
CONSULTATION PULMONARY/CRITICAL CARE CONSULTATION: REASON FOR CONSULTATION: Shortness of breath HISTORY OF PRESENT ILLNESS: This is a 58-year-old male who sees Dr. Bautista as a primary, Dr. Ch for his cardiology and Dr. Jose L Gong loudly for his lungs. We are actually covering Dr. Gong at this time. The patient has a history of multiple medical problems including CAD with previous bypass grafting and previous PCI with stenting, as well as severe ischemic cardiomyopathy with an ejection fraction of 20%, status post AICD, systolic heart failure, COPD from previous heavy tobacco use, chronic hypoxemic respiratory failure, hypertension, hyperlipidemia, chronic pain syndrome, chronic tobacco use and nicotine addiction, although he quit in 2019, as well as other major medical problems. The patient presents to the emergency room with complaints of lower extremity edema and shortness of breath. He apparently could not lie flat in bed. He apparently states that since they put the Whitlock catheter in him, he has been doing much better. He denies any fever, chills. Denies any cough. He was not producing any phlegm. He was short of breath. The shortness of breath was worse on exertion. He did have an elevated troponin level and they were concerned about a non ST-segment elevation myocardial infarction, as well as findings consistent with CHF and possible COPD exacerbation. In addition, because of shortness of breath, he had a nasopharyngeal swab for influenza A and B. He was also being evaluated for Covid-19 infection. Again, he denies any fever or chills. He is not coughing or producing any phlegm. His only pulmonary complaint is shortness of breath. PAST MEDICAL HISTORY: Includes COPD, asthma, CAD, heart failure, hyperlipidemia, hypertension, myocardial infarction, ischemic cardiomyopathy, chronic hypoxemic respiratory failure, hayfever, seasonal allergies, chronic low back pain, chronic pain syndrome, and stage 3 chronic kidney disease. SURGICAL HISTORY: Includes among other things, AICD placement, bypass grafting, heart catheterization with stenting, incisional hernia repair, and some other minor surgical procedures. SOCIAL HISTORY: Positive for previous tobacco use. Denies any alcohol use or currently denies any illicit drug use. FAMILY HISTORY: Positive for a father with pancreatic cancer who is and a mother who is from leukemia. MEDICATIONS: Home medications are numerous and include Lipitor, Aldactone, Lasix, sublingual nitroglycerin, Singulair, nicotine patch, DuoNeb, albuterol inhaler, methadone, multivitamins, nasal spray, Cepacol lozenges, Coreg, Zyrtec, and Zetia, Wixela In hub, DuoNeb and Entresto, and prednisone. ALLERGIES: Denied. REVIEW OF SYSTEMS: CONSTITUTIONAL weakness. NEUROLOGIC negative. HEENT negative. CARDIOVASCULAR negative. PULMONARY shortness of breath, worse with exertion. He denies any cough, or phlegm production. GI negative. negative. RHEUMATOLOGIC negative. IMMUNOLOGIC negative. ENDOCRINOLOGIC negative. DERMATOLOGIC negative. He also does complain of lower extremity edema. PHYSICAL EXAMINATION: VITAL SIGNS: Current vital signs are reviewed. Temperature is 98.4. Heart rate 70, respiratory rate 18, blood pressure 104/61, mean 75. 6 L saturation 99%. He appears mildly tachypneic. He has mild conversational dyspnea. There is no audible wheezing or use of accessory muscles. Nasal O2 in place. HEENT examination is grossly unremarkable. Mucous membranes are moist. NECK: Supple. Full range of motion. No adenopathy. Neck veins are flat. CARDIOVASCULAR: Examination reveals regular rhythm and rate. Heart rate 70 beats per minute. Heart sounds are distant. A soft systolic murmur is noted. LUNGS: A few scattered basilar crackles. A few scattered rhonchi. No wheezes. Breath sounds equal bilaterally but diminished throughout. ABDOMEN: Soft. Bowel sounds are heard. EXTREMITIES are intact. There is edema. It is 1+ to 2+. There is some mild pitting. No cyanosis or clubbing. SKIN: Without rash. NEUROLOGIC: Examination is brief but nonfocal. X-RAY: On admission shows small lung volumes. There is a chronically elevated right diaphragm. In my opinion, the x-ray also shows some mild changes of fluid overload. LABS: Reviewed. White count 11.2, hemoglobin 10.4, hematocrit 31.5, platelet count 166,000. PT-T is 68.2. Sodium 134, potassium 5.7, chloride 91, CO2 34, anion gap is 9, BUN and creatinine were 77 and 2.07. Troponin was 0.083. Urine was negative. Medications are currently reviewed. From the pulmonary standpoint, he is on Symbicort, DuoNeb, and prednisone. ASSESSMENT: 1. Shortness of breath, likely multifactorial in part related to underlying congestive heart failure as well as possible chronic obstructive pulmonary disease exacerbation, possibly complicated by non ST-segment elevation myocardial infarction. 2. Rule out Covid-19 infection although the patient's only complaints are that of shortness of breath. He denies any cough or fever. 3. Coronary artery disease, status post bypass grafting, as well as PCI and stent placement. 4. History of severe cardiomyopathy, status post AICD placement. 5. History of underlying chronic obstructive pulmonary disease from previous heavy tobacco use. 6. History of benign essential hypertension. 7. Hyperlipidemia. 8. History of acute kidney injury. 9. History of chronic tobacco use and dependence, quit in 2019. 10.History of chronic pain syndrome. PLAN: Currently, the patient seems to be relatively stable. He in fact tells me that since they put a Whitlock catheter in, he has been doing a lot better. He denies any pain in the chest. He states his shortness of breath is still present but less. His lower extremity edema is improved. He is not coughing. There is no fever. He is not producing any phlegm. We will continue to follow. MMODL / IJN: [id number] /
[2019-08-31 18:13] LABS: Calcium 8.4 mg/dL (8.4-10.2)
[2019-08-31 18:22] LABS: Potassium 5.8 mmol/L (3.5-5.1)
[2019-08-31] MEDS: MONTELUKAST 10 MG TAB PO SCH (20:54)
[2019-09-01 05:20] LABS: Basophils % (A) 0 %; Eosinophils % (A) 0 %; HGB 9.1 gm/dL (13.0-17.5); Lymphocytes # (A) 0.8 k/uL (1.0-4.8); Lymphocytes % (A) 8 %; MCH 31.4 pg (25.0-35.0); MCHC 32.5 g/dL (31.0-37.0); MCV 96.6 fL (80.0-100.0); Mean Platelet Volume 7.7; Monocytes # (A) 0.5 k/uL (0-1.0); Monocytes % (A) 5 %; Neutrophils # (A) 8.4 k/uL (1.3-7.7); Neutrophils % (A) 86 %; Platelet Count 145 k/uL (150-450); RDW 14.8 % (11.5-15.5); WBC 9.8 k/uL (3.8-10.6)
[2019-09-01 05:30] LABS: Albumin 3.5 g/dL (3.5-5.0); Calcium 8.5 mg/dL (8.4-10.2); Magnesium 2.1 mg/dL (1.6-2.3); Potassium 4.9 mmol/L (3.5-5.1); Total Bilirubin 0.3 mg/dL (0.2-1.3); Total Protein 5.6 g/dL (6.3-8.2)
[2019-09-01] MEDS: CARVEDILOL 3.125 MG TAB PO SCH ×2 (06:34→16:32)
[2019-09-01] MEDS: SYMBICORT 80-4.5 MCG INHALER (MHU) INHALATION SCH ×2 (07:58→19:13)
[2019-09-01] MEDS: EZETIMIBE 10 MG TAB PO SCH (08:32)
[2019-09-01] MEDS: ATORVASTATIN 40 MG TAB PO SCH (08:32)
[2019-09-01] MEDS: METHADONE 5 MG TAB PO SCH (08:32)
[2019-09-01] MEDS: MULTIVITAMINS, THERA 1 EACH TAB PO SCH (08:32)
[2019-09-01] MEDS: predniSONE 20 MG TAB PO SCH ×2 (08:32→20:45)
[2019-09-01] MEDS: SACUBITRIL/VALSARTAN 49 MG-51 MG TABLET PO SCH ×2 (08:32→20:46)
[2019-09-01] MEDS: METHADONE 10 MG TAB PO SCH (08:33)
[2019-09-01] MEDS: FUROSEMIDE 10 MG/ML 10 ML VIAL IV SCH ×3 (08:34→20:45)
[2019-09-01] MEDS: HEPARIN SODIUM,PORCINE 5,000 UNIT/ML 1 ML VIAL SQ SCH ×3 (08:34→23:02)
[2019-09-01] MEDS: SODIUM CHLORIDE 0.65% NASAL SPRAY 44 ML BTL NASAL SCH ×2 (08:43→23:02)
--- NOTE | 2019-09-01 10:32 | P.PN ---
Subjective Progress Note Date: 09/01/19 Principal diagnosis: Resume over 19 infection, coronary artery disease, cardiomyopathy with chronic systolic failure status post AICD, chronic persistent asthma of severe category, COPD, hypertension hypertensive cardiovascular disease, dyslipidemia, acute renal failure, smoking and nicotine use, chronic pain syndrome, generalized anxiety disorder 09/01/2019, patient seen and evaluated examined during the rounds labs reviewed medications reviewed, patient has been doing well denies any chest pain breathing comfortably intermittent occasional dry cough is present no fever is present, patient is afebrile with temperature of 98, blood pressure is marginal but stable, patient on 6 L oxygen 100%, last set of blood pressure was 82/47 heart rate is 76, last chest x-ray stable with elevated right hemidiaphragm, no acute infiltrate identified chronic COPD-like changes Objective - Vital Signs Vital signs: Vital Signs Temp 98.0 F 09/01/19 08:00 Pulse 76 09/01/19 08:00 Resp 20 09/01/19 08:00 BP 85/53 09/01/19 08:00 Pulse Ox 100 09/01/19 08:00 Intake & Output 08/31/19 09/01/19 09/01/19 18:59 06:59 18:59 Intake Total 1147 240 Output Total 3500 Balance 1147 -3500 240 Weight 93.6 kg Intake: Oral 1147 240 Output: Urine 3500 Other: Voiding Method Urinal - Exam HEENT: Head is atraumatic, normal cephalic, pupils were equal round reactive to light and accommodation, extraocular muscle movement were intact, mucous membranes of mouth is dry. Neck: Supple, no JVP. Chest: Decreased breath sound at bases, few rhonchi, minimal expiratory wheezes, minimal intercostal retraction, there is an AICD located in the left upper precordium. Heart: First heart sound is depressed, second heart sounds normal, there is systolic ejection murmur 2/6 located in the left sternal border, there is AICD in the left upper precordium Abdomen: Soft, nontender, nondistended, positive bowel sounds. Extremities: Trace edema, no calf tenderness, dorsalis pedis +1 bilaterally. Neurologic examination: Patient is awake alert and oriented 3, cranial nerves II-12 appear grossly intact, muscle power 4 out of 5 in upper and lower extremity disease bilaterally. - Labs CBC & Chem 7: 09/01/19 04:28 09/01/19 04:28 Labs: Abnormal Lab Results - Last 24 Hours (Table) 08/31/19 09/01/19 09/01/19 Range/Units 17:35 04:28 04:28 RBC 2.90 L (4.30-5.90) m/uL Hgb 9.1 L (13.0-17.5) gm/dL Hct 28.0 L (39.0-53.0) % Plt Count 145 L (150-450) k/uL Neutrophils # 8.4 H (1.3-7.7) k/uL Lymphocytes # 0.8 L (1.0-4.8) k/uL Sodium 129 L 132 L (137-145) mmol/L Potassium 5.8 H (3.5-5.1) mmol/L Chloride 91 L 89 L (98-107) mmol/L Carbon Dioxide 38 H (22-30) mmol/L BUN 87 H 79 H (9-20) mg/dL Creatinine 1.82 H 1.63 H (0.66-1.25) mg/dL Glucose 171 H 244 H (74-99) mg/dL Total Protein 5.6 L (6.3-8.2) g/dL Microbiology - Last 24 Hours (Table) 08/30/19 04:13 Blood Culture Gram Stain - Preliminary Blood Blood Culture - Preliminary Staphylococcus aureus Assessment and Plan Assessment: Acute on chronic hypoxic respiratory failure due to likely component of heart failure versus COPD, patient however back on baseline oxygen 6 L is being continued on home medications Coronary artery disease Acute exacerbation of CHF/acute on chronic systolic heart failure Overall symptoms are not suggestive of covid-19 infection Acute renal failure due to hypertension gently being rehydrated and renal function monitored symptoms have improved after Whitlock's catheter Dyslipidemia Chronic tobacco use Chronic persistent asthma of severe category with overlap of severe COPD Plan: Overall plan is continue supplemental oxygen with 6 L which is his baseline, Continue bronchodilator Increase activity as tolerated Agree with discharge planning Time with Patient: Greater than 30
--- NOTE | 2019-09-01 10:43 | PN ---
PROGRESS NOTE This is a 58-year-old gentleman with history of CAD, prior bypass surgery with severe ischemic cardiomyopathy, ejection fraction of less than 30%. He also had a Bi V ICD. He came into the hospital mostly with increasing shortness of breath, lower extremity edema and weight gain. He also has significant other comorbid conditions in the form of COPD past history of smoking, chronic CKD with a creatinine in the range of 1.8 or so. Patient on questioning indicates to me that he has less short of breath today. His breathing is better. He still has edema of lower extremities and his diuretic management is being outlined by Nephrology. He is on 80 mg of Lasix q.12 hours, which I agree with. This was started yesterday evening. Patient clinically tells me that his breathing is better today. His blood pressure is at the low end of normal. The last blood pressure was about 100 systolic. Prior to that, there are some pressures in the 80s as well. He is on a combination of Entresto and a small dose of beta taylor. There is also a question of pneumonia or COPD with exacerbation as well. However, cardiac-isaac he is stable at this time. He will continue his current medical regimen and do and do strict I and Os and weights on a daily basis. I would not change any medications from a cardiac standpoint. PSYCHICAL EXAMINATION: Revealed a JVD of 1 to 2 cm and no carotid bruit/ HEART: Exam reveals S1, S2 with a short systolic murmur. LUNGS: Revealed diminished air entry, both bases with fine rales. ABDOMEN: Soft. Lower extremity has bilateral [id number] edema. CENTRAL NERVOUS SYSTEM: Grossly no focal deficits. IMPRESSION: 1. Exacerbation of congestive heart failure. 2. Probably exacerbation of chronic obstructive pulmonary disease as well to some extent. 3. History of chronic kidney disease. RECOMMENDATION: I recommend that we continue the increased dose of Lasix that was initiated yesterday and all his other medications. Prognosis remains guarded. No other intervention from a cardiac standpoint at this time. MMODL / IJN: [id number] /
--- NOTE | 2019-09-01 11:04 | P.PN ---
Subjective Patient is seen in follow-up for acute kidney injury. Renal function is better. Creatinine 1.60 today. He is maintained on IV Lasix. Nonoliguric. Still complaining of edema but improving. Vital signs are stable. General: The patient appeared well nourished and normally developed. HEENT: Head exam is unremarkable. Neck is without jugular venous distension. LUNGS: Lungs are clear to auscultation and percussion. Breath sounds decreased. HEART: Rate and Rhythm are regular. First and second heart sounds normal. No murmurs, rubs or gallops. ABDOMEN: Soft. No tenderness. EXTREMITITES: 1+ edema. Objective - Vital Signs Vital signs: Vital Signs Temp 98.0 F 09/01/19 08:00 Pulse 76 09/01/19 08:00 Resp 20 09/01/19 08:00 BP 85/53 09/01/19 08:00 Pulse Ox 100 09/01/19 08:00 Intake & Output 08/31/19 09/01/19 09/01/19 18:59 06:59 18:59 Intake Total 1147 240 Output Total 3500 Balance 1147 -3500 240 Weight 93.6 kg Intake: Oral 1147 240 Output: Urine 3500 Other: Voiding Method Urinal Urinal - Labs CBC & Chem 7: 09/01/19 04:28 09/01/19 04:28 Labs: Abnormal Lab Results - Last 24 Hours (Table) 08/31/19 09/01/19 09/01/19 Range/Units 17:35 04:28 04:28 RBC 2.90 L (4.30-5.90) m/uL Hgb 9.1 L (13.0-17.5) gm/dL Hct 28.0 L (39.0-53.0) % Plt Count 145 L (150-450) k/uL Neutrophils # 8.4 H (1.3-7.7) k/uL Lymphocytes # 0.8 L (1.0-4.8) k/uL Sodium 129 L 132 L (137-145) mmol/L Potassium 5.8 H (3.5-5.1) mmol/L Chloride 91 L 89 L (98-107) mmol/L Carbon Dioxide 38 H (22-30) mmol/L BUN 87 H 79 H (9-20) mg/dL Creatinine 1.82 H 1.63 H (0.66-1.25) mg/dL Glucose 171 H 244 H (74-99) mg/dL Total Protein 5.6 L (6.3-8.2) g/dL Microbiology - Last 24 Hours (Table) 08/30/19 04:13 Blood Culture Gram Stain - Preliminary Blood Blood Culture - Preliminary Staphylococcus aureus Assessment and Plan Plan: Assessment: 1. Acute kidney injury mostly prerenal secondary to cardiorenal syndrome. Creatinine peaked at 2.07 this admission and is down to 1.63 today. No proteinuria on UA. 2. Volume overload. Improving with diuresis. 3. Acute on chronic systolic CHF with ejection fraction less than 20% with mild to moderate mitral regurgitation. 4. Hypotension related to underlying cardiac status. 5. Hypervolemic hyponatremia. Better. 6. Hyperkalemia secondary to acute kidney injury. Improved. Plan: Maintain Lasix 80 mg twice daily. Hold Entresto systolic blood pressure less than 90. Continue to monitor renal function and urine output.
--- NOTE | 2019-09-01 14:28 | P.PN ---
Subjective Progress Note Date: 09/01/19 This is a 58-year-old male patient of Drs. Bautista, Jing and Farideh with past medical history of coronary artery disease and status post coronary artery bypass grafting and previous angioplasty and stenting so that, heart catheterization in September 2018 revealed severe stenosis of the LAD with occluded first obtuse marginal branch, chronically occluded mid right coronary artery, mild to moderate disease of the proximal left circumflex, patent JACKSON to LAD, patent saphenous vein graft to the diagonal branch and to the right PDA, severely impaired left ventricular systolic function, ischemic cardiomyopathy EF of 20% status post AICD, chronic systolic heart failure as well as chronic obstructive pulmonary disease, chronic hypoxic respiratory failure on home O2, hypertension, hyperlipidemia, chronic pain syndrome on methadone, tobacco use and dependencequit September 2018, patient presented to the emergency department at [facility] with increased shortness breath associated with increased swelling in both lower extremities and he has been checking his weight and regular basis and he noticed a sudden increase in his weight over the last 48 hours he was not catching his breath without any chest pain patient troponin was slightly elevated he was admitted to the hospital for non-ST elevation LA however because of the concern of requiring more oxygen along with the cough patient was admitted to the hospital under the droplet precautions influenza A and B will be obtained as well as COVID-19 will be obtained, pulmonary and cardiology consult was obtained. 08/30: Patient sitting up in bed, appears a bit drowsy in the morning he put his oxygen up to 8 L per nasal cannula on his own and he stated that he is having trouble with that he discuss that with his customer relations representative in the past, I advised him to cut down the oxygen level to keep saturation between 90-93% at this point but he refused, he would be seen in consultation by nephrology due to his acute kidney injury as his creatinine jumped to 0.07 from 1.67, his diuretics initially was stopped then he was restarted BiPAP nephrology at 80 mg IV push every 12 hours, we discontinued his Entresto and spironolactone, monitor the patient blood pressure very closely discontinued. As well, keep his blood pressure greater than 120 systolic at all the time. We'll repeat his labs in the morning. 08/31: Patient has been afebrile, heart rate 76, blood pressure 82/47, a flex 100% on 6 L nasal cannula. Repeat blood work reveals WBC 9.8, hemoglobin 9.1, platelet count 145. Sodium 132, potassium 4.9, chloride 89, CO2 38, BUN 79, creatinine 1.63. Blood sugar 244. Covid 19 remains pending. Blood culture is showing Staphylococcus aureus. Patient is seen today resting in bed. Appears to be comfortable at rest. He continues to have lower extremity edema. He is diuresing well with good urine output. Nephrology is recommended Lasix 80 mg twice daily. Objective - Vital Signs Vital signs: Vital Signs Temp 98.0 F 09/01/19 08:00 Pulse 76 09/01/19 08:00 Resp 20 09/01/19 08:00 BP 85/53 09/01/19 08:00 Pulse Ox 100 09/01/19 08:00 Intake & Output 08/31/19 09/01/19 09/01/19 18:59 06:59 18:59 Intake Total 1147 240 Output Total 3500 Balance 1147 -3500 240 Weight 93.6 kg Intake: Oral 1147 240 Output: Urine 3500 Other: Voiding Method Urinal Urinal - Exam Review of Systems Constitutional: Denies chills, denies fever, Denies lethargy, Denies weakness Eyes: denies blurred vision, denies bulging eye, denies decreased vision Ears, nose, mouth and throat: Denies dental pain, Denies dysphagia, Denies neck lump, Denies sore throat Cardiovascular: Reports decreased exercise tolerance, Reports dyspnea on exertion, Reports shortness of breath, Denies chest pain, Denies lightheadedness, Denies rapid heart beat, Denies syncope Respiratory: Reports cough, Reports home oxygen, Denies congestion, Denies cough with sputum, Denies sleep apnea, Denies snoring, Denies wheezing Gastrointestinal: Denies abdominal pain, Denies bloating, Denies BRBPR, Denies excessive gas, Denies heartburn, Denies melena, Denies nausea, Denies vomiting Genitourinary: Reports nocturia, Denies dysuria Musculoskeletal: Denies myalgias Musculoskeletal: absent: ankle pain, ankle stiffness, ankle swelling, elbow pain, elbow stiffness, elbow swelling, foot pain, foot stiffness, foot swelling, hand pain, hand stiffness, hand swelling, hip pain, hip stiffness, hip swelling, knee pain, knee stiffness, knee swelling, shoulder pain, shoulder stiffness, shoulder swelling, wrist pain, wrist stiffness, wrist swelling Integumentary: Denies pruritus, Denies rash Neurological: Denies numbness, Denies weakness Psychiatric: Denies anxiety, Denies depression Endocrine: Denies fatigue, Denies weight change Physical Examination: GEN: This is a 58-year-old male. He is resting in bed and appears to be comfortable. No respiratory distress noted. HEENT: Head is atraumatic, normal cephalic, pupils were equal round reactive to light and accommodation, extraocular muscle movement were intact, mucous membranes of mouth is dry. Neck: Supple, no JVP. Chest: Decreased breath sound at bases, few rhonchi, minimal expiratory wheezes, minimal intercostal retraction, there is an AICD located in the left upper precordium. Heart: First heart sound is depressed, second heart sounds normal, there is syst olic ejection murmur 2/6 located in the left sternal border, there is AICD in the left upper precordium Abdomen: Soft, nontender, nondistended, positive bowel sounds. Extremities: Trace edema, no calf tenderness, dorsalis pedis +1 bilaterally. Neurologic examination: Patient is awake alert and oriented 3, cranial nerves II-12 appear grossly intact, muscle power 4 out of 5 in upper and lower ex tremity disease bilaterally. - Labs CBC & Chem 7: 09/01/19 04:28 09/01/19 04:28 Labs: Abnormal Lab Results - Last 24 Hours (Table) 08/31/19 09/01/19 09/01/19 Range/Units 17:35 04:28 04:28 RBC 2.90 L (4.30-5.90) m/uL Hgb 9.1 L (13.0-17.5) gm/dL Hct 28.0 L (39.0-53.0) % Plt Count 145 L (150-450) k/uL Neutrophils # 8.4 H (1.3-7.7) k/uL Lymphocytes # 0.8 L (1.0-4.8) k/uL Sodium 129 L 132 L (137-145) mmol/L Potassium 5.8 H (3.5-5.1) mmol/L Chloride 91 L 89 L (98-107) mmol/L Carbon Dioxide 38 H (22-30) mmol/L BUN 87 H 79 H (9-20) mg/dL Creatinine 1.82 H 1.63 H (0.66-1.25) mg/dL Glucose 171 H 244 H (74-99) mg/dL Total Protein 5.6 L (6.3-8.2) g/dL Microbiology - Last 24 Hours (Table) 08/30/19 04:13 Blood Culture Gram Stain - Preliminary Blood Blood Culture - Preliminary Staphylococcus aureus Assessment and Plan Plan: 1. Acute on chronic hypoxemic respiratory failure due to acute on chronic systolic heart failure, COPD. Acute coronary syndrome ruled out by cardiology. Continue Lipitor 40 mg orally once every day, Coreg 3.125 mg orally twice every day, subcutaneous heparin. Continue droplet isolation for COVID-19 testing. Pulmonary and cardiology consults appreciated. 2. Coronary artery disease status post coronary artery bypass graft with PCI and ischemic cardiomyopathy post AICD. Discontinue spironolactone. Continue Entresto, Lasix at 80 mg IV every 12 hours. Monitor the patient input and output and daily weight bladder scan will be done to check for postvoid retention, if the post void residual greater than [address] and per 3. COPD without exacerbation. Continue DuoNeb 3 mg nebulization 4 times every day, continue prednisone 20 mg orally twice a day, continue Advair Diskus 250/50 one puff inhalation twice every day. 4. Hypertension and hypertensive cardiovascular disease. Continue patient on carvedilol 3.125 mg orally twice every day. 5. Hyperlipidemia. Continue Lipitor 40 mg orally once every day. 6. Acute kidney injury secondary to diuretics as well as low blood flow to the kidney. Hold Spironolactone. 7. History of tobacco use and dependence. Patient is not smoking at this point. 8. Chronic pain syndrome. Continue patient on methadone. 9. DVT prophylaxis. Continue heparin subcu. 10. GI prophylaxis. Pepcid 20 mg orally once every day. 11. Droplet precautions due to possible COVID-19. 12. Prognosis is guarded. 13. Full code. Discharge plan: home Impression and plan of care have been directed as dictated by the signing physician. Isabelle Andersen nurse practitioner acting as scribe for signing physician.
[2019-09-01] MEDS: MONTELUKAST 10 MG TAB PO SCH (20:45)
[2019-09-02] MEDS: CARVEDILOL 3.125 MG TAB PO SCH ×2 (06:10→17:18)
[2019-09-02 06:52] LABS: Calcium 8.6 mg/dL (8.4-10.2); Magnesium 2.2 mg/dL (1.6-2.3); Potassium 5.4 mmol/L (3.5-5.1)
[2019-09-02] MEDS: SYMBICORT 80-4.5 MCG INHALER (MHU) INHALATION SCH ×2 (08:08→19:01)
[2019-09-02] MEDS: ATORVASTATIN 40 MG TAB PO SCH (08:38)
[2019-09-02] MEDS: HEPARIN SODIUM,PORCINE 5,000 UNIT/ML 1 ML VIAL SQ SCH ×3 (08:38→23:13)
[2019-09-02] MEDS: FUROSEMIDE 10 MG/ML 10 ML VIAL IV SCH ×2 (08:39→20:56)
[2019-09-02] MEDS: MULTIVITAMINS, THERA 1 EACH TAB PO SCH (08:39)
[2019-09-02] MEDS: predniSONE 20 MG TAB PO SCH ×2 (08:39→20:56)
[2019-09-02] MEDS: EZETIMIBE 10 MG TAB PO SCH (08:40)
[2019-09-02] MEDS: SACUBITRIL/VALSARTAN 49 MG-51 MG TABLET PO SCH (08:40)
[2019-09-02] MEDS: METHADONE 10 MG TAB PO SCH (08:46)
[2019-09-02] MEDS: METHADONE 5 MG TAB PO SCH (08:48)
--- NOTE | 2019-09-02 09:16 | PN ---
PROGRESS NOTE Mr. Goodman has ischemic cardiomyopathy. He also has exacerbation of COPD, but clinically is doing better. He has put out some urine, breathing is easier, edema is less. Vitals are stable. There is JVD of 1 cm, no carotid bruit, S1, S2 heard normally. Short systolic murmur noted. Lungs reveal improved air entry. Lower extremity edema is improved. Plan is to continue current medications including IV diuresis and see how he does. Overall prognosis remains guarded. He has a Bi V ICD. MMODL / IJN: [id number] /
--- NOTE | 2019-09-02 09:26 | P.PN ---
Subjective Patient is seen in follow-up for acute kidney injury. Renal function is slightly worse today which is due to diuresis. He is maintained on IV Lasix. Nonoliguric. Still complaining of edema but improving. Vital signs are stable. General: The patient appeared well nourished and normally developed. HEENT: Head exam is unremarkable. Neck is without jugular venous distension. LUNGS: Lungs are clear to auscultation and percussion. Breath sounds decreased. HEART: Rate and Rhythm are regular. First and second heart sounds normal. No murmurs, rubs or gallops. ABDOMEN: Soft. No tenderness. EXTREMITITES: 1+ edema. Objective - Vital Signs Vital signs: Vital Signs Temp 96.5 F L 09/02/19 08:00 Pulse 82 09/02/19 08:00 Resp 20 09/02/19 08:00 BP 100/60 09/02/19 08:00 Pulse Ox 94 L 09/02/19 08:00 Intake & Output 09/01/19 09/02/19 09/02/19 18:59 06:59 18:59 Intake Total 1608 240 420 Output Total 1000 1450 Balance 608 -1210 420 Weight 95.1 kg Intake: Oral 1608 240 420 Output: Urine 1000 1450 Uretheral (Whitlock) 300 Other: Voiding Method Urinal Indwelling Catheter # Voids 2 - Labs CBC & Chem 7: 09/01/19 04:28 09/02/19 05:20 Labs: Abnormal Lab Results - Last 24 Hours (Table) 09/02/19 Range/Units 05:20 Sodium 132 L (137-145) mmol/L Potassium 5.4 H (3.5-5.1) mmol/L Chloride 91 L (98-107) mmol/L BUN 89 H (9-20) mg/dL Creatinine 1.75 H (0.66-1.25) mg/dL Glucose 213 H (74-99) mg/dL Assessment and Plan Plan: Assessment: 1. Acute kidney injury mostly prerenal secondary to cardiorenal syndrome. Renal function slightly worse which is due to diuresis. Creatinine 1.75 today. No proteinuria on UA. 2. Volume overload. Improving with diuresis. 3. Acute on chronic systolic CHF with ejection fraction less than 20% with mild to moderate mitral regurgitation. 4. Hypotension related to underlying cardiac status. 5. Hypervolemic hyponatremia. Better. 6. Hyperkalemia secondary to acute kidney injury and entresto. Blood sugars a lso slightly on the higher side. Plan: Maintain Lasix 80 mg twice daily For another 24 hours. Hold Entresto systolic blood pressure less than 90. Continue to monitor renal function and urine output.
[2019-09-02 12:08] LABS: Glucose,Whole Blood 223 mg/dL (75-99)
[2019-09-02] MEDS: INSULIN ASPART (NovoLOG) 100 UNIT/ML VIAL SQ SCH ×3 (12:26→20:53)
--- NOTE | 2019-09-02 13:05 | P.PN ---
Subjective Progress Note Date: 09/02/19 This is a 58-year-old male patient of Drs. Bautista, Jing and Farideh with past medical history of coronary artery disease and status post coronary artery bypass grafting and previous angioplasty and stenting so that, heart catheterization in September 2018 revealed severe stenosis of the LAD with occluded first obtuse marginal branch, chronically occluded mid right coronary artery, mild to moderate disease of the proximal left circumflex, patent JACKSON to LAD, patent saphenous vein graft to the diagonal branch and to the right PDA, severely impaired left ventricular systolic function, ischemic cardiomyopathy EF of 20% status post AICD, chronic systolic heart failure as well as chronic obstructive pulmonary disease, chronic hypoxic respiratory failure on home O2, hypertension, hyperlipidemia, chronic pain syndrome on methadone, tobacco use and dependencequit September 2018, patient presented to the emergency department at [facility] with increased shortness breath associated with increased swelling in both lower extremities and he has been checking his weight and regular basis and he noticed a sudden increase in his weight over the last 48 hours he was not catching his breath without any chest pain patient troponin was slightly elevated he was admitted to the hospital for non-ST elevation MD however because of the concern of requiring more oxygen along with the cough patient was admitted to the hospital under the droplet precautions influenza A and B will be obtained as well as COVID-19 will be obtained, pulmonary and cardiology consult was obtained. 08/30: Patient sitting up in bed, appears a bit drowsy in the morning he put his oxygen up to 8 L per nasal cannula on his own and he stated that he is having trouble with that he discuss that with his marine biologist in the past, I advised him to cut down the oxygen level to keep saturation between 90-93% at this point but he refused, he would be seen in consultation by nephrology due to his acute kidney injury as his creatinine jumped to 0.07 from 1.67, his diuretics initially was stopped then he was restarted BiPAP nephrology at 80 mg IV push every 12 hours, we discontinued his Entresto and spironolactone, monitor the patient blood pressure very closely discontinued. As well, keep his blood pressure greater than 120 systolic at all the time. We'll repeat his labs in the morning. 08/31: Patient has been afebrile, heart rate 76, blood pressure 82/47, a flex 100% on 6 L nasal cannula. Repeat blood work reveals WBC 9.8, hemoglobin 9.1, platelet count 145. Sodium 132, potassium 4.9, chloride 89, CO2 38, BUN 79, creatinine 1.63. Blood sugar 244. Covid 19 remains pending. Blood culture is showing Staphylococcus aureus. Patient is seen today resting in bed. Appears to be comfortable at rest. He continues to have lower extremity edema. He is diuresing well with good urine output. Nephrology is recommended Lasix 80 mg twice daily. 09/01: COVID-19 testing came back negative. Droplet isolation discontinued. Patient is afebrile, heart rate 82. Blood pressure currently 100/60, pulse ox 94% on 6 L nasal cannula. Repeat blood work reveals sodium 132, potassium 5.4, chloride 91, CO2 30, BUN [address], [address] Magana is planning for another day of Lasix [address] MYRA Marroquin recommends continuing the current medications. Patient has had low blood pressure during the night and yesterday. Entresto will be discontinued. His Whitlock catheter and with good urine output. He continues to have lower extremity edema. He denies having any blood in the stools, no gastric reflux. Because blood sugars have been elevated, hemoglobin A1c will be checked. NovoLog scale added. Objective - Vital Signs Vital signs: Vital Signs Temp 96.5 F L 09/02/19 08:00 Pulse 82 09/02/19 08:00 Resp 20 09/02/19 08:00 BP 100/60 09/02/19 08:00 Pulse Ox 94 L 09/02/19 08:00 Intake & Output 09/01/19 09/02/19 09/02/19 18:59 06:59 18:59 Intake Total 1608 240 420 Output Total 1000 1450 Balance 608 -1210 420 Weight 95.1 kg Intake: Oral 1608 240 420 Output: Urine 1000 1450 Uretheral (Whitlock) 300 Other: Voiding Method Urinal Indwelling Catheter # Voids 2 - Exam Review of Systems Constitutional: Denies chills, denies fever, Denies lethargy, Denies weakness Eyes: denies blurred vision, denies bulging eye, denies decreased vision Ears, nose, mouth and throat: Denies dental pain, Denies dysphagia, Denies neck lump, Denies sore throat Cardiovascular: Reports decreased exercise tolerance, Reports dyspnea on exertion, Reports shortness of breath, Denies chest pain, Denies lightheadedness, Denies rapid heart beat, Denies syncope Respiratory: Reports cough, denies home oxygen, Denies congestion, Denies cough with sputum, Denies sleep apnea, Denies snoring, Denies wheezing Gastrointestinal: Denies abdominal pain, Denies bloating, Denies BRBPR, Denies excessive gas, Denies heartburn, Denies melena, Denies nausea, Denies vomiting Genitourinary: Reports nocturia, Denies dysuria Musculoskeletal: Denies myalgias Musculoskeletal: absent: ankle pain, ankle stiffness, ankle swelling, elbow pain, elbow stiffness, elbow swelling, foot pain, foot stiffness, foot swelling, hand pain, hand stiffness, hand swelling, hip pain, hip stiffness, hip swelling, knee pain, knee stiffness, knee swelling, shoulder pain, shoulder stiffness, shoulder swelling, wrist pain, wrist stiffness, wrist swelling Integumentary: Denies pruritus, Denies rash Neurological: Denies numbness, Denies weakness Psychiatric: Denies anxiety, Denies depression Endocrine: Denies fatigue, Denies weight change Physical Examination: GEN: This is a 58-year-old male. He is resting in bed and appears to be comfortable. No respiratory distress noted at rest. HEENT: Head is atraumatic, normal cephalic, pupils were equal round reactive to light and accommodation, extraocular muscle movement were intact, mucous membranes of mouth is dry. Neck: Supple, no JVP. Chest: Decreased breath sound at bases, few rhonchi, minimal expiratory wheezes, minimal intercostal retraction, there is an AICD located in the left upper precordium. Heart: First heart sound is depressed, second heart sounds normal, there is systolic ejection murmur 2/6 located in the left sternal border, there is AICD in the left upper precordium Abdomen: Soft, nontender, nondistended, positive bowel sounds. Extremities: Trace edema, no calf tenderness, dorsalis pedis +1 bilaterally. Neurologic examination: Patient is awake alert and oriented 3, cranial nerves II-12 appear grossly intact, muscle power 4 out of 5 in upper and lower extremity disease bilaterally. - Labs CBC & Chem 7: 09/01/19 04:28 09/02/19 05:20 Labs: Abnormal Lab Results - Last 24 Hours (Table) 09/02/19 Range/Units 05:20 Sodium 132 L (137-145) mmol/L Potassium 5.4 H (3.5-5.1) mmol/L Chloride 91 L (98-107) mmol/L BUN 89 H (9-20) mg/dL Creatinine 1.75 H (0.66-1.25) mg/dL Glucose 213 H (74-99) mg/dL Assessment and Plan Plan: 1. Acute on chronic hypoxemic respiratory failure due to acute on chronic systolic heart failure, COPD. Acute coronary syndrome ruled out by cardiology. Continue Lipitor 40 mg orally once every day, Coreg 3.125 mg orally twice every day, subcutaneous heparin. Pulmonary and cardiology consults appreciated. 2. Coronary artery disease status post coronary artery bypass graft with PCI and ischemic cardiomyopathy post AICD. Discontinue spironolactone. Discontinue Entresto. Continue Lasix at 80 mg IV every 12 hours for another day. Monitor the patient input and output and daily weight bladder scan will be done to check for postvoid retention, if the post void residual greater than [address] and per 3. COPD without exacerbation. Continue DuoNeb 3 mg nebulization 4 times every day, continue prednisone 20 mg orally twice a day, continue Advair Diskus 250/50 one puff inhalation twice every day. 4. Hypertension and hypertensive cardiovascular disease. Continue patient on carvedilol 3.125 mg orally twice every day. 5. Hyperlipidemia. Continue Lipitor 40 mg orally once every day. 6. Acute kidney injury secondary to diuretics as well as low blood flow to the kidney. Hold Spironolactone. 7. History of tobacco use and dependence. Patient is not smoking at this point. 8. Chronic pain syndrome. Continue patient on methadone. 9. DVT prophylaxis. Continue heparin subcu. 10. GI prophylaxis. Pepcid 20 mg orally once every day. 11. Droplet precautions due to possible COVID-19. 12. Prognosis is guarded. 13. Full code. Discharge plan: home Impression and plan of care have been directed as dictated by the signing physician. Isabelle Andersen nurse practitioner acting as scribe for signing physician.
[2019-09-02] MEDS: SODIUM CHLORIDE 0.65% NASAL SPRAY 44 ML BTL NASAL SCH ×2 (15:49→20:56)
[2019-09-02 16:59] LABS: Glucose,Whole Blood 132 mg/dL (75-99)
[2019-09-02 20:44] LABS: Glucose,Whole Blood 95 mg/dL (75-99)
[2019-09-02] MEDS: MONTELUKAST 10 MG TAB PO SCH (20:56)
[2019-09-03 06:19] LABS: Glucose,Whole Blood 143 mg/dL (75-99)
[2019-09-03] MEDS: CARVEDILOL 3.125 MG TAB PO SCH ×2 (06:28→17:25)
[2019-09-03] MEDS: INSULIN ASPART (NovoLOG) 100 UNIT/ML VIAL SQ SCH ×4 (06:28→20:41)
[2019-09-03 07:18] LABS: Calcium 8.8 mg/dL (8.4-10.2); Magnesium 2.2 mg/dL (1.6-2.3)
[2019-09-03] MEDS: FUROSEMIDE 10 MG/ML 10 ML VIAL IV SCH (08:13)
[2019-09-03] MEDS: METHADONE 10 MG TAB PO SCH (08:14)
[2019-09-03] MEDS: MULTIVITAMINS, THERA 1 EACH TAB PO SCH (08:15)
[2019-09-03] MEDS: EZETIMIBE 10 MG TAB PO SCH (08:15)
[2019-09-03] MEDS: HEPARIN SODIUM,PORCINE 5,000 UNIT/ML 1 ML VIAL SQ SCH ×3 (08:15→22:25)
[2019-09-03] MEDS: METHADONE 5 MG TAB PO SCH (08:15)
[2019-09-03] MEDS: predniSONE 20 MG TAB PO SCH (08:15)
[2019-09-03] MEDS: ATORVASTATIN 40 MG TAB PO SCH (08:15)
[2019-09-03] MEDS: SYMBICORT 80-4.5 MCG INHALER (MHU) INHALATION SCH ×2 (08:50→20:56)
--- NOTE | 2019-09-03 09:54 | P.PN ---
Subjective Patient is seen in follow-up for acute kidney injury. Renal function is stable. He is maintained on IV Lasix. Nonoliguric. Edema improving. Vital signs are stable. General: The patient appeared well nourished and normally developed. HEENT: Head exam is unremarkable. Neck is without jugular venous distension. LUNGS: Lungs are clear to auscultation and percussion. Breath sounds decreased. HEART: Rate and Rhythm are regular. First and second heart sounds normal. No murmurs, rubs or gallops. ABDOMEN: Soft. No tenderness. EXTREMITITES: 1+ edema. Objective - Vital Signs Vital signs: Vital Signs Temp 97.3 F L 09/03/19 08:00 Pulse 75 09/03/19 08:00 Resp 18 09/03/19 08:00 BP 94/51 09/03/19 08:00 Pulse Ox 98 09/03/19 08:00 Intake & Output 09/02/19 09/03/19 09/03/19 18:59 06:59 18:59 Intake Total 1134 100 360 Output Total 1500 1900 Balance -366 -1800 360 Weight 94.2 kg Intake: Oral 1134 100 360 Output: Urine 1500 1900 Other: Voiding Method Indwelling Catheter Indwelling Catheter Indwelling Catheter - Labs CBC & Chem 7: 09/01/19 04:28 09/03/19 05:43 Labs: Abnormal Lab Results - Last 24 Hours (Table) 09/02/19 09/02/19 09/03/19 Range/Units 12:06 16:57 05:43 Sodium 133 L (137-145) mmol/L Chloride 92 L (98-107) mmol/L Carbon Dioxide 34 H (22-30) mmol/L BUN 80 H (9-20) mg/dL Creatinine 1.57 H (0.66-1.25) mg/dL Glucose 120 H (74-99) mg/dL POC Glucose (mg/dL) 223 H 132 H (75-99) mg/dL 09/03/19 Range/Units 06:17 Sodium (137-145) mmol/L Chloride (98-107) mmol/L Carbon Dioxide (22-30) mmol/L BUN (9-20) mg/dL Creatinine (0.66-1.25) mg/dL Glucose (74-99) mg/dL POC Glucose (mg/dL) 143 H (75-99) mg/dL Microbiology - Last 24 Hours (Table) 08/30/19 04:13 Blood Culture Gram Stain - Final Blood Blood Culture - Final Staphylococcus aureus Assessment and Plan Plan: Assessment: 1. Acute kidney injury mostly prerenal secondary to cardiorenal syndrome. Renal function stable. Creatinine 1.57 today. No proteinuria on UA. 2. Volume overload. Improving with diuresis. 3. Acute on chronic systolic CHF with ejection fraction less than 20% with mild to moderate mitral regurgitation. 4. Hypotension related to underlying cardiac status. 5. Hypervolemic hyponatremia. Better. 6. Hyperkalemia secondary to acute kidney injury and entresto. Blood sugars also slightly on the higher side. Better. Plan: Maintain Lasix 80 mg orally twice daily. Tight blood sugar control. Hold Entresto systolic blood pressure less than 90. Continue to monitor renal function and urine output. I advised them to follow low-salt diet and 50 oz fluid restriction per day. I also advised him to weigh himself daily and to call our office if gains more than 2-3 pounds or has worsening of edema.
--- NOTE | 2019-09-03 10:46 | XR ---
EXAMINATION TYPE: XR chest 2V DATE OF EXAM: 09/03/2019 COMPARISON: 08/30/2019 HISTORY: 58-year-old male follow-up CHF, congestion TECHNIQUE: PA and lateral views FINDINGS: Median sternotomy wires are present with posterior clips in the mediastinum. Heart upper limits of no rmal in size. Redemonstrated a centric elevation right hemidiaphragm. Left anterior chest wall AICD g enerator with right atrial and right ventricular leads. There is some patchy left basilar opacity wit hout pleural effusion. IMPRESSION: 1. Similar asymmetric elevation right hemidiaphragm. Consider possibility of hemidiaphragmatic paraly sis. 2. Patchy left basilar atelectasis versus infiltrate. This region was previously obscured by the over lying pacemaker generator.
[2019-09-03 11:40] LABS: Glucose,Whole Blood 117 mg/dL (75-99)
--- NOTE | 2019-09-03 14:01 | P.PN ---
Subjective Progress Note Date: 09/03/19 This is a 58-year-old male patient of Drs. Bautista, Jing and Farideh with past medical history of coronary artery disease and status post coronary artery bypass grafting and previous angioplasty and stenting so that, heart catheterization in September 2018 revealed severe stenosis of the LAD with occluded first obtuse marginal branch, chronically occluded mid right coronary artery, mild to moderate disease of the proximal left circumflex, patent JACKSON to LAD, patent saphenous vein graft to the diagonal branch and to the right PDA, severely impaired left ventricular systolic function, ischemic cardiomyopathy EF of 20% status post AICD, chronic systolic heart failure as well as chronic obstructive pulmonary disease, chronic hypoxic respiratory failure on home O2, hypertension, hyperlipidemia, chronic pain syndrome on methadone, tobacco use and dependencequit September 2018, patient presented to the emergency department at [facility] with increased shortness breath associated with increased swelling in both lower extremities and he has been checking his weight and regular basis and he noticed a sudden increase in his weight over the last 48 hours he was not catching his breath without any chest pain patient troponin was slightly elevated he was admitted to the hospital for non-ST elevation [place] however because of the concern of requiring more oxygen along with the cough patient was admitted to the hospital under the droplet precautions influenza A and B will be obtained as well as COVID-19 will be obtained, pulmonary and cardiology consult was obtained. 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 As well, keep his blood pressure greater than 120 systolic at all the time. We'll repeat his labs in the morning. 08/31: Patient has been afebrile, heart rate 76, blood pressure 82/47, a flex 100% on 6 L nasal cannula. Repeat blood work reveals WBC 9.8, hemoglobin 9.1, platelet count 145. Sodium 132, potassium 4.9, chloride 89, CO2 38, BUN 79, creatinine 1.63. Blood sugar 244. Covid 19 remains pending. Blood culture is showing Staphylococcus aureus. Patient is seen today resting in bed. Appears to be comfortable at rest. He continues to have lower extremity edema. He is diuresing well with good urine output. Nephrology is recommended Lasix 80 mg twice daily. 09/01: COVID-19 testing came back negative. Droplet isolation discontinued. Patient is afebrile, heart rate 82. Blood pressure currently 100/60, pulse ox 94% on 6 L nasal cannula. Repeat blood work reveals sodium 132, potassium 5.4, chloride 91, CO2 30, BUN [address] Magana is planning for another day of Lasix [address] MYRA Marroquin recommends continuing the current medications. Patient has had low blood pressure during the night and yesterday. Entresto will be discontinued. His Whitlock catheter and with good urine output. He continues to have lower extremity edema. He denies having any blood in the stools, no gastric reflux. Because blood sugars have been elevated, hemoglobin A1c will be checked. NovoLog scale added. 09/02: Patient noted to have positive blood culture with MSSA. Rocephin will be started and consult with Dr. Ochoa. Echocardiogram will be ordered to assess for vegetation. Consult added for registered dietitian regarding heart failure diet and weight loss. Patient to be on a low-salt diet and 50 ounce fluid restriction per day. Cardiology was added in Zaroxolyn and IV Lasix changed to oral 80 mg twice daily. Objective - Vital Signs Vital signs: Vital Signs Temp 97.3 F L 09/03/19 08:00 Pulse 75 09/03/19 08:00 Resp 18 09/03/19 08:00 BP 94/51 09/03/19 08:00 Pulse Ox 98 09/03/19 08:00 Intake & Output 09/02/19 09/03/19 09/03/19 18:59 06:59 18:59 Intake Total 1134 100 360 Output Total 1500 1900 Balance -366 -1800 360 Weight 94.2 kg Intake: Oral 1134 100 360 Output: Urine 1500 1900 Other: Voiding Method Indwelling Catheter Indwelling Catheter - Exam Review of Systems Constitutional: Denies chills, denies fever, Denies lethargy, Denies weakness Eyes: denies blurred vision, denies bulging eye Ears, nose, mouth and throat: Denies dental pain, Denies dysphagia, Denies neck lump, Denies sore throat Cardiovascular: Reports decreased exercise tolerance, Reports dyspnea on exertion, Reports shortness of breath, Denies chest pain, Denies lightheadedness, Denies rapid heart beat, Denies syncope Respiratory: Reports cough, denies home oxygen, Denies congestion, Denies cough with sputum, Denies sleep apnea, Denies snoring, Denies wheezing Gastrointestinal: Denies abdominal pain, Denies bloating, Denies BRBPR, Denies excessive gas, Denies heartburn, Denies melena, Denies nausea, Denies vomiting Genitourinary: Reports nocturia, Denies dysuria Musculoskeletal: Denies myalgias Musculoskeletal: absent: ankle pain, ankle stiffness, ankle swelling, elbow pain, elbow stiffness, elbow swelling, foot pain, foot stiffness, foot swelling, hand pain, hand stiffness, hand swelling, hip pain, hip stiffness, hip swelling, knee pain, knee stiffness, knee swelling, shoulder pain, shoulder stiffness, shoulder swelling, wrist pain, wrist stiffness, wrist swelling Integumentary: Denies pruritus, Denies rash Neurological: Denies numbness, Denies weakness Psychiatric: Denies anxiety, Denies depression Endocrine: Denies fatigue, Denies weight change Physical Examination: GEN: This is a 58-year-old male. He is resting in bed and appears to be comfortable. No respiratory distress noted at rest. HEENT: Head is atraumatic, normal cephalic, pupils were equal round reactive to light and accommodation, extraocular muscle movement were intact, mucous membranes of mouth is dry. Neck: Supple, no JVP. Chest: Decreased breath sound at bases, few rhonchi, minimal expiratory wheezes, minimal intercostal retraction, there is an AICD located in the left upper precordium. Heart: First heart sound is depressed, second heart sounds normal, there is sy stolic ejection murmur 2/6 located in the left sternal border, there is AICD in the left upper precordium Abdomen: Soft, nontender, nondistended, positive bowel sounds. Extremities: Trace edema, no calf tenderness, dorsalis pedis +1 bilaterally. Neurologic examination: Patient is awake alert and oriented 3, cranial nerves II-12 appear grossly intact, muscle power 4 out of 5 in upper and lower extremity disease bilaterally. - Labs CBC & Chem 7: 09/01/19 04:28 09/03/19 05:43 Labs: Abnormal Lab Results - Last 24 Hours (Table) 09/02/19 09/02/19 09/03/19 Range/Units 12:06 16:57 05:43 Sodium 133 L (137-145) mmol/L Chloride 92 L (98-107) mmol/L Carbon Dioxide 34 H (22-30) mmol/L BUN 80 H (9-20) mg/dL Creatinine 1.57 H (0.66-1.25) mg/dL Glucose 120 H (74-99) mg/dL POC Glucose (mg/dL) 223 H 132 H (75-99) mg/dL 09/03/19 Range/Units 06:17 Sodium (137-145) mmol/L Chloride (98-107) mmol/L Carbon Dioxide (22-30) mmol/L BUN (9-20) mg/dL Creatinine (0.66-1.25) mg/dL Glucose (74-99) mg/dL POC Glucose (mg/dL) 143 H (75-99) mg/dL Microbiology - Last 24 Hours (Table) 08/30/19 04:13 Blood Culture Gram Stain - Final Blood Blood Culture - Final Staphylococcus aureus Assessment and Plan Plan: 1. Acute on chronic hypoxemic respiratory failure due to acute on chronic systolic heart failure, COPD. Acute coronary syndrome ruled out by cardiology. Continue Lasix 80 mg oral twice daily, Zaroxolyn 2.5 mg daily. Continue Lipitor 40 mg orally once every day, Coreg 3.125 mg orally twice every day, subcutaneous heparin. Pulmonary and cardiology consults appreciated. 2. Coronary artery disease status post coronary artery bypass graft with PCI and ischemic cardiomyopathy post AICD. Discontinue spironolactone. Discontinue Entresto. Continue Lasix at 80 mg IV every 12 hours for another day. Monitor the patient input and output and daily weight bladder scan will be done to check for postvoid retention, if the post void residual greater than [address] and per 3. COPD without exacerbation. Continue DuoNeb 3 mg nebulization 4 times every day, continue prednisone 20 mg orally twice a day, continue Advair Diskus 250/50 one puff inhalation twice every day. 4. Hypertension and hypertensive cardiovascular disease. Continue patient on carvedilol 3.125 mg orally twice every day. 5. Hyperlipidemia. Continue Lipitor 40 mg orally once every day. 6. Acute kidney injury secondary to diuretics as well as low blood flow to the kidney. Hold Spironolactone. 7. History of tobacco use and dependence. Patient is not smoking at this point. 8. Chronic pain syndrome. Continue patient on methadone. 9. DVT prophylaxis. Continue heparin subcu. 10. GI prophylaxis. Pepcid 20 mg orally once every day. 11. MSSA bacteremia. Consult with Dr. Don sharma. Patient now on Kefzol 2 g every 8 hours. Repeat blood cultures been ordered. Full code. Discharge plan: home possibly in the next 24 hours. Impression and plan of care have been directed as dictated by the signing physician. Isabelle Andersen nurse practitioner acting as scribe for signing physician.
--- NOTE | 2019-09-03 15:00 | ECHOF ---
Referral Reason:vegetation, +blood cx MEASUREMENTS -------- HEIGHT: 172.7 cm WEIGHT: 93.9 kg BP: IVSd: 1.8 cm (0.6 - 1.1) LVIDd: 5.7 cm (3.9 - 5.3) LVPWd: 2.2 cm (0.6 - 1.1) IVSs: 1.9 cm LVIDs: 5.1 cm LVPWs: 2.4 cm LAESV Index (A-L): 39.25 ml/m Ao Diam: 3.3 cm (2.0 - 3.7) AV Cusp: 1.7 cm (1.5 - 2.6) MV E Parth: 0.39 m/s MV DecT: 138 ms MV A Parth: 0.65 m/s MV E/A Ratio: 0.60 RAP: 5.00 mmHg RVSP: 18.87 mmHg FINDINGS -------- Sinus rhythm. This was a technically difficult study with suboptimal views. The left ventricle is mildly dilated. There is moderate concentric left ventricular hypertrophy. There is severe global hypokinesis of LV . Overall left ventricular systolic function is severely i mpaired with, an EF between 20 - 25 %. Mitral Doppler inflow pattern suggests diastolic filling abn ormality 9.77. The RV was not well visualized. LA is moderately dilated 34-39 ml/m2 The right atrium was not well visualized. 5.0mg of Lumason was utilized for enhancement of images Interatrial and interventricular septum intact. The aortic valve was not well visualized. There is no evidence of aortic regurgitation. There is no evidence of aortic stenosis. Cannot rule out vegetation. Mild mitral annular calcification present. Moderate mitral regurgitation is present. The tricuspid valve was not well visualized. Mild tricuspid regurgitation present. There is no ev idence of pulmonary hypertension. The right ventricular systolic pressure, as measured by Doppler, is 18.87mmHg. The pulmonic valve was not well visualized. There is no pulmonic regurgitation present. The aortic root size is normal. IVC Not well visulized. There is no pericardial effusion. CONCLUSIONS -------- 1. This was a technically difficult study with suboptimal views. 2. The left ventricle is mildly dilated. 3. There is moderate concentric left ventricular hypertrophy. 4. There is severe global hypokinesis of LV . 5. Overall left ventricular systolic function is severely impaired with, an EF between 20 - 25 %. 6. Mitral Doppler inflow pattern suggest diastolic filling abnormality 9.77. 7. The RV was not well visualized. 8. LA is moderately dilated 34-39 ml/m2 9. 5.0mg of Lumason was utilized for enhancement of images 10. The aortic valve was not well visualized. 11. There is no evidence of aortic regurgitation. 12. There is no evidence of aortic stenosis. 13. Cannot rule out vegetation. 14. Mild mitral annular calcification present. 15. Moderate mitral regurgitation is present. 16. The tricuspid valve was not well visualized. 17. Mild tricuspid regurgitation present. 18. There is no evidence of pulmonary hypertension. 19. The pulmonic valve was not well visualized. 20. There is no pulmonic regurgitation present. 21. IVC Not well visulized. 22. There is no pericardial effusion. PROGRAMMING MANAGER: Thalia Galindo RDCS
--- NOTE | 2019-09-03 15:07 | P.PN ---
Subjective Progress Note Date: 09/03/19 This is a pleasant 58-year-old gentleman with a known history of coronary artery disease and prior bypass surgery as well as stent placement, ischemic cardiomyopathy with prior documented ejection fraction of 20%, he has an AICD. Patient also has history of hypertension, hyperlipidemia, chronic pain on methadone, nicotine dependence, he quit in September 2018, presented to the hospital with symptoms of progressively worsening shortness of breath with associated bilateral peripheral edema. Overall been diuresing very well on IV Lasix. Today he states he's feeling significantly better, however he does fear that when his oxygen is removed that he may not be able to breathe and that he'll go back into heart failure .Continues to have lower extremity edema however significantly improved from admission here. Dr. August Marroquin did see the patient today, requested that the IV Lasix be discontinued and patient be started on Lasix 80 mg one tablet by mouth twice a day. His recommendation was also to initiate the patient on a daily dose of Zaroxolyn 2.5 mg daily. Repeat chest x-ray in the morning. BUN and creatinine today 80 and 1.5. Objective - Vital Signs Vital signs: Vital Signs Temp 97.6 F 09/03/19 11:52 Pulse 68 09/03/19 11:52 Resp 18 09/03/19 11:52 BP 120/68 09/03/19 11:52 Pulse Ox 95 09/03/19 11:52 Intake & Output 09/02/19 09/03/19 09/03/19 18:59 06:59 18:59 Intake Total 1134 100 720 Output Total 1500 1900 Balance -366 -1800 720 Weight 94.2 kg Intake: Oral 1134 100 720 Output: Urine 1500 1900 Other: Voiding Method Indwelling Catheter Indwelling Catheter Indwelling Catheter # Voids 2 - Exam PHYSICAL EXAMINATION: GENERAL: 58-year-old gentleman in no acute distress at the time of my examination HEENT: Head is atraumatic, normocephalic. Pupils equal, round. Sclera anicteric. Conjunctiva are clear. Mucous membranes of the mouth are moist. Neck is supple. There is no elevated jugular venous pressure. No carotid bruit is heard. HEART EXAMINATION: Heart S1 S2 1 systolic murmur is heard CHEST EXAMINATION: And circumflex clear with diminished air entry to the bases bilaterally ABDOMEN: Soft, nontender. Bowel sounds are heard. No organomegaly noted. EXTREMITIES: 2+ peripheral pulses with 1+ evidence of peripheral edema and no calf tenderness noted. NEUROLOGIC patient is awake, alert and oriented 3 . . - Labs CBC & Chem 7: 09/01/19 04:28 09/03/19 05:43 Labs: Abnormal Lab Results - Last 24 Hours (Table) 09/02/19 09/03/19 09/03/19 Range/Units 16:57 05:43 06:17 Sodium 133 L (137-145) mmol/L Chloride 92 L (98-107) mmol/L Carbon Dioxide 34 H (22-30) mmol/L BUN 80 H (9-20) mg/dL Creatinine 1.57 H (0.66-1.25) mg/dL Glucose 120 H (74-99) mg/dL POC Glucose (mg/dL) 132 H 143 H (75-99) mg/dL 09/03/19 Range/Units 11:37 Sodium (137-145) mmol/L Chloride (98-107) mmol/L Carbon Dioxide (22-30) mmol/L BUN (9-20) mg/dL Creatinine (0.66-1.25) mg/dL Glucose (74-99) mg/dL POC Glucose (mg/dL) 117 H (75-99) mg/dL Microbiology - Last 24 Hours (Table) 08/30/19 04:13 Blood Culture Gram Stain - Final Blood Blood Culture - Final Staphylococcus aureus Assessment and Plan Plan: Assessment and Plan: 1. Acute on chronic hypoxemic respiratory failure due to acute on chronic systolic heart failure, COPD. 2. Coronary artery disease status post coronary artery bypass graft with PCI and ischemic cardiomyopathy post AICD. 3. COPD without exacerbation. 4. Hypertension and hypertensive cardiovascular disease. 5. Hyperlipidemia. 6. Acute kidney injury secondary to diuretics as well as low blood flow to the kidney. 7. History of tobacco use and dependence. Patient is not smoking at this point. 8. Chronic pain syndrome. Plan We will discontinue the IV Lasix and put the patient on Lasix 80 mg one tablet by mouth twice a day, and initiate Zaroxolyn 2-1/2 mg daily, repeat chest x-ray in the morning. Continue to monitor the intake and output along with daily weights and daily lytes BUN and creatinine. DNP note has been reviewed, I agree with a documented findings and plan of care. Patient was seen and examined.
[2019-09-03] MEDS: FUROSEMIDE 80 MG TAB PO SCH (15:56)
[2019-09-03] MEDS: SODIUM CHLORIDE 0.65% NASAL SPRAY 44 ML BTL NASAL SCH ×2 (15:56→21:10)
[2019-09-03 16:53] LABS: Glucose,Whole Blood 178 mg/dL (75-99)
[2019-09-03 20:39] LABS: Glucose,Whole Blood 149 mg/dL (75-99)
[2019-09-03] MEDS: MONTELUKAST 10 MG TAB PO SCH (21:09)
[2019-09-03] MEDS: predniSONE 10 MG TAB PO SCH (21:09)
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
[2019-09-04 06:25] LABS: Glucose,Whole Blood 159 mg/dL (75-99)
[2019-09-04] MEDS: CARVEDILOL 3.125 MG TAB PO SCH ×2 (06:26→09:30)
[2019-09-04] MEDS: INSULIN ASPART (NovoLOG) 100 UNIT/ML VIAL SQ SCH ×4 (06:26→20:21)
--- NOTE | 2019-09-04 07:24 | XR ---
EXAMINATION TYPE: XR chest 2V DATE OF EXAM: 09/04/2019 COMPARISON: 09/03/2019 HISTORY: Pneumonia. Shortness of breath. Follow-up exam. TECHNIQUE: Frontal and lateral views of the chest are obtained. FINDINGS: Multilead left-sided cardiac device is seen with post CABG changes of heart. Cardiomediast inal silhouette is enlarged. Right hemidiaphragm elevation is seen. Strand-like atelectasis at the stoney ng bases. No new focal consolidation, sizable pleural effusion, or pneumothorax. IMPRESSION: 1. Redemonstration of right hemidiaphragm elevation that could relate to diaphragmatic paralysis. 2. Strand-like bibasilar atelectasis.
[2019-09-04 07:37] LABS: Albumin 3.6 g/dL (3.5-5.0); Calcium 8.7 mg/dL (8.4-10.2); Potassium 4.2 mmol/L (3.5-5.1); Total Bilirubin 0.3 mg/dL (0.2-1.3); Total Protein 5.8 g/dL (6.3-8.2)
[2019-09-04 07:42] LABS: Basophils % (A) 0 %; Eosinophils % (A) 0 %; HCT 28.9 % (39.0-53.0); HGB 9.5 gm/dL (13.0-17.5); Lymphocytes # (A) 1.6 k/uL (1.0-4.8); Lymphocytes % (A) 18 %; MCH 31.8 pg (25.0-35.0); MCHC 32.9 g/dL (31.0-37.0); MCV 96.8 fL (80.0-100.0); Mean Platelet Volume 7.4; Monocytes # (A) 0.6 k/uL (0-1.0); Monocytes % (A) 7 %; Neutrophils # (A) 6.5 k/uL (1.3-7.7); Neutrophils % (A) 73 %; Platelet Count 162 k/uL (150-450); RBC 2.99 m/uL (4.30-5.90); WBC 8.9 k/uL (3.8-10.6)
[2019-09-04] MEDS: SYMBICORT 80-4.5 MCG INHALER (MHU) INHALATION SCH ×2 (08:39→20:56)
[2019-09-04] MEDS ORDERED: METOLAZONE 2.5 MG TAB PO SCH (09:00)
[2019-09-04] MEDS: METHADONE 10 MG TAB PO SCH (09:29)
[2019-09-04] MEDS: METHADONE 5 MG TAB PO SCH (09:30)
[2019-09-04] MEDS: ATORVASTATIN 40 MG TAB PO SCH (09:30)
[2019-09-04] MEDS: FUROSEMIDE 80 MG TAB PO SCH ×2 (09:30→17:48)
[2019-09-04] MEDS: MULTIVITAMINS, THERA 1 EACH TAB PO SCH (09:30)
[2019-09-04] MEDS: predniSONE 10 MG TAB PO SCH ×2 (09:31→21:02)
[2019-09-04] MEDS: HEPARIN SODIUM,PORCINE 5,000 UNIT/ML 1 ML VIAL SQ SCH ×3 (09:31→22:13)
[2019-09-04] MEDS: SODIUM CHLORIDE 0.65% NASAL SPRAY 44 ML BTL NASAL SCH ×2 (09:32→21:03)
[2019-09-04] MEDS: EZETIMIBE 10 MG TAB PO SCH (09:32)
--- NOTE | 2019-09-04 09:48 | P.PN ---
Subjective Progress Note Date: 09/04/19 Principal diagnosis: Resume over 19 infection, coronary artery disease, cardiomyopathy with chronic systolic failure status post AICD, chronic persistent asthma of severe category, COPD, hypertension hypertensive cardiovascular disease, dyslipidemia, acute renal failure, smoking and nicotine use, chronic pain syndrome, generalized anxiety disorder 09/04/2019, patient seen eval examined during the rounds her respiratory status fairly stable on remains on 6 L nasal cannula oxygen saturation 96-98% breathing comfortably is still of intermittent cough and congestion with respiratory status improved, one of the blood culture came back positive for gram-positive cocci staph final ID is pending, ID service has evaluated the patient patient is on cefazolin, source is not clear, covid 19 is negative 09/01/2019, patient seen and evaluated examined during the rounds labs reviewed medications reviewed, patient has been doing well denies any chest pain breathing comfortably intermittent occasional dry cough is present no fever is present, patient is afebrile with temperature of 98, blood pressure is marginal but stable, patient on 6 L oxygen 100%, last set of blood pressure was 82/47 heart rate is 76, last chest x-ray stable with elevated right hemidiaphragm, no acute infiltrate identified chronic COPD-like changes Objective - Vital Signs Vital signs: Vital Signs Temp 98 F 09/04/19 04:00 Pulse 78 09/04/19 04:00 Resp 18 09/04/19 04:00 BP 108/60 09/04/19 04:00 Pulse Ox 97 09/04/19 04:00 Intake & Output 09/03/19 09/04/19 09/04/19 18:59 06:59 18:59 Intake Total 1200 210 437 Output Total 2600 1999 Balance -1400 -1790 437 Weight 94.2 kg 95 kg Intake: Oral 1200 210 437 Output: Urine 2600 1999 Other: Voiding Method Indwelling Catheter Indwelling Catheter # Voids 2 - Exam HEENT: Head is atraumatic, normal cephalic, pupils were equal round reactive to light and accommodation, extraocular muscle movement were intact, mucous membranes of mouth is dry. Neck: Supple, no JVP. Chest: Decreased breath sound at bases, few rhonchi, minimal expiratory wheezes, minimal intercostal retraction, there is an AICD located in the left upper precordium. Heart: First heart sound is depressed, second heart sounds normal, there is systolic ejection murmur 2/6 located in the left sternal border, there is AICD in the left upper precordium Abdomen: Soft, nontender, nondistended, positive bowel sounds. Extremities: Trace edema, no calf tenderness, dorsalis pedis +1 bilaterally. Neurologic examination: Patient is awake alert and oriented 3, cranial nerves II-12 appear grossly intact, muscle power 4 out of 5 in upper and lower extremity disease bilaterally. - Labs CBC & Chem 7: 09/04/19 07:04 09/04/19 07:04 Labs: Abnormal Lab Results - Last 24 Hours (Table) 09/03/19 09/03/19 09/03/19 Range/Units 05:43 11:37 16:42 RBC (4.30-5.90) m/uL Hgb (13.0-17.5) gm/dL Hct (39.0-53.0) % Sodium (137-145) mmol/L Chloride (98-107) mmol/L Carbon Dioxide (22-30) mmol/L BUN (9-20) mg/dL Creatinine (0.66-1.25) mg/dL Glucose (74-99) mg/dL POC Glucose (mg/dL) 117 H 178 H (75-99) mg/dL Hemoglobin A1c 8.0 H (4.0-6.0) % Total Protein (6.3-8.2) g/dL 09/03/19 09/04/19 09/04/19 Range/Units 20:37 06:22 07:04 RBC (4.30-5.90) m/uL Hgb (13.0-17.5) gm/dL Hct (39.0-53.0) % Sodium 134 L (137-145) mmol/L Chloride 92 L (98-107) mmol/L Carbon Dioxide 38 H (22-30) mmol/L BUN 63 H (9-20) mg/dL Creatinine 1.29 H (0.66-1.25) mg/dL Glucose 116 H (74-99) mg/dL POC Glucose (mg/dL) 149 H 159 H (75-99) mg/dL Hemoglobin A1c (4.0-6.0) % Total Protein 5.8 L (6.3-8.2) g/dL 09/04/19 Range/Units 07:04 RBC 2.99 L (4.30-5.90) m/uL Hgb 9.5 L (13.0-17.5) gm/dL Hct 28.9 L (39.0-53.0) % Sodium (137-145) mmol/L Chloride (98-107) mmol/L Carbon Dioxide (22-30) mmol/L BUN (9-20) mg/dL Creatinine (0.66-1.25) mg/dL Glucose (74-99) mg/dL POC Glucose (mg/dL) (75-99) mg/dL Hemoglobin A1c (4.0-6.0) % Total Protein (6.3-8.2) g/dL Assessment and Plan Assessment: Bacteremia with MSSA source not clear Acute on chronic hypoxic respiratory failure due to likely component of heart failure versus COPD, patient however back on baseline oxygen 6 L is being continued on home medications Coronary artery disease Severe COPD prednisone and oxygen dependent Acute exacerbation of CHF/acute on chronic systolic heart failure Testing negative covid-19 infection Acute renal failure due to hypertension gently being rehydrated and renal function monitored symptoms have improved after Whitlock's catheter Dyslipidemia Chronic tobacco use Chronic persistent asthma of severe category with overlap of severe COPD Plan: Continue ceftezole and further workup and evaluation by infectious disease services pending Repeat blood culture and echocardiogram pending Overall plan is continue supplemental oxygen with 6 L which is his baseline, Continue bronchodilator Increase activity as tolerated Continue supportive care with bronchodilator and maintenance dose of prednisone Time with Patient: Greater than 30
--- NOTE | 2019-09-04 10:02 | P.PN ---
Subjective Patient is seen in follow-up for acute kidney injury. Renal function is stable. He is maintained on oral Lasix. Nonoliguric. Edema improving. No complaints at this time. Vital signs are stable. General: The patient appeared well nourished and normally developed. HEENT: Head exam is unremarkable. Neck is without jugular venous distension. LUNGS: Lungs are clear to auscultation and percussion. Breath sounds decreased. HEART: Rate and Rhythm are regular. First and second heart sounds normal. No murmurs, rubs or gallops. ABDOMEN: Soft. No tenderness. EXTREMITITES: 1+ edema. Objective - Vital Signs Vital signs: Vital Signs Temp 98 F 09/04/19 04:00 Pulse 78 09/04/19 04:00 Resp 18 09/04/19 04:00 BP 108/60 09/04/19 04:00 Pulse Ox 97 09/04/19 04:00 Intake & Output 09/03/19 09/04/19 09/04/19 18:59 06:59 18:59 Intake Total 1200 210 437 Output Total 2600 2000 1000 Balance -1400 -1790 -563 Weight 94.2 kg 95 kg Intake: Oral 1200 210 437 Output: Urine 2600 2000 1000 Other: Voiding Method Indwelling Catheter Indwelling Catheter # Voids 2 - Labs CBC & Chem 7: 09/04/19 07:04 09/04/19 07:04 Labs: Abnormal Lab Results - Last 24 Hours (Table) 09/03/19 09/03/19 09/03/19 Range/Units 05:43 11:37 16:42 RBC (4.30-5.90) m/uL Hgb (13.0-17.5) gm/dL Hct (39.0-53.0) % Sodium (137-145) mmol/L Chloride (98-107) mmol/L Carbon Dioxide (22-30) mmol/L BUN (9-20) mg/dL Creatinine (0.66-1.25) mg/dL Glucose (74-99) mg/dL POC Glucose (mg/dL) 117 H 178 H (75-99) mg/dL Hemoglobin A1c 8.0 H (4.0-6.0) % Total Protein (6.3-8.2) g/dL 09/03/19 09/04/19 09/04/19 Range/Units 20:37 06:22 07:04 RBC (4.30-5.90) m/uL Hgb (13.0-17.5) gm/dL Hct (39.0-53.0) % Sodium 134 L (137-145) mmol/L Chloride 92 L (98-107) mmol/L Carbon Dioxide 38 H (22-30) mmol/L BUN 63 H (9-20) mg/dL Creatinine 1.29 H (0.66-1.25) mg/dL Glucose 116 H (74-99) mg/dL POC Glucose (mg/dL) 149 H 159 H (75-99) mg/dL Hemoglobin A1c (4.0-6.0) % Total Protein 5.8 L (6.3-8.2) g/dL 09/04/19 Range/Units 07:04 RBC 2.99 L (4.30-5.90) m/uL Hgb 9.5 L (13.0-17.5) gm/dL Hct 28.9 L (39.0-53.0) % Sodium (137-145) mmol/L Chloride (98-107) mmol/L Carbon Dioxide (22-30) mmol/L BUN (9-20) mg/dL Creatinine (0.66-1.25) mg/dL Glucose (74-99) mg/dL POC Glucose (mg/dL) (75-99) mg/dL Hemoglobin A1c (4.0-6.0) % Total Protein (6.3-8.2) g/dL Assessment and Plan Plan: Assessment: 1. Acute kidney injury mostly prerenal secondary to cardiorenal syndrome. Renal function better. Creatinine 1.29 today. No proteinuria on UA. 2. Volume overload. Improving with diuresis. 3. Acute on chronic systolic CHF with ejection fraction less than 20% with mild to moderate mitral regurgitation. 4. Hypotension related to underlying cardiac status. Stable. 5. Hypervolemic hyponatremia. Better. 6. Hyperkalemia secondary to acute kidney injury and entresto. Blood sugars also slightly on the higher side. Better. 7. Staph aureus bacteremia. Maintained on antibiotics. Plan: Maintain Lasix 80 mg orally twice daily. Discontinue metolazone. Tight blood sugar control. Hold Entresto systolic blood pressure less than 90. Continue to monitor renal function and urine output. I advised them to follow low-salt diet and 50 oz fluid restriction per day. I also advised him to weigh himself daily and to call our office if gains more than 2-3 pounds or has worsening of edema.
--- NOTE | 2019-09-04 11:36 | P.PN ---
Subjective Progress Note Date: 09/04/19 This is a 58-year-old male patient of Drs. Bautista, Jing and Farideh with past medical history of coronary artery disease and status post coronary artery bypass grafting and previous angioplasty and stenting so that, heart catheterization in September 2018 revealed severe stenosis of the LAD with occluded first obtuse marginal branch, chronically occluded mid right coronary artery, mild to moderate disease of the proximal left circumflex, patent JACKSON to LAD, patent saphenous vein graft to the diagonal branch and to the right PDA, severely impaired left ventricular systolic function, ischemic cardiomyopathy EF of 20% status post AICD, chronic systolic heart failure as well as chronic obstructive pulmonary disease, chronic hypoxic respiratory failure on home O2, hypertension, hyperlipidemia, chronic pain syndrome on methadone, tobacco use and dependencequit September 2018, patient presented to the emergency department at [facility] with increased shortness breath associated with increased swelling in both lower extremities and he has been checking his weight and regular basis and he noticed a sudden increase in his weight over the last 48 hours he was not catching his breath without any chest pain patient troponin was slightly elevated he was admitted to the hospital for non-ST elevation [place] however because of the concern of requiring more oxygen along with the cough patient was admitted to the hospital under the droplet precautions influenza A and B will be obtained as well as COVID-19 will be obtained, pulmonary and cardiology consult was obtained. 08/30: Patient sitting up in bed, appears a bit drowsy in the morning he put his oxygen up to 8 L per nasal cannula on his own and he stated that he is having trouble with that he discuss that with his market risk analyst in the past, I advised him to cut down the oxygen level to keep saturation between 90-93% at this point but he refused, he would be seen in consultation by nephrology due to his acute kidney injury as his creatinine jumped to 0.07 from 1.67, his diuretics initially was stopped then he was restarted BiPAP nephrology at 80 mg IV push every 12 hours, we discontinued his Entresto and spironolactone, monitor the patient blood pressure very closely discontinued. As well, keep his blood pressure greater than 120 systolic at all the time. We'll repeat his labs in the morning. 08/31: Patient has been afebrile, heart rate 76, blood pressure 82/47, a flex 100% on 6 L nasal cannula. Repeat blood work reveals WBC 9.8, hemoglobin 9.1, platelet count 145. Sodium 132, potassium 4.9, chloride 89, CO2 38, BUN 79, creatinine 1.63. Blood sugar 244. Covid 19 remains pending. Blood culture is showing Staphylococcus aureus. Patient is seen today resting in bed. Appears to be comfortable at rest. He continues to have lower extremity edema. He is diuresing well with good urine output. Nephrology is recommended Lasix 80 mg twice daily. 09/01: COVID-19 testing came back negative. Droplet isolation discontinued. Patient is afebrile, heart rate 82. Blood pressure currently 100/60, pulse ox 94% on 6 L nasal cannula. Repeat blood work reveals sodium 132, potassium 5.4, chloride 91, CO2 30, BUN 89, creatinine 1.75. Dr. Magana is planning for another day of Lasix [address] MYRA Marroquin recommends continuing the current medications. Patient has had low blood pressure during the night and yesterday. Entresto will be discontinued. His Whitlock catheter and with good urine output. He continues to have lower extremity edema. He denies having any blood in the stools, no gastric reflux. Because blood sugars have been elevated, hemoglobin A1c will be checked. NovoLog scale added. 09/02: Patient noted to have positive blood culture with MSSA. Rocephin will be started and consult with Dr. Ochoa. Echocardiogram will be ordered to assess for vegetation. Consult added for registered dietitian regarding heart failure diet and weight loss. Patient to be on a low-salt diet and 50 ounce fluid restriction per day. Cardiology was added in Zaroxolyn and IV Lasix changed to oral 80 mg twice daily. 09/03: The patient was seen by Dr. Magana this morning and metolazone has been discontinued. Patient continued on Lasix 80 mg oral twice daily. Patient is diuresing well with mildly improved lower extremity edema. Whitlock cath remains in place. He is on fluid restriction of 15 ounces. ULICES hose will be ordered. He denies having any fever or chills, no myalgias. He has had a bowel movement this morning which was normal, no blood or tightness. Patient states he slept well last night. Chest x-ray this morning reveals redemonstration of right hemidiaphragm elevation could relate to paralysis. Strand-like bibasilar atelectasis. Echocardiogram reveals EF of 20-25%, moderate concentric left ventricular hypertrophy with severe global hypokinesia of the LV. Moderate mitral regurgitation, mild tricuspid regurgitation, no pulmonary hypertension. Cannot rule out vegetation. Patient has been seen by Dr. Ochoa and antibiotics changed to Kefzol and recommends JOVANA. Discussed with cardiology and they will plan to schedule the patient. Repeat blood culture has been obtained. Objective - Vital Signs Vital signs: Vital Signs Temp 98 F 09/04/19 04:00 Pulse 78 09/04/19 04:00 Resp 18 09/04/19 04:00 BP 108/60 09/04/19 04:00 Pulse Ox 97 09/04/19 04:00 Intake & Output 09/03/19 09/04/19 09/04/19 18:59 06:59 18:59 Intake Total 1200 210 437 Output Total 2600 1999 1000 Balance -1400 -1790 -563 Weight 94.2 kg 95 kg Intake: Oral 1200 210 437 Output: Urine 2600 1999 1000 Other: Voiding Method Indwelling Catheter Indwelling Catheter # Voids 2 - Exam Review of Systems Constitutional: Denies chills, denies fever, Denies lethargy, Denies weakness Eyes: denies blurred vision, denies bulging eye Ears, nose, mouth and throat: Denies dental pain, Denies dysphagia, Denies neck lump, Denies sore throat Cardiovascular: Reports decreased exercise tolerance, Reports dyspnea on exertion, Reports shortness of breath, Denies chest pain, Denies lightheadedness, Denies rapid heart beat, Denies syncope Respiratory: Reports cough, denies home oxygen, Denies congestion, Denies cough with sputum, Denies sleep apnea, Denies snoring, Denies wheezing Gastrointestinal: Denies abdominal pain, Denies bloating, Denies BRBPR, Denies excessive gas, Denies heartburn, Denies melena, Denies nausea, Denies vomiting Genitourinary: Reports nocturia, Denies dysuria, Whitlock in place Musculoskeletal: Denies myalgias Musculoskeletal: absent: ankle pain, ankle stiffness, ankle swelling, elbow pain, elbow stiffness, elbow swelling, foot pain, foot stiffness, foot swelling, hand pain, hand stiffness, hand swelling, hip pain, hip stiffness, hip swelling, knee pain, knee stiffness, knee swelling, shoulder pain, shoulder stiffness, shoulder swelling, wrist pain, wrist stiffness, wrist swelling Integumentary: Denies pruritus, Denies rash Neurological: Denies numbness, Denies weakness Psychiatric: Denies anxiety, Denies depression Endocrine: Denies fatigue, Denies weight change Physical Examination: GEN: This is a 58-year-old male. He is resting in bed and appears to be comfortable. No respiratory distress noted at rest. HEENT: Head is atraumatic, normal cephalic, pupils were equal round reactive to light and accommodation, extraocular muscle movement were intact, mucous membranes of mouth is dry. Neck: Supple, no JVP. Chest: Decreased breath sound at bases, few rhonchi, minimal expiratory wheezes, minimal intercostal retraction, there is an AICD located in the left upper precordium. Heart: First heart sound is depressed, second heart sounds normal, there is systolic ejection murmur 2/6 located in the left sternal border, there is AICD in the left upper precordium Abdomen: Soft, nontender, nondistended, positive bowel sounds. Whitlock catheter draining clear anayeli urine. Extremities: Trace edema, no calf tenderness, dorsalis pedis +1 bilaterally. Neurologic examination: Patient is awake alert and oriented 3, cranial nerves II-12 appear grossly intact, muscle power 4 out of 5 in upper and lower extremity disease bilaterally. - Labs CBC & Chem 7: 09/04/19 07:04 09/04/19 07:04 Labs: Abnormal Lab Results - Last 24 Hours (Table) 09/03/19 09/03/19 09/03/19 Range/Units 05:43 11:37 16:42 RBC (4.30-5.90) m/uL Hgb (13.0-17.5) gm/dL Hct (39.0-53.0) % Sodium (137-145) mmol/L Chloride (98-107) mmol/L Carbon Dioxide (22-30) mmol/L BUN (9-20) mg/dL Creatinine (0.66-1.25) mg/dL Glucose (74-99) mg/dL POC Glucose (mg/dL) 117 H 178 H (75-99) mg/dL Hemoglobin A1c 8.0 H (4.0-6.0) % Total Protein (6.3-8.2) g/dL 09/03/19 09/04/19 09/04/19 Range/Units 20:37 06:22 07:04 RBC (4.30-5.90) m/uL Hgb (13.0-17.5) gm/dL Hct (39.0-53.0) % Sodium 134 L (137-145) mmol/L Chloride 92 L (98-107) mmol/L Carbon Dioxide 38 H (22-30) mmol/L BUN 63 H (9-20) mg/dL Creatinine 1.29 H (0.66-1.25) mg/dL Glucose 116 H (74-99) mg/dL POC Glucose (mg/dL) 149 H 159 H (75-99) mg/dL Hemoglobin A1c (4.0-6.0) % Total Protein 5.8 L (6.3-8.2) g/dL 09/04/19 Range/Units 07:04 RBC 2.99 L (4.30-5.90) m/uL Hgb 9.5 L (13.0-17.5) gm/dL Hct 28.9 L (39.0-53.0) % Sodium (137-145) mmol/L Chloride (98-107) mmol/L Carbon Dioxide (22-30) mmol/L BUN (9-20) mg/dL Creatinine (0.66-1.25) mg/dL Glucose (74-99) mg/dL POC Glucose (mg/dL) (75-99) mg/dL Hemoglobin A1c (4.0-6.0) % Total Protein (6.3-8.2) g/dL Assessment and Plan Plan: 1. Acute on chronic hypoxemic respiratory failure due to acute on chronic systolic heart failure, COPD. Acute coronary syndrome ruled out by cardiology. Continue Lasix 80 mg oral twice daily, Zaroxolyn 2.5 mg daily. Continue Lipitor 40 mg orally once every day, Coreg 3.125 mg orally twice every day, subcutaneous heparin. Pulmonary and cardiology consults appreciated. 2. Coronary artery disease status post coronary artery bypass graft with PCI and ischemic cardiomyopathy post AICD. Discontinue spironolactone. Discontinue Entresto. Continue Lasix at 80 mg IV every 12 hours for another day. Monitor the patient input and output and daily weight bladder scan will be done to check for postvoid retention, if the post void residual greater than [address] and per 3. COPD without exacerbation. Continue DuoNeb 3 mg nebulization 4 times every day, continue prednisone 20 mg orally twice a day, continue Advair Diskus 250/50 one puff inhalation twice every day. 4. Hypertension and hypertensive cardiovascular disease. Continue patient on carvedilol 3.125 mg orally twice every day. 5. Hyperlipidemia. Continue Lipitor 40 mg orally once every day. 6. Acute kidney injury secondary to diuretics as well as low blood flow to the kidney. Hold Spironolactone. 7. History of tobacco use and dependence. Patient is not smoking at this point. 8. Chronic pain syndrome. Continue patient on methadone. 9. DVT prophylaxis. Continue heparin subcu. 10. GI prophylaxis. Pepcid 20 mg orally once every day. 11. MSSA bacteremia. Consult with Dr. Don sharma. Patient now on Kefzol 2 g every 8 hours. Repeat blood culture ordered. Discussed with cardiology to perform JOVANA. Full code. Discharge plan: home possibly in the next 24 hours. Impression and plan of care have been directed as dictated by the signing physi cian. Isabelle Andersen nurse practitioner acting as scribe for signing physician.
[2019-09-04 20:22] LABS: Glucose,Whole Blood 179 mg/dL (75-99)
[2019-09-04] MEDS: MONTELUKAST 10 MG TAB PO SCH (21:02)
--- NOTE | 2019-09-04 23:57 | PN ---
PROGRESS NOTE DATE OF SERVICE: 09/04/2019 REASON FOR FOLLOWUP: MSSA bacteremia with question of endocarditis INTERVAL HISTORY: The patient is currently afebrile, has been breathing comfortably. He denies having any chest pain or shortness of breath. Occasional cough. No nausea, no vomiting. No abdominal pain. No diarrhea. PHYSICAL EXAMINATION: Blood pressure 136/69 with a pulse of 85, temperature 97.8. He is 98% on 6 L nasal cannula. General description is a middle-aged male lying in bed in no distress. RESPIRATORY SYSTEM: Unlabored breathing with decreased breath sounds at the base. No wheeze. HEART: S1, S2. Regular rate and rhythm. ABDOMEN: Soft. No tenderness. LABS: Hemoglobin 9.5, white count 8.9, BUN of 63, creatinine is 1.29. Blood culture repeat has been negative so far. DIAGNOSTIC IMPRESSION AND PLAN: Patient with MSSA bacteremia. Chest x-ray has been negative for any consolidation. The patient presented to hospital with increased shortness of breath, lower extremity swelling. May benefit from a JOVANA to rule out endocarditis, as no other obvious clinical focus of infection. Continue cefazolin. Monitor clinical course closely. MMODL / IJN: [id number] / MTDD
[2019-09-05] MEDS: CARVEDILOL 3.125 MG TAB PO SCH ×2 (05:42→17:30)
[2019-09-05] MEDS: INSULIN ASPART (NovoLOG) 100 UNIT/ML VIAL SQ SCH ×4 (05:42→20:50)
[2019-09-05] MEDS: SYMBICORT 80-4.5 MCG INHALER (MHU) INHALATION SCH ×2 (07:35→19:41)
[2019-09-05] MEDS ORDERED: fentaNYL (PF) 50 MCG/ML 2 ML AMP ONE (07:56)
[2019-09-05] MEDS ORDERED: ONDANSETRON 4 MG/2 ML VIAL IVP PRN (07:58)
[2019-09-05 08:01] LABS: Calcium 9.5 mg/dL (8.4-10.2); Magnesium 1.9 mg/dL (1.6-2.3); Potassium 4.6 mmol/L (3.5-5.1)
--- NOTE | 2019-09-05 09:49 | PN ---
PROGRESS NOTE Mr. Goodman has ischemic cardiomyopathy, biventricular ICD has developed Staph aureus positive blood cultures. He is doing better today with the diuretics. Given his positive blood cultures and device, he is going for a transesophageal echo today by Dr. Ch. His vitals are stable. Breathing is easier. Urine output is better but complains of feeling somewhat fatigued. JVD 1 cm. No carotid bruit. S1, S2 heard normally, short systolic murmur noted. Lungs reveal improved air entry. Abdomen is soft. Lower extremity edema has improved. Plan is to continue current medications, transesophageal echo. Plan for discharge in the next 24 hours. MMODL / IJN: [id number] /
--- NOTE | 2019-09-05 09:57 | P.PN ---
Subjective Patient is seen in follow-up for acute kidney injury. Renal function is little worse today due to diuresis. He is maintained on oral Lasix. Nonoliguric. Edema improving. JOVANA not done this AM as he got anxious/dyspneic. Vital signs are stable. General: The patient appeared well nourished and normally developed. HEENT: Head exam is unremarkable. Neck is without jugular venous distension. LUNGS: Lungs are clear to auscultation and percussion. Breath sounds decreased. HEART: Rate and Rhythm are regular. First and second heart sounds normal. No murmurs, rubs or gallops. ABDOMEN: Soft. No tenderness. EXTREMITITES: 1+ edema. Objective - Vital Signs Vital signs: Vital Signs Temp 98.7 F 09/05/19 08:00 Pulse 100 09/05/19 08:00 Resp 22 09/05/19 08:00 BP 133/84 09/05/19 08:00 Pulse Ox 99 09/05/19 08:00 Intake & Output 09/04/19 09/05/19 09/05/19 18:59 06:59 18:59 Intake Total 1337 Output Total 1000 3900 Balance 337 -3900 Weight 99.2 kg Intake: Oral 1337 Output: Urine 1000 3900 Other: Voiding Method Indwelling Catheter Indwelling Catheter Indwelling Catheter - Labs CBC & Chem 7: 09/04/19 07:04 09/05/19 06:08 Labs: Abnormal Lab Results - Last 24 Hours (Table) 09/04/19 09/05/19 Range/Units 20:20 06:08 Sodium 133 L (137-145) mmol/L Chloride 85 L (98-107) mmol/L Carbon Dioxide 35 H (22-30) mmol/L BUN 62 H (9-20) mg/dL Creatinine 1.56 H (0.66-1.25) mg/dL Glucose 115 H (74-99) mg/dL POC Glucose (mg/dL) 179 H (75-99) mg/dL Microbiology - Last 24 Hours (Table) 09/04/19 07:04 Blood Culture - Preliminary Blood No Growth after 24 hours 09/03/19 10:49 Blood Culture - Preliminary Blood No Growth after 24 hours Assessment and Plan Plan: Assessment: 1. Acute kidney injury mostly prerenal secondary to cardiorenal syndrome. Renal function little worse due to diuresis. Creatinine 1.56 today. No proteinuria on UA. 2. Volume overload. Improving with diuresis. 3. Acute on chronic systolic CHF with ejection fraction less than 20% with mild to moderate mitral regurgitation. 4. Hypotension related to underlying cardiac status. Stable. 5. Hypervolemic hyponatremia. Better. 6. Hyperkalemia secondary to acute kidney injury and entresto. Blood sugars also slightly on the higher side. Better. 7. Staph aureus bacteremia. Maintained on antibiotics. JOVANA not done as he got anxious. Plan: Maintain Lasix 80 mg orally twice daily. Discontinued metolazone. Tight blood sugar control. Hold Entresto systolic blood pressure less than 90. Continue to monitor renal function and urine output. I advised them to follow low-salt diet and 50 oz fluid restriction per day. I also advised him to weigh himself daily and to call our office if gains more than 2-3 pounds or has worsening of edema. Repeat labs in AM.
[2019-09-05] MEDS: HEPARIN SODIUM,PORCINE 5,000 UNIT/ML 1 ML VIAL SQ SCH ×3 (09:59→23:57)
[2019-09-05] MEDS: METHADONE 5 MG TAB PO SCH (10:00)
[2019-09-05] MEDS: FUROSEMIDE 80 MG TAB PO SCH ×2 (10:00→15:14)
[2019-09-05] MEDS: EZETIMIBE 10 MG TAB PO SCH (10:01)
[2019-09-05] MEDS: ATORVASTATIN 40 MG TAB PO SCH (10:01)
[2019-09-05] MEDS: MULTIVITAMINS, THERA 1 EACH TAB PO SCH (10:01)
[2019-09-05] MEDS: METOLAZONE 2.5 MG TAB PO SCH (10:01)
[2019-09-05] MEDS: METHADONE 10 MG TAB PO SCH (10:01)
[2019-09-05] MEDS: predniSONE 10 MG TAB PO SCH ×2 (10:01→20:47)
[2019-09-05] MEDS: SODIUM CHLORIDE 0.65% NASAL SPRAY 44 ML BTL NASAL SCH (10:18)
[2019-09-05 11:42] LABS: Glucose,Whole Blood 245 mg/dL (75-99)
--- NOTE | 2019-09-05 12:08 | P.PN ---
Subjective Progress Note Date: 09/05/19 This is a 58-year-old male patient of Drs. Bautista, Jing and Farideh with past medical history of coronary artery disease and status post coronary artery bypass grafting and previous angioplasty and stenting so that, heart catheterization in September 2018 revealed severe stenosis of the LAD with occluded first obtuse marginal branch, chronically occluded mid right coronary artery, mild to moderate disease of the proximal left circumflex, patent JACKSON to LAD, patent saphenous vein graft to the diagonal branch and to the right PDA, severely impaired left ventricular systolic function, ischemic cardiomyopathy EF of 20% status post AICD, chronic systolic heart failure as well as chronic obstructive pulmonary disease, chronic hypoxic respiratory failure on home O2, hypertension, hyperlipidemia, chronic pain syndrome on methadone, tobacco use and dependencequit September 2018, patient presented to the emergency department at [facility] with increased shortness breath associated with increased swelling in both lower extremities and he has been checking his weight and regular basis and he noticed a sudden increase in his weight over the last 48 hours he was not catching his breath without any chest pain patient troponin was slightly elevated he was admitted to the hospital for non-ST elevation [place] however because of the concern of requiring more oxygen along with the cough patient was admitted to the hospital under the droplet precautions influenza A and B will be obtained as well as COVID-19 will be obtained, pulmonary and cardiology consult was obtained. 08/30: Patient sitting up in bed, appears a bit drowsy in the morning he put his oxygen up to 8 L per nasal cannula on his own and he stated that he is having trouble with that he discuss that with his burner shaft in the past, I advised him to cut down the oxygen level to keep saturation between 90-93% at this point but he refused, he would be seen in consultation by nephrology due to his acute kidney injury as his creatinine jumped to 0.07 from 1.67, his diuretics initially was stopped then he was restarted BiPAP nephrology at 80 mg IV push every 12 hours, we discontinued his Entresto and spironolactone, monitor the patient blood pressure very closely discontinued. As well, keep his blood pressure greater than 120 systolic at all the time. We'll repeat his labs in the morning. 08/31: Patient has been afebrile, heart rate 76, blood pressure 82/47, a flex 100% on 6 L nasal cannula. Repeat blood work reveals WBC 9.8, hemoglobin 9.1, platelet count 145. Sodium 132, potassium 4.9, chloride 89, CO2 38, BUN 79, creatinine 1.63. Blood sugar 244. Covid 19 remains pending. Blood culture is showing Staphylococcus aureus. Patient is seen today resting in bed. Appears to be comfortable at rest. He continues to have lower extremity edema. He is diuresing well with good urine output. Nephrology is recommended Lasix 80 mg twice daily. 09/01: COVID-19 testing came back negative. Droplet isolation discontinued. Patient is afebrile, heart rate 82. Blood pressure currently 100/60, pulse ox 94% on 6 L nasal cannula. Repeat blood work reveals sodium 132, potassium 5.4, chloride 91, CO2 30, BUN 89, creatinine 1[address]75[address] Magana is planning for another day of Lasix [address] MYRA Marroquin recommends continuing the current medications. Patient has had low blood pressure during the night and yesterday. Entresto will be discontinued. His Whitlock catheter and with good urine output. He continues to have lower extremity edema. He denies having any blood in the stools, no gastric reflux. Because blood sugars have been elevated, hemoglobin A1c will be checked. NovoLog scale added. 09/02: Patient noted to have positive blood culture with MSSA. Rocephin will be started and consult with Dr. Ochoa. Echocardiogram will be ordered to assess for vegetation. Consult added for registered dietitian regarding heart failure diet and weight loss. Patient to be on a low-salt diet and 50 ounce fluid restriction per day. Cardiology was added in Zaroxolyn and IV Lasix changed to oral 80 mg twice daily. 09/03: The patient was seen by Dr. Magana this morning and metolazone has been discontinued. Patient continued on Lasix 80 mg oral twice daily. Patient is diuresing well with mildly improved lower extremity edema. Whitlock cath remains in place. He is on fluid restriction of 15 ounces. ULICES hose will be ordered. He denies having any fever or chills, no myalgias. He has had a bowel movement this morning which was normal, no blood or tightness. Patient states he slept well last night. Chest x-ray this morning reveals redemonstration of right hemidiaphragm elevation could relate to paralysis. Strand-like bibasilar atelectasis. Echocardiogram reveals EF of 20-25%, moderate concentric left ventricular hypertrophy with severe global hypokinesia of the LV. Moderate mitral regurgitation, mild tricuspid regurgitation, no pulmonary hypertension. Cannot rule out vegetation. Patient has been seen by Dr. Ochoa and antibiotics changed to Kefzol and recommends JOVANA. Discussed with cardiology and they will plan to schedule the patient. Repeat blood culture has been obtained. 09/04: Prior to JOVANA, patient was complaining of nausea for which Zofran was given. Patient went for the JOVANA and developed significant shortness of breath and was anxious and JOVANA was postponed. This will most likely be rescheduled for Sunday. Dr. Magana is recommended continuing Lasix 80 mg twice daily. Repeat lab work reveals sodium 133, potassium 4.6, chloride 85, CO2 35, BUN 62, creatinine 1.56. Blood sugars running between 115 and 245. Repeat blood cultures showing no growth at 24 hours from both September 02 and September 03 Objective - Vital Signs Vital signs: Vital Signs Temp 98.7 F 09/05/19 08:00 Pulse 100 09/05/19 08:00 Resp 22 09/05/19 08:00 BP 133/84 09/05/19 08:00 Pulse Ox 99 09/05/19 08:00 Intake & Output 09/04/19 09/05/19 09/05/19 18:59 06:59 18:59 Intake Total 1337 Output Total 1000 3900 Balance 337 -3900 Weight 99.2 kg Intake: Oral 1337 Output: Urine 1000 3900 Other: Voiding Method Indwelling Catheter Indwelling Catheter Indwelling Catheter - Exam Review of Systems Constitutional: Denies chills, denies fever, Denies lethargy, Denies weakness Eyes: denies blurred vision, denies bulging eye Ears, nose, mouth and throat: Denies dental pain, Denies dysphagia, Denies neck lump, Denies sore throat Cardiovascular: Reports decreased exercise tolerance, Reports dyspnea on exertion, Reports shortness of breath, Denies chest pain, Denies lightheadedness, Denies rapid heart beat, Denies syncope Respiratory: Reports cough, denies home oxygen, Denies congestion, Denies cough with sputum, Denies sleep apnea, Denies snoring, Denies wheezing, reports shortness of breath Gastrointestinal: Denies abdominal pain, Denies bloating, Denies BRBPR, Denies excessive gas, Denies heartburn, Denies melena, reports nausea, Denies vomiting Genitourinary: Reports nocturia, Denies dysuria, Whitlock in place Musculoskeletal: Denies myalgias Musculoskeletal: absent: ankle pain, ankle stiffness, ankle swelling, elbow pain, elbow stiffness, elbow swelling, foot pain, foot stiffness, foot swelling, hand pain, hand stiffness, hand swelling, hip pain, hip stiffness, hip swelling, knee pain, knee stiffness, knee swelling, shoulder pain, shoulder stiffness, shoulder swelling, wrist pain, wrist stiffness, wrist swelling Integumentary: Denies pruritus, Denies rash Neurological: Denies numbness, Denies weakness Psychiatric: Reports anxiety, Denies depression Endocrine: Denies fatigue, Denies weight change Physical Examination: GEN: This is a 58-year-old male. He is resting in bed and appears to be comfortable. No respiratory distress noted at rest. HEENT: Head is atraumatic, normal cephalic, pupils were equal round reactive to light and accommodation, extraocular muscle movement were intact, mucous membranes of mouth is dry. Neck: Supple, no JVP. Chest: Decreased breath sound at bases, few rhonchi, minimal expiratory wheezes, minimal intercostal retraction, there is an AICD located in the left upper precordium. Heart: First heart sound is depressed, second heart sounds normal, there is systolic ejection murmur 2/6 located in the left sternal border, there is AICD in the left upper precordium Abdomen: Soft, nontender, nondistended, positive bowel sounds. Whitlock catheter draining clear anayeli urine. Extremities: Trace edema, no calf tenderness, dorsalis pedis +1 bilaterally. Neurologic examination: Patient is awake alert and oriented 3, cranial nerves II-12 appear grossly intact. - Labs CBC & Chem 7: 09/04/19 07:04 09/05/19 06:08 Labs: Abnormal Lab Results - Last 24 Hours (Table) 09/04/19 09/05/19 Range/Units 20:20 06:08 Sodium 133 L (137-145) mmol/L Chloride 85 L (98-107) mmol/L Carbon Dioxide 35 H (22-30) mmol/L BUN 62 H (9-20) mg/dL Creatinine 1.56 H (0.66-1.25) mg/dL Glucose 115 H (74-99) mg/dL POC Glucose (mg/dL) 179 H (75-99) mg/dL Microbiology - Last 24 Hours (Table) 09/04/19 07:04 Blood Culture - Preliminary Blood No Growth after 24 hours 09/03/19 10:49 Blood Culture - Preliminary Blood No Growth after 24 hours Assessment and Plan Plan: 1. Acute on chronic hypoxemic respiratory failure due to acute on chronic systolic heart failure, COPD. Acute coronary syndrome ruled out by cardiology. Continue Lasix 80 mg oral twice daily, Zaroxolyn discontinued. Continue Lipitor 40 mg orally once every day, Coreg 3.125 mg orally twice every day, subcutaneous heparin. Pulmonary and cardiology consults appreciated. 2. Coronary artery disease status post coronary artery bypass graft with PCI and ischemic cardiomyopathy post AICD. Discontinue spironolactone. Discontinue Entresto. Continue Lasix at 80 mg po every 12 hours. Monitor the patient input and output and daily weight bladder scan will be done to check for postvoid retention, if the post void residual greater than [address] 3. COPD without exacerbation. Continue DuoNeb 3 mg nebulization 4 times every day, continue prednisone 20 mg orally twice a day, continue Advair Diskus 250/50 one puff inhalation twice every day. 4. Hypertension and hypertensive cardiovascular disease. Continue patient on carvedilol 3.125 mg orally twice every day. 5. Hyperlipidemia. Continue Lipitor 40 mg orally once every day. 6. Acute kidney injury secondary to diuretics as well as low blood flow to the kidney. Hold Spironolactone. 7. History of tobacco use and dependence. Patient is not smoking at this point. 8. Chronic pain syndrome. Continue patient on methadone. 9. DVT prophylaxis. Continue heparin subcu. 10. GI prophylaxis. Pepcid 20 mg orally once every day. 11. MSSA bacteremia. Consult with Dr. Don sharma. Patient now on Kefzol 2 g every 8 hours. Repeat blood culture showing no growth. JOVANA on Sunday. Most likely PICC line on Sunday. Full code. Discharge plan: home after JOVANA on Sunday. Impression and plan of care have been directed as dictated by the signing physician. Isabelle Andersen nurse practitioner acting as scribe for signing physician.
[2019-09-05 17:02] LABS: Glucose,Whole Blood 216 mg/dL (75-99)
[2019-09-05 20:02] LABS: Glucose,Whole Blood 135 mg/dL (75-99)
[2019-09-05] MEDS: MONTELUKAST 10 MG TAB PO SCH (20:47)
[2019-09-05] MEDS: ALPRAZolam 0.25 MG TAB PO PRN (20:52)
[2019-09-06] MEDS: SODIUM CHLORIDE 0.65% NASAL SPRAY 44 ML BTL NASAL SCH ×3 (00:13→20:58)
[2019-09-06] MEDS: MELATONIN 3 MG TABLET PO SCH ×2 (05:42→23:14)
[2019-09-06 06:18] LABS: Glucose,Whole Blood 187 mg/dL (75-99)
[2019-09-06] MEDS: INSULIN ASPART (NovoLOG) 100 UNIT/ML VIAL SQ SCH ×4 (06:20→20:51)
[2019-09-06] MEDS: CARVEDILOL 3.125 MG TAB PO SCH ×2 (06:20→16:58)
[2019-09-06 06:34] LABS: Calcium 9.4 mg/dL (8.4-10.2); Magnesium 2.2 mg/dL (1.6-2.3); Potassium 3.5 mmol/L (3.5-5.1)
[2019-09-06] MEDS: SYMBICORT 80-4.5 MCG INHALER (MHU) INHALATION SCH ×2 (07:23→19:54)
[2019-09-06] MEDS ORDERED: acetaZOLAMIDE 250 MG TAB PO ONE (08:00)
[2019-09-06] MEDS: METHADONE 10 MG TAB PO SCH (09:07)
[2019-09-06] MEDS: HEPARIN SODIUM,PORCINE 5,000 UNIT/ML 1 ML VIAL SQ SCH ×3 (09:07→23:06)
[2019-09-06] MEDS: predniSONE 10 MG TAB PO SCH ×2 (09:08→20:55)
[2019-09-06] MEDS: METHADONE 5 MG TAB PO SCH (09:08)
[2019-09-06] MEDS: MULTIVITAMINS, THERA 1 EACH TAB PO SCH (09:09)
[2019-09-06] MEDS ORDERED: POTASSIUM CHLORIDE ER 20 MEQ TAB.ER PO STA (09:09)
[2019-09-06] MEDS: ATORVASTATIN 40 MG TAB PO SCH (09:09)
--- NOTE | 2019-09-06 09:10 | P.PN ---
Subjective Patient is seen in follow-up for acute kidney injury. Renal function is little worse today due to diuresis. He is maintained on oral Lasix. Nonoliguric. Edema improving. JOVANA not done this admission due to anxiety. Bicarb level of 44 today. Vital signs are stable. General: The patient appeared well nourished and normally developed. HEENT: Head exam is unremarkable. Neck is without jugular venous distension. LUNGS: Lungs are clear to auscultation and percussion. Breath sounds decreased. HEART: Rate and Rhythm are regular. First and second heart sounds normal. No murmurs, rubs or gallops. ABDOMEN: Soft. No tenderness. EXTREMITITES: 1+ edema. Objective - Vital Signs Vital signs: Vital Signs Temp 97.9 F 09/06/19 04:00 Pulse 76 09/06/19 04:00 Resp 18 09/06/19 04:00 BP 107/69 09/06/19 04:00 Pulse Ox 96 09/06/19 04:00 Intake & Output 09/05/19 09/06/19 09/06/19 18:59 06:59 18:59 Intake Total 360 367 240 Output Total 1999 2224 Balance -1640 -1858 240 Weight 94.9 kg Intake: IV 80 0.9 80 Intake, IV Titration 50 Amount ceFAZolin 2 gm In Sodium 50 Chloride 0.9% 50 ml @ 100 mls/hr IVPB Q8HR [facility] Rx# :[id number] Oral 360 237 240 Output: Urine 1999 2224 Other: Voiding Method Indwelling Catheter Indwelling Catheter - Labs CBC & Chem 7: 09/04/19 07:04 09/06/19 05:43 Labs: Abnormal Lab Results - Last 24 Hours (Table) 09/05/19 09/05/19 09/05/19 Range/Units 11:40 17:01 20:02 Sodium (137-145) mmol/L Chloride (98-107) mmol/L Carbon Dioxide (22-30) mmol/L BUN (9-20) mg/dL Creatinine (0.66-1.25) mg/dL Glucose (74-99) mg/dL POC Glucose (mg/dL) 245 H 216 H 135 H (75-99) mg/dL 09/06/19 09/06/19 Range/Units 05:43 06:16 Sodium 131 L (137-145) mmol/L Chloride 78 L (98-107) mmol/L Carbon Dioxide 44 H* (22-30) mmol/L BUN 76 H (9-20) mg/dL Creatinine 1.80 H (0.66-1.25) mg/dL Glucose 130 H (74-99) mg/dL POC Glucose (mg/dL) 187 H (75-99) mg/dL Microbiology - Last 24 Hours (Table) 09/03/19 10:49 Blood Culture - Preliminary Blood No Growth after 48 hours 09/04/19 07:04 Blood Culture - Preliminary Blood No Growth after 24 hours Assessment and Plan Plan: Assessment: 1. Acute kidney injury mostly prerenal secondary to cardiorenal syndrome. Renal function little worse due to diuresis. Creatinine 1.8 today. No proteinuria on UA. 2. Volume overload. Improving with diuresis. 3. Acute on chronic systolic CHF with ejection fraction less than 20% with mild to moderate mitral regurgitation. 4. Hypotension related to underlying cardiac status. Stable. 5. Hypervolemic hyponatremia. 6. Hyperkalemia secondary to acute kidney injury and entresto. Blood sugars a lso slightly on the higher side. Resolved. 7. Staph aureus bacteremia. Maintained on antibiotics. JOVANA not done as he got anxious. 8. Metabolic alkalosis secondary to diuresis. Plan: Decrease Lasix to 40 mg orally twice daily. Stop metolazone. Add Diamox 250 mg twice daily. Replace potassium. Tight blood sugar control. Hold Entresto systolic blood pressure less than 90. Continue to monitor renal function and urine output. I advised them to follow low-salt diet and 50 oz fluid restriction per day. I also advised him to weigh himself daily and to call our office if gains more than 2-3 pounds or has worsening of edema. Repeat labs in AM.
--- NOTE | 2019-09-06 11:29 | P.PN ---
Subjective Progress Note Date: 09/06/19 This is a 58-year-old male patient of Drs. Bautista, Jing and Farideh with past medical history of coronary artery disease and status post coronary artery bypass grafting and previous angioplasty and stenting so that, heart catheterization in September 2018 revealed severe stenosis of the LAD with occluded first obtuse marginal branch, chronically occluded mid right coronary artery, mild to moderate disease of the proximal left circumflex, patent JACKSON to LAD, patent saphenous vein graft to the diagonal branch and to the right PDA, severely impaired left ventricular systolic function, ischemic cardiomyopathy EF of 20% status post AICD, chronic systolic heart failure as well as chronic obstructive pulmonary disease, chronic hypoxic respiratory failure on home O2, hypertension, hyperlipidemia, chronic pain syndrome on methadone, tobacco use and dependencequit September 2018, patient presented to the emergency department at [facility] with increased shortness breath associated with increased swelling in both lower extremities and he has been checking his weight and regular basis and he noticed a sudden increase in his weight over the last 48 hours he was not catching his breath without any chest pain patient troponin was slightly elevated he was admitted to the hospital for non-ST elevation MN however because of the concern of requiring more oxygen along with the cough patient was admitted to the hospital under the droplet precautions influenza A and B will be obtained as well as COVID-19 will be obtained, pulmonary and cardiology consult was obtained. 08/30: Patient sitting up in bed, appears a bit drowsy in the morning he put his oxygen up to 8 L per nasal cannula on his own and he stated that he is having trouble with that he discuss that with his supervisory aide in the past, I advised him to cut down the oxygen level to keep saturation between 90-93% at this point but he refused, he would be seen in consultation by nephrology due to his acute kidney injury as his creatinine jumped to 0.07 from 1.67, his diuretics initially was stopped then he was restarted BiPAP nephrology at 80 mg IV push every 12 hours, we discontinued his Entresto and spironolactone, monitor the patient blood pressure very closely discontinued. As well, keep his blood pressure greater than 120 systolic at all the time. We'll repeat his labs in the morning. 08/31: Patient has been afebrile, heart rate 76, blood pressure 82/47, a flex 100% on 6 L nasal cannula. Repeat blood work reveals WBC 9.8, hemoglobin 9.1, platelet count 145. Sodium 132, potassium 4.9, chloride 89, CO2 38, BUN 79, creatinine 1.63. Blood sugar 244. Covid 19 remains pending. Blood culture is showing Staphylococcus aureus. Patient is seen today resting in bed. Appears to be comfortable at rest. He continues to have lower extremity edema. He is diuresing well with good urine output. Nephrology is recommended Lasix 80 mg twice daily. 09/01: COVID-19 testing came back negative. Droplet isolation discontinued. Patient is afebrile, heart rate 82. Blood pressure currently 100/60, pulse ox 94% on 6 L nasal cannula. Repeat blood work reveals sodium 132, potassium 5.4, chloride 91, CO2 30, BUN 89, creatinine 1.75. Dr. Magana is planning for another day of Lasix [address] MYRA Marroquin recommends continuing the current medications. Patient has had low blood pressure during the night and yesterday. Entresto will be discontinued. His Whitlock catheter and with good urine output. He continues to have lower extremity edema. He denies having any blood in the stools, no gastric reflux. Because blood sugars have been elevated, hemoglobin A1c will be checked. NovoLog scale added. 09/02: Patient noted to have positive blood culture with MSSA. Rocephin will be started and consult with Dr. Ochoa. Echocardiogram will be ordered to assess for vegetation. Consult added for registered dietitian regarding heart failure diet and weight loss. Patient to be on a low-salt diet and 50 ounce fluid restriction per day. Cardiology was added in Zaroxolyn and IV Lasix changed to oral 80 mg twice daily. 09/03: The patient was seen by Dr. Magana this morning and metolazone has been discontinued. Patient continued on Lasix 80 mg oral twice daily. Patient is diuresing well with mildly improved lower extremity edema. Whitlock cath remains in place. He is on fluid restriction of 15 ounces. ULICES hose will be ordered. He denies having any fever or chills, no myalgias. He has had a bowel movement this morning which was normal, no blood or tightness. Patient states he slept well last night. Chest x-ray this morning reveals redemonstration of right hemidiaphragm elevation could relate to paralysis. Strand-like bibasilar atelectasis. Echocardiogram reveals EF of 20-25%, moderate concentric left ventricular hypertrophy with severe global hypokinesia of the LV. Moderate mitral regurgitation, mild tricuspid regurgitation, no pulmonary hypertension. Cannot rule out vegetation. Patient has been seen by Dr. Ochoa and antibiotics changed to Kefzol and recommends JOVANA. Discussed with cardiology and they will plan to schedule the patient. Repeat blood culture has been obtained. 09/04: Prior to JOVANA, patient was complaining of nausea for which Zofran was given. Patient went for the JOVANA and developed significant shortness of breath and was anxious and JOVANA was postponed. This will most likely be rescheduled for Sunday. Dr. Magana is recommended continuing Lasix 80 mg twice daily. Repeat lab work reveals sodium 133, potassium 4.6, chloride 85, CO2 35, BUN 62, creatinine 1.56. Blood sugars running between 115 and 245. Repeat blood cultures showing no growth at 24 hours from both September 02 and September 0309/05: Today, patient states that his breathing events much better. He is currently on Lasix 40 mg oral twice daily. Diamox was started this morning. He has good output from Whitlock catheter which will be discontinued and post void residual to be checked. Patient has decreased edema to the lower extremities. Patient states that he is anxious to go home and requested to go home today. We are currently waiting for JOVANA to be rescheduled for Sunday and then a PICC line placed as well for bacteremia. Patient has started using rubber bands to exercise in the room. Patient is afebrile, heart rate 65, blood pressure 99/62, pulse ox 91% on 5 L nasal cannula. Repeat blood work reveals sodium 131, potassium 3.5, chloride 78, CO2 44, BUN 76 and creatinine 1.8. Blood sugars running between 130 and 216. Objective - Vital Signs Vital signs: Vital Signs Temp 97.7 F 09/06/19 08:00 Pulse 65 09/06/19 08:00 Resp 16 09/06/19 08:00 BP 99/62 09/06/19 08:00 Pulse Ox 91 L 09/06/19 08:00 Intake & Output 09/05/19 09/06/19 09/06/19 18:59 06:59 18:59 Intake Total 360 367 240 Output Total 1999 2224 Balance -1640 -1435 240 Weight 94.9 kg Intake: IV 80 0.9 80 Intake, IV Titration 50 Amount ceFAZolin 2 gm In Sodium 50 Chloride 0.9% 50 ml @ 100 mls/hr IVPB Q8HR [facility] Rx# :[id number] Oral 360 237 240 Output: Urine 1999 2224 Other: Voiding Method Indwelling Catheter Indwelling Catheter - Exam Review of Systems Constitutional: Denies chills, denies fever, Denies lethargy, Denies weakness Eyes: denies blurred vision, denies bulging eye Ears, nose, mouth and throat: Denies dental pain, Denies dysphagia, Denies neck lump, Denies sore throat Cardiovascular: Reports decreased exercise tolerance, Reports dyspnea on exertion, denies shortness of breath, Denies chest pain, Denies lightheadedness, Denies rapid heart beat, Denies syncope Respiratory: Reports cough, denies home oxygen, Denies congestion, Denies cough with sputum, Denies sleep apnea, Denies snoring, Denies wheezing, denies shortness of breath Gastrointestinal: Denies abdominal pain, Denies bloating, Denies BRBPR, Denies excessive gas, Denies heartburn, Denies melena, reports nausea, Denies vomiting Genitourinary: Reports nocturia, Denies dysuria, Whitlock in place with clear anayeli urine Musculoskeletal: Denies myalgias Musculoskeletal: absent: ankle pain, ankle stiffness, ankle swelling, elbow pain, elbow stiffness, elbow swelling, foot pain, foot stiffness, foot swelling, hand pain, hand stiffness, hand swelling, hip pain, hip stiffness, hip swelling, knee pain, knee stiffness, knee swelling, shoulder pain, shoulder stiffness, shoulder swelling, wrist pain, wrist stiffness, wrist swelling Integumentary: Denies pruritus, Denies rash Neurological: Denies numbness, Denies weakness Psychiatric: Reports anxiety, Denies depression Endocrine: Denies fatigue, Denies weight change Physical Examination: GEN: This is a 58-year-old male. He is resting in bed and appears to be comfortable. No respiratory distress noted at rest. Patient noted to be more active today HEENT: Head is atraumatic, normal cephalic, pupils were equal round reactive to light and accommodation, extraocular muscle movement were intact, mucous membranes of mouth is dry. Neck: Supple, no JVP. Chest: Decreased breath sound at bases, few rhonchi, minimal expiratory wheezes, minimal intercostal retraction, there is an AICD located in the left upper precordium. Heart: First heart sound is depressed, second heart sounds normal, there is systolic ejection murmur 2/6 located in the left sternal border, there is AICD in the left upper precordium Abdomen: Soft, nontender, nondistended, positive bowel sounds. Whitlock catheter draining clear anayeli urine. Extremities: no edema, no calf tenderness, dorsalis pedis +1 bilaterally. Neurologic examination: Patient is awake alert and oriented 3, cranial nerves II-12 appear grossly intact. - Labs CBC & Chem 7: 09/04/19 07:04 09/06/19 05:43 Labs: Abnormal Lab Results - Last 24 Hours (Table) 09/05/19 09/05/19 09/05/19 Range/Units 11:40 17:01 20:02 Sodium (137-145) mmol/L Chloride (98-107) mmol/L Carbon Dioxide (22-30) mmol/L BUN (9-20) mg/dL Creatinine (0.66-1.25) mg/dL Glucose (74-99) mg/dL POC Glucose (mg/dL) 245 H 216 H 135 H (75-99) mg/dL 09/06/19 09/06/19 Range/Units 05:43 06:16 Sodium 131 L (137-145) mmol/L Chloride 78 L (98-107) mmol/L Carbon Dioxide 44 H* (22-30) mmol/L BUN 76 H (9-20) mg/dL Creatinine 1.80 H (0.66-1.25) mg/dL Glucose 130 H (74-99) mg/dL POC Glucose (mg/dL) 187 H (75-99) mg/dL Microbiology - Last 24 Hours (Table) 09/04/19 07:04 Blood Culture - Preliminary Blood No Growth after 48 hours 09/03/19 10:49 Blood Culture - Preliminary Blood No Growth after 48 hours Assessment and Plan Plan: 1. Acute on chronic hypoxemic respiratory failure due to acute on chronic sy stolic heart failure, COPD. Acute coronary syndrome ruled out by cardiology. Continue Lasix 40 mg oral twice daily, Zaroxolyn discontinued. Continue Lipitor 40 mg orally once every day, Coreg 3.125 mg orally twice every day, subcutaneous heparin. Pulmonary and cardiology consults appreciated. Diamox 250 mg twice daily added. Continue Symbicort 2. Coronary artery disease status post coronary artery bypass graft with PCI and ischemic cardiomyopathy post AICD. Discontinue spironolactone. Discontinue Entresto. Continue Lasix at 80 mg po every 12 hours. Monitor the patient input and output and daily weight bladder scan will be done to check for postvoid retention, if the post void residual greater than [address] 3. COPD without exacerbation. Continue DuoNeb 3 mg nebulization 4 times every day, continue prednisone 10 mg orally twice a day, continue Symbicort twice every day. 4. Hypertension and hypertensive cardiovascular disease. Continue patient on carvedilol 3.125 mg orally twice every day. 5. Hyperlipidemia. Continue Lipitor 40 mg orally once every day. 6. Acute kidney injury secondary to diuretics as well as low blood flow to the kidney. Hold Spironolactone. 7. History of tobacco use and dependence. Patient is not smoking at this point . 8. Chronic pain syndrome. Continue patient on methadone. 9. DVT prophylaxis. Continue heparin subcu. 10. GI prophylaxis. Pepcid 20 mg orally once every day. 11. MSSA bacteremia. Consult with Dr. Ochoa appreciated. Patient now on Kefzol 2 g every 8 hours. Repeat blood culture showing no growth. JOVANA on Sunday. Most likely PICC line on Sunday. Full code. Discharge plan: home after JOVANA on Sunday. Patient will need PICC line placement on Sunday. Impression and plan of care have been directed as dictated by the signing physician. Isabelle Andersen nurse practitioner acting as scribe for signing physician.
[2019-09-06] MEDS: EZETIMIBE 10 MG TAB PO SCH (12:08)
[2019-09-06 12:11] LABS: Glucose,Whole Blood 184 mg/dL (75-99)
--- NOTE | 2019-09-06 12:16 | P.PN ---
Subjective This is a pleasant 58-year-old male past medical history significant for ischemic cardiomyopathy, biventricular ICD is currently being treated for staph aureus bacteremia. He is scheduled to undergo a transesophageal echocardiogram with Dr. Ch on Sunday. He is seen and examined up ambulating around the room. Overall his breathing has greatly improved. His lower extremity edema has improved. He denies symptoms of chest pain, dizziness or palpitations. Blood pressure 99/62 heart rate 65 afebrile maintaining oxygen saturation on nasal cannula. Laboratory data reviewed, sodium 131, potassium 3.5, creatinine 1.8 with a GFR of 40 and magnesium 2.2. Currently maintained on Diamox 250 mg twice a day I'm atorvastatin 40 mg daily, carvedilol 3.125 mg twice a day, Zetia 10 mg daily and Lasix 40 mg by mouth twice a day. GENERAL: Well-appearing, well-nourished and in no acute distress. NECK: Supple without JVD or thyromegaly. LUNGS: Breath sounds clear to auscultation bilaterally. Respiration equal and unlabored. No wheezes, rales or rhonchi. HEART: Regular rate and rhythm with systolic ejection murmur at the left sternal border, no rubs or gallops. S1 and S2 heard. EXTREMITIES: Normal range of motion, no edema. No clubbing or cyanosis. Peripheral pulses intact. ASSESSMENT Acute on chronic hypoxic respiratory failure secondary to chronic systolic heart failure and COPD Acute on chronic systolic heart failure COPD MSSA bacteremia Coronary artery disease status post bypass grafting Ischemic cardiomyopathy status post AICD placement Acute kidney injury Dyslipidemia PLAN Continue current medical regimen. JOVANA will be performed on Sunday morning with Dr. Ch. We will continue to follow make recommendations accordingly. Nurse Practitioner note has been reviewed, I agree with a documented findings and plan of care. Patient was seen and examined. Objective - Vital Signs Vital signs: Vital Signs Temp 97.7 F 09/06/19 08:00 Pulse 65 09/06/19 08:00 Resp 16 09/06/19 08:00 BP 99/62 09/06/19 08:00 Pulse Ox 91 L 09/06/19 08:00 Intake & Output 09/05/19 09/06/19 09/06/19 18:59 06:59 18:59 Intake Total 360 367 240 Output Total 1999 0161 Balance -1640 -5782 240 Weight 94.9 kg Intake: IV 80 0.9 80 Intake, IV Titration 50 Amount ceFAZolin 2 gm In Sodium 50 Chloride 0.9% 50 ml @ 100 mls/hr IVPB Q8HR [facility] Rx# :[id number] Oral 360 237 240 Output: Urine 1999 2225 Other: Voiding Method Indwelling Catheter Indwelling Catheter - Labs CBC & Chem 7: 09/04/19 07:04 09/06/19 05:43 Labs: Abnormal Lab Results - Last 24 Hours (Table) 09/05/19 09/05/19 09/06/19 Range/Units 17:01 20:02 05:43 Sodium 131 L (137-145) mmol/L Chloride 78 L (98-107) mmol/L Carbon Dioxide 44 H* (22-30) mmol/L BUN 76 H (9-20) mg/dL Creatinine 1.80 H (0.66-1.25) mg/dL Glucose 130 H (74-99) mg/dL POC Glucose (mg/dL) 216 H 135 H (75-99) mg/dL 09/06/19 Range/Units 06:16 Sodium (137-145) mmol/L Chloride (98-107) mmol/L Carbon Dioxide (22-30) mmol/L BUN (9-20) mg/dL Creatinine (0.66-1.25) mg/dL Glucose (74-99) mg/dL POC Glucose (mg/dL) 187 H (75-99) mg/dL Microbiology - Last 24 Hours (Table) 09/04/19 07:04 Blood Culture - Preliminary Blood No Growth after 48 hours 09/03/19 10:49 Blood Culture - Preliminary Blood No Growth after 48 hours
[2019-09-06] MEDS: FUROSEMIDE 80 MG TAB PO SCH (16:10)
[2019-09-06] MEDS: METOLAZONE 2.5 MG TAB PO SCH (16:10)
[2019-09-06 16:30] LABS: Glucose,Whole Blood 176 mg/dL (75-99)
[2019-09-06] MEDS: ALPRAZolam 0.25 MG TAB PO PRN (16:58)
[2019-09-06] MEDS: FUROSEMIDE 40 MG TAB PO SCH (16:58)
[2019-09-06 20:33] LABS: Glucose,Whole Blood 106 mg/dL (75-99)
[2019-09-06] MEDS: MONTELUKAST 10 MG TAB PO SCH (20:55)
[2019-09-06] MEDS ORDERED: acetaZOLAMIDE 250 MG TAB PO SCH (21:00)
[2019-09-07] MEDS: CARVEDILOL 3.125 MG TAB PO SCH ×2 (06:21→17:52)
[2019-09-07] MEDS: INSULIN ASPART (NovoLOG) 100 UNIT/ML VIAL SQ SCH ×4 (06:21→21:30)
[2019-09-07 06:22] LABS: Glucose,Whole Blood 130 mg/dL (75-99)
[2019-09-07 07:08] LABS: Calcium 9.1 mg/dL (8.4-10.2); Magnesium 2.4 mg/dL (1.6-2.3); Potassium 3.5 mmol/L (3.5-5.1)
[2019-09-07] MEDS: SYMBICORT 80-4.5 MCG INHALER (MHU) INHALATION SCH ×2 (07:11→20:26)
--- NOTE | 2019-09-07 07:12 | CT ---
EXAMINATION TYPE: CT chest wo con DATE OF EXAM: 09/07/2019 COMPARISON: Previous study dated 04/22/2019 HISTORY: Pneumonia. CT DLP: 626 mGycm. Automated Exposure Control for Dose Reduction was Utilized. TECHNIQUE: CT scan of the thorax is performed without IV contrast. FINDINGS: There is bullous emphysema in the upper lobes bilaterally, worse on the right than the left . There is some atelectatic change along the major fissures bilaterally. There is no significant axillary, mediastinal or hilar adenopathy. There is a bipolar pacemaker in pl eliana. There is no pleural or pericardial fluid. The heart is not enlarged. There is elevation of the right hemidiaphragm. Visualized upper abdominal structures are normal. IMPRESSION: 1. Changes of bullous emphysema. 2. Mild atelectasis adjacent to the major fissures bilaterally. 3. No definite pneumonia is seen at this time.
--- NOTE | 2019-09-07 08:14 | PN ---
PROGRESS NOTE DATE OF SERVICE: 09/06/2019 REASON FOR FOLLOWUP: MSSA bacteremia question of endocarditis. INTERVAL HISTORY: The patient is currently afebrile, has been breathing comfortably. The patient denies having any chest pain, did have some cough. No nausea, vomiting. No abdominal pain or diarrhea. PHYSICAL EXAMINATION: Blood pressure is 126/91 with a pulse of 83, temperature is 97.7. He is 94% on 5 L nasal cannula. General description is a middle-aged male lying in bed in no distress. Respiratory system: Unlabored breathing, decreased breath sounds in the bases. No wheeze. Heart S1, S2. Regular rate and rhythm. ABDOMEN: Soft, no tenderness. LABS: White count 8.9. Creatinine is up to 1.80. Blood culture repeat has been negative. DIAGNOSTIC IMPRESSION AND PLAN: Patient with MSSA bacteremia. Concern for possible endocarditis. X-rays have been negative for any consolidation. CT chest to be done without any contrast to make sure no evidence of any significant consolidation. Await JOVANA possibly on Sunday and we will monitor clinical course closely. MMODL / IJN: [id number] /
[2019-09-07] MEDS: METHADONE 5 MG TAB PO SCH (09:15)
[2019-09-07] MEDS: METHADONE 10 MG TAB PO SCH (09:15)
[2019-09-07] MEDS: predniSONE 10 MG TAB PO SCH ×2 (09:15→21:30)
[2019-09-07] MEDS: FUROSEMIDE 40 MG TAB PO SCH (09:15)
[2019-09-07] MEDS: HEPARIN SODIUM,PORCINE 5,000 UNIT/ML 1 ML VIAL SQ SCH ×3 (09:16→23:56)
[2019-09-07] MEDS: EZETIMIBE 10 MG TAB PO SCH (09:16)
[2019-09-07] MEDS: SODIUM CHLORIDE 0.65% NASAL SPRAY 44 ML BTL NASAL SCH ×2 (09:16→21:31)
[2019-09-07] MEDS: ATORVASTATIN 40 MG TAB PO SCH (09:16)
[2019-09-07] MEDS: MULTIVITAMINS, THERA 1 EACH TAB PO SCH (09:16)
[2019-09-07] MEDS ORDERED: POTASSIUM CHLORIDE ER 20 MEQ TAB.ER PO STA (10:19)
--- NOTE | 2019-09-07 10:19 | P.PN ---
Subjective Patient is seen in follow-up for acute kidney injury. Renal function is worse today due to diuresis and hypotension. He is maintained on oral Lasix. Nonoliguric. Edema improving. JOVANA not done this admission due to anxiety. Bicarb level down to 38 today. He received 2 doses of Diamox yesterday. Vital signs are stable. General: The patient appeared well nourished and normally developed. HEENT: Head exam is unremarkable. Neck is without jugular venous distension. LUNGS: Lungs are clear to auscultation and percussion. Breath sounds decreased. HEART: Rate and Rhythm are regular. First and second heart sounds normal. No murmurs, rubs or gallops. ABDOMEN: Soft. No tenderness. EXTREMITITES: Trace edema. Objective - Vital Signs Vital signs: Vital Signs Temp 97.7 F 09/07/19 08:00 Pulse 83 09/07/19 08:00 Resp 18 09/07/19 08:00 BP 114/75 09/07/19 08:00 Pulse Ox 95 09/07/19 08:00 Intake & Output 09/06/19 09/07/19 09/07/19 18:59 06:59 18:59 Intake Total 840 287 240 Output Total 300 875 Balance 540 -588 240 Weight 95.5 kg Intake: Intake, IV Titration 50 Amount ceFAZolin 2 gm In Sodium 50 Chloride 0.9% 50 ml @ 100 mls/hr IVPB Q8HR [facility] Rx# :[id number] Oral 840 237 240 Output: Urine 300 875 Uretheral (Whitlock) 300 Other: Voiding Method Indwelling Catheter Urinal # Voids 1 - Labs CBC & Chem 7: 09/04/19 07:04 09/07/19 06:13 Labs: Abnormal Lab Results - Last 24 Hours (Table) 09/06/19 09/06/19 09/06/19 Range/Units 11:28 16:16 20:32 Sodium (137-145) mmol/L Chloride (98-107) mmol/L Carbon Dioxide (22-30) mmol/L BUN (9-20) mg/dL Creatinine (0.66-1.25) mg/dL Glucose (74-99) mg/dL POC Glucose (mg/dL) 184 H 176 H 106 H (75-99) mg/dL Magnesium (1.6-2.3) mg/dL 09/07/19 09/07/19 Range/Units 06:13 06:20 Sodium 130 L (137-145) mmol/L Chloride 82 L (98-107) mmol/L Carbon Dioxide 38 H (22-30) mmol/L BUN 85 H (9-20) mg/dL Creatinine 2.62 H (0.66-1.25) mg/dL Glucose 120 H (74-99) mg/dL POC Glucose (mg/dL) 130 H (75-99) mg/dL Magnesium 2.4 H (1.6-2.3) mg/dL Microbiology - Last 24 Hours (Table) 09/04/19 07:04 Blood Culture - Preliminary Blood No Growth after 72 hours 09/03/19 10:49 Blood Culture - Preliminary Blood No Growth after 72 hours Assessment and Plan Plan: Assessment: 1. Acute kidney injury mostly prerenal secondary to cardiorenal syndrome. Renal function worse due to diuresis and hypotension. Creatinine 2.62 today. No proteinuria on UA. 2. Volume overload. Improved with diuresis. 3. Acute on chronic systolic CHF with ejection fraction less than 20% with mild to moderate mitral regurgitation. 4. Hypotension related to underlying cardiac status. Stable. 5. Hyponatremia. Now euvolemic. 6. Hyperkalemia secondary to acute kidney injury and entresto. Blood sugars also slightly on the higher side. Resolved. 7. Staph aureus bacteremia. Maintained on antibiotics. JOVANA not done as he got anxious. 8. Metabolic alkalosis secondary to diuresis. Better. ABG could not be done despite multiple attempts by nurses. Plan: Hold tonight's dose of Lasix. Replace potassium. Tight blood sugar control. Continue to monitor renal function and urine output. I advised them to follow low-salt diet and 50 oz fluid restriction per day. I also advised him to weigh himself daily and to call our office if gains more than 2-3 pounds or has worsening of edema. Repeat labs in AM.
[2019-09-07] MEDS ORDERED: ALPRAZolam 0.5 MG TAB PO STA (10:39)
--- NOTE | 2019-09-07 10:43 | P.PN ---
Subjective Progress Note Date: 09/07/19 This is a 58-year-old male patient of Drs. Bautista, Jing and Farideh with past medical history of coronary artery disease and status post coronary artery bypass grafting and previous angioplasty and stenting so that, heart catheterization in September 2018 revealed severe stenosis of the LAD with occluded first obtuse marginal branch, chronically occluded mid right coronary artery, mild to moderate disease of the proximal left circumflex, patent JACKSON to LAD, patent saphenous vein graft to the diagonal branch and to the right PDA, severely impaired left ventricular systolic function, ischemic cardiomyopathy EF of 20% status post AICD, chronic systolic heart failure as well as chronic obstructive pulmonary disease, chronic hypoxic respiratory failure on home O2, hypertension, hyperlipidemia, chronic pain syndrome on methadone, tobacco use and dependencequit September 2018, patient presented to the emergency department at [facility] with increased shortness breath associated with increased swelling in both lower extremities and he has been checking his weight and regular basis and he noticed a sudden increase in his weight over the last 48 hours he was not catching his breath without any chest pain patient troponin was slightly elevated he was admitted to the hospital for non-ST elevation [place] however because of the concern of requiring more oxygen along with the cough patient was admitted to the hospital under the droplet precautions influenza A and B will be obtained as well as COVID-19 will be obtained, pulmonary and cardiology consult was obtained. 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 As well, keep his blood pressure greater than 120 systolic at all the time. We'll repeat his labs in the morning. 08/31: Patient has been afebrile, heart rate 76, blood pressure 82/47, a flex 100% on 6 L nasal cannula. Repeat blood work reveals WBC 9.8, hemoglobin 9.1, platelet count 145. Sodium 132, potassium 4.9, chloride 89, CO2 38, BUN 79, creatinine 1.63. Blood sugar 244. Covid 19 remains pending. Blood culture is showing Staphylococcus aureus. Patient is seen today resting in bed. Appears to be comfortable at rest. He continues to have lower extremity edema. He is diuresing well with good urine output. Nephrology is recommended Lasix 80 mg twice daily. 09/01: COVID-19 testing came back negative. Droplet isolation discontinued. Patient is afebrile, heart rate 82. Blood pressure currently 100/60, pulse ox 94% on 6 L nasal cannula. Repeat blood work reveals sodium 132, potassium 5.4, chloride 91, CO2 30, BUN 89, creatinine 1.75. Dr. Magana is planning for another day of Lasix [address] MYRA Marroquin recommends continuing the current medications. Patient has had low blood pressure during the night and yesterday. Entresto will be discontinued. His Whitlock catheter and with good urine output. He continues to have lower extremity edema. He denies having any blood in the stools, no gastric reflux. Because blood sugars have been elevated, hemoglobin A1c will be checked. NovoLog scale added. 09/02: Patient noted to have positive blood culture with MSSA. Rocephin will be started and consult with Dr. Ochoa. Echocardiogram will be ordered to assess for vegetation. Consult added for registered dietitian regarding heart failure diet and weight loss. Patient to be on a low-salt diet and 50 ounce fluid restriction per day. Cardiology was added in Zaroxolyn and IV Lasix changed to oral 80 mg twice daily. 09/03: The patient was seen by Dr. Magana this morning and metolazone has been discontinued. Patient continued on Lasix 80 mg oral twice daily. Patient is diuresing well with mildly improved lower extremity edema. Whitlock cath remains in place. He is on fluid restriction of 15 ounces. ULICES hose will be ordered. He denies having any fever or chills, no myalgias. He has had a bowel movement this morning which was normal, no blood or tightness. Patient states he slept well last night. Chest x-ray this morning reveals redemonstration of right hemidiaphragm elevation could relate to paralysis. Strand-like bibasilar atelectasis. Echocardiogram reveals EF of 20-25%, moderate concentric left ventricular hypertrophy with severe global hypokinesia of the LV. Moderate mitral regurgitation, mild tricuspid regurgitation, no pulmonary hypertension. Cannot rule out vegetation. Patient has been seen by Dr. Ochoa and antibiotics changed to Kefzol and recommends JOVANA. Discussed with cardiology and they will plan to schedule the patient. Repeat blood culture has been obtained. 09/04: Prior to JOVANA, patient was complaining of nausea for which Zofran was given. Patient went for the JOVANA and developed significant shortness of breath and was anxious and JOVANA was postponed. This will most likely be rescheduled for Sunday. Dr. Magana is recommended continuing Lasix 80 mg twice daily. Repeat lab work reveals sodium 133, potassium 4.6, chloride 85, CO2 35, BUN 62, creatinine 1.56. Blood sugars running between 115 and 245. Repeat blood cultures showing no growth at 24 hours from both September 02 and September 0309/05: Today, patient states that his breathing events much better. He is currently on Lasix 40 mg oral twice daily. Diamox was started this morning. He has good output from Whitlock catheter which will be discontinued and post void residual to be checked. Patient has decreased edema to the lower extremities. Patient states that he is anxious to go home and requested to go home today. We are currently waiting for JOVANA to be rescheduled for Sunday and then a PICC line placed as well for bacteremia. Patient has started using rubber bands to exercise in the room. Patient is afebrile, heart rate 65, blood pressure 99/62, pulse ox 91% on 5 L nasal cannula. Repeat blood work reveals sodium 131, potassium 3.5, chloride 78, CO2 44, BUN 76 and creatinine 1.8. Blood sugars running between 130 and 216. 09/06: Patient denies any new complaints today. States he is feeling okay. Repeat blood work reveals sodium 130, potassium 3.5, chloride 82, CO2 38, BUN 85 and creatinine 2.62, blood sugar 120. Blood sugar sugars up and running between 100 630. Magnesium 2.4. Diamox has been discontinued due to hyponatremia. Dr. Magana was held today's dose of Lasix and replace potassium. CAT scan of the chest without contrast revealed bullous emphysema. Mild atelectasis adjacent to major fissures bilaterally. No definite pneumonia. Incentive spirometry has been added. Patient is very anxious already regarding JOVANA scheduled for tomorrow. He does have Xanax available but we will order a one-time dose of Xanax 0.5 to be given 2 hours prior to procedure. Anticipate he will be ready for discharge tomorrow after midline/PICC and JOVANA are completed. Dr. Ochoa is m anaging antibiotics. He remains on Kefzol. Objective - Vital Signs Vital signs: Vital Signs Temp 97.6 F 09/07/19 04:00 Pulse 81 09/07/19 04:00 Resp 18 09/07/19 04:00 BP 96/59 09/07/19 04:00 Pulse Ox 94 L 09/07/19 04:00 Intake & Output 09/06/19 09/07/19 09/07/19 18:59 06:59 18:59 Intake Total 840 287 240 Output Total 300 875 Balance 540 -588 240 Weight 95.5 kg Intake: Intake, IV Titration 50 Amount ceFAZolin 2 gm In Sodium 50 Chloride 0.9% 50 ml @ 100 mls/hr IVPB Q[facility] Rx# :[id number] Oral 840 237 240 Output: Urine 300 875 Uretheral (Whitlock) 300 Other: Voiding Method Indwelling Catheter Urinal # Voids 1 - Exam Review of Systems Constitutional: Denies chills, denies fever, Denies lethargy, Denies weakness Eyes: denies blurred vision, denies bulging eye Ears, nose, mouth and throat: Denies dental pain, Denies dysphagia, Denies neck lump, Denies sore throat Cardiovascular: Reports decreased exercise tolerance, Reports dyspnea on exertion, denies shortness of breath, Denies chest pain, Denies lightheadedness, Denies rapid heart beat, Denies syncope Respiratory: Reports cough, denies home oxygen, Denies congestion, Denies cough with sputum, Denies sleep apnea, Denies snoring, Denies wheezing, denies shortness of breath Gastrointestinal: Denies abdominal pain, Denies bloating, Denies BRBPR, Denies excessive gas, Denies heartburn, Denies melena, reports nausea, Denies vomiting Genitourinary: Reports nocturia, Denies dysuria, Whitlock in place with clear anayeli urine Musculoskeletal: Denies myalgias Musculoskeletal: absent: ankle pain, ankle stiffness, ankle swelling, elbow pain, elbow stiffness, elbow swelling, foot pain, foot stiffness, foot swelling, hand pain, hand stiffness, hand swelling, hip pain, hip stiffness, hip swelling, knee pain, knee stiffness, knee swelling, shoulder pain, shoulder stiffness, shoulder swelling, wrist pain, wrist stiffness, wrist swelling Integumentary: Denies pruritus, Denies rash, denies wounds Neurological: Denies numbness, Denies weakness Psychiatric: Reports anxiety, Denies depression Endocrine: Denies fatigue, Denies weight change Physical Examination: GEN: This is a 58-year-old male. He is resting in bed and appears to be comfortable. No respiratory distress noted at rest. Patient noted to be more active today HEENT: Head is atraumatic, normal cephalic, pupils were equal round reactive to light and accommodation, extraocular muscle movement were intact, mucous membranes of mouth is dry. Neck: Supple, no JVP. Chest: Decreased breath sound at bases, no intercostal retraction, there is an AICD located in the left upper precordium. Heart: First heart sound is depressed, second heart sounds normal, there is systolic ejection murmur 2/6 located in the left sternal border, there is AICD in the left upper precordium Abdomen: Soft, nontender, nondistended, positive bowel sounds. Whitlock catheter draining clear anayeli urine. Extremities: no edema, no calf tenderness, dorsalis pedis +1 bilaterally. Neurologic examination: Patient is awake alert and oriented 3, cranial nerves II-12 appear grossly intact. - Labs CBC & Chem 7: 09/04/19 07:04 09/07/19 06:13 Labs: Abnormal Lab Results - Last 24 Hours (Table) 09/06/19 09/06/19 09/06/19 Range/Units 11:28 16:16 20:32 Sodium (137-145) mmol/L Chloride (98-107) mmol/L Carbon Dioxide (22-30) mmol/L BUN (9-20) mg/dL Creatinine (0.66-1.25) mg/dL Glucose (74-99) mg/dL POC Glucose (mg/dL) 184 H 176 H 106 H (75-99) mg/dL Magnesium (1.6-2.3) mg/dL 09/07/19 09/07/19 Range/Units 06:13 06:20 Sodium 130 L (137-145) mmol/L Chloride 82 L (98-107) mmol/L Carbon Dioxide 38 H (22-30) mmol/L BUN 85 H (9-20) mg/dL Creatinine 2.62 H (0.66-1.25) mg/dL Glucose 120 H (74-99) mg/dL POC Glucose (mg/dL) 130 H (75-99) mg/dL Magnesium 2.4 H (1.6-2.3) mg/dL Microbiology - Last 24 Hours (Table) 09/03/19 10:49 Blood Culture - Preliminary Blood No Growth after 72 hours 09/04/19 07:04 Blood Culture - Preliminary Blood No Growth after 48 hours Assessment and Plan Plan: 1. Acute on chronic hypoxemic respiratory failure due to acute on chronic systolic heart failure, COPD. Acute coronary syndrome ruled out by cardiology. Continue Lasix 40 mg oral twice daily, Zaroxolyn discontinued. Continue Lipitor 40 mg orally once every day, Coreg 3.125 mg orally twice every day, subcutaneous heparin. Pulmonary and cardiology consults appreciated. Diamox discontinued Continue Symbicort 2. Coronary artery disease status post coronary artery bypass graft with PCI and ischemic cardiomyopathy post AICD. Discontinue spironolactone. Discontinue Entresto. Continue Lasix at 80 mg po every 12 hours. Monitor the patient input and output and daily weight bladder scan will be done to check for postvoid retention, if the post void residual greater than [address] 3. COPD without exacerbation. Continue DuoNeb 3 mg nebulization 4 times every day, continue prednisone 10 mg orally twice a day, continue Symbicort twice every day. 4. Hypertension and hypertensive cardiovascular disease. Continue patient on carvedilol 3.125 mg orally twice every day. 5. Hyperlipidemia. Continue Lipitor 40 mg orally once every day. 6. Acute kidney injury secondary to diuretics as well as low blood flow to the kidney. Hold Spironolactone. 7. History of tobacco use and dependence. Patient is not smoking at this point. 8. Chronic pain syndrome. Continue patient on methadone. 9. DVT prophylaxis. Continue heparin subcu. 10. GI prophylaxis. Pepcid 20 mg orally once every day. 11. MSSA bacteremia. Consult with Dr. Ochoa appreciated. Patient now on Kefzol 2 g every 8 hours. Repeat blood culture showing no growth. JOVANA on Sunday. Most likely PICC line on Sunday. Full code. Discharge plan: home after JOVANA on Sunday. Patient will need PICC/mid line placement on Sunday. Impression and plan of care have been directed as dictated by the signing physician. Isabelle Andersen nurse practitioner acting as scribe for signing physician.
[2019-09-07 11:32] LABS: Glucose,Whole Blood 210 mg/dL (75-99)
--- NOTE | 2019-09-07 11:33 | P.PN ---
Subjective This is a pleasant 58-year-old male past medical history significant for ischemic cardiomyopathy, biventricular ICD is currently being treated for staph aureus bacteremia. He is scheduled to undergo a transesophageal echocardiogram with Dr. Ch on Sunday. He is seen and examined up ambulating around the room. Overall his breathing has greatly improved. His lower extremity edema has improved. He denies symptoms of chest pain, dizziness or palpitations. Blood pressure 99/62 heart rate 65 afebrile maintaining oxygen saturation on nasal cannula. Laboratory data reviewed, sodium 131, potassium 3.5, creatinine 1.8 with a GFR of 40 and magnesium 2.2. Currently maintained on Diamox 250 mg twice a day I'm atorvastatin 40 mg daily, carvedilol 3.125 mg twice a day, Zetia 10 mg daily and Lasix 40 mg by mouth twice a day. Laboratory data reviewed, sodium 1:30, potassium 3.5, creatinine 2.62 with a GFR of 25 and magnesium 2.4. 09/07/2019 Patient is seen and examined sitting up in bed in no acute distress. He denies worsening shortness of breath. He has no chest pain, dizziness or palpitations. Blood pressure 114/75 heart rate 83 afebrile maintaining oxygen saturation on nasal cannula. Currently maintained on Diamox 250 mg twice a day, atorvastatin 40 mg daily, carvedilol 3.125 mg twice a day, Zetia 10 mg daily and Lasix 40 mg by mouth twice a day. CT of the chest performed this morning reveals changes of bullous emphysema, mild atelectasis with no pneumonia. GENERAL: Well-appearing, well-nourished and in no acute distress. NECK: Supple without JVD or thyromegaly. LUNGS: Breath sounds clear to auscultation bilaterally. Respiration equal and unlabored. No wheezes, rales or rhonchi. HEART: Regular rate and rhythm with systolic ejection murmur at the left sternal border, no rubs or gallops. S1 and S2 heard. EXTREMITIES: Normal range of motion, no edema. No clubbing or cyanosis. Peripheral pulses intact. ASSESSMENT Acute on chronic hypoxic respiratory failure secondary to chronic systolic heart failure and COPD Acute on chronic systolic heart failure, improved Hyponatremia COPD MSSA bacteremia Coronary artery disease status post bypass grafting Ischemic cardiomyopathy status post AICD placement Acute kidney injury Dyslipidemia PLAN Recommend discontinuation of Diamox secondary to hyponatremia and worsening renal function. Plan for JOVANA tomorrow. Patient will be nothing by mouth after midnight tonight. PICC line placement and home antibiotics per ID. Nurse Practitioner note has been reviewed, I agree with a documented findings and plan of care. Patient was seen and examined. Objective - Vital Signs Vital signs: Vital Signs Temp 97.7 F 09/07/19 08:00 Pulse 83 09/07/19 08:00 Resp 18 09/07/19 08:00 BP 114/75 09/07/19 08:00 Pulse Ox 95 09/07/19 08:00 Intake & Output 09/06/19 09/07/19 09/07/19 18:59 06:59 18:59 Intake Total 840 287 240 Output Total 300 875 Balance 540 -588 240 Weight 95.5 kg Intake: Intake, IV Titration 50 Amount ceFAZolin 2 gm In Sodium 50 Chloride 0.9% 50 ml @ 100 mls/hr IVPB Q8HR [facility] Rx# :[id number] Oral 840 237 240 Output: Urine 300 875 Uretheral (Whitlock) 300 Other: Voiding Method Indwelling Catheter Urinal # Voids 1 - Labs CBC & Chem 7: 09/04/19 07:04 09/07/19 06:13 Labs: Abnormal Lab Results - Last 24 Hours (Table) 09/06/19 09/06/19 09/06/19 Range/Units 11:28 16:16 20:32 Sodium (137-145) mmol/L Chloride (98-107) mmol/L Carbon Dioxide (22-30) mmol/L BUN (9-20) mg/dL Creatinine (0.66-1.25) mg/dL Glucose (74-99) mg/dL POC Glucose (mg/dL) 184 H 176 H 106 H (75-99) mg/dL Magnesium (1.6-2.3) mg/dL 09/07/19 09/07/19 Range/Units 06:13 06:20 Sodium 130 L (137-145) mmol/L Chloride 82 L (98-107) mmol/L Carbon Dioxide 38 H (22-30) mmol/L BUN 85 H (9-20) mg/dL Creatinine 2.62 H (0.66-1.25) mg/dL Glucose 120 H (74-99) mg/dL POC Glucose (mg/dL) 130 H (75-99) mg/dL Magnesium 2.4 H (1.6-2.3) mg/dL Microbiology - Last 24 Hours (Table) 09/04/19 07:04 Blood Culture - Preliminary Blood No Growth after 72 hours 09/03/19 10:49 Blood Culture - Preliminary Blood No Growth after 72 hours
[2019-09-07 16:48] LABS: Glucose,Whole Blood 166 mg/dL (75-99)
[2019-09-07 20:51] LABS: Glucose,Whole Blood 192 mg/dL (75-99)
[2019-09-07] MEDS: ALPRAZolam 0.25 MG TAB PO PRN (21:30)
[2019-09-07] MEDS: MONTELUKAST 10 MG TAB PO SCH (21:30)
--- NOTE | 2019-09-07 21:39 | PN ---
PROGRESS NOTE DATE OF SERVICE: 09/07/2019 REASON FOR FOLLOWUP: MSSA bacteremia, question of endocarditis. INTERVAL HISTORY: The patient is currently afebrile, has been breathing comfortably. Denies having any chest pain. Minimal cough. No nausea, no vomiting. No abdominal pain. No diarrhea. Denies any pain in his upper or lower back area. PHYSICAL EXAMINATION: Blood pressure 132/80 with a pulse of 75. Temperature is 97.4. He is 96% on 4 L nasal cannula. General description is a middle-aged male lying in bed in no distress. Respiratory system: Unlabored breathing. Decreased breath sounds in the bases. No wheeze. Heart S1, S2. Regular rate and rhythm. Abdomen soft, no tenderness. LABS: Hemoglobin 10.5, white count 8.9, BUN of 85, creatinine is up to 2.62. DIAGNOSTIC IMPRESSION AND PLAN: Patient with MSSA bacteremia with question of possible endocarditis. Patient did have CT of the chest without contrast did not show any evidence of pneumonia, possible JOVANA in the morning. The patient's kidney function needs to be monitored in the morning. Possible prerenal. The patient will be getting a PICC line for IV antibiotic on outpatient setting. Discharge antibiotic will depend upon the final diagnosis and monitor clinical course closely. MMODL / IJN: [id number] /
[2019-09-07] MEDS: MELATONIN 3 MG TABLET PO SCH (23:56)
[2019-09-08 05:39] LABS: Glucose,Whole Blood 121 mg/dL (75-99)
[2019-09-08] MEDS: INSULIN ASPART (NovoLOG) 100 UNIT/ML VIAL SQ SCH ×4 (06:19→20:48)
[2019-09-08 06:39] LABS: African American GFR (CKD) 48 (>60 ml/min/1.73 sqM); Blood Urea Nitrogen 72 mg/dL (9-20); Calcium 9.3 mg/dL (8.4-10.2); Chloride 86 mmol/L (98-107); Glucose 92 mg/dL (74-99); Non-African American GFR(CKD) 42 (>60 ml/min/1.73 sqM); Potassium 3.6 mmol/L (3.5-5.1); Sodium 131 mmol/L (137-145)
[2019-09-08 06:43] LABS: Anion Gap 8 mmol/L
[2019-09-08 06:56] LABS: C Reactive Protein <5.0 mg/L (<10.0); Carbon Dioxide 37 mmol/L (22-30)
[2019-09-08] MEDS: CARVEDILOL 3.125 MG TAB PO SCH ×2 (06:59→18:23)
[2019-09-08] MEDS: ALPRAZolam 0.5 MG TAB PO STA ×2 (07:00→08:05)
[2019-09-08] MEDS: SYMBICORT 80-4.5 MCG INHALER (MHU) INHALATION SCH ×2 (08:15→19:24)
[2019-09-08] MEDS ORDERED: fentaNYL (PF) 50 MCG/ML 2 ML AMP ONE (08:58)
[2019-09-08] MEDS ORDERED: SODIUM CHLORIDE 0.9% 500 ML 500 ML IV ONE (09:00)
[2019-09-08] MEDS ORDERED: IV FLUID CONTINUATION 1,000 ML IV ONE (09:00)
[2019-09-08] MEDS: MIDAZOLAM 2 MG/2 ML VIAL IV ONE ×2 (09:10→09:13)
[2019-09-08] MEDS ORDERED: fentaNYL (PF) 50 MCG/ML 2 ML AMP IV ONE (09:10)
[2019-09-08] MEDS ORDERED: BENZOCAINE SPRAY 1 CAN MUCOUS MEM ONE (09:10)
--- NOTE | 2019-09-08 09:14 | PN ---
PROGRESS NOTE Mr. Goodman is a gentleman with ischemic cardiomyopathy, biventricular pacer, also has a Staph aureus in the blood. He is going to have a transesophageal echo and a PICC line today. His breathing is better. It is easier. His creatinine has improved. His vitals are stable, there is JVD. No carotid bruit, S1-S2 heard normally, short systolic murmur noted. Lungs are clear. Abdomen is soft. Lower extremity reveal normal pulses. Significantly resolved edema. Plan is to continue current medical regimen. His Lasix will be restarted by Nephrology. I am recommending that he can proceed with a JOVANA and PICC line today. He can be transferred to the medical floor after that. MMODL / IJN: [id number] /
[2019-09-08] MEDS ORDERED: SODIUM CHLORIDE 0.9% 1,000 ML IV SCH (09:30)
--- NOTE | 2019-09-08 09:49 | ECHOT ---
TRANSESOPHAGEAL ECHOCARDIOGRAM TRANSESOPHAGEAL ECHOCARDIOGRAM: INDICATION: Evaluation of vegetation for bacteremia. PROCEDURE: After explaining the procedure to the patient, its risks and complications, his blood pressure, heart rate, O2 saturation was monitored. The throat was sprayed with Cetacaine. He received 3 mg intravenous Versed and 50 mcg intravenous fentanyl. The probe was introduced into the esophagus without difficulties. Images were obtained from that, the probe was removed. There was no immediate complication. FINDINGS: Left atrial size is mildly dilated. Left atrial appendage is normal. Left ventricular systolic function severely impaired. There is an ejection fraction of 20% to 25%. The aortic valve revealed fibrocalcific change of the aortic cusp with preserved opening. Calcification of the mitral valve and mitral anulus calcification was noted. Tricuspid valve was not well visualized. A wire was noted in the right atrium and the right ventricle with no evidence of vegetation. Descending thoracic aorta revealed mild atherosclerotic changes. No pericardial effusion was noted. Contrast bubble study revealed no evidence of shunting across the interatrial septum. Doppler pulse wave and color Doppler obtained and revealed moderate mitral with mild to moderate tricuspid regurgitation. There was no shunting by color Doppler study. CONCLUSION: 1. Severely impaired left ventricular systolic function. 2. Mildly dilated left atrium. 3. Aortic sclerosis with no evidence of stenosis. 4. Mitral annular calcification. 5. Moderate mitral with mild to moderate tricuspid regurgitation. 6. No shunting by color Doppler study. 7. Wire was noted in the right ventricle in the right atrium with no evidence of vegetations noted. 8. Mild atherosclerotic changes of the descending thoracic aorta. MMODL / IJN: [id number] / DEBI
[2019-09-08] MEDS: METHADONE 10 MG TAB PO SCH (10:00)
[2019-09-08] MEDS: METHADONE 5 MG TAB PO SCH (10:01)
[2019-09-08] MEDS: MULTIVITAMINS, THERA 1 EACH TAB PO SCH (10:01)
[2019-09-08] MEDS: ATORVASTATIN 40 MG TAB PO SCH (10:01)
[2019-09-08] MEDS: predniSONE 10 MG TAB PO SCH ×2 (10:02→20:58)
[2019-09-08] MEDS: EZETIMIBE 10 MG TAB PO SCH (10:02)
[2019-09-08] MEDS: SODIUM CHLORIDE 0.65% NASAL SPRAY 44 ML BTL NASAL SCH ×2 (10:02→22:18)
[2019-09-08] MEDS: HEPARIN SODIUM,PORCINE 5,000 UNIT/ML 1 ML VIAL SQ SCH ×3 (10:02→23:02)
[2019-09-08 10:16] LABS: Prothrombin Time 10.7 sec (9.0-12.0)
[2019-09-08 11:23] LABS: Glucose,Whole Blood 261 mg/dL (75-99)
[2019-09-08] MEDS ORDERED: LIDOCAINE 1% INJ 10MG/ML (20 ML MDV) SQ ONE (11:42)
--- NOTE | 2019-09-08 12:52 | IR ---
PICC LINE PLACEMENT: HISTORY: Infection requiring long-term antibiotic therapy PROCEDURE: Ultrasound and fluoroscopic guidance of PICC line placement. COMPLICATIONS: None ANESTHESIA: 1. 1% Lidocaine locally. FINDINGS/TECHNIQUE: The procedure was explained to the patient. The risks, complications, benefits and alternatives were discussed and any questions were answered. Informed consent was obtained. The patient was placed supine on the fluoroscopic table and prepped and draped in the usual sterile fash ion. Utilizing a 21 gauge needle and sonographic and fluoroscopic guidance, access in the right bas ilic vein was achieved and there is placement of a 0.018 guidewire. The vein is patent. A 4-F sheat h was placed over the guidewire. The guidewire and dilator were removed and a 4-F. PICC line was fracisco sheng through the sheath with the tip at the level of the SVC. The sheath was removed, the catheter wa s flushed and sutured into position. The patient was stable throughout the procedure and remained st able upon discharge from the Department of Radiology. The vein puncture was patent under ultrasound. A moore scale image was obtained to document patency of the vein punctured. All elements of the maximal barrier technique were utilized. FLUOROSCOPY TIME: 0.3 minutes and one image submitted IMPRESSION: Successful PICC line placement under ultrasound and fluoroscopic guidance.
--- NOTE | 2019-09-08 13:57 | P.DS ---
Providers Date of admission: 08/30/19 07:24 Expected date of discharge: 09/09/19 Attending physician: Vladimir Richard Consults: 08/30/19 07:23 Consult Physician Routine Consulting Provider: Elsy Ch Consult Reason/Comments: nstemi Do you want consulting provider notified?: Yes 08/30/19 07:29 Consult Physician Routine Consulting Provider: Jose L Gong Consult Reason/Comments: exertional dyspnea Do you want consulting provider notified?: Yes 08/31/19 09:28 Consult Physician Routine Consulting Provider: Alondra Vale Consult Reason/Comments: JEFF/CMP Do you want consulting provider notified?: Yes 08/31/19 09:29 Consult Physician Routine Consulting Provider: Elton Keller Consult Reason/Comments: COPD/Hypoxia/possible COVID-19 Do you want consulting provider notified?: Yes 09/03/19 10:43 Consult Physician Routine Consulting Provider: Kj Ochoa Consult Reason/Comments: bacteremia Do you want consulting provider notified?: Yes Primary care physician: [facility] Course: This is a 58-year-old male patient of Jing Enciso and Farideh with past medical history of coronary artery disease and status post coronary artery bypass grafting and previous angioplasty and stenting so that, heart catheterization in September 2018 revealed severe stenosis of the LAD with occluded first obtuse marginal branch, chronically occluded mid right coronary artery, mild to moderate disease of the proximal left circumflex, patent JACKSON to LAD, patent saphenous vein graft to the diagonal branch and to the right PDA, severely impaired left ventricular systolic function, ischemic cardiomyopathy EF of 20% status post AICD, chronic systolic heart failure as well as chronic obstructive pulmonary disease, chronic hypoxic respiratory failure on home O2, hypertension, hyperlipidemia, chronic pain syndrome on methadone, tobacco use and dependencequit September 2018, patient presented to the emergency department at [facility] with increased shortness breath associated with increased swelling in both lower extremities and he has been checking his weight and regular basis and he noticed a sudden increase in his weight over the last 48 hours he was not catching his breath without any chest pain patient troponin was slightly elevated he was admitted to the hospital for non-ST elevation GA however because of the concern of requiring more oxygen along with the cough patient was admitted to the hospital under the droplet precautions influenza A and B will be obtained as well as COVID-19 will be obtained, pulmonary and cardiology consult was obtained. 08/30: Patient sitting up in bed, appears a bit drowsy in the morning he put his oxygen up to 8 L per nasal cannula on his own and he stated that he is having trouble with that he discuss that with his vinyl flooring installer in the past, I advised him to cut down the oxygen level to keep saturation between 90-93% at this point but he refused, he would be seen in consultation by nephrology due to his acute kidney injury as his creatinine jumped to 0.07 from 1.67, his diuretics initially was stopped then he was restarted BiPAP nephrology at 80 mg IV push every 12 hours, we discontinued his Entresto and spironolactone, monitor the patient blood pressure very closely discontinued. As well, keep his blood pressure greater than 120 systolic at all the time. We'll repeat his labs in the morning. 08/31: Patient has been afebrile, heart rate 76, blood pressure 82/47, a flex 100% on 6 L nasal cannula. Repeat blood work reveals WBC 9.8, hemoglobin 9.1, platelet count 145. Sodium 132, potassium 4.9, chloride 89, CO2 38, BUN 79, creatinine 1.63. Blood sugar 244. Covid 19 remains pending. Blood culture is showing Staphylococcus aureus. Patient is seen today resting in bed. Appears to be comfortable at rest. He continues to have lower extremity edema. He is diuresing well with good urine output. Nephrology is recommended Lasix 80 mg twice daily. 09/01: COVID-19 testing came back negative. Droplet isolation discontinued. Patient is afebrile, heart rate 82. Blood pressure currently 100/60, pulse ox 94% on 6 L nasal cannula. Repeat blood work reveals sodium 132, potassium 5.4, chloride 91, CO2 30, BUN 89, creatinine 1.75. Dr. Magana is planning for another day of Lasix [address] MYRA Marroquin recommends continuing the current medications. Patient has had low blood pressure during the night and yesterday. Entresto will be discontinued. His Whitlock catheter and with good urine output. He continues to have lower extremity edema. He denies having any blood in the stools, no gastric reflux. Because blood sugars have been elevated, hemoglobin A1c will be checked. NovoLog scale added. 09/02: Patient noted to have positive blood culture with MSSA. Rocephin will be started and consult with Dr. Ochoa. Echocardiogram will be ordered to assess for vegetation. Consult added for registered dietitian regarding heart failure diet and weight loss. Patient to be on a low-salt diet and 50 ounce fluid restriction per day. Cardiology was added in Zaroxolyn and IV Lasix changed to oral 80 mg twice daily. 09/03: The patient was seen by Dr. Magana this morning and metolazone has been discontinued. Patient continued on Lasix 80 mg oral twice daily. Patient is diuresing well with mildly improved lower extremity edema. Whitlock cath remains in place. He is on fluid restriction of 15 ounces. ULICES hose will be ordered. He denies having any fever or chills, no myalgias. He has had a bowel movement this morning which was normal, no blood or tightness. Patient states he slept well last night. Chest x-ray this morning reveals redemonstration of right hemidiaphragm elevation could relate to paralysis. Strand-like bibasilar atelectasis. Echocardiogram reveals EF of 20-25%, moderate concentric left ventricular hypertrophy with severe global hypokinesia of the LV. Moderate mitral regurgitation, mild tricuspid regurgitation, no pulmonary hypertension. Cannot rule out vegetation. Patient has been seen by Dr. Ochoa and antibiotics changed to Kefzol and recommends JOVANA. Discussed with cardiology and they will plan to schedule the patient. Repeat blood culture has been obtained. 09/04: Prior to JOVANA, patient was complaining of nausea for which Zofran was given. Patient went for the JOVANA and developed significant shortness of breath and was anxious and JOVANA was postponed. This will most likely be rescheduled for Sunday. Dr. Magana is recommended continuing Lasix 80 mg twice daily. Repeat lab work reveals sodium 133, potassium 4.6, chloride 85, CO2 35, BUN 62, creatinine 1.56. Blood sugars running between 115 and 245. Repeat blood cultures showing no growth at 24 hours from both September 02 and September 0309/05: Today, patient states that his breathing events much better. He is currently on Lasix 40 mg oral twice daily. Diamox was started this morning. He has good output from Whitlock catheter which will be discontinued and post void residual to be checked. Patient has decreased edema to the lower extremities. Patient states that he is anxious to go home and requested to go home today. We are currently waiting for JOVANA to be rescheduled for Sunday and then a PICC line placed as well for bacteremia. Patient has started using rubber bands to exercise in the room. Patient is afebrile, heart rate 65, blood pressure 99/62, pulse ox 91% on 5 L nasal cannula. Repeat blood work reveals sodium 131, potassium 3.5, chloride 78, CO2 44, BUN 76 and creatinine 1.8. Blood sugars running between 130 and 216. 09/06: Patient denies any new complaints today. States he is feeling okay. Repeat blood work reveals sodium 130, potassium 3.5, chloride 82, CO2 38, BUN 85 and creatinine 2.62, blood sugar 120. Blood sugar sugars up and running between 100 630. Magnesium 2.4. Diamox has been discontinued due to hyponatremia. Dr. Magana was held today's dose of Lasix and replace potassium. CAT scan of the chest without contrast revealed bullous emphysema. Mild atelectasis adjacent to major fissures bilaterally. No definite pneumonia. Incentive spirometry has been added. Patient is very anxious already regarding JOVANA scheduled for t omorrow. He does have Xanax available but we will order a one-time dose of Xanax 0.5 to be given 2 hours prior to procedure. Anticipate he will be ready for discharge tomorrow after midline/PICC and JOVANA are completed. Dr. Ochoa is managing antibiotics. He remains on Kefzol. 09/07: JOVANA revealed severe impaired left ventricular systolic function, mildly dilated left atrium, aortic sclerosis with no evidence of stenosis, mitral annular calcification, moderate mitral with mild to moderate tricuspid regurgitation. No shunting. No evidence of vegetation. Mild atherosclerotic changes of the descending thoracic aorta. Patient had PICC line placed today. We are planning for discharge home today once antibiotics of been arranged. 09/08: No new complaints from the patient. He is anxious to be discharged home. We are currently waiting insurance authorization for daptomycin which may take up to 72 hours. At this time, patient is willing to do antibiotics at home. Prescription has been provided to the piano case and bench assembler and arrangements will be made for home IV antibiotics. Patient will be discharged home today once all arrangements are completed. Dr. Goldstein was clarified Lasix dosing for home at 40 mg once daily for 2 days and then 40 mg twice daily. Discharge diagnoses: 1. Acute on chronic hypoxemic respiratory failure due to acute on chronic systolic heart failure, COPD. Acute coronary syndrome ruled out by cardiology. 2. Coronary artery disease status post coronary artery bypass graft with PCI and ischemic cardiomyopathy post AICD. 3. COPD without exacerbation. 4. Hypertension and hypertensive cardiovascular disease. 5. Hyperlipidemia. 6. Acute kidney injury secondary to diuretics as well as low blood flow to the kidney. 7. History of tobacco use and dependence. 8. Chronic pain syndrome. 9. MSSA bacteremia. Discharge plan: home Impression and plan of care have been directed as dictated by the signing physician. Isabelle Andersen nurse practitioner acting as scribe for signing physician. Patient Condition at Discharge: Good Plan - Discharge Summary Discharge Rx Participant: Yes New Discharge Prescriptions: New Carvedilol [Coreg] 3.125 mg PO AC-BID #60 tab Cefazolin Sodium/D5w [Kefzol 2 Gm/D5w 100 ml] 2 gm IVPB Q8H #24 ml Continue Atorvastatin [Lipitor] 40 mg PO DAILY #30 tab Nitroglycerin Sl Tabs [Nitrostat] 0.4 mg SUBLINGUAL Q5M PRN #25 tab PRN Reason: Chest Pain Nicotine 21Mg/24Hr Patch [Habitrol] 1 patch TRANSDERM DAILY #30 patch Montelukast [Singulair] 10 mg PO HS #30 tab Ipratropium/Albuterol Sulfate [Combivent Respimat Inhaler] 2 puff INHALATION RT-BID Albuterol Inhaler (Bulk) [Ventolin Hfa Inhaler (Bulk)] 1 - 2 puff INHALATION RT-QID PRN PRN Reason: Shortness Of Breath Methadone HCl [Methadone Intensol] 115 mg PO DAILY Multivitamins, Thera [Multivitamin (formulary)] 1 tab PO DAILY Oxymetazoline 0.05% Nasl [place] [Afrin 0.05% Nasal [place]] 1 spray EA NOSTRIL DAILY PRN PRN Reason: Nasal Congestion Ezetimibe [Zetia] 10 mg PO DAILY Cetirizine HCl [Zyrtec] 10 mg PO DAILY Fluticasone Propion/Salmeterol [Wixela 250-50 Inhub] 1 puff INHALATION RT-BID Ipratropium-Albuterol Nebulize [Duoneb 0.5 mg-3 mg/3 ml Soln] 3 ml INHALATION RT-Q4H PRN PRN Reason: Shortness Of Breath Benzocaine/Menthol Lozeng [Cepacol lozenge] 1 lozenge MUCOUS MEM Q4HR PRN PRN Reason: Cough Changed predniSONE [Deltasone] 10 mg PO BID #0 Furosemide [Lasix] 40 mg PO BID #60 tab Discontinued Spironolactone [Aldactone] 25 mg PO DAILY #30 tab Sacubitril/Valsartan [Entresto 49 mg-51 mg Tablet] 1 tab PO BID Carvedilol [Coreg] 6.25 mg PO BID Discharge Medication List Atorvastatin [Lipitor] 40 mg PO DAILY #30 tab 08/31/16 [Rx] Nitroglycerin Sl Tabs [Nitrostat] 0.4 mg SUBLINGUAL Q5M PRN #25 tab 09/24/18 [Rx] Montelukast [Singulair] 10 mg PO HS #30 tab 09/27/18 [Rx] Nicotine 21Mg/24Hr Patch [Habitrol] 1 patch TRANSDERM DAILY #30 patch 09/27/18 [Rx] Ipratropium/Albuterol Sulfate [Combivent Respimat Inhaler] 2 puff INHALATION RT- BID 12/04/18 [History] Albuterol Inhaler (Bulk) [Ventolin Hfa Inhaler (Bulk)] 1 - 2 puff INHALATION RT- QID PRN 12/25/18 [History] Methadone HCl [Methadone Intensol] 115 mg PO DAILY 02/09/19 [History] Multivitamins, Thera [Multivitamin (formulary)] 1 tab PO DAILY 04/22/19 [History] Oxymetazoline 0.05% Nasl [place] [Afrin 0.05% Nasal [place]] 1 spray EA NOSTRIL DAILY PRN 04/22/19 [History] Benzocaine/Menthol Lozeng [Cepacol lozenge] 1 lozenge MUCOUS MEM Q4HR PRN 08/30/19 [History] Cetirizine HCl [Zyrtec] 10 mg PO DAILY 08/30/19 [History] Ezetimibe [Zetia] 10 mg PO DAILY 08/30/19 [History] Fluticasone Propion/Salmeterol [Wixela 250-50 Inhub] 1 puff INHALATION RT-BID 08/30/19 [History] Ipratropium-Albuterol Nebulize [Duoneb 0.5 mg-3 mg/3 ml Soln] 3 ml INHALATION RT-Q4H PRN 08/30/19 [History] Carvedilol [Coreg] 3.125 mg PO AC-BID #60 tab 09/08/19 [Rx] Furosemide [Lasix] 40 mg PO BID #60 tab 09/08/19 [Rx] predniSONE [Deltasone] 10 mg PO BID #0 09/08/19 [Rx] Cefazolin Sodium/D5w [Kefzol 2 Gm/D5w 100 ml] 2 gm IVPB Q8H #24 ml 09/09/19 [Rx] Follow up Appointment(s)/Referral(s): Elsy Ch MD [STAFF PHYSICIAN] - 09/15/19 3:30 pm (Sunday) Jame Bautista MD [Primary Care Provider] - 09/15/19 11:00 am (Sunday) Jose L Gong MD [STAFF PHYSICIAN] - 09/19/19 12:00 pm (Sunday -telephone appointment) Thien Magana DO [STAFF PHYSICIAN] - 2 Weeks (Spoke to receptionist nurse. Office to call with appointment time) Kj Ochoa MD [STAFF PHYSICIAN] - 09/29/19 2:00 pm (Sunday) Ambulatory/Diagnostic Orders: Basic Metabolic Panel [LAB.AMB] Location: None Selected Complete Blood Count w/diff [LAB.AMB] Location: None Selected Patient Instructions/Handouts: Transesophageal Echocardiogram (DC), How to Stop Smoking (DC), Bacteremia (DC) Activity/Diet/Wound Care/Special Instructions: Weigh yourself daily and call nephrology office if weight gain more than 2-3 pounds overnight or has worsening swelling. Discharge Disposition: HOME WITH HOME HEALTH SERVICES
--- NOTE | 2019-09-08 15:09 | P.PN ---
Subjective Progress Note Date: 09/08/19 Principal diagnosis: Resume over 19 infection, coronary artery disease, cardiomyopathy with chronic systolic failure status post AICD, chronic persistent asthma of severe category, COPD, hypertension hypertensive cardiovascular disease, dyslipidemia, acute renal failure, smoking and nicotine use, chronic pain syndrome, generalized anxiety disorder 09/08/2019, patient seen and evaluated examined respiratory status remains stable has been intermittently 4-6 L oxygen oxygen saturation are 94-96%, denies any chest pain, patient has a PICC line, patient is set for long-term anti biotics for 6 weeks, repeat blood cultures have been pending ID service has been following stable from pulmonary standpoint for discharge 09/04/2019, patient seen eval examined during the rounds her respiratory status fairly stable on remains on 6 L nasal cannula oxygen saturation 96-98% breathing comfortably is still of intermittent cough and congestion with respiratory status improved, one of the blood culture came back positive for gram-positive cocci staph final ID is pending, ID service has evaluated the patient patient is on cefazolin, source is not clear, covid 19 is negative 09/01/2019, patient seen and evaluated examined during the rounds labs reviewed medications reviewed, patient has been doing well denies any chest pain breathing comfortably intermittent occasional dry cough is present no fever is present, patient is afebrile with temperature of 98, blood pressure is marginal but stable, patient on 6 L oxygen 100%, last set of blood pressure was 82/47 heart rate is 76, last chest x-ray stable with elevated right hemidiaphragm, no acute infiltrate identified chronic COPD-like changes Objective - Vital Signs Vital signs: Vital Signs Temp 97.5 F L 09/08/19 12:00 Pulse 82 09/08/19 12:00 Resp 26 H 09/08/19 12:00 BP 123/76 09/08/19 12:00 Pulse Ox 95 09/08/19 12:00 Intake & Output 09/07/19 09/08/19 09/08/19 18:59 06:59 18:59 Intake Total 720 390 Output Total 1350 Balance 720 -1350 390 Weight 86.9 kg Intake: IV 50 Oral 720 340 Output: Urine 1350 Other: Voiding Method Urinal Urinal # Voids 2 2 - Exam HEENT: Head is atraumatic, normal cephalic, pupils were equal round reactive to light and accommodation, extraocular muscle movement were intact, mucous membranes of mouth is dry. Neck: Supple, no JVP. Chest: Decreased breath sound at bases, few rhonchi, minimal expiratory wheezes, minimal intercostal retraction, there is an AICD located in the left upper precordium. Heart: First heart sound is depressed, second heart sounds normal, there is systolic ejection murmur 2/6 located in the left sternal border, there is AICD in the left upper precordium Abdomen: Soft, nontender, nondistended, positive bowel sounds. Extremities: Trace edema, no calf tenderness, dorsalis pedis +1 bilaterally. Neurologic examination: Patient is awake alert and oriented 3, cranial nerves II-12 appear grossly intact, muscle power 4 out of 5 in upper and lower extremity disease bilaterally. - Labs CBC & Chem 7: 09/04/19 07:04 09/08/19 05:00 Labs: Abnormal Lab Results - Last 24 Hours (Table) 09/07/19 09/07/19 09/08/19 Range/Units 16:37 20:21 05:00 ESR (0-15) mm/hr Sodium 131 L (137-145) mmol/L Chloride 86 L (98-107) mmol/L Carbon Dioxide 37 H (22-30) mmol/L BUN 72 H (9-20) mg/dL Creatinine 1.74 H (0.66-1.25) mg/dL POC Glucose (mg/dL) 166 H 192 H (75-99) mg/dL 09/08/19 09/08/19 09/08/19 Range/Units 05:00 05:34 11:22 ESR 21 H (0-15) mm/hr Sodium (137-145) mmol/L Chloride (98-107) mmol/L Carbon Dioxide (22-30) mmol/L BUN (9-20) mg/dL Creatinine (0.66-1.25) mg/dL POC Glucose (mg/dL) 121 H 261 H (75-99) mg/dL Microbiology - Last 24 Hours (Table) 09/03/19 10:49 Blood Culture - Preliminary Blood No Growth after 120 hours 09/04/19 07:04 Blood Culture - Preliminary Blood No Growth after 96 hours Assessment and Plan Assessment: Bacteremia with MSSA source not clear Acute on chronic hypoxic respiratory failure due to likely component of heart failure versus COPD, patient however back on baseline oxygen 6 L is being continued on home medications Coronary artery disease Severe COPD prednisone and oxygen dependent Acute exacerbation of CHF/acute on chronic systolic heart failure Testing negative covid-19 infection Acute renal failure due to hypertension gently being rehydrated and renal function monitored symptoms have improved after Whitlock's catheter Dyslipidemia Chronic tobacco use Chronic persistent asthma of severe category with overlap of severe COPD Plan: Continue ceftezole and further workup and evaluation by infectious disease services pending Repeat blood culture and echocardiogram reviewed Overall plan is continue supplemental oxygen with 6 L which is his baseline, Continue bronchodilator Increase activity as tolerated Continue supportive care with bronchodilator and maintenance dose of prednisone Agree with discharge planning follow-up in outpatient basis Time with Patient: Greater than 30
[2019-09-08] MEDS: ALPRAZolam 0.25 MG TAB PO PRN ×2 (15:58→21:04)
[2019-09-08 17:05] LABS: Glucose,Whole Blood 195 mg/dL (75-99)
[2019-09-08 20:12] LABS: Glucose,Whole Blood 113 mg/dL (75-99)
[2019-09-08] MEDS: MELATONIN 3 MG TABLET PO SCH (20:58)
[2019-09-08] MEDS: MONTELUKAST 10 MG TAB PO SCH (20:58)
--- NOTE | 2019-09-08 23:22 | PN ---
PROGRESS NOTE DATE OF SERVICE: 09/08/2019 REASON FOR FOLLOWUP: MSSA bacteremia. INTERVAL HISTORY: The patient is currently afebrile. The patient has been breathing comfortably. The patient did have a JOVANA completed this morning. It was negative for any vegetation. The patient was slightly sleepy and lethargic post procedure. No nausea, vomiting or any diarrhea has been reported. PHYSICAL EXAMINATION: Blood pressure 123/82 with a pulse of 75, temperature 98.2. He is 97% on 5 L nasal cannula. General description is a middle-aged male lying in bed in no distress. RESPIRATORY SYSTEM: Unlabored breathing with decreased breath sounds at the base. No wheeze. HEART: S1, S2. Regular rate and rhythm. ABDOMEN: Soft. No tenderness. LABS: Sedimentation rate of 21. Creatinine is down to 1.74. Blood culture repeat has been negative. DIAGNOSTIC IMPRESSION AND PLAN: Patient with methicillin-susceptible Staphylococcus aeruginosa bacteremia in this patient with no clinical obvious focus with a transesophageal echocardiogram negative and CT of the chest negative for any pneumonia. Patient is currently covered with cefazolin 2 grams q.8 hours. He will need a total of 2 weeks of antibiotics from his negative blood culture. Currently waiting for outpatient antibiotic arrangements before discharge. Monitor clinical course closely. MMODL / IJN: [id number] /
[2019-09-09 06:21] LABS: Glucose,Whole Blood 185 mg/dL (75-99)
[2019-09-09] MEDS: CARVEDILOL 3.125 MG TAB PO SCH (06:23)
[2019-09-09] MEDS: INSULIN ASPART (NovoLOG) 100 UNIT/ML VIAL SQ SCH ×2 (06:23→12:36)
[2019-09-09] MEDS: ALPRAZolam 0.25 MG TAB PO PRN (06:31)
[2019-09-09] MEDS: METHADONE 10 MG TAB PO SCH (08:11)
[2019-09-09] MEDS: SYMBICORT 80-4.5 MCG INHALER (MHU) INHALATION SCH (08:11)
[2019-09-09] MEDS: MULTIVITAMINS, THERA 1 EACH TAB PO SCH (08:11)
[2019-09-09] MEDS: HEPARIN SODIUM,PORCINE 5,000 UNIT/ML 1 ML VIAL SQ SCH (08:11)
[2019-09-09] MEDS: EZETIMIBE 10 MG TAB PO SCH (08:12)
[2019-09-09] MEDS: predniSONE 10 MG TAB PO SCH (08:12)
[2019-09-09] MEDS: METHADONE 5 MG TAB PO SCH (08:12)
[2019-09-09] MEDS: ATORVASTATIN 40 MG TAB PO SCH (08:12)
--- NOTE | 2019-09-09 09:20 | P.PN ---
Subjective Progress Note Date: 09/08/19 This is a 58-year-old male patient of Drs. Bautista, Jing and Farideh with past medical history of coronary artery disease and status post coronary artery bypass grafting and previous angioplasty and stenting so that, heart catheterization in September 2018 revealed severe stenosis of the LAD with occluded first obtuse marginal branch, chronically occluded mid right coronary artery, mild to moderate disease of the proximal left circumflex, patent JACKSON to LAD, patent saphenous vein graft to the diagonal branch and to the right PDA, severely impaired left ventricular systolic function, ischemic cardiomyopathy EF of 20% status post AICD, chronic systolic heart failure as well as chronic obstructive pulmonary disease, chronic hypoxic respiratory failure on home O2, hypertension, hyperlipidemia, chronic pain syndrome on methadone, tobacco use and dependencequit September 2018, patient presented to the emergency department at [facility] with increased shortness breath associated with increased swelling in both lower extremities and he has been checking his weight and regular basis and he noticed a sudden increase in his weight over the last 48 hours he was not catching his breath without any chest pain patient troponin was slightly elevated he was admitted to the hospital for non-ST elevation MD however because of the concern of requiring more oxygen along with the cough patient was admitted to the hospital under the droplet precautions influenza A and B will be obtained as well as COVID-19 will be obtained, pulmonary and cardiology consult was obtained. 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 As well, keep his blood pressure greater than 120 systolic at all the time. We'll repeat his labs in the morning. 08/31: Patient has been afebrile, heart rate 76, blood pressure 82/47, a flex 100% on 6 L nasal cannula. Repeat blood work reveals WBC 9.8, hemoglobin 9.1, platelet count 145. Sodium 132, potassium 4.9, chloride 89, CO2 38, BUN 79, creatinine 1.63. Blood sugar 244. Covid 19 remains pending. Blood culture is showing Staphylococcus aureus. Patient is seen today resting in bed. Appears to be comfortable at rest. He continues to have lower extremity edema. He is diuresing well with good urine output. Nephrology is recommended Lasix 80 mg twice daily. 09/01: COVID-19 testing came back negative. Droplet isolation discontinued. Patient is afebrile, heart rate 82. Blood pressure currently 100/60, pulse ox 94% on 6 L nasal cannula. Repeat blood work reveals sodium 132, potassium 5.4, chloride 91, CO2 30, BUN 89, creatinine 1.75. Dr. Magana is planning for another day of Lasix [address] MYRA Marroquin recommends continuing the current medications. Patient has had low blood pressure during the night and yesterday. Entresto will be discontinued. His Whitlock catheter and with good urine output. He continues to have lower extremity edema. He denies having any blood in the stools, no gastric reflux. Because blood sugars have been elevated, hemoglobin A1c will be checked. NovoLog scale added. 09/02: Patient noted to have positive blood culture with MSSA. Rocephin will be started and consult with Dr. Ochoa. Echocardiogram will be ordered to assess for vegetation. Consult added for registered dietitian regarding heart failure diet and weight loss. Patient to be on a low-salt diet and 50 ounce fluid restriction per day. Cardiology was added in Zaroxolyn and IV Lasix changed to oral 80 mg twice daily. 09/03: The patient was seen by Dr. Magana this morning and metolazone has been discontinued. Patient continued on Lasix 80 mg oral twice daily. Patient is diuresing well with mildly improved lower extremity edema. Whitlock cath remains in place. He is on fluid restriction of 15 ounces. ULICES hose will be ordered. He denies having any fever or chills, no myalgias. He has had a bowel movement this morning which was normal, no blood or tightness. Patient states he slept well last night. Chest x-ray this morning reveals redemonstration of right hemidiaphragm elevation could relate to paralysis. Strand-like bibasilar atelectasis. Echocardiogram reveals EF of 20-25%, moderate concentric left ventricular hypertrophy with severe global hypokinesia of the LV. Moderate mitral regurgitation, mild tricuspid regurgitation, no pulmonary hypertension. Cannot rule out vegetation. Patient has been seen by Dr. Ochoa and antibiotics changed to Kefzol and recommends JOVANA. Discussed with cardiology and they will plan to schedule the patient. Repeat blood culture has been obtained. 09/04: Prior to JOVANA, patient was complaining of nausea for which Zofran was given. Patient went for the JOVANA and developed significant shortness of breath and was anxious and JOVANA was postponed. This will most likely be rescheduled for Sunday. Dr. Magana is recommended continuing Lasix 80 mg twice daily. Repeat lab work reveals sodium 133, potassium 4.6, chloride 85, CO2 35, BUN 62, creatinine 1.56. Blood sugars running between 115 and 245. Repeat blood cultures showing no growth at 24 hours from both September 02 and September 0309/05: Today, patient states that his breathing events much better. He is currently on Lasix 40 mg oral twice daily. Diamox was started this morning. He has good output from Whitlock catheter which will be discontinued and post void residual to be checked. Patient has decreased edema to the lower extremities. Patient states that he is anxious to go home and requested to go home today. We are currently waiting for JOVANA to be rescheduled for Sunday and then a PICC line placed as well for bacteremia. Patient has started using rubber bands to exercise in the room. Patient is afebrile, heart rate 65, blood pressure 99/62, pulse ox 91% on 5 L nasal cannula. Repeat blood work reveals sodium 131, potassium 3.5, chloride 78, CO2 44, BUN 76 and creatinine 1.8. Blood sugars running between 130 and 216. 09/06: Patient denies any new complaints today. States he is feeling okay. Repeat blood work reveals sodium 130, potassium 3.5, chloride 82, CO2 38, BUN 85 and creatinine 2.62, blood sugar 120. Blood sugar sugars up and running between 100 630. Magnesium 2.4. Diamox has been discontinued due to hyponatremia. Dr. Magana was held today's dose of Lasix and replace potassium. CAT scan of the chest without contrast revealed bullous emphysema. Mild atelectasis adjacent to major fissures bilaterally. No definite pneumonia. Incentive spirometry has been added. Patient is very anxious already regarding JOVANA scheduled for tomorrow. He does have Xanax available but we will order a one-time dose of Xanax 0.5 to be given 2 hours prior to procedure. Anticipate he will be ready for discharge tomorrow after midline/PICC and JOVANA are completed. Dr. Ochoa is m anaging antibiotics. He remains on Kefzol. 09/07: JOVANA revealed severe impaired left ventricular systolic function, mildly dilated left atrium, aortic sclerosis with no evidence of stenosis, mitral hayley ular calcification, moderate mitral with mild to moderate tricuspid regurgitation. No shunting. No evidence of vegetation. Mild atherosclerotic changes of the descending thoracic aorta. Patient had PICC line placed today. We are planning for discharge home today once antibiotics of been arranged. Objective - Vital Signs Vital signs: Vital Signs Temp 97.9 F 09/09/19 08:00 Pulse 78 09/09/19 08:00 Resp 18 09/09/19 08:00 BP 131/82 09/09/19 08:00 Pulse Ox 91 L 09/09/19 08:00 Intake & Output 09/08/19 09/09/19 09/09/19 18:59 06:59 18:59 Intake Total 740 240 Output Total 1350 1500 Balance -610 -1500 240 Weight 91.2 kg Intake: IV 50 Oral 690 240 Output: Urine 1350 1500 Other: Voiding Method Urinal # Voids 1 - Exam Review of Systems Constitutional: Denies chills, denies fever, Denies lethargy, Denies weakness Ears, nose, mouth and throat: Denies dental pain, Denies dysphagia, Denies neck lump, Denies sore throat Cardiovascular: Reports decreased exercise tolerance, Reports dyspnea on exertion, denies shortness of breath, Denies chest pain, Denies lightheadedness, Denies rapid heart beat, Denies syncope Respiratory: Reports cough, denies home oxygen, Denies congestion, Denies cough with sputum, Denies sleep apnea, Denies snoring, Denies wheezing, denies shortness of breath Gastrointestinal: Denies abdominal pain, Denies bloating, Denies BRBPR, Denies excessive gas, Denies heartburn, Denies melena, reports nausea, Denies vomiting Genitourinary: Reports nocturia, Denies dysuria, Whitlock in place with clear anayeli urine Musculoskeletal: Denies myalgias Musculoskeletal: absent: ankle pain, ankle stiffness, ankle swelling, elbow pain, elbow stiffness, elbow swelling, foot pain, foot stiffness, foot swelling, hand pain, hand stiffness, hand swelling, hip pain, hip stiffness, hip swelling, knee pain, knee stiffness, knee swelling, shoulder pain, shoulder stiffness, shoulder swelling, wrist pain, wrist stiffness, wrist swelling Integumentary: Denies pruritus, Denies rash, denies wounds Neurological: Denies numbness, Denies weakness Psychiatric: Reports anxiety, Denies depression Endocrine: Denies fatigue, Denies weight change Physical Examination: GEN: This is a 58-year-old male. He is ambulating in his bed and appears to be comfortable. No respiratory distress noted at rest. HEENT: Head is atraumatic, normal cephalic, pupils were equal round reactive to light and accommodation, extraocular muscle movement were intact, mucous m embranes of mouth is dry. Neck: Supple, no JVP. Chest: Decreased breath sound at bases, no intercostal retraction, there is an AICD located in the left upper precordium. Heart: First heart sound is depressed, second heart sounds normal, there is systolic ejection murmur 2/6 located in the left sternal border, there is AICD in the left upper precordium Abdomen: Soft, nontender, nondistended, positive bowel sounds. Whitlock catheter draining clear anayeli urine. Extremities: no edema, no calf tenderness, dorsalis pedis +1 bilaterally. Neurologic examination: Patient is awake alert and oriented 3, cranial nerves II-12 appear grossly intact. - Labs CBC & Chem 7: 09/04/19 07:04 09/08/19 05:00 Labs: Abnormal Lab Results - Last 24 Hours (Table) 09/08/19 09/08/19 09/08/19 Range/Units 11:22 17:03 20:10 POC Glucose (mg/dL) 261 H 195 H 113 H (75-99) mg/dL 09/09/19 Range/Units 06:20 POC Glucose (mg/dL) 185 H (75-99) mg/dL Microbiology - Last 24 Hours (Table) 09/03/19 10:49 Blood Culture - Preliminary Blood No Growth after 120 hours 09/04/19 07:04 Blood Culture - Preliminary Blood No Growth after 96 hours Assessment and Plan Plan: 1. Acute on chronic hypoxemic respiratory failure due to acute on chronic systolic heart failure, COPD. Acute coronary syndrome ruled out by cardiology. Continue Lasix 40 mg oral twice daily, Zaroxolyn discontinued. Continue Lipitor 40 mg orally once every day, Coreg 3.125 mg orally twice every day, subcutaneous heparin. Pulmonary and cardiology consults appreciated. Diamox discontinued Continue Symbicort 2. Coronary artery disease status post coronary artery bypass graft with PCI and ischemic cardiomyopathy post AICD. Discontinue spironolactone. Discontinue Entresto. Continue Lasix at 80 mg po every 12 hours. Monitor the patient input and output and daily weight bladder scan will be done to check for postvoid retention, if the post void residual greater than [address] 3. COPD without exacerbation. Continue DuoNeb 3 mg nebulization 4 times every day, continue prednisone 10 mg orally twice a day, continue Symbicort twice e very day. 4. Hypertension and hypertensive cardiovascular disease. Continue patient on carvedilol 3.125 mg orally twice every day. 5. Hyperlipidemia. Continue Lipitor 40 mg orally once every day. 6. Acute kidney injury secondary to diuretics as well as low blood flow to the kidney. Hold Spironolactone. 7. History of tobacco use and dependence. Patient is not smoking at this point. 8. Chronic pain syndrome. Continue patient on methadone. 9. DVT prophylaxis. Continue heparin subcu. 10. GI prophylaxis. Pepcid 20 mg orally once every day. 11. MSSA bacteremia. Consult with Dr. Ochoa appreciated. Patient now on Kefzol 2 g every 8 hours. Repeat blood culture showing no growth. JOVANA and PICC line completed. Waiting for prescriptions from Dr. Ochoa for OP IV antibiotic. Full code. Discharge plan: home Impression and plan of care have been directed as dictated by the signing physician. Isabelle Andersen nurse practitioner acting as scribe for signing physician.
[2019-09-09 09:52] LABS: Calcium 9.4 mg/dL (8.4-10.2); Potassium 4.3 mmol/L (3.5-5.1)
--- NOTE | 2019-09-09 09:54 | PN ---
PROGRESS NOTE Mr. Goodman has ischemic cardiomyopathy, had a Bi V ICD. He had a PICC line placed and a transesophageal echo performed yesterday. Clinically, he looks better. His Lasix is still being held. We are waiting for the results of his BMP once this becomes available we will decide on a dose of Lasix. Patient can be moved to the medical floor or discharged. He needs to be on IV antibiotics because of Staph aureus bacteremia. Other than optimizing the Lasix dose, no other intervention from a cardiac standpoint. His vitals are stable. There is JVD 1 cm. No carotid bruit. S1, S2 heard normally. Short systolic murmur audible. Lungs revealed decent air entry. Abdomen is soft. Lower extremity edema has almost resolved completely. Patient can be moved to the medical floor after we review the labs and settle on a Lasix dose. MMODL / IJN: [id number] /
[2019-09-09] MEDS: SODIUM CHLORIDE 0.65% NASAL SPRAY 44 ML BTL NASAL SCH (10:20)
[2019-09-09 11:28] LABS: Glucose,Whole Blood 179 mg/dL (75-99)
--- NOTE | 2019-09-09 13:51 | PN ---
PROGRESS NOTE Patient is seen for followup for acute kidney injury on top of chronic kidney disease. He is currently resting comfortably. Patient denies any significant complaints. His renal function continues to improve. Diuretics have been on hold. However, patient has swelling and I will resume his oral Lasix. PHYSICAL EXAMINATION: Today patient is comfortable. Blood pressure is 131/82, heart rate 78 per minute, patient is afebrile. Examination of the heart, S1 and S2. Examination of the lungs, bilateral breath sounds are heard. Abdomen is soft, nontender. Examination of lower extremities shows edema 1+ bilaterally. Chronic skin changes noted. 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 LABS: Show sodium 133, potassium 4.3, BUN 58, creatinine 1.42, calcium 9.4 mg/dL. ASSESSMENT: 1. Acute kidney injury, associated with recent diuresis currently improved. We can resume oral diuretics. 2. Volume overload initially, resume oral diuretics. 3. Congestive heart failure, acute on top of chronic. 4. Cardiomyopathy, ejection fraction less than 20%. 5. Hyponatremia, hypervolemic, now improved. 6. Staph aureus bacteremia, maintained on antibiotics. 7. Hyperkalemia associated with acute kidney injury, use of Entresto now improved. PLAN: Resume oral Lasix, add b.i.d. Follow up as outpatient for CKD. MMODL / IJN: [id number] /
[2019-09-09 14:03] VITALS: BP 134/74; PULSE 75; RESP 20; TEMP 97.5
[2019-09-09 14:25] VITALS: BMI 30.5
--- NOTE | 2019-09-09 15:57 | PN ---
PROGRESS NOTE DATE OF SERVICE: 09/09/2019 REASON FOR FOLLOWUP: MSSA bacteremia. INTERVAL HISTORY: The patient is currently afebrile. The patient has been breathing comfortably. The patient denies having any chest pain or shortness of breath or cough. No abdominal pain or diarrhea. PHYSICAL EXAMINATION: Blood pressure is 134/74 with a pulse of 75, temperature 97.5. He is 92% on 5 L nasal cannula. General description is a middle-aged male up in the bed in no distress. RESPIRATORY SYSTEM: Unlabored breathing with decreased intensity of breath sounds. No wheeze. HEART: S1, S2. Regular rate and rhythm. ABDOMEN: Soft. No tenderness. LABS: BUN of 58, creatinine is 1.42. Blood culture repeat has been negative. DIAGNOSTIC IMPRESSION AND PLAN: Patient with methicillin-susceptible Staphylococcus aeruginosa bacteremia in this patient who did have extensive workup with no clear focus of infection. JOVANA was negative. CT chest was negative. Follow-up blood culture negative. To finish therapy with cefazolin 2 grams q.8 hours for 2 weeks from his negative blood culture and close outpatient followup. Continue with supportive care. MMODL / IJN: [id number] / DEBI
[2019-09-09] MEDS ORDERED: FUROSEMIDE 40 MG TAB PO SCH (16:00)
== END 2019-09-09 14:58 | disposition home health service (06) | DRG 291 ==
LOC: EC 03:38 → 3SCARD 07:24
PROVIDERS: ADMIT Internal Medicine; ATTEND Internal Medicine
PROC: 02HV33Z Insertion of Infusion Device into Superior Vena Cava, Percutaneous Approach (ICD-10-PCS; 2019-09-08)
PROC: B24BZZ4 Ultrasonography of Heart with Aorta, Transesophageal (ICD-10-PCS; principal; 2019-09-08 09:00)
DX: I13.0 Hypertensive heart and chronic kidney disease with heart failure and stage 1 through stage 4 chronic kidney disease, or unspecified chronic kidney disease (principal); J96.21 Acute and chronic respiratory failure with hypoxia; I50.23 Acute on chronic systolic (congestive) heart failure; R78.81 Bacteremia; N17.9 Acute kidney failure, unspecified; E87.3 Alkalosis; E87.1 Hypo-osmolality and hyponatremia; F11.20 Opioid dependence, uncomplicated; J45.51 Severe persistent asthma with (acute) exacerbation; J98.11 Atelectasis; J98.6 Disorders of diaphragm; I95.9 Hypotension, unspecified; N18.3 Chronic kidney disease, stage 3 (moderate); I25.5 Ischemic cardiomyopathy; I25.10 Atherosclerotic heart disease of native coronary artery without angina pectoris; E78.5 Hyperlipidemia, unspecified; E87.5 Hyperkalemia; R33.9 Retention of urine, unspecified; J43.9 Emphysema, unspecified; F41.1 Generalized anxiety disorder; Z20.828 Contact with and (suspected) exposure to other viral communicable diseases; G89.4 Chronic pain syndrome; J30.2 Other seasonal allergic rhinitis; F32.9 Major depressive disorder, single episode, unspecified; R11.0 Nausea; I08.1 Rheumatic disorders of both mitral and tricuspid valves; I70.0 Atherosclerosis of aorta; E66.9 Obesity, unspecified; B95.61 Methicillin susceptible Staphylococcus aureus infection as the cause of diseases classified elsewhere; R79.89 Other specified abnormal findings of blood chemistry; T50.1X5A Adverse effect of loop [high-ceiling] diuretics, initial encounter; I25.2 Old myocardial infarction; Z68.30 Body mass index [BMI] 30.0-30.9, adult; Z71.3 Dietary counseling and surveillance; Z79.899 Other long term (current) drug therapy; Z79.52 Long term (current) use of systemic steroids; Z95.1 Presence of aortocoronary bypass graft; Z95.810 Presence of automatic (implantable) cardiac defibrillator; Z98.890 Other specified postprocedural states; Z86.14 Personal history of Methicillin resistant Staphylococcus aureus infection; Z99.81 Dependence on supplemental oxygen; Z87.828 Personal history of other (healed) physical injury and trauma; Z95.5 Presence of coronary angioplasty implant and graft; Z87.891 Personal history of nicotine dependence; Z80.0 Family history of malignant neoplasm of digestive organs; Z80.6 Family history of leukemia
CPT/HCPCS: 36415; 36573; 71045; 71046; 71250; 80048; 80053; 80061; 81003; 83036; 83605; 83735; 83880; 84484; 85025; 85379; 85610; 85652; 85730; 86140; 87040; 87077; 87186; 87205; 87502; 93005; 93306; 93312; 93320; 93325; 94640; 94760; 96365; 96376; 99285

== ENCOUNTER 2019-09-22 20:57 | Inpatient (IN) | payer OTHER ==
[2019-09-22] MEDS ORDERED: FUROSEMIDE 10 MG/ML 4 ML VIAL IV STA ×2 (21:31→22:40)
[2019-09-22 21:52] LABS: Albumin 4.1 g/dL (3.5-5.0); Magnesium 1.9 mg/dL (1.6-2.3); Potassium 3.7 mmol/L (3.5-5.1); Total Bilirubin 0.8 mg/dL (0.2-1.3); Total Protein 6.5 g/dL (6.3-8.2)
[2019-09-22 21:53] LABS: Anisocytosis Slight; Basophils % (A) 0 %; Eosinophils % (A) 1 %; HCT 27.9 % (39.0-53.0); HGB 8.9 gm/dL (13.0-17.5); Lymphocytes # (A) 0.6 k/uL (1.0-4.8); Lymphocytes % (A) 10 %; MCH 31.7 pg (25.0-35.0); MCHC 31.9 g/dL (31.0-37.0); MCV 99.6 fL (80.0-100.0); Macrocytosis Slight; Mean Platelet Volume 7.2; Monocytes # (A) 0.4 k/uL (0-1.0); Monocytes % (A) 7 %; Neutrophils # (A) 5.1 k/uL (1.3-7.7); Neutrophils % (A) 80 %; Platelet Count 226 k/uL (150-450); RDW 16.3 % (11.5-15.5); WBC 6.4 k/uL (3.8-10.6)
[2019-09-22 22:07] LABS: Prothrombin Time 10.5 sec (9.0-12.0)
[2019-09-22 22:13] LABS: D-Dimer 0.6 mg/L FEU (<0.60)
--- NOTE | 2019-09-22 22:15 | XR ---
EXAMINATION TYPE: XR chest 1V portable DATE OF EXAM: 09/22/2019 COMPARISON: September 04, 2019 HISTORY: Short of breath TECHNIQUE: FINDINGS: There is elevated right diaphragm. There is no heart failure. There is a left axillary pace maker. There are sternal wires. Lungs appear clear of consolidation. IMPRESSION: There is chronic elevation of the right diaphragm with basilar atelectasis unchanged. No heart failure seen.
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
[2019-09-22] MEDS ORDERED: NITROGLYCERIN SL TABS 0.4 MG TAB SUBLINGUAL PRN (23:48)
[2019-09-22] MEDS ORDERED: OXYMETAZOLINE 0.05% NASL SPRAY 1 SPRAY BOTTLE EA NOSTRIL PRN (23:48)
[2019-09-22] MEDS ORDERED: BENZOCAINE/MENTHOL LOZENG 1 EACH LOZENGE MUCOUS MEM PRN (23:48)
[2019-09-23] MEDS: FUROSEMIDE 40 MG TAB PO SCH ×2 (00:07→10:24)
[2019-09-23] MEDS: HEPARIN SODIUM,PORCINE 5,000 UNIT/ML 1 ML VIAL SQ SCH ×4 (00:52→23:34)
[2019-09-23] MEDS: CARVEDILOL 3.125 MG TAB PO SCH ×2 (06:39→16:43)
[2019-09-23] MEDS ORDERED: METHADONE PO SCH (09:00)
[2019-09-23] MEDS ORDERED: FUROSEMIDE 40 MG TAB PO SCH (09:00)
[2019-09-23] MEDS: FLUTICASONE PROPION INHALATION SCH ×2 (09:40→21:31)
[2019-09-23] MEDS: SALMETEROL INHALATION SCH ×2 (09:40→21:31)
[2019-09-23] MEDS: MULTIVITAMINS, THERA 1 EACH TAB PO SCH (09:44)
[2019-09-23] MEDS: NICOTINE 21MG/24HR PATCH TRANSDERM SCH (09:45)
[2019-09-23] MEDS: predniSONE 20 MG TAB PO SCH ×2 (09:45→20:36)
[2019-09-23] MEDS: EZETIMIBE 10 MG TAB PO SCH (09:45)
[2019-09-23] MEDS: ATORVASTATIN 40 MG TAB PO SCH (09:45)
[2019-09-23] MEDS: LORATADINE 10 MG TAB PO SCH (09:45)
[2019-09-23] MEDS: METHADONE 10 MG TAB PO SCH (09:57)
[2019-09-23] MEDS: METHADONE 5 MG TAB PO SCH (09:58)
--- NOTE | 2019-09-23 11:05 | CONS ---
CONSULTATION Mr. Goodman is a 58-year-old male with known history of severe ischemic cardiomyopathy, status post coronary artery bypass grafting, history of chronic disease who was recently discharged from the hospital after having evidence of infectious process and positive blood culture. During that time, he underwent a transesophageal echocardiogram to rule out endocarditis and his transesophageal echocardiogram showed an ejection fraction 20% to 25% with moderate mitral and mild to moderate tricuspid regurgitation. There was no evidence of vegetation. After he went home, he became more short of breath with worsening dyspnea and cough. Patient has a known history of chronic obstructive lung disease and history of wheezing in the past. He has prior history of smoking. He has stopped recently. He has underwent cardiac catheterization in September 2018 and was found to have a severe stenosis in the LAD, occluded first obtuse marginal branch, chronically occluded mid RCA with mild to moderate disease in the proximal left circumflex with a patent JACKSON to LAD and patent saphenous vein graft to the diagonal branch and to the right PDA. He denies any further fever or wheezing at home. He denies any palpitations or syncope. He felt nauseated. MEDICATION: At home include nicotine patch, Singulair, methadone, ipratropium, fluticasone, Zetia 10 mg daily, Coreg 3.125 mg twice a day, Lipitor 40 mg daily. REVIEW OF SYSTEMS: RESPIRATORY SYSTEM: He has history of chronic obstructive lung disease and chronic cough and prior history of smoking. GI SYSTEM: No recent GI bleeding, no peptic ulcer disease. SYSTEM: No dysuria or hematuria. NERVOUS SYSTEM: No history of stroke or seizure. PHYSICAL EXAMINATION: He is a 58-year-old male, alert, oriented, in no apparent distress. Blood pressure 125/70 with a heart rate in the 70s. HEAD: Normocephalic. EYES: Sclerae nonicteric. NECK: Unable to evaluate jugular venous pressure. LUNGS: With decreased breath sounds bilaterally. HEART: Regular rate and rhythm, S1, S2. No S3 with systolic murmur, no diastolic murmur, no rub. ABDOMEN: Soft, obese, nontender. EXTREMITIES: + 2 edema bilaterally. LAB DATA: Revealed an NT proBNP of 13,400. Troponin 0.078. BUN and creatinine 44 and 1.62, potassium 3.7, hemoglobin of 8.9. EKG revealed a sinus mechanism with evidence of ICD Bi V pacing. Chest x-ray shows elevation of the hemidiaphragm that was noted in the past. IMPRESSION: 1. Progressive symptoms of dyspnea, probably related to worsening congestive heart failure in a patient with known history of severe ischemic cardiomyopathy. 2. Recent febrile episode. No evidence of fever at this time. 3. Status post coronary artery bypass grafting. 4. Chronic kidney disease. 5. Status post ICD implantation. 6. History of chronic obstructive lung disease. RECOMMENDATION: From the cardiac standpoint, will continue on the present intravenous diuretic. Follow the renal function closely. Continue on his beta taylor. Depending on renal function, the decision will be made to add hydralazine or an KEON inhibitor. Depending on his progress, further recommendation will be made. Thank you for this consult. Will follow with you. REVAL / IJN: [id number] /
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
--- NOTE | 2019-09-23 12:05 | CONS ---
CONSULTATION REASON FOR CONSULT: Renal failure. HISTORY OF PRESENT ILLNESS: The patient is a 58-year-old male with history of chronic kidney disease stage III secondary to nephrosclerosis. Previous creatinine 1.1 on 06/26/2019. Patient also has coronary artery disease, cardiomyopathy, ejection fraction about 20% with history of COPD as well. He was admitted to the hospital with complaints of shortness of breath. No fever, chills, nausea, or vomiting. No abdominal pain. Patient had an episode of acute kidney injury in August when his creatinine was up to 2.07 and potassium 5.7. This had improved. On this admission, patient has a creatinine of 1.6 mg/dL. He is currently being diuresed. Lasix is at 40 mg q.8 hours. He received multiple doses of IV push Lasix yesterday. No fever, chills, nausea, vomiting or abdominal pain. Overall, patient states he is feeling better. PAST MEDICAL HISTORY: CHF, cardiomyopathy, hypertension, CKD, most recently creatinine was about 1.4-1.5 mg/dL, coronary artery disease, history of PR, asthma, hyperlipidemia, history of respiratory failure, chronic low back pain. PAST SURGICAL HISTORY: AICD, coronary artery bypass surgery, cardiac catheterization, coronary stent placement, incisional hernia repair. SOCIAL HISTORY: Patient is a former smoker. No history of drug abuse or alcohol abuse. MEDICATIONS: At home prior to admission included Combivent inhaler, methadone, albuterol, Zyrtec, Zetia, nasal spray, Lipitor, Nitrostat, Singulair, Coreg, Lasix, Deltasone. ALLERGIES: None. REVIEW OF SYSTEMS: As per HPI. Other systems negative. PHYSICAL EXAMINATION: Patient is comfortable, awake, not in any acute distress. Blood pressure is 125/75, heart rate 79 per minute, patient is afebrile. Examination of the heart S1, S2. Examination of the lungs, bilateral breath sounds are heard. Abdomen is soft, nontender, obese. Exam of the lower extremities shows edema 2+ bilaterally. LUG LOADER exam grossly intact. LABS: Show sodium 137, potassium 3.7, chloride 83, CO2 is 47, BUN 44, creatinine 1.62. Troponin 0.078. BNP 37983, hemoglobin 8.9 g/dL. Chest x-ray from this admission showed chronic elevation of the right diaphragm. No major heart failure seen. ASSESSMENT: 1. Acute kidney injury, most likely cardiorenal, currently being diuresed. I will likely decrease the Lasix tomorrow as chest x-ray does not show significant congestive heart failure. 2. Metabolic alkalosis secondary to diuresis. Patient was on 40 mg p.o. b.i.d. of Lasix at home prior to admission. I will add Diamox to help with diuresis given the significant metabolic alkalosis. 3. Chronic kidney disease stage III, previous creatinine as low as 1.1 in June of 2019. However, more recently, staying at about 1.4-1.5 mg/dL. 4. Anemia, no active bleeding noted. Check iron studies. 5. Cardiomyopathy, ejection fraction 20%-25%. PLAN: Check UA. Add Diamox. I will likely decrease Lasix tomorrow. Repeat chest x-ray in a.m. Echocardiogram done last admission shows EF 20% to 25%. Thank you for this consultation. Will continue to follow the patient with you during his hospitalization. MMODL / IJN: [id number] /
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
[2019-09-23] MEDS: IPRATROPIUM-ALBUTEROL 3 ML NEB INHALATION PRN ×2 (13:31→19:44)
[2019-09-23] MEDS: FUROSEMIDE 10 MG/ML 4 ML VIAL IV SCH ×2 (16:43→23:34)
[2019-09-23] MEDS: MONTELUKAST 10 MG TAB PO SCH (20:36)
[2019-09-23] MEDS: ALPRAZolam 0.25 MG TAB PO PRN (23:34)
[2019-09-24 06:08] LABS: Anisocytosis Slight; Basophils % (A) 0 %; Eosinophils # (A) 0.1 k/uL (0-0.7); Eosinophils % (A) 1 %; HGB 9.4 gm/dL (13.0-17.5); Lymphocytes # (A) 0.9 k/uL (1.0-4.8); Lymphocytes % (A) 17 %; MCH 32.7 pg (25.0-35.0); MCHC 32.5 g/dL (31.0-37.0); MCV 100.6 fL (80.0-100.0); Macrocytosis Slight; Monocytes # (A) 0.4 k/uL (0-1.0); Monocytes % (A) 7 %; Neutrophils # (A) 3.8 k/uL (1.3-7.7); Neutrophils % (A) 72 %; Platelet Count 236 k/uL (150-450); RBC 2.88 m/uL (4.30-5.90); RDW 16.3 % (11.5-15.5); WBC 5.3 k/uL (3.8-10.6)
[2019-09-24 06:20] LABS: Albumin 3.8 g/dL (3.5-5.0); Calcium 9.2 mg/dL (8.4-10.2); Potassium 3.3 mmol/L (3.5-5.1); Total Bilirubin 0.7 mg/dL (0.2-1.3); Total Protein 6.4 g/dL (6.3-8.2)
[2019-09-24] MEDS: CARVEDILOL 3.125 MG TAB PO SCH ×2 (06:52→18:25)
[2019-09-24] MEDS: FLUTICASONE PROPION INHALATION SCH (09:27)
[2019-09-24] MEDS: SALMETEROL INHALATION SCH (09:27)
[2019-09-24] MEDS: FUROSEMIDE 10 MG/ML 4 ML VIAL IV SCH ×3 (09:27→23:10)
--- NOTE | 2019-09-24 09:27 | P.PN ---
Subjective Progress Note Date: 09/24/19 Principal diagnosis: Acute on chronic hypoxic respiratory failure Acute systolic heart failure COPD severe Chronic persistent severe asthma Hypertension hypertensive cardiovascular disease Dyslipidemia nicotine abuse Recent history of MSSA bacteremia status post finishing therapy via PICC line Patient is well-known to me for end-stage lung disease secondary severe COPD and also component of chronic persistent severe asthma patient recently has been asked lysis for acute MO patient was discharged earlier the morning of this month, patient was in fact has the appointment with me in telemetry medicine at that time was doing well with his breathing treatment oxygen, in the last to 3 days to let increasing progressive shortness of breath and increasing edema no purulent sputum is present some dry nonproductive cough is present due to increasing swelling came into the hospital for further evaluation, respiratory status stable on 3 L the saturation was 100%, BNP however was over 3000 chest x- ray suggestive of elevated diaphragm baseline ejection fraction is very low patient has AICD, 09/24/2019, patient seen and evaluated examined during the rounds labs reviewed medications reviewed care plan discussed with the primary service at length as well patient is more somnolent today lethargic but arousable, his CO2 is very high is still hypercapnic respiratory failure and severe COPD patient is a candidate for noninvasive ventilation have discussed with him at length he is agreeable for initiation of BiPAP for now we'll start the BiPAP throughout most of the day and will continue use history night and when necessary during day subsequently, Objective - Vital Signs Vital signs: Vital Signs Temp 98.8 F 09/24/19 04:00 Pulse 76 09/24/19 04:00 Resp 18 09/24/19 04:00 BP 108/73 09/24/19 04:00 Pulse Ox 95 09/24/19 04:00 Intake & Output 09/23/19 09/24/19 09/24/19 18:59 06:59 18:59 Intake Total 200 Output Total 500 675 Balance -500 -475 Weight 81 kg 81 kg Intake: IV 20 0.9 20 Oral 180 Output: Urine 500 675 Other: Voiding Method Toilet Toilet Urinal # Voids 1 - Exam - Constitutional General appearance: average body habitus, disheveled, morbidly obese - EENT Eyes: EOMI, PERRLA Ears: bilateral: normal - Neck Neck: normal ROM Thyroid: bilateral: normal size - Respiratory Respiratory: bilateral: diminished, rales - Cardiovascular Rhythm: regular Heart sounds: normal: S1, S2 - Gastrointestinal General gastrointestinal: normal bowel sounds - Neurologic Neurologic: CNII-XII intact - Musculoskeletal Musculoskeletal: gait normal, generalized weakness, strength equal bilaterally - Psychiatric Psychiatric: A&O x's 3, appropriate affect - Labs CBC & Chem 7: 09/24/19 05:09 09/24/19 05:09 Labs: Abnormal Lab Results - Last 24 Hours (Table) 09/24/19 09/24/19 Range/Units 05:09 05:09 RBC 2.88 L (4.30-5.90) m/uL Hgb 9.4 L (13.0-17.5) gm/dL Hct 29.0 L (39.0-53.0) % MCV 100.6 H (80.0-100.0) fL RDW 16.3 H (11.5-15.5) % Lymphocytes # 0.9 L (1.0-4.8) k/uL Potassium 3.3 L (3.5-5.1) mmol/L Chloride 85 L (98-107) mmol/L Carbon Dioxide 42 H* (22-30) mmol/L BUN 31 H (9-20) mg/dL Creatinine 1.50 H (0.66-1.25) mg/dL Assessment and Plan Assessment: Acute on chronic hypoxic and hypercapnic respiratory failure Altered mental status and lethargy due to likely high CO2 Acute systolic heart failure COPD severe Chronic persistent severe asthma Hypertension hypertensive cardiovascular disease Dyslipidemia nicotine abuse Recent history of MSSA bacteremia status post finishing therapy via PICC line Plan: Initiate patient on BiPAP / Obtain arterial blood gas Arrange BiPAP likely at ECF if patient agreeable Continue bronchodilators Supplemental oxygen Agree with gentle diuresis Continue maximal medical care for heart failure and coronary artery disease Patient is approved for Fasenra on outpatient basis I've discussed with him at length about risk of covid 19 pneumonia and biologic agents patient understands that but is still want to proceed with it Further recommendations pending plan of care as per clinical response of the patient Time with Patient: Greater than 30
[2019-09-24] MEDS: HEPARIN SODIUM,PORCINE 5,000 UNIT/ML 1 ML VIAL SQ SCH ×3 (09:29→23:10)
[2019-09-24] MEDS: ATORVASTATIN 40 MG TAB PO SCH (09:34)
[2019-09-24] MEDS: EZETIMIBE 10 MG TAB PO SCH (09:34)
[2019-09-24] MEDS: LORATADINE 10 MG TAB PO SCH (09:35)
[2019-09-24] MEDS: METHADONE 5 MG TAB PO SCH (09:36)
[2019-09-24] MEDS: METHADONE 10 MG TAB PO SCH (09:38)
[2019-09-24] MEDS: predniSONE 20 MG TAB PO SCH ×2 (09:39→20:45)
[2019-09-24] MEDS: NICOTINE 21MG/24HR PATCH TRANSDERM SCH (09:40)
[2019-09-24] MEDS: MULTIVITAMINS, THERA 1 EACH TAB PO SCH (09:41)
[2019-09-24] MEDS: FAMOTIDINE 20 MG TAB PO SCH (11:13)
[2019-09-24] MEDS: POTASSIUM CHLORIDE ER 20 MEQ TAB.ER PO SCH ×3 (11:13→15:20)
[2019-09-24] MEDS: LISINOPRIL 2.5 MG TAB PO SCH (11:13)
--- NOTE | 2019-09-24 12:58 | P.PN ---
Subjective Progress Note Date: 09/24/19 This is a 58-year-old gentleman with known history of severe ischemic cardiomyopathy, history of coronary artery disease with prior bypass surgery, history of chronic kidney disease, hyperlipidemia, hypertension. He was recently discharged home from the hospital after being here with an infectious process and positive blood cultures. During this recent admission he underwent a transesophageal echocardiographic study to rule out endocarditis and his JOVANA showed an ejection fraction of 20-25% with moderate mitral and mild to moderate tricuspid regurgitation with no evidence of vegetation. He presented to the hospital on this occasion with symptoms of worsening shortness of breath with associated cough. He underwent a cardiac catheterization in September 2018 and was found to have a severe stenosis in the LAD, occluded first obtuse marginal branch, chronically occluded mid RCA with mild to moderate disease in the proximal circumflex, patent JACKSON to the LAD and patent saphenous vein graft to the diagonal branch and to the right PDA. Patient was seen and examined this morning, potassium 3.3 today, BUN 31, creatinine 1.5, continues to be on IV Lasix. Objective - Vital Signs Vital signs: Vital Signs Temp 98.8 F 09/24/19 04:00 Pulse 76 09/24/19 04:00 Resp 18 09/24/19 04:00 BP 108/73 09/24/19 04:00 Pulse Ox 95 09/24/19 04:00 Intake & Output 09/23/19 09/24/19 09/24/19 18:59 06:59 18:59 Intake Total 200 120 Output Total 500 675 100 Balance -500 -475 20 Weight 81 kg 81 kg Intake: IV 20 0.9 20 Oral 180 120 Output: Urine 500 675 100 Other: Voiding Method Toilet Toilet Urinal # Voids 1 1 - Exam PHYSICAL EXAMINATION: GENERAL: 58-year-old gentleman in no acute distress at the time of my examination HEENT: Head is atraumatic, normocephalic. Pupils equal, round. Sclera anicte hope. Conjunctiva are clear. Mucous membranes of the mouth are moist. Neck is supple. There is no elevated jugular venous pressure. No carotid bruit is heard. HEART EXAMINATION: S1 and S2 systolic murmur is heard CHEST EXAMINATION: Lungs reveal decreased air entry bilaterally, decreased air exchange ABDOMEN: Soft, obese, nontender. Bowel sounds are heard. No organomegaly noted. EXTREMITIES: 2+ peripheral pulses with 1-2+ evidence of peripheral edema and no calf tenderness noted. NEUROLOGIC patient is awake, alert and oriented 3 . - Labs CBC & Chem 7: 09/24/19 05:09 09/24/19 05:09 Labs: Abnormal Lab Results - Last 24 Hours (Table) 09/24/19 09/24/19 Range/Units 05:09 05:09 RBC 2.88 L (4.30-5.90) m/uL Hgb 9.4 L (13.0-17.5) gm/dL Hct 29.0 L (39.0-53.0) % MCV 100.6 H (80.0-100.0) fL RDW 16.3 H (11.5-15.5) % Lymphocytes # 0.9 L (1.0-4.8) k/uL Potassium 3.3 L (3.5-5.1) mmol/L Chloride 85 L (98-107) mmol/L Carbon Dioxide 42 H* (22-30) mmol/L BUN 31 H (9-20) mg/dL Creatinine 1.50 H (0.66-1.25) mg/dL Assessment and Plan Plan: Assessment and plan #1 progressive symptoms of dyspnea, likely related to worsening congestive heart failure, systolic acute on chronic #2 recent infectious process with associated fever and positive blood cultures #3 coronary artery disease with prior bypass surgery #4 chronic kidney disease #5 ischemic cardio myopathy with prior AICD #6 COPD #7 hyperlipidemia Plan We will replace the patient's potassium and start him on a low-dose of KEON inhibitor, continue IV Lasix, continue to monitor intake and output along with daily weights. DNP note has been reviewed, I agree with a documented findings and plan of care. Patient was seen and examined.
--- NOTE | 2019-09-24 13:24 | P.PN ---
Subjective Progress Note Date: 09/24/19 This is a 58-year-old male patient of Drs. Bautista, Jing and Farideh with past medical history of coronary artery disease and status post coronary artery bypass grafting and previous angioplasty and stenting so that, heart catheterization in September 2018 revealed severe stenosis of the LAD with occluded first obtuse marginal branch, chronically occluded mid right coronary artery, mild to moderate disease of the proximal left circumflex, patent JACKSON to LAD, patent saphenous vein graft to the diagonal branch and to the right PDA, severely impaired left ventricular systolic function, ischemic cardiomyopathy EF of 20% status post AICD, chronic systolic heart failure as well as chronic obstructive pulmonary disease, chronic hypoxic respiratory failure on home O2, hypertension, hyperlipidemia, chronic pain syndrome on methadone, tobacco use and dependencequit September 2018, obstructive sleep apnea unable to tolerate CPAP. Patient was hospitalized August 29 through September 08 for acute respiratory failure secondary to acute on chronic systolic heart failure, acute kidney injury, MSSA bacteremia. JOVANA revealed severe impaired left ventricular systolic function with EF of 20-25%, mildly dilated left atrium, aortic sclerosis with no evidence of stenosis, mitral annular calcification, moderate mitral with mild to moderate tricuspid regurgitation. No shunting. No evidence of vegetation. Mild a therosclerotic changes of the descending thoracic aorta. Patient was discharged home with homecare. He has completed course of IV Kefzol for 8 days. Patient states that he came back to the hospital because he "could not breathe." He states he has had water retention but does not know his weight change. He feels he has fluid retention all over his body. He states he has not been sleeping and feels he is very tired. He denies having any fever or chills. No chest pain. He is complaining of his ALLERGIES being bad and concerned that he needs to have Fasenra injection which has been approved by his insurance. He feels that he would be significantly better if he was getting this injection. Patient also complains of soreness/small wound to the left ankle area. Patient came into [facility] emergency center and found to be afebrile, blood pressure 137/88, pulse ox 100% on 3 L nasal cannula, heart rate 92. Hemoglobin 8.9, WBC 6.4. Chloride 83, CO2 47, BUN 44 and creatinine 1.62, blood sugar 120. D-dimer 0.6. Liver function tests normal. Troponin 0.078, proBNP 13,400. EKG was a pacer rhythm. Chest x-ray reveals chronic elevation of the right diaphragm with basilar atelectasis unchanged. No heart failure. Patient received 1 dose of IV Lasix 40 mg IV and admitted to the cardiac stepdown unit. Consults requested with cardiology, pulmonary medicine and n ephrology. 09/23: Patient has been seen by Dr. Gong and he states that the administration of Fasenra has been on hold due to Covid 19. We discussed need for BiPAP and we will plan to order ABGs and overnight pulse ox. Patient is agreeable to go to [facility] for subacute rehab. manager of sales and health and social care teacher following for this. Patient has been afebrile, heart rate 76, blood pressure 108/73, pulse ox 95% on 5 L nasal cannula. Repeat blood work reveals WBC of 5.3, hemoglobin 9.4, platelet count 236. Sodium 137, potassium 3.3 and will be replaced, chloride 85, CO2 52, BUN 31 creatinine 1.5. Cardiology is following the patient with recommendations to start the patient on KEON inhibitor and continue IV Lasix. Dr. Goldstein is added and Diamox and plan to decrease Lasix. Objective - Vital Signs Vital signs: Vital Signs Temp 98.8 F 09/24/19 04:00 Pulse 76 09/24/19 04:00 Resp 18 09/24/19 04:00 BP 108/73 09/24/19 04:00 Pulse Ox 95 09/24/19 04:00 Intake & Output 09/23/19 09/24/19 09/24/19 18:59 06:59 18:59 Intake Total 200 Output Total 500 675 Balance -500 -475 Weight 81 kg 81 kg Intake: IV 20 0.9 20 Oral 180 Output: Urine 500 675 Other: Voiding Method Toilet Toilet Urinal # Voids 1 - Exam Review of Systems Constitutional: Denies chills, Denies lethargy, Denies weakness, denies fever Eyes: denies blurred vision, denies bulging eye, denies decreased vision Ears, nose, mouth and throat: Denies dental pain, Denies dysphagia, Denies neck lump, Denies sore throat Cardiovascular: Reports decreased exercise tolerance, Reports dyspnea on exertion, Reports shortness of breath, reports edema, reports lower extremity edema, Denies chest pain, Denies lightheadedness, Denies rapid heart beat, Denies syncope Respiratory: Reports cough, Reports home oxygen, Denies congestion, Denies cough with sputum, reports sleep apnea, Denies snoring, Denies wheezing Gastrointestinal: Denies abdominal pain, Denies bloating, Denies BRBPR, Denies excessive gas, Denies heartburn, Denies melena, Denies nausea, Denies vomiting Genitourinary: Reports nocturia, Denies dysuria Musculoskeletal: Denies myalgias Musculoskeletal: absent: ankle pain, ankle stiffness, ankle swelling, elbow pain, elbow stiffness, elbow swelling, foot pain, foot stiffness, foot swelling, hand pain, hand stiffness, hand swelling, hip pain, hip stiffness, hip swelling, knee pain, knee stiffness, knee swelling, shoulder pain, shoulder stiffness, shoulder swelling, wrist pain, wrist stiffness, wrist swelling Integumentary: Denies pruritus, Denies rash, reports wound left ankle Neurological: Denies numbness, Denies weakness Psychiatric: Denies anxiety, Denies depression Endocrine: Denies fatigue, Denies weight change Physical Examination Gen.: This is a 58-year-old obese male. Patient is resting in bed and currently appears to be in no respiratory distress at rest. HEENT: Head is atraumatic, normal cephalic, pupils were equal round reactive to light and accommodation, extraocular muscle movement were intact, mucous membranes of mouth dry. Neck: Supple, no JVP. Chest: Decreased breath sound at bases, few rhonchi, minimal expiratory wheezes, minimal intercostal retraction, there is an AICD located in the left upper precordium. Heart: First heart sound is depressed, second heart sounds normal, there is systolic ejection murmur 2/6 located in the left sternal border, there is AICD in the left upper precordium Abdomen: Soft, nontender, nondistended, positive bowel sounds. Extremities: Trace edema, no calf tenderness, dorsalis pedis +1 bilaterally. Small superficial wound to the left lateral ankle. No erythema, no significant drainage. Neurologic examination: Patient is awake alert and oriented 3, cranial nerves II-12 appear grossly intact, muscle power 4 out of 5 in upper and lower extremity disease bilaterally. - Labs CBC & Chem 7: 09/24/19 05:09 09/24/19 05:09 Labs: Abnormal Lab Results - Last 24 Hours (Table) 09/24/19 09/24/19 Range/Units 05:09 05:09 RBC 2.88 L (4.30-5.90) m/uL Hgb 9.4 L (13.0-17.5) gm/dL Hct 29.0 L (39.0-53.0) % MCV 100.6 H (80.0-100.0) fL RDW 16.3 H (11.5-15.5) % Lymphocytes # 0.9 L (1.0-4.8) k/uL Potassium 3.3 L (3.5-5.1) mmol/L Chloride 85 L (98-107) mmol/L Carbon Dioxide 42 H* (22-30) mmol/L BUN 31 H (9-20) mg/dL Creatinine 1.50 H (0.66-1.25) mg/dL Assessment and Plan Plan: 1. Acute on chronic hypoxemic respiratory failure due to acute on chronic systolic heart failure, COPD. Continue DuoNeb treatment every 4 hours as needed, inhaled steroid twice daily, continue Lasix 40 mg IV every 8 hours. Consult with cardiology, pulmonary medicine appreciated. Lisinopril 2.5 mg daily added. 2. Acute kidney injury with chronic kidney disease stage 3. Consult with nephrology appreciated. Continue Lasix. Dr. Goldstein has added Diamox 250 mg IV every 12 hours. 3. Coronary artery disease status post coronary artery bypass graft with PCI and ischemic cardiomyopathy post AICD. Continue Coreg 3.125 mg orally twice every day. 4. COPD and moderate persistent asthma. Continue DuoNeb 3 mg nebulization, inhaled steroids, Singulair 10 mg at bedtime, Claritin [address] Gong. 5. Hypertension and hypertensive cardiovascular disease. Continue patient on carvedilol. 6. Hyperlipidemia. Continue Lipitor 40 mg orally once every day. 7. History of tobacco use and dependence. Patient quit 2018. 8. Chronic pain syndrome. Continue patient on methadone. 9. Recent treatment for MSSA bacteremia. Patient completed course of IV Kefzol. 10. Small ulcer to the left lateral ankle. Local wound care. 11. DVT prophylaxis. Heparin subcu. 12. GI prophylaxis. Pepcid 20 mg orally once every day. 13. Obstructive sleep apnea unable to tolerate CPAP. Patient is willing to try BiPAP. ABG and continuous nighttime pulse ox is been ordered. CODE STATUS: DO NOT RESUSCITATE. Discharge plan: [place] with BiPAP Impression and plan of care have been directed as dictated by the signing physician. Isabelle Andersen nurse practitioner acting as scribe for signing jabari taylorian.
--- NOTE | 2019-09-24 15:16 | PN ---
PROGRESS NOTE Patient is seen for followup for acute kidney injury, mainly cardiorenal, currently maintained on IV Lasix. Renal function has improved, serum creatinine down from 1.6 to 1.5 mg/dL. Patient also has significant metabolic alkalosis, for which he was started on Diamox, with improvement in his alkalosis. Overall, patient states he is feeling better. His weight is down from admission. I am not sure if this is accurate weight; however, it is the same as yesterday. PHYSICAL EXAMINATION: On examination today, blood pressure was 108/73, heart rate 76 per minute. Patient is afebrile. EXAMINATION OF THE HEART: S1 and S2. EXAMINATION OF LUNGS: Decreased breath sounds at bases. ABDOMEN: Soft, non-tender. Examination of lower extremities shows edema 1+ bilaterally. BALANCE SHEET ANALYST exam is grossly intact. LABS: Hemoglobin 9.4, sodium 137, potassium 3.3, chloride 85. CO2 is 42, BUN 31, creatinine 1.5. Troponin 0.078. ASSESSMENT: 1. Acute kidney injury, cardiorenal, currently slightly improved. Continue current dose of IV Lasix. 2. Metabolic alkalosis secondary to diuresis, started on Diamox and currently improved. 3. Hypokalemia secondary to diuretics, status post replacement. 4. Congestive heart failure, acute on top of chronic, mainly systolic. 5. Cardiomyopathy; ejection fraction 20% to 25%. 6. Chronic kidney disease, stage III, secondary to nephrosclerosis. Previous creatinine about 1.1 to 1.4 mg/dL. 7. Anemia. Rule out iron deficiency. PLAN: Check iron profile. Continue current dose of IV Lasix. Repeat labs in a.m. Continue with the Diamox as well. MMODL / IJN: [id number] /
[2019-09-24] MEDS: ALPRAZolam 0.25 MG TAB PO PRN ×2 (15:23→23:10)
[2019-09-24 19:24] LABS: % Iron Saturation 24.91 (15.00-50.00)
[2019-09-24] MEDS: MONTELUKAST 10 MG TAB PO SCH (20:45)
[2019-09-24 21:26] LABS: ABG Base Excess 13.7 mmol/L; ABG HCO3 39 mmol/L (21-25); ABG Oxygen Saturation 94.8 % (94-97); ABG PCO2 63 mmHg (35-45); ABG PO2 74 mmHg (83-108); ABG TCO2 41 mmol/L (19-24); Allen Test Performed? Yes
[2019-09-25 08:58] LABS: Anisocytosis Slight; HCT 26.5 % (39.0-53.0); HGB 8.5 gm/dL (13.0-17.5); MCH 32.8 pg (25.0-35.0); MCHC 32.1 g/dL (31.0-37.0); MCV 101.9 fL (80.0-100.0); Macrocytosis Moderate; Mean Platelet Volume 7.5; Platelet Count 217 k/uL (150-450); Poikilocytosis Slight; RDW 16.6 % (11.5-15.5)
[2019-09-25] MEDS: FLUTICASONE PROPION INHALATION SCH (08:59)
[2019-09-25] MEDS: SALMETEROL INHALATION SCH (08:59)
[2019-09-25] MEDS: LISINOPRIL 2.5 MG TAB PO SCH (09:01)
[2019-09-25] MEDS: HEPARIN SODIUM,PORCINE 5,000 UNIT/ML 1 ML VIAL SQ SCH ×3 (09:01→23:16)
[2019-09-25] MEDS: predniSONE 20 MG TAB PO SCH ×2 (09:01→20:01)
[2019-09-25] MEDS: FAMOTIDINE 20 MG TAB PO SCH (09:01)
[2019-09-25] MEDS: FUROSEMIDE 10 MG/ML 4 ML VIAL IV SCH (09:01)
[2019-09-25] MEDS: CARVEDILOL 3.125 MG TAB PO SCH ×2 (09:01→16:05)
[2019-09-25] MEDS: MULTIVITAMINS, THERA 1 EACH TAB PO SCH (09:01)
[2019-09-25] MEDS: ATORVASTATIN 40 MG TAB PO SCH (09:01)
[2019-09-25] MEDS: LORATADINE 10 MG TAB PO SCH (09:01)
[2019-09-25] MEDS: NICOTINE 21MG/24HR PATCH TRANSDERM SCH (09:02)
[2019-09-25] MEDS: EZETIMIBE 10 MG TAB PO SCH (09:02)
[2019-09-25] MEDS: METHADONE 5 MG TAB PO SCH (09:20)
[2019-09-25] MEDS: METHADONE 10 MG TAB PO SCH (09:21)
[2019-09-25 09:49] LABS: Albumin 3.6 g/dL (3.5-5.0); Calcium 8.8 mg/dL (8.4-10.2); Magnesium 2.4 mg/dL (1.6-2.3); Potassium 3.7 mmol/L (3.5-5.1); Total Bilirubin 0.4 mg/dL (0.2-1.3); Total Protein 5.8 g/dL (6.3-8.2)
--- NOTE | 2019-09-25 10:03 | P.PN ---
Subjective Progress Note Date: 09/25/19 Principal diagnosis: Acute on chronic hypoxic respiratory failure Acute systolic heart failure COPD severe Chronic persistent severe asthma Hypertension hypertensive cardiovascular disease Dyslipidemia nicotine abuse Recent history of MSSA bacteremia status post finishing therapy via PICC line 09/25/2019, patient seen eval examined during the rounds he remains on 5 L nasal cannula is still short of breath, has use BiPAP machine for some period time yesterday but not for extended period time I have discussed with her at length he needs to use it during the day as needed and at least night for continuous basis at least 5-6 hours. He understood wanted will try later on today 09/24/2019, patient seen and evaluated examined during the rounds labs reviewed medications reviewed care plan discussed with the primary service at length as well patient is more somnolent today lethargic but arousable, his CO2 is very high is still hypercapnic respiratory failure and severe COPD patient is a candidate for noninvasive ventilation have discussed with him at length he is agreeable for initiation of BiPAP for now we'll start the BiPAP throughout most of the day and will continue use history night and when necessary during day subsequently, Patient is well-known to me for end-stage lung disease secondary severe COPD and also component of chronic persistent severe asthma patient recently has been asked lysis for acute MA patient was discharged earlier the morning of this month, patient was in fact has the appointment with me in telemetry medicine at that time was doing well with his breathing treatment oxygen, in the last to 3 days to let increasing progressive shortness of breath and increasing edema no purulent sputum is present some dry nonproductive cough is present due to increasing swelling came into the hospital for further evaluation, respiratory status stable on 3 L the saturation was 100%, BNP however was over 3000 chest x- ray suggestive of elevated diaphragm baseline ejection fraction is very low patient has AICD, Objective - Vital Signs Vital signs: Vital Signs Temp 97.6 F 09/25/19 09:00 Pulse 65 09/25/19 09:00 Resp 18 09/25/19 09:00 BP 103/62 09/25/19 09:00 Pulse Ox 96 09/25/19 09:00 Intake & Output 09/24/19 09/25/19 09/25/19 18:59 06:59 18:59 Intake Total 120 450 360 Output Total 500 Balance -380 450 360 Weight 88 kg Intake: Oral 120 450 360 Output: Urine 500 Other: Voiding Method Toilet Toilet Urinal Urinal # Voids 1 - Exam - Constitutional General appearance: average body habitus, disheveled, morbidly obese - EENT Eyes: EOMI, PERRLA Ears: bilateral: normal - Neck Neck: normal ROM Thyroid: bilateral: normal size - Respiratory Respiratory: bilateral: diminished, rales - Cardiovascular Rhythm: regular Heart sounds: normal: S1, S2 - Gastrointestinal General gastrointestinal: normal bowel sounds - Neurologic Neurologic: CNII-XII intact - Musculoskeletal Musculoskeletal: gait normal, generalized weakness, strength equal bilaterally - Psychiatric Psychiatric: A&O x's 3, appropriate affect - Labs CBC & Chem 7: 09/25/19 08:33 09/24/19 05:09 Labs: Abnormal Lab Results - Last 24 Hours (Table) 09/24/19 09/25/19 Range/Units 21:24 08:33 RBC 2.60 L (4.30-5.90) m/uL Hgb 8.5 L (13.0-17.5) gm/dL Hct 26.5 L (39.0-53.0) % MCV 101.9 H (80.0-100.0) fL RDW 16.6 H (11.5-15.5) % ABG pCO2 63 H (35-45) mmHg ABG pO2 74 L (83-108) mmHg ABG HCO3 39 H (21-25) mmol/L ABG Total CO2 41 H (19-24) mmol/L Assessment and Plan Assessment: Acute on chronic hypoxic and hypercapnic respiratory failure Altered mental status and lethargy due to likely high CO2 Acute systolic heart failure COPD severe Chronic persistent severe asthma Hypertension hypertensive cardiovascular disease Dyslipidemia nicotine abuse Recent history of MSSA bacteremia status post finishing therapy via PICC line Plan: Initiate and continue patient on BiPAP 03/08, patient has been educated at length, patient needs to use BiPAP each night and when necessary during the day Reviewed arterial blood gas and symptoms consistent with compensated hypercapnic respiratory failure Arrange BiPAP likely at ECF if patient agreeable Continue bronchodilators Supplemental oxygen in between BiPAP Agree with gentle diuresis Continue maximal medical care for heart failure and coronary artery disease Patient is approved for [facility] on outpatient basis I've discussed with him at length about risk of covid 19 pneumonia and biologic agents patient understands that but is still want to proceed with it Further recommendations pending plan of care as per clinical response of the patient Time with Patient: Greater than 30
--- NOTE | 2019-09-25 10:33 | PN ---
PROGRESS NOTE Mr. Goodman is a 58-year-old male with known history of severe ischemic cardiomyopathy, history of severe obstructive lung disease, who presented with worsening dyspnea. He is continued to be dyspneic today although slightly better. He has no symptoms of chest pain. He has no dizziness or palpitation. He denies any nausea or vomiting. His peripheral edema has improved. He continues to be feeling fatigued with lack of energy. He continues to be on Diamox 250 mg twice a day, Lipitor 40 mg daily, Coreg 3.125 mg twice a day, Zetia 10 mg daily, Lasix 40 mg IV q.8 hours. lisinopril 2.5 mg daily, methadone, Singulair, and prednisone. PHYSICAL EXAMINATION: Blood pressure 103/60 with a heart rate in the 60s. LUNGS: With decreased air exchange but no wheezes. HEART: Regular rate and rhythm, S1, S2. No S3 with a systolic murmur. ABDOMEN: Soft, obese, nontender. EXTREMITIES: Trace edema. LAB DATA: Revealed a hemoglobin of 8.5. IMPRESSION: 1. Worsening dyspnea with predominantly severe chronic obstructive pulmonary disease with an element of congestive heart failure with severe ischemic cardiomyopathy. 2. Status post coronary artery bypass grafting. 3. Chronic kidney disease. 4. Status post ICD. 5. Hyperlipidemia. 6. Recent positive blood cultures. RECOMMENDATION: Will continue present therapy, follow his renal function and depending on his response, further recommendation will be made. Unfortunately, the long-term prognosis remains quite guarded. MMODL / IJN: [id number] /
[2019-09-25] MEDS: ALPRAZolam 0.25 MG TAB PO PRN ×2 (12:54→23:16)
--- NOTE | 2019-09-25 13:44 | P.PN ---
Subjective Progress Note Date: 09/25/19 This is a 58-year-old male patient of Drs. Bautista, Jing and Farideh with past medical history of coronary artery disease and status post coronary artery bypass grafting and previous angioplasty and stenting so that, heart catheterization in September 2018 revealed severe stenosis of the LAD with occluded first obtuse marginal branch, chronically occluded mid right coronary artery, mild to moderate disease of the proximal left circumflex, patent JACKSON to LAD, patent saphenous vein graft to the diagonal branch and to the right PDA, severely impaired left ventricular systolic function, ischemic cardiomyopathy EF of 20% status post AICD, chronic systolic heart failure as well as chronic obstructive pulmonary disease, chronic hypoxic respiratory failure on home O2, hypertension, hyperlipidemia, chronic pain syndrome on methadone, tobacco use and dependencequit September 2018, obstructive sleep apnea unable to tolerate CPAP. Patient was hospitalized August 29 through September 08 for acute respiratory failure secondary to acute on chronic systolic heart failure, acute kidney injury, MSSA bacteremia. JOVANA revealed severe impaired left ventricular systolic function with EF of 20-25%, mildly dilated left atrium, aortic sclerosis with no evidence of stenosis, mitral annular calcification, moderate mitral with mild to moderate tricuspid regurgitation. No shunting. No evidence of vegetation. Mild a therosclerotic changes of the descending thoracic aorta. Patient was discharged home with homecare. He has completed course of IV Kefzol for 8 days. Patient states that he came back to the hospital because he "could not breathe." He states he has had water retention but does not know his weight change. He feels he has fluid retention all over his body. He states he has not been sleeping and feels he is very tired. He denies having any fever or chills. No chest pain. He is complaining of his ALLERGIES being bad and concerned that he needs to have Fasenra injection which has been approved by his insurance. He feels that he would be significantly better if he was getting this injection. Patient also complains of soreness/small wound to the left ankle area. Patient came into [facility] emergency center and found to be afebrile, blood pressure 137/88, pulse ox 100% on 3 L nasal cannula, heart rate 92. Hemoglobin 8.9, WBC 6.4. Chloride 83, CO2 47, BUN 44 and creatinine 1.62, blood sugar 120. D-dimer 0.6. Liver function tests normal. Troponin 0.078, proBNP 13,400. EKG was a pacer rhythm. Chest x-ray reveals chronic elevation of the right diaphragm with basilar atelectasis unchanged. No heart failure. Patient received 1 dose of IV Lasix 40 mg IV and admitted to the cardiac stepdown unit. Consults requested with cardiology, pulmonary medicine and n ephrology. 09/23: Patient has been seen by Dr. Gong and he states that the administration of Fasenra has been on hold due to Covid 19. We discussed need for BiPAP and we will plan to order ABGs and overnight pulse ox. Patient is agreeable to go to [facility] for subacute rehab. digital media manager and social work manager following for this. Patient has been afebrile, heart rate 76, blood pressure 108/73, pulse ox 95% on 5 L nasal cannula. Repeat blood work reveals WBC of 5.3, hemoglobin 9.4, platelet count 236. Sodium 137, potassium 3.3 and will be replaced, chloride 85, CO2 52, BUN 31 creatinine 1.5. Cardiology is following the patient with recommendations to start the patient on KEON inhibitor and continue IV Lasix. Dr. Goldstein is added Diamox and plan to decrease Lasix. 09/24: Patient underwent a nighttime pulse ox monitoring and qualifies for BiPAP. Prescription will be provided to home health care case manager. Unfortunately [facility] will not accept the patient due to him being on chronic methadone. Other [facility] are looking at accepting him for subacute rehab. Patient has been afebrile, heart rate 62, blood pressure 92/53, pulse ox 92% on 5 L nasal cannula. Blood pressures have been on the low side and patient started on lisinopril yesterday as well as Diamox. Repeat blood work reveals WBC of 5, hemoglobin 8.5, platelet count 217. Sodium 137, potassium 3.7, chloride 88, CO2 41, BUN 38 creatinine 2.59. Patient is continued on Lasix 40 mg IV every 8 hours. Objective - Vital Signs Vital signs: Vital Signs Temp 97.8 F 09/25/19 04:00 Pulse 62 09/25/19 04:00 Resp 18 09/25/19 04:00 BP 92/53 09/25/19 04:00 Pulse Ox 92 L 09/25/19 04:00 Intake & Output 09/24/19 09/25/19 09/25/19 18:59 06:59 18:59 Intake Total 120 450 Output Total 500 Balance -380 450 Weight 88 kg Intake: Oral 120 450 Output: Urine 500 Other: Voiding Method Toilet Toilet Urinal Urinal # Voids 1 - Exam Review of Systems Constitutional: Denies chills, Denies lethargy, Denies weakness, denies fever Eyes: denies blurred vision, denies bulging eye, denies decreased vision Ears, nose, mouth and throat: Denies dental pain, Denies dysphagia, Denies neck lump, Denies sore throat Cardiovascular: Reports decreased exercise tolerance, Reports dyspnea on exertion, Reports shortness of breath, reports edema, reports lower extremity edema, Denies chest pain, Denies lightheadedness, Denies rapid heart beat, Denies syncope Respiratory: Reports cough, Reports home oxygen, Denies congestion, Denies cough with sputum, reports sleep apnea, Denies snoring, Denies wheezing Gastrointestinal: Denies abdominal pain, Denies bloating, Denies BRBPR, Denies excessive gas, Denies heartburn, Denies melena, Denies nausea, Denies vomiting Genitourinary: Reports nocturia, Denies dysuria Musculoskeletal: Denies myalgias Musculoskeletal: absent: ankle pain, ankle stiffness, ankle swelling, elbow pain, elbow stiffness, elbow swelling, foot pain, foot stiffness, foot swelling, hand pain, hand stiffness, hand swelling, hip pain, hip stiffness, hip swelling, knee pain, knee stiffness, knee swelling, shoulder pain, shoulder stiffness, shoulder swelling, wrist pain, wrist stiffness, wrist swelling Integumentary: Denies pruritus, Denies rash, reports wound left ankle Neurological: Denies numbness, Denies weakness Psychiatric: Denies anxiety, Denies depression reports excessive sleepiness. Endocrine: Denies fatigue, Denies weight change Physical Examination Gen.: This is a 58-year-old obese male. Patient is resting in bed and currently appears to be in no respiratory distress at rest. HEENT: Head is atraumatic, normal cephalic, pupils were equal round reactive to light and accommodation, extraocular muscle movement were intact, mucous membranes of mouth dry. Neck: Supple, no JVP. Chest: Decreased breath sound at bases, few rhonchi, minimal expiratory wheezes, minimal intercostal retraction, there is an AICD located in the left upper precordium. Heart: First heart sound is depressed, second heart sounds normal, there is systolic ejection murmur 2/6 located in the left sternal border, there is AICD in the left upper precordium Abdomen: Soft, nontender, nondistended, positive bowel sounds. Extremities: Trace edema, no calf tenderness, dorsalis pedis +1 bilaterally. Small superficial wound to the left lateral ankle. No erythema, no significant drainage. Neurologic examination: Patient is awake alert and oriented 3, cranial nerves II-12 appear grossly intact, generalized weakness noted. - Labs CBC & Chem 7: 09/25/19 08:33 09/25/19 09:13 Labs: Abnormal Lab Results - Last 24 Hours (Table) 09/24/19 Range/Units 21:24 ABG pCO2 63 H (35-45) mmHg ABG pO2 74 L (83-108) mmHg ABG HCO3 39 H (21-25) mmol/L ABG Total CO2 41 H (19-24) mmol/L Assessment and Plan Plan: 1. Acute on chronic hypoxemic respiratory failure due to acute on chronic systolic heart failure, COPD. Continue DuoNeb treatment every 4 hours as needed, inhaled steroid twice daily, continue Lasix 40 mg IV every 8 hours. Consult with cardiology, pulmonary medicine appreciated. Lisinopril 2.5 mg daily added. 2. Acute kidney injury with chronic kidney disease stage 3. Consult with nephrology appreciated. Continue Lasix. Dr. Goldstein has added Diamox 250 mg IV every 12 hours. 3. Coronary artery disease status post coronary artery bypass graft with PCI and ischemic cardiomyopathy post AICD. Continue Coreg 3.125 mg orally twice every day. 4. COPD and moderate persistent asthma. Continue DuoNeb 3 mg nebulization, inhaled steroids, Singulair 10 mg at bedtime, Claritin [address] with [address] Gong. 5. Hypertension and hypertensive cardiovascular disease. Continue patient on carvedilol. 6. Hyperlipidemia. Continue Lipitor 40 mg orally once every day. 7. History of tobacco use and dependence. Patient quit 2018. 8. Chronic pain syndrome. Continue patient on methadone. 9. Recent treatment for MSSA bacteremia. Patient completed course of IV Kefzol. 10. Small ulcer to the left lateral ankle. Local wound care. 11. DVT prophylaxis. Heparin subcu. 12. GI prophylaxis. Pepcid 20 mg orally once every day. 13. Obstructive sleep apnea unable to tolerate CPAP. Patient is willing to try BiPAP. Nighttime pulse ox has been completed.. CODE STATUS: DO NOT RESUSCITATE. Discharge plan: Subacute rehab with BiPAP Impression and plan of care have been directed as dictated by the signing phys ician. Isabelle Andersen nurse practitioner acting as scribe for signing physician.
--- NOTE | 2019-09-25 15:53 | PN ---
PROGRESS NOTE Patient is seen for followup for acute kidney injury, mainly cardiorenal. Renal function continues had improved as of yesterday; however, today serum creatinine is up to 2.59. Overall patient states he feels well. He denies any significant chest pains or shortness of breath. Patient has been voiding well. PHYSICAL EXAMINATION: On examination today, blood pressure was 103/62, heart rate of 65 per minute. Patient is afebrile. EXAMINATION OF THE HEART: S1 and S2. EXAMINATION OF LUNGS: Decreased breath sounds at bases. ABDOMEN: Soft, non-tender. Examination of lower extremities shows no significant edema. SHRUB GROWER exam is grossly intact. LABS: Sodium of 137, potassium 3.7, chloride 88. CO2 is 41, BUN 38, serum creatinine 2.59. ASSESSMENT: 1. Acute kidney injury, cardiorenal. Renal function was slightly improved yesterday; however, today serum creatinine is up to 2.59. I will hold off on the IV Lasix and we will repeat a chest x-ray today. I am not sure if his weight is accurate. It is up by 8 kg from yesterday. I doubt that this is accurate. 2. Chronic kidney disease, stage III, with previous creatinine in June of .1. However, since then he has had a creatinine about 1.3 to 1.5 mg/dL, most likely from nephrosclerosis. 3. Metabolic alkalosis associated with diuresis; started on Diamox. 4. Cardiomyopathy; ejection fraction 20% to 25%. 5. Hypokalemia secondary to diuresis, status post replacement. PLAN: Hold Lasix for now. Repeat labs in a.m. May continue with the KEON inhibitors. I will add midodrine, as blood pressure is significantly low, if the renal function continues to worsen by tomorrow. MMODL / IJN: [id number] /
[2019-09-25 16:37] LABS: Appearance,Urine Clear (Clear); Bilirubin,Urine Negative (Negative); Blood,Urine Negative (Negative); Color,Urine Yellow; Glucose,Urine (UA) Negative (Negative); Ketones,Urine Negative (Negative); Leukocyte Esterase,Urine Negative (Negative); Nitrite,Urine Negative (Negative); PH, Urine 7.5 (5.0-8.0); Protein,Urine Negative (Negative); Urobilinogen,Urine <2.0 mg/dL (<2.0)
[2019-09-25 20:02] LABS: Glucose,Whole Blood 202 mg/dL (75-99)
[2019-09-25] MEDS: MONTELUKAST 10 MG TAB PO SCH (20:02)
[2019-09-26 06:00] LABS: Glucose,Whole Blood 210 mg/dL (75-99)
[2019-09-26] MEDS: CARVEDILOL 3.125 MG TAB PO SCH ×2 (06:32→16:35)
[2019-09-26 06:50] LABS: Anisocytosis Slight; HCT 25.2 % (39.0-53.0); HGB 8.2 gm/dL (13.0-17.5); Hypochromasia Slight; MCH 34.1 pg (25.0-35.0); MCHC 32.5 g/dL (31.0-37.0); MCV 104.9 fL (80.0-100.0); Macrocytosis Moderate; Mean Platelet Volume 7.5; Platelet Count 236 k/uL (150-450); RBC 2.41 m/uL (4.30-5.90); RDW 16.8 % (11.5-15.5); WBC 5.6 k/uL (3.8-10.6)
[2019-09-26 07:02] LABS: Calcium 8.8 mg/dL (8.4-10.2); Potassium 3.9 mmol/L (3.5-5.1)
--- NOTE | 2019-09-26 09:15 | P.PN ---
Subjective Progress Note Date: 09/26/19 Principal diagnosis: Acute on chronic hypoxic respiratory failure Acute systolic heart failure COPD severe Chronic persistent severe asthma Hypertension hypertensive cardiovascular disease Dyslipidemia nicotine abuse Recent history of MSSA bacteremia status post finishing therapy via PICC line 09/26/2019, patient seen and evaluated examined during the rounds labs reviewed medications reviewed care plan discussed patient is slightly somnolent but arousable, patient has some Xanax last night after of words she was able to use the BiPAP machine he uses almost 6-7 hours, she is slightly better he was likely related to lidocaine currently he is on 5 L oxygen she remains afebrile he will likely go to ECF 09/25/2019, patient seen eval examined during the rounds he remains on 5 L nasal cannula is still short of breath, has use BiPAP machine for some period time yesterday but not for extended period time I have discussed with her at length he needs to use it during the day as needed and at least night for continuous basis at least 5-6 hours. He understood wanted will try later on today 09/24/2019, patient seen and evaluated examined during the rounds labs reviewed medications reviewed care plan discussed with the primary service at length as well patient is more somnolent today lethargic but arousable, his CO2 is very high is still hypercapnic respiratory failure and severe COPD patient is a candidate for noninvasive ventilation have discussed with him at length he is agreeable for initiation of BiPAP for now we'll start the BiPAP throughout most of the day and will continue use history night and when necessary during day subsequently, Patient is well-known to me for end-stage lung disease secondary severe COPD and also component of chronic persistent severe asthma patient recently has been asked lysis for acute [place] patient was discharged earlier the morning of this month, patient was in fact has the appointment with me in telemetry medicine at that time was doing well with his breathing treatment oxygen, in the last to 3 days to let increasing progressive shortness of breath and increasing edema no purulent sputum is present some dry nonproductive cough is present due to increasing swelling came into the hospital for further evaluation, respiratory status stable on 3 L the saturation was 100%, BNP however was over 3000 chest x- ray suggestive of elevated diaphragm baseline ejection fraction is very low patient has AICD, Objective - Vital Signs Vital signs: Vital Signs Temp 98.3 F 04/24/20 04:00 Pulse 51 L 09/26/19 04:00 Resp 18 09/26/19 04:00 BP 104/63 09/26/19 04:00 Pulse Ox 96 09/26/19 04:00 Intake & Output 09/25/19 09/26/19 09/26/19 18:59 06:59 18:59 Intake Total 1810 30 240 Output Total 1600 600 Balance 210 -570 240 Weight 88.5 kg Intake: IV 50 30 Invasive Line 1 50 30 Oral 1760 240 Output: Urine 1600 600 Other: Voiding Method Toilet Toilet Urinal Urinal # Voids 1 - Exam - Constitutional General appearance: average body habitus, disheveled, morbidly obese - EENT Eyes: EOMI, PERRLA Ears: bilateral: normal - Neck Neck: normal ROM Thyroid: bilateral: normal size - Respiratory Respiratory: bilateral: diminished, rales - Cardiovascular Rhythm: regular Heart sounds: normal: S1, S2 - Gastrointestinal General gastrointestinal: normal bowel sounds - Neurologic Neurologic: CNII-XII intact - Musculoskeletal Musculoskeletal: gait normal, generalized weakness, strength equal bilaterally - Psychiatric Psychiatric: A&O x's 3, appropriate affect - Labs CBC & Chem 7: 09/26/19 06:17 09/26/19 06:17 Labs: Abnormal Lab Results - Last 24 Hours (Table) 09/25/19 09/25/19 09/26/19 Range/Units 09:13 20:00 05:59 RBC (4.30-5.90) m/uL Hgb (13.0-17.5) gm/dL Hct (39.0-53.0) % MCV (80.0-100.0) fL RDW (11.5-15.5) % Sodium (137-145) mmol/L Chloride 88 L (98-107) mmol/L Carbon Dioxide 41 H* (22-30) mmol/L BUN 38 H (9-20) mg/dL Creatinine 2.59 H (0.66-1.25) mg/dL Glucose 113 H (74-99) mg/dL POC Glucose (mg/dL) 202 H 210 H (75-99) mg/dL Magnesium 2.4 H (1.6-2.3) mg/dL Total Protein 5.8 L (6.3-8.2) g/dL 09/26/19 09/26/19 Range/Units 06:17 06:17 RBC 2.41 L (4.30-5.90) m/uL Hgb 8.2 L (13.0-17.5) gm/dL Hct 25.2 L (39.0-53.0) % MCV 104.9 H (80.0-100.0) fL RDW 16.8 H (11.5-15.5) % Sodium 135 L (137-145) mmol/L Chloride 90 L (98-107) mmol/L Carbon Dioxide 39 H (22-30) mmol/L BUN 45 H (9-20) mg/dL Creatinine 2.49 H (0.66-1.25) mg/dL Glucose 140 H (74-99) mg/dL POC Glucose (mg/dL) (75-99) mg/dL Magnesium (1.6-2.3) mg/dL Total Protein (6.3-8.2) g/dL Assessment and Plan Assessment: Acute on chronic hypoxic and hypercapnic respiratory failure Altered mental status and lethargy due to likely high CO2 Acute systolic heart failure COPD severe Chronic persistent severe asthma Hypertension hypertensive cardiovascular disease Dyslipidemia nicotine abuse Recent history of MSSA bacteremia status post finishing therapy via PICC line Plan: continue patient on BiPAP 03/08, patient has been educated at length, patient needs to use BiPAP each night and when necessary during the day Reviewed arterial blood gas and symptoms consistent with compensated hypercapnic respiratory failure Arrange BiPAP likely at ECF and transferred to ECF if patient agreeable Continue bronchodilators Supplemental oxygen in between BiPAP Agree with gentle diuresis Continue maximal medical care for heart failure and coronary artery disease Patient is approved for Fasenra on outpatient basis I've discussed with him at length about risk of covid 19 pneumonia and biologic agents patient understands that but is still want to proceed with it Further recommendations pending plan of care as per clinical response of the patient Time with Patient: Greater than 30
--- NOTE | 2019-09-26 09:18 | PN ---
PROGRESS NOTE Mr. Goodman is a 58-year-old male with known history of severe ischemic cardiomyopathy, status post ICD implant, status post coronary bypass grafting with chronic obstructive lung disease, who presented with worsening dyspnea. He is feeling better today. He is supine. He is denying any chest pain. He denies any dizziness. His breathing is better overall. He was using the BiPAP during the night. He denies any palpitation. No nausea. No vomiting. He continues to be at this time on Coreg 3.125 mg twice a day, Zetia 10 mg daily, Lipitor 40 mg daily, lisinopril 2.5 mg daily. PHYSICAL EXAMINATION: Blood pressure 115/60 with a heart rate in 70s. LUNGS: With decreased air exchange bilaterally, no wheezes. HEART: Regular rate and rhythm, S1, S2. No S3. No rub appreciated. ABDOMEN: Soft, nontender, obese. Positive bowel sounds, no organomegaly. EXTREMITIES: Trace edema bilaterally. LAB DATA: Revealed a BUN and creatinine of 45 and 2.49, potassium 3.9. His bicarb is 39. Hemoglobin is 8.2, which has been stable. IMPRESSION: 1. Progressive dyspnea with a combination of exacerbation of chronic obstructive pulmonary disease and congestive heart failure. 2. Status post coronary artery bypass grafting. 3. History of severe ischemic cardiomyopathy. 4. Status post ICD implantation. 5. Renal failure, stabilizing. 6. Anemia. 7. Prior history of smoking. 8. Recent bacteremia. RECOMMENDATION: From the cardiac standpoint, I will continue present therapy, follow his renal function. I will repeat his BNP tomorrow. I will start him on 81 mg of aspirin and depending on his progress, further recommendation will be made. MMODL / IJN: [id number] /
[2019-09-26] MEDS: FLUTICASONE PROPION INHALATION SCH ×3 (09:32→22:52)
[2019-09-26] MEDS: SALMETEROL INHALATION SCH ×3 (09:32→22:52)
[2019-09-26] MEDS: MULTIVITAMINS, THERA 1 EACH TAB PO SCH (09:33)
[2019-09-26] MEDS: LISINOPRIL 2.5 MG TAB PO SCH (09:34)
[2019-09-26] MEDS: NICOTINE 21MG/24HR PATCH TRANSDERM SCH (09:34)
[2019-09-26] MEDS: predniSONE 20 MG TAB PO SCH ×2 (09:34→21:33)
[2019-09-26] MEDS: LORATADINE 10 MG TAB PO SCH (09:34)
[2019-09-26] MEDS: FAMOTIDINE 20 MG TAB PO SCH (09:34)
[2019-09-26] MEDS: ATORVASTATIN 40 MG TAB PO SCH (09:34)
[2019-09-26] MEDS: METHADONE 5 MG TAB PO SCH (09:34)
[2019-09-26] MEDS: HEPARIN SODIUM,PORCINE 5,000 UNIT/ML 1 ML VIAL SQ SCH ×3 (09:34→23:19)
[2019-09-26] MEDS: METHADONE 10 MG TAB PO SCH (09:35)
[2019-09-26] MEDS: EZETIMIBE 10 MG TAB PO SCH (09:36)
[2019-09-26] MEDS: ASPIRIN 81 MG PO SCH (09:41)
[2019-09-26 11:51] LABS: Glucose,Whole Blood 320 mg/dL (75-99)
--- NOTE | 2019-09-26 12:27 | PN ---
PROGRESS NOTE Patient is seen for followup for acute kidney injury, mainly cardiorenal. Patient was being diuresed. Diuretics were held yesterday as serum creatinine had gone up to 2.59 from 1.5 mg/dL. Currently, patient is comfortable. He denies any significant complaints. He is not short of breath. His serum creatinine is slightly improved to 2.49 from 2.59 yesterday. PHYSICAL EXAMINATION: On examination, patient is comfortable. Blood pressure 118/68, heart rate 63 per minute, he is afebrile. Examination of the heart, S1, S2. Examination of the lungs, decreased breath sounds at the bases. Abdomen is soft, nontender. Examination of the lower extremities shows no evidence of edema. LABS: Show sodium 135, potassium 3.9, chloride 90. CO2 is 39, BUN 45, creatinine 2.49, hemoglobin 8.2 g/dL. UA is completely benign. ASSESSMENT: 1. Acute kidney injury initially cardiorenal which had improved; however, creatinine went up to 2.59 from recent diuresis and it is slightly improved to 2.49 today. Diuretics are currently on hold. Patient is asymptomatic. 2. Metabolic alkalosis secondary to diuresis maintained on Diamox, which I will discontinue. 3. Chronic kidney disease stage III previous creatinine 1.1; however, most recently staying at 1.3 to 1.5 mg/dL, most likely from nephrosclerosis. 4. Cardiomyopathy, ejection fraction 20% to 25%. 5. Hypokalemia secondary to diuresis, status post replacement. PLAN: Continue to hold off on Lasix for now. We can resume low-dose oral loop diuretics tomorrow. Patient was on 40 mg p.o. b.i.d. at home. We can start it at once a day and increase it if he gains weight or develops edema and hypervolemia. MMODL / IJN: [id number] /
--- NOTE | 2019-09-26 13:17 | P.PN ---
Subjective Progress Note Date: 09/26/19 This is a 58-year-old male patient of Drs. Bautista, Jing and Farideh with past medical history of coronary artery disease and status post coronary artery bypass grafting and previous angioplasty and stenting so that, heart catheterization in September 2018 revealed severe stenosis of the LAD with occluded first obtuse marginal branch, chronically occluded mid right coronary artery, mild to moderate disease of the proximal left circumflex, patent JACKSON to LAD, patent saphenous vein graft to the diagonal branch and to the right PDA, severely impaired left ventricular systolic function, ischemic cardiomyopathy EF of 20% status post AICD, chronic systolic heart failure as well as chronic obstructive pulmonary disease, chronic hypoxic respiratory failure on home O2, hypertension, hyperlipidemia, chronic pain syndrome on methadone, tobacco use and dependencequit September 2018, obstructive sleep apnea unable to tolerate CPAP. Patient was hospitalized August 29 through September 08 for acute respiratory failure secondary to acute on chronic systolic heart failure, acute kidney injury, MSSA bacteremia. JOVANA revealed severe impaired left ventricular systolic function with EF of 20-25%, mildly dilated left atrium, aortic sclerosis with no evidence of stenosis, mitral annular calcification, moderate mitral with mild to moderate tricuspid regurgitation. No shunting. No evidence of vegetation. Mild a therosclerotic changes of the descending thoracic aorta. Patient was discharged home with homecare. He has completed course of IV Kefzol for 8 days. Patient states that he came back to the hospital because he "could not breathe." He states he has had water retention but does not know his weight change. He feels he has fluid retention all over his body. He states he has not been sleeping and feels he is very tired. He denies having any fever or chills. No chest pain. He is complaining of his ALLERGIES being bad and concerned that he needs to have Fasenra injection which has been approved by his insurance. He feels that he would be significantly better if he was getting this injection. Patient also complains of soreness/small wound to the left ankle area. Patient came into [facility] emergency center and found to be afebrile, blood pressure 137/88, pulse ox 100% on 3 L nasal cannula, heart rate 92. Hemoglobin 8.9, WBC 6.4. Chloride 83, CO2 47, BUN 44 and creatinine 1.62, blood sugar 120. D-dimer 0.6. Liver function tests normal. Troponin 0.078, proBNP 13,400. EKG was a pacer rhythm. Chest x-ray reveals chronic elevation of the right diaphragm with basilar atelectasis unchanged. No heart failure. Patient received 1 dose of IV Lasix 40 mg IV and admitted to the cardiac stepdown unit. Consults requested with cardiology, pulmonary medicine and n ephrology. 09/23: Patient has been seen by Dr. Gong and he states that the administration of Fasenra has been on hold due to Covid 19. We discussed need for BiPAP and we will plan to order ABGs and overnight pulse ox. Patient is agreeable to go to [facility] for subacute rehab. court manager and neonatal social worker following for this. Patient has been afebrile, heart rate 76, blood pressure 108/73, pulse ox 95% on 5 L nasal cannula. Repeat blood work reveals WBC of 5.3, hemoglobin 9.4, platelet count 236. Sodium 137, potassium 3.3 and will be replaced, chloride 85, CO2 52, BUN 31 creatinine 1.5. Cardiology is following the patient with recommendations to start the patient on KEON inhibitor and continue IV Lasix. Dr. Goldstein is added Diamox and plan to decrease Lasix. 09/24: Patient underwent a nighttime pulse ox monitoring and qualifies for BiPAP. Prescription will be provided to catalytic case operator. Unfortunately [facility] will not accept the patient due to him being on chronic methadone. Other [facility] are looking at accepting him for subacute rehab. Patient has been afebrile, heart rate 62, blood pressure 92/53, pulse ox 92% on 5 L nasal cannula. Blood pressures have been on the low side and patient started on lisinopril yesterday as well as Diamox. Repeat blood work reveals WBC of 5, hemoglobin 8.5, platelet count 217. Sodium 137, potassium 3.7, chloride 88, CO2 41, BUN 38 creatinine 2.59. Patient is continued on Lasix 40 mg IV every 8 hours. 09/25: Patient is afebrile, heart rate 63, blood pressure 118/68, pulse ox 94% on 5 L nasal cannula. Patient did utilize BiPAP during the night. Repeat blood work reveals hemoglobin of 8.2, sodium 135, potassium 3.9, chloride 90, CO2 39, BUN 45 and creatinine 2.49 blood sugars running in the 200s up to 320 at lunch today. NovoLog scale and Levemir 10 units at bedtime added. Hemoglobin A1c on September [address] Goldstein he is discontinue Lasix as of yesterday and may consider adding in midodrine. Patient has not been accepted at [facility] but [facility] has accepted the patient. We will also ask for palliati ve care to follow the patient at the senior care. Anticipate discharge to the senior care on Sunday. Patient is scheduled for repeat chest x-ray. Objective - Vital Signs Vital signs: Vital Signs Temp 98.3 F 09/26/19 04:00 Pulse 51 L 09/26/19 04:00 Resp 18 09/26/19 04:00 BP 104/63 09/26/19 04:00 Pulse Ox 96 09/26/19 04:00 Intake & Output 09/25/19 09/26/19 09/26/19 18:59 06:59 18:59 Intake Total 1810 30 240 Output Total 1600 600 Balance 210 -570 240 Weight 88.5 kg Intake: IV 50 30 Invasive Line 1 50 30 Oral 1760 240 Output: Urine 1600 600 Other: Voiding Method Toilet Toilet Urinal Urinal # Voids 1 - Exam Review of Systems Constitutional: Denies chills, Denies lethargy, Denies weakness, denies fever Eyes: denies blurred vision, denies bulging eye, denies decreased vision Ears, nose, mouth and throat: Denies dental pain, Denies dysphagia, Denies neck lump, Denies sore throat Cardiovascular: Reports decreased exercise tolerance, Reports dyspnea on exertion, Reports shortness of breath, reports edema, reports lower extremity edema, Denies chest pain, Denies lightheadedness, Denies rapid heart beat, Denies syncope Respiratory: Reports cough, Reports home oxygen, Denies congestion, Denies cough with sputum, reports sleep apnea, Denies snoring, Denies wheezing Gastrointestinal: Denies abdominal pain, Denies bloating, Denies BRBPR, Denies excessive gas, Denies heartburn, Denies melena, Denies nausea, Denies vomiting Genitourinary: Reports nocturia, Denies dysuria Musculoskeletal: Denies myalgias Musculoskeletal: absent: ankle pain, ankle stiffness, ankle swelling, elbow pain, elbow stiffness, elbow swelling, foot pain, foot stiffness, foot swelling, hand pain, hand stiffness, hand swelling, hip pain, hip stiffness, hip swelling, knee pain, knee stiffness, knee swelling, shoulder pain, shoulder stiffness, shoulder swelling, wrist pain, wrist stiffness, wrist swelling Integumentary: Denies pruritus, Denies rash, reports wound left ankle Neurological: Denies numbness, Denies weakness Psychiatric: Denies anxiety, Denies depression. Endocrine: Denies fatigue, Denies weight change Physical Examination Gen.: This is a 58-year-old obese male. Patient is resting in bed and currently appears to be in no respiratory distress at rest. HEENT: Head is atraumatic, normal cephalic, pupils were equal round reactive to light and accommodation, extraocular muscle movement were intact, mucous membranes of mouth dry. Neck: Supple, no JVP. Chest: Decreased breath sound at bilateral bases, there is an AICD located in the left upper precordium. Heart: First heart sound is depressed, second heart sounds normal, there is systolic ejection murmur 2/6 located in the left sternal border, there is AICD in the left upper precordium Abdomen: Soft, nontender, nondistended, positive bowel sounds. Extremities: Trace edema, no calf tenderness, dorsalis pedis +1 bilaterally. Small superficial wound to the left lateral ankle. No erythema, no significant drainage. Neurologic examination: Patient is awake alert and oriented 3, cranial nerves II-12 appear grossly intact, generalized weakness noted. - Labs CBC & Chem 7: 09/26/19 06:17 09/26/19 06:17 Labs: Abnormal Lab Results - Last 24 Hours (Table) 09/25/19 09/25/19 09/26/19 Range/Units 09:13 20:00 05:59 RBC (4.30-5.90) m/uL Hgb (13.0-17.5) gm/dL Hct (39.0-53.0) % MCV (80.0-100.0) fL RDW (11.5-15.5) % Sodium (137-145) mmol/L Chloride 88 L (98-107) mmol/L Carbon Dioxide 41 H* (22-30) mmol/L BUN 38 H (9-20) mg/dL Creatinine 2.59 H (0.66-1.25) mg/dL Glucose 113 H (74-99) mg/dL POC Glucose (mg/dL) 202 H 210 H (75-99) mg/dL Magnesium 2.4 H (1.6-2.3) mg/dL Total Protein 5.8 L (6.3-8.2) g/dL 09/26/19 09/26/19 Range/Units 06:17 06:17 RBC 2.41 L (4.30-5.90) m/uL Hgb 8.2 L (13.0-17.5) gm/dL Hct 25.2 L (39.0-53.0) % MCV 104.9 H (80.0-100.0) fL RDW 16.8 H (11.5-15.5) % Sodium 135 L (137-145) mmol/L Chloride 90 L (98-107) mmol/L Carbon Dioxide 39 H (22-30) mmol/L BUN 45 H (9-20) mg/dL Creatinine 2.49 H (0.66-1.25) mg/dL Glucose 140 H (74-99) mg/dL POC Glucose (mg/dL) (75-99) mg/dL Magnesium (1.6-2.3) mg/dL Total Protein (6.3-8.2) g/dL Assessment and Plan Plan: 1. Acute on chronic hypoxemic respiratory failure due to acute on chronic systolic heart failure, COPD. Continue DuoNeb treatment every 4 hours as needed, inhaled steroid twice daily, Lasix discontinued. Consult with cardiology, pulmonary medicine appreciated. Lisinopril 2.5 mg daily added. Repeat chest x-ray. 2. Acute kidney injury with chronic kidney disease stage 3. Consult with nephrology appreciated. Lasix has been discontinued. Dr. Goldstein has added Diamox 250 mg IV every 12 hours. 3. Coronary artery disease status post coronary artery bypass graft with PCI and ischemic cardiomyopathy post AICD. Continue Coreg 3.125 mg orally twice every day, aspirin 81 mg daily. 4. COPD and moderate persistent asthma. Continue DuoNeb 3 mg nebulization, i nhaled steroids, Singulair 10 mg at bedtime, Claritin [address] Consult with [address] Gong. 5. Hypertension and hypertensive cardiovascular disease. Continue patient on carvedilol, lisinopril. 6. Hyperlipidemia. Continue Lipitor 40 mg orally once every day. 7. History of tobacco use and dependence. Patient quit 2018. 8. Chronic pain syndrome. Continue patient on methadone. 9. Recent treatment for MSSA bacteremia. Patient completed course of IV Kefzol. 10. Small ulcer to the left lateral ankle. Local wound care. 11. DVT prophylaxis. Heparin subcu. 12. GI prophylaxis. Pepcid 20 mg orally once every day. 13. Obstructive sleep apnea unable to tolerate CPAP. Continue BiPAP at night. CODE STATUS: DO NOT RESUSCITATE. Discharge plan: [facility] on Sunday with BiPAP. Palliative care ordered for the senior care as well. Impression and plan of care have been directed as dictated by the signing physician. Isabelle Andersen nurse practitioner acting as scribe for signing physician.
[2019-09-26] MEDS: ALPRAZolam 0.25 MG TAB PO PRN ×2 (13:26→23:19)
--- NOTE | 2019-09-26 14:35 | XR ---
EXAMINATION TYPE: XR chest 2V DATE OF EXAM: 09/26/2019 COMPARISON: 09/22/2019 HISTORY: Shortness of breath TECHNIQUE: Frontal and lateral views of the chest are obtained. FINDINGS: Scattered senescent parenchymal changes noted. Diminished lung volumes are seen bilaterally which [place] its evaluation. No evidence for infiltrate. No evidence for atelectasis. Heart size is stable. Mediastinal structures are stable and grossly unremarkable. No evidence for hilar prominence. Degenerative changes dorsal spine. IMPRESSION: 1. No evidence for acute pulmonary disease.Diminished lung volumes are seen bilaterally which limits evaluation.
[2019-09-26 16:35] LABS: Glucose,Whole Blood 153 mg/dL (75-99)
[2019-09-26] MEDS: INSULIN ASPART (NovoLOG) 100 UNIT/ML VIAL SQ SCH ×2 (16:35→21:33)
[2019-09-26 20:43] LABS: Glucose,Whole Blood 127 mg/dL (75-99)
[2019-09-26] MEDS: INSULIN DETEMIR (LEVEMIR) 100 UNIT/ML SYR SQ SCH (21:32)
[2019-09-26] MEDS: MONTELUKAST 10 MG TAB PO SCH (21:33)
[2019-09-27 06:01] LABS: Glucose,Whole Blood 130 mg/dL (75-99)
[2019-09-27] MEDS: INSULIN ASPART (NovoLOG) 100 UNIT/ML VIAL SQ SCH ×4 (06:05→21:42)
[2019-09-27] MEDS: CARVEDILOL 3.125 MG TAB PO SCH ×2 (06:16→17:32)
[2019-09-27 07:44] LABS: Calcium 9.3 mg/dL (8.4-10.2); Potassium 3.9 mmol/L (3.5-5.1)
[2019-09-27] MEDS: EZETIMIBE 10 MG TAB PO SCH (08:01)
[2019-09-27] MEDS: predniSONE 20 MG TAB PO SCH ×2 (08:01→21:41)
[2019-09-27] MEDS: ATORVASTATIN 40 MG TAB PO SCH (08:01)
[2019-09-27] MEDS: ASPIRIN 81 MG PO SCH (08:01)
[2019-09-27] MEDS: LORATADINE 10 MG TAB PO SCH (08:02)
[2019-09-27] MEDS: MULTIVITAMINS, THERA 1 EACH TAB PO SCH (08:02)
[2019-09-27] MEDS: FAMOTIDINE 20 MG TAB PO SCH (08:02)
[2019-09-27] MEDS: LISINOPRIL 2.5 MG TAB PO SCH (08:02)
[2019-09-27] MEDS: HEPARIN SODIUM,PORCINE 5,000 UNIT/ML 1 ML VIAL SQ SCH ×3 (08:02→23:08)
[2019-09-27] MEDS: METHADONE 5 MG TAB PO SCH (08:03)
[2019-09-27] MEDS: NICOTINE 21MG/24HR PATCH TRANSDERM SCH (08:03)
[2019-09-27] MEDS: SALMETEROL INHALATION SCH ×2 (08:03→21:43)
[2019-09-27] MEDS: FLUTICASONE PROPION INHALATION SCH ×2 (08:03→21:43)
[2019-09-27] MEDS: METHADONE 10 MG TAB PO SCH (08:04)
[2019-09-27] MEDS: IPRATROPIUM-ALBUTEROL 3 ML NEB INHALATION PRN ×2 (08:14→19:39)
--- NOTE | 2019-09-27 08:31 | P.PN ---
Subjective Progress Note Date: 09/27/19 Principal diagnosis: Acute on chronic hypoxic respiratory failure Acute systolic heart failure COPD severe Chronic persistent severe asthma Hypertension hypertensive cardiovascular disease Dyslipidemia nicotine abuse Recent history of MSSA bacteremia status post finishing therapy via PICC line 09/27/2019, patient seen and evaluated examined during rounds sitting upright in the bed breathing comfortably remains on 5 L oxygen saturation is low 90s, patient appears to be in good spirits did use BiPAP machine last night for almost 5-6 hours however he does require Xanax for initiation of BiPAP setting is 10/5 with oxygen keep lower situation 90% cough congestion is better patient has been diuresing very well 09/26/2019, patient seen and evaluated examined during the rounds labs reviewed medications reviewed care plan discussed patient is slightly somnolent but santosh usable, patient has some Xanax last night after of words she was able to use the BiPAP machine he uses almost 6-7 hours, she is slightly better he was likely related to lidocaine currently he is on 5 L oxygen she remains afebrile he will likely go to ECF 09/25/2019, patient seen eval examined during the rounds he remains on 5 L nasal cannula is still short of breath, has use BiPAP machine for some period time yesterday but not for extended period time I have discussed with her at length he needs to use it during the day as needed and at least night for continuous basis at least 5-6 hours. He understood wanted will try later on today 09/24/2019, patient seen and evaluated examined during the rounds labs reviewed medications reviewed care plan discussed with the primary service at length as well patient is more somnolent today lethargic but arousable, his CO2 is very high is still hypercapnic respiratory failure and severe COPD patient is a candidate for noninvasive ventilation have discussed with him at length he is agreeable for initiation of BiPAP for now we'll start the BiPAP throughout most of the day and will continue use history night and when necessary during day subsequently, Patient is well-known to me for end-stage lung disease secondary severe COPD and also component of chronic persistent severe asthma patient recently has been asked lysis for acute UT patient was discharged earlier the morning of this month, patient was in fact has the appointment with me in telemetry medicine at that time was doing well with his breathing treatment oxygen, in the last to 3 d ays to let increasing progressive shortness of breath and increasing edema no purulent sputum is present some dry nonproductive cough is present due to increasing swelling came into the hospital for further evaluation, respiratory status stable on 3 L the saturation was 100%, BNP however was over 3000 chest x- ray suggestive of elevated diaphragm baseline ejection fraction is very low patient has AICD, Objective - Vital Signs Vital signs: Vital Signs Temp 97.8 F 09/27/19 04:00 Pulse 88 09/27/19 08:23 Resp 18 09/27/19 04:00 BP 136/70 09/27/19 04:00 Pulse Ox 97 09/27/19 04:00 Intake & Output 09/26/19 09/27/19 09/27/19 18:59 06:59 18:59 Intake Total 1040 240 120 Output Total 1200 1850 Balance -160 -1610 120 Weight 89.1 kg Intake: IV 30 40 0.9 10 Invasive Line 1 20 Invasive Line 2 10 30 Oral 1010 200 120 Output: Urine 1200 1850 Other: Voiding Method Toilet Toilet Urinal Urinal - Exam - Constitutional General appearance: average body habitus, disheveled, morbidly obese - EENT Eyes: EOMI, PERRLA Ears: bilateral: normal - Neck Neck: normal ROM Thyroid: bilateral: normal size - Respiratory Respiratory: bilateral: diminished, rales - Cardiovascular Rhythm: regular Heart sounds: normal: S1, S2 - Gastrointestinal General gastrointestinal: normal bowel sounds - Neurologic Neurologic: CNII-XII intact - Musculoskeletal Musculoskeletal: gait normal, generalized weakness, strength equal bilaterally - Psychiatric Psychiatric: A&O x's 3, appropriate affect - Labs CBC & Chem 7: 09/26/19 06:17 09/27/19 06:57 Labs: Abnormal Lab Results - Last 24 Hours (Table) 09/26/19 09/26/19 09/26/19 Range/Units 11:50 16:34 20:36 Sodium (137-145) mmol/L Chloride (98-107) mmol/L Carbon Dioxide (22-30) mmol/L BUN (9-20) mg/dL Creatinine (0.66-1.25) mg/dL Glucose (74-99) mg/dL POC Glucose (mg/dL) 320 H 153 H 127 H (75-99) mg/dL 09/27/19 09/27/19 Range/Units 06:00 06:57 Sodium 136 L (137-145) mmol/L Chloride 93 L (98-107) mmol/L Carbon Dioxide 38 H (22-30) mmol/L BUN 42 H (9-20) mg/dL Creatinine 1.47 H (0.66-1.25) mg/dL Glucose 136 H (74-99) mg/dL POC Glucose (mg/dL) 130 H (75-99) mg/dL Assessment and Plan Assessment: Acute on chronic hypoxic and hypercapnic respiratory failure Altered mental status and lethargy due to likely high CO2 Acute systolic heart failure COPD severe Chronic persistent severe asthma Hypertension hypertensive cardiovascular disease Dyslipidemia nicotine abuse Recent history of MSSA bacteremia status post finishing therapy via PICC line Plan: continue patient on BiPAP 03/08, patient has been educated at length, patient needs to use BiPAP each night and when necessary during the day Reviewed arterial blood gas and symptoms consistent with compensated hypercapnic respiratory failure Arrange BiPAP likely at ECF and transferred to ECF if patient agreeable Continue bronchodilators Supplemental oxygen in between BiPAP Agree with gentle diuresis Continue maximal medical care for heart failure and coronary artery disease Patient is approved for Fasra on outpatient basis I've discussed with him at length about risk of covid 19 pneumonia and biologic agents patient understands that but is still want to proceed with it Further recommendations pending plan of care as per clinical response of the patient
--- NOTE | 2019-09-27 10:18 | P.PN ---
Subjective Progress Note Date: 09/27/19 This is a 58-year-old male patient of Drs. Bautista, Jing and Farideh with past medical history of coronary artery disease and status post coronary artery bypass grafting and previous angioplasty and stenting so that, heart catheterization in September 2018 revealed severe stenosis of the LAD with occluded first obtuse marginal branch, chronically occluded mid right coronary artery, mild to moderate disease of the proximal left circumflex, patent JACKSON to LAD, patent saphenous vein graft to the diagonal branch and to the right PDA, severely impaired left ventricular systolic function, ischemic cardiomyopathy EF of 20% status post AICD, chronic systolic heart failure as well as chronic obstructive pulmonary disease, chronic hypoxic respiratory failure on home O2, hypertension, hyperlipidemia, chronic pain syndrome on methadone, tobacco use and dependencequit September 2018, obstructive sleep apnea unable to tolerate CPAP. Patient was hospitalized August 29 through September 08 for acute respiratory failure secondary to acute on chronic systolic heart failure, acute kidney injury, MSSA bacteremia. JOVNAA revealed severe impaired left ventricular systolic function with EF of 20-25%, mildly dilated left atrium, aortic sclerosis with no evidence of stenosis, mitral annular calcification, moderate mitral with mild to moderate tricuspid regurgitation. No shunting. No evidence of vegetation. Mild a therosclerotic changes of the descending thoracic aorta. Patient was discharged home with homecare. He has completed course of IV Kefzol for 8 days. Patient states that he came back to the hospital because he "could not breathe." He states he has had water retention but does not know his weight change. He feels he has fluid retention all over his body. He states he has not been sleeping and feels he is very tired. He denies having any fever or chills. No chest pain. He is complaining of his ALLERGIES being bad and concerned that he needs to have Fasenra injection which has been approved by his insurance. He feels that he would be significantly better if he was getting this injection. Patient also complains of soreness/small wound to the left ankle area. Patient came into [facility] emergency center and found to be afebrile, blood pressure 137/88, pulse ox 100% on 3 L nasal cannula, heart rate 92. Hemoglobin 8.9, WBC 6.4. Chloride 83, CO2 47, BUN 44 and creatinine 1.62, blood sugar 120. D-dimer 0.6. Liver function tests normal. Troponin 0.078, proBNP 13,400. EKG was a pacer rhythm. Chest x-ray reveals chronic elevation of the right diaphragm with basilar atelectasis unchanged. No heart failure. Patient received 1 dose of IV Lasix 40 mg IV and admitted to the cardiac stepdown unit. Consults requested with cardiology, pulmonary medicine and n ephrology. 09/23: Patient has been seen by Dr. Gong and he states that the administration of Fasenra has been on hold due to Covid 19. We discussed need for BiPAP and we will plan to order ABGs and overnight pulse ox. Patient is agreeable to go to [facility] for subacute rehab. regional program manager and geriatric social worker following for this. Patient has been afebrile, heart rate 76, blood pressure 108/73, pulse ox 95% on 5 L nasal cannula. Repeat blood work reveals WBC of 5.3, hemoglobin 9.4, platelet count 236. Sodium 137, potassium 3.3 and will be replaced, chloride 85, CO2 52, BUN 31 creatinine 1.5. Cardiology is following the patient with recommendations to start the patient on KEON inhibitor and continue IV Lasix. Dr. Goldstein is added Diamox and plan to decrease Lasix. 09/24: Patient underwent a nighttime pulse ox monitoring and qualifies for BiPAP. Prescription will be provided to case assembler. Unfortunately [facility] will not accept the patient due to him being on chronic methadone. Other [facility] are looking at accepting him for subacute rehab. Patient has been afebrile, heart rate 62, blood pressure 92/53, pulse ox 92% on 5 L nasal cannula. Blood pressures have been on the low side and patient started on lisinopril yesterday as well as Diamox. Repeat blood work reveals WBC of 5, hemoglobin 8.5, platelet count 217. Sodium 137, potassium 3.7, chloride 88, CO2 41, BUN 38 creatinine 2.59. Patient is continued on Lasix 40 mg IV every 8 hours. 09/25: Patient is afebrile, heart rate 63, blood pressure 118/68, pulse ox 94% on 5 L nasal cannula. Patient did utilize BiPAP during the night. Repeat blood work reveals hemoglobin of 8.2, sodium 135, potassium 3.9, chloride 90, CO2 39, BUN 45 and creatinine 2.49 blood sugars running in the 200s up to 320 at lunch today. NovoLog scale and Levemir 10 units at bedtime added. Hemoglobin A1c on September [address] Goldstein he is discontinue Lasix as of yesterday and may consider adding in midodrine. Patient has not been accepted at [facility] but [facility] has accepted the patient. We will also ask for palliati ve care to follow the patient at the halfway. Anticipate discharge to the halfway on Sunday. Patient is scheduled for repeat chest x-ray. 09/26: Patient up ambulating and room this morning. Satting 97% on 5 L nasal cannula and using BiPAP at night. Vital signs are stable patient remains afebrile pulse rate 88, blood pressure 136/70. Repeat labs were reviewed, kidney function has improved BUN 42 creatinine 1.47. Blood sugars have been running between 1:30 to 150s. Lasix remains on hold per nephrology. Plan for anticipated discharge to medical [facility] on Sunday. Along with palliative care. Objective - Vital Signs Vital signs: Vital Signs Temp 97.8 F 09/27/19 04:00 Pulse 88 09/27/19 08:23 Resp 18 09/27/19 04:00 BP 136/70 09/27/19 04:00 Pulse Ox 97 09/27/19 04:00 Intake & Output 09/26/19 09/27/19 09/27/19 18:59 06:59 18:59 Intake Total 1040 240 120 Output Total 1200 1850 Balance -160 -1610 120 Weight 89.1 kg Intake: IV 30 40 0.9 10 Invasive Line 1 20 Invasive Line 2 10 30 Oral 1010 200 120 Output: Urine 1200 1850 Other: Voiding Method Toilet Toilet Urinal Urinal - Exam Constitutional: Denies chills, Denies lethargy, Denies weakness, denies fever Eyes: denies blurred vision, denies bulging eye, denies decreased vision Ears, nose, mouth and throat: Denies dental pain, Denies dysphagia, Denies neck lump, Denies sore throat Cardiovascular: Reports decreased exercise tolerance, Reports dyspnea on exertion, Reports shortness of breath, reports lower extremity edema, Denies chest pain, Denies lightheadedness, Denies rapid heart beat, Denies syncope Respiratory: Reports cough, Reports home oxygen, Denies congestion, Denies cough with sputum, reports sleep apnea, Denies snoring, Denies wheezing Gastrointestinal: Denies abdominal pain, Denies bloating, Denies BRBPR, Denies excessive gas, Denies heartburn, Denies melena, Denies nausea, Denies vomiting Genitourinary: Reports nocturia, Denies dysuria Musculoskeletal: Denies myalgias Musculoskeletal: absent: ankle pain, ankle stiffness, ankle swelling, elbow pain, elbow stiffness, elbow swelling, foot pain, foot stiffness, foot swelling, hand pain, hand stiffness, hand swelling, hip pain, hip stiffness, hip swelling, knee pain, knee stiffness, knee swelling, shoulder pain, shoulder stiffness, shoulder swelling, wrist pain, wrist stiffness, wrist swelling Integumentary: Denies pruritus, Denies rash, reports wound left ankle Neurological: Denies numbness, Denies weakness Psychiatric: Denies anxiety, Denies depression. Endocrine: Denies fatigue, Denies weight change Physical Examination Gen.: This is a 58-year-old obese male. Patient up in room and appears to be in no respiratory distress. HEENT: Head is atraumatic, normal cephalic, pupils were equal round reactive to light and accommodation, extraocular muscle movement were intact, mucous membranes of mouth dry. Neck: Supple, no JVP. Chest: Decreased breath sound at bilateral bases, there is an AICD located in the left upper precordium. Heart: First heart sound is depressed, second heart sounds normal, there is systolic ejection murmur 2/6 located in the left sternal border, there is AICD in the left upper precordium Abdomen: Soft, nontender, nondistended, positive bowel sounds. Extremities: Trace edema, no calf tenderness, dorsalis pedis +1 bilaterally. Small superficial wound to the left lateral ankle. No erythema, no significant drainage. Neurologic examination: Patient is awake alert and oriented 3, cranial nerves II-12 appear grossly intact, generalized weakness noted. - Labs CBC & Chem 7: 09/26/19 06:17 09/27/19 06:57 Labs: Abnormal Lab Results - Last 24 Hours (Table) 09/26/19 09/26/19 09/26/19 Range/Units 11:50 16:34 20:36 Sodium (137-145) mmol/L Chloride (98-107) mmol/L Carbon Dioxide (22-30) mmol/L BUN (9-20) mg/dL Creatinine (0.66-1.25) mg/dL Glucose (74-99) mg/dL POC Glucose (mg/dL) 320 H 153 H 127 H (75-99) mg/dL 09/27/19 09/27/19 Range/Units 06:00 06:57 Sodium 136 L (137-145) mmol/L Chloride 93 L (98-107) mmol/L Carbon Dioxide 38 H (22-30) mmol/L BUN 42 H (9-20) mg/dL Creatinine 1.47 H (0.66-1.25) mg/dL Glucose 136 H (74-99) mg/dL POC Glucose (mg/dL) 130 H (75-99) mg/dL Assessment and Plan Plan: 1. Acute on chronic hypoxemic respiratory failure due to acute on chronic systolic heart failure, COPD. Continue DuoNeb treatment every 4 hours as needed, inhaled steroid twice daily, Lasix discontinued. Consult with cardiology, pulmonary medicine appreciated. 2. Acute kidney injury with chronic kidney disease stage 3. Consult with nephrology appreciated. Lasix has been discontinued. 3. Coronary artery disease status post coronary artery bypass graft with PCI and ischemic cardiomyopathy post AICD. Continue Coreg 3.125 mg orally twice every day, aspirin 81 mg daily. 4. COPD and moderate persistent asthma. Continue DuoNeb 3 mg nebulization, inhaled steroids, Singulair 10 mg at bedtime, Claritin 10 mg daily. Continue prednisone 10 mg twice a day. Consult with Dr. Gong. 5. Hypertension and hypertensive cardiovascular disease. Continue patient on carvedilol, lisinopril. 6. Hyperlipidemia. Continue Lipitor 40 mg orally once every day. 7. History of tobacco use and dependence. Patient quit 2018. 8. Chronic pain syndrome. Continue patient on methadone. 9. Recent treatment for MSSA bacteremia. Patient completed course of IV Kefzol. 10. Small ulcer to the left lateral ankle. Local wound care. 11. DVT prophylaxis. Heparin subcu. 12. GI prophylaxis. Pepcid 20 mg orally once every day. 13. Obstructive sleep apnea unable to tolerate CPAP. Continue BiPAP at night. CODE STATUS: DO NOT RESUSCITATE. Discharge plan: [facility] on Sunday with BiPAP. Palliative care ordered for the halfway as well. Impression and plan of care have been directed as dictated by the signing physician. Yesenia Ramos nurse practitioner acting as scribe for signing physician.
[2019-09-27 12:11] LABS: Glucose,Whole Blood 241 mg/dL (75-99)
--- NOTE | 2019-09-27 12:55 | PN ---
PROGRESS NOTE Patient is seen for followup for acute kidney injury, initially cardiorenal and then diuretics were held as serum creatinine had increased quite a bit to 2.49. Today it is down to 1.47. Patient is sleeping. He is comfortable. Not in any acute distress. Blood pressure was 111/68, heart rate 57 per minute, he is afebrile. Examination of the heart S1, S2. Examination of the lungs, decreased breath sounds at the bases. Abdomen is soft, nontender. Examination lower extremities shows no significant edema. LABS: Show sodium 136, potassium 3.9, chloride 93, CO2 is 38, BUN 42, creatinine 1.47. ASSESSMENT: 1. Acute kidney injury, mainly cardiorenal, initially improved and then worsened secondary to ongoing diuresis. Currently renal function has improved significantly with holding off on diuretics. The patient is stable from Nephrology standpoint for discharge. He should resume his home dose of diuretics. 2. Chronic kidney disease, stage 3. Most recently serum creatinine is staying at 1.3- 1.5 mg/dL secondary to nephrosclerosis. 3. Cardiomyopathy, ejection fraction 20%-25%. 4. Hypokalemia. 5. Metabolic alkalosis secondary to diuretics, status post Diamox. PLAN: Resume low-dose oral loop diuretics by tomorrow. MMODL / IJN: [id number] /
--- NOTE | 2019-09-27 14:55 | P.PN ---
Subjective Patient is sitting at the edge of the bed. Mildly short of breath at rest. No chest discomfort Lasix for per nephrology He was admitted with acute on chronic systolic heart failure with COPD exacerbation Chronic kidney disease and hence Lasix hold. Minimal edema no JVD On examination blood pressure 111/68. His mercury pulse rate in the 50s af ebrile A) Breath sounds are reduced bilaterally Heart sounds are normal Impression Acute and chronic CHF CAD status post coronary artery bypass grafting Ischemic cardio myopathy Status post ICD Suggest Continue heart failure medications Discharge planning for Sunday Please call as needed Objective - Vital Signs Vital signs: Vital Signs Temp 98.2 F 09/27/19 08:00 Pulse 88 09/27/19 08:23 Resp 18 09/27/19 08:00 BP 111/68 09/27/19 08:00 Pulse Ox 99 09/27/19 08:00 Intake & Output 09/26/19 09/27/19 09/27/19 18:59 06:59 18:59 Intake Total 1040 240 250 Output Total 1200 1850 Balance -160 -1610 250 Weight 89.1 kg Intake: IV 30 40 10 0.9 10 Invasive Line 1 20 Invasive Line 2 10 30 10 Oral 1010 200 240 Output: Urine 1200 1850 Other: Voiding Method Toilet Toilet Toilet Urinal Urinal Urinal # Voids 0 - Labs CBC & Chem 7: 09/26/19 06:17 09/27/19 06:57 Labs: Abnormal Lab Results - Last 24 Hours (Table) 09/26/19 09/26/19 09/27/19 Range/Units 16:34 20:36 06:00 Sodium (137-145) mmol/L Chloride (98-107) mmol/L Carbon Dioxide (22-30) mmol/L BUN (9-20) mg/dL Creatinine (0.66-1.25) mg/dL Glucose (74-99) mg/dL POC Glucose (mg/dL) 153 H 127 H 130 H (75-99) mg/dL 09/27/19 09/27/19 Range/Units 06:57 11:58 Sodium 136 L (137-145) mmol/L Chloride 93 L (98-107) mmol/L Carbon Dioxide 38 H (22-30) mmol/L BUN 42 H (9-20) mg/dL Creatinine 1.47 H (0.66-1.25) mg/dL Glucose 136 H (74-99) mg/dL POC Glucose (mg/dL) 241 H (75-99) mg/dL
[2019-09-27 16:44] LABS: Glucose,Whole Blood 112 mg/dL (75-99)
[2019-09-27 20:20] LABS: Glucose,Whole Blood 372 mg/dL (75-99)
[2019-09-27] MEDS: MONTELUKAST 10 MG TAB PO SCH (21:42)
[2019-09-27] MEDS: INSULIN DETEMIR (LEVEMIR) 100 UNIT/ML SYR SQ SCH (21:42)
[2019-09-27] MEDS: ALPRAZolam 0.25 MG TAB PO PRN (23:08)
[2019-09-28 06:03] LABS: Glucose,Whole Blood 99 mg/dL (75-99)
[2019-09-28] MEDS: CARVEDILOL 3.125 MG TAB PO SCH ×2 (07:09→16:31)
[2019-09-28] MEDS: INSULIN ASPART (NovoLOG) 100 UNIT/ML VIAL SQ SCH ×4 (07:09→21:03)
--- NOTE | 2019-09-28 09:40 | P.PN ---
Subjective Progress Note Date: 09/28/19 This is a 58-year-old male patient of Drs. Bautista, Jing and Farideh with past medical history of coronary artery disease and status post coronary artery bypass grafting and previous angioplasty and stenting so that, heart catheterization in September 2018 revealed severe stenosis of the LAD with occluded first obtuse marginal branch, chronically occluded mid right coronary artery, mild to moderate disease of the proximal left circumflex, patent JACKSON to LAD, patent saphenous vein graft to the diagonal branch and to the right PDA, severely impaired left ventricular systolic function, ischemic cardiomyopathy EF of 20% status post AICD, chronic systolic heart failure as well as chronic obstructive pulmonary disease, chronic hypoxic respiratory failure on home O2, hypertension, hyperlipidemia, chronic pain syndrome on methadone, tobacco use and dependencequit September 2018, obstructive sleep apnea unable to tolerate CPAP. Patient was hospitalized August 29 through September 08 for acute respiratory failure secondary to acute on chronic systolic heart failure, acute kidney injury, MSSA bacteremia. JOVANA revealed severe impaired left ventricular systolic function with EF of 20-25%, mildly dilated left atrium, aortic sclerosis with no evidence of stenosis, mitral annular calcification, moderate mitral with mild to moderate tricuspid regurgitation. No shunting. No evidence of vegetation. Mild a therosclerotic changes of the descending thoracic aorta. Patient was discharged home with homecare. He has completed course of IV Kefzol for 8 days. Patient states that he came back to the hospital because he "could not breathe." He states he has had water retention but does not know his weight change. He feels he has fluid retention all over his body. He states he has not been sleeping and feels he is very tired. He denies having any fever or chills. No chest pain. He is complaining of his ALLERGIES being bad and concerned that he needs to have Fasenra injection which has been approved by his insurance. He feels that he would be significantly better if he was getting this injection. Patient also complains of soreness/small wound to the left ankle area. Patient came into [facility] emergency center and found to be afebrile, blood pressure 137/88, pulse ox 100% on 3 L nasal cannula, heart rate 92. Hemoglobin 8.9, WBC 6.4. Chloride 83, CO2 47, BUN 44 and creatinine 1.62, blood sugar 120. D-dimer 0.6. Liver function tests normal. Troponin 0.078, proBNP 13,400. EKG was a pacer rhythm. Chest x-ray reveals chronic elevation of the right diaphragm with basilar atelectasis unchanged. No heart failure. Patient received 1 dose of IV Lasix 40 mg IV and admitted to the cardiac stepdown unit. Consults requested with cardiology, pulmonary medicine and n ephrology. 09/23: Patient has been seen by Dr. Gong and he states that the administration of Fasenra has been on hold due to Covid 19. We discussed need for BiPAP and we will plan to order ABGs and overnight pulse ox. Patient is agreeable to go to [facility] for subacute rehab. manager banquet and social research assistant following for this. Patient has been afebrile, heart rate 76, blood pressure 108/73, pulse ox 95% on 5 L nasal cannula. Repeat blood work reveals WBC of 5.3, hemoglobin 9.4, platelet count 236. Sodium 137, potassium 3.3 and will be replaced, chloride 85, CO2 52, BUN 31 creatinine 1.5. Cardiology is following the patient with recommendations to start the patient on KEON inhibitor and continue IV Lasix. Dr. Goldstein is added Diamox and plan to decrease Lasix. 09/24: Patient underwent a nighttime pulse ox monitoring and qualifies for BiPAP. Prescription will be provided to case mgr. Unfortunately [facility] will not accept the patient due to him being on chronic methadone. Other [facility] looking at accepting him for subacute rehab. Patient has been afebrile, heart rate 62, blood pressure 92/53, pulse ox 92% on 5 L nasal cannula. Blood pressures have been on the low side and patient started on lisinopril yesterday as well as Diamox. Repeat blood work reveals WBC of 5, hemoglobin 8.5, platelet count 217. Sodium 137, potassium 3.7, chloride 88, CO2 41, BUN 38 creatinine 2.59. Patient is continued on Lasix 40 mg IV every 8 hours. 09/25: Patient is afebrile, heart rate 63, blood pressure 118/68, pulse ox 94% on 5 L nasal cannula. Patient did utilize BiPAP during the night. Repeat blood work reveals hemoglobin of 8.2, sodium 135, potassium 3.9, chloride 90, CO2 39, BUN 45 and creatinine 2.49 blood sugars running in the 200s up to 320 at lunch today. NovoLog scale and Levemir 10 units at bedtime added. Hemoglobin A1c on September [address] Goldstein he is discontinue Lasix as of yesterday and may consider adding in midodrine. Patient has not been accepted at [facility] but [facility] has accepted the patient. We will also ask for palliati ve care to follow the patient at the correction. Anticipate discharge to the correction on Sunday. Patient is scheduled for repeat chest x-ray. 09/26: Patient up ambulating and room this morning. Satting 97% on 5 L nasal cannula and using BiPAP at night. Vital signs are stable patient remains afebrile pulse rate 88, blood pressure 136/70. Repeat labs were reviewed, kidney function has improved BUN 42 creatinine 1.47. Blood sugars have been running between 1:30 to 150s. Lasix remains on hold per nephrology. Plan for anticipated discharge to medical [facility] on Sunday. Along with palliative care. 09/27: Patient seen and examined this morning. Awaiting placement to group home facility possibly Sunday. Patient remains on 5 L nasal cannula pulse ox 95%, patient is afebrile, heart rate 63, blood pressure 121/71. Patient tolerated BiPAP last night. We'll repeat labs in the morning. Blood sugars have been stable. Awaiting Dr. Bradshaw consult at this time. Objective - Vital Signs Vital signs: Vital Signs Temp 97.9 F 09/28/19 04:00 Pulse 63 09/28/19 04:00 Resp 18 09/28/19 04:00 BP 121/71 09/28/19 04:00 Pulse Ox 95 09/28/19 08:29 Intake & Output 09/27/19 09/28/19 09/28/19 18:59 06:59 18:59 Intake Total 270 20 220 Output Total 840 400 Balance 270 -820 -180 Weight 88.8 kg Intake: IV 30 20 0.9 10 Invasive Line 2 30 10 Oral 240 220 Output: Urine 840 400 Other: Voiding Method Toilet Toilet Urinal Urinal # Voids 0 1 - Exam Constitutional: Denies chills, Denies lethargy, Denies weakness, denies fever Eyes: denies blurred vision, denies bulging eye, denies decreased vision Ears, nose, mouth and throat: Denies dental pain, Denies dysphagia, Denies neck lump, Denies sore throat Cardiovascular: Reports decreased exercise tolerance, Reports dyspnea on exertion, Reports shortness of breath, reports lower extremity edema, Denies chest pain, Denies lightheadedness, Denies rapid heart beat, Denies syncope Respiratory: Reports cough, Reports home oxygen, Denies congestion, Denies cough with sputum, reports sleep apnea, Denies wheezing Gastrointestinal: Denies abdominal pain, Denies bloating, Denies BRBPR, Denies excessive gas, Denies heartburn, Denies melena, Denies nausea, Denies vomiting Genitourinary: Reports nocturia, Denies dysuria Musculoskeletal: Denies myalgias Musculoskeletal: absent: ankle pain, ankle stiffness, ankle swelling, elbow pain, elbow stiffness, elbow swelling, foot pain, foot stiffness, foot swelling, hand pain, hand stiffness, hand swelling, hip pain, hip stiffness, hip swelling, knee pain, knee stiffness, knee swelling, shoulder pain, shoulder stiffness, shoulder swelling, wrist pain, wrist stiffness, wrist swelling Integumentary: Denies pruritus, Denies rash, reports wound left ankle Neurological: Denies numbness, Denies weakness Psychiatric: Denies anxiety, Denies depression. Endocrine: Denies fatigue, Denies weight change Physical Examination Gen.: This is a 58-year-old obese male. Patient appears to be in no respiratory distress. HEENT: Head is atraumatic, normal cephalic, pupils were equal round reactive to light and accommodation, extraocular muscle movement were intact, mucous membranes moist. Neck: Supple, no JVP. Chest: Decreased breath sound at bilateral bases, there is an AICD located in the left upper precordium. Heart: First heart sound is depressed, second heart sounds normal, there is systolic ejection murmur 2/6 located in the left sternal border, there is AICD in the left upper precordium Abdomen: Soft, nontender, nondistended, positive bowel sounds. Extremities: Trace edema, no calf tenderness, dorsalis pedis +1 bilaterally. Small superficial wound to the left lateral ankle. No erythema, no significant drainage. Neurologic examination: Patient is awake alert and oriented 3, cranial nerves II-12 appear grossly intact, generalized weakness noted. - Labs CBC & Chem 7: 04/24/20 06:17 09/27/19 06:57 Labs: Abnormal Lab Results - Last 24 Hours (Table) 09/27/19 09/27/19 09/27/19 Range/Units 11:58 16:40 20:19 POC Glucose (mg/dL) 241 H 112 H 372 H (75-99) mg/dL Assessment and Plan Plan: 1. Acute on chronic hypoxemic respiratory failure due to acute on chronic systolic heart failure, COPD. Continue DuoNeb treatment every 4 hours as needed, inhaled steroid twice daily. Consult with cardiology, pulmonary medicine appreciated. 2. Acute kidney injury with chronic kidney disease stage 3. Consult with nephrology appreciated. Lasix has been discontinued. 3. Coronary artery disease status post coronary artery bypass graft with PCI and ischemic cardiomyopathy post AICD. Continue Coreg 3.125 mg orally twice every day, aspirin 81 mg daily. 4. COPD and moderate persistent asthma. Continue DuoNeb 3 mg nebulization, inhaled steroids, Singulair 10 mg at bedtime, Claritin 10 mg daily. Continue prednisone 10 mg twice a day. Consult with Dr. Gong. 5. Hypertension and hypertensive cardiovascular disease. Continue patient on carvedilol, lisinopril. 6. Hyperlipidemia. Continue Lipitor 40 mg orally once every day. 7. History of tobacco use and dependence. Patient quit 2018. 8. Chronic pain syndrome. Continue patient on methadone. 9. Recent treatment for MSSA bacteremia. Patient completed course of IV Kefzol. 10. Small ulcer to the left lateral ankle. Local wound care. 11. DVT prophylaxis. Heparin subcut. 12. GI prophylaxis. Pepcid 20 mg orally once every day. 13. Obstructive sleep apnea unable to tolerate CPAP. Continue BiPAP at night. CODE STATUS: DO NOT RESUSCITATE. Discharge plan: [facility] on Sunday with BiPAP. Palliative care o rdered for the correction as well. Impression and plan of care have been directed as dictated by the signing physician. Yesenia Ramos nurse practitioner acting as scribe for signing physician.
[2019-09-28] MEDS: ALPRAZolam 0.25 MG TAB PO PRN ×2 (10:15→23:04)
[2019-09-28] MEDS: METHADONE 5 MG TAB PO SCH (10:15)
[2019-09-28] MEDS: METHADONE 10 MG TAB PO SCH (10:16)
[2019-09-28] MEDS: predniSONE 20 MG TAB PO SCH ×2 (10:17→21:03)
[2019-09-28] MEDS: ATORVASTATIN 40 MG TAB PO SCH (10:18)
[2019-09-28] MEDS: EZETIMIBE 10 MG TAB PO SCH (10:18)
[2019-09-28] MEDS: ASPIRIN 81 MG PO SCH (10:18)
[2019-09-28] MEDS: LORATADINE 10 MG TAB PO SCH (10:18)
[2019-09-28] MEDS: FAMOTIDINE 20 MG TAB PO SCH (10:18)
[2019-09-28] MEDS: NICOTINE 21MG/24HR PATCH TRANSDERM SCH (10:18)
[2019-09-28] MEDS: MULTIVITAMINS, THERA 1 EACH TAB PO SCH (10:18)
[2019-09-28] MEDS: HEPARIN SODIUM,PORCINE 5,000 UNIT/ML 1 ML VIAL SQ SCH ×3 (10:19→23:04)
[2019-09-28] MEDS: LISINOPRIL 2.5 MG TAB PO SCH (10:29)
[2019-09-28 11:40] LABS: Glucose,Whole Blood 159 mg/dL (75-99)
--- NOTE | 2019-09-28 11:43 | PN ---
PROGRESS NOTE Patient is seen for followup for acute kidney injury associated with cardiorenal syndrome. Patient was admitted with volume overload, CHF. He was diuresed. However, diuretics were then held as renal function had worsened significantly. The patient is also maintained on low-dose KEON inhibitors at 2.5 mg of Zestril daily. He is currently feeling well. Denies any complaints. EXAMINATION: Today blood pressure is 121/71, heart rate 63 per minute, he is afebrile. Examination shows good air entry bilaterally. ABDOMEN: Soft, nontender. Legs do not show any edema. AXLE POLISHER exam grossly intact. LAB: Shows from yesterday sodium 136, potassium 3.9, BUN 42, creatinine 1.47. ASSESSMENT: 1. Acute kidney injury, cardiorenal, improved. The patient's creatinine had gone up secondary to diuresis, currently improving. Again, off diuretics. We can resume low-dose loop diuretics on discharge. 2. Chronic kidney disease stage 3 most recently serum creatinine staying at 1.3-1.5 mg/dL. Etiology is nephrosclerosis. 3. Cardiomyopathy, ejection fraction 20%-25%. 4. Hypokalemia, status post replacement. 5. Metabolic alkalosis secondary to diuretics, status post Diamox. PLAN: Check labs today and we can resume low-dose loop diuretics upon discharge. MMODL / IJN: [id number] /
--- NOTE | 2019-09-28 11:47 | P.PN ---
Subjective Progress Note Date: 09/28/19 Principal diagnosis: Acute on chronic hypoxic respiratory failure Acute systolic heart failure COPD severe Chronic persistent severe asthma Hypertension hypertensive cardiovascular disease Dyslipidemia nicotine abuse Recent history of MSSA bacteremia status post finishing therapy via PICC line 09/28/2019, patient seen eval examined during the rounds labs reviewed medicat ions reviewed has been on the BiPAP tolerating very well setting is 10 and 5 his oxygen of 5 L, patient is more awake and alert now still have ongoing shortness of breath but cough or sputum production has improved though 09/27/2019, patient seen and evaluated examined during rounds sitting upright in the bed breathing comfortably remains on 5 L oxygen saturation is low 90s, patient appears to be in good spirits did use BiPAP machine last night for almost 5-6 hours however he does require Xanax for initiation of BiPAP setting is 10/5 with oxygen keep lower situation 90% cough congestion is better patient has been diuresing very well 09/26/2019, patient seen and evaluated examined during the rounds labs reviewed medications reviewed care plan discussed patient is slightly somnolent but ar ousable, patient has some Xanax last night after of words she was able to use the BiPAP machine he uses almost 6-7 hours, she is slightly better he was likely related to lidocaine currently he is on 5 L oxygen she remains afebrile he will likely go to ECF 09/25/2019, patient seen eval examined during the rounds he remains on 5 L nasal cannula is still short of breath, has use BiPAP machine for some period time yesterday but not for extended period time I have discussed with her at length he needs to use it during the day as needed and at least night for continuous basis at least 5-6 hours. He understood wanted will try later on today 09/24/2019, patient seen and evaluated examined during the rounds labs reviewed medications reviewed care plan discussed with the primary service at length as well patient is more somnolent today lethargic but arousable, his CO2 is very high is still hypercapnic respiratory failure and severe COPD patient is a candidate for noninvasive ventilation have discussed with him at length he is agreeable for initiation of BiPAP for now we'll start the BiPAP throughout most of the day and will continue use history night and when necessary during day subsequently, Patient is well-known to me for end-stage lung disease secondary severe COPD and also component of chronic persistent severe asthma patient recently has been asked lysis for acute HI patient was discharged earlier the morning of this month, patient was in fact has the appointment with me in telemetry medicine at that time was doing well with his breathing treatment oxygen, in the last to 3 days to let increasing progressive shortness of breath and increasing edema no purulent sputum is present some dry nonproductive cough is present due to increasing swelling came into the hospital for further evaluation, respiratory status stable on 3 L the saturation was 100%, BNP however was over 3000 chest x- ray suggestive of elevated diaphragm baseline ejection fraction is very low patient has AICD, Objective - Vital Signs Vital signs: Vital Signs Temp 97.8 F 09/28/19 08:40 Pulse 78 09/28/19 08:40 Resp 20 09/28/19 08:40 BP 123/77 09/28/19 08:40 Pulse Ox 97 09/28/19 08:40 Intake & Output 09/27/19 09/28/19 09/28/19 18:59 06:59 18:59 Intake Total 270 20 220 Output Total 840 400 Balance 270 -820 -180 Weight 88.8 kg Intake: IV 30 20 0.9 10 Invasive Line 2 30 10 Oral 240 220 Output: Urine 840 400 Other: Voiding Method Toilet Toilet Urinal Urinal # Voids 0 1 - Exam - Constitutional General appearance: average body habitus, disheveled, morbidly obese - EENT Eyes: EOMI, PERRLA Ears: bilateral: normal - Neck Neck: normal ROM Thyroid: bilateral: normal size - Respiratory Respiratory: bilateral: diminished, rales - Cardiovascular Rhythm: regular Heart sounds: normal: S1, S2 - Gastrointestinal General gastrointestinal: normal bowel sounds - Neurologic Neurologic: CNII-XII intact - Musculoskeletal Musculoskeletal: gait normal, generalized weakness, strength equal bilaterally - Psychiatric Psychiatric: A&O x's 3, appropriate affect - Labs CBC & Chem 7: 09/26/19 06:17 09/27/19 06:57 Labs: Abnormal Lab Results - Last 24 Hours (Table) 09/27/19 09/27/19 09/27/19 Range/Units 11:58 16:40 20:19 POC Glucose (mg/dL) 241 H 112 H 372 H (75-99) mg/dL 09/28/19 Range/Units 11:35 POC Glucose (mg/dL) 159 H (75-99) mg/dL Assessment and Plan Assessment: Acute on chronic hypoxic and hypercapnic respiratory failure Altered mental status and lethargy due to likely high CO2 Acute systolic heart failure COPD severe Chronic persistent severe asthma Hypertension hypertensive cardiovascular disease Dyslipidemia nicotine abuse Recent history of MSSA bacteremia status post finishing therapy via PICC line Plan: Agree with plans for placement in ECF/rehab continue patient on BiPAP 03/08, patient has been educated at length, patient needs to use BiPAP each night and when necessary during the day Reviewed arterial blood gas and symptoms consistent with compensated hypercapnic respiratory failure Arrange BiPAP likely at ECF and transferred to ECF if patient agreeable Continue bronchodilators Supplemental oxygen in between BiPAP Agree with gentle diuresis Continue maximal medical care for heart failure and coronary artery disease Patient is approved for Fasenra on outpatient basis I've discussed with him at length about risk of covid 19 pneumonia and biologic agents patient understands that but is still want to proceed with it Further recommendations pending plan of care as per clinical response of the patient Time with Patient: Greater than 30
[2019-09-28] MEDS: IPRATROPIUM-ALBUTEROL 3 ML NEB INHALATION PRN ×2 (12:09→16:15)
[2019-09-28 12:23] LABS: Calcium 9.4 mg/dL (8.4-10.2)
[2019-09-28] MEDS: SALMETEROL INHALATION SCH ×2 (12:40→21:02)
[2019-09-28] MEDS: FLUTICASONE PROPION INHALATION SCH ×2 (12:40→21:02)
--- NOTE | 2019-09-28 15:45 | P.PN ---
Subjective Patient is doing well. He is better than yesterday. On examination his lungs sound clear. No JVD. No lower extremity edema He looks comfortable he does not appear short of breath. He denies shortness of breath or chest discomfort Blood pressure 123/77 mmHg, pulse rate in 70s Afebrile 97.8F Impression Acute on chronic systolic congestive heart failure CAD status post coronary artery After Ischemic cardio myopathy and and status post ICD Suggest Continue heart failure medications Objective - Vital Signs Vital signs: Vital Signs Temp 97.8 F 09/28/19 08:40 Pulse 88 09/28/19 12:30 Resp 20 09/28/19 12:30 BP 128/79 09/28/19 12:30 Pulse Ox 94 L 09/28/19 12:30 Intake & Output 09/27/19 09/28/19 09/28/19 18:59 06:59 18:59 Intake Total 270 20 220 Output Total 840 400 Balance 270 -820 -180 Weight 88.8 kg Intake: IV 30 20 0.9 10 Invasive Line 2 30 10 Oral 240 220 Output: Urine 840 400 Other: Voiding Method Toilet Toilet Urinal Urinal # Voids 0 1 - Labs CBC & Chem 7: 09/26/19 06:17 09/28/19 11:49 Labs: Abnormal Lab Results - Last 24 Hours (Table) 09/27/19 09/27/19 09/28/19 Range/Units 16:40 20:19 11:35 Chloride (98-107) mmol/L Carbon Dioxide (22-30) mmol/L BUN (9-20) mg/dL Glucose (74-99) mg/dL POC Glucose (mg/dL) 112 H 372 H 159 H (75-99) mg/dL 09/28/19 Range/Units 11:49 Chloride 95 L (98-107) mmol/L Carbon Dioxide 36 H (22-30) mmol/L BUN 33 H (9-20) mg/dL Glucose 100 H (74-99) mg/dL POC Glucose (mg/dL) (75-99) mg/dL
[2019-09-28 16:44] LABS: Glucose,Whole Blood 73 mg/dL (75-99)
[2019-09-28 20:43] LABS: Glucose,Whole Blood 155 mg/dL (75-99)
[2019-09-28] MEDS: INSULIN DETEMIR (LEVEMIR) 100 UNIT/ML SYR SQ SCH (21:03)
[2019-09-28] MEDS: MONTELUKAST 10 MG TAB PO SCH (21:03)
[2019-09-29 06:25] LABS: Glucose,Whole Blood 83 mg/dL (75-99)
[2019-09-29 06:27] LABS: Anisocytosis Slight; Basophils % (A) 0 %; Eosinophils % (A) 1 %; HCT 26.5 % (39.0-53.0); HGB 8.7 gm/dL (13.0-17.5); Hypochromasia Slight; Lymphocytes # (A) 0.8 k/uL (1.0-4.8); Lymphocytes % (A) 15 %; MCH 33.8 pg (25.0-35.0); MCV 102.3 fL (80.0-100.0); Macrocytosis Moderate; Mean Platelet Volume 7.2; Monocytes # (A) 0.4 k/uL (0-1.0); Monocytes % (A) 8 %; Neutrophils # (A) 3.9 k/uL (1.3-7.7); Neutrophils % (A) 74 %; Platelet Count 240 k/uL (150-450); RBC 2.59 m/uL (4.30-5.90); RDW 16.5 % (11.5-15.5); WBC 5.3 k/uL (3.8-10.6)
[2019-09-29] MEDS: CARVEDILOL 3.125 MG TAB PO SCH ×2 (06:43→17:08)
[2019-09-29] MEDS: INSULIN ASPART (NovoLOG) 100 UNIT/ML VIAL SQ SCH ×4 (06:43→21:52)
[2019-09-29 06:44] LABS: ALT 14 U/L (4-49); AST 26 U/L (17-59); African American GFR (CKD) >90 (>60 ml/min/1.73 sqM); Albumin 3.4 g/dL (3.5-5.0); Alkaline Phosphatase 59 U/L (38-126); Anion Gap 2 mmol/L; Blood Urea Nitrogen 27 mg/dL (9-20); Calcium 9.4 mg/dL (8.4-10.2); Carbon Dioxide 38 mmol/L (22-30); Chloride 99 mmol/L (98-107); Glucose 83 mg/dL (74-99); Non-African American GFR(CKD) 80 (>60 ml/min/1.73 sqM); Potassium 4.6 mmol/L (3.5-5.1); Sodium 139 mmol/L (137-145); Total Bilirubin 0.4 mg/dL (0.2-1.3); Total Protein 5.7 g/dL (6.3-8.2)
--- NOTE | 2019-09-29 08:02 | P.DS ---
Providers Date of admission: 09/22/19 23:46 Expected date of discharge: 09/30/19 Attending physician: Andres Mcdowell Consults: 09/22/19 23:46 Consult Physician Routine Consulting Provider: Cezar Vivas Consult Reason/Comments: CHF Do you want consulting provider notified?: Yes 09/23/19 09:11 Consult Physician Routine Consulting Provider: Jose L Gong Consult Reason/Comments: difficulty breathing Do you want consulting provider notified?: Yes 09/23/19 09:13 Consult Physician Routine Consulting Provider: Thien Magana Consult Reason/Comments: JEFF Do you want consulting provider notified?: Yes 09/26/19 14:17 Consult Physician Routine Consulting Provider: Marc Bradshaw Consult Reason/Comments: IP rehab Do you want consulting provider notified?: Yes Primary care physician: [facility] Course: This is a 58-year-old male patient of Drs. Bautista, Jing and Farideh with past medical history of coronary artery disease and status post coronary artery bypass grafting and previous angioplasty and stenting so that, heart catheterization in September 2018 revealed severe stenosis of the LAD with occluded first obtuse marginal branch, chronically occluded mid right coronary artery, mild to moderate disease of the proximal left circumflex, patent JACKSON to LAD, patent saphenous vein graft to the diagonal branch and to the right PDA, severely impaired left ventricular systolic function, ischemic cardiomyopathy EF of 20% status post AICD, chronic systolic heart failure as well as chronic obstructive pulmonary disease, chronic hypoxic respiratory failure on home O2, hypertension, hyperlipidemia, chronic pain syndrome on methadone, tobacco use and dependencequit September 2018, obstructive sleep apnea unable to tolerate CPAP. Patient was hospitalized August 29 through September 08 for acute respiratory failure secondary to acute on chronic systolic heart failure, acute kidney injury, MSSA bacteremia. JOVANA revealed severe impaired left ventricular systolic function with EF of 20-25%, mildly dilated left atrium, aortic sclerosis with no evidence of stenosis, mitral annular calcification, moderate mitral with mild to moderate tricuspid regurgitation. No shunting. No evidence of vegetation. Mild atherosclerotic changes of the descending thoracic aorta. Patient was discharged home with homecare. He has completed course of IV Kefzol for 8 days. Patient states that he came back to the hospital because he "could not breathe." He states he has had water retention but does not know his weight change. He feels he has fluid retention all over his body. He states he has not been sleeping and feels he is very tired. He denies having any fever or chills. No chest pain. He is complaining of his ALLERGIES being bad and concerned that he needs to have Fasenra injection which has been approved by his insurance. He feels that he would be significantly better if he was getting this injection. Patient also complains of soreness/small wound to the left ankle area. Patient came into [facility] emergency center and found to be afebrile, blood pressure 137/88, pulse ox 100% on 3 L nasal cannula, heart rate 92. Hemoglobin 8.9, WBC 6.4. Chloride 83, CO2 47, BUN 44 and creatinine 1.62, blood sugar 120. D-dimer 0.6. Liver function tests normal. Troponin 0.078, proBNP 13,400. EKG was a pacer rhythm. Chest x-ray reveals chronic elevation of the right diaphragm with basilar atelectasis unchanged. No heart failure. Patient received 1 dose of IV Lasix 40 mg IV and admitted to the cardiac stepdown unit. Consults requested with cardiology, pulmonary medicine and nephrology. 09/23: Patient has been seen by Dr. Gong and he states that the administration of Fasenra has been on hold due to Covid 19. We discussed need for BiPAP and we will plan to order ABGs and overnight pulse ox. Patient is agreeable to go to [facility] for subacute rehab. safety and health manager and long term care social worker following for this. Patient has been afebrile, heart rate 76, blood pressure 108/73, pulse ox 95% on 5 L nasal cannula. Repeat blood work reveals WBC of 5.3, hemoglobin 9.4, platelet count 236. Sodium 137, potassium 3.3 and will be replaced, chloride 85, CO2 52, BUN 31 creatinine 1.5. Cardiology is following the patient with recommendations to start the patient on KEON inhibitor and continue IV Lasix. Dr. Goldstein is added Diamox and plan to decrease Lasix. 09/24: Patient underwent a nighttime pulse ox monitoring and qualifies for BiPAP. Prescription will be provided to skilled nursing case manager. Unfortunately [facility] will not accept the patient due to him being on chronic methadone. Other nursing homes are looking at accepting him for subacute rehab. Patient has been afebrile, heart rate 62, blood pressure 92/53, pulse ox 92% on 5 L nasal cannula. Blood pressures have been on the low side and patient started on lisinopril yesterday as well as Diamox. Repeat blood work reveals WBC of 5, hemoglobin 8.5, platelet count 217. Sodium 137, potassium 3.7, chloride 88, CO2 41, BUN 38 creatinine 2.59. Patient is continued on Lasix 40 mg IV every 8 hours. 09/25: Patient is afebrile, heart rate 63, blood pressure 118/68, pulse ox 94% on 5 L nasal cannula. Patient did utilize BiPAP during the night. Repeat blood work reveals hemoglobin of 8.2, sodium 135, potassium 3.9, chloride 90, CO2 39, BUN 45 and creatinine 2.49 blood sugars running in the 200s up to 320 at lunch today. NovoLog scale and Levemir 10 units at bedtime added. Hemoglobin A1c on September [address] Goldstein he is discontinue Lasix as of yesterday and may consider adding in midodrine. Patient has not been accepted at [facility] but [facility] has accepted the patient. We will also ask for palliative care to follow the patient at the correction. Anticipate discharge to the correction on Sunday. Patient is scheduled for repeat chest x-ray. 09/26: Patient up ambulating and room this morning. Satting 97% on 5 L nasal cannula and using BiPAP at night. Vital signs are stable patient remains afebrile pulse rate 88, blood pressure 136/70. Repeat labs were reviewed, kidney function has improved BUN 42 creatinine 1.47. Blood sugars have been running between 1:30 to 150s. Lasix remains on hold per nephrology. Plan for anticipated discharge to [facility] on Sunday. Along with palliative care. 09/27: Patient seen and examined this morning. [facility]. Patient remains on 5 L nasal cannula pulse ox 95%, patient is afebrile, heart rate 63, blood pressure 121/71. Patient tolerated BiPAP last night. We'll repeat labs in the morning. Blood sugars have been stable. Awaiting Dr. Bradshaw consult at this time. 09/28: patient is afebrile, heart rate 69, blood pressure 138/78, pulse ox 96% on 4 L nasal cannula. Patient utilized BiPAP during the night. repeat WBC 0.3, hemoglobin 8.7, platelet count 240. CO2 is 38, BUN 27 creatinine 1.02. Blood sugars are between [address] Magana has recommended resuming Lasix 40 mg daily on September 30. patient was advised to monitor his weight closely and increase Lasix to 40 mg twice daily if edema or 3 pounds of weight gain. Patient to follow-up in one to 2 weeks. Patient has been evaluated by Dr. Bradshaw and does not meet criteria for inpatient rehab. Social work is Finding subacute rehab for the patient. Dr. Collins may accept the patient at [facility] but awaiting additional information at this point. Anticipate possible discharge tomorrow. 09/29: Patient's breathing status is currently stable. He has been afebrile, heart rate 73, blood pressure 128/77, pulse ox 97% on 5 L nasal cannula. Repeat coronavirus is negative. Patient's insurance has authorized subacute rehab. Patient will be discharged to [facility] under the care of Dr. Liz in stable condition. Discharge diagnoses: 1. Acute on chronic hypoxemic respiratory failure due to acute on chronic systolic heart failure, COPD. 2. Acute kidney injury with chronic kidney disease stage 3. 3. Coronary artery disease status post coronary artery bypass graft with PCI and ischemic cardiomyopathy post AICD. 4. COPD and moderate persistent asthma. 5. Hypertension and hypertensive cardiovascular disease. 6. Hyperlipidemia. 7. History of tobacco use and dependence. Patient quit 2018. 8. Chronic pain syndrome. 9. Recent treatment for MSSA bacteremia. 10. Small decubitus ulcer to the left lateral ankle. 11. Obstructive sleep apnea unable to tolerate CPAP. Continue BiPAP at night. 12. COVID-19 infection ruled out Discharge plan: [facility] under the care of Dr. Conner Impression and plan of care have been directed as dictated by the signing physician. Yesenia Ramos nurse practitioner acting as scribe for signing physician. Patient Condition at Discharge: Good Plan - Discharge Summary Discharge Rx Participant: Yes New Discharge Prescriptions: New Aspirin 81 mg PO DAILY #0 chew Benzocaine/Menthol Lozeng [Cepacol lozenge] 1 each MUCOUS MEM Q4HR PRN lozenge PRN Reason: Cough Carvedilol [Coreg] 3.125 mg PO AC-BID #60 tab Furosemide [Lasix] 40 mg PO DAILY tab Insulin Detemir (Levemir) [Levemir] 10 unit SQ HS syr INSULIN ASPART (NovoLOG) [NovoLOG (formulary)] 0 unit SQ ACHS vial Famotidine [Pepcid] 20 mg PO DAILY tab ALPRAZolam [Xanax] 0.25 mg PO BID PRN #6 tab PRN Reason: Anxiety Lisinopril [Zestril] 2.5 mg PO DAILY #30 tab Continue Atorvastatin [Lipitor] 40 mg PO DAILY #30 tab Nitroglycerin Sl Tabs [Nitrostat] 0.4 mg SUBLINGUAL Q5M PRN #25 tab PRN Reason: Chest Pain Nicotine 21Mg/24Hr Patch [Habitrol] 1 patch TRANSDERM DAILY #30 patch Montelukast [Singulair] 10 mg PO HS #30 tab Ipratropium/Albuterol Sulfate [Combivent Respimat Inhaler] 2 puff INHALATION RT-BID Albuterol Inhaler (Mhu) [Ventolin Hfa Inhaler (Mhu)] 1 - 2 puff INHALATION RT-QID PRN PRN Reason: Shortness Of Breath Methadone HCl [Methadone Intensol] 115 mg PO DAILY Multivitamins, Thera [Multivitamin (formulary)] 1 tab PO DAILY Oxymetazoline 0.05% Nasl [place] [Afrin 0.05% Nasal [place]] 1 spray EA NOSTRIL DAILY PRN PRN Reason: Nasal Congestion Ezetimibe [Zetia] 10 mg PO DAILY Cetirizine HCl [Zyrtec] 10 mg PO DAILY Fluticasone Propion/Salmeterol [Wixela 250-50 Inhub] 1 puff INHALATION RT-BID Ipratropium-Albuterol Nebulize [Duoneb 0.5 mg-3 mg/3 ml Soln] 3 ml INHALATION RT-Q4H PRN PRN Reason: Shortness Of Breath predniSONE [Deltasone] 10 mg PO BID #0 Discontinued Furosemide [Lasix] 40 mg PO BID #60 tab Carvedilol [Coreg] 6.25 mg PO BID Discharge Medication List Atorvastatin [Lipitor] 40 mg PO DAILY #30 tab 08/31/16 [Rx] Nitroglycerin Sl Tabs [Nitrostat] 0.4 mg SUBLINGUAL Q5M PRN #25 tab 09/24/18 [Rx] Montelukast [Singulair] 10 mg PO HS #30 tab 09/27/18 [Rx] Nicotine 21Mg/24Hr Patch [Habitrol] 1 patch TRANSDERM DAILY #30 patch 09/27/18 [Rx] Ipratropium/Albuterol Sulfate [Combivent Respimat Inhaler] 2 puff INHALATION RT- BID 12/04/18 [History] Albuterol Inhaler (Mhu) [Ventolin Hfa Inhaler (Mhu)] 1 - 2 puff INHALATION RT- QID PRN 12/25/18 [History] Methadone HCl [Methadone Intensol] 115 mg PO DAILY 02/09/19 [History] Multivitamins, Thera [Multivitamin (formulary)] 1 tab PO DAILY 04/22/19 [History] Oxymetazoline 0.05% Nasl [place] [Afrin 0.05% Nasal [place]] 1 spray EA NOSTRIL DAILY PRN 04/22/19 [History] Cetirizine HCl [Zyrtec] 10 mg PO DAILY 08/30/19 [History] Ezetimibe [Zetia] 10 mg PO DAILY 08/30/19 [History] Fluticasone Propion/Salmeterol [Wixela 250-50 Inhub] 1 puff INHALATION RT-BID 08/30/19 [History] Ipratropium-Albuterol Nebulize [Duoneb 0.5 mg-3 mg/3 ml Soln] 3 ml INHALATION RT-Q4H PRN 08/30/19 [History] predniSONE [Deltasone] 10 mg PO BID #0 09/08/19 [Rx] ALPRAZolam [Xanax] 0.25 mg PO BID PRN #6 tab 09/30/19 [Rx] Aspirin 81 mg PO DAILY #0 chew 09/30/19 [Rx] Benzocaine/Menthol Lozeng [Cepacol lozenge] 1 each MUCOUS MEM Q4HR PRN lozenge 09/30/19 [Rx] Carvedilol [Coreg] 3.125 mg PO AC-BID #60 tab 09/30/19 [Rx] Famotidine [Pepcid] 20 mg PO DAILY tab 09/30/19 [Rx] Furosemide [Lasix] 40 mg PO DAILY tab 09/30/19 [Rx] INSULIN ASPART (NovoLOG) [NovoLOG (formulary)] 0 unit SQ ACHS vial 09/30/19 [Rx] Insulin Detemir (Levemir) [Levemir] 10 unit SQ HS syr 09/30/19 [Rx] Lisinopril [Zestril] 2.5 mg PO DAILY #30 tab 09/30/19 [Rx] Follow up Appointment(s)/Referral(s): Jame Bautista MD [Primary Care Provider] - 1 Week (after discharge from subacute rehab) Thien Magana DO [STAFF PHYSICIAN] - 2 Weeks Patient Instructions/Handouts: Heart Failure (DC) Activity/Diet/Wound Care/Special Instructions: Monitor weight daily and increase Lasix to 40 mg twice daily if worsening of edema for more than 3 pound weight gain. Discharge Disposition: TRANSFER TO SNF/ECF
[2019-09-29] MEDS: IPRATROPIUM-ALBUTEROL 3 ML NEB INHALATION PRN ×3 (08:21→20:47)
[2019-09-29] MEDS: LISINOPRIL 2.5 MG TAB PO SCH (08:52)
[2019-09-29] MEDS: METHADONE 5 MG TAB PO SCH (08:52)
[2019-09-29] MEDS: METHADONE 10 MG TAB PO SCH (08:53)
[2019-09-29] MEDS: ASPIRIN 81 MG PO SCH (08:54)
[2019-09-29] MEDS: MULTIVITAMINS, THERA 1 EACH TAB PO SCH (08:55)
[2019-09-29] MEDS: LORATADINE 10 MG TAB PO SCH (08:55)
[2019-09-29] MEDS: predniSONE 20 MG TAB PO SCH ×2 (08:55→21:52)
[2019-09-29] MEDS: FAMOTIDINE 20 MG TAB PO SCH (08:55)
[2019-09-29] MEDS: ATORVASTATIN 40 MG TAB PO SCH (08:55)
[2019-09-29] MEDS: HEPARIN SODIUM,PORCINE 5,000 UNIT/ML 1 ML VIAL SQ SCH ×3 (08:56→23:16)
[2019-09-29] MEDS: NICOTINE 21MG/24HR PATCH TRANSDERM SCH (08:56)
[2019-09-29] MEDS: EZETIMIBE 10 MG TAB PO SCH (08:56)
[2019-09-29] MEDS: ALPRAZolam 0.25 MG TAB PO PRN ×2 (08:58→23:16)
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
--- NOTE | 2019-09-29 10:05 | P.PN ---
Subjective Progress Note Date: 09/29/19 Principal diagnosis: Acute on chronic hypoxic respiratory failure Acute systolic heart failure COPD severe Chronic persistent severe asthma Hypertension hypertensive cardiovascular disease Dyslipidemia nicotine abuse Recent history of MSSA bacteremia status post finishing therapy via PICC line 09/29/2019, patient seen eval examined during the rounds labs reviewed medicat ions reviewed, patient is more awake and alert, denies any cough, shortness of breath however is consistently present slightly improved though, mental status is more clear, patient has been using BiPAP, last night he used more than 6 hours, his BiPAP setting is 10/5 with a rate of 15, otherwise he is on 5 L oxygen 09/28/2019, patient seen eval examined during the rounds labs reviewed medications reviewed has been on the BiPAP tolerating very well setting is 10 and 5 his oxygen of 5 L, patient is more awake and alert now still have ongoing shortness of breath but cough or sputum production has improved though 09/27/2019, patient seen and evaluated examined during rounds sitting upright in the bed breathing comfortably remains on 5 L oxygen saturation is low 90s, patient appears to be in good spirits did use BiPAP machine last night for almost 5-6 hours however he does require Xanax for initiation of BiPAP setting is 10/5 with oxygen keep lower situation 90% cough congestion is better patient has been diuresing very well 09/26/2019, patient seen and evaluated examined during the rounds labs reviewed medications reviewed care plan discussed patient is slightly somnolent but arousable, patient has some Xanax last night after of words she was able to use the BiPAP machine he uses almost 6-7 hours, she is slightly better he was likely related to lidocaine currently he is on 5 L oxygen she remains afebrile he will likely go to ECF 09/25/2019, patient seen eval examined during the rounds he remains on 5 L nasal cannula is still short of breath, has use BiPAP machine for some period time yesterday but not for extended period time I have discussed with her at length he needs to use it during the day as needed and at least night for continuous basis at least 5-6 hours. He understood wanted will try later on today 09/24/2019, patient seen and evaluated examined during the rounds labs reviewed medications reviewed care plan discussed with the primary service at length as kristopher thomson patient is more somnolent today lethargic but arousable, his CO2 is very high is still hypercapnic respiratory failure and severe COPD patient is a candidate for noninvasive ventilation have discussed with him at length he is agreeable for initiation of BiPAP for now we'll start the BiPAP throughout most of the day and will continue use history night and when necessary during day subsequently, Patient is well-known to me for end-stage lung disease secondary severe COPD and also component of chronic persistent severe asthma patient recently has been asked lysis for acute SC patient was discharged earlier the morning of this month, patient was in fact has the appointment with me in telemetry medicine at that time was doing well with his breathing treatment oxygen, in the last to 3 days to let increasing progressive shortness of breath and increasing edema no purulent sputum is present some dry nonproductive cough is present due to increasing swelling came into the hospital for further evaluation, respiratory status stable on 3 L the saturation was 100%, BNP however was over 3000 chest x- ray suggestive of elevated diaphragm baseline ejection fraction is very low patient has AICD, Objective - Vital Signs Vital signs: Vital Signs Temp 98.5 F 09/29/19 04:00 Pulse 76 09/29/19 08:32 Resp 15 09/29/19 04:00 BP 94/54 09/29/19 04:00 Pulse Ox 98 09/29/19 04:00 Intake & Output 09/28/19 09/29/19 09/29/19 18:59 06:59 18:59 Intake Total 580 250 Output Total 400 300 Balance 180 -50 Weight 88.5 kg Intake: IV 10 0.9 10 Oral 580 240 Output: Urine 400 300 Other: Voiding Method Toilet Urinal # Voids 2 1 - Exam - Constitutional General appearance: average body habitus, disheveled, morbidly obese - EENT Eyes: EOMI, PERRLA Ears: bilateral: normal - Neck Neck: normal ROM Thyroid: bilateral: normal size - Respiratory Respiratory: bilateral: diminished, rales - Cardiovascular Rhythm: regular Heart sounds: normal: S1, S2 - Gastrointestinal General gastrointestinal: normal bowel sounds - Neurologic Neurologic: CNII-XII intact - Musculoskeletal Musculoskeletal: gait normal, generalized weakness, strength equal bilaterally - Psychiatric Psychiatric: A&O x's 3, appropriate affect - Labs CBC & Chem 7: 09/29/19 05:58 09/29/19 05:58 Labs: Abnormal Lab Results - Last 24 Hours (Table) 09/28/19 09/28/19 09/28/19 Range/Units 11:35 11:49 16:42 RBC (4.30-5.90) m/uL Hgb (13.0-17.5) gm/dL Hct (39.0-53.0) % MCV (80.0-100.0) fL RDW (11.5-15.5) % Lymphocytes # (1.0-4.8) k/uL Chloride 95 L (98-107) mmol/L Carbon Dioxide 36 H (22-30) mmol/L BUN 33 H (9-20) mg/dL Glucose 100 H (74-99) mg/dL POC Glucose (mg/dL) 159 H 73 L (75-99) mg/dL Total Protein (6.3-8.2) g/dL Albumin (3.5-5.0) g/dL 09/28/19 09/29/19 09/29/19 Range/Units 20:41 05:58 05:58 RBC 2.59 L (4.30-5.90) m/uL Hgb 8.7 L (13.0-17.5) gm/dL Hct 26.5 L (39.0-53.0) % MCV 102.3 H (80.0-100.0) fL RDW 16.5 H (11.5-15.5) % Lymphocytes # 0.8 L (1.0-4.8) k/uL Chloride (98-107) mmol/L Carbon Dioxide 38 H (22-30) mmol/L BUN 27 H (9-20) mg/dL Glucose (74-99) mg/dL POC Glucose (mg/dL) 155 H (75-99) mg/dL Total Protein 5.7 L (6.3-8.2) g/dL Albumin 3.4 L (3.5-5.0) g/dL Assessment and Plan Assessment: Acute on chronic hypoxic and hypercapnic respiratory failure Altered mental status and lethargy due to likely high CO2/metabolic encephalopathy continued to get better on daily use of BiPAP each night and when necessary during the day Acute systolic heart failure COPD severe Chronic persistent severe asthma Hypertension hypertensive cardiovascular disease Dyslipidemia nicotine abuse Recent history of MSSA bacteremia status post finishing therapy via PICC line Plan: Agree with plans for placement in ECF/rehab continue patient on BiPAP 03/08, patient has been educated at length, patient needs to use BiPAP each night and when necessary during the day Reviewed arterial blood gas and symptoms consistent with compensated hypercapnic respiratory failure Arrange BiPAP likely at ECF and transferred to ECF if patient agreeable Continue bronchodilators Supplemental oxygen in between BiPAP Agree with gentle diuresis Continue maximal medical care for heart failure and coronary artery disease Patient is approved for [facility] on outpatient basis I've discussed with him at length about risk of covid 19 pneumonia and biologic agents patient understands that but is still want to proceed with it Further recommendations pending plan of care as per clinical response of the patient Time with Patient: Greater than 30
--- NOTE | 2019-09-29 10:37 | P.PN ---
Subjective Patient is seen in follow-up for acute kidney injury. Renal function is better. Diuretics are held. No chest pain or shortness of breath at this time. Vital signs are stable. General: The patient appeared well nourished and normally developed. HEENT: Head exam is unremarkable. Neck is without jugular venous distension. LUNGS: Lungs are clear to auscultation and percussion. Breath sounds decreased. HEART: Rate and Rhythm are regular. First and second heart sounds normal. No murmurs, rubs or gallops. ABDOMEN: Nontender, nondistended. EXTREMITITES: No clubbing, cyanosis, or edema. Objective - Vital Signs Vital signs: Vital Signs Temp 97.9 F 09/29/19 08:00 Pulse 76 09/29/19 08:32 Resp 16 09/29/19 08:00 BP 114/70 09/29/19 08:00 Pulse Ox 98 09/29/19 04:00 Intake & Output 09/28/19 09/29/19 09/29/19 18:59 06:59 18:59 Intake Total 580 250 Output Total 400 300 Balance 180 -50 Weight 88.5 kg Intake: IV 10 0.9 10 Oral 580 240 Output: Urine 400 300 Other: Voiding Method Toilet Urinal # Voids 2 1 - Labs CBC & Chem 7: 09/29/19 05:58 09/29/19 05:58 Labs: Abnormal Lab Results - Last 24 Hours (Table) 09/28/19 09/28/19 09/28/19 Range/Units 11:35 11:49 16:42 RBC (4.30-5.90) m/uL Hgb (13.0-17.5) gm/dL Hct (39.0-53.0) % MCV (80.0-100.0) fL RDW (11.5-15.5) % Lymphocytes # (1.0-4.8) k/uL Chloride 95 L (98-107) mmol/L Carbon Dioxide 36 H (22-30) mmol/L BUN 33 H (9-20) mg/dL Glucose 100 H (74-99) mg/dL POC Glucose (mg/dL) 159 H 73 L (75-99) mg/dL Total Protein (6.3-8.2) g/dL Albumin (3.5-5.0) g/dL 09/28/19 09/29/19 09/29/19 Range/Units 20:41 05:58 05:58 RBC 2.59 L (4.30-5.90) m/uL Hgb 8.7 L (13.0-17.5) gm/dL Hct 26.5 L (39.0-53.0) % MCV 102.3 H (80.0-100.0) fL RDW 16.5 H (11.5-15.5) % Lymphocytes # 0.8 L (1.0-4.8) k/uL Chloride (98-107) mmol/L Carbon Dioxide 38 H (22-30) mmol/L BUN 27 H (9-20) mg/dL Glucose (74-99) mg/dL POC Glucose (mg/dL) 155 H (75-99) mg/dL Total Protein 5.7 L (6.3-8.2) g/dL Albumin 3.4 L (3.5-5.0) g/dL Assessment and Plan Plan: Assessment: 1. Acute kidney injury mostly prerenal secondary to diuresis. Improved. Creatinine 1.02 today. 2. Chronic kidney disease stage III with baseline creatinine in the range of 1.3-1.5 secondary to cardiorenal syndrome. 3. Chronic systolic CHF with ejection fraction of 20-25% with moderate mitral regurgitation. 4. Insulin-dependent diabetes mellitus. Plan: Start Lasix 40 mg once daily on September 30. I advised him to monitor his weight closely and to increase Lasix to 40 mg twice daily if notices worsening of edema for more than 3 pound weight gain. Follow up outpatient in 1-2 weeks.
[2019-09-29 12:00] LABS: Glucose,Whole Blood 131 mg/dL (75-99)
--- NOTE | 2019-09-29 14:19 | P.PN ---
Subjective Progress Note Date: 09/29/19 This is a 58-year-old male patient of Drs. Bautista, Jing and Farideh with past medical history of coronary artery disease and status post coronary artery bypass grafting and previous angioplasty and stenting so that, heart catheterization in September 2018 revealed severe stenosis of the LAD with occluded first obtuse marginal branch, chronically occluded mid right coronary artery, mild to moderate disease of the proximal left circumflex, patent JACKSON to LAD, patent saphenous vein graft to the diagonal branch and to the right PDA, severely impaired left ventricular systolic function, ischemic cardiomyopathy EF of 20% status post AICD, chronic systolic heart failure as well as chronic obstructive pulmonary disease, chronic hypoxic respiratory failure on home O2, hypertension, hyperlipidemia, chronic pain syndrome on methadone, tobacco use and dependencequit September 2018, obstructive sleep apnea unable to tolerate CPAP. Patient was hospitalized August 29 through September 08 for acute respiratory failure secondary to acute on chronic systolic heart failure, acute kidney injury, MSSA bacteremia. JOVANA revealed severe impaired left ventricular systolic function with EF of 20-25%, mildly dilated left atrium, aortic sclerosis with no evidence of stenosis, mitral annular calcification, moderate mitral with mild to moderate tricuspid regurgitation. No shunting. No evidence of vegetation. Mild a therosclerotic changes of the descending thoracic aorta. Patient was discharged home with homecare. He has completed course of IV Kefzol for 8 days. Patient states that he came back to the hospital because he "could not breathe." He states he has had water retention but does not know his weight change. He feels he has fluid retention all over his body. He states he has not been sleeping and feels he is very tired. He denies having any fever or chills. No chest pain. He is complaining of his ALLERGIES being bad and concerned that he needs to have Fasenra injection which has been approved by his insurance. He feels that he would be significantly better if he was getting this injection. Patient also complains of soreness/small wound to the left ankle area. Patient came into [facility] emergency center and found to be afebrile, blood pressure 137/88, pulse ox 100% on 3 L nasal cannula, heart rate 92. Hemoglobin 8.9, WBC 6.4. Chloride 83, CO2 47, BUN 44 and creatinine 1.62, blood sugar 120. D-dimer 0.6. Liver function tests normal. Troponin 0.078, proBNP 13,400. EKG was a pacer rhythm. Chest x-ray reveals chronic elevation of the right diaphragm with basilar atelectasis unchanged. No heart failure. Patient received 1 dose of IV Lasix 40 mg IV and admitted to the cardiac stepdown unit. Consults requested with cardiology, pulmonary medicine and n ephrology. 09/23: Patient has been seen by Dr. Gong and he states that the administration of Fasenra has been on hold due to Covid 19. We discussed need for BiPAP and we will plan to order ABGs and overnight pulse ox. Patient is agreeable to go to [facility] for subacute rehab. manager sterile and social work faculty member following for this. Patient has been afebrile, heart rate 76, blood pressure 108/73, pulse ox 95% on 5 L nasal cannula. Repeat blood work reveals WBC of 5.3, hemoglobin 9.4, platelet count 236. Sodium 137, potassium 3.3 and will be replaced, chloride 85, CO2 52, BUN 31 creatinine 1.5. Cardiology is following the patient with recommendations to start the patient on KEON inhibitor and continue IV Lasix. Dr. Goldstein is added Diamox and plan to decrease Lasix. 09/24: Patient underwent a nighttime pulse ox monitoring and qualifies for BiPAP. Prescription will be provided to family independence case manager. Unfortunately [facility] will not accept the patient due to him being on chronic methadone. Other [facility] are looking at accepting him for subacute rehab. Patient has been afebrile, heart rate 62, blood pressure 92/53, pulse ox 92% on 5 L nasal cannula. Blood pressures have been on the low side and patient started on lisinopril yesterday as well as Diamox. Repeat blood work reveals WBC of 5, hemoglobin 8.5, platelet count 217. Sodium 137, potassium 3.7, chloride 88, CO2 41, BUN 38 creatinine 2.59. Patient is continued on Lasix 40 mg IV every 8 hours. 09/25: Patient is afebrile, heart rate 63, blood pressure 118/68, pulse ox 94% on 5 L nasal cannula. Patient did utilize BiPAP during the night. Repeat blood work reveals hemoglobin of 8.2, sodium 135, potassium 3.9, chloride 90, CO2 39, BUN 45 and creatinine 2.49 blood sugars running in the 200s up to 320 at lunch today. NovoLog scale and Levemir 10 units at bedtime added. Hemoglobin A1c on September [address] Goldstein he is discontinue Lasix as of yesterday and may consider adding in midodrine. Patient has not been accepted at [facility] but [facility] has accepted the patient. We will also ask for palliati ve care to follow the patient at the halfway. Anticipate discharge to the halfway on Sunday. Patient is scheduled for repeat chest x-ray. 09/26: Patient up ambulating and room this morning. Satting 97% on 5 L nasal cannula and using BiPAP at night. Vital signs are stable patient remains afebrile pulse rate 88, blood pressure 136/70. Repeat labs were reviewed, kidney function has improved BUN 42 creatinine 1.47. Blood sugars have been running between 1:30 to 150s. Lasix remains on hold per nephrology. Plan for anticipated discharge to [facility] on Sunday. Along with palliative care. 09/27: Patient seen and examined this morning. Awaiting placement to half-way facility possibly Sunday. Patient remains on 5 L nasal cannula pulse ox 95%, patient is afebrile, heart rate 63, blood pressure 121/71. Patient tolerated BiPAP last night. We'll repeat labs in the morning. Blood sugars have been stable. Awaiting Dr. Bradshaw consult at this time. 09/28: patient is afebrile, heart rate 69, blood pressure 138/78, pulse ox 96% on 4 L nasal cannula. Patient utilized BiPAP during the night. repeat WBC 0.3, hemoglobin 8.7, platelet count 240. CO2 is 38, BUN 27 creatinine 1.02. Blood sugars are between [address] Magana has recommended resuming Lasix 40 mg daily on September 30. patient was advised to monitor his weight closely and increase Lasix to 40 mg twice daily if edema or 3 pounds of weight gain. Patient to follow-up in one to 2 weeks. Patient has been evaluated by Dr. Bradshaw and does not meet criteria for inpatient rehab. Social work is Finding subacute rehab for the patient. Dr. Collins may accept the patient at [facility] but awaiting additional information at this point. Anticipate possible discharge tomorrow. Objective - Vital Signs Vital signs: Vital Signs Temp 98.4 F 09/29/19 12:00 Pulse 69 09/29/19 12:00 Resp 16 09/29/19 12:00 BP 138/78 09/29/19 12:00 Pulse Ox 96 09/29/19 12:00 Intake & Output 09/28/19 09/29/19 09/29/19 18:59 06:59 18:59 Intake Total 580 250 Output Total 400 300 Balance 180 -50 Weight 88.5 kg Intake: IV 10 0.9 10 Oral 580 240 Output: Urine 400 300 Other: Voiding Method Toilet Urinal # Voids 2 1 # Bowel Movements 0 - Exam Review of Systems Constitutional: Denies chills, Denies lethargy, Denies weakness, denies fever Eyes: denies blurred vision, denies bulging eye, denies decreased vision Ears, nose, mouth and throat: Denies dental pain, Denies dysphagia, Denies neck lump, Denies sore throat Cardiovascular: Reports decreased exercise tolerance, Reports dyspnea on e xertion, Reports shortness of breath-at baseline, reports edema, reports lower extremity edema, Denies chest pain, Denies lightheadedness, Denies rapid heart beat, Denies syncope Respiratory: Reports cough, Reports home oxygen, Denies congestion, Denies cough with sputum, reports sleep apnea, Denies snoring, Denies wheezing Gastrointestinal: Denies abdominal pain, Denies bloating, Denies BRBPR, Denies excessive gas, Denies heartburn, Denies melena, Denies nausea, Denies vomiting Genitourinary: Reports nocturia, Denies dysuria Musculoskeletal: Denies myalgias Musculoskeletal: absent: ankle pain, ankle stiffness, ankle swelling, elbow pain, elbow stiffness, elbow swelling, foot pain, foot stiffness, foot swelling, hand pain, hand stiffness, hand swelling, hip pain, hip stiffness, hip swelling, knee pain, knee stiffness, knee swelling, shoulder pain, shoulder stiffness, shoulder swelling, wrist pain, wrist stiffness, wrist swelling Integumentary: Denies pruritus, Denies rash, reports wound left ankle Neurological: Denies numbness, Denies weakness Psychiatric: Denies anxiety, Denies depression. Endocrine: Denies fatigue, Denies weight change Physical Examination Gen.: This is a 58-year-old obese male. Patient is resting in bed and currently appears to be in no respiratory distress at rest. HEENT: Head is atraumatic, normal cephalic, pupils were equal round reactive to light and accommodation, extraocular muscle movement were intact, mucous membranes of mouth dry. Neck: Supple, no JVP. Chest: Decreased breath sound at bilateral bases, there is an AICD located in the left upper precordium. Heart: First heart sound is depressed, second heart sounds normal, there is systolic ejection murmur 2/6 located in the left sternal border, there is AICD in the left upper precordium Abdomen: Soft, nontender, nondistended, positive bowel sounds. Extremities: Trace edema, no calf tenderness, dorsalis pedis +1 bilaterally. Neurologic examination: Patient is awake alert and oriented 3, cranial nerves II-12 appear grossly intact, generalized weakness noted. - Labs CBC & Chem 7: 09/29/19 05:58 09/29/19 05:58 Labs: Abnormal Lab Results - Last 24 Hours (Table) 09/28/19 09/28/19 09/29/19 Range/Units 16:42 20:41 05:58 RBC 2.59 L (4.30-5.90) m/uL Hgb 8.7 L (13.0-17.5) gm/dL Hct 26.5 L (39.0-53.0) % MCV 102.3 H (80.0-100.0) fL RDW 16.5 H (11.5-15.5) % Lymphocytes # 0.8 L (1.0-4.8) k/uL Carbon Dioxide (22-30) mmol/L BUN (9-20) mg/dL POC Glucose (mg/dL) 73 L 155 H (75-99) mg/dL Total Protein (6.3-8.2) g/dL Albumin (3.5-5.0) g/dL 09/29/19 09/29/19 Range/Units 05:58 11:59 RBC (4.30-5.90) m/uL Hgb (13.0-17.5) gm/dL Hct (39.0-53.0) % MCV (80.0-100.0) fL RDW (11.5-15.5) % Lymphocytes # (1.0-4.8) k/uL Carbon Dioxide 38 H (22-30) mmol/L BUN 27 H (9-20) mg/dL POC Glucose (mg/dL) 131 H (75-99) mg/dL Total Protein 5.7 L (6.3-8.2) g/dL Albumin 3.4 L (3.5-5.0) g/dL Assessment and Plan Plan: 1. Acute on chronic hypoxemic respiratory failure due to acute on chronic systolic heart failure, COPD. Continue DuoNeb treatment every 4 hours as needed, inhaled steroid twice daily, Lasix to be resumed on Sunday. Consult with cardiology, pulmonary medicine appreciated. Continue Lisinopril 2.5 mg daily 2. Acute kidney injury with chronic kidney disease stage 3. Consult with nephrology appreciated. Lasix on hold. s/p Diamox. 3. Coronary artery disease status post coronary artery bypass graft with PCI and ischemic cardiomyopathy post AICD. Continue Coreg 3.125 mg orally twice every day, aspirin 81 mg daily. 4. COPD and moderate persistent asthma. Continue DuoNeb 3 mg nebulization, inhaled steroids, Singulair 10 mg at bedtime, Claritin [address] Gong. 5. Hypertension and hypertensive cardiovascular disease. Continue patient on carvedilol, lisinopril. 6. Hyperlipidemia. Continue Lipitor 40 mg orally once every day. 7. History of tobacco use and dependence. Patient quit 2018. 8. Chronic pain syndrome. Continue patient on methadone. 9. Recent treatment for MSSA bacteremia. Patient completed course of IV Kefzol. 10. Small ulcer to the left lateral ankle. Local wound care. 11. DVT prophylaxis. Heparin subcu. 12. GI prophylaxis. Pepcid 20 mg orally once every day. 13. Obstructive sleep apnea unable to tolerate CPAP. Continue BiPAP at night. 14. Generalized anxiety disorder. Continue Xanax or 0.25 mg twice daily as needed. CODE STATUS: DO NOT RESUSCITATE. Discharge plan: [facility] on Sunday with BiPAP. Palliative care ordered for the halfway as well. Dr. Collins may accept patient at [facility]. Impression and plan of care have been directed as dictated by the signing physician. Isabelle Andersen nurse practitioner acting as scribe for signing physician.
[2019-09-29 15:00] VITALS: BMI 29.6
[2019-09-29 16:49] LABS: Glucose,Whole Blood 202 mg/dL (75-99)
[2019-09-29 20:37] LABS: Glucose,Whole Blood 168 mg/dL (75-99)
[2019-09-29] MEDS: INSULIN DETEMIR (LEVEMIR) 100 UNIT/ML SYR SQ SCH (21:51)
[2019-09-29] MEDS: MONTELUKAST 10 MG TAB PO SCH (21:52)
[2019-09-29] MEDS: SALMETEROL INHALATION SCH (21:56)
[2019-09-29] MEDS: FLUTICASONE PROPION INHALATION SCH (21:56)
[2019-09-30 03:52] VITALS: TEMP 97.8
[2019-09-30 06:11] LABS: Glucose,Whole Blood 97 mg/dL (75-99)
[2019-09-30] MEDS: INSULIN ASPART (NovoLOG) 100 UNIT/ML VIAL SQ SCH (06:23)
[2019-09-30] MEDS: CARVEDILOL 3.125 MG TAB PO SCH (06:23)
[2019-09-30] MEDS: IPRATROPIUM-ALBUTEROL 3 ML NEB INHALATION PRN ×2 (07:35→11:14)
--- NOTE | 2019-09-30 08:26 | P.PN ---
Subjective Progress Note Date: 09/30/19 Principal diagnosis: Acute on chronic hypoxic respiratory failure Acute systolic heart failure COPD severe Chronic persistent severe asthma Hypertension hypertensive cardiovascular disease Dyslipidemia nicotine abuse Recent history of MSSA bacteremia status post finishing therapy via PICC line 09/30/2019, patient seen and evaluated examined bedside sitting upright on the bed breathing comfortably has used BiPAP machine last night overnight, feels better in terms of mental status less confusion, tolerating very well with Xanax before, getting more used to it, patient has a repeat covid with now negative results, patient is being evaluated for rehab placement on BiPAP 09/29/2019, patient seen eval examined during the rounds labs reviewed medications reviewed, patient is more awake and alert, denies any cough, shortness of breath however is consistently present slightly improved though, mental status is more clear, patient has been using BiPAP, last night he used more than 6 hours, his BiPAP setting is 10/5 with a rate of 15, otherwise he is on 5 L oxygen 09/28/2019, patient seen eval examined during the rounds labs reviewed medications reviewed has been on the BiPAP tolerating very well setting is 10 and 5 his oxygen of 5 L, patient is more awake and alert now still have ongoing shortness of breath but cough or sputum production has improved though 09/27/2019, patient seen and evaluated examined during rounds sitting upright in the bed breathing comfortably remains on 5 L oxygen saturation is low 90s, patient appears to be in good spirits did use BiPAP machine last night for almost 5-6 hours however he does require Xanax for initiation of BiPAP setting is 10/5 with oxygen keep lower situation 90% cough congestion is better patient has been diuresing very well 09/26/2019, patient seen and evaluated examined during the rounds labs reviewed medications reviewed care plan discussed patient is slightly somnolent but arousable, patient has some Xanax last night after of words she was able to use the BiPAP machine he uses almost 6-7 hours, she is slightly better he was likely related to lidocaine currently he is on 5 L oxygen she remains afebrile he will likely go to ECF 09/25/2019, patient seen eval examined during the rounds he remains on 5 L nasal cannula is still short of breath, has use BiPAP machine for some period time yesterday but not for extended period time I have discussed with her at length he needs to use it during the day as needed and at least night for continuous basis at least 5-6 hours. He understood wanted will try later on today 09/24/2019, patient seen and evaluated examined during the rounds labs reviewed medications reviewed care plan discussed with the primary service at length as well patient is more somnolent today lethargic but arousable, his CO2 is very high is still hypercapnic respiratory failure and severe COPD patient is a candidate for noninvasive ventilation have discussed with him at length he is agreeable for initiation of BiPAP for now we'll start the BiPAP throughout most of the day and will continue use history night and when necessary during day subsequently, Patient is well-known to me for end-stage lung disease secondary severe COPD and also component of chronic persistent severe asthma patient recently has been asked lysis for acute MN patient was discharged earlier the morning of this month, patient was in fact has the appointment with me in telemetry medicine at that time was doing well with his breathing treatment oxygen, in the last to 3 days to let increasing progressive shortness of breath and increasing edema no purulent sputum is present some dry nonproductive cough is present due to increasing swelling came into the hospital for further evaluation, respiratory status stable on 3 L the saturation was 100%, BNP however was over 3000 chest x- ray suggestive of elevated diaphragm baseline ejection fraction is very low patient has AICD, Objective - Vital Signs Vital signs: Vital Signs Temp 97.8 F 09/30/19 03:49 Pulse 76 09/30/19 07:46 Resp 20 09/30/19 03:49 BP 114/69 09/30/19 03:49 Pulse Ox 97 09/30/19 03:49 Intake & Output 09/29/19 09/30/19 09/30/19 18:59 06:59 18:59 Intake Total 358 350 Output Total 1200 Balance 358 -850 Weight 88.5 kg 89 kg Intake: Oral 358 350 Output: Urine 1200 Other: Voiding Method Toilet Urinal # Voids 1 # Bowel Movements 0 - Exam - Constitutional General appearance: average body habitus, disheveled, morbidly obese - EENT Eyes: EOMI, PERRLA Ears: bilateral: normal - Neck Neck: normal ROM Thyroid: bilateral: normal size - Respiratory Respiratory: bilateral: diminished, rales - Cardiovascular Rhythm: regular Heart sounds: normal: S1, S2 - Gastrointestinal General gastrointestinal: normal bowel sounds - Neurologic Neurologic: CNII-XII intact - Musculoskeletal Musculoskeletal: gait normal, generalized weakness, strength equal bilaterally - Psychiatric Psychiatric: A&O x's 3, appropriate affect - Labs CBC & Chem 7: 09/29/19 05:58 09/29/19 05:58 Labs: Abnormal Lab Results - Last 24 Hours (Table) 09/29/19 09/29/19 09/29/19 Range/Units 11:59 16:48 20:35 POC Glucose (mg/dL) 131 H 202 H 168 H (75-99) mg/dL Assessment and Plan Assessment: Acute on chronic hypoxic and hypercapnic respiratory failure Altered mental status and lethargy due to likely high CO2/metabolic encephalopathy continued to get better on daily use of BiPAP each night and when necessary during the day Acute systolic heart failure COPD severe Chronic persistent severe asthma Hypertension hypertensive cardiovascular disease Dyslipidemia nicotine abuse Recent history of MSSA bacteremia status post finishing therapy via PICC line Plan: Agree with plans for placement in ECF/rehab continue patient on BiPAP 03/08, patient has been educated at length, patient needs to use BiPAP each night and when necessary during the day Reviewed arterial blood gas and symptoms consistent with compensated hypercapnic respiratory failure Arrange BiPAP likely at ECF and transferred to ECF if patient agreeable Continue bronchodilators Supplemental oxygen in between BiPAP Agree with gentle diuresis Continue maximal medical care for heart failure and coronary artery disease Patient is approved for Fasenra on outpatient basis I've discussed with him at length about risk of covid 19 pneumonia and biologic agents patient understands that but is still want to proceed with it Further recommendations pending plan of care as per clinical response of the patient Time with Patient: Greater than 30
[2019-09-30 08:38] VITALS: RESP 18
[2019-09-30] MEDS: FAMOTIDINE 20 MG TAB PO SCH (08:38)
[2019-09-30] MEDS: MULTIVITAMINS, THERA 1 EACH TAB PO SCH (08:38)
[2019-09-30] MEDS: EZETIMIBE 10 MG TAB PO SCH (08:38)
[2019-09-30] MEDS: NICOTINE 21MG/24HR PATCH TRANSDERM SCH (08:38)
[2019-09-30] MEDS: LORATADINE 10 MG TAB PO SCH (08:38)
[2019-09-30] MEDS: LISINOPRIL 2.5 MG TAB PO SCH (08:39)
[2019-09-30] MEDS: METHADONE 5 MG TAB PO SCH (08:39)
[2019-09-30] MEDS: ASPIRIN 81 MG PO SCH (08:39)
[2019-09-30] MEDS: METHADONE 10 MG TAB PO SCH (08:39)
[2019-09-30] MEDS: ATORVASTATIN 40 MG TAB PO SCH (08:40)
[2019-09-30] MEDS: predniSONE 20 MG TAB PO SCH (08:40)
[2019-09-30] MEDS: HEPARIN SODIUM,PORCINE 5,000 UNIT/ML 1 ML VIAL SQ SCH (08:40)
--- NOTE | 2019-09-30 08:51 | P.PN ---
Subjective Patient is seen in follow-up for acute kidney injury. Renal function is better. Diuretics are held. No chest pain or shortness of breath at this time. No changes overnight. Vital signs are stable. General: The patient appeared well nourished and normally developed. HEENT: Head exam is unremarkable. Neck is without jugular venous distension. LUNGS: Lungs are clear to auscultation and percussion. Breath sounds decreased. HEART: Rate and Rhythm are regular. First and second heart sounds normal. No murmurs, rubs or gallops. ABDOMEN: Nontender, nondistended. EXTREMITITES: No clubbing, cyanosis, or edema. Objective - Vital Signs Vital signs: Vital Signs Temp 97.8 F 09/30/19 03:49 Pulse 73 09/30/19 08:00 Resp 18 09/30/19 08:00 BP 128/77 09/30/19 08:00 Pulse Ox 97 09/30/19 08:00 Intake & Output 09/29/19 09/30/19 09/30/19 18:59 06:59 18:59 Intake Total 358 350 Output Total 1200 Balance 358 -850 Weight 88.5 kg 89 kg Intake: Oral 358 350 Output: Urine 1200 Other: Voiding Method Toilet Urinal # Voids 1 # Bowel Movements 0 - Labs CBC & Chem 7: 09/29/19 05:58 09/29/19 05:58 Labs: Abnormal Lab Results - Last 24 Hours (Table) 09/29/19 09/29/19 09/29/19 Range/Units 11:59 16:48 20:35 POC Glucose (mg/dL) 131 H 202 H 168 H (75-99) mg/dL Assessment and Plan Plan: Assessment: 1. Acute kidney injury mostly prerenal secondary to diuresis. Improved. Creatinine 1.02 as of yesterday. 2. Chronic kidney disease stage III with baseline creatinine in the range of 1.3-1.5 secondary to cardiorenal syndrome. 3. Chronic systolic CHF with ejection fraction of 20-25% with moderate mitral regurgitation. 4. Insulin-dependent diabetes mellitus. Plan: Start Lasix 40 mg once daily on September 30. I advised him to monitor his weight closely and to increase Lasix to 40 mg twice daily if notices worsening of edema for more than 3 pound weight gain. Follow up outpatient in 1-2 weeks.
[2019-09-30] MEDS: ALPRAZolam 0.25 MG TAB PO PRN (09:50)
[2019-09-30 11:24] VITALS: PULSE 76
[2019-09-30 11:57] VITALS: BP 129/82
[2019-09-30 12:04] LABS: Glucose,Whole Blood 150 mg/dL (75-99)
[2019-10-01] MEDS ORDERED: FUROSEMIDE 40 MG TAB PO SCH (09:00)
--- NOTE | 2019-10-01 12:16 | CDI ---
Documentation Clarification Form Date: 10/01/19 From: Eunice Szymanski CCS Phone: If you have a question about this query, please contact Teresita Sexton, Varnish Inspector at [phone] between 8am and 5pm. Admit Date: 09/22/19 Discharge Date:09/30/19 Patient Name: Beto Goodman Visit Number: [id number] ATTENTION: The Clinical Documentation Specialists (CDI) and [facility] Coding Staff appreciate your assistance in clarifying documentation. Please respond to the clarification below the line at the bottom and electronically sign. The CDI & [facility] Coding staff will review the response and follow-up if needed. Please note: Queries are made part of the Legal Health Record. If you have any questions, please contact the author of this message via ITS. Dear Dr. Mcdowell, A small pressure ulcer to the left lateral ankle was documented in the H&P, PNs, DS. History/Risk Factors: HHD, CHF, DM, CAD, CKD, JEFF, ARF Clinical Indicators:Small decubitus ulcer to the left lateral ankle Location: Left lateral ankle Wound description: Small decubitus ulcer to the left lateral ankle Treatment: Local wound care Elements for accurate and compliant documentation of an ulcer: *The location/laterality of the ulcer *Etiology (decubitus/pressure, diabetic, PVD) *Stage I-IV, Unstageable, Suspected Deep Tissue Injury (To the deepest stage) *If the ulcer was present at admission (POA) or occurred after admission In your professional opinion, can you please clarify the stage of the pressure ulcer on the left lateral ankle? Stage 1 Pressure/Decubitus Ulcer (intact skin, non-blanching redness of local area) Stage 2 Pressure/Decubitus Ulcer (Partial thickness, loss of dermis, pink wound bed) xx Stage 3 Pressure/Decubitus Ulcer (Full thickness tissue loss) Stage 4 Pressure/Decubitus Ulcer (Full thickness tissue loss with exposed bone, tendon, or muscle. May have slough or eschar present) Unstageable Other condition, please specify Unable to determine MTDD
== END 2019-09-30 13:48 | DRG 291 ==
LOC: EC 20:57 → 3SCARD 23:46
PROVIDERS: ADMIT Internal Medicine Geriatric Medicine; ATTEND Internal Medicine Geriatric Medicine
PROC: 5A09457 Assistance with Respiratory Ventilation, 24-96 Consecutive Hours, Continuous Positive Airway Pressure (ICD-10-PCS; principal; 2019-09-24)
DX: I13.0 Hypertensive heart and chronic kidney disease with heart failure and stage 1 through stage 4 chronic kidney disease, or unspecified chronic kidney disease (principal); L89.523 Pressure ulcer of left ankle, stage 3; I50.23 Acute on chronic systolic (congestive) heart failure; J96.21 Acute and chronic respiratory failure with hypoxia; J96.22 Acute and chronic respiratory failure with hypercapnia; G93.41 Metabolic encephalopathy; N17.9 Acute kidney failure, unspecified; J44.1 Chronic obstructive pulmonary disease with (acute) exacerbation; J98.11 Atelectasis; E87.3 Alkalosis; Z20.828 Contact with and (suspected) exposure to other viral communicable diseases; E11.22 Type 2 diabetes mellitus with diabetic chronic kidney disease; N18.3 Chronic kidney disease, stage 3 (moderate); D63.1 Anemia in chronic kidney disease; Z51.5 Encounter for palliative care; I70.0 Atherosclerosis of aorta; I25.10 Atherosclerotic heart disease of native coronary artery without angina pectoris; E78.5 Hyperlipidemia, unspecified; I25.5 Ischemic cardiomyopathy; Z66 Do not resuscitate; G89.4 Chronic pain syndrome; M51.26 Other intervertebral disc displacement, lumbar region; G47.33 Obstructive sleep apnea (adult) (pediatric); I08.3 Combined rheumatic disorders of mitral, aortic and tricuspid valves; J45.50 Severe persistent asthma, uncomplicated; R40.2362 Coma scale, best motor response, obeys commands, at arrival to emergency department; R40.2142 Coma scale, eyes open, spontaneous, at arrival to emergency department; R40.2252 Coma scale, best verbal response, oriented, at arrival to emergency department; E66.9 Obesity, unspecified; R53.81 Other malaise; E87.6 Hypokalemia; F32.9 Major depressive disorder, single episode, unspecified; T50.1X5A Adverse effect of loop [high-ceiling] diuretics, initial encounter; I25.2 Old myocardial infarction; Z71.3 Dietary counseling and surveillance; Z68.29 Body mass index [BMI] 29.0-29.9, adult; Z79.899 Other long term (current) drug therapy; Z79.891 Long term (current) use of opiate analgesic; Z79.52 Long term (current) use of systemic steroids; Z95.810 Presence of automatic (implantable) cardiac defibrillator; Z99.81 Dependence on supplemental oxygen; Z86.14 Personal history of Methicillin resistant Staphylococcus aureus infection; Z87.891 Personal history of nicotine dependence; Z95.1 Presence of aortocoronary bypass graft; Z95.5 Presence of coronary angioplasty implant and graft; Z86.19 Personal history of other infectious and parasitic diseases; Z98.890 Other specified postprocedural states; Z80.0 Family history of malignant neoplasm of digestive organs; Z80.6 Family history of leukemia; Z87.828 Personal history of other (healed) physical injury and trauma
CPT/HCPCS: 36415; 36600; 71045; 71046; 80048; 80053; 81003; 82550; 82805; 83540; 83550; 83605; 83735; 83880; 84484; 85025; 85027; 85379; 85610; 85730; 87635; 93005; 94640; 94660; 94760; 94762; 96374; 99291

== ENCOUNTER 2019-11-13 15:47 | Inpatient (IN) | payer OTHER ==
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
[2019-11-13 16:18] LABS: Glucose,Whole Blood 138 mg/dL (75-99)
[2019-11-13] MEDS ORDERED: methylPREDNISolone SOD SUCCI 125 MG/2 ML VIAL IV STA (16:43)
[2019-11-13] MEDS ORDERED: ALBUTEROL NEBULIZED 2.5 MG/3 ML INHALATION STA (16:43)
[2019-11-13] MEDS ORDERED: IPRATROPIUM 0.5 MG/2.5 ML NEBU INHALATION STA (16:43)
[2019-11-13 17:02] LABS: Basophils % (A) 0 %; Eosinophils % (A) 0 %; HCT 30.8 % (39.0-53.0); HGB 9.8 gm/dL (13.0-17.5); Lymphocytes # (A) 1.1 k/uL (1.0-4.8); Lymphocytes % (A) 15 %; MCH 32.1 pg (25.0-35.0); MCHC 31.9 g/dL (31.0-37.0); MCV 100.7 fL (80.0-100.0); Macrocytosis Slight; Mean Platelet Volume 7.1; Monocytes # (A) 0.5 k/uL (0-1.0); Monocytes % (A) 7 %; Neutrophils # (A) 5.9 k/uL (1.3-7.7); Neutrophils % (A) 76 %; Platelet Count 235 k/uL (150-450); RBC 3.06 m/uL (4.30-5.90); RDW 14.8 % (11.5-15.5); WBC 7.7 k/uL (3.8-10.6)
[2019-11-13 17:07] LABS: Albumin 4.2 g/dL (3.5-5.0); Calcium 9.5 mg/dL (8.4-10.2); Potassium 3.7 mmol/L (3.5-5.1); Total Bilirubin 0.4 mg/dL (0.2-1.3); Total Protein 6.7 g/dL (6.3-8.2)
--- NOTE | 2019-11-13 17:13 | XR ---
EXAMINATION: XR chest 2V DATE AND TIME: 11/13/2019 5:05 PM CLINICAL INDICATION: PHH; difficulty breathing TECHNIQUE: AP and lateral COMPARISON: 09/26/2019 AP and lateral FINDINGS: Cardiac pacemaker, sternal sutures and mediastinal clips and EKG leads noted. The lungs are clear, as seen. The right hemidiaphragm is elevated, unchanged when compared to the prior study from 09/26/2019. There is no evidence of pneumothorax or pleural effusion. The cardiac silhouette is mildly enlarged, similar to the prior study. The remainder of the mediastin al silhouette is unremarkable. The skeletal structures and soft tissues are negative for acute findings. IMPRESSION: No definite acute radiographic process.
[2019-11-13 17:20] LABS: Prothrombin Time 10.5 sec (9.0-12.0)
[2019-11-13 17:31] LABS: Partial Thromboplastin Time 19.3 sec (22.0-30.0)
[2019-11-13] MEDS: IPRATROPIUM-ALBUTEROL 3 ML NEB INHALATION PRN (19:21)
[2019-11-13] MEDS ORDERED: NITROGLYCERIN SL TABS 0.4 MG TAB SUBLINGUAL PRN (22:34)
[2019-11-13] MEDS: methylPREDNISolone SOD SUCCI 125 MG/2 ML VIAL IV SCH (23:10)
[2019-11-14 06:43] LABS: Glucose,Whole Blood 260 mg/dL (75-99)
[2019-11-14] MEDS: CARVEDILOL 3.125 MG TAB PO SCH ×2 (06:50→17:26)
[2019-11-14] MEDS: INSULIN ASPART (NovoLOG) 100 UNIT/ML VIAL SQ SCH ×4 (06:50→21:28)
[2019-11-14] MEDS: methylPREDNISolone SOD SUCCI 125 MG/2 ML VIAL IV SCH (06:50)
[2019-11-14] MEDS: FORMOTEROL FUMARATE 20 MCG/2 ML NEBU INHALATION SCH ×2 (08:12→19:47)
[2019-11-14] MEDS: BUDESONIDE 1 MG/2 ML NEBU INHALATION SCH ×2 (08:12→19:47)
[2019-11-14] MEDS: IPRATROPIUM-ALBUTEROL 3 ML NEB INHALATION PRN (08:12)
[2019-11-14] MEDS: ATORVASTATIN 40 MG TAB PO SCH (08:58)
[2019-11-14] MEDS: guaiFENesin 600 MG TABLET.ER PO SCH ×2 (08:58→21:27)
[2019-11-14] MEDS: ASPIRIN 81 MG PO SCH (08:59)
[2019-11-14] MEDS: LORATADINE 10 MG TAB PO SCH (08:59)
[2019-11-14] MEDS: METHADONE 10 MG TAB PO SCH (08:59)
[2019-11-14] MEDS: FUROSEMIDE 40 MG TAB PO SCH ×3 (08:59→21:27)
[2019-11-14] MEDS: LISINOPRIL 2.5 MG TAB PO SCH (08:59)
[2019-11-14] MEDS: MULTIVITAMINS, THERA 1 EACH TAB PO SCH (08:59)
[2019-11-14] MEDS: EZETIMIBE 10 MG TAB PO SCH (08:59)
[2019-11-14] MEDS: METHADONE 5 MG TAB PO SCH (09:00)
[2019-11-14] MEDS: NICOTINE 21MG/24HR PATCH TRANSDERM SCH (09:00)
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
[2019-11-14 11:25] LABS: Glucose,Whole Blood 107 mg/dL (75-99)
[2019-11-14] MEDS: IPRATROPIUM-ALBUTEROL 3 ML NEB INHALATION SCH ×2 (13:03→19:48)
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
[2019-11-14] MEDS: methylPREDNISolone SOD SUCCI 40 MG/ML 1 ML VIAL IV SCH ×2 (15:27→23:13)
[2019-11-14 17:31] LABS: Glucose,Whole Blood 180 mg/dL (75-99)
[2019-11-14 20:14] LABS: Glucose,Whole Blood 228 mg/dL (75-99)
[2019-11-14] MEDS: MONTELUKAST 10 MG TAB PO SCH (21:27)
[2019-11-14] MEDS: HEPARIN SODIUM,PORCINE 5,000 UNIT/ML 1 ML VIAL SQ SCH (21:28)
[2019-11-14] MEDS: ALPRAZolam 0.25 MG TAB PO PRN (21:28)
[2019-11-15 06:07] LABS: Glucose,Whole Blood 269 mg/dL (75-99)
[2019-11-15] MEDS: PANTOPRAZOLE 40 MG TABLET PO SCH (06:32)
[2019-11-15] MEDS: CARVEDILOL 3.125 MG TAB PO SCH ×2 (06:32→17:07)
[2019-11-15] MEDS: INSULIN ASPART (NovoLOG) 100 UNIT/ML VIAL SQ SCH ×4 (06:32→20:36)
[2019-11-15] MEDS: IPRATROPIUM-ALBUTEROL 3 ML NEB INHALATION SCH ×3 (08:38→17:54)
[2019-11-15] MEDS: BUDESONIDE 1 MG/2 ML NEBU INHALATION SCH ×2 (08:38→17:55)
[2019-11-15] MEDS: FORMOTEROL FUMARATE 20 MCG/2 ML NEBU INHALATION SCH ×2 (08:38→17:55)
--- NOTE | 2019-11-15 09:47 | P.PN ---
Subjective Progress Note Date: 11/15/19 This is a 59-year-old male patient of Drs. Bautista, Jing and Farideh with past medical history of coronary artery disease and status post coronary artery bypass grafting and previous angioplasty and stenting so that, heart catheterization in September 2018 revealed severe stenosis of the LAD with occluded first obtuse marginal branch, chronically occluded mid right coronary artery, mild to moderate disease of the proximal left circumflex, patent JACKSON to LAD, patent saphenous vein graft to the diagonal branch and to the right PDA, severely impaired left ventricular systolic function, ischemic cardiomyopathy EF of 20-25% status post AICD, chronic systolic heart failure as well as chronic obstructive pulmonary disease, chronic hypoxic respiratory failure on home O2, hypertension, hyperlipidemia, chronic pain syndrome on methadone, tobacco use and dependencequit September 2018, obstructive sleep apnea unable to tolerate CPAP. Patient was last hospitalized at [facility] of this year which time he was treated for acute on chronic hypoxic respiratory failure secondary to acute on chronic systolic heart failure and COPD and acute kidney injury. During that hospitalization patient was started on BiPAP which seemed to be very helpful improved his difficulty breathing. He did tolerate it in the hospital for 3 nights in a row and at discharge he went to [facility] and was having a hard time tolerating but Xanax did help. He states he [place] 2 [place] [facility] [place] and then 3 days of physical therapy and then his insurance declined any further rehab. Patient was discharged home and apparently home care was set up but because patient's phone was not working he did not have a visit from home care. He is currently residing with several friends in an apartment. There are dogs that are new to his living situation which are exacerbating his difficulty breathing. He knew that he had ALLERGIES to dogs but did not realize how severe these ALLERGIES were. He has had increasing difficulty breathing for greater than 24 hours. He denies any fever or chills. He is concerned that the Fasenra injection which has been approved by his insurance and he has not received due to [place] [id number] limitations, with significantly improved his respiratory status. He is aware that this is not available in the hospital setting. He also gives history that he was walking outside in the street was uneven and he felt a snap in his left Achilles area. He is finding it very difficult to walk and has bruising to the foot as well. This occurred 1 week ago and he kept putting off obtaining treatment. Patient came into [facility] emergency center for evaluation and found to be afebrile, blood pressure 149/88, pulse ox 98% on 3 L nasal cannula, heart rate 71. Hemoglobin 9.8, WBC 7.7. Sodium 136, potassium 3.7, chloride 88, CO2 41, BUN 37, creatinine 1.11, blood sugar 116. EKG was a paced rhythm with no acute ST changes. Chest x-ray showed no acute abnormality. Patient was admitted to the cardiac stepdown unit and consult in place with orthopedics for Achilles tendon tear. We have added in a consult with Dr. Gong for exacerbation of COPD. 11/14 patient examined bedside. Continues to have cough and shortness of breath requiring 5 L of oxygen with BiPAP use overnight. no repeat labs since 11/12. CBC, CMP ordered. Boogie virus has been negative. PT/OT consult placed for p ossible rehab placement for the patient. Continue Solu-Medrol 40 every 8 hours. Lantus was initiated at 10 mg twice a day to help with hyperglycemia. Review of system Constitutional: Denies chills, Denies fever, Denies lethargy, Denies malaise, Denies poor appetite, Denies weakness, Denies weight loss Eyes: denies decreased vision, denies diplopia, denies discharge, denies pain Ears: deny: decreased hearing Ears, nose, mouth and throat: Denies dental pain, Denies headache, Denies nasal discharge, Denies nose pain Cardiovascular: Denies chest pain, Denies decreased exercise tolerance, Denies edema, Denies high blood pressure, Denies irregular heart beat, Denies palpitations, Denies paroxysmal nocturnal dyspnea, Denies rapid heart beat, Denies shortness of breath Respiratory: Positive for cough and congestion positive for dyspnea positive for use of home oxygen Gastrointestinal: Denies abdominal pain, Denies change in bowel habits, Denies coffee ground emesis, Denies early satiety, Denies excessive gas, Denies heartburn, Denies hematemesis, Denies hematochezia, Denies loss of appetite, Denies nausea, Denies vomiting Musculoskeletal: Positive for arm pain in the leg and muscle cramps Integumentary: Denies rash, Denies wounds, Denies brittle nails, Denies change in hair/nails, Denies darkening of skin Neurological: Denies balance difficulties, Denies change in speech, Denies double vision, Denies gait dysfunction, Denies loss of vision, Denies motor disturbance, Denies numbness, Denies paralysis, Denies paresthesias, Denies seizures Psychiatric: Denies anxiety, Denies depression Endocrine: Denies excessive sweating, Denies excessive thirst, Denies high blood sugars, Denies palpitations Hematologic/Lymphatic: Denies easy bruising, Denies lymphadenopathy Objective - Vital Signs Vital signs: Vital Signs Temp 97.6 F 11/15/19 00:00 Pulse 67 11/15/19 00:00 Resp 20 11/15/19 00:00 BP 117/67 11/15/19 00:00 Pulse Ox 94 L 11/15/19 00:00 Intake & Output 11/14/19 11/15/19 11/15/19 18:59 06:59 18:59 Intake Total 360 760 Output Total 350 1350 Balance 10 -590 Weight 93 kg Intake: Oral 360 760 Output: Urine 350 1350 Other: # Voids 1 1 # Bowel Movements 1 - Exam Physical examination EENT: Head is atraumatic, normal cephalic, pupils were equal round reactive to light and accommodation, extraocular muscle movement were intact, mucous membranes of mouth slightly dry. Neck: Supple, no JVP. Chest: Decreased breath sound at bases, few rhonchi, minimal expiratory wheezes, no intercostal retraction, there is an AICD located in the left upper precordium. Heart: First heart sound is depressed, second heart sounds normal, there is systolic ejection murmur 2/6 located in the left sternal border, there is AICD in the left upper precordium Abdomen: Soft, nontender, nondistended, positive bowel sounds. Extremities: No edema, no calf tenderness, dorsalis pedis +1 bilaterally. Ecchymosis to the left foot, León wrap in place to the left foot and lower leg. Neurologic examination: Patient is awake alert and oriented 3, cranial nerves II-12 appear grossly intact, muscle power 5 out of 5 in upper and lower extremity disease bilaterally. - Labs CBC & Chem 7: 11/13/19 16:07 11/13/19 16:07 Labs: Abnormal Lab Results - Last 24 Hours (Table) 11/14/19 11/14/19 11/14/19 Range/Units 11:24 17:19 20:13 POC Glucose (mg/dL) 107 H 180 H 228 H (75-99) mg/dL 11/15/19 Range/Units 06:05 POC Glucose (mg/dL) 269 H (75-99) mg/dL Assessment and Plan Plan: 1. Chronic hypoxemic respiratory failure with acute mild COPD exacerbation. Consult with Dr. Gong. Continue DuoNeb treatments 4 times daily and as needed, Perforomist twice daily, Pulmicort 1 mg twice daily, Mucinex twice daily. Patient will be transferred to [facility] floor without telemetry. 2. Acute left Achilles tendon tear. Consult with orthopedics. León wrap in fracisco ce. 3. Chronic systolic heart failure. Continue Lasix 40 mg oral 3 times daily, Coreg, lisinopril. 4. Chronic kidney disease stage 3. 5. Obstructive sleep apnea. Patient has done well with BiPAP. 6. Coronary artery disease status post coronary artery bypass graft with PCI and ischemic cardiomyopathy post AICD. Continue Coreg 3.125 mg orally twice every day, aspirin 81 mg daily, Lipitor 40 mg daily. 7. COPD and moderate persistent asthma. Continue DuoNeb 3 mg nebulization, inhaled steroids, Singulair 10 mg at bedtime, Claritin [address] with [address] Gong. 8. Hypertension and hypertensive cardiovascular disease. Continue patient on carvedilol, lisinopril 2.5 mg daily. 9. Hyperlipidemia. Continue Lipitor 40 mg orally once every day and Zetia 10 mg daily. 10. History of tobacco use and dependence. Patient quit 2018. 11. Chronic pain syndrome. Continue patient on methadone. 12. History of MSSA bacteremia. 13. DVT prophylaxis. Heparin subcu. 14. GI prophylaxis. Pepcid 20 mg orally once every day. 15. COVID-19 testing in process. Admitted to inpatient. Estimate length of stay 2 midnights. CODE STATUS: DO NOT RESUSCITATE. Charge plan: Most likely return home.
[2019-11-15] MEDS: METHADONE 10 MG TAB PO SCH (09:49)
[2019-11-15] MEDS: METHADONE 5 MG TAB PO SCH (09:50)
[2019-11-15] MEDS: MULTIVITAMINS, THERA 1 EACH TAB PO SCH (09:51)
[2019-11-15] MEDS: methylPREDNISolone SOD SUCCI 40 MG/ML 1 ML VIAL IV SCH ×3 (09:51→23:28)
[2019-11-15] MEDS: ASPIRIN 81 MG PO SCH (09:51)
[2019-11-15] MEDS: ATORVASTATIN 40 MG TAB PO SCH (09:51)
[2019-11-15] MEDS: NICOTINE 21MG/24HR PATCH TRANSDERM SCH (09:51)
[2019-11-15] MEDS: guaiFENesin 600 MG TABLET.ER PO SCH ×2 (09:52→20:37)
[2019-11-15] MEDS: LORATADINE 10 MG TAB PO SCH (09:52)
[2019-11-15] MEDS: HEPARIN SODIUM,PORCINE 5,000 UNIT/ML 1 ML VIAL SQ SCH ×2 (09:52→20:38)
[2019-11-15] MEDS: FUROSEMIDE 40 MG TAB PO SCH ×3 (09:52→20:37)
[2019-11-15] MEDS: LISINOPRIL 2.5 MG TAB PO SCH (09:52)
[2019-11-15] MEDS: EZETIMIBE 10 MG TAB PO SCH (09:52)
[2019-11-15 12:11] LABS: Glucose,Whole Blood 187 mg/dL (75-99)
[2019-11-15 16:57] LABS: Glucose,Whole Blood 222 mg/dL (75-99)
[2019-11-15] MEDS: MONTELUKAST 10 MG TAB PO SCH (20:37)
[2019-11-15] MEDS: ALPRAZolam 0.25 MG TAB PO PRN (20:38)
[2019-11-15 20:59] LABS: Glucose,Whole Blood 169 mg/dL (75-99)
[2019-11-15] MEDS ORDERED: INSULIN DETEMIR (LEVEMIR) 100 UNIT/ML SYR SQ SCH (21:00)
[2019-11-16 06:53] LABS: Glucose,Whole Blood 171 mg/dL (75-99)
[2019-11-16] MEDS: INSULIN ASPART (NovoLOG) 100 UNIT/ML VIAL SQ SCH ×4 (07:46→21:04)
--- NOTE | 2019-11-16 07:50 | P.PN ---
Subjective Progress Note Date: 11/16/19 This is a 59-year-old male patient of Drs. Bautista, Jing and Farideh with past medical history of coronary artery disease and status post coronary artery bypass grafting and previous angioplasty and stenting so that, heart catheterization in September 2018 revealed severe stenosis of the LAD with occluded first obtuse marginal branch, chronically occluded mid right coronary artery, mild to moderate disease of the proximal left circumflex, patent JACKSON to LAD, patent saphenous vein graft to the diagonal branch and to the right PDA, severely impaired left ventricular systolic function, ischemic cardiomyopathy EF of 20-25% status post AICD, chronic systolic heart failure as well as chronic obstructive pulmonary disease, chronic hypoxic respiratory failure on home O2, hypertension, hyperlipidemia, chronic pain syndrome on methadone, tobacco use and dependencequit September 2018, obstructive sleep apnea unable to tolerate CPAP. Patient was last hospitalized at [facility] of this year which time he was treated for acute on chronic hypoxic respiratory failure secondary to acute on chronic systolic heart failure and COPD and acute kidney injury. During that hospitalization patient was started on BiPAP which seemed to be very helpful improved his difficulty breathing. He did tolerate it in the hospital for 3 nights in a row and at discharge he went to [facility] and was having a hard time tolerating but Xanax did help. He states he spent 2 weeks in [facility] and and then 3 days of physical therapy and then his insurance declined any further rehab. Patient was discharged home and apparently home care was set up but because patient's phone was not working he did not have a visit from home care. He is currently residing with several friends in an apartment. There are dogs that are new to his living situation which are exacerbating his difficulty breathing. He knew that he had ALLERGIES to dogs but did not realize how severe these ALLERGIES were. He has had increasing difficulty breathing for greater than 24 hours. He denies any fever or chills. He is concerned that the Fasenra injection which has been approved by his insurance and he has not received due to [place] [id number] limitations, with significantly improved his respiratory status. He is aware that this is not available in the hospital setting. He also gives history that he was walking outside in the street was uneven and he felt a snap in his left Achilles area. He is finding it very difficult to walk and has bruising to the foot as well. This occurred 1 week ago and he kept putting off obtaining treatment. Patient came into [facility] emergency center for evaluation and found to be afebrile, blood pressure 149/88, pulse ox 98% on 3 L nasal cannula, heart rate 71. Hemoglobin 9.8, WBC 7.7. Sodium 136, potassium 3.7, chloride 88, CO2 41, BUN 37, creatinine 1.11, blood sugar 116. EKG was a paced rhythm with no acute ST changes. Chest x-ray showed no acute abnormality. Patient was admitted to the cardiac stepdown unit and consult in place with orthopedics for Achilles tendon tear. We have added in a consult with Dr. Gong for exacerbation of COPD. 11/14 patient examined bedside. Continues to have cough and shortness of breath requiring 5 L of oxygen with BiPAP use overnight. no repeat labs since 11/12. CBC, CMP ordered. Boogie virus has been negative. PT/OT consult placed for p ossible rehab placement for the patient. Continue Solu-Medrol 40 every 8 hours. Lantus was initiated at 10 mg twice a day to help with hyperglycemia. 11/15 patient examined bedside. Appears comfortable. Continues to have some cough and shortness of breath. Whether this morning suggests a temp of 97.5 bun 61 blood pressure 124/74 oxygen saturation 95% on 5 L. Labs this morning are pending. H Solu-Medrol to prednisone today. The plan to discharge the patient tomorrow to a subacute rehab. Review of system Constitutional: Denies chills, Denies fever, Denies lethargy, Denies malaise, D enies poor appetite, Denies weakness, Denies weight loss Eyes: denies decreased vision, denies diplopia, denies discharge, denies pain Ears: deny: decreased hearing Ears, nose, mouth and throat: Denies dental pain, Denies headache, Denies nasal discharge, Denies nose pain Cardiovascular: Denies chest pain, Denies decreased exercise tolerance, Denies edema, Denies high blood pressure, Denies irregular heart beat, Denies palpitations, Denies paroxysmal nocturnal dyspnea, Denies rapid heart beat, D enies shortness of breath Respiratory: Positive for cough and congestion positive for dyspnea positive for use of home oxygen Gastrointestinal: Denies abdominal pain, Denies change in bowel habits, Denies coffee ground emesis, Denies early satiety, Denies excessive gas, Denies heartburn, Denies hematemesis, Denies hematochezia, Denies loss of appetite, Denies nausea, Denies vomiting Musculoskeletal: Positive for arm pain in the leg and muscle cramps Integumentary: Denies rash, Denies wounds, Denies brittle nails, Denies change in hair/nails, Denies darkening of skin Neurological: Denies balance difficulties, Denies change in speech, Denies double vision, Denies gait dysfunction, Denies loss of vision, Denies motor disturbance, Denies numbness, Denies paralysis, Denies paresthesias, Denies seizures Psychiatric: Denies anxiety, Denies depression Endocrine: Denies excessive sweating, Denies excessive thirst, Denies high blood sugars, Denies palpitations Hematologic/Lymphatic: Denies easy bruising, Denies lymphadenopathy Objective - Vital Signs Vital signs: Vital Signs Temp 97.5 F L 11/16/19 06:54 Pulse 61 11/16/19 06:54 Resp 19 11/16/19 07:21 BP 124/74 11/16/19 06:54 Pulse Ox 95 11/16/19 06:54 Intake & Output 11/15/19 11/16/19 11/16/19 18:59 06:59 18:59 Intake Total 1080 20 Output Total 500 300 Balance 580 -280 Intake: Oral 1080 20 Output: Urine 500 300 Other: Voiding Method Urinal Urinal Urinal # Voids 1 - Exam Physical examination EENT: Head is atraumatic, normal cephalic, pupils were equal round reactive to light and accommodation, extraocular muscle movement were intact, mucous membranes of mouth slightly dry. Neck: Supple, no JVP. Chest: Decreased breath sound at bases, few rhonchi, minimal expiratory wheezes, no intercostal retraction, there is an AICD located in the left upper precordium. Heart: First heart sound is depressed, second heart sounds normal, there is systolic ejection murmur 2/6 located in the left sternal border, there is AICD in the left upper precordium Abdomen: Soft, nontender, nondistended, positive bowel sounds. Extremities: No edema, no calf tenderness, dorsalis pedis +1 bilaterally. Ecchymosis to the left foot, León wrap in place to the left foot and lower leg. Neurologic examination: Patient is awake alert and oriented 3, cranial nerves II-12 appear grossly intact, muscle power 5 out of 5 in upper and lower extremity disease bilaterally. - Labs CBC & Chem 7: 11/13/19 16:07 11/13/19 16:07 Labs: Abnormal Lab Results - Last 24 Hours (Table) 11/15/19 11/15/19 11/15/19 Range/Units 12:09 16:55 20:30 POC Glucose (mg/dL) 187 H 222 H 169 H (75-99) mg/dL 11/16/19 Range/Units 06:52 POC Glucose (mg/dL) 171 H (75-99) mg/dL Assessment and Plan Plan: 1. Chronic hypoxemic respiratory failure with acute mild COPD exacerbation. Consult with Dr. Gong. Continue DuoNeb treatments 4 times daily and as needed, Perforomist twice daily, Pulmicort 1 mg twice daily, Mucinex twice daily. Jhon groves will be transferred to [facility] floor without telemetry. 2. Acute left Achilles tendon tear. Consult with orthopedics. León wrap in place. 3. Chronic systolic heart failure. Continue Lasix 40 mg oral 3 times daily, Coreg, lisinopril. 4. Chronic kidney disease stage 3. 5. Obstructive sleep apnea. Patient has done well with BiPAP. 6. Coronary artery disease status post coronary artery bypass graft with PCI and ischemic cardiomyopathy post AICD. Continue Coreg 3.125 mg orally twice every day, aspirin 81 mg daily, Lipitor 40 mg daily. 7. COPD and moderate persistent asthma. Continue DuoNeb 3 mg nebulization, inhaled steroids, Singulair 10 mg at bedtime, Claritin [address] with Dr. Gong. 8. Hypertension and hypertensive cardiovascular disease. Continue patient on carvedilol, lisinopril 2.5 mg daily. 9. Hyperlipidemia. Continue Lipitor 40 mg orally once every day and Zetia 10 mg daily. 10. History of tobacco use and dependence. Patient quit 2018. 11. Chronic pain syndrome. Continue patient on methadone. 12. History of MSSA bacteremia. 13. DVT prophylaxis. Heparin subcu. 14. GI prophylaxis. Pepcid 20 mg orally once every day. 15. COVID-19 negative Admitted to inpatient. Estimate length of stay 2 midnights. CODE STATUS: DO NOT RESUSCITATE. Charge plan: Most likely return home patient may benefit from intermediate placement for a few weeks for functional mobility
[2019-11-16 08:25] LABS: Basophils % (A) 0 %; Eosinophils % (A) 0 %; HCT 31.7 % (39.0-53.0); HGB 10.3 gm/dL (13.0-17.5); Hypochromasia Slight; Lymphocytes # (A) 0.5 k/uL (1.0-4.8); Lymphocytes % (A) 5 %; MCH 33.8 pg (25.0-35.0); MCHC 32.3 g/dL (31.0-37.0); MCV 104.5 fL (80.0-100.0); Macrocytosis Moderate; Mean Platelet Volume 7.2; Monocytes # (A) 0.6 k/uL (0-1.0); Monocytes % (A) 5 %; Neutrophils # (A) 10.3 k/uL (1.3-7.7); Neutrophils % (A) 89 %; Platelet Count 243 k/uL (150-450); RBC 3.04 m/uL (4.30-5.90); WBC 11.6 k/uL (3.8-10.6)
[2019-11-16 08:31] LABS: Albumin 3.7 g/dL (3.5-5.0); Calcium 9.1 mg/dL (8.4-10.2); Potassium 3.8 mmol/L (3.5-5.1); Total Bilirubin 0.3 mg/dL (0.2-1.3)
[2019-11-16] MEDS: BUDESONIDE 1 MG/2 ML NEBU INHALATION SCH ×2 (08:46→19:02)
[2019-11-16] MEDS: FORMOTEROL FUMARATE 20 MCG/2 ML NEBU INHALATION SCH ×2 (08:46→19:02)
[2019-11-16] MEDS: IPRATROPIUM-ALBUTEROL 3 ML NEB INHALATION SCH ×3 (08:47→19:03)
[2019-11-16] MEDS: METHADONE 5 MG TAB PO SCH (09:02)
[2019-11-16] MEDS: METHADONE 10 MG TAB PO SCH (09:02)
[2019-11-16] MEDS: guaiFENesin 600 MG TABLET.ER PO SCH ×2 (09:03→20:20)
[2019-11-16] MEDS: MULTIVITAMINS, THERA 1 EACH TAB PO SCH (09:03)
[2019-11-16] MEDS: ATORVASTATIN 40 MG TAB PO SCH (09:03)
[2019-11-16] MEDS: FUROSEMIDE 40 MG TAB PO SCH ×3 (09:03→20:20)
[2019-11-16] MEDS: HEPARIN SODIUM,PORCINE 5,000 UNIT/ML 1 ML VIAL SQ SCH ×2 (09:03→20:20)
[2019-11-16] MEDS: predniSONE 20 MG TAB PO SCH (09:03)
[2019-11-16] MEDS: LISINOPRIL 2.5 MG TAB PO SCH (09:03)
[2019-11-16] MEDS: LORATADINE 10 MG TAB PO SCH (09:03)
[2019-11-16] MEDS: NICOTINE 21MG/24HR PATCH TRANSDERM SCH (09:03)
[2019-11-16] MEDS: CARVEDILOL 3.125 MG TAB PO SCH ×2 (09:03→16:50)
[2019-11-16] MEDS: PANTOPRAZOLE 40 MG TABLET PO SCH (09:04)
[2019-11-16] MEDS: EZETIMIBE 10 MG TAB PO SCH (09:04)
[2019-11-16] MEDS: INSULIN DETEMIR (LEVEMIR) 100 UNIT/ML SYR SQ SCH ×2 (09:04→20:21)
[2019-11-16] MEDS: ASPIRIN 81 MG PO SCH (09:04)
[2019-11-16 11:29] LABS: Glucose,Whole Blood 247 mg/dL (75-99)
[2019-11-16 16:54] LABS: Glucose,Whole Blood 294 mg/dL (75-99)
[2019-11-16 20:12] LABS: Glucose,Whole Blood 123 mg/dL (75-99)
[2019-11-16] MEDS: MONTELUKAST 10 MG TAB PO SCH (20:20)
[2019-11-16] MEDS: ALPRAZolam 0.25 MG TAB PO PRN (22:55)
[2019-11-17 07:25] LABS: Glucose,Whole Blood 128 mg/dL (75-99)
[2019-11-17] MEDS: IPRATROPIUM-ALBUTEROL 3 ML NEB INHALATION SCH ×3 (08:28→21:13)
[2019-11-17] MEDS: BUDESONIDE 1 MG/2 ML NEBU INHALATION SCH ×2 (08:29→21:12)
[2019-11-17] MEDS: FORMOTEROL FUMARATE 20 MCG/2 ML NEBU INHALATION SCH ×2 (08:29→21:13)
[2019-11-17] MEDS: INSULIN ASPART (NovoLOG) 100 UNIT/ML VIAL SQ SCH ×4 (08:37→20:47)
[2019-11-17] MEDS: predniSONE 20 MG TAB PO SCH (08:54)
[2019-11-17] MEDS: guaiFENesin 600 MG TABLET.ER PO SCH ×2 (08:54→20:47)
[2019-11-17] MEDS: LISINOPRIL 2.5 MG TAB PO SCH (08:54)
[2019-11-17] MEDS: FUROSEMIDE 40 MG TAB PO SCH ×3 (08:54→20:47)
[2019-11-17] MEDS: ATORVASTATIN 40 MG TAB PO SCH (08:54)
[2019-11-17] MEDS: MULTIVITAMINS, THERA 1 EACH TAB PO SCH (08:54)
[2019-11-17] MEDS: ASPIRIN 81 MG PO SCH (08:54)
[2019-11-17] MEDS: PANTOPRAZOLE 40 MG TABLET PO SCH (08:55)
[2019-11-17] MEDS: METHADONE 10 MG TAB PO SCH (08:55)
[2019-11-17] MEDS: INSULIN DETEMIR (LEVEMIR) 100 UNIT/ML SYR SQ SCH ×2 (08:55→20:47)
[2019-11-17] MEDS: LORATADINE 10 MG TAB PO SCH (08:56)
[2019-11-17] MEDS: CARVEDILOL 3.125 MG TAB PO SCH ×2 (08:56→16:12)
[2019-11-17] MEDS: NICOTINE 21MG/24HR PATCH TRANSDERM SCH (08:56)
[2019-11-17] MEDS: METHADONE 5 MG TAB PO SCH (09:01)
[2019-11-17] MEDS: HEPARIN SODIUM,PORCINE 5,000 UNIT/ML 1 ML VIAL SQ SCH ×2 (09:01→20:47)
[2019-11-17] MEDS: EZETIMIBE 10 MG TAB PO SCH (09:02)
[2019-11-17 11:37] LABS: Glucose,Whole Blood 141 mg/dL (75-99)
--- NOTE | 2019-11-17 12:30 | P.PN ---
Subjective Progress Note Date: 11/17/19 This is a 59-year-old male patient of Drs. Bautista, Jing and Farideh with past medical history of coronary artery disease and status post coronary artery bypass grafting and previous angioplasty and stenting so that, heart catheterization in September 2018 revealed severe stenosis of the LAD with occluded first obtuse marginal branch, chronically occluded mid right coronary artery, mild to moderate disease of the proximal left circumflex, patent JACKSON to LAD, patent saphenous vein graft to the diagonal branch and to the right PDA, severely impaired left ventricular systolic function, ischemic cardiomyopathy EF of 20-25% status post AICD, chronic systolic heart failure as well as chronic obstructive pulmonary disease, chronic hypoxic respiratory failure on home O2, hypertension, hyperlipidemia, chronic pain syndrome on methadone, tobacco use and dependencequit September 2018, obstructive sleep apnea unable to tolerate CPAP. Patient was last hospitalized at [facility] of this year which time he was treated for acute on chronic hypoxic respiratory failure secondary to acute on chronic systolic heart failure and COPD and acute kidney injury. During that hospitalization patient was started on BiPAP which seemed to be very helpful improved his difficulty breathing. He did tolerate it in the hospital for 3 nights in a row and at discharge he went to [facility] and was having a hard time tolerating but Xanax did help. He states he spent 2 weeks in [facility] and and then 3 days of physical therapy and then his insurance declined any further rehab. Patient was discharged home and apparently home care was set up but because patient's phone was not working he did not have a visit from home care. He is currently residing with several friends in an apartment. There are dogs that are new to his living situation which are exacerbating his difficulty breathing. He knew that he had ALLERGIES to dogs but did not realize how severe these ALLERGIES were. He has had increasing difficulty breathing for greater than 24 hours. He denies any fever or chills. He is concerned that the Fasenra injection which has been approved by his insurance and he has not received due to [place] [id number] limitations, with significantly improved his respiratory status. He is aware that this is not available in the hospital setting. He also gives history that he was walking outside in the street was uneven and he felt a snap in his left Achilles area. He is finding it very difficult to walk and has bruising to the foot as well. This occurred 1 week ago and he kept putting off obtaining treatment. Patient came into [facility] emergency center for evaluation and found to be afebrile, blood pressure 149/88, pulse ox 98% on 3 L nasal cannula, heart rate 71. Hemoglobin 9.8, WBC 7.7. Sodium 136, potassium 3.7, chloride 88, CO2 41, BUN 37, creatinine 1.11, blood sugar 116. EKG was a paced rhythm with no acute ST changes. Chest x-ray showed no acute abnormality. Patient was admitted to the cardiac stepdown unit and consult in place with orthopedics for Achilles tendon tear. We have added in a consult with Dr. Gong for exacerbation of COPD. 11/14 patient examined bedside. Continues to have cough and shortness of breath requiring 5 L of oxygen with BiPAP use overnight. no repeat labs since 11/12. CBC, CMP ordered. Boogie virus has been negative. PT/OT consult placed for p ossible rehab placement for the patient. Continue Solu-Medrol 40 every 8 hours. Lantus was initiated at 10 mg twice a day to help with hyperglycemia. 11/15 patient examined bedside. Appears comfortable. Continues to have some cough and shortness of breath. Whether this morning suggests a temp of 97.5 bun 61 blood pressure 124/74 oxygen saturation 95% on 5 L. Labs this morning are pending. H Solu-Medrol to prednisone today. The plan to discharge the patient tomorrow to a subacute rehab. 11/16: Patient is very sleepy this morning. He states his breathing has improved. No fever or chills. He is planning to go to subacute rehab at the time of discharge. Patient is afebrile, heart rate 58, blood pressure 129/76, pulse ox 98% on 4 L nasal cannula. Capillary blood glucose running between 123 and 141. Patient is currently on oral prednisone since yesterday. Patient was evaluated by Dr. Burton, orthopedics, for left Achilles tendon tear. He recommends no surgical intervention at this time and patient to be placed in a posterior splint with plan for fiberglass cast in the coming weeks which will be done as an outpatient. Patient is to be nonweightbearing on the left lower e xtremity, utilize crutches or wheelchair. Anticipate discharge to [facility] tomorrow. Review of Systems Constitutional: Denies chills, Denies lethargy, Denies weakness, denies fever, reports daytime sleepiness Eyes: denies blurred vision, denies bulging eye, denies decreased vision Ears, nose, mouth and throat: Denies dental pain, Denies dysphagia, Denies neck lump, Denies sore throat Cardiovascular: Reports decreased exercise tolerance, Reports dyspnea on exertion, Reports shortness of breath-improved, denies edema, denies lower extremity edema, Denies chest pain, Denies lightheadedness, Denies rapid heart beat, Denies syncope Respiratory: Denies cough, Reports home oxygen, Denies congestion, Denies cough with sputum, reports sleep apnea, Denies snoring, reports wheezing Gastrointestinal: Denies abdominal pain, Denies bloating, Denies BRBPR, Denies excessive gas, Denies heartburn, Denies melena, Denies nausea, Denies vomiting Genitourinary: Reports nocturia, Denies dysuria Musculoskeletal: Denies myalgias Musculoskeletal: Reports left ankle pain/Achilles tendon, denies elbow pain, elbow stiffness, elbow swelling, foot pain, foot stiffness, foot swelling, hand pain, hand stiffness, hand swelling, hip pain, hip stiffness, hip swelling, knee pain, knee stiffness, knee swelling, shoulder pain, shoulder stiffness, shoulder swelling, wrist pain, wrist stiffness, wrist swelling Integumentary: Denies pruritus, Denies rash, reports wound left ankle Neurological: Denies numbness, Denies weakness Psychiatric: Denies anxiety, Denies depression Endocrine: Denies fatigue, Denies weight change Physical examination GEN: This is a 59-year-old obese male. He is resting in bed and appears to be comfortable. No respiratory distress is noted. Patient is sleepy this morning. EENT: Head is atraumatic, normal cephalic, pupils were equal round reactive to light and accommodation, extraocular muscle movement were intact, mucous membranes of mouth slightly dry. Neck: Supple, no JVP. Chest: Decreased breath sound at bases, few rhonchi, minimal expiratory wheezes, no intercostal retraction, there is an AICD located in the left upper precordium. Heart: First heart sound is depressed, second heart sounds normal, there is systolic ejection murmur 2/6 located in the left sternal border, there is AICD in the left upper precordium Abdomen: Soft, nontender, nondistended, positive bowel sounds. Extremities: No edema, no calf tenderness, dorsalis pedis +1 bilaterally. Ecchymosis to the left foot, León wrap in place to the left foot and lower leg. Neurologic examination: Patient is awake alert and oriented 3, cranial nerves II-12 appear grossly intact, muscle power 5 out of 5 in upper and lower ext remity disease bilaterally. Assessment and plan 1. Chronic hypoxemic respiratory failure with acute COPD exacerbation. Consult with Dr. Gong. Continue DuoNeb treatments 4 times daily and as needed, Perforomist twice daily, Pulmicort 1 mg twice daily, Mucinex twice daily, prednisone 60 mg daily. 2. Acute left Achilles tendon tear. Consult with orthopedics. León wrap in place. 3. Chronic systolic heart failure. Continue Lasix 40 mg oral 3 times daily, Coreg, lisinopril. 4. Chronic kidney disease stage 3. 5. Obstructive sleep apnea. Patient has done well with BiPAP. 6. Coronary artery disease status post coronary artery bypass graft with PCI and ischemic cardiomyopathy post AICD. Continue Coreg 3.125 mg orally twice every day, aspirin 81 mg daily, Lipitor 40 mg daily. 7. COPD and moderate persistent asthma. Continue DuoNeb 3 mg nebulization, inhaled steroids, Singulair 10 mg at bedtime, Claritin [address] with [address] Gong. 8. Hypertension and hypertensive cardiovascular disease. Continue patient on carvedilol, lisinopril 2.5 mg daily. 9. Hyperlipidemia. Continue Lipitor 40 mg orally once every day and Zetia 10 mg daily. 10. History of tobacco use and dependence. Patient quit 2018. 11. Chronic pain syndrome. Continue patient on methadone. 12. History of MSSA bacteremia. 13. DVT prophylaxis. Heparin subcu. 14. GI prophylaxis. Pepcid 20 mg orally once every day. 15. COVID-19 infection not present. CODE STATUS: DO NOT RESUSCITATE. Discharge plan: [facility] on Sunday. Impression and plan of care have been directed as dictated by the signing physician. Isabelle Andersen nurse practitioner acting as scribe for signing physician. Objective - Vital Signs Vital signs: Vital Signs Temp 97.8 F 11/17/19 01:00 Pulse 71 11/17/19 01:00 Resp 16 11/16/19 19:25 BP 126/80 11/17/19 01:00 Pulse Ox 95 11/17/19 01:00 Intake & Output 11/16/19 11/17/19 11/17/19 18:59 06:59 18:59 Intake Total 100 Output Total 1420 750 Balance -1420 -650 Intake: Oral 100 Output: Urine 1420 750 Other: Voiding Method Urinal Toilet Urinal # Voids 1 - Labs CBC & Chem 7: 11/16/19 07:00 11/16/19 07:00 Labs: Abnormal Lab Results - Last 24 Hours (Table) 11/16/19 11/16/19 11/16/19 Range/Units 07:00 07:00 11:28 WBC 11.6 H (3.8-10.6) k/uL RBC 3.04 L (4.30-5.90) m/uL Hgb 10.3 L (13.0-17.5) gm/dL Hct 31.7 L (39.0-53.0) % MCV 104.5 H (80.0-100.0) fL Neutrophils # 10.3 H (1.3-7.7) k/uL Lymphocytes # 0.5 L (1.0-4.8) k/uL Sodium 136 L (137-145) mmol/L Chloride 89 L (98-107) mmol/L Carbon Dioxide 44 H* (22-30) mmol/L BUN 44 H (9-20) mg/dL Glucose 144 H (74-99) mg/dL POC Glucose (mg/dL) 247 H (75-99) mg/dL Total Protein 6.0 L (6.3-8.2) g/dL 11/16/19 11/16/19 11/17/19 Range/Units 16:53 20:09 07:24 WBC (3.8-10.6) k/uL RBC (4.30-5.90) m/uL Hgb (13.0-17.5) gm/dL Hct (39.0-53.0) % MCV (80.0-100.0) fL Neutrophils # (1.3-7.7) k/uL Lymphocytes # (1.0-4.8) k/uL Sodium (137-145) mmol/L Chloride (98-107) mmol/L Carbon Dioxide (22-30) mmol/L BUN (9-20) mg/dL Glucose (74-99) mg/dL POC Glucose (mg/dL) 294 H 123 H 128 H (75-99) mg/dL Total Protein (6.3-8.2) g/dL
[2019-11-17] MEDS ORDERED: ALPRAZolam 0.5 MG TAB PO PRN (15:20)
--- NOTE | 2019-11-17 15:52 | P.PN ---
Subjective Progress Note Date: 11/17/19 Principal diagnosis: Chronic hypoxic and hypercapnic respiratory failure oxygen dependent and prednisone dependent End-stage COPD Severe degree of structures sleep apnea Obesity hypoventilation syndrome Chronic persistent severe asthma Rupture of left Achilles tendon Ischemic cardiomyopathy with baseline ejection fraction 20% 11/17/2019, patient seen and evaluated examined during the rounds labs reviewed medications reviewed care plan discussed with the patient at length, patient has been using BiPAP machine but however yesterday was not able to use it, there is element of anxiety and apprehension, patient did well with higher doses of Xanax 0.5 mg at bedtime and increase it, continue breathing treatments, continue to monitor patient closely currently he is on 4 L oxygen respiratory status appears stable, would recommend to start tapering his steroids back to baseline of 20 mg daily This is a 59-year-old male with the past medical history of end-stage oxygen- dependent prednisone-dependent severe COPD has been on 6 L oxygen at home patient has also severe degree of the ischemic cardiomyopathy with ejection fraction of the 20% status post AICD with frequent exacerbation of acute on chronic systolic heart failure, patient was at the [facility] where he stayed for 2-3 weeks subsequently was discharged he has been using his BiPAP until about a week ago stopped using the BiPAP machine, patient came into the hospital with left heel pain noted to have at least tendon rupture orthopedics and service has evaluated the patient patient is considered not a surgical candidate due to his extensive and severe cardiopulmonary history patient is currently non-weight bearing sling and will be treated conservatively likely will be placed in rehabilitation again, as far as pulmonary standpoint he denies any cough but has chronic shortness of breath, I have discussed with him at length about BiPAP machine that needs to be resumed also discussed with RN will initiate BiPAP each night and when necessary during the day will use a BiPAP pressure of 10/5 along with oxygen, patient has been approved for physical [facility] supposed to get infusion at infusion center for unclear reason has not been initiated, chest x-ray at the time of admission consistent with COPD no acute changes identified Objective - Vital Signs Vital signs: Vital Signs Temp 98.1 F 11/17/19 15:00 Pulse 77 11/17/19 15:00 Resp 19 11/17/19 15:00 BP 126/81 11/17/19 15:00 Pulse Ox 92 L 11/17/19 15:00 Intake & Output 11/16/19 11/17/19 11/17/19 18:59 06:59 18:59 Intake Total 100 Output Total 1420 750 550 Balance -1420 -650 -550 Intake: Oral 100 Output: Urine 1420 750 550 Other: Voiding Method Urinal Toilet Urinal # Voids 1 1 - Exam - Constitutional General appearance: disheveled, mild distress, morbidly obese - EENT Eyes: EOMI, PERRLA ENT: normal oropharynx Ears: bilateral: normal - Neck Neck: normal ROM Carotids: bilateral: upstroke normal Thyroid: bilateral: normal size - Respiratory Respiratory: bilateral: diminished, negative: dullness, rales, rhonchi, wheezing - Cardiovascular Rhythm: regular Heart sounds: normal: S1, S2 - Gastrointestinal General gastrointestinal: distended, normal bowel sounds, soft - Integumentary Integumentary: normal turgor - Neurologic Neurologic: CNII-XII intact - Musculoskeletal Musculoskeletal: gait normal, generalized weakness, strength equal bilaterally - Psychiatric Psychiatric: A&O x's 3, appropriate affect, intact judgment & insight - Labs CBC & Chem 7: 11/16/19 07:00 11/16/19 07:00 Labs: Abnormal Lab Results - Last 24 Hours (Table) 11/16/19 11/16/19 11/17/19 Range/Units 16:53 20:09 07:24 POC Glucose (mg/dL) 294 H 123 H 128 H (75-99) mg/dL 11/17/19 Range/Units 11:35 POC Glucose (mg/dL) 141 H (75-99) mg/dL Assessment and Plan Assessment: Chronic hypoxic and hypercapnic respiratory failure oxygen dependent and p rednisone dependent End-stage COPD Severe degree of structures sleep apnea Obesity hypoventilation syndrome Chronic persistent severe asthma Rupture of left Achilles tendon Ischemic cardiomyopathy with baseline ejection fraction 20% Plan: Continue supportive care Continue bronchodilator along with oxygen Continue management maximum medical therapy for heart failure Patient needs to be initiated and maintain on BiPAP each night and when necessary during the day discussed with RN Continue Xanax before initiation of BiPAP each night Patient overall is stable from pulmonary standpoint for discharge to rehab, patient has been approved as far as I know for [facility] and has been referred to the infusion center as per his insurance direction and requirements Time with Patient: Greater than 30
[2019-11-17 16:29] LABS: Glucose,Whole Blood 225 mg/dL (75-99)
[2019-11-17 20:43] LABS: Glucose,Whole Blood 234 mg/dL (75-99)
[2019-11-17] MEDS: MONTELUKAST 10 MG TAB PO SCH (20:47)
[2019-11-18 06:57] LABS: Glucose,Whole Blood 142 mg/dL (75-99)
[2019-11-18 07:45] VITALS: TEMP 97.4
[2019-11-18] MEDS: INSULIN DETEMIR (LEVEMIR) 100 UNIT/ML SYR SQ SCH (07:47)
[2019-11-18] MEDS: INSULIN ASPART (NovoLOG) 100 UNIT/ML VIAL SQ SCH ×2 (07:48→11:28)
[2019-11-18 07:49] LABS: HCT 33.4 % (39.0-53.0); HGB 10.5 gm/dL (13.0-17.5); Hypochromasia Moderate; MCH 33.2 pg (25.0-35.0); MCHC 31.3 g/dL (31.0-37.0); Macrocytosis Moderate; Mean Platelet Volume 7.3; Platelet Count 232 k/uL (150-450); RBC 3.15 m/uL (4.30-5.90); WBC 7.8 k/uL (3.8-10.6)
[2019-11-18] MEDS: HEPARIN SODIUM,PORCINE 5,000 UNIT/ML 1 ML VIAL SQ SCH (07:55)
[2019-11-18] MEDS: METHADONE 10 MG TAB PO SCH (07:56)
[2019-11-18] MEDS: LISINOPRIL 2.5 MG TAB PO SCH (07:57)
[2019-11-18] MEDS: MULTIVITAMINS, THERA 1 EACH TAB PO SCH (07:57)
[2019-11-18] MEDS: predniSONE 20 MG TAB PO SCH (07:57)
[2019-11-18] MEDS: PANTOPRAZOLE 40 MG TABLET PO SCH (07:57)
[2019-11-18] MEDS: ASPIRIN 81 MG PO SCH (07:57)
[2019-11-18] MEDS: METHADONE 5 MG TAB PO SCH (07:57)
[2019-11-18] MEDS: FUROSEMIDE 40 MG TAB PO SCH ×2 (07:57→15:19)
[2019-11-18] MEDS: guaiFENesin 600 MG TABLET.ER PO SCH (07:57)
[2019-11-18] MEDS: LORATADINE 10 MG TAB PO SCH (07:58)
[2019-11-18] MEDS: NICOTINE 21MG/24HR PATCH TRANSDERM SCH (07:58)
[2019-11-18] MEDS: CARVEDILOL 3.125 MG TAB PO SCH (07:58)
[2019-11-18] MEDS: ATORVASTATIN 40 MG TAB PO SCH (07:58)
[2019-11-18] MEDS: EZETIMIBE 10 MG TAB PO SCH (07:59)
[2019-11-18] MEDS: IPRATROPIUM-ALBUTEROL 3 ML NEB INHALATION SCH ×2 (08:12→15:55)
[2019-11-18] MEDS: BUDESONIDE 1 MG/2 ML NEBU INHALATION SCH (08:12)
[2019-11-18] MEDS: FORMOTEROL FUMARATE 20 MCG/2 ML NEBU INHALATION SCH (08:12)
[2019-11-18 08:22] LABS: African American GFR (CKD) >90 (>60 ml/min/1.73 sqM); Glucose 117 mg/dL (74-99); Non-African American GFR(CKD) 88 (>60 ml/min/1.73 sqM)
--- NOTE | 2019-11-18 08:42 | P.DS ---
Providers Date of admission: 11/13/19 18:37 Expected date of discharge: 11/18/19 Attending physician: Andres Mcdowell Consults: 11/13/19 18:37 Consult Physician Routine Consulting Provider: Shemar Burton Consult Reason/Comments: Achilles tendon rupture Do you want consulting provider notified?: Yes 11/14/19 08:33 Consult Physician Routine Consulting Provider: Jose L Gong Consult Reason/Comments: COPD Do you want consulting provider notified?: Yes Primary care physician: Jame Bautista [facility] Course: This is a 59-year-old male patient of Jing Enciso and Farideh with past medical history of coronary artery disease and status post coronary artery bypass grafting and previous angioplasty and stenting so that, heart catheterization in September 2018 revealed severe stenosis of the LAD with occluded first obtuse marginal branch, chronically occluded mid right coronary artery, mild to moderate disease of the proximal left circumflex, patent JACKSON to LAD, patent saphenous vein graft to the diagonal branch and to the right PDA, severely impaired left ventricular systolic function, ischemic cardiomyopathy EF of 20-25% status post AICD, chronic systolic heart failure as well as chronic obstructive pulmonary disease, chronic hypoxic respiratory failure on home O2, hypertension, hyperlipidemia, chronic pain syndrome on methadone, tobacco use and dependencequit September 2018, obstructive sleep apnea unable to tolerate CPAP. Patient was last hospitalized at [facility] of this year which time he was treated for acute on chronic hypoxic respiratory failure secondary to acute on chronic systolic heart failure and COPD and acute kidney injury. During that hospitalization patient was started on BiPAP which seemed to be very helpful improved his difficulty breathing. He did tolerate it in the hospital for 3 nights in a row and at discharge he went to [facility] and was having a hard time tolerating but Xanax did help. He states he [place] 2 [place] [facility] [place] and then 3 days of physical therapy and then his insurance declined any further rehab. Patient was discharged home and apparently home care was set up but because patient's phone was not working he did not have a visit from home care. He is currently residing with several friends in an apartment. There are dogs that are new to his living situation which are exacerbating his difficulty breathing. He knew that he had ALLERGIES to dogs but did not realize how severe these ALLERGIES were. He has had increasing difficulty breathing for greater than 24 hours. He denies any fever or chills. He is concerned that the Fasenra injection which has been approved by his insurance and he has not received due to Covid 19 limitations, with significantly improved his respiratory status. He is aware that this is not available in the hospital setting. He also gives history that he was walking outside in the street was uneven and he felt a snap in his left Achilles area. He is finding it very difficult to walk and has bruising to the foot as well. This occurred 1 week ago and he kept putting off obtaining treatment. Patient came into [facility] emergency center for evaluation and found to be afebrile, blood pressure 149/88, pulse ox 98% on 3 L nasal cannula, heart rate 71. Hemoglobin 9.8, WBC 7.7. Sodium 136, potassium 3.7, chloride 88, CO2 41, BUN 37, creatinine 1.11, blood sugar 116. EKG was a paced rhythm with no acute ST changes. Chest x-ray showed no acute abnormality. Patient was admitted to the cardiac stepdown unit and consult in place with orthopedics for Achilles tendon tear. We have added in a consult with Dr. Gong for exacerbation of COPD. 11/14 patient examined bedside. Continues to have cough and shortness of breath requiring 5 L of oxygen with BiPAP use overnight. no repeat labs since 11/12. CBC, CMP ordered. Boogie virus has been negative. PT/OT consult placed for possible rehab placement for the patient. Continue Solu-Medrol 40 every 8 hours. Lantus was initiated at 10 mg twice a day to help with hyperglycemia. 11/15 patient examined bedside. Appears comfortable. Continues to have some cough and shortness of breath. Whether this morning suggests a temp of 97.5 bun 61 blood pressure 124/74 oxygen saturation 95% on 5 L. Labs this morning are pending. H Solu-Medrol to prednisone today. The plan to discharge the patient tomorrow to a subacute rehab. 11/16: Patient is very sleepy this morning. He states his breathing has improved. No fever or chills. He is planning to go to subacute rehab at the time of discharge. Patient is afebrile, heart rate 58, blood pressure 129/76, pulse ox 98% on 4 L nasal cannula. Capillary blood glucose running between 123 and 141. Patient is currently on oral prednisone since yesterday. Patient was evaluated by Dr. Burton, orthopedics, for left Achilles tendon tear. He recommends no surgical intervention at this time and patient to be placed in a posterior splint with plan for fiberglass cast in the coming weeks which will be done as an outpatient. Patient is to be nonweightbearing on the left lower extremity, utilize crutches or wheelchair. Anticipate discharge to [facility] tomorrow. 11/17: Patient's breathing is back to baseline and states. Dr. Gong has recommended a prednisone taper to 20mg daily. Patient has been afebrile, heart rate 72, blood pressure 115/68, pulse ox 96% on 5 L nasal cannula. WBC 7.8, hgb 10.5, plt 232. Na 137, k 4.0, Cl 92, CO2 39, BUN 44, CR 0.94. Patient will be discharged to [facility] today in stable condition. Assessment and plan 1. Chronic hypoxemic respiratory failure with acute COPD exacerbation. 2. Acute left Achilles tendon tear. 3. Chronic systolic heart failure. 4. Chronic kidney disease stage 3. 5. Obstructive sleep apnea. 6. Coronary artery disease status post coronary artery bypass graft with PCI and ischemic cardiomyopathy post AICD. 7. COPD and moderate persistent asthma. 8. Hypertension and hypertensive cardiovascular disease. 9. Hyperlipidemia. 10. History of tobacco use and dependence. 11. Chronic pain syndrome. 12. History of MSSA bacteremia. 13. COVID-19 infection not present. Discharge plan: [facility]. Impression and plan of care have been directed as dictated by the signing physician. Isabelle Andersen nurse practitioner acting as scribe for signing physician. Patient Condition at Discharge: Good Plan - Discharge Summary Discharge Rx Participant: No New Discharge Prescriptions: New Methadone [Dolophine] 110 mg PO DAILY #33 tab Methadone [Dolophine] 5 mg PO DAILY #3 tab guaiFENesin [Mucinex] 600 mg PO Q12HR tablet.er Formoterol Fumarate [Perforomist] 20 mcg INHALATION RT-BID nebu ALPRAZolam [Xanax] 0.25 mg PO HS PRN #3 tab PRN Reason: Anxiety predniSONE 0 mg PO DIRECTED #30 tab Continue Atorvastatin [Lipitor] 40 mg PO DAILY #30 tab Nitroglycerin Sl Tabs [Nitrostat] 0.4 mg SUBLINGUAL Q5M PRN #25 tab PRN Reason: Chest Pain Nicotine 21Mg/24Hr Patch [Habitrol] 1 patch TRANSDERM DAILY #30 patch Montelukast [Singulair] 10 mg PO HS #30 tab Albuterol Inhaler (Mhu) [Ventolin Hfa Inhaler (Mhu)] 2 puff INHALATION RT-QID PRN PRN Reason: Shortness Of Breath Multivitamins, Thera [Multivitamin (formulary)] 1 tab PO DAILY Ezetimibe [Zetia] 10 mg PO DAILY Cetirizine HCl [Zyrtec] 10 mg PO DAILY Fluticasone Propion/Salmeterol [Wixela 250-50 Inhub] 1 puff INHALATION RT-BID Aspirin 81 mg PO DAILY #0 chew Carvedilol [Coreg] 3.125 mg PO AC-BID #60 tab Lisinopril [Zestril] 2.5 mg PO DAILY #30 tab Furosemide [Lasix] 40 mg PO TID Changed Ipratropium/Albuterol Sulfate [Combivent Respimat Inhaler] 2 puff INHALATION RT-BID PRN #0 PRN Reason: Wheezing Ipratropium-Albuterol Nebulize [Duoneb 0.5 mg-3 mg/3 ml Soln] 3 ml INHALATION RT-QID #120 Discontinued Methadone HCl [Methadone Intensol] 110 mg PO DAILY Discharge Medication List Atorvastatin [Lipitor] 40 mg PO DAILY #30 tab 08/31/16 [Rx] Nitroglycerin Sl Tabs [Nitrostat] 0.4 mg SUBLINGUAL Q5M PRN #25 tab 09/24/18 [Rx] Montelukast [Singulair] 10 mg PO HS #30 tab 09/27/18 [Rx] Nicotine 21Mg/24Hr Patch [Habitrol] 1 patch TRANSDERM DAILY #30 patch 09/27/18 [Rx] Albuterol Inhaler (Mhu) [Ventolin Hfa Inhaler (Mhu)] 2 puff INHALATION RT-QID PRN 12/25/18 [History] Multivitamins, Thera [Multivitamin (formulary)] 1 tab PO DAILY 04/22/19 [History] Cetirizine HCl [Zyrtec] 10 mg PO DAILY 08/30/19 [History] Ezetimibe [Zetia] 10 mg PO DAILY 08/30/19 [History] Fluticasone Propion/Salmeterol [Wixela 250-50 Inhub] 1 puff INHALATION RT-BID 08/30/19 [History] Aspirin 81 mg PO DAILY #0 chew 09/30/19 [Rx] Carvedilol [Coreg] 3.125 mg PO AC-BID #60 tab 09/30/19 [Rx] Lisinopril [Zestril] 2.5 mg PO DAILY #30 tab 09/30/19 [Rx] Furosemide [Lasix] 40 mg PO TID 11/13/19 [History] ALPRAZolam [Xanax] 0.25 mg PO HS PRN #3 tab 11/17/19 [Rx] Formoterol Fumarate [Perforomist] 20 mcg INHALATION RT-BID nebu 11/17/19 [Rx] Ipratropium-Albuterol Nebulize [Duoneb 0.5 mg-3 mg/3 ml Soln] 3 ml INHALATION RT-QID #120 11/17/19 [Rx] Ipratropium/Albuterol Sulfate [Combivent Respimat Inhaler] 2 puff INHALATION RT- BID PRN #0 11/17/19 [Rx] Methadone [Dolophine] 5 mg PO DAILY #3 tab 11/17/19 [Rx] Methadone [Dolophine] 110 mg PO DAILY #33 tab 11/17/19 [Rx] guaiFENesin [Mucinex] 600 mg PO Q12HR tablet.er 11/17/19 [Rx] predniSONE 0 mg PO DIRECTED #30 tab 11/18/19 [Rx] Follow up Appointment(s)/Referral(s): Jame Bautista MD [Primary Care Provider] - 1 Week (after discharge from [facility]) Shemar Burton MD [STAFF PHYSICIAN] - 1 Week Activity/Diet/Wound Care/Special Instructions: Orthopedic Discharge Instructions: 1. Non weightbearing on left leg 2. Utilize crutches 3. Elevate often 4. Do not remove splint 5. Keep covered and dry while showering Discharge Disposition: TRANSFER TO SNF/ECF
[2019-11-18 09:04] LABS: Anion Gap 6 mmol/L; Blood Urea Nitrogen 44 mg/dL (9-20); Calcium 9.1 mg/dL (8.4-10.2); Carbon Dioxide 39 mmol/L (22-30); Chloride 92 mmol/L (98-107); Sodium 137 mmol/L (137-145)
[2019-11-18 11:24] LABS: Glucose,Whole Blood 106 mg/dL (75-99)
[2019-11-18 14:48] VITALS: BP 109/72; PULSE 78; RESP 19
== END 2019-11-18 16:47 | DRG 191 ==
LOC: EC 15:47 → 3SCARD 18:37 → 4SSUR 11-15 16:44
PROVIDERS: ADMIT Internal Medicine Geriatric Medicine; ATTEND Internal Medicine Geriatric Medicine
PROC: 5A09357 Assistance with Respiratory Ventilation, Less than 24 Consecutive Hours, Continuous Positive Airway Pressure (ICD-10-PCS; principal; 2019-11-15)
DX: J44.1 Chronic obstructive pulmonary disease with (acute) exacerbation (principal); I50.22 Chronic systolic (congestive) heart failure; I13.0 Hypertensive heart and chronic kidney disease with heart failure and stage 1 through stage 4 chronic kidney disease, or unspecified chronic kidney disease; J96.11 Chronic respiratory failure with hypoxia; E66.2 Morbid (severe) obesity with alveolar hypoventilation; J96.12 Chronic respiratory failure with hypercapnia; I27.20 Pulmonary hypertension, unspecified; S86.012A Strain of left Achilles tendon, initial encounter; I25.10 Atherosclerotic heart disease of native coronary artery without angina pectoris; I25.5 Ischemic cardiomyopathy; N18.3 Chronic kidney disease, stage 3 (moderate); F32.9 Major depressive disorder, single episode, unspecified; J45.50 Severe persistent asthma, uncomplicated; G47.33 Obstructive sleep apnea (adult) (pediatric); Z20.828 Contact with and (suspected) exposure to other viral communicable diseases; E78.5 Hyperlipidemia, unspecified; G89.4 Chronic pain syndrome; Z66 Do not resuscitate; X58.XXXA Exposure to other specified factors, initial encounter; Y93.01 Activity, walking, marching and hiking; Z79.899 Other long term (current) drug therapy; Z79.891 Long term (current) use of opiate analgesic; Z79.82 Long term (current) use of aspirin; Z79.52 Long term (current) use of systemic steroids; Z79.4 Long term (current) use of insulin; I25.2 Old myocardial infarction; Z95.810 Presence of automatic (implantable) cardiac defibrillator; Z86.14 Personal history of Methicillin resistant Staphylococcus aureus infection; Z95.5 Presence of coronary angioplasty implant and graft; Z95.1 Presence of aortocoronary bypass graft; Z98.890 Other specified postprocedural states; Z87.891 Personal history of nicotine dependence; Z80.0 Family history of malignant neoplasm of digestive organs; Z80.6 Family history of leukemia; Z68.31 Body mass index [BMI] 31.0-31.9, adult; Z99.81 Dependence on supplemental oxygen; Z86.19 Personal history of other infectious and parasitic diseases
CPT/HCPCS: 36415; 71046; 80048; 80053; 83605; 83880; 84484; 85025; 85027; 85610; 85730; 93005; 94640; 94660; 94760; 96374; 99285

== ENCOUNTER 2019-12-01 20:37 | Inpatient (IN) | payer OTHER ==
[2019-12-01] MEDS ORDERED: RX INFO: IV CONTRAST WAS GIVEN 1 EACH MISC MISCELLANE PRN (21:31)
[2019-12-01] MEDS ORDERED: SODIUM CHLORIDE 0.9% 500 ML 500 ML IV STA (21:31)
--- NOTE | 2019-12-01 22:02 | CT ---
EXAMINATION TYPE: CT chest w con DATE OF EXAM: 12/01/2019 COMPARISON: 04/22/2019 and 09/07/2019 HISTORY: Hemoptysis. CT DLP: 604.3 mGycm Automated exposure control for dose reduction was used. CONTRAST: Performed with IV Contrast, patient injected with 80ml mL of Isovue 300. Images were obtained from the thoracic inlet to the diaphragm with IV contrast. There is some diffuse pulmonary emphysema. There is mild thickening of the major fissures. There is n o pericardial effusion. There is no pleural effusion. There is subpleural mild interstitial infiltrat e in the posterior lung potter. There is 2.5 cm rounded mass at the right pulmonary hilum that could be enlarged lymph node. There is an irregular somewhat spiculated 3 x 1.5 cm infiltrate in the anteri or right middle lobe. There is elevated right diaphragm. There is some atelectasis at the right lung base. Thoracic aorta shows no aneurysm or dissection. There is no mediastinal adenopathy. There is anterior wedging up to 40% of 2 mid thoracic vertebra. There are sternal wires. The ribs salo ear intact. Upper abdominal soft tissues are intact. IMPRESSION: There is moderate chronic elevation of the right diaphragm. Borderline cardiomegaly. Mild atelectasis right lung base. Mild subpleural interstitial infiltrates in the posterior lung potter. Pulmonary emphysema. Compared to previous exam there is development of a spiculated right middle lobe infiltrate anteriorl y and markedly enlarged right bronchial lymph node. Follow-up recommended. Tumor not excluded even wi th the rapid change compared to exam less than 3 months ago. Consider both inflammatory and neoplasti c disease.
[2019-12-01 22:10] LABS: Albumin 3.8 g/dL (3.5-5.0); Calcium 9.2 mg/dL (8.4-10.2); Magnesium 1.9 mg/dL (1.6-2.3); Potassium 3.9 mmol/L (3.5-5.1); Total Bilirubin 0.4 mg/dL (0.2-1.3); Total Protein 6.4 g/dL (6.3-8.2)
[2019-12-01 22:12] LABS: INR 0.9 (<1.2); Partial Thromboplastin Time 22.5 sec (22.0-30.0); Prothrombin Time 9.7 sec (9.0-12.0)
[2019-12-01 22:22] LABS: Basophils % (A) 0 %; Eosinophils # (A) 0.1 k/uL (0-0.7); Eosinophils % (A) 1 %; HCT 31.6 % (39.0-53.0); HGB 10.5 gm/dL (13.0-17.5); Lymphocytes # (A) 1.2 k/uL (1.0-4.8); Lymphocytes % (A) 12 %; MCH 33.5 pg (25.0-35.0); MCHC 33.2 g/dL (31.0-37.0); Macrocytosis Slight; Mean Platelet Volume 6.9; Monocytes # (A) 0.5 k/uL (0-1.0); Monocytes % (A) 5 %; Neutrophils # (A) 8.3 k/uL (1.3-7.7); Neutrophils % (A) 81 %; Platelet Count 298 k/uL (150-450); RBC 3.13 m/uL (4.30-5.90); RDW 14.5 % (11.5-15.5); WBC 10.2 k/uL (3.8-10.6)
[2019-12-01 22:34] LABS: MCV 100.9 fL (80.0-100.0)
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
[2019-12-02] MEDS ORDERED: NALOXONE 0.4 MG/ML 1 ML VIAL IV PRN (01:00)
[2019-12-02] MEDS ORDERED: NITROGLYCERIN SL TABS 0.4 MG TAB SUBLINGUAL PRN (01:01)
[2019-12-02] MEDS ORDERED: ACETAMINOPHEN TAB 325 MG TAB PO PRN (01:01)
[2019-12-02] MEDS ORDERED: IPRATROPIUM-ALBUTEROL 3 ML NEB INHALATION PRN (01:03)
[2019-12-02] MEDS: IPRATROPIUM 0.5 MG/2.5 ML NEBU INHALATION SCH ×2 (07:58→12:09)
[2019-12-02] MEDS: IPRATROPIUM-ALBUTEROL 3 ML NEB INHALATION SCH ×4 (07:58→19:37)
[2019-12-02] MEDS: predniSONE 10 MG TAB PO SCH (09:36)
[2019-12-02] MEDS: NICOTINE 21MG/24HR PATCH TRANSDERM SCH (09:36)
[2019-12-02] MEDS: MULTIVITAMINS, THERA 1 EACH TAB PO SCH ×2 (09:36→09:37)
[2019-12-02] MEDS: LORATADINE 10 MG TAB PO SCH (09:37)
[2019-12-02] MEDS: guaiFENesin 600 MG TABLET.ER PO SCH (09:37)
[2019-12-02] MEDS: carvediloL 3.125 MG TAB PO SCH ×2 (09:37→17:41)
[2019-12-02] MEDS: FUROSEMIDE 40 MG TAB PO SCH ×3 (09:37→22:15)
[2019-12-02] MEDS: SALMETEROL INHALATION SCH (09:40)
[2019-12-02] MEDS: FLUTICASONE PROPION INHALATION SCH (09:40)
[2019-12-02] MEDS: INSULIN ASPART (NovoLOG) 100 UNIT/ML VIAL SQ SCH ×3 (11:29→22:14)
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
[2019-12-02 11:38] LABS: Glucose,Whole Blood 119 mg/dL (75-99)
[2019-12-02] MEDS: LEVOFLOXACIN 500MG-D5W PMX 500 MG in DEXTROSE/WATER 1 100ML.BAG IVPB SCH (12:34)
[2019-12-02] MEDS: methylPREDNISolone SOD SUCCI 125 MG/2 ML VIAL IV SCH ×2 (12:35→17:41)
[2019-12-02] MEDS: METHADONE 5 MG TAB PO SCH (14:42)
[2019-12-02] MEDS: METHADONE 10 MG TAB PO SCH (14:42)
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
[2019-12-02 17:31] LABS: Glucose,Whole Blood 162 mg/dL (75-99)
[2019-12-02] MEDS: PIPERACILLIN-TAZOBACTAM 3.375 GM in SODIUM CHLORIDE 0.9% 100 ML IVPB SCH (17:42)
[2019-12-02 21:46] LABS: Glucose,Whole Blood 135 mg/dL (75-99)
[2019-12-02] MEDS: HEPARIN SODIUM,PORCINE 5,000 UNIT/ML 1 ML VIAL SQ SCH (22:14)
[2019-12-02] MEDS: MONTELUKAST 10 MG TAB PO SCH (22:15)
[2019-12-02] MEDS: ALPRAZolam 0.25 MG TAB PO SCH (22:15)
[2019-12-02] MEDS: ATORVASTATIN 40 MG TAB PO SCH (22:15)
[2019-12-02] MEDS: EZETIMIBE 10 MG TAB PO SCH (23:24)
[2019-12-03] MEDS: PIPERACILLIN-TAZOBACTAM 3.375 GM in SODIUM CHLORIDE 0.9% 100 ML IVPB SCH ×3 (00:53→16:00)
[2019-12-03] MEDS: methylPREDNISolone SOD SUCCI 125 MG/2 ML VIAL IV SCH ×5 (00:54→23:23)
[2019-12-03 06:12] LABS: Glucose,Whole Blood 198 mg/dL (75-99)
[2019-12-03 06:39] LABS: Basophils % (A) 0 %; Eosinophils % (A) 0 %; HCT 29.3 % (39.0-53.0); HGB 9.6 gm/dL (13.0-17.5); Lymphocytes # (A) 0.6 k/uL (1.0-4.8); Lymphocytes % (A) 6 %; MCH 33.2 pg (25.0-35.0); MCHC 32.6 g/dL (31.0-37.0); MCV 101.7 fL (80.0-100.0); Macrocytosis Slight; Mean Platelet Volume 6.8; Monocytes # (A) 0.3 k/uL (0-1.0); Monocytes % (A) 4 %; Neutrophils # (A) 8.2 k/uL (1.3-7.7); Neutrophils % (A) 89 %; Platelet Count 300 k/uL (150-450); RBC 2.88 m/uL (4.30-5.90); RDW 14.6 % (11.5-15.5); WBC 9.2 k/uL (3.8-10.6)
[2019-12-03 06:49] LABS: Albumin 3.1 g/dL (3.5-5.0); Calcium 8.9 mg/dL (8.4-10.2); Potassium 4.2 mmol/L (3.5-5.1); Total Bilirubin 0.3 mg/dL (0.2-1.3); Total Protein 5.7 g/dL (6.3-8.2)
[2019-12-03] MEDS: INSULIN ASPART (NovoLOG) 100 UNIT/ML VIAL SQ SCH ×4 (07:02→21:56)
[2019-12-03] MEDS: carvediloL 3.125 MG TAB PO SCH ×2 (07:03→16:00)
[2019-12-03] MEDS: IPRATROPIUM-ALBUTEROL 3 ML NEB INHALATION SCH ×4 (07:23→18:39)
[2019-12-03] MEDS: SALMETEROL INHALATION SCH ×2 (07:46→08:43)
[2019-12-03] MEDS: FLUTICASONE PROPION INHALATION SCH ×2 (07:46→08:43)
[2019-12-03] MEDS: METHADONE 10 MG TAB PO SCH (08:41)
[2019-12-03] MEDS: FAMOTIDINE 20 MG TAB PO SCH (08:41)
[2019-12-03] MEDS: predniSONE 10 MG TAB PO SCH (08:42)
[2019-12-03] MEDS: METHADONE 5 MG TAB PO SCH (08:42)
[2019-12-03] MEDS: FUROSEMIDE 40 MG TAB PO SCH ×3 (08:43→21:56)
[2019-12-03] MEDS: NICOTINE 21MG/24HR PATCH TRANSDERM SCH (08:43)
[2019-12-03] MEDS: LORATADINE 10 MG TAB PO SCH (08:43)
[2019-12-03] MEDS: guaiFENesin 600 MG TABLET.ER PO SCH ×2 (08:43→21:56)
[2019-12-03] MEDS: HEPARIN SODIUM,PORCINE 5,000 UNIT/ML 1 ML VIAL SQ SCH ×2 (08:43→21:57)
--- NOTE | 2019-12-03 09:47 | P.PN ---
Subjective This is a 59-year-old male patient of Dr. Knox's, Dr. Vivas and, and Dr. Gong, has a past medical history of coronary artery disease status post coronary artery bypass grafting and previous angioplasty and stenting, ischemic cardiomyopathy ejection fraction of 20-25%, status post AICD, chronic systolic heart failure, chronic COPD, chronic hypoxic respiratory failure on home O2, hypertension, hyperlipidemia, chronic pain syndrome on methadone, tobacco use, obstructive sleep apnea, on BiPAP. Patient has had multiple admissions mostly for acute on chronic hypoxic respiratory failure secondary to acute on chronic systolic heart failure and COPD and acute kidney injury. Patient was recently admitted on 11/14/19 for chronic hypoxic respiratory failure with acute COPD exacerbation along with an acute Achilles tendon tear. Patient was at [facility] for rehab when he developed hemoptysis. Patient reports he was sleeping when he started to cough up blood and noticed it several times throughout the day states he is coughing up bright red clots. Patient presented to the emergency department where a CT of the chest was performed that showed moderate chronic elevation of the right diaphragm, borderline cardiomegaly, mild atelectasis in the right lung base, new spiculated right middle lobe infiltrate anteriorly and marked enlarged right bronchial lymph nodes, tumor is not excluded. Labs hemoglobin 10.5, hematocrit 31.6, sodium 136, carbon dioxide 42, BUN 24, creatinine 1.05. Serial troponins 0.043, 0.054, cardiology on consult. Echocardiogram done in September 2019, showed moderate concentric left ventricular hypertrophy, systolic function severely impaired with ejection fraction between 20-25%, moderate mitral regurgitation, mild tricuspid regurgitation, no evidence of pulmonary hypertension. Patient will be started on Zosyn along with vancomycin, Dr. Gong on consult. 12/02: Patient evaluated this morning on rounds, sitting up in bed. Patient denies any shortness of breath and states hemoptysis is much better, only only coughing up small amounts of blood on occasion. He continues on Solu-Medrol 60mg IVP Q6 along with Zosyn and Vancomycin for pneumonia. He is afebrile at 97.8, heart rate 70, blood pressure 105/76 he is 95% on 6 L via nasal cannula. Hemoglobin did drop slightly at 9.6, hematocrit 29.3, carbon dioxide 43, BUN 31, creatinine 1.06. Pulmonary is on consult, may need bronchoscopy. Oncology was consulted for the new spiculated right middle lobe mass, concerning for cancer. Cardiology on consult for chronic elevated troponin, echocardiogram is pending. Social work consulted for placement upon discharge, patient was at [facility] but states his insurance ended, so he cannot return there. Objective - Vital Signs Vital signs: Vital Signs Temp 97.8 F 12/03/19 08:30 Pulse 70 12/03/19 08:30 Resp 18 12/03/19 08:30 BP 105/76 12/03/19 08:30 Pulse Ox 95 12/03/19 08:30 Intake & Output 12/02/19 12/03/19 12/03/19 18:59 06:59 18:59 Output Total 500 Balance -500 Weight 90.718 kg 90.4 kg Output: Urine 500 Other: Voiding Method Toilet Urinal # Voids 0 - Exam - Constitutional General appearance: cooperative, mild distress - EENT Eyes: EOMI, PERRLA ENT: hearing grossly normal, normal oropharynx - Neck Neck: no lymphadenopathy, normal ROM, no stridor, thyromegaly - Respiratory Respiratory: bilateral: diminished, rhonchi, expiratory wheezing - Cardiovascular 2/6 systolic ejection murmur, AICD in the left upper pericardium Rhythm: regular Heart sounds: normal: S1, S2 - Gastrointestinal General gastrointestinal: no hepatomegaly, soft, no tenderness - Neurologic Neurologic: CNII-XII intact - Musculoskeletal Musculoskeletal: generalized weakness, strength equal bilaterally - Labs CBC & Chem 7: 12/03/19 05:43 12/03/19 05:43 Labs: Abnormal Lab Results - Last 24 Hours (Table) 12/02/19 12/02/19 12/02/19 Range/Units 10:30 11:27 17:29 RBC (4.30-5.90) m/uL Hgb (13.0-17.5) gm/dL Hct (39.0-53.0) % MCV (80.0-100.0) fL Neutrophils # (1.3-7.7) k/uL Lymphocytes # (1.0-4.8) k/uL Chloride (98-107) mmol/L Carbon Dioxide (22-30) mmol/L BUN (9-20) mg/dL Glucose (74-99) mg/dL POC Glucose (mg/dL) 119 H 162 H (75-99) mg/dL Troponin I 0.055 H* (0.000-0.034) ng/mL Total Protein (6.3-8.2) g/dL Albumin (3.5-5.0) g/dL 12/02/19 12/03/19 12/03/19 Range/Units 21:44 05:43 05:43 RBC 2.88 L (4.30-5.90) m/uL Hgb 9.6 L (13.0-17.5) gm/dL Hct 29.3 L (39.0-53.0) % MCV 101.7 H (80.0-100.0) fL Neutrophils # 8.2 H (1.3-7.7) k/uL Lymphocytes # 0.6 L (1.0-4.8) k/uL Chloride 87 L (98-107) mmol/L Carbon Dioxide 43 H* (22-30) mmol/L BUN 31 H (9-20) mg/dL Glucose 176 H (74-99) mg/dL POC Glucose (mg/dL) 135 H (75-99) mg/dL Troponin I (0.000-0.034) ng/mL Total Protein 5.7 L (6.3-8.2) g/dL Albumin 3.1 L (3.5-5.0) g/dL 12/03/19 Range/Units 06:10 RBC (4.30-5.90) m/uL Hgb (13.0-17.5) gm/dL Hct (39.0-53.0) % MCV (80.0-100.0) fL Neutrophils # (1.3-7.7) k/uL Lymphocytes # (1.0-4.8) k/uL Chloride (98-107) mmol/L Carbon Dioxide (22-30) mmol/L BUN (9-20) mg/dL Glucose (74-99) mg/dL POC Glucose (mg/dL) 198 H (75-99) mg/dL Troponin I (0.000-0.034) ng/mL Total Protein (6.3-8.2) g/dL Albumin (3.5-5.0) g/dL Assessment and Plan Plan: 1. Chronic hypoxic respiratory failure with acute COPD exacerbation, chronic CO2 retention. Consult with Dr. Gong, continue DuoNeb treatments 4 times a day, Solu-Medrol 60 mg every 6 hours, Singulair 10 mg daily, Fluticasone Propion/Salmeterol 250-50 1 puff daily 2. Hemoptysis secondary to lung mass, awaiting pulmonary consult may need bronchoscopy, oncology consulted for new speculated lung mass concerning for cancer. 3. Pneumonia. Continue on IV Levaquin along with Zosyn, Solu-Medrol 60 mg every 6 hours 4. Elevated troponin. Cardiology consult appreciated, history of chronic elevated troponins, awaiting echocardiogram. 5. Left Achilles tendon tear. Recent Achilles tendon tear continue to wear brace. 6. Severe obstructive sleep apnea. Continue with BiPAP 7. Chronic kidney disease stage III. Stable, will monitor kidney function. 8. Coronary artery disease status post coronary artery bypass graft with PCI a nd ischemic cardiomyopathy post-AICD. Continue carvedilol 3.125 mg twice a day, lisinopril 2.5 mg daily, Lipitor 40 mg daily, Zetia 10 mg daily. 9. Hypertension and hypertensive cardiovascular disease. Continue carvedilol 3.125 mg twice daily and lisinopril 2.5 mg daily along with Lasix 40 mg 3 times a day 10. Hyperlipidemia. Continue Zetia 10 mg and atorvastatin 40 mg. 11. Chronic pain syndrome. Continue methadone 12. DVT prophylaxis. Heparin subcu 13. GI prophylaxis. Pepcid 20 mg daily 14. Tobacco dependency. Continue with nicotine patch 21 mg/24 hour transdermal daily The above impression and plan of care have been discussed and directed by signing physician. Jammie Santos nurse practitioner acting as scribe for signing physician.
--- NOTE | 2019-12-03 11:21 | P.PN ---
Subjective Progress Note Date: 12/03/19 This is a 59-year-old gentleman with history of severe ischemic cardiomyopathy and prior bypass surgery and PCI, nicotine dependence, ischemic cardiomyopathy with prior AICD, chronic systolic heart failure, COPD, on home O2, hypertension, hyperlipidemia, chronic pain syndrome on methadone, nicotine dependence, sleep apnea on BiPAP. Multiple hospital admissions mainly for chronic hypoxic respiratory failure secondary to COPD exacerbation and systolic heart failure. Patient also has a history of kidney injury. Patient was at [facility] on the cache for rehab, he developed hemoptysis, started all of a sudden through the night last night. He was also states that he was coughing up some blood clots. He came to the emergency room, CT of the chest was performed which revealed moderate chronic elevation of the right diaphragm, borderline cardiomegaly, mild atelectasis in the right lung base and a new spiculated right middle lobe infiltrate anteriorly and marked enlarged right bronchial lymph nodes, tumor not excluded. Hemoglobin 10.5, hematocrit 31.6, sodium 136, carbon dioxide 42, BUN 24, creatinine 1.0. Serial troponins 0.04, 0.04, 0.05. An echo was performed in September which revealed moderate concentric LVH, systolic function severely impaired with an ejection fraction of 20-25%, moderate MR, mild TR, no evidence of pulmonary hypertension. Requested because of abnormality in troponin. Upon review of the patient's multi-prior admissions, it is noted that the patient persistently has abnormality in troponin. O12/03/19 Patient seen and examined this morning, sitting Comfortably in bed, denies any shortness of breath, no chest discomfort. Hemoptysis is significantly improved, coughing up small amounts of blood this morning. Blood pressure 104/76 with a heart rate in the 70s, 95% on 6 L of oxygen. Hemoglobin 9.6, platelet count 300, sodium 137, potassium 4.2, BUN 31, creatinine 1.0. Objective - Vital Signs Vital signs: Vital Signs Temp 97.8 F 12/03/19 08:30 Pulse 70 12/03/19 08:30 Resp 18 12/03/19 08:30 BP 105/76 12/03/19 08:30 Pulse Ox 95 12/03/19 08:30 Intake & Output 12/02/19 12/03/19 12/03/19 18:59 06:59 18:59 Intake Total 237 Output Total 500 Balance -500 237 Weight 90.718 kg 90.4 kg Intake: Oral 237 Output: Urine 500 Other: Voiding Method Toilet Toilet Urinal Urinal # Voids 0 - Exam PHYSICAL EXAMINATION: GENERAL: 58-year-old gentleman in no acute distress at the time of my examination HEENT: Head is atraumatic, normocephalic. Pupils equal, round. Sclera anicteric. Conjunctiva are clear. Mucous membranes of the mouth are moist. Neck is supple. There is no elevated jugular venous pressure. No carotid bruit is heard. HEART EXAMINATION: S1 and S2 systolic ejection murmur is heard CHEST EXAMINATION: Lungs reveal decreased air entry bilaterally, decreased air exchange, scattered rhonchi ABDOMEN: Soft, obese, nontender. Bowel sounds are heard. No organomegaly noted. EXTREMITIES: 2+ peripheral pulses with 1+ evidence of peripheral edema and no calf tenderness noted. A cast is noted to the left lower extremity NEUROLOGIC patient is awake, alert and oriented 3 - Labs CBC & Chem 7: 12/03/19 05:43 12/03/19 05:43 Labs: Abnormal Lab Results - Last 24 Hours (Table) 12/02/19 12/02/19 12/02/19 Range/Units 10:30 11:27 17:29 RBC (4.30-5.90) m/uL Hgb (13.0-17.5) gm/dL Hct (39.0-53.0) % MCV (80.0-100.0) fL Neutrophils # (1.3-7.7) k/uL Lymphocytes # (1.0-4.8) k/uL Chloride (98-107) mmol/L Carbon Dioxide (22-30) mmol/L BUN (9-20) mg/dL Glucose (74-99) mg/dL POC Glucose (mg/dL) 119 H 162 H (75-99) mg/dL Troponin I 0.055 H* (0.000-0.034) ng/mL Total Protein (6.3-8.2) g/dL Albumin (3.5-5.0) g/dL 12/02/19 12/03/19 12/03/19 Range/Units 21:44 05:43 05:43 RBC 2.88 L (4.30-5.90) m/uL Hgb 9.6 L (13.0-17.5) gm/dL Hct 29.3 L (39.0-53.0) % MCV 101.7 H (80.0-100.0) fL Neutrophils # 8.2 H (1.3-7.7) k/uL Lymphocytes # 0.6 L (1.0-4.8) k/uL Chloride 87 L (98-107) mmol/L Carbon Dioxide 43 H* (22-30) mmol/L BUN 31 H (9-20) mg/dL Glucose 176 H (74-99) mg/dL POC Glucose (mg/dL) 135 H (75-99) mg/dL Troponin I (0.000-0.034) ng/mL Total Protein 5.7 L (6.3-8.2) g/dL Albumin 3.1 L (3.5-5.0) g/dL 12/03/19 Range/Units 06:10 RBC (4.30-5.90) m/uL Hgb (13.0-17.5) gm/dL Hct (39.0-53.0) % MCV (80.0-100.0) fL Neutrophils # (1.3-7.7) k/uL Lymphocytes # (1.0-4.8) k/uL Chloride (98-107) mmol/L Carbon Dioxide (22-30) mmol/L BUN (9-20) mg/dL Glucose (74-99) mg/dL POC Glucose (mg/dL) 198 H (75-99) mg/dL Troponin I (0.000-0.034) ng/mL Total Protein (6.3-8.2) g/dL Albumin (3.5-5.0) g/dL Assessment and Plan Plan: Assessment and Plan: 1. Chronic hypoxic respiratory failure with acute COPD exacerbation, chronic CO2 retention. 2. Hemoptysis possibly secondary to lung mass 3. Pneumonia. 4. Elevated troponin. Not consistent with acute coronary syndrome, patient always runs an abnormal troponin in this range. 5. Left Achilles tendon tear. Recent Achilles tendon tear continue to wear brace. 6. Severe obstructive sleep apnea. 7. Chronic kidney disease stage III. 8. Coronary artery disease status post coronary artery bypass graft with PCI and ischemic cardiomyopathy post-AICD. 9. Hypertension 10. Hyperlipidemia. Plan Limited echocardiogram with Doppler study has been performed which we will review. Continue current medications. DNP note has been reviewed, I agree with a documented findings and plan of care. Patient was seen and examined.
[2019-12-03 11:39] LABS: Glucose,Whole Blood 134 mg/dL (75-99)
[2019-12-03] MEDS: ALPRAZolam 0.25 MG TAB PO PRN (12:13)
[2019-12-03] MEDS: LEVOFLOXACIN 500MG-D5W PMX 500 MG in DEXTROSE/WATER 1 100ML.BAG IVPB SCH (13:16)
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
--- NOTE | 2019-12-03 15:53 | ECHOF ---
Referral Reason:abn trop MEASUREMENTS -------- HEIGHT: 172.7 cm WEIGHT: 90.7 kg BP: IVSd: 1.2 cm (0.6 - 1.1) LVIDd: 4.8 cm (3.9 - 5.3) LVPWd: 1.2 cm (0.6 - 1.1) IVSs: 1.2 cm LVIDs: 4.4 cm LVPWs: 1.3 cm Ao Diam: 3.3 cm (2.0 - 3.7) AV Cusp: 2.0 cm (1.5 - 2.6) LA Diam: 4.6 cm (2.7 - 3.8) MV EXCURSION: 16.226 mm (> 18.000) MV EF SLOPE: 73 mm/s (70 - 150) EPSS: 1.4 cm MV E Parth: 0.41 m/s MV DecT: 143 ms MV A Parth: 0.57 m/s MV E/A Ratio: 0.71 RAP: 5.00 mmHg RVSP: 8.21 mmHg FINDINGS -------- Sinus rhythm. This was a technically difficult study with suboptimal views. The left ventricular size is normal. There is mild concentric left ventricular hypertrophy. There is severe global hypokinesis of LV . Overall left ventricular systolic function is severely impair ed with, an EF between 20 - 25 %. The RV was not well visualized. The left atrium is mildly dilated. The right atrium was not well visualized. xx ml of Lumason was utilized for enhancement of images. The aortic valve was not well visualized. The mitral valve is normal. There is trace mitral regurgitation. The tricuspid valve was not well visualized. The pulmonic valve was not well visualized. The aortic root size is normal. IVC Not well visulized. There is no pericardial effusion. CONCLUSIONS -------- 1. Sinus rhythm. 2. This was a technically difficult study with suboptimal views. 3. The left ventricular size is normal. 4. There is mild concentric left ventricular hypertrophy. 5. There is severe global hypokinesis of LV . 6. Overall left ventricular systolic function is severely impaired with, an EF between 20 - 25 %. 7. The RV was not well visualized. 8. The left atrium is mildly dilated. 9. The right atrium was not well visualized. 10. xx ml of Lumason was utilized for enhancement of images. 11. The aortic valve was not well visualized. 12. The mitral valve is normal. 13. There is trace mitral regurgitation. 14. The tricuspid valve was not well visualized. 15. The pulmonic valve was not well visualized. 16. The aortic root size is normal. 17. IVC Not well visulized. 18. There is no pericardial effusion. COMPUTER NETWORK AND SYSTEMS ENGINEER: Ryann Cadet RDCS
[2019-12-03 16:46] LABS: Glucose,Whole Blood 155 mg/dL (75-99)
[2019-12-03 20:56] LABS: Glucose,Whole Blood 168 mg/dL (75-99)
[2019-12-03] MEDS: MONTELUKAST 10 MG TAB PO SCH (21:56)
[2019-12-03] MEDS: ATORVASTATIN 40 MG TAB PO SCH (21:56)
[2019-12-03] MEDS: ALPRAZolam 0.25 MG TAB PO SCH (21:57)
[2019-12-03] MEDS: EZETIMIBE 10 MG TAB PO SCH (23:24)
[2019-12-04] MEDS: PIPERACILLIN-TAZOBACTAM 3.375 GM in SODIUM CHLORIDE 0.9% 100 ML IVPB SCH ×4 (01:51→23:49)
[2019-12-04 06:03] LABS: Glucose,Whole Blood 160 mg/dL (75-99)
[2019-12-04] MEDS: methylPREDNISolone SOD SUCCI 125 MG/2 ML VIAL IV SCH ×4 (06:28→23:47)
[2019-12-04] MEDS: INSULIN ASPART (NovoLOG) 100 UNIT/ML VIAL SQ SCH ×4 (06:29→20:44)
[2019-12-04] MEDS: carvediloL 3.125 MG TAB PO SCH ×2 (06:29→16:02)
[2019-12-04 07:07] LABS: Basophils % (A) 0 %; Eosinophils % (A) 0 %; HCT 27.5 % (39.0-53.0); HGB 9.1 gm/dL (13.0-17.5); Lymphocytes # (A) 0.7 k/uL (1.0-4.8); Lymphocytes % (A) 6 %; MCH 33.6 pg (25.0-35.0); MCHC 33.2 g/dL (31.0-37.0); MCV 101.2 fL (80.0-100.0); Macrocytosis Slight; Mean Platelet Volume 6.7; Monocytes # (A) 0.4 k/uL (0-1.0); Monocytes % (A) 4 %; Neutrophils # (A) 9.6 k/uL (1.3-7.7); Neutrophils % (A) 89 %; Platelet Count 302 k/uL (150-450); RBC 2.72 m/uL (4.30-5.90); RDW 14.3 % (11.5-15.5); WBC 10.7 k/uL (3.8-10.6)
[2019-12-04 07:18] LABS: Albumin 3.1 g/dL (3.5-5.0); Calcium 8.7 mg/dL (8.4-10.2); Potassium 3.8 mmol/L (3.5-5.1); Total Bilirubin 0.2 mg/dL (0.2-1.3); Total Protein 5.6 g/dL (6.3-8.2)
[2019-12-04] MEDS: IPRATROPIUM-ALBUTEROL 3 ML NEB INHALATION SCH ×4 (08:43→19:20)
[2019-12-04] MEDS: SALMETEROL INHALATION SCH ×2 (08:53→08:55)
[2019-12-04] MEDS: NICOTINE 21MG/24HR PATCH TRANSDERM SCH (08:53)
[2019-12-04] MEDS: METHADONE 10 MG TAB PO SCH (08:53)
[2019-12-04] MEDS: FLUTICASONE PROPION INHALATION SCH ×2 (08:53→08:55)
[2019-12-04] MEDS: FUROSEMIDE 40 MG TAB PO SCH ×3 (08:54→23:48)
[2019-12-04] MEDS: FAMOTIDINE 20 MG TAB PO SCH (08:54)
[2019-12-04] MEDS: guaiFENesin 600 MG TABLET.ER PO SCH ×2 (08:54→20:43)
[2019-12-04] MEDS: MULTIVITAMINS, THERA 1 EACH TAB PO SCH (08:54)
[2019-12-04] MEDS: LORATADINE 10 MG TAB PO SCH (08:54)
[2019-12-04] MEDS: METHADONE 5 MG TAB PO SCH (08:54)
[2019-12-04] MEDS: HEPARIN SODIUM,PORCINE 5,000 UNIT/ML 1 ML VIAL SQ SCH ×2 (08:55→20:44)
--- NOTE | 2019-12-04 09:50 | P.PN ---
Subjective This is a 59-year-old male patient of Dr. Knox's, Dr. Vivas and, and Dr. Gong, has a past medical history of coronary artery disease status post coronary artery bypass grafting and previous angioplasty and stenting, ischemic cardiomyopathy ejection fraction of 20-25%, status post AICD, chronic systolic heart failure, chronic COPD, chronic hypoxic respiratory failure on home O2, hypertension, hyperlipidemia, chronic pain syndrome on methadone, tobacco use, obstructive sleep apnea, on BiPAP. Patient has had multiple admissions mostly for acute on chronic hypoxic respiratory failure secondary to acute on chronic systolic heart failure and COPD and acute kidney injury. Patient was recently admitted on 11/14/19 for chronic hypoxic respiratory failure with acute COPD exacerbation along with an acute Achilles tendon tear. Patient was at [facility] for rehab when he developed hemoptysis. Patient reports he was sleeping when he started to cough up blood and noticed it several times throughout the day states he is coughing up bright red clots. Patient presented to the emergency department where a CT of the chest was performed that showed moderate chronic elevation of the right diaphragm, borderline cardiomegaly, mild atelectasis in the right lung base, new spiculated right middle lobe infiltrate anteriorly and marked enlarged right bronchial lymph nodes, tumor is not excluded. Labs hemoglobin 10.5, hematocrit 31.6, sodium 136, carbon dioxide 42, BUN 24, creatinine 1.05. Serial troponins 0.043, 0.054, cardiology on consult. Echocardiogram done in September 2019, showed moderate concentric left ventricular hypertrophy, systolic function severely impaired with ejection fraction between 20-25%, moderate mitral regurgitation, mild tricuspid regurgitation, no evidence of pulmonary hypertension. Patient will be started on Zosyn along with vancomycin, Dr. Gong on consult. 12/02: Patient evaluated this morning on rounds, sitting up in bed. Patient denies any shortness of breath and states hemoptysis is much better, only only coughing up small amounts of blood on occasion. He continues on Solu-Medrol 60mg IVP Q6 along with Zosyn and Vancomycin for pneumonia. He is afebrile at 97.8, heart rate 70, blood pressure 105/76 he is 95% on 6 L via nasal cannula. Hemoglobin did drop slightly at 9.6, hematocrit 29.3, carbon dioxide 43, BUN 31, creatinine 1.06. Pulmonary is on consult, may need bronchoscopy. Oncology was consulted for the new spiculated right middle lobe mass, concerning for cancer. Cardiology on consult for chronic elevated troponin, echocardiogram is pending. Social work consulted for placement upon discharge, patient was at [facility] but states his insurance ended, so he cannot return there. 12/03: Patient evaluated this morning, denies any worsening shortness of breath, denies any further episodes of hemoptysis. He remains on Solu-Medrol 60 mg IV push every 6 hours along Zosyn and vancomycin for pneumonia. Vital signs are stable blood pressure 122/77, heart rate 58, respiratory rate 18, afebrile 97.7, 96% on 6 L. Patient is deemed high risk for any invasive procedure including a bronchoscopy or biopsy. It is recommended he have follow-up CT and PET scan as outpatient to further assess the possibility of neoplasm. Labs have been stable white count 10.7, most likely due to steroids, hemoglobin 9.1, hematocrit 27.5, sodium 136 BUN 38, creatinine 1.14, carbon dioxide 43, patient has chronic Co2 retention. developmental services worker consult for placement, patient will more than likely need long-term placement and care. Objective - Vital Signs Vital signs: Vital Signs Temp 97.7 F 12/04/19 08:52 Pulse 58 L 12/04/19 08:52 Resp 18 12/04/19 08:52 BP 122/77 12/04/19 08:52 Pulse Ox 96 12/04/19 08:52 Intake & Output 12/03/19 12/04/19 12/04/19 18:59 06:59 18:59 Intake Total 811 Output Total 1900 Balance 811 -1900 Weight 91.4 kg Intake: Intake, IV Titration 100 Amount Piperacillin-Tazobactam 3 100 .375 gm In Sodium Chloride 0.9% 100 ml @ 25 mls/hr IVPB Q8HR [facility] Rx# :[id number] Oral 711 Output: Urine 1900 Other: Voiding Method Toilet Toilet Urinal Urinal # Voids 0 - Exam - Constitutional General appearance: cooperative, mild distress - EENT Eyes: EOMI, PERRLA ENT: hearing grossly normal, normal oropharynx - Neck Neck: no lymphadenopathy, normal ROM, no stridor, thyromegaly - Respiratory Respiratory: bilateral: diminished, rhonchi, expiratory wheezing - Cardiovascular 2/6 systolic ejection murmur, AICD in the left upper pericardium Rhythm: regular Heart sounds: normal: S1, S2 - Gastrointestinal General gastrointestinal: no hepatomegaly, soft, no tenderness - Neurologic Neurologic: CNII-XII intact - Musculoskeletal Musculoskeletal: generalized weakness, strength equal bilaterally - Labs CBC & Chem 7: 12/04/19 05:31 12/04/19 05:31 Labs: Abnormal Lab Results - Last 24 Hours (Table) 12/03/19 12/03/19 12/03/19 Range/Units 11:37 16:44 20:55 WBC (3.8-10.6) k/uL RBC (4.30-5.90) m/uL Hgb (13.0-17.5) gm/dL Hct (39.0-53.0) % MCV (80.0-100.0) fL Neutrophils # (1.3-7.7) k/uL Lymphocytes # (1.0-4.8) k/uL Sodium (137-145) mmol/L Chloride (98-107) mmol/L Carbon Dioxide (22-30) mmol/L BUN (9-20) mg/dL Glucose (74-99) mg/dL POC Glucose (mg/dL) 134 H 155 H 168 H (75-99) mg/dL Total Protein (6.3-8.2) g/dL Albumin (3.5-5.0) g/dL 12/04/19 12/04/19 12/04/19 Range/Units 05:31 05:31 06:01 WBC 10.7 H (3.8-10.6) k/uL RBC 2.72 L (4.30-5.90) m/uL Hgb 9.1 L (13.0-17.5) gm/dL Hct 27.5 L (39.0-53.0) % MCV 101.2 H (80.0-100.0) fL Neutrophils # 9.6 H (1.3-7.7) k/uL Lymphocytes # 0.7 L (1.0-4.8) k/uL Sodium 136 L (137-145) mmol/L Chloride 88 L (98-107) mmol/L Carbon Dioxide 43 H* (22-30) mmol/L BUN 38 H (9-20) mg/dL Glucose 132 H (74-99) mg/dL POC Glucose (mg/dL) 160 H (75-99) mg/dL Total Protein 5.6 L (6.3-8.2) g/dL Albumin 3.1 L (3.5-5.0) g/dL Assessment and Plan Plan: 1. Chronic hypoxic respiratory failure with acute COPD exacerbation, chronic CO2 retention. Consult with Dr. Gong, continue DuoNeb treatments, Solu-Medrol 60 mg every 6 hours, supplemental oxygen, and Fluticasone Propion/Salmeterol 1 puff daily 2. Hemoptysis secondary to lung mass. Pulmonary consult appreciated, will need PET scan and CT as outpatient. No plan for bronchoscopy or biopsy at this time. 3. Pneumonia. Continue with Alana Quesada was DC'd per pulmonary's recommendations. Solu-Medrol 60 mg every 6 hours, along with DuoNeb's 4. Elevated troponin. Cardiology on consult, acute coronary syndrome ruled out 5. Left Achilles tendon tear. Recent Achilles tendon tear continue to wear brace. 6. Severe obstructive sleep apnea. Continue with BiPAP 7. Chronic kidney disease stage III. Stable, will monitor kidney function. 8. Coronary artery disease status post coronary artery bypass graft with PCI and ischemic cardiomyopathy post-AICD. Continue carvedilol 3.125 mg twice a day, Lipitor 40 mg daily, Zetia 10 mg daily. 9. Hypertension and hypertensive cardiovascular disease. Continue carvedilol 3.125 mg twice daily and lisinopril 2.5 mg daily 10. Hyperlipidemia. Continue Zetia 10 mg and atorvastatin 40 mg. 11. Chronic pain syndrome. Continue methadone 12. DVT prophylaxis. Heparin subcu 13. GI prophylaxis. Pepcid 20 mg daily 14. Tobacco use and dependence. Continue nicotine patch The above impression and plan of care have been discussed and directed by signing physician. Jammie Santos nurse practitioner acting as scribe for signing physician.
--- NOTE | 2019-12-04 10:19 | P.PN ---
Subjective Progress Note Date: 12/04/19 Principal diagnosis: RML and rt hilar abnormality in f/u today pt is feeling much better, reports decrease in amount of hemoptysis, he is expectorating well, breathing effort is decreased Objective - Vital Signs Vital signs: Vital Signs Temp 97.7 F 12/04/19 08:52 Pulse 58 L 12/04/19 08:52 Resp 18 12/04/19 08:52 BP 122/77 12/04/19 08:52 Pulse Ox 96 12/04/19 08:52 Intake & Output 12/03/19 12/04/19 12/04/19 18:59 06:59 18:59 Intake Total 811 Output Total 1900 Balance 811 -1900 Weight 91.4 kg Intake: Intake, IV Titration 100 Amount Piperacillin-Tazobactam 3 100 .375 gm In Sodium Chloride 0.9% 100 ml @ 25 mls/hr IVPB Q8HR [facility] Rx# :[id number] Oral 711 Output: Urine 1900 Other: Voiding Method Toilet Toilet Toilet Urinal Urinal Urinal # Voids 0 - Constitutional General appearance: Present: cooperative, no acute distress, obese - EENT Eyes: Present: anicteric sclerae, EOMI ENT: Present: hearing grossly normal - Respiratory Respiratory: bilateral: CTA, diminished - Cardiovascular Heart sounds: normal: S1, S2 - Peripheral edema leg Peripheral Edema: bilateral: None - Gastrointestinal General gastrointestinal: Present: soft - Neurologic Neurologic: Present: CNII-XII intact - Musculoskeletal Musculoskeletal: Present: strength equal bilaterally - Psychiatric Psychiatric: Present: A&O x's 3, appropriate affect, intact judgment & insight - Labs CBC & Chem 7: 12/04/19 05:31 12/04/19 05:31 Labs: Abnormal Lab Results - Last 24 Hours (Table) 12/03/19 12/03/19 12/03/19 Range/Units 11:37 16:44 20:55 WBC (3.8-10.6) k/uL RBC (4.30-5.90) m/uL Hgb (13.0-17.5) gm/dL Hct (39.0-53.0) % MCV (80.0-100.0) fL Neutrophils # (1.3-7.7) k/uL Lymphocytes # (1.0-4.8) k/uL Sodium (137-145) mmol/L Chloride (98-107) mmol/L Carbon Dioxide (22-30) mmol/L BUN (9-20) mg/dL Glucose (74-99) mg/dL POC Glucose (mg/dL) 134 H 155 H 168 H (75-99) mg/dL Total Protein (6.3-8.2) g/dL Albumin (3.5-5.0) g/dL 12/04/19 12/04/19 12/04/19 Range/Units 05:31 05:31 06:01 WBC 10.7 H (3.8-10.6) k/uL RBC 2.72 L (4.30-5.90) m/uL Hgb 9.1 L (13.0-17.5) gm/dL Hct 27.5 L (39.0-53.0) % MCV 101.2 H (80.0-100.0) fL Neutrophils # 9.6 H (1.3-7.7) k/uL Lymphocytes # 0.7 L (1.0-4.8) k/uL Sodium 136 L (137-145) mmol/L Chloride 88 L (98-107) mmol/L Carbon Dioxide 43 H* (22-30) mmol/L BUN 38 H (9-20) mg/dL Glucose 132 H (74-99) mg/dL POC Glucose (mg/dL) 160 H (75-99) mg/dL Total Protein 5.6 L (6.3-8.2) g/dL Albumin 3.1 L (3.5-5.0) g/dL Assessment and Plan (1) Hemoptysis Current Visit: Yes Status: Acute Priority: High Code(s): R04.2 - HEMOPTYSIS SNOMED Code(s): 90208593 (2) Right middle lobe pulmonary infiltrate Current Visit: Yes Status: Acute Priority: High Code(s): R91.8 - OTHER NONSPECIFIC ABNORMAL FINDING OF LUNG FIELD SNOMED Code(s): 483120815 Plan: I spoke with Dr. Gong about case. Plan at this time is to treat for infection with short term CT scan f/u, which is very reasonable. Dr. Gong will refer pt to Onc if needed based on Pulm f/u in the next 4-6 weeks Thank you the consult. We will sign off but are available if needed
--- NOTE | 2019-12-04 11:07 | P.PN ---
Subjective Progress Note Date: 12/04/19 This is a 59-year-old gentleman with history of severe ischemic cardiomyopathy and prior bypass surgery and PCI, nicotine dependence, ischemic cardiomyopathy with prior AICD, chronic systolic heart failure, COPD, on home O2, hypertension, hyperlipidemia, chronic pain syndrome on methadone, nicotine dependence, sleep apnea on BiPAP. Multiple hospital admissions mainly for chronic hypoxic respiratory failure secondary to COPD exacerbation and systolic heart failure. Patient also has a history of kidney injury. Patient was at [facility] the [place] for rehab, he developed hemoptysis, started all of a sudden through the night last night. He was also states that he was coughing up some blood clots. He came to the emergency room, CT of the chest was performed which revealed moderate chronic elevation of the right diaphragm, borderline cardiomegaly, mild atelectasis in the right lung base and a new spiculated right middle lobe infiltrate anteriorly and marked enlarged right bronchial lymph nodes, tumor not excluded. Hemoglobin 10.5, hematocrit 31.6, sodium 136, carbon dioxide 42, BUN 24, creatinine 1.0. Serial troponins 0.04, 0.04, 0.05. An echo was performed in September which revealed moderate concentric LVH, systolic function severely impaired with an ejection fraction of 20-25%, moderate MR, mild TR, no evidence of pulmonary hypertension. Requested because of abnormality in troponin. Upon review of the patient's multi-prior admissions, it is noted that the patient persistently has abnormality in troponin. O12/03/19 Patient seen and examined this morning, sitting Comfortably in bed, denies any shortness of breath, no chest discomfort. Hemoptysis is significantly improved, coughing up small amounts of blood this morning. Blood pressure 104/76 with a heart rate in the 70s, 95% on 6 L of oxygen. Hemoglobin 9.6, platelet count 300, sodium 137, potassium 4.2, BUN 31, creatinine 1.0. 12/04/2019 Patient seen and examined this morning, echocardiogram with Doppler study was reviewed, similar to prior echo. Blood pressure 122/70 with a heart rate in the 50s to 60s, 96% on 6 L of oxygen. White blood cell count 10.7, hemoglobin 9.1, platelet count 302. Sodium 136, potassium 3.8, BUN 38, creatinine 1.1. Objective - Vital Signs Vital signs: Vital Signs Temp 97.7 F 12/04/19 08:52 Pulse 58 L 12/04/19 08:52 Resp 18 12/04/19 08:52 BP 122/77 12/04/19 08:52 Pulse Ox 96 12/04/19 08:52 Intake & Output 12/03/19 12/04/19 12/04/19 18:59 06:59 18:59 Intake Total 811 Output Total 1900 Balance 811 -1900 Weight 91.4 kg Intake: Intake, IV Titration 100 Amount Piperacillin-Tazobactam 3 100 .375 gm In Sodium Chloride 0.9% 100 ml @ 25 mls/hr IVPB Q8HR [facility] Rx# :[id number] Oral 711 Output: Urine 1900 Other: Voiding Method Toilet Toilet Toilet Urinal Urinal Urinal # Voids 0 - Exam PHYSICAL EXAMINATION: GENERAL: 58-year-old gentleman in no acute distress at the time of my examination HEENT: Head is atraumatic, normocephalic. Pupils equal, round. Sclera anicteric. Conjunctiva are clear. Mucous membranes of the mouth are moist. Neck is supple. There is no elevated jugular venous pressure. No carotid bruit is heard. HEART EXAMINATION: S1 and S2 systolic ejection murmur is heard CHEST EXAMINATION: Lungs reveal decreased air entry bilaterally, decreased air exchange, scattered rhonchi ABDOMEN: Soft, obese, nontender. Bowel sounds are heard. No organomegaly noted. EXTREMITIES: 2+ peripheral pulses with 1+ evidence of peripheral edema and no calf tenderness noted. A cast is noted to the left lower extremity NEUROLOGIC patient is awake, alert and oriented 3 - Labs CBC & Chem 7: 12/04/19 05:31 12/04/19 05:31 Labs: Abnormal Lab Results - Last 24 Hours (Table) 12/03/19 12/03/19 12/03/19 Range/Units 11:37 16:44 20:55 WBC (3.8-10.6) k/uL RBC (4.30-5.90) m/uL Hgb (13.0-17.5) gm/dL Hct (39.0-53.0) % MCV (80.0-100.0) fL Neutrophils # (1.3-7.7) k/uL Lymphocytes # (1.0-4.8) k/uL Sodium (137-145) mmol/L Chloride (98-107) mmol/L Carbon Dioxide (22-30) mmol/L BUN (9-20) mg/dL Glucose (74-99) mg/dL POC Glucose (mg/dL) 134 H 155 H 168 H (75-99) mg/dL Total Protein (6.3-8.2) g/dL Albumin (3.5-5.0) g/dL 12/04/19 12/04/19 12/04/19 Range/Units 05:31 05:31 06:01 WBC 10.7 H (3.8-10.6) k/uL RBC 2.72 L (4.30-5.90) m/uL Hgb 9.1 L (13.0-17.5) gm/dL Hct 27.5 L (39.0-53.0) % MCV 101.2 H (80.0-100.0) fL Neutrophils # 9.6 H (1.3-7.7) k/uL Lymphocytes # 0.7 L (1.0-4.8) k/uL Sodium 136 L (137-145) mmol/L Chloride 88 L (98-107) mmol/L Carbon Dioxide 43 H* (22-30) mmol/L BUN 38 H (9-20) mg/dL Glucose 132 H (74-99) mg/dL POC Glucose (mg/dL) 160 H (75-99) mg/dL Total Protein 5.6 L (6.3-8.2) g/dL Albumin 3.1 L (3.5-5.0) g/dL Assessment and Plan Plan: Assessment and Plan: 1. Chronic hypoxic respiratory failure with acute COPD exacerbation, chronic CO2 retention. 2. Hemoptysis possibly secondary to lung mass 3. Pneumonia. 4. Elevated troponin. Not consistent with acute coronary syndrome, patient always runs an abnormal troponin in this range. 5. Left Achilles tendon tear. Recent Achilles tendon tear continue to wear brace. 6. Severe obstructive sleep apnea. 7. Chronic kidney disease stage III. 8. Coronary artery disease status post coronary artery bypass graft with PCI and ischemic cardiomyopathy post-AICD. 9. Hypertension 10. Hyperlipidemia. Plan Limited echocardiogram with Doppler study was reviewed, unchanged from prior. We will follow this patient along with you now on an as-needed basis only, please don't hesitate to call with any questions. DNP note has been reviewed, I agree with a documented findings and plan of care. Patient was seen and examined.
[2019-12-04] MEDS: ALPRAZolam 0.25 MG TAB PO PRN (11:47)
[2019-12-04 11:54] LABS: Glucose,Whole Blood 120 mg/dL (75-99)
[2019-12-04 16:41] LABS: Glucose,Whole Blood 258 mg/dL (75-99)
[2019-12-04] MEDS: OXYMETAZOLINE 0.05% NASL SPRAY 1 SPRAY BOTTLE NASAL SCH ×2 (18:32→20:45)
[2019-12-04 20:38] LABS: Glucose,Whole Blood 186 mg/dL (75-99)
[2019-12-04] MEDS: MONTELUKAST 10 MG TAB PO SCH (20:43)
[2019-12-04] MEDS: ALPRAZolam 0.25 MG TAB PO SCH (20:43)
[2019-12-04] MEDS: ATORVASTATIN 40 MG TAB PO SCH (20:44)
[2019-12-04] MEDS: EZETIMIBE 10 MG TAB PO SCH (20:44)
[2019-12-05] MEDS: SALMETEROL INHALATION SCH (00:36)
[2019-12-05] MEDS: FLUTICASONE PROPION INHALATION SCH (00:36)
[2019-12-05 06:13] LABS: Glucose,Whole Blood 216 mg/dL (75-99)
[2019-12-05] MEDS: carvediloL 3.125 MG TAB PO SCH ×2 (06:31→16:49)
[2019-12-05] MEDS: methylPREDNISolone SOD SUCCI 125 MG/2 ML VIAL IV SCH ×3 (06:31→16:49)
[2019-12-05] MEDS: INSULIN ASPART (NovoLOG) 100 UNIT/ML VIAL SQ SCH ×3 (06:32→16:49)
[2019-12-05] MEDS: IPRATROPIUM-ALBUTEROL 3 ML NEB INHALATION SCH ×3 (07:57→15:49)
[2019-12-05 08:11] LABS: Basophils % (A) 0 %; Eosinophils % (A) 0 %; HCT 29.7 % (39.0-53.0); HGB 9.1 gm/dL (13.0-17.5); Lymphocytes # (A) 0.6 k/uL (1.0-4.8); Lymphocytes % (A) 6 %; MCH 31.2 pg (25.0-35.0); MCHC 30.7 g/dL (31.0-37.0); MCV 101.5 fL (80.0-100.0); Macrocytosis Slight; Mean Platelet Volume 6.9; Monocytes # (A) 0.7 k/uL (0-1.0); Monocytes % (A) 6 %; Neutrophils # (A) 9.4 k/uL (1.3-7.7); Neutrophils % (A) 87 %; Platelet Count 322 k/uL (150-450); RBC 2.93 m/uL (4.30-5.90); RDW 14.4 % (11.5-15.5); WBC 10.8 k/uL (3.8-10.6)
[2019-12-05 08:19] LABS: Albumin 3.3 g/dL (3.5-5.0); Calcium 8.8 mg/dL (8.4-10.2); Potassium 3.6 mmol/L (3.5-5.1); Total Bilirubin 0.3 mg/dL (0.2-1.3); Total Protein 5.7 g/dL (6.3-8.2)
[2019-12-05] MEDS: FUROSEMIDE 40 MG TAB PO SCH ×2 (08:24→16:49)
[2019-12-05] MEDS: guaiFENesin 600 MG TABLET.ER PO SCH (08:24)
[2019-12-05] MEDS: FAMOTIDINE 20 MG TAB PO SCH (08:24)
[2019-12-05] MEDS: MULTIVITAMINS, THERA 1 EACH TAB PO SCH (08:24)
[2019-12-05] MEDS: METHADONE 10 MG TAB PO SCH (08:25)
[2019-12-05] MEDS: METHADONE 5 MG TAB PO SCH (08:25)
[2019-12-05] MEDS: HEPARIN SODIUM,PORCINE 5,000 UNIT/ML 1 ML VIAL SQ SCH (08:26)
[2019-12-05] MEDS: LORATADINE 10 MG TAB PO SCH (08:26)
[2019-12-05] MEDS: NICOTINE 21MG/24HR PATCH TRANSDERM SCH (08:26)
[2019-12-05] MEDS: PIPERACILLIN-TAZOBACTAM 3.375 GM in SODIUM CHLORIDE 0.9% 100 ML IVPB SCH (08:27)
--- NOTE | 2019-12-05 09:47 | P.DS ---
Providers Date of admission: 12/01/19 23:21 Attending physician: Radha Conner Consults: 12/02/19 00:32 Consult Physician Routine Consulting Provider: Jose L Gong Consult Reason/Comments: known Do you want consulting provider notified?: Yes 12/02/19 11:02 Consult Physician Routine Consulting Provider: Cezar Vivas Consult Reason/Comments: elevated troponin Do you want consulting provider notified?: Yes 12/03/19 09:05 Consult Physician Routine Consulting Provider: Atul Perez Consult Reason/Comments: Lung Cancer Do you want consulting provider notified?: Yes Primary care physician: [facility] Course: This is a 59-year-old male patient of Dr. Knox's, Dr. Vivas and, and Dr. Gong, has a past medical history of coronary artery disease status post coronary artery bypass grafting and previous angioplasty and stenting, ischemic cardiomyopathy ejection fraction of 20-25%, status post AICD, chronic systolic heart failure, chronic COPD, chronic hypoxic respiratory failure on home O2, hypertension, hyperlipidemia, chronic pain syndrome on methadone, tobacco use, obstructive sleep apnea, on BiPAP. Patient has had multiple admissions mostly for acute on chronic hypoxic respiratory failure secondary to acute on chronic systolic heart failure and COPD and acute kidney injury. Patient was recently admitted on 11/14/19 for chronic hypoxic respiratory failure with acute COPD exacerbation along with an acute Achilles tendon tear. Patient was at [facility] for rehab when he developed hemoptysis. Patient reports he was sleeping when he started to cough up blood and noticed it several times throughout the day states he is coughing up bright red clots. Patient presented to the emergency department where a CT of the chest was performed that showed moderate chronic elevation of the right diaphragm, borderline cardiomegaly, mild atelectasis in the right lung base, new spiculated right middle lobe infiltrate anteriorly and marked enlarged right bronchial lymph nodes, tumor is not excluded. Labs hemoglobin 10.5, hematocrit 31.6, sodium 136, carbon dioxide 42, BUN 24, creatinine 1.05. Serial troponins 0.043, 0.054, cardiology on consult. Echocardiogram done in September 2019, showed moderate concentric left ventricular hypertrophy, systolic function severely impaired with ejection fraction between 20-25%, moderate mitral regurgitation, mild tricuspid regurgitation, no evidence of pulmonary hypertension. Patient will be started on Zosyn along with vancomycin, Dr. Gong on consult. 12/02: Patient evaluated this morning on rounds, sitting up in bed. Patient denies any shortness of breath and states hemoptysis is much better, only only coughing up small amounts of blood on occasion. He continues on Solu-Medrol 60mg IVP Q6 along with Zosyn and Vancomycin for pneumonia. He is afebrile at 97.8, heart rate 70, blood pressure 105/76 he is 95% on 6 L via nasal cannula. Hemoglobin did drop slightly at 9.6, hematocrit 29.3, carbon dioxide 43, BUN 31, creatinine 1.06. Pulmonary is on consult, may need bronchoscopy. Oncology was consulted for the new spiculated right middle lobe mass, concerning for cancer. Cardiology on consult for chronic elevated troponin, echocardiogram is pending. Social work consulted for placement upon discharge, patient was at [facility] but states his insurance ended, so he cannot return there. 12/03: Patient evaluated this morning, denies any worsening shortness of breath, denies any further episodes of hemoptysis. He remains on Solu-Medrol 60 mg IV push every 6 hours along Zosyn and vancomycin for pneumonia. Vital signs are stable blood pressure 122/77, heart rate 58, respiratory rate 18, afebrile 97.7, 96% on 6 L. Patient is deemed high risk for any invasive procedure including a bronchoscopy or biopsy. It is recommended he have follow-up CT and PET scan as outpatient to further assess the possibility of neoplasm. Labs have been stable white count 10.7, most likely due to steroids, hemoglobin 9.1, hematocrit 27.5, sodium 136 BUN 38, creatinine 1.14, carbon dioxide 43, patient has chronic Co2 retention. 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 12/04: Patient denies any further episodes of hemoptysis, shortness of breath has improved. Echocardiogram was similar to prior and unchanged, showed left ventricular hypertrophy, severe global hypokinesis of the LV, severely impaired left ventricular systolic function, with an EF between 20-25%, mild mitral regurgitation. Oncology and pulmonary note reviewed, plan for short-term CT follow-up and follow-up with Dr. Gong as outpatient, and will consult with oncology if needed. IV antibiotics transitioned to oral doxycycline along with a prednisone taper. Vital signs are stable, he remains afebrile 98.3, respiratory rate 17, blood pressure 118/66, heart rate 61, 94% on 5 L via nasal cannula. Plan for [facility] today, will more than likely need long-term placement. Discharge diagnoses 1. Chronic hypoxic respiratory failure with acute COPD exacerbation, chronic CO2 retention. 2. Hemoptysis secondary to lung mass. 3. Pneumonia. 4. Elevated troponin. 5. Left Achilles tendon tear. 6. Severe obstructive sleep apnea. 7. Chronic kidney disease stage III. 8. Coronary artery disease status post coronary artery bypass graft with PCI and ischemic cardiomyopathy post-AICD. 9. Hypertension and hypertensive cardiovascular disease. 10. Hyperlipidemia. 11. Chronic pain syndrome. 12. Tobacco use and dependence. Continue nicotine patch The above impression and plan of care have been discussed and directed by signing physician. Jammie Santos nurse practitioner acting as scribe for signing physician. Patient Condition at Discharge: Fair Plan - Discharge Summary Discharge Rx Participant: No New Discharge Prescriptions: New Doxycycline Hyclate 100 mg PO BID 3 Days #10 tab predniSONE 10 mg PO DIRECTED #20 tab ALPRAZolam [Xanax] 0.25 mg PO DAILY@1200 PRN #3 tab PRN Reason: Anxiety Continue Nitroglycerin Sl Tabs [Nitrostat] 0.4 mg SUBLINGUAL Q5M PRN #25 tab PRN Reason: Chest Pain Nicotine 21Mg/24Hr Patch [Habitrol] 1 patch TRANSDERM DAILY #30 patch Montelukast [Singulair] 10 mg PO HS #30 tab Multivitamins, Thera [Multivitamin (formulary)] 1 tab PO DAILY Ezetimibe [Zetia] 10 mg PO HS Cetirizine HCl [Zyrtec] 10 mg PO DAILY Fluticasone Propion/Salmeterol [Wixela 250-50 Inhub] 1 puff INHALATION RT-BID Aspirin 81 mg PO DAILY #0 chew Carvedilol [Coreg] 3.125 mg PO AC-BID #60 tab Lisinopril [Zestril] 2.5 mg PO DAILY #30 tab Furosemide [Lasix] 40 mg PO TID Methadone [Dolophine] 110 mg PO DAILY #33 tab Methadone [Dolophine] 5 mg PO DAILY #3 tab guaiFENesin [Mucinex] 600 mg PO Q12HR tablet.er ALPRAZolam [Xanax] 0.25 mg PO DAILY@1200 PRN PRN Reason: Anxiety Acetaminophen Tab [Tylenol] 650 mg PO Q4H PRN PRN Reason: Pain Tiotropium Carefree [Spiriva] 1 cap INHALATION RT-DAILY Albuterol Sulfate [Ventolin HFA] 1 - 2 puff INHALATION RT-Q6H PRN PRN Reason: Shortness Of Breath Atorvastatin [Lipitor] 40 mg PO HS ALPRAZolam [Xanax] 0.75 mg PO HS #9 tab Discontinued predniSONE 20 mg PO DAILY Discharge Medication List Nitroglycerin Sl Tabs [Nitrostat] 0.4 mg SUBLINGUAL Q5M PRN #25 tab 09/24/18 [Rx] Montelukast [Singulair] 10 mg PO HS #30 tab 09/27/18 [Rx] Nicotine 21Mg/24Hr Patch [Habitrol] 1 patch TRANSDERM DAILY #30 patch 09/27/18 [Rx] Multivitamins, Thera [Multivitamin (formulary)] 1 tab PO DAILY 04/22/19 [History] Cetirizine HCl [Zyrtec] 10 mg PO DAILY 08/30/19 [History] Ezetimibe [Zetia] 10 mg PO HS 08/30/19 [History] Fluticasone Propion/Salmeterol [Wixela 250-50 Inhub] 1 puff INHALATION RT-BID 08/30/19 [History] Aspirin 81 mg PO DAILY #0 chew 09/30/19 [Rx] Carvedilol [Coreg] 3.125 mg PO AC-BID #60 tab 09/30/19 [Rx] Lisinopril [Zestril] 2.5 mg PO DAILY #30 tab 09/30/19 [Rx] Furosemide [Lasix] 40 mg PO TID 11/13/19 [History] Methadone [Dolophine] 5 mg PO DAILY #3 tab 11/17/19 [Rx] Methadone [Dolophine] 110 mg PO DAILY #33 tab 11/17/19 [Rx] guaiFENesin [Mucinex] 600 mg PO Q12HR tablet.er 11/17/19 [Rx] ALPRAZolam [Xanax] 0.25 mg PO DAILY@1200 PRN 12/01/19 [History] Acetaminophen Tab [Tylenol] 650 mg PO Q4H PRN 12/01/19 [History] Albuterol Sulfate [Ventolin HFA] 1 - 2 puff INHALATION RT-Q6H PRN 12/01/19 [History] Atorvastatin [Lipitor] 40 mg PO HS 12/01/19 [History] Tiotropium Carefree [Spiriva] 1 cap INHALATION RT-DAILY 12/01/19 [History] ALPRAZolam [Xanax] 0.25 mg PO DAILY@1200 PRN #3 tab 12/05/19 [Rx] ALPRAZolam [Xanax] 0.75 mg PO HS #9 tab 12/05/19 [Rx] Doxycycline Hyclate 100 mg PO BID 3 Days #10 tab 12/05/19 [Rx] predniSONE 10 mg PO DIRECTED #20 tab 12/05/19 [Rx] Follow up Appointment(s)/Referral(s): Brayan ramirez Ascencio, [NON-STAFF] - Jame Bautista MD [Primary Care Provider] - 1-2 days Jose L Gong MD [STAFF PHYSICIAN] - 1 Week Discharge Disposition: TRANSFER TO SNF/ECF
--- NOTE | 2019-12-05 10:24 | P.PN ---
Subjective Progress Note Date: 12/05/19 Principal diagnosis: Right perihilar middle lobe pneumonia Hemoptysis due to pneumonia and airway inflammation Neoplasm however cannot be excluded Hypercapnic hypoxic chronic respiratory failure End-stage lung disease prednisone dependent and oxygen dependent Cardiomyopathy ejection fraction of 15-20% status post AICD, chronic systolic heart failure Left Perry's tendon rupture status post brace Sleep disorder breathing and sleep apnea Stage III chronic kidney disease Hypertension hypertensive cardiovascular disease Coronary artery disease 12/05/2019, patient seen and evaluated examined during the rounds labs reviewed medications reviewed, care plan discussed with the patient at length, no hemoptysis noted today, patient has once history of blood or yesterday, sputum is now thick tenacious greenish in color, patient is doing well with antibiotics, primary services planning for discharge to extended care facility, will recommend follow-up in one week, patient will require a short-term computed tomography scan document resolution of pneumonia and nodule/persistent infiltrate seen then consider doing a PET scan This is a 59-year-old male with extensive history of smoking and nicotine use his stopped smoking about a year ago patient has end-stage lung disease secondary severe COPD emphysema also has a history of chronic asthmatic bronchitis with chronic persistent severe asthma, patient has sleep disorder breathing and sleep apnea morbid obesity he has been hospitalized recently with acute COPD exacerbation along with Achilles tendon rupture patient admitted into the hospital yesterday with acute onset of coughing bright red blood several times throughout the day in the form of clots came into the hospital it was bright red, the amount or hemoptysis however has improved not coughing significantly, patient has been on 4 L oxygen and maintenance dose of prednisone 20 mg daily, computed tomography scan of the chest has been done which showed a nodular density in the right middle lobe/hilar along with air bronchogram and pleural thickening in the fissure highly assistive of pneumonialike process however nodular opacity cannot be excluded, patient currently being treated with Levaquin and Zosyn and IV Solu-Medrol along with continuation of his home medications and breathing treatments, denies any fever or chills denies any chest pain Objective - Vital Signs Vital signs: Vital Signs Temp 98.3 F 12/05/19 08:22 Pulse 61 12/05/19 08:22 Resp 17 12/05/19 08:22 BP 118/66 12/05/19 08:22 Pulse Ox 94 L 12/05/19 08:22 Intake & Output 12/04/19 12/05/19 12/05/19 18:59 06:59 18:59 Intake Total 222 240 Output Total 400 1300 575 Balance -178 -1300 -335 Weight 90 kg Intake: Oral 222 240 Output: Urine 400 1300 575 Other: Voiding Method Toilet Toilet Toilet Urinal Urinal Urinal - Exam General appearance: average body habitus, cooperative, disheveled - EENT Eyes: EOMI, PERRLA ENT: normal oropharynx Ears: bilateral: normal - Neck Neck: normal ROM Carotids: bilateral: upstroke normal - Respiratory Respiratory: bilateral: diminished, wheezing (Fine and expiratory) - Cardiovascular Rhythm: regular Heart sounds: abnormal: S1, S2 - Gastrointestinal General gastrointestinal: normal bowel sounds - Neurologic Neurologic: CNII-XII intact - Musculoskeletal Musculoskeletal: gait normal, generalized weakness, strength equal bilaterally - Psychiatric Psychiatric: A&O x's 3, appropriate affect, intact judgment & insight - Labs CBC & Chem 7: 12/05/19 07:07 12/05/19 07:07 Labs: Abnormal Lab Results - Last 24 Hours (Table) 12/04/19 12/04/19 12/04/19 Range/Units 11:52 16:40 20:36 WBC (3.8-10.6) k/uL RBC (4.30-5.90) m/uL Hgb (13.0-17.5) gm/dL Hct (39.0-53.0) % MCV (80.0-100.0) fL MCHC (31.0-37.0) g/dL Neutrophils # (1.3-7.7) k/uL Lymphocytes # (1.0-4.8) k/uL Chloride (98-107) mmol/L Carbon Dioxide (22-30) mmol/L BUN (9-20) mg/dL Glucose (74-99) mg/dL POC Glucose (mg/dL) 120 H 258 H 186 H (75-99) mg/dL Total Protein (6.3-8.2) g/dL Albumin (3.5-5.0) g/dL 12/05/19 12/05/19 12/05/19 Range/Units 06:12 07:07 07:07 WBC 10.8 H (3.8-10.6) k/uL RBC 2.93 L (4.30-5.90) m/uL Hgb 9.1 L (13.0-17.5) gm/dL Hct 29.7 L (39.0-53.0) % MCV 101.5 H (80.0-100.0) fL MCHC 30.7 L (31.0-37.0) g/dL Neutrophils # 9.4 H (1.3-7.7) k/uL Lymphocytes # 0.6 L (1.0-4.8) k/uL Chloride 89 L (98-107) mmol/L Carbon Dioxide 43 H* (22-30) mmol/L BUN 40 H (9-20) mg/dL Glucose 160 H (74-99) mg/dL POC Glucose (mg/dL) 216 H (75-99) mg/dL Total Protein 5.7 L (6.3-8.2) g/dL Albumin 3.3 L (3.5-5.0) g/dL Assessment and Plan Assessment: Right perihilar middle lobe pneumonia Hemoptysis due to pneumonia and airway inflammation Neoplasm however cannot be excluded Hypercapnic hypoxic chronic respiratory failure End-stage lung disease prednisone dependent and oxygen dependent Cardiomyopathy ejection fraction of 15-20% status post AICD, chronic systolic heart failure Left Garland's tendon rupture status post brace Sleep disorder breathing and sleep apnea Stage III chronic kidney disease Hypertension hypertensive cardiovascular disease Coronary artery disease Plan: Continue oral broad-spectrum antibiotics as outpatient Avoid anticoagulants We'll monitor hemoptysis closely Continue steroids and bronchodilator Continue BiPAP each night and when necessary during the day Patient is high risk for invasive procedure like bronchoscopy or biopsy for induction of respiratory failure requiring ventilator support will continue treat with antibiotics due to her short-term computed tomography scan and PET scan as outpatient Time with Patient: Greater than 30
[2019-12-05] MEDS: OXYMETAZOLINE 0.05% NASL SPRAY 1 SPRAY BOTTLE NASAL SCH (10:35)
[2019-12-05 11:29] LABS: Glucose,Whole Blood 166 mg/dL (75-99)
[2019-12-05] MEDS: ALPRAZolam 0.25 MG TAB PO PRN (12:31)
[2019-12-05 13:16] VITALS: RESP 18
--- NOTE | 2019-12-05 15:58 | P.PN ---
Subjective Progress Note Date: 12/05/19 Patient is still short of breath, but feels better since admission. He has not had recurrent hemoptysis. Cough is also improved. Appetite is normal. No fever/chills/nausea/vomiting Objective - Vital Signs Vital signs: Vital Signs Temp 98.1 F 12/05/19 12:00 Pulse 77 12/05/19 12:00 Resp 18 12/05/19 12:00 BP 137/94 12/05/19 12:00 Pulse Ox 97 12/05/19 12:00 Intake & Output 12/04/19 12/05/19 12/05/19 18:59 06:59 18:59 Intake Total 222 240 Output Total 400 1300 1275 Balance -178 1300 -1034 Weight 90 kg Intake: Oral 222 240 Output: Urine 400 1300 1275 Other: Voiding Method Toilet Toilet Toilet Urinal Urinal Urinal - Constitutional General appearance: Present: no acute distress - EENT Eyes: Present: EOMI ENT: Present: hearing grossly normal, normal oropharynx - Respiratory Respiratory: bilateral: diminished, wheezing (Scattered) - Cardiovascular Rhythm: regular Heart sounds: normal: S1, S2 - Gastrointestinal General gastrointestinal: Present: normal bowel sounds, soft - Integumentary Integumentary: Present: normal - Neurologic Neurologic: Present: CNII-XII intact - Musculoskeletal Musculoskeletal: Present: generalized weakness, strength equal bilaterally - Psychiatric Psychiatric: Present: A&O x's 3, appropriate affect - Labs CBC & Chem 7: 12/05/19 07:07 12/05/19 07:07 Labs: Abnormal Lab Results - Last 24 Hours (Table) 12/04/19 12/04/19 12/05/19 Range/Units 16:40 20:36 06:12 WBC (3.8-10.6) k/uL RBC (4.30-5.90) m/uL Hgb (13.0-17.5) gm/dL Hct (39.0-53.0) % MCV (80.0-100.0) fL MCHC (31.0-37.0) g/dL Neutrophils # (1.3-7.7) k/uL Lymphocytes # (1.0-4.8) k/uL Chloride (98-107) mmol/L Carbon Dioxide (22-30) mmol/L BUN (9-20) mg/dL Glucose (74-99) mg/dL POC Glucose (mg/dL) 258 H 186 H 216 H (75-99) mg/dL Total Protein (6.3-8.2) g/dL Albumin (3.5-5.0) g/dL 12/05/19 12/05/19 12/05/19 Range/Units 07:07 07:07 11:21 WBC 10.8 H (3.8-10.6) k/uL RBC 2.93 L (4.30-5.90) m/uL Hgb 9.1 L (13.0-17.5) gm/dL Hct 29.7 L (39.0-53.0) % MCV 101.5 H (80.0-100.0) fL MCHC 30.7 L (31.0-37.0) g/dL Neutrophils # 9.4 H (1.3-7.7) k/uL Lymphocytes # 0.6 L (1.0-4.8) k/uL Chloride 89 L (98-107) mmol/L Carbon Dioxide 43 H* (22-30) mmol/L BUN 40 H (9-20) mg/dL Glucose 160 H (74-99) mg/dL POC Glucose (mg/dL) 166 H (75-99) mg/dL Total Protein 5.7 L (6.3-8.2) g/dL Albumin 3.3 L (3.5-5.0) g/dL Assessment and Plan (1) Mass of right lung Narrative/Plan: The CT findings, implications, and plan of care 14 were discussed with the patient. He was advised that while the imaging appearance is suspicious for malignancy, consolidative pneumonia is also possible. At this time given the patient's current respiratory status and underlying lung function, going along biopsy or bronchoscopy would carry high risk of progressive respiratory failure. Therefore the decision and we'll need to treat him for possible pneumonia and then follow up as an outpatient with repeat imaging. At that time if suspicious findings are again noted, then a diagnostic procedure may be more active if the patient's respiratory status is better. Patient will follow-up with Dr. Gong in this regard. If on repeat evaluation he is still found to have condition more suspicious for malignancy and/or malignancy is confirmed, he can be referred to us at that time. Current Visit: Yes Status: Acute Code(s): R91.8 - OTHER NONSPECIFIC ABNORMAL FINDING OF LUNG FIELD SNOMED Code(s): 693047745 (2) Hemoptysis Narrative/Plan: This has resolved. Hemoglobin has stayed fairly stable. Treatment plan for pulmonary medicine as above Current Visit: Yes Status: Acute Priority: High Code(s): R04.2 - HEMOPTYSIS SNOMED Code(s): 04332533
[2019-12-05 16:23] VITALS: BP 129/70; PULSE 60; TEMP 97.6
[2019-12-05 16:34] LABS: Glucose,Whole Blood 172 mg/dL (75-99)
== END 2019-12-05 18:34 | DRG 190 ==
LOC: EC 20:37 → OBSVTOIN 23:21 → 3SCARD 23:21
PROVIDERS: ADMIT Family Medicine; ATTEND Family Medicine
DX: J43.9 Emphysema, unspecified (principal); J18.9 Pneumonia, unspecified organism; I50.22 Chronic systolic (congestive) heart failure; J96.11 Chronic respiratory failure with hypoxia; I13.0 Hypertensive heart and chronic kidney disease with heart failure and stage 1 through stage 4 chronic kidney disease, or unspecified chronic kidney disease; R04.2 Hemoptysis; J96.12 Chronic respiratory failure with hypercapnia; S86.012A Strain of left Achilles tendon, initial encounter; T38.0X5A Adverse effect of glucocorticoids and synthetic analogues, initial encounter; J45.909 Unspecified asthma, uncomplicated; E78.5 Hyperlipidemia, unspecified; R79.89 Other specified abnormal findings of blood chemistry; R91.8 Other nonspecific abnormal finding of lung field; G89.4 Chronic pain syndrome; G47.33 Obstructive sleep apnea (adult) (pediatric); F32.9 Major depressive disorder, single episode, unspecified; I25.10 Atherosclerotic heart disease of native coronary artery without angina pectoris; I25.5 Ischemic cardiomyopathy; N18.3 Chronic kidney disease, stage 3 (moderate); Z20.828 Contact with and (suspected) exposure to other viral communicable diseases; Z79.891 Long term (current) use of opiate analgesic; Z79.899 Other long term (current) drug therapy; Z79.82 Long term (current) use of aspirin; I25.2 Old myocardial infarction; Z95.810 Presence of automatic (implantable) cardiac defibrillator; Z99.81 Dependence on supplemental oxygen; Z86.14 Personal history of Methicillin resistant Staphylococcus aureus infection; Z95.1 Presence of aortocoronary bypass graft; Z95.5 Presence of coronary angioplasty implant and graft; Z98.890 Other specified postprocedural states; Z87.891 Personal history of nicotine dependence; Z80.0 Family history of malignant neoplasm of digestive organs; Z80.6 Family history of leukemia; Z79.52 Long term (current) use of systemic steroids
CPT/HCPCS: 36415; 71260; 80053; 83735; 84484; 85025; 85610; 85730; 93005; 93306; 94640; 94760; 96365; 96366; 96367; 96375; 96376; 99285

== ENCOUNTER 2020-01-17 08:05 | Inpatient (IN) | payer OTHER ==
[2020-01-17] MEDS ORDERED: MORPHINE SULFATE 4 MG/ML SYRINGE IV STA (08:07)
[2020-01-17] MEDS ORDERED: DEXTROSE 5% IN WATER 100 ML with AMIODARONE 150 MG IV ONE (08:08)
[2020-01-17] MEDS ORDERED: AMIODARONE 360 MG in DEXTROSE 5% IN WATER 200 ML IV ONE ×2 (08:08)
[2020-01-17] MEDS ORDERED: MIDAZOLAM 1 MG/ML 5 ML VIAL IV STA ×2 (08:08→08:24)
[2020-01-17] MEDS ORDERED: LIDOCAINE 2% INJ 20 MG/ML (20 ML MDV) IV STA (08:26)
[2020-01-17] MEDS: MAGNESIUM SULFATE-D5W PMX 1 GM in DEXTROSE/WATER 1 100ML.BAG IVPB SCH ×4 (08:30→19:00)
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
[2020-01-17 08:38] LABS: Basophils # (A) 0.1 k/uL (0-0.2); Basophils % (A) 1 %; Eosinophils # (A) 0.5 k/uL (0-0.7); Eosinophils % (A) 3 %; HCT 30.5 % (39.0-53.0); HGB 9.5 gm/dL (13.0-17.5); Hypochromasia Moderate; Lymphocytes # (A) 4.1 k/uL (1.0-4.8); Lymphocytes % (A) 30 %; MCHC 31.1 g/dL (31.0-37.0); Mean Platelet Volume 7.7; Monocytes # (A) 1.2 k/uL (0-1.0); Monocytes % (A) 9 %; Neutrophils # (A) 7.3 k/uL (1.3-7.7); Neutrophils % (A) 53 %; Platelet Count 336 k/uL (150-450); RBC 3.17 m/uL (4.30-5.90); RDW 15.7 % (11.5-15.5); WBC 13.8 k/uL (3.8-10.6)
[2020-01-17 08:42] LABS: MCV 96.5 fL (80.0-100.0)
[2020-01-17 08:46] LABS: Albumin 3.7 g/dL (3.5-5.0); Calcium 9.4 mg/dL (8.4-10.2); INR 1.1 (<1.2); Magnesium 1.6 mg/dL (1.6-2.3); Partial Thromboplastin Time 22.8 sec (22.0-30.0); Potassium 3.6 mmol/L (3.5-5.1); Prothrombin Time 10.9 sec (9.0-12.0); Total Bilirubin 0.5 mg/dL (0.2-1.3); Total Protein 6.4 g/dL (6.3-8.2)
--- NOTE | 2020-01-17 09:21 | XR ---
EXAMINATION TYPE: XR chest 1V portable DATE OF EXAM: 01/17/2020 COMPARISON: CT chest December 01, 2019. 2 view chest x-ray November 13, 2019. HISTORY: Chest pain. TECHNIQUE: Single AP portable frontal upright view of the chest is obtained. FINDINGS: Background chronic emphysematous and parenchymal change with elevated right hemidiaphragm i s redemonstrated There is no suspicious new focal air space opacity, pleural effusion, or pneumothora x seen. The cardiac silhouette size remains enlarged with dual lead pacemaker/AICD and overlying trey rnal wires along with mediastinal clips. The osseous structures are intact. IMPRESSION: Chronic changes and cardiomegaly without new suspicious acute pulmonary process.
[2020-01-17] MEDS ORDERED: NALOXONE 0.4 MG/ML 1 ML VIAL IV PRN (09:28)
[2020-01-17] MEDS ORDERED: IPRATROPIUM-ALBUTEROL 3 ML NEB INHALATION PRN (10:37)
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
[2020-01-17] MEDS ORDERED: OXYMETAZOLINE 0.05% NASL SPRAY 1 SPRAY BOTTLE EA NOSTRIL PRN (11:39)
[2020-01-17] MEDS ORDERED: NITROGLYCERIN SL TABS 0.4 MG TAB SUBLINGUAL PRN (11:39)
[2020-01-17] MEDS ORDERED: ACETAMINOPHEN TAB 325 MG TAB PO PRN (11:39)
[2020-01-17 11:40] LABS: Glucose,Whole Blood 161 mg/dL (75-99)
[2020-01-17] MEDS: FUROSEMIDE 40 MG TAB PO SCH ×2 (12:03→17:58)
[2020-01-17] MEDS: MIDODRINE 5 MG TAB PO SCH ×2 (12:03→17:59)
[2020-01-17] MEDS: ALPRAZolam 0.25 MG TAB PO SCH ×2 (12:03→20:32)
[2020-01-17] MEDS: HYDROmorphone 0.5 MG/0.5 ML SYRINGE IVP PRN ×6 (12:04→22:39)
[2020-01-17] MEDS: IPRATROPIUM-ALBUTEROL 3 ML NEB INHALATION SCH ×3 (12:27→19:28)
[2020-01-17] MEDS: AMIODARONE 300 MG in DEXTROSE 5% IN WATER 250 ML IV SCH ×4 (14:39→22:41)
[2020-01-17] MEDS: METHADONE 5 MG TAB PO SCH (17:58)
[2020-01-17] MEDS: METHADONE 10 MG TAB PO SCH (17:59)
[2020-01-17] MEDS: POTASSIUM CHLORIDE 20 MEQ in WATER FOR INJECTION 1 100ML.BAG IVPB SCH ×2 (18:41→20:29)
[2020-01-17] MEDS ORDERED: LIDOCAINE 2% SYG (PF) 100 MG/5 ML IV ONE (18:44)
[2020-01-17] MEDS: LORazepam 2 MG/ML INJ IV PRN (18:46)
[2020-01-17] MEDS ORDERED: Magnesium Replacement Protocol 1 EACH MISC MISCELLANE PRN (18:50)
[2020-01-17] MEDS: LIDOCAINE-D5W PMX 2G/250ML 2,000 MG in DEXTROSE/WATER 1 250ML.BAG IV SCH (18:53)
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
[2020-01-17] MEDS: SYMBICORT 80-4.5 MCG INHALER INHALATION SCH (19:28)
[2020-01-17] MEDS ORDERED: BUDESONIDE 1 MG/2 ML NEBU INHALATION SCH (20:00)
[2020-01-17] MEDS: LORATADINE 10 MG TAB PO SCH (20:32)
[2020-01-17] MEDS: guaiFENesin 600 MG TABLET.ER PO SCH (20:32)
[2020-01-17] MEDS: EZETIMIBE 10 MG TAB PO SCH (20:32)
[2020-01-17] MEDS: MONTELUKAST 10 MG TAB PO SCH (20:32)
[2020-01-17] MEDS: ATORVASTATIN 40 MG TAB PO SCH (20:32)
[2020-01-17] MEDS ORDERED: carvediloL 6.25 MG TAB PO SCH (21:00)
[2020-01-17] MEDS ORDERED: carvediloL 3.125 MG TAB PO SCH (21:00)
[2020-01-18] MEDS: LORazepam 2 MG/ML INJ IV PRN ×5 (00:15→23:12)
[2020-01-18 00:42] LABS: Magnesium 2.1 mg/dL (1.6-2.3); Potassium 3.9 mmol/L (3.5-5.1)
[2020-01-18] MEDS ORDERED: Potassium Replacement Protocol 1 EACH MISC MISCELLANE PRN (00:51)
[2020-01-18] MEDS: POTASSIUM CHLORIDE 10 MEQ in WATER FOR INJECTION 1 100ML.BAG IVPB SCH ×4 (00:57→05:12)
[2020-01-18] MEDS: HYDROmorphone 0.5 MG/0.5 ML SYRINGE IVP PRN ×10 (03:12→22:55)
[2020-01-18 03:39] LABS: Basophils % (A) 1 %; Eosinophils # (A) 0.3 k/uL (0-0.7); Eosinophils % (A) 3 %; HCT 29.3 % (39.0-53.0); Hypochromasia Moderate; Lymphocytes # (A) 1.7 k/uL (1.0-4.8); Lymphocytes % (A) 19 %; MCH 29.6 pg (25.0-35.0); MCHC 30.6 g/dL (31.0-37.0); MCV 96.6 fL (80.0-100.0); Mean Platelet Volume 7.1; Monocytes # (A) 0.7 k/uL (0-1.0); Monocytes % (A) 8 %; Neutrophils # (A) 5.9 k/uL (1.3-7.7); Neutrophils % (A) 67 %; Platelet Count 286 k/uL (150-450); RBC 3.03 m/uL (4.30-5.90); RDW 15.7 % (11.5-15.5); WBC 8.9 k/uL (3.8-10.6)
[2020-01-18 03:57] LABS: Calcium 9.2 mg/dL (8.4-10.2); Potassium 4.2 mmol/L (3.5-5.1)
[2020-01-18] MEDS: FUROSEMIDE 40 MG TAB PO SCH ×3 (05:03→18:03)
[2020-01-18] MEDS: METHADONE 10 MG TAB PO SCH ×2 (05:03→18:04)
[2020-01-18] MEDS: AMIODARONE 300 MG in DEXTROSE 5% IN WATER 250 ML IV SCH ×2 (05:42)
[2020-01-18] MEDS: IPRATROPIUM-ALBUTEROL 3 ML NEB INHALATION SCH ×4 (07:16→19:16)
[2020-01-18] MEDS: SYMBICORT 80-4.5 MCG INHALER INHALATION SCH ×2 (07:16→19:16)
[2020-01-18 09:10] LABS: Magnesium 1.8 mg/dL (1.6-2.3); Potassium 4.1 mmol/L (3.5-5.1)
[2020-01-18] MEDS ORDERED: METHADONE 5 MG TAB PO STA (09:30)
[2020-01-18] MEDS: NICOTINE 21MG/24HR PATCH TRANSDERM SCH (09:47)
[2020-01-18] MEDS: MULTIVITAMINS, THERA 1 EACH TAB PO SCH (09:47)
[2020-01-18] MEDS: predniSONE 20 MG TAB PO SCH (09:47)
[2020-01-18] MEDS: guaiFENesin 600 MG TABLET.ER PO SCH ×2 (09:47→20:32)
[2020-01-18] MEDS: ASPIRIN 81 MG PO SCH (09:47)
[2020-01-18] MEDS: MIDODRINE 5 MG TAB PO SCH ×3 (09:47→18:03)
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
--- NOTE | 2020-01-18 09:54 | P.PN ---
Subjective Progress Note Date: 01/18/20 Principal diagnosis: Intermittent ventricular tachycardia Ischemic cardiomyopathy with ejection fraction of 2024% baseline Electrolyte imbalance with relative hypokalemia and relative hypomagnesemia 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 without exacerbation Chronic kidney disease Coronary artery disease status post CABG Sleep disorder breathing and sleep apnea Dyslipidemia 01/18/2020, patient seen eval examined during the rounds labs reviewed medica tions reviewed care plan discussed, patient is more awake on 14 L high flow oxygen, off of nonrebreather mask, breathing comfortably, denies any chest pain, no more V. tach has been noted overnight, patient remains nothing by mouth we'll start clear liquid diet and oral medications, and monitor patient closely in ICU, patient remains on potassium replacement and magnesium replacement protocol along with infusion of lidocaine and amiodarone drip hemodynamic status stable labs reviewed medications reviewed care plan discussed with staff at length This patient is well-known to be has a history of multiple medical problems and issues came into hospital with AICD firing multiple times, patient has been found to have low magnesium and potassium has been on multiple antiarrhythmic agents last V. tach/V. fib happened at around 8:15 since then he is stable he remains awake however his oxygen from baseline of 6 went up to a nonrebreather mask with 100% oxygen His past medical history of coronary artery disease and status post coronary artery bypass grafting and previous angioplasty and stenting so that, heart catheterization in September 2018 revealed severe stenosis of the LAD with occluded first obtuse marginal branch, chronically occluded mid right coronary artery, mild to moderate disease of the proximal left circumflex, patent JACKSON to LAD, patent saphenous vein graft to the diagonal branch and to the right PDA, severely impaired left ventricular systolic function, ischemic cardiomyopathy EF of 20-25% status post AICD, chronic systolic heart failure as well as chronic obstructive pulmonary disease, chronic hypoxic respiratory failure on home O2, hypertension, hyperlipidemia, chronic pain syndrome on methadone, tobacco use and dependencequit September 2018, obstructive sleep apnea on CPAP. Patient was last hospitalized in December of this year for acute exacerbation of COPD and hemo ptysis secondary to lung mass. Patient was discharged to [facility] and is now long-term resident. Patient states he has not followed up with Dr. Gong since his last hospitalization. Patient states that he was getting up to go to the bathroom and his AICD went off the patient does not recall the whole incident. He ended up falling to the floor and has bruising to the facial areas. He subsequently has had 13 defibrillations by AICD before he arrived here with multiple following while in the emergency center been subsequently in ICU patient eventually required amiodarone drip lidocaine drip and a protocol established to keep magnesium up an more than 2 and potassium up an more than 4.5. Objective - Vital Signs Vital signs: Vital Signs Temp 98.3 F 01/18/20 04:00 Pulse 75 01/18/20 07:00 Resp 16 01/18/20 07:00 BP 131/76 01/18/20 07:00 Pulse Ox 97 01/18/20 07:00 Intake & Output 01/17/20 01/18/20 01/18/20 18:59 06:59 18:59 Intake Total 160 560.833 10 Output Total 1815 1445 60 Balance -1655 -884.167 -50 Weight 93.894 kg 94.8 kg Intake: IV 110 10 0.9 NS 110 10 Intake, IV Titration 450.833 Amount Amiodarone 300 mg In 450.833 Dextrose 5% in Water 250 ml @ 0.5 MG/MIN 25 mls/hr IV .Q10H [facility] Rx#: [id number] Oral 160 Output: Urine 1815 1445 60 Uretheral ([place]) 400 Other: Voiding Method Indwelling Catheter Indwelling Catheter - Exam Vitals: Afebrile temperature 90.8, blood pressure is 110 to 1:30/60-70, heart rate varia ble now A. fib with controlled rate 60-70, respiratory rate 20-24 - Constitutional General appearance: average body habitus, cooperative, disheveled - EENT Eyes: EOMI Ears: bilateral: normal - Neck Neck: normal ROM Carotids: bilateral: upstroke normal Thyroid: bilateral: normal size - Respiratory Respiratory: bilateral: diminished - Cardiovascular Rhythm: regular Heart sounds: normal: S1, S2 - Neurologic Neurologic: CNII-XII intact - Musculoskeletal Musculoskeletal: generalized weakness, strength equal bilaterally - Psychiatric Psychiatric: A&O x's 3, appropriate affect - Labs CBC & Chem 7: 01/18/20 03:24 01/18/20 08:16 Labs: Abnormal Lab Results - Last 24 Hours (Table) 01/17/20 01/18/20 01/18/20 Range/Units 11:36 03:24 03:24 RBC 3.03 L (4.30-5.90) m/uL Hgb 9.0 L (13.0-17.5) gm/dL Hct 29.3 L (39.0-53.0) % MCHC 30.6 L (31.0-37.0) g/dL RDW 15.7 H (11.5-15.5) % Sodium 136 L (137-145) mmol/L Chloride 94 L (98-107) mmol/L Carbon Dioxide 34 H (22-30) mmol/L POC Glucose (mg/dL) 161 H (75-99) mg/dL Assessment and Plan Assessment: Intermittent ventricular tachycardia Ischemic cardiomyopathy with ejection fraction of 2024% baseline Electrolyte imbalance with relative hypokalemia and relative hypomagnesemia 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 without exacerbation Chronic kidney disease Coronary artery disease status post CABG Sleep disorder breathing and sleep apnea Dyslipidemia Plan: Will restart by mouth medications Monitor and observe on clear liquid diet for now Rate and rhythm remains stabilized with magnesium and potassium protocol and along with amiodarone and lidocaine drip Continue to support with supplemental oxygen and bronchodilator along with maintenance dose of prednisone Titrated oxygen down as tolerated Keep in ICU for now Monitor clinical course closely further recommendations pending Time with Patient: Greater than 30
[2020-01-18] MEDS ORDERED: POTASSIUM CHLORIDE ER 20 MEQ TAB.ER PO STA (09:58)
[2020-01-18] MEDS ORDERED: MAGNESIUM SULFATE-D5W PMX 1 GM in DEXTROSE/WATER 1 100ML.BAG IVPB ONE (10:03)
[2020-01-18] MEDS ORDERED: METHADONE 10 MG TAB PO STA (10:13)
--- NOTE | 2020-01-18 10:20 | PN ---
PROGRESS NOTE Mr. Goodman is a 59-year-old male with a history of severe ischemic cardiomyopathy, history of chronic obstructive lung disease, history of ICD implantation, status post coronary artery bypass grafting who presented with recurrent discharge from his defibrillator. He had further episode of discharge from the defibrillator yesterday afternoon. He was started on IV lidocaine and has been stable since that time. He continues to be on IV amiodarone and IV lidocaine. He has chest soreness related to the shocks. He has a known history of lung mass malignant. He had a prior history of chronic obstructive lung disease, which he stopped in 2019. Hemodynamically, he has been stable without any episode of hypotension. He continues to be on the IV amiodarone and IV lidocaine. He is on aspirin, Lipitor 40 mg daily, Coreg 6.5 mg twice a day, Zetia 10 mg daily, Lasix 40 mg 3 times a day and lisinopril 2.5 mg daily. PHYSICAL EXAMINATION: Blood pressure running in the 130s with a heart rate in the 70s. Lungs decreased air exchange, no wheezes. Heart is regular rate and rhythm, S1-S2, no S3 with systolic murmur. ABDOMEN: Soft, obese, nontender. Extremities no significant edema. LAB DATA: Revealed a hemoglobin of 9, BUN and creatinine of 18 and 1.09, improved since admission. Potassium 4.2. His magnesium is 2. IMPRESSION: 1. Recurrent ventricular tachycardia with ventricular tachycardia storm. 2. Severe ischemic cardiomyopathy. 3. History of chronic obstructive lung disease. 4. History of lung mass. 5. Acute kidney injury, improved. 6. History of hyperlipidemia. RECOMMENDATIONS: I will increase the dose of his Coreg. I will continue on the lidocaine and amiodarone until tomorrow. He will be evaluated by Dr. Green to further help in his management, probable one of the options switch him to mexiletine orally. Unfortunately, the prognosis is quite poor. The patient has expressed the wish to be a DNR. MMODL / IJN: [id number] /
--- NOTE | 2020-01-18 10:21 | P.PN ---
Subjective Progress Note Date: 01/18/20 HISTORY OF PRESENT ILLNESS This is a 59-year-old male patient of Drs. Bautista, Jing and Farideh with past medical history of coronary artery disease and status post coronary artery bypass grafting and previous angioplasty and stenting so that, heart catheterization in September 2018 revealed severe stenosis of the LAD with occluded first obtuse marginal branch, chronically occluded mid right coronary artery, mild to moderate disease of the proximal left circumflex, patent JACKSON to LAD, patent saphenous vein graft to the diagonal branch and to the right PDA, severely impaired left ventricular systolic function, ischemic cardiomyopathy EF of 20-25% status post AICD, chronic systolic heart failure as well as chronic obstructive pulmonary disease, chronic hypoxic respiratory failure on home O2, hypertension, hyperlipidemia, chronic pain syndrome on methadone, tobacco use and dependencequit September 2018, obstructive sleep apnea on CPAP. Patient was last hospitalized in December of this year for acute exacerbation of COPD and hemoptysis secondary to lung mass. Patient was discharged to [facility] and is now long-term resident. Patient states he has not followed up with Dr. Gong since his last hospitalization. Patient states that he was getting up to go to the bathroom and his AICD went off the patient does not recall the whole incident. He ended up falling to the floor and has bruising to the facial areas. He subsequently has had 13 defibrillations by AICD before he arrived here with multiple following while in the emergency center. EKG was a ventricular paced r hythm at 97. Patient has been awake and alert between episodes. He was found to be afebrile, heart rate 98, blood pressure 148/94, pulse ox 96%. W BC 13.8, hemoglobin 9.5, platelet count 336. Sodium 138, potassium 3.6, chloride 93, CO2 34, BUN 23 and creatinine 1.51, blood sugar 174. Patient to be admitted into the intensive care unit and consult requested with Dr. Gong, cardiology and oncology. 01/17: Patient had another long episode of V. tach V. fib with multiple defibrillations done by his AICD. He is currently having electrolytes checked every 4 hours and potassium and magnesium have been replaced per protocol. He was started on a lidocaine drip. Patient had some difficulty with swallowing after yesterday's episode and he was placed nothing by mouth but now has passed a bedside swallow test will start oral medications. Urine output has been adequate. Patient has been afebrile, heart rate 75, blood pressure 131/76, pulse ox 97% on high flow nasal cannula and 13 L. Lab work this morning reveals WBC 8.9, hemoglobin 9.0, platelet count 286. Sodium 136, potassium 4.2, chlor tammy 94, CO2 34, BUN 18 and creatinine 1.09. Magnesium 2.0. Patient had friends come in to be with him yesterday. He does not have any close family. Dr. Mcdowell discussed in detail patient's current condition and prognosis. Patient is a no CODE STATUS as was discussed yesterday. Patient states that he does not want to suffer if symptoms continue to go on. Patient is followed closely by radiology and pulmonary medicine. REVIEW OF SYSTEMS Constitutional: No fever, no chills, no night sweats. No weight change. Reports weakness, Reports fatigue. No daytime sleepiness. EENT: No headache. No blurred vision or double vision, no loss of vision. No loss of Hearing, no ringing in the ears, no dizziness. No nasal drainage or congestion. No epistaxis. No sore throat. Lungs: No shortness of breath, cough, no sputum production. No wheezing. Cardiovascular: No chest pain, no lower extremity edema. No palpitations. No paroxysmal nocturnal dyspnea. No orthopnea. No lightheadedness or dizziness. No syncopal episodes. Abdominal: No abdominal pain. No nausea, vomiting. No diarrhea. No constipation. No bloody or tarry stools. No loss of appetite. Genitourinary: No dysuria, increased frequency, urgency. No urinary retention. Musculoskeletal: No myalgias. No muscle weakness, no gait dysfunction, no frequent falls. Reports back pain. No neck pain. Integumentary: No wounds, no lesions. No rash or pruritus. No unusual bruising. No change in hair or nails. Neurologic: No aphasia. No facial droop. No change in mentation. No head injury. No headache. No paralysis. No paresthesia. Psychiatric: No depression. No anxiety. No mood swings. Endocrine: No abnormal blood sugars. No weight change. No excessive sweating or thirst. No cold intolerance. PHYSICAL EXAMINATION Gen: This is 59-year-old male seen in ICU bed. No respiratory distress noted. Patient appears fatigued. HEENT: Head is atraumatic, normocephalic. Pupils equal, round. Sclerae is anicteric. NECK: Supple. No JVD. No lymphadenopathy. No thyromegaly. LUNGS: Clear to auscultation. No wheezes or rhonchi. No intercostal retractions. HEART: Regular rate and rhythm. Systolic ejection murmur 2/6 at the left sternal border, AICD in the left upper precordium. ABDOMEN: Soft. Bowel sounds are present. No masses. No tenderness. EXTREMITIES: No pedal edema. No calf tenderness. NEUROLOGICAL: Patient is awake, alert and oriented x3. Cranial nerves 2 through 12 are grossly intact. ASSESSMENT AND PLAN 1. Ventricular tachycardia, ventricular fibrillation, multiple AICD defibrillations. Patient is currently on lidocaine drip, magnesium and potassium replacements. Patient to be admitted into the intensive care unit, c onsults with Dr. Gong his washroom attendant and cardiology. 2. Chronic hypoxemic respiratory failure with COPD not in exacerbation. Consult with Dr. Gong. Continue DuoNeb treatments 4 times daily and as needed, Pulmicort 1 mg twice daily, Mucinex twice daily, prednisone 20 mg daily. 3. Chronic systolic heart failure. Continue Lasix 40 mg oral 3 times daily, Coreg, lisinopril. 4. Chronic kidney disease stage 3. 5. Obstructive sleep apnea. Patient has done well with BiPAP. 6. Coronary artery disease status post coronary artery bypass graft with PCI and ischemic cardiomyopathy post AICD. Continue Coreg 3.125 mg orally twice every day, aspirin 81 mg daily, Lipitor 40 mg daily. 7. COPD and moderate persistent asthma. Continue DuoNeb 3 mg nebulization, inhaled steroids, Singulair 10 mg at bedtime, zyrtec [address] mg [address] Consult with [address] Gong. 8. Hypertension and hypertensive cardiovascular disease. Continue patient on carvedilol, lisinopril 2.5 mg daily. 9. Hyperlipidemia. Continue Lipitor 40 mg orally once every day and Zetia 10 mg daily. 10. History of tobacco use and dependence. Patient quit 2018. 11. Chronic pain syndrome. Continue patient on methadone, continue home dose. 12. History of MSSA bacteremia. 13. Lung mass, cancer. Consult with oncology. 14. DVT prophylaxis. Heparin subcu. 15. GI prophylaxis. Pepcid 20 mg orally once every day. CODE STATUS: No code Prognosis guarded Discharge plan: Return to [facility] next week. Social work consult. Impression and plan of care have been directed as dictated by the signing physician. Isabelle Andersen nurse practitioner acting as scribe for signing physician. Objective - Vital Signs Vital signs: Vital Signs Temp 98.3 F 01/18/20 04:00 Pulse 75 01/18/20 07:00 Resp 16 01/18/20 07:00 BP 131/76 01/18/20 07:00 Pulse Ox 97 01/18/20 07:00 Intake & Output 01/17/20 01/18/20 01/18/20 18:59 06:59 18:59 Intake Total 160 560.833 10 Output Total 1815 1445 60 Balance -1655 -884.167 -50 Weight 93.894 kg 94.8 kg Intake: IV 110 10 0.9 NS 110 10 Intake, IV Titration 450.833 Amount Amiodarone 300 mg In 450.833 Dextrose 5% in Water 250 ml @ 0.5 MG/MIN 25 mls/hr IV .Q10H [facility] Rx#: [id number] Oral 160 Output: Urine 1815 1445 60 Uretheral ([place]) 400 Other: Voiding Method Indwelling Catheter Indwelling Catheter - Labs CBC & Chem 7: 01/18/20 03:24 01/18/20 08:16 Labs: Abnormal Lab Results - Last 24 Hours (Table) 01/17/20 01/17/20 01/17/20 Range/Units 08:25 08:25 11:36 RBC (4.30-5.90) m/uL Hgb (13.0-17.5) gm/dL Hct (39.0-53.0) % MCHC (31.0-37.0) g/dL RDW (11.5-15.5) % Sodium (137-145) mmol/L Chloride 93 L (98-107) mmol/L Carbon Dioxide 34 H (22-30) mmol/L BUN 23 H (9-20) mg/dL Creatinine 1.51 H (0.66-1.25) mg/dL Glucose 174 H (74-99) mg/dL POC Glucose (mg/dL) 161 H (75-99) mg/dL Troponin I 0.186 H* (0.000-0.034) ng/mL 01/18/20 01/18/20 Range/Units 03:24 03:24 RBC 3.03 L (4.30-5.90) m/uL Hgb 9.0 L (13.0-17.5) gm/dL Hct 29.3 L (39.0-53.0) % MCHC 30.6 L (31.0-37.0) g/dL RDW 15.7 H (11.5-15.5) % Sodium 136 L (137-145) mmol/L Chloride 94 L (98-107) mmol/L Carbon Dioxide 34 H (22-30) mmol/L BUN (9-20) mg/dL Creatinine (0.66-1.25) mg/dL Glucose (74-99) mg/dL POC Glucose (mg/dL) (75-99) mg/dL Troponin I (0.000-0.034) ng/mL
[2020-01-18] MEDS: MAGNESIUM SULFATE-D5W PMX 1 GM in DEXTROSE/WATER 1 100ML.BAG IVPB SCH ×2 (10:41→11:41)
[2020-01-18] MEDS: ALPRAZolam 0.25 MG TAB PO SCH ×2 (12:02→20:32)
[2020-01-18 14:26] LABS: Magnesium 2.5 mg/dL (1.6-2.3); Potassium 4.6 mmol/L (3.5-5.1)
[2020-01-18] MEDS: METHADONE 5 MG TAB PO SCH (18:02)
[2020-01-18] MEDS: LIDOCAINE-D5W PMX 2G/250ML 2,000 MG in DEXTROSE/WATER 1 250ML.BAG IV SCH (18:06)
[2020-01-18 18:23] LABS: Magnesium 2.2 mg/dL (1.6-2.3); Potassium 4.5 mmol/L (3.5-5.1)
[2020-01-18] MEDS: ATORVASTATIN 40 MG TAB PO SCH (20:32)
[2020-01-18] MEDS: MONTELUKAST 10 MG TAB PO SCH (20:32)
[2020-01-18] MEDS: carvediloL 12.5 MG TAB PO SCH (20:32)
[2020-01-18] MEDS: LORATADINE 10 MG TAB PO SCH (20:33)
[2020-01-18] MEDS: EZETIMIBE 10 MG TAB PO SCH (20:37)
[2020-01-19 00:13] LABS: Magnesium 2.1 mg/dL (1.6-2.3); Potassium 4.1 mmol/L (3.5-5.1)
[2020-01-19] MEDS: POTASSIUM CHLORIDE 10 MEQ in WATER FOR INJECTION 1 100ML.BAG IVPB SCH ×2 (00:41→03:31)
[2020-01-19] MEDS: HYDROmorphone 0.5 MG/0.5 ML SYRINGE IVP PRN ×5 (01:39→20:30)
[2020-01-19] MEDS: LORazepam 2 MG/ML INJ IV PRN (03:31)
[2020-01-19 04:16] LABS: Basophils # (A) 0.1 k/uL (0-0.2); Basophils % (A) 1 %; Eosinophils # (A) 0.2 k/uL (0-0.7); Eosinophils % (A) 2 %; HCT 27.9 % (39.0-53.0); Hypochromasia Moderate; Lymphocytes # (A) 1.7 k/uL (1.0-4.8); Lymphocytes % (A) 17 %; MCH 31.2 pg (25.0-35.0); MCHC 32.3 g/dL (31.0-37.0); MCV 96.7 fL (80.0-100.0); Mean Platelet Volume 7.5; Monocytes # (A) 0.9 k/uL (0-1.0); Monocytes % (A) 9 %; Neutrophils # (A) 6.9 k/uL (1.3-7.7); Neutrophils % (A) 69 %; Platelet Count 278 k/uL (150-450); RBC 2.89 m/uL (4.30-5.90); RDW 15.5 % (11.5-15.5)
[2020-01-19 04:31] LABS: Albumin 3.6 g/dL (3.5-5.0); Calcium 9.1 mg/dL (8.4-10.2); Potassium 4.5 mmol/L (3.5-5.1); Total Bilirubin 0.4 mg/dL (0.2-1.3); Total Protein 6.3 g/dL (6.3-8.2)
[2020-01-19] MEDS: METHADONE 10 MG TAB PO SCH ×2 (06:03→17:15)
[2020-01-19] MEDS: FUROSEMIDE 40 MG TAB PO SCH ×3 (06:03→17:14)
[2020-01-19] MEDS: IPRATROPIUM-ALBUTEROL 3 ML NEB INHALATION SCH ×4 (07:58→19:29)
[2020-01-19] MEDS: SYMBICORT 80-4.5 MCG INHALER INHALATION SCH ×2 (07:58→19:25)
[2020-01-19] MEDS: NICOTINE 21MG/24HR PATCH TRANSDERM SCH (08:08)
[2020-01-19] MEDS: predniSONE 20 MG TAB PO SCH (08:08)
[2020-01-19] MEDS: guaiFENesin 600 MG TABLET.ER PO SCH ×2 (08:08→21:41)
[2020-01-19] MEDS: carvediloL 12.5 MG TAB PO SCH ×2 (08:08→22:34)
[2020-01-19] MEDS: MIDODRINE 5 MG TAB PO SCH ×3 (08:08→17:14)
[2020-01-19] MEDS: ASPIRIN 81 MG PO SCH (08:08)
[2020-01-19] MEDS: MULTIVITAMINS, THERA 1 EACH TAB PO SCH (08:09)
--- NOTE | 2020-01-19 08:20 | XR ---
EXAMINATION TYPE: XR chest 1V portable DATE OF EXAM: 01/19/2020 CLINICAL HISTORY: COPD TECHNIQUE: Upright portable view of the chest obtained COMPARISON: Chest radiograph 01/17/2020 FINDINGS: Sternotomy wires. Left-sided AICD. Elevation of the right hemidiaphragm and right basilar atelectasis redemonstrated. Cardiomegaly. Mediastinal silhouette unchanged. Chronic interstitial coar sening. No focal air space opacity, pleural effusion, or pneumothorax seen. The osseous structures ar e intact. IMPRESSION: Unchanged cardiomegaly and chronic interstitial coarsening.
[2020-01-19 08:26] LABS: Magnesium 1.9 mg/dL (1.6-2.3); Potassium 4.3 mmol/L (3.5-5.1)
[2020-01-19] MEDS ORDERED: Magnesium Replacement Protocol 1 EACH MISC MISCELLANE PRN (09:48)
--- NOTE | 2020-01-19 10:40 | P.PN ---
Subjective Progress Note Date: 01/19/20 Principal diagnosis: Ventricular tachycardia HISTORY OF PRESENTING ILLNESS This is a pleasant 59-year-old male past medical history significant for coronary artery disease status post CABG, severe ischemic cardiomyopathy status post biventricular AICD, hyperlipidemia, chronic kidney disease and a lung mass who presented on 01/16 secondary to multiple AICD discharges. He does have a history of heart catheterization from 2019 which showed patent JACKSON to LAD patent SVG to diagonal and to the right PDA with a severely impaired left ventricular systolic function. He was at his [facility] and experienced multiple shocks, per patient around 15-30. He admits he was just waking up before the shocks began and denies any preceding chest pain, shortness of breath or anginal type symptoms. Patient denies any similar episodes in past. The patient has elected to be a no code however is okay with medications. He was placed on IV amiodarone however had breakthrough ventricular tachycardia and therefore was also placed on lidocaine. He has had no recurrence since that time. 01/19/20 Patient states he feels well today. He is tolerating diet. Denies any chest pain or pressure. His had no recurrence of ventricular tachycardia since been placed on the lidocaine as well as the amiodarone. DIAGNOSTICS Chest xray cardiomegaly and chronic interstitial changes, unchanged. Laboratory reviewed, anemia with hemoglobin 9.0, creatinine 1.28, potassium 4.5. Current cardiac medications include aspirin, Lipitor 40 mg daily, Coreg 12.5 mg twice a day, Sunday at 10 mg daily, Lasix 40 mg 3 times a day, lidocaine drip, lisinopril 2.5 mg daily, Midrin 10 mg 3 times a day. REVIEW OF SYSTEMS At the time of my exam: CONSTITUTIONAL: Denies fever or chills. CARDIOVASCULAR: +chest pain still sore from being shocked, denies shortness of breath, orthopnea, PND or palpitations. RESPIRATORY: Denies cough. GASTROINTESTINAL: Denies abdominal pain, diarrhea, constipation, nausea or vomiting. MUSCULOSKELETAL: Denies myalgias. NEUROLOGIC: Denies numbness, tingling or weakness. ENDOCRINE: Denies fatigue, weight change, polydipsia or polyurina. GENITOURINARY: Denies burning, hematuria or urgency with micturation. HEMATOLOGIC: Denies history of anemia or bleeding. PHYSICAL EXAMINATION Blood pressure 105/62 heart rate 60 afebrile and maintaining oxygen saturation on 2 L nasal cannula. CONSTITUTIONAL: No apparent distress, chronically ill-appearing, obese, pleasant HEENT: Head is normocephalic. Pupils are equal, round. Sclerae anicteric. Mucous membranes of the mouth are moist. No JVD. No carotid bruit. CHEST EXAMINATION: Lungs are clear to auscultation. No chest wall tenderness is noted on palpation or with deep breathing. HEART EXAMINATION: Regular rate and rhythm. S1, S2 heard. No murmurs, gallops or rub. ABDOMEN: Soft, nontender. Positive bowel sounds. EXTREMITIES: 2+ peripheral pulses, trace lower extremity edema and no calf tenderness. NEUROLOGIC EXAMINATION: Patient is awake, alert and oriented x3. ASSESSMENT 1. Recurrent ventricular tachycardia with ventricular tachycardia storm 2. Severe ischemic myopathy 3. History of COPD 4. Coronary artery disease status post CABG, no current anginal type symptoms 5. History of lung mass 6. Acute kidney injury, improved 7. History of hyperlipidemia PLAN Patient has been without VT while on amiodarone drip which just as well as lidocaine drip. Discussed with electrophysiology and will obtain their opinion. We will start mexiletine 150 mg 3 times a day as well as amiodarone by mouth load with 400 mg twice a day. We will check TSH. There does not appear to be any angina noted and patient has desired a no code. We will attempt to maximize medical therapy. Continue Coreg 12.5 mg twice a day. Prognosis guarded. We will interrogate patient's device. Objective - Vital Signs Vital signs: Vital Signs Temp 98.4 F 01/19/20 04:00 Pulse 72 01/19/20 08:00 Resp 12 01/19/20 08:00 BP 104/80 01/19/20 08:00 Pulse Ox 96 01/19/20 08:00 Intake & Output 01/18/20 01/19/20 01/19/20 18:59 06:59 18:59 Intake Total 1094.125 700 Output Total 1415 995 Balance -320.875 -295 Weight 95.5 kg Intake: IV 120 400 0.9 NS 120 100 Potassium Chloride 10 meq 300 In Water For Injection 1 100ml.bag @ 100 mls/hr IVPB Q1H [facility] Rx#: [id number] Intake, IV Titration 174.125 Amount Lidocaine-D5w Pmx 2G/ 174.125 250Ml 2,000 mg In Dextrose/Water 1 250ml. bag @ 1 MG/MIN 7.5 mls/hr IV .Q24H [facility] Rx#: [id number] Oral 800 300 Output: Urine 1415 995 Uretheral ([place]) 230 Other: Voiding Method Indwelling Catheter Indwelling Catheter Indwelling Catheter - Labs CBC & Chem 7: 01/19/20 03:42 01/19/20 07:43 Labs: Abnormal Lab Results - Last 24 Hours (Table) 01/18/20 01/19/20 01/19/20 Range/Units 13:55 03:42 03:42 RBC 2.89 L (4.30-5.90) m/uL Hgb 9.0 L (13.0-17.5) gm/dL Hct 27.9 L (39.0-53.0) % Sodium 134 L (137-145) mmol/L Chloride 93 L (98-107) mmol/L Carbon Dioxide 34 H (22-30) mmol/L Creatinine 1.28 H (0.66-1.25) mg/dL Glucose 126 H (74-99) mg/dL Magnesium 2.5 H (1.6-2.3) mg/dL
[2020-01-19] MEDS: MAGNESIUM SULFATE-D5W PMX 1 GM in DEXTROSE/WATER 1 100ML.BAG IVPB SCH ×2 (11:38→13:47)
[2020-01-19] MEDS: MEXILETINE 150 MG CAP PO SCH ×3 (11:39→23:47)
[2020-01-19] MEDS: AMIODARONE 200 MG TAB PO SCH ×2 (11:39→20:30)
[2020-01-19] MEDS: ALPRAZolam 0.25 MG TAB PO SCH ×2 (11:39→21:41)
--- NOTE | 2020-01-19 13:34 | P.PN ---
Subjective Progress Note Date: 01/19/20 HISTORY OF PRESENT ILLNESS This is a 59-year-old male patient of Drs. Bautista, Jing and Farideh with past medical history of coronary artery disease and status post coronary artery bypass grafting and previous angioplasty and stenting so that, heart catheterization in September 2018 revealed severe stenosis of the LAD with occluded first obtuse marginal branch, chronically occluded mid right coronary artery, mild to moderate disease of the proximal left circumflex, patent JACKSON to LAD, patent saphenous vein graft to the diagonal branch and to the right PDA, severely impaired left ventricular systolic function, ischemic cardiomyopathy EF of 20-25% status post AICD, chronic systolic heart failure as well as chronic obstructive pulmonary disease, chronic hypoxic respiratory failure on home O2, hypertension, hyperlipidemia, chronic pain syndrome on methadone, tobacco use and dependencequit September 2018, obstructive sleep apnea on CPAP. Patient was last hospitalized in December of this year for acute exacerbation of COPD and hemoptysis secondary to lung mass. Patient was discharged to [facility] and is now long-term resident. Patient states he has not followed up with Dr. Gong since his last hospitalization. Patient states that he was getting up to go to the bathroom and his AICD went off the patient does not recall the whole incident. He ended up falling to the floor and has bruising to the facial areas. He subsequently has had 13 defibrillations by AICD before he arrived here with multiple following while in the emergency center. EKG was a ventricular paced r hythm at 97. Patient has been awake and alert between episodes. He was found to be afebrile, heart rate 98, blood pressure 148/94, pulse ox 96%. W BC 13.8, hemoglobin 9.5, platelet count 336. Sodium 138, potassium 3.6, chloride 93, CO2 34, BUN 23 and creatinine 1.51, blood sugar 174. Patient to be admitted into the intensive care unit and consult requested with Dr. Gong, cardiology and oncology. 01/17: Patient had another long episode of V. tach V. fib with multiple defibrillations done by his AICD. He is currently having electrolytes checked every 4 hours and potassium and magnesium have been replaced per protocol. He was started on a lidocaine drip. Patient had some difficulty with swallowing after yesterday's episode and he was placed nothing by mouth but now has passed a bedside swallow test will start oral medications. Urine output has been adequate. Patient has been afebrile, heart rate 75, blood pressure 131/76, pulse ox 97% on high flow nasal cannula and 13 L. Lab work this morning reveals WBC 8.9, hemoglobin 9.0, platelet count 286. Sodium 136, potassium 4.2, chlor tammy 94, CO2 34, BUN 18 and creatinine 1.09. Magnesium 2.0. Patient had friends come in to be with him yesterday. He does not have any close family. Dr. Mcdowell discussed in detail patient's current condition and prognosis. Patient is a no CODE STATUS as was discussed yesterday. Patient states that he does not want to suffer if symptoms continue to go on. Patient is followed closely by radiology and pulmonary medicine. 01/18: Patient did not have any episodes of ventricular tachycardia or ve ntricular fibrillation yesterday. He remains on lidocaine drip. Cardiology has started mexiletine 150 mg 3 times daily as well as amiodarone oral 400 mg twice daily. Plan to continue Coreg 12.5 mg twice daily. Patient's devices to be interrogated. Chest x-ray reveals cardiac megaly and chronic interstitial changes unchanged. Patient is been afebrile, heart rate 66, blood pressure 104/80, pulse ox 96% on 13 L high flow nasal cannula. WBC 10.0, hemoglobin 9. Sodium 134, potassium 4.5, chloride 93, CO2 23, BUN 20 creatinine 1.28. Blood sugar 126. TSH 1.040. Patient denies any new complaints today. He is found sitting on the into the bed and eating his breakfast. Overall, patient much improved from yesterday. Nursing found hemoglobin A1c from September of this year at 8.0. Repeat A1c ordered and patient will be placed on NovoLog scale. Patient does not have history of diabetes. REVIEW OF SYSTEMS Constitutional: No fever, no chills, no night sweats. No weight change. Reports weakness, Reports fatigue. No daytime sleepiness. EENT: No headache. No blurred vision or double vision, no loss of vision. No loss of Hearing, no ringing in the ears, no dizziness. No nasal drainage or congestion. No epistaxis. No sore throat. Lungs: No shortness of breath, cough, no sputum production. No wheezing. Cardiovascular: No chest pain, no lower extremity edema. No palpitations. No paroxysmal nocturnal dyspnea. No orthopnea. No lightheadedness or dizziness. No syncopal episodes. Abdominal: No abdominal pain. No nausea, vomiting. No diarrhea. No constipation. No bloody or tarry stools. No loss of appetite. Genitourinary: No dysuria, increased frequency, urgency. No urinary retention. Musculoskeletal: No myalgias. No muscle weakness, no gait dysfunction, no frequent falls. Reports back pain. No neck pain. Integumentary: No wounds, no lesions. No rash or pruritus. No unusual bruising. No change in hair or nails. Neurologic: No aphasia. No facial droop. No change in mentation. No head injury. No headache. No paralysis. No paresthesia. Psychiatric: No depression. No anxiety. No mood swings. Endocrine: Denies abnormal blood sugars. No weight change. PHYSICAL EXAMINATION Gen: This is 59-year-old male seen in ICU. Patient is sitting on the edge of the bed and eating his breakfast. He is in no acute distress. HEENT: Head is atraumatic, normocephalic. Pupils equal, round. Sclerae is anicteric. NECK: Supple. No JVD. No lymphadenopathy. No thyromegaly. LUNGS: Clear to auscultation. No wheezes or rhonchi. No intercostal retractions. HEART: Regular rate and rhythm. Systolic ejection murmur 2/6 at the left sternal border, AICD in the left upper precordium. ABDOMEN: Soft. Bowel sounds are present. No masses. No tenderness. EXTREMITIES: No pedal edema. No calf tenderness. NEUROLOGICAL: Patient is awake, alert and oriented x3. Cranial nerves 2 through 12 are grossly intact. ASSESSMENT AND PLAN 1. Ventricular tachycardia, ventricular fibrillation, multiple AICD defibrillations. Patient is currently on lidocaine drip, magnesium and potassium replacements. Patient to be admitted into the intensive care unit, consults with Dr. Gong his wire temperer and cardiology. Patient started on mexiletine 150 mg 3 times daily as well as amiodarone oral 400 mg twice daily. AICD to be interrogated. 2. Chronic hypoxemic respiratory failure with COPD not in exacerbation. Consult with Dr. Gong. Continue DuoNeb treatments 4 times daily and as needed, Pulmicort 1 mg twice daily, Mucinex twice daily, prednisone 20 mg daily. 3. Chronic systolic heart failure. Continue Lasix 40 mg oral 3 times daily, Coreg, lisinopril. 4. Chronic kidney disease stage 3. 5. Obstructive sleep apnea. Patient has done well with BiPAP. 6. Coronary artery disease status post coronary artery bypass graft with PCI and ischemic cardiomyopathy post AICD. Continue Coreg 12.5 mg orally twice every day, aspirin 81 mg daily, Lipitor 40 mg daily. 7. COPD and moderate persistent asthma. Continue DuoNeb 3 mg nebulization, inhaled steroids, Singulair 10 mg at bedtime, zyrtec [address] mg [address] with [address] Gong. 8. Hypertension and hypertensive cardiovascular disease. Continue patient on carvedilol, lisinopril 2.5 mg daily. 9. Hyperlipidemia. Continue Lipitor 40 mg orally once every day and Zetia 10 mg daily. 10. History of tobacco use and dependence. Patient quit 2018. 11. Chronic pain syndrome. Continue patient on methadone, continue home dose. 12. History of MSSA bacteremia. 13. DVT prophylaxis. Heparin subcu. 14. GI prophylaxis. Pepcid 20 mg orally once every day. CODE STATUS: No code Prognosis guarded Discharge plan: Return to [facility] this week. Social work consult. Impression and plan of care have been directed as dictated by the signing physician. Isabelle Andersen nurse practitioner acting as scribe for signing physician. Objective - Vital Signs Vital signs: Vital Signs Temp 98.4 F 01/19/20 04:00 Pulse 71 01/19/20 07:00 Resp 19 01/19/20 08:00 BP 121/81 01/19/20 07:00 Pulse Ox 96 01/19/20 07:00 Intake & Output 01/18/20 01/19/20 01/19/20 18:59 06:59 18:59 Intake Total 1094.125 700 Output Total 1415 995 Balance -320.875 -295 Weight 95.5 kg Intake: IV 120 400 0.9 NS 120 100 Potassium Chloride 10 meq 300 In Water For Injection 1 100ml.bag @ 100 mls/hr IVPB Q1H [facility] Rx#: [id number] Intake, IV Titration 174.125 Amount Lidocaine-D5w Pmx 2G/ 174.125 250Ml 2,000 mg In Dextrose/Water 1 250ml. bag @ 1 MG/MIN 7.5 mls/hr IV .Q24H [facility] Rx#: [id number] Oral 800 300 Output: Urine 1415 995 Uretheral ([place]) 230 Other: Voiding Method Indwelling Catheter Indwelling Catheter Indwelling Catheter - Labs CBC & Chem 7: 01/19/20 03:42 01/19/20 07:43 Labs: Abnormal Lab Results - Last 24 Hours (Table) 01/18/20 01/19/20 01/19/20 Range/Units 13:55 03:42 03:42 RBC 2.89 L (4.30-5.90) m/uL Hgb 9.0 L (13.0-17.5) gm/dL Hct 27.9 L (39.0-53.0) % Sodium 134 L (137-145) mmol/L Chloride 93 L (98-107) mmol/L Carbon Dioxide 34 H (22-30) mmol/L Creatinine 1.28 H (0.66-1.25) mg/dL Glucose 126 H (74-99) mg/dL Magnesium 2.5 H (1.6-2.3) mg/dL
--- NOTE | 2020-01-19 14:57 | P.PCN ---
Preoperative Diagnosis: Biventricular ICD interrogation Indication Recurrent ICD shocks The Metronic biventricular ICD was interrogated Atrial pacing impedance 513 ohms, pacing threshold 0.7 V at 0.4 ms, P waves 2.1 mV RV pacing impedance 361 ohms, RV coil impedance 47 ohms Pacing threshold 1.6 V at 0.4 ms and R waves 8.8 mV There is a His bundle lead connected to the LV port Complete loss of capture 0.9 V at 1 ms Currently on twelve-lead ECG he is His bundle pacing, selective His bundle capture Interrogation of the device reveals 65 episodes of ventricular fibrillation 5 episodes of fast VT that accelerated to ventricular fibrillation Total of 69 episodes, Episodes appropriately sensed Plan Continue oral amiodarone. Stop IV amiodarone Add mexiletine, taper off lidocaine over the next 6 hours TSH level Discussed with Dr. Sultana Tomorrow I will be interrogated and reprogrammed the device as appropriate
--- NOTE | 2020-01-19 16:23 | P.PN ---
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 without exacerbation Chronic kidney disease Coronary artery disease status post CABG Sleep disorder breathing and sleep apnea Dyslipidemia 01/19/2020, patient seen eval examined during the rounds labs reviewed medica tions reviewed care plan discussed with the staff at length, patient has been on 10 L high flow oxygen oxygen saturation ranging from 95-96% with decrease oxygen to 8 L, patient remains on lidocaine drip, the patient has been started on oral amiodarone now along with Mexitil, minor dry and he is being given as well, hemodynamic status stable, we'll continue to monitor potassium and magnesium and replace accordingly once off of lidocaine drip patient can be moved out of the ICU to [facility] care 01/18/2020, patient seen eval examined during the rounds labs reviewed medications reviewed care plan discussed, patient is more awake on 14 L high flow oxygen, off of nonrebreather mask, breathing comfortably, denies any chest pain, no more V. tach has been noted overnight, patient remains nothing by mouth we'll start clear liquid diet and oral medications, and monitor patient closely in ICU, patient remains on potassium replacement and magnesium replacement protocol along with infusion of lidocaine and amiodarone drip hemodynamic status stable labs reviewed medications reviewed care plan discussed with staff at length This patient is well-known to be has a history of multiple medical problems and issues came into hospital with AICD firing multiple times, patient has been found to have low magnesium and potassium has been on multiple antiarrhythmic agents last V. tach/V. fib happened at around 8:15 since then he is stable he remains awake however his oxygen from baseline of 6 went up to a nonrebreather mask with 100% oxygen His past medical history of coronary artery disease and status post coronary artery bypass grafting and previous angioplasty and stenting so that, heart catheterization in September 2018 revealed severe stenosis of the LAD with occluded first obtuse marginal branch, chronically occluded mid right coronary artery, mild to moderate disease of the proximal left circumflex, patent JACKSON to LAD, patent saphenous vein graft to the diagonal branch and to the right PDA, severely impaired left ventricular systolic function, ischemic cardiomyopathy EF of 20-25% status post AICD, chronic systolic heart failure as well as chronic obstructive pulmonary disease, chronic hypoxic respiratory failure on home O2, hypertension, hyperlipidemia, chronic pain syndrome on methadone, tobacco use and dependencequit September 2018, obstructive sleep apnea on CPAP. Patient was last hospitalized in December of this year for acute exacerbation of COPD and hemoptysis secondary to lung mass. Patient was discharged to [facility] and is now long-term resident. Patient states he has not followed up with Dr. Gong since his last hospitalization. Patient states that he was getting up to go to the bathroom and his AICD went off the patient does not recall the whole incident. He ended up falling to the floor and has bruising to the facial areas. He subsequently has had 13 defibrillations by AICD before he arrived here with multiple following while in the emergency center been subsequently in ICU patient eventually required amiodarone drip lidocaine drip and a protocol established to keep magnesium up an more than 2 and potassium up an more than 4.5. Objective - Vital Signs Vital signs: Vital Signs Temp 97.6 F 01/19/20 12:00 Pulse 55 L 01/19/20 14:00 Resp 14 01/19/20 14:00 BP 89/68 01/19/20 14:00 Pulse Ox 95 01/19/20 15:16 Intake & Output 01/18/20 01/19/20 01/19/20 18:59 06:59 18:59 Intake Total 1094.125 700 990 Output Total 1415 995 600 Balance -320.875 -295 390 Weight 95.5 kg Intake: IV 120 400 70 0.9 NS 120 100 70 Potassium Chloride 10 meq 300 In Water For Injection 1 100ml.bag @ 100 mls/hr IVPB Q1H JULIANE Rx#: [id number] Intake, IV Titration 174.125 200 Amount Lidocaine-D5w Pmx 2G/ 174.125 250Ml 2,000 mg In Dextrose/Water 1 250ml. bag @ 1 MG/MIN 7.5 mls/hr IV .Q24H JULIANE Rx#: [id number] Magnesium Sulfate-D5w Pmx 200 1 gm In Dextrose/Water 1 100ml.bag @ 100 mls/hr IVPB Q1H JULIANE Rx#: [id number] Oral 800 300 720 Output: Urine 1415 995 600 Uretheral ([place]) 230 Other: Voiding Method Indwelling Catheter Indwelling Catheter Indwelling Catheter - Exam Vitals: Afebrile temperature 90.8, blood pressure is 110 to 1:30/60-70, heart rate variable now A. fib with controlled rate 60-70, respiratory rate 20-24 - Constitutional General appearance: average body habitus, cooperative, disheveled - EENT Eyes: EOMI Ears: bilateral: normal - Neck Neck: normal ROM Carotids: bilateral: upstroke normal Thyroid: bilateral: normal size - Respiratory Respiratory: bilateral: diminished - Cardiovascular Rhythm: regular Heart sounds: normal: S1, S2 - Neurologic Neurologic: CNII-XII intact - Musculoskeletal Musculoskeletal: generalized weakness, strength equal bilaterally - Psychiatric Psychiatric: A&O x's 3, appropriate affect - Labs CBC & Chem 7: 01/19/20 03:42 01/19/20 07:43 Labs: Abnormal Lab Results - Last 24 Hours (Table) 01/19/20 01/19/20 Range/Units 03:42 03:42 RBC 2.89 L (4.30-5.90) m/uL Hgb 9.0 L (13.0-17.5) gm/dL Hct 27.9 L (39.0-53.0) % Sodium 134 L (137-145) mmol/L Chloride 93 L (98-107) mmol/L Carbon Dioxide 34 H (22-30) mmol/L Creatinine 1.28 H (0.66-1.25) mg/dL Glucose 126 H (74-99) mg/dL Assessment and Plan Assessment: Intermittent ventricular tachycardia, stable in last 36 hours Ischemic cardiomyopathy with ejection fraction of 2025% baseline Electrolyte imbalance with relative hypokalemia and relative hypomagnesemia 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 without exacerbation Chronic kidney disease Coronary artery disease status post CABG Sleep disorder breathing and sleep apnea Dyslipidemia Plan: Monitor and observe and advance diet as tolerated Rate and rhythm remains stabilized with magnesium and potassium protocol with daily checks, lidocaine drip Continue to support with supplemental oxygen and bronchodilator along with maintenance dose of prednisone Titrated oxygen down as tolerated Keep in ICU for now, hopefully next 24 hours should be able to move out of the ICU Monitor clinical course closely further recommendations pending Time with Patient: Greater than 30
[2020-01-19] MEDS: METHADONE 5 MG TAB PO SCH (17:15)
[2020-01-19] MEDS: ALPRAZolam 0.25 MG TAB PO PRN (17:24)
[2020-01-19 17:47] LABS: Hemoglobin A1C 6.7 % (4.0-6.0)
[2020-01-19] MEDS: INSULIN ASPART (NovoLOG) 100 UNIT/ML VIAL SQ SCH ×2 (18:21→20:36)
[2020-01-19] MEDS: ATORVASTATIN 40 MG TAB PO SCH (20:30)
[2020-01-19] MEDS: LORATADINE 10 MG TAB PO SCH (20:30)
[2020-01-19] MEDS: MONTELUKAST 10 MG TAB PO SCH (20:30)
[2020-01-19 20:35] LABS: Glucose,Whole Blood 190 mg/dL (75-99)
[2020-01-19] MEDS: EZETIMIBE 10 MG TAB PO SCH (21:41)
[2020-01-20] MEDS: HYDROmorphone 0.5 MG/0.5 ML SYRINGE IVP PRN ×6 (01:40→20:11)
[2020-01-20 04:44] LABS: Basophils % (A) 0 %; Eosinophils # (A) 0.3 k/uL (0-0.7); Eosinophils % (A) 4 %; HGB 8.3 gm/dL (13.0-17.5); Hypochromasia Marked; Lymphocytes # (A) 1.8 k/uL (1.0-4.8); Lymphocytes % (A) 20 %; MCH 29.8 pg (25.0-35.0); MCHC 30.5 g/dL (31.0-37.0); MCV 97.8 fL (80.0-100.0); Mean Platelet Volume 7.2; Monocytes # (A) 0.8 k/uL (0-1.0); Monocytes % (A) 8 %; Neutrophils # (A) 5.8 k/uL (1.3-7.7); Neutrophils % (A) 65 %; Platelet Count 221 k/uL (150-450); RBC 2.77 m/uL (4.30-5.90); RDW 15.5 % (11.5-15.5); WBC 8.9 k/uL (3.8-10.6)
[2020-01-20 04:55] LABS: Albumin 3.4 g/dL (3.5-5.0); Calcium 8.7 mg/dL (8.4-10.2); Total Bilirubin 0.4 mg/dL (0.2-1.3)
[2020-01-20] MEDS: METHADONE 10 MG TAB PO SCH ×2 (06:25→17:12)
[2020-01-20] MEDS: FUROSEMIDE 40 MG TAB PO SCH ×3 (06:25→17:11)
[2020-01-20] MEDS: INSULIN ASPART (NovoLOG) 100 UNIT/ML VIAL SQ SCH ×4 (06:33→20:55)
[2020-01-20 06:34] LABS: Glucose,Whole Blood 110 mg/dL (75-99)
[2020-01-20] MEDS: SYMBICORT 80-4.5 MCG INHALER INHALATION SCH ×2 (07:28→19:36)
[2020-01-20] MEDS: IPRATROPIUM-ALBUTEROL 3 ML NEB INHALATION SCH ×4 (07:28→19:36)
[2020-01-20] MEDS: MEXILETINE 150 MG CAP PO SCH ×2 (08:23→17:12)
[2020-01-20] MEDS: MIDODRINE 5 MG TAB PO SCH ×3 (08:23→17:12)
[2020-01-20] MEDS: guaiFENesin 600 MG TABLET.ER PO SCH ×2 (08:23→21:00)
[2020-01-20] MEDS: ASPIRIN 81 MG PO SCH (08:23)
[2020-01-20] MEDS: NICOTINE 21MG/24HR PATCH TRANSDERM SCH (08:23)
[2020-01-20] MEDS: MULTIVITAMINS, THERA 1 EACH TAB PO SCH (08:23)
[2020-01-20] MEDS: ALPRAZolam 0.25 MG TAB PO PRN (08:23)
[2020-01-20] MEDS: carvediloL 12.5 MG TAB PO SCH ×2 (08:23→21:00)
[2020-01-20] MEDS: predniSONE 20 MG TAB PO SCH (08:23)
[2020-01-20] MEDS: POTASSIUM CHLORIDE 10 MEQ in WATER FOR INJECTION 1 100ML.BAG IVPB SCH ×2 (08:24→10:03)
[2020-01-20] MEDS: AMIODARONE 200 MG TAB PO SCH ×2 (08:24→20:58)
--- NOTE | 2020-01-20 08:57 | XR ---
EXAMINATION TYPE: XR chest 1V portable DATE OF EXAM: 01/20/2020 COMPARISON: 01/19/2020 HISTORY: COPD TECHNIQUE: Single frontal view of the chest is obtained. FINDINGS: Sternotomy wires. Left-sided AICD. Elevation of the right hemidiaphragm and right basilar atelectasis redemonstrated. Cardiomegaly. Mediastinal silhouette unchanged. Chronic interstitial coar sening. No focal air space opacity, pleural effusion, or pneumothorax seen. The osseous structures ar e intact. Arthropathy of the shoulders. IMPRESSION: 1. Stable chronic elevation the right hemidiaphragm with basilar consolidation.
--- NOTE | 2020-01-20 11:10 | P.PN ---
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 tach or rapid ventricular response has been noted patient remains intermittently in A. fib irregular with controlled ventricular response and denies any chest pain, mag and phosphorus and potassium being repleted, hemodynamic status stable, lid ocaine is off, patient has been on oral Mexitil and amiodarone tolerating well, can be moved out of the ICU 01/19/2020, patient seen eval examined during the rounds labs reviewed medications reviewed care plan discussed with the staff at length, patient has been on 10 L high flow oxygen oxygen saturation ranging from 95-96% with decrease oxygen to 8 L, patient remains on lidocaine drip, the patient has been started on oral amiodarone now along with Mexitil, minor dry and he is being given as well, hemodynamic status stable, we'll continue to monitor potassium and magnesium and replace accordingly once off of lidocaine drip patient can be moved out of the ICU to select care 01/18/2020, patient seen eval examined during the rounds labs reviewed medications reviewed care plan discussed, patient is more awake on 14 L high flow oxygen, off of nonrebreather mask, breathing comfortably, denies any chest pain, no more V. tach has been noted overnight, patient remains nothing by mouth we'll start clear liquid diet and oral medications, and monitor patient closely in ICU, patient remains on potassium replacement and magnesium replacement protocol along with infusion of lidocaine and amiodarone drip hemodynamic status stable labs reviewed medications reviewed care plan discussed with staff at length This patient is well-known to be has a history of multiple medical problems and issues came into hospital with AICD firing multiple times, patient has been found to have low magnesium and potassium has been on multiple antiarrhythmic agents last V. tach/V. fib happened at around 8:15 since then he is stable he remains awake however his oxygen from baseline of 6 went up to a nonrebreather mask with 100% oxygen His past medical history of coronary artery disease and status post coronary artery bypass grafting and previous angioplasty and stenting so that, heart catheterization in September 2018 revealed severe stenosis of the LAD with occluded first obtuse marginal branch, chronically occluded mid right coronary artery, mild to moderate disease of the proximal left circumflex, patent JACKSON to LAD, patent saphenous vein graft to the diagonal branch and to the right PDA, severely impaired left ventricular systolic function, ischemic cardiomyopathy EF of 20-25% status post AICD, chronic systolic heart failure as well as chronic obstructive pulmonary disease, chronic hypoxic respiratory failure on home O2, hypertension, hyperlipidemia, chronic pain syndrome on methadone, tobacco use and dependencequit September 2018, obstructive sleep apnea on CPAP. Patient was last hospitalized in December of this year for acute exacerbation of COPD and hemoptysis secondary to lung mass. Patient was discharged to [facility] and is now long-term resident. Patient states he has not followed up with Dr. Gong since his last hospitalization. Patient states that he was getting up to go to the bathroom and his AICD went off the patient does not recall the whole incident. He ended up falling to the floor and has bruising to the facial areas. He subsequently has had 13 defibrillations by AICD before he arrived here with multiple following while in the emergency center been subsequently in ICU p atient eventually required amiodarone drip lidocaine drip and a protocol established to keep magnesium up an more than 2 and potassium up an more than 4.5. Objective - Vital Signs Vital signs: Vital Signs Temp 97.6 F 01/20/20 08:00 Pulse 54 L 01/20/20 09:00 Resp 18 01/20/20 09:00 BP 123/80 01/20/20 09:00 Pulse Ox 92 L 01/20/20 09:00 Intake & Output 01/19/20 01/20/20 01/20/20 18:59 06:59 18:59 Intake Total 1390 590 130 Output Total 895 925 180 Balance 495 -335 -50 Weight 92.8 kg Intake: IV 110 120 30 0.9 NS 110 120 30 Intake, IV Titration 200 100 Amount Magnesium Sulfate-D5w Pmx 200 1 gm In Dextrose/Water 1 100ml.bag @ 100 mls/hr IVPB Q1H JULIANE Rx#: [id number] Potassium Chloride 10 meq 100 In Water For Injection 1 100ml.bag @ 100 mls/hr IVPB Q1H JULIANE Rx#: [id number] Oral 1080 470 Output: Urine 895 925 180 Other: Voiding Method Indwelling Catheter Indwelling Catheter Indwelling Catheter - Exam Vitals: Afebrile temperature 90.8, blood pressure is 110 to 1:30/60-70, heart rate variable now A. fib with controlled rate 60-70, respiratory rate 20-24 - Constitutional General appearance: average body habitus, cooperative, disheveled - EENT Eyes: EOMI Ears: bilateral: normal - Neck Neck: normal ROM Carotids: bilateral: upstroke normal Thyroid: bilateral: normal size - Respiratory Respiratory: bilateral: diminished - Cardiovascular Rhythm: regular Heart sounds: normal: S1, S2 - Neurologic Neurologic: CNII-XII intact - Musculoskeletal Musculoskeletal: generalized weakness, strength equal bilaterally - Psychiatric Psychiatric: A&O x's 3, appropriate affect - Labs CBC & Chem 7: 01/20/20 04:26 01/20/20 04:26 Labs: Abnormal Lab Results - Last 24 Hours (Table) 01/19/20 01/19/20 01/20/20 Range/Units 03:42 20:34 04:26 RBC 2.77 L (4.30-5.90) m/uL Hgb 8.3 L (13.0-17.5) gm/dL Hct 27.0 L (39.0-53.0) % MCHC 30.5 L (31.0-37.0) g/dL Sodium (137-145) mmol/L Chloride (98-107) mmol/L Carbon Dioxide (22-30) mmol/L BUN (9-20) mg/dL Creatinine (0.66-1.25) mg/dL Glucose (74-99) mg/dL POC Glucose (mg/dL) 190 H (75-99) mg/dL Hemoglobin A1c 6.7 H (4.0-6.0) % Total Protein (6.3-8.2) g/dL Albumin (3.5-5.0) g/dL 01/20/20 01/20/20 Range/Units 04:26 06:32 RBC (4.30-5.90) m/uL Hgb (13.0-17.5) gm/dL Hct (39.0-53.0) % MCHC (31.0-37.0) g/dL Sodium 135 L (137-145) mmol/L Chloride 95 L (98-107) mmol/L Carbon Dioxide 31 H (22-30) mmol/L BUN 26 H (9-20) mg/dL Creatinine 1.33 H (0.66-1.25) mg/dL Glucose 105 H (74-99) mg/dL POC Glucose (mg/dL) 110 H (75-99) mg/dL Hemoglobin A1c (4.0-6.0) % Total Protein 6.0 L (6.3-8.2) g/dL Albumin 3.4 L (3.5-5.0) g/dL Assessment and Plan Assessment: Intermittent ventricular tachycardia, stable so far Ischemic cardiomyopathy with ejection fraction of 20-25% baseline Electrolyte imbalance with relative hypokalemia and relative hypomagnesemia 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
[2020-01-20] MEDS: ALPRAZolam 0.25 MG TAB PO SCH ×2 (11:34→20:57)
[2020-01-20 11:39] LABS: Glucose,Whole Blood 118 mg/dL (75-99)
--- NOTE | 2020-01-20 11:52 | PN ---
PROGRESS NOTE This is a 59-year-old gentleman that is admitted to the hospital with recurrent ICD shocks. He has a [employer] biventricular ICD that has been interrogated yesterday. He is currently on mexiletine and is also on amiodarone. EXAM: Heart rate is 50 beats per minute, blood pressure is 123/80, respiratory rate is 18, O2 saturation is 92%. Chest exam reveals good air entry bilaterally. Heart exam reveals first and second heart sounds. No gallop. Abdomen is soft. Exam of extremities did not reveal any edema. Peripheral pulses are felt. LABORATORY DATA: Labs show a hemoglobin of 8.3, potassium is 4, creatinine is 1.3. ASSESSMENT: 1. Recurrent ventricular tachycardia. 2. Ischemic cardiomyopathy. 3. Coronary artery disease, status post coronary artery bypass graft. 4. History of lung mass. PLAN: The patient will continue amiodarone 400 b.i.d., Coreg, mexiletine 150 q.8 hours. MMODL / IJN: [id number] /
--- NOTE | 2020-01-20 13:57 | P.PN ---
Subjective Progress Note Date: 01/20/20 HISTORY OF PRESENT ILLNESS This is a 59-year-old male patient of Drs. Bautista, Jing and Farideh with past medical history of coronary artery disease and status post coronary artery bypass grafting and previous angioplasty and stenting so that, heart catheterization in September 2018 revealed severe stenosis of the LAD with occluded first obtuse marginal branch, chronically occluded mid right coronary artery, mild to moderate disease of the proximal left circumflex, patent JACKSON to LAD, patent saphenous vein graft to the diagonal branch and to the right PDA, severely impaired left ventricular systolic function, ischemic cardiomyopathy EF of 20-25% status post AICD, chronic systolic heart failure as well as chronic obstructive pulmonary disease, chronic hypoxic respiratory failure on home O2, hypertension, hyperlipidemia, chronic pain syndrome on methadone, tobacco use and dependencequit September 2018, obstructive sleep apnea on CPAP. Patient was last hospitalized in December of this year for acute exacerbation of COPD and hemoptysis secondary to lung mass. Patient was discharged to [facility] and is now long-term resident. Patient states he has not followed up with Dr. Gong since his last hospitalization. Patient states that he was getting up to go to the bathroom and his AICD went off the patient does not recall the whole incident. He ended up falling to the floor and has bruising to the facial areas. He subsequently has had 13 defibrillations by AICD before he arrived here with multiple following while in the emergency center. EKG was a ventricular paced r hythm at 97. Patient has been awake and alert between episodes. He was found to be afebrile, heart rate 98, blood pressure 148/94, pulse ox 96%. W BC 13.8, hemoglobin 9.5, platelet count 336. Sodium 138, potassium 3.6, chloride 93, CO2 34, BUN 23 and creatinine 1.51, blood sugar 174. Patient to be admitted into the intensive care unit and consult requested with Dr. Gong, cardiology and oncology. 01/17: Patient had another long episode of V. tach V. fib with multiple defibrillations done by his AICD. He is currently having electrolytes checked every 4 hours and potassium and magnesium have been replaced per protocol. He was started on a lidocaine drip. Patient had some difficulty with swallowing after yesterday's episode and he was placed nothing by mouth but now has passed a bedside swallow test will start oral medications. Urine output has been adequate. Patient has been afebrile, heart rate 75, blood pressure 131/76, pulse ox 97% on high flow nasal cannula and 13 L. Lab work this morning reveals WBC 8.9, hemoglobin 9.0, platelet count 286. Sodium 136, potassium 4.2, chlor tammy 94, CO2 34, BUN 18 and creatinine 1.09. Magnesium 2.0. Patient had friends come in to be with him yesterday. He does not have any close family. Dr. Mcdowell discussed in detail patient's current condition and prognosis. Patient is a no CODE STATUS as was discussed yesterday. Patient states that he does not want to suffer if symptoms continue to go on. Patient is followed closely by radiology and pulmonary medicine. 01/18: Patient did not have any episodes of ventricular tachycardia or ve ntricular fibrillation yesterday. He remains on lidocaine drip. Cardiology has started mexiletine 150 mg 3 times daily as well as amiodarone oral 400 mg twice daily. Plan to continue Coreg 12.5 mg twice daily. Patient's devices to be interrogated. Chest x-ray reveals cardiac megaly and chronic interstitial changes unchanged. Patient is been afebrile, heart rate 66, blood pressure 104/80, pulse ox 96% on 13 L high flow nasal cannula. WBC 10.0, hemoglobin 9. Sodium 134, potassium 4.5, chloride 93, CO2 23, BUN 20 creatinine 1.28. Blood sugar 126. TSH 1.040. Patient denies any new complaints today. He is found sitting on the into the bed and eating his breakfast. Overall, patient much improved from yesterday. Nursing found hemoglobin A1c from September of this year at 8.0. Repeat A1c ordered and patient will be placed on NovoLog scale. Patient does not have history of diabetes. 01/19: Patient remains in the intensive care unit. He has had no further episodes of ventricular tachycardia/ventricular fibrillation. No discharges from AICD. He is off lidocaine drip. Patient is currently on amiodarone, Coreg and mexiletine. Repeat blood work reveals WBC 8.9, hemoglobin 8.3, platelet count 221. Sodium 135, potassium 4.0, chloride 95, CO2 31, BUN 26 and creatinine 1.33. Blood sugars running between 105 190. Repeat chest x-ray is stable chronic elevation of the right hemidiaphragm with basilar consolidation. Patient to be transferred to the cardiac stepdown unit. REVIEW OF SYSTEMS Constitutional: No fever, no chills, no night sweats. No weight change. Reports weakness, Reports fatigue. No daytime sleepiness. EENT: No headache. No blurred vision or double vision, no loss of vision. No loss of Hearing, no ringing in the ears, no dizziness. No nasal drainage or congestion. No epistaxis. No sore throat. Lungs: No shortness of breath, cough, no sputum production. No wheezing. Cardiovascular: No chest pain, no lower extremity edema. No palpitations. No paroxysmal nocturnal dyspnea. No orthopnea. No lightheadedness or dizziness. No syncopal episodes. Abdominal: No abdominal pain. No nausea, vomiting. No diarrhea. No const ipation. No bloody or tarry stools. No loss of appetite. Genitourinary: No dysuria, increased frequency, urgency. No urinary retention. Musculoskeletal: No myalgias. No muscle weakness, no gait dysfunction, no frequent falls. Reports back pain. No neck pain. Integumentary: No wounds, no lesions. No rash or pruritus. No unusual bruising. No change in hair or nails. Neurologic: No aphasia. No facial droop. No change in mentation. No headache. No paralysis. No paresthesia. Psychiatric: No depression. No anxiety. No mood swings. Endocrine: Denies abnormal blood sugars. No weight change. PHYSICAL EXAMINATION Gen: This is 59-year-old male seen in ICU. Patient is sitting up in bed and appears to be in no acute distress. HEENT: Head is atraumatic, normocephalic. Pupils equal, round. Sclerae is anicteric. NECK: Supple. No JVD. No lymphadenopathy. No thyromegaly. LUNGS: Clear to auscultation. No wheezes or rhonchi. No intercostal retractions. HEART: Regular rate and rhythm. Systolic ejection murmur 2/6 at the left sternal border, AICD in the left upper precordium. ABDOMEN: Soft. Bowel sounds are present. No masses. No tenderness. EXTREMITIES: No pedal edema. No calf tenderness. Dorsalis pedis palpable bilaterally. NEUROLOGICAL: Patient is awake, alert and oriented x3. Cranial nerves 2 through 12 are grossly intact. ASSESSMENT AND PLAN 1. Ventricular tachycardia, ventricular fibrillation, multiple AICD defibr illations. Patient is off lidocaine drip. Patient to be admitted into the intensive care unit, consults with Dr. Gong his pill coater and cardiology. Continue mexiletine 150 mg 3 times daily as well as amiodarone oral 400 mg twice daily, Coreg 12.5 mg twice daily. AICD to be interrogated. 2. Chronic hypoxemic respiratory failure with COPD not in exacerbation. Consult with Dr. Gong. Continue DuoNeb treatments 4 times daily and as needed, Pulmicort 1 mg twice daily, Mucinex twice daily, prednisone 20 mg daily. 3. Chronic systolic heart failure. Continue Lasix 40 mg oral 3 times daily, Coreg, lisinopril. 4. Chronic kidney disease stage 3. 5. Obstructive sleep apnea. Patient has done well with BiPAP. 6. Coronary artery disease status post coronary artery bypass graft with PCI and ischemic cardiomyopathy post AICD. Continue Coreg 12.5 mg orally twice every day, aspirin 81 mg daily, Lipitor 40 mg daily. 7. COPD and moderate persistent asthma. Continue DuoNeb 3 mg nebulization, inhaled steroids, Singulair 10 mg at bedtime, zyrtec [address] mg [address] Consult with [address] Gong. 8. Hypertension and hypertensive cardiovascular disease. Continue patient on carvedilol, lisinopril 2.5 mg daily. 9. Hyperlipidemia. Continue Lipitor 40 mg orally once every day and Zetia 10 mg daily. 10. History of tobacco use and dependence. Patient quit 2018. 11. Chronic pain syndrome. Continue patient on methadone, continue home dose. 12. History of MSSA bacteremia. 13. DVT prophylaxis. Heparin subcu. 14. GI prophylaxis. Pepcid 20 mg orally once every day. CODE STATUS: No code Prognosis guarded Discharge plan: Return to [facility] this week. Social work consult. Impression and plan of care have been directed as dictated by the signing physician. Isabelle Andersen nurse practitioner acting as scribe for signing physician. Objective - Vital Signs Vital signs: Vital Signs Temp 97.9 F 01/20/20 04:00 Pulse 54 L 01/20/20 07:00 Resp 12 01/20/20 07:00 BP 116/73 01/20/20 07:00 Pulse Ox 94 L 01/20/20 07:00 Intake & Output 01/19/20 01/20/20 01/20/20 18:59 06:59 18:59 Intake Total 1390 590 10 Output Total 895 925 30 Balance 495 -335 -20 Weight 92.8 kg Intake: IV 110 120 10 0.9 NS 110 120 10 Intake, IV Titration 200 Amount Magnesium Sulfate-D5w Pmx 200 1 gm In Dextrose/Water 1 100ml.bag @ 100 mls/hr IVPB Q1H [facility] Rx#: [id number] Oral 1080 470 Output: Urine 895 925 30 Other: Voiding Method Indwelling Catheter Indwelling Catheter - Labs CBC & Chem 7: 01/20/20 04:26 01/20/20 04:26 Labs: Abnormal Lab Results - Last 24 Hours (Table) 01/19/20 01/19/20 01/20/20 Range/Units 03:42 20:34 04:26 RBC 2.77 L (4.30-5.90) m/uL Hgb 8.3 L (13.0-17.5) gm/dL Hct 27.0 L (39.0-53.0) % MCHC 30.5 L (31.0-37.0) g/dL Sodium (137-145) mmol/L Chloride (98-107) mmol/L Carbon Dioxide (22-30) mmol/L BUN (9-20) mg/dL Creatinine (0.66-1.25) mg/dL Glucose (74-99) mg/dL POC Glucose (mg/dL) 190 H (75-99) mg/dL Hemoglobin A1c 6.7 H (4.0-6.0) % Total Protein (6.3-8.2) g/dL Albumin (3.5-5.0) g/dL 01/20/20 01/20/20 Range/Units 04:26 06:32 RBC (4.30-5.90) m/uL Hgb (13.0-17.5) gm/dL Hct (39.0-53.0) % MCHC (31.0-37.0) g/dL Sodium 135 L (137-145) mmol/L Chloride 95 L (98-107) mmol/L Carbon Dioxide 31 H (22-30) mmol/L BUN 26 H (9-20) mg/dL Creatinine 1.33 H (0.66-1.25) mg/dL Glucose 105 H (74-99) mg/dL POC Glucose (mg/dL) 110 H (75-99) mg/dL Hemoglobin A1c (4.0-6.0) % Total Protein 6.0 L (6.3-8.2) g/dL Albumin 3.4 L (3.5-5.0) g/dL
[2020-01-20] MEDS: LORazepam 2 MG/ML INJ IV PRN (15:29)
[2020-01-20 17:03] LABS: Glucose,Whole Blood 158 mg/dL (75-99)
[2020-01-20] MEDS: METHADONE 5 MG TAB PO SCH (17:11)
[2020-01-20 20:49] LABS: Glucose,Whole Blood 130 mg/dL (75-99)
[2020-01-20] MEDS: ATORVASTATIN 40 MG TAB PO SCH (20:59)
[2020-01-20] MEDS: LORATADINE 10 MG TAB PO SCH (21:00)
[2020-01-21] MEDS: MEXILETINE 150 MG CAP PO SCH ×4 (00:40→23:24)
[2020-01-21] MEDS: EZETIMIBE 10 MG TAB PO SCH ×2 (00:40→20:13)
[2020-01-21] MEDS: MONTELUKAST 10 MG TAB PO SCH ×2 (00:40→20:12)
[2020-01-21] MEDS: HYDROmorphone 0.5 MG/0.5 ML SYRINGE IVP PRN ×7 (00:44→22:49)
[2020-01-21] MEDS: LORazepam 2 MG/ML INJ IV PRN (02:45)
[2020-01-21 04:48] LABS: Basophils % (A) 0 %; Eosinophils # (A) 0.3 k/uL (0-0.7); Eosinophils % (A) 3 %; HCT 23.4 % (39.0-53.0); HGB 8.4 gm/dL (13.0-17.5); Hypochromasia Marked; Lymphocytes # (A) 2.2 k/uL (1.0-4.8); Lymphocytes % (A) 20 %; MCH 35.7 pg (25.0-35.0); MCV 99.2 fL (80.0-100.0); Macrocytosis Slight; Mean Platelet Volume 7.2; Monocytes % (A) 9 %; Neutrophils # (A) 7.3 k/uL (1.3-7.7); Neutrophils % (A) 66 %; Platelet Count 257 k/uL (150-450); RBC 2.36 m/uL (4.30-5.90); RDW 15.3 % (11.5-15.5); WBC 11.1 k/uL (3.8-10.6)
[2020-01-21 05:02] LABS: Albumin 3.6 g/dL (3.5-5.0); Calcium 8.8 mg/dL (8.4-10.2); Potassium 3.8 mmol/L (3.5-5.1); Total Bilirubin 0.5 mg/dL (0.2-1.3); Total Protein 6.4 g/dL (6.3-8.2)
[2020-01-21] MEDS: METHADONE 10 MG TAB PO SCH ×2 (05:53→17:13)
[2020-01-21] MEDS: FUROSEMIDE 40 MG TAB PO SCH ×3 (05:54→17:14)
[2020-01-21] MEDS: ALPRAZolam 0.25 MG TAB PO PRN (06:30)
[2020-01-21 07:21] LABS: Glucose,Whole Blood 128 mg/dL (75-99)
--- NOTE | 2020-01-21 07:52 | XR ---
EXAMINATION TYPE: XR chest 1V portable DATE OF EXAM: 01/21/2020 COMPARISON: 01/20/2020 HISTORY: COPD TECHNIQUE: Single frontal view of the chest is obtained. FINDINGS: There is elevated right hemidiaphragm with basilar subsegmental consolidation. Tiny bilate ral effusions. Cardiac device and postoperative changes. No pneumothorax. Arthropathy shoulders. Quique elate for COPD IMPRESSION: 1. Persistent elevated right hemidiaphragm with suspected compressive atelectasis and tiny bilateral pleural effusions stable in appearance.
[2020-01-21] MEDS ORDERED: POTASSIUM CHLORIDE ER 20 MEQ TAB.ER PO SCH (08:00)
[2020-01-21] MEDS: INSULIN ASPART (NovoLOG) 100 UNIT/ML VIAL SQ SCH ×4 (08:40→20:11)
[2020-01-21] MEDS: MULTIVITAMINS, THERA 1 EACH TAB PO SCH (08:45)
[2020-01-21] MEDS: NICOTINE 21MG/24HR PATCH TRANSDERM SCH (08:45)
[2020-01-21] MEDS: ASPIRIN 81 MG PO SCH (08:45)
[2020-01-21] MEDS: AMIODARONE 200 MG TAB PO SCH ×2 (08:45→20:12)
[2020-01-21] MEDS: MIDODRINE 5 MG TAB PO SCH ×3 (08:45→17:14)
[2020-01-21] MEDS: predniSONE 20 MG TAB PO SCH (08:46)
[2020-01-21] MEDS: carvediloL 12.5 MG TAB PO SCH ×2 (08:46→20:12)
[2020-01-21] MEDS: guaiFENesin 600 MG TABLET.ER PO SCH ×2 (08:46→20:12)
[2020-01-21] MEDS: SYMBICORT 80-4.5 MCG INHALER INHALATION SCH ×2 (08:56→20:28)
[2020-01-21] MEDS: IPRATROPIUM-ALBUTEROL 3 ML NEB INHALATION SCH ×5 (08:57→20:29)
--- NOTE | 2020-01-21 08:57 | P.PN ---
Subjective Progress Note Date: 01/21/20 Principal diagnosis: Ventricular tachycardia This is a pleasant 59-year-old male past medical history significant for coronary artery disease status post CABG, severe ischemic cardiomyopathy status post biventricular AICD, hyperlipidemia, chronic kidney disease and a lung mass who presented on 01/16 secondary to multiple AICD discharges. He does have a history of heart catheterization from 2019 which showed patent JACKSON to LAD patent SVG to diagonal and to the right PDA with a severely impaired left ventricular systolic function. [facility] and experienced m ultiple shocks, per patient around 15-30. He admits he was just waking up before the shocks began and denies any preceding chest pain, shortness of breath or anginal type symptoms. Patient denies any similar episodes in past. The patient has elected to be a no code however is okay with medications. He was placed on IV amiodarone however had breakthrough ventricular tachycardia and therefore was also placed on lidocaine. He has had no recurrence since that time. 01/19/20 Patient states he feels well today. He is tolerating diet. Denies any chest pain or pressure. His had no recurrence of ventricular tachycardia since been placed on the lidocaine as well as the amiodarone. 01/21/2020 Patient states that overall he is feeling well. He denies any chest pain or pressure. He is being loaded with amiodarone 400 mg twice a day and mexiletine 150 mg every 8 hours. No further ectopy noted on telemetry, no ventricular tachycardia. REVIEW OF SYSTEMS At the time of my exam: CONSTITUTIONAL: Denies fever or chills. CARDIOVASCULAR: +chest pain still sore from being shocked, denies shortness of breath, orthopnea, PND or palpitations. RESPIRATORY: Denies cough. GASTROINTESTINAL: Denies abdominal pain, diarrhea, constipation, nausea or vomiting. MUSCULOSKELETAL: Denies myalgias. NEUROLOGIC: Denies numbness, tingling or weakness. ENDOCRINE: Denies fatigue, weight change, polydipsia or polyurina. GENITOURINARY: Denies burning, hematuria or urgency with micturation. HEMATOLOGIC: Denies history of anemia or bleeding. PHYSICAL EXAMINATION Blood pressure 123/72 heart rate 53 afebrile and maintaining oxygen saturation on 2 L nasal cannula. CONSTITUTIONAL: No apparent distress, chronically ill-appearing, obese, pleasant HEENT: Head is normocephalic. Pupils are equal, round. Sclerae anicteric. Mucous membranes of the mouth are moist. No JVD. No carotid bruit. CHEST EXAMINATION: Lungs are clear to auscultation. No chest wall tenderness is noted on palpation or with deep breathing. HEART EXAMINATION: Regular rate and rhythm. S1, S2 heard. No murmurs, gallops or rub. ABDOMEN: Soft, nontender. Positive bowel sounds. EXTREMITIES: 2+ peripheral pulses, trace lower extremity edema and no calf tenderness. NEUROLOGIC EXAMINATION: Patient is awake, alert and oriented x3. ASSESSMENT 1. Recurrent ventricular tachycardia with ventricular tachycardia storm 2. Severe ischemic myopathy 3. History of COPD 4. Coronary artery disease status post CABG, no current anginal type symptoms 5. History of lung mass 6. Acute kidney injury, improved 7. History of hyperlipidemia PLAN Discussed with electrophysiology, Dr. Green. Patient has been tolerating load well and appears to be fairly stable from his ventricular tachycardia VT storm. Ideally, long-term patient may need a VT ablation however we will address this in the future and patient has desired DNR status with multiple medical comorbidities. Discussed with internal medicine and patient is stable for discharge home on amiodarone 400 mg twice a day and mexiletine 150 mg 3 times a day with outpatient follow-up with cardiology in 1 week. Objective - Vital Signs Vital signs: Vital Signs Temp 97.9 F 01/21/20 04:15 Pulse 50 L 01/21/20 04:15 Resp 16 01/21/20 04:15 BP 122/77 01/21/20 04:15 Pulse Ox 95 01/21/20 04:15 Intake & Output 01/20/20 01/21/20 01/21/20 18:59 06:59 18:59 Intake Total 1670 120 Output Total 1175 1100 Balance 495 -980 Weight 94.7 kg Intake: IV 130 120 0.9 NS 130 120 Intake, IV Titration 200 Amount Potassium Chloride 10 meq 200 In Water For Injection 1 100ml.bag @ 100 mls/hr IVPB Q1H [facility] Rx#: [id number] Oral 1340 Output: Urine 1175 1100 Other: Voiding Method Indwelling Catheter Indwelling Catheter - Labs CBC & Chem 7: 01/21/20 03:56 01/21/20 03:56 Labs: Abnormal Lab Results - Last 24 Hours (Table) 01/20/20 01/20/2001/19/20 Range/Units 11:38 17:01 20:48 WBC (3.8-10.6) k/uL RBC (4.30-5.90) m/uL Hgb (13.0-17.5) gm/dL Hct (39.0-53.0) % MCH (25.0-35.0) pg Sodium (137-145) mmol/L Chloride (98-107) mmol/L Carbon Dioxide (22-30) mmol/L BUN (9-20) mg/dL Creatinine (0.66-1.25) mg/dL Glucose (74-99) mg/dL POC Glucose (mg/dL) 118 H 158 H 130 H (75-99) mg/dL 01/21/20 01/21/20 01/21/20 Range/Units 03:56 03:56 07:20 WBC 11.1 H (3.8-10.6) k/uL RBC 2.36 L (4.30-5.90) m/uL Hgb 8.4 L (13.0-17.5) gm/dL Hct 23.4 L (39.0-53.0) % MCH 35.7 H (25.0-35.0) pg Sodium 136 L (137-145) mmol/L Chloride 94 L (98-107) mmol/L Carbon Dioxide 32 H (22-30) mmol/L BUN 31 H (9-20) mg/dL Creatinine 1.33 H (0.66-1.25) mg/dL Glucose 110 H (74-99) mg/dL POC Glucose (mg/dL) 128 H (75-99) mg/dL
[2020-01-21] MEDS: ALPRAZolam 0.25 MG TAB PO SCH ×2 (10:53→20:12)
[2020-01-21 11:48] LABS: Glucose,Whole Blood 129 mg/dL (75-99)
--- NOTE | 2020-01-21 14:08 | P.PN ---
Subjective Progress Note Date: 01/21/20 HISTORY OF PRESENT ILLNESS This is a 59-year-old male patient of Drs. Bautista, Jing and Farideh with past medical history of coronary artery disease and status post coronary artery bypass grafting and previous angioplasty and stenting so that, heart catheterization in September 2018 revealed severe stenosis of the LAD with occluded first obtuse marginal branch, chronically occluded mid right coronary artery, mild to moderate disease of the proximal left circumflex, patent JACKSON to LAD, patent saphenous vein graft to the diagonal branch and to the right PDA, severely impaired left ventricular systolic function, ischemic cardiomyopathy EF of 20-25% status post AICD, chronic systolic heart failure as well as chronic obstructive pulmonary disease, chronic hypoxic respiratory failure on home O2, hypertension, hyperlipidemia, chronic pain syndrome on methadone, tobacco use and dependencequit September 2018, obstructive sleep apnea on CPAP. Patient was last hospitalized in December of this year for acute exacerbation of COPD and hemoptysis secondary to lung mass. Patient was discharged to [facility] and is now long-term resident. Patient states he has not followed up with Dr. Gong since his last hospitalization. Patient states that he was getting up to go to the bathroom and his AICD went off the patient does not recall the whole incident. He ended up falling to the floor and has bruising to the facial areas. He subsequently has had 13 defibrillations by AICD before he arrived here with multiple following while in the emergency center. EKG was a ventricular paced r hythm at 97. Patient has been awake and alert between episodes. He was found to be afebrile, heart rate 98, blood pressure 148/94, pulse ox 96%. W BC 13.8, hemoglobin 9.5, platelet count 336. Sodium 138, potassium 3.6, chloride 93, CO2 34, BUN 23 and creatinine 1.51, blood sugar 174. Patient to be admitted into the intensive care unit and consult requested with Dr. Gong, cardiology and oncology. 01/17: Patient had another long episode of V. tach V. fib with multiple defibrillations done by his AICD. He is currently having electrolytes checked every 4 hours and potassium and magnesium have been replaced per protocol. He was started on a lidocaine drip. Patient had some difficulty with swallowing after yesterday's episode and he was placed nothing by mouth but now has passed a bedside swallow test will start oral medications. Urine output has been adequate. Patient has been afebrile, heart rate 75, blood pressure 131/76, pulse ox 97% on high flow nasal cannula and 13 L. Lab work this morning reveals WBC 8.9, hemoglobin 9.0, platelet count 286. Sodium 136, potassium 4.2, chlor tammy 94, CO2 34, BUN 18 and creatinine 1.09. Magnesium 2.0. Patient had friends come in to be with him yesterday. He does not have any close family. Dr. Mcdowell discussed in detail patient's current condition and prognosis. Patient is a no CODE STATUS as was discussed yesterday. Patient states that he does not want to suffer if symptoms continue to go on. Patient is followed closely by radiology and pulmonary medicine. 01/18: Patient did not have any episodes of ventricular tachycardia or ve ntricular fibrillation yesterday. He remains on lidocaine drip. Cardiology has started mexiletine 150 mg 3 times daily as well as amiodarone oral 400 mg twice daily. Plan to continue Coreg 12.5 mg twice daily. Patient's devices to be interrogated. Chest x-ray reveals cardiac megaly and chronic interstitial changes unchanged. Patient is been afebrile, heart rate 66, blood pressure 104/80, pulse ox 96% on 13 L high flow nasal cannula. WBC 10.0, hemoglobin 9. Sodium 134, potassium 4.5, chloride 93, CO2 23, BUN 20 creatinine 1.28. Blood sugar 126. TSH 1.040. Patient denies any new complaints today. He is found sitting on the into the bed and eating his breakfast. Overall, patient much improved from yesterday. Nursing found hemoglobin A1c from September of this year at 8.0. Repeat A1c ordered and patient will be placed on NovoLog scale. Patient does not have history of diabetes. 01/19: Patient remains in the intensive care unit. He has had no further episodes of ventricular tachycardia/ventricular fibrillation. No discharges from AICD. He is off lidocaine drip. Patient is currently on amiodarone, Coreg and mexiletine. Repeat blood work reveals WBC 8.9, hemoglobin 8.3, platelet count 221. Sodium 135, potassium 4.0, chloride 95, CO2 31, BUN 26 and creatinine 1.33. Blood sugars running between 105 190. Repeat chest x-ray is stable chronic elevation of the right hemidiaphragm with basilar consolidation. Patient to be transferred to the cardiac stepdown unit. 01/20: Patient has had no episodes of V. tach, V. fib since Sunday. Patient may need a V. tach ablation which can be addressed in the future. He has been cleared for discharge by cardiology with plan to continue amiodarone 400 mg twice daily, mexiletine 150 mg 3 times daily and follow-up in the office in one week. Repeat chest x-ray is stable. Patient has been afebrile, heart rate 53, blood pressure 126/74, patient is currently on high flow nasal cannula at 7 L with pulse ox of 95%. Repeat blood work reveals WBC 11.1, hemoglobin 8.4, platelet count 257. Sodium 136, potassium 3.8, chloride 94, CO2 32, BUN 31 creatinine 1.33. Blood sugars are running between 110 and 158. Land monitor patient overnight and discharge back to [facility] tomorrow. REVIEW OF SYSTEMS Constitutional: No fever, no chills, no night sweats. No weight change. Reports weakness, Reports fatigue. No daytime sleepiness. EENT: No headache. No blurred vision or double vision, no loss of vision. No loss of Hearing, no ringing in the ears, no dizziness. No nasal drainage or congestion. No epistaxis. No sore throat. Lungs: No shortness of breath, cough, no sputum production. No wheezing. Cardiovascular: No chest pain, no lower extremity edema. No palpitations. No paroxysmal nocturnal dyspnea. No orthopnea. No lightheadedness or dizziness. No syncopal episodes. Abdominal: No abdominal pain. No nausea, vomiting. No diarrhea. No constipation. No bloody or tarry stools. No loss of appetite. Genitourinary: No dysuria, increased frequency, urgency. No urinary retention. Musculoskeletal: No myalgias. No muscle weakness, no gait dysfunction, no frequent falls. Reports back pain. No neck pain. Integumentary: No wounds, no lesions. No rash or pruritus. No unusual bruisi ng. No change in hair or nails. Neurologic: No aphasia. No facial droop. No change in mentation. No headache. No paralysis. No paresthesia. Psychiatric: No depression. No anxiety. No mood swings. Endocrine: Denies abnormal blood sugars. No weight change. PHYSICAL EXAMINATION Gen: This is 59-year-old male seen in ICU. Patient is sitting up in bed and appears to be in no acute distress. HEENT: Head is atraumatic, normocephalic. Pupils equal, round. Sclerae is ani cteric. NECK: Supple. No JVD. No lymphadenopathy. No thyromegaly. LUNGS: Clear to auscultation. No wheezes or rhonchi. No intercostal retractions. HEART: Regular rate and rhythm. Systolic ejection murmur 2/6 at the left sternal border, AICD in the left upper precordium. ABDOMEN: Soft. Bowel sounds are present. No masses. No tenderness. EXTREMITIES: No pedal edema. No calf tenderness. Dorsalis pedis palpable bilaterally. NEUROLOGICAL: Patient is awake, alert and oriented x3. Cranial nerves 2 through 12 are grossly intact. ASSESSMENT AND PLAN 1. Ventricular tachycardia, ventricular fibrillation, multiple AICD defibrillations. Patient is off lidocaine drip. Consults with Dr. Gong his roll finisher and cardiology. Continue mexiletine 150 mg 3 times daily as well as amiodarone oral 400 mg twice daily, Coreg 12.5 mg twice daily. 2. Chronic hypoxemic respiratory failure with COPD not in exacerbation. Consult with Dr. Gong. Continue DuoNeb treatments 4 times daily and as needed, Pulmicort 1 mg twice daily, Mucinex twice daily, prednisone 20 mg daily. 3. Chronic systolic heart failure. Continue Lasix 40 mg oral 3 times daily, Coreg, lisinopril. 4. Chronic kidney disease stage 3. 5. Obstructive sleep apnea. Patient has done well with BiPAP. 6. Coronary artery disease status post coronary artery bypass graft with PCI and ischemic cardiomyopathy post AICD. Continue Coreg 12.5 mg orally twice every day, aspirin 81 mg daily, Lipitor 40 mg daily. 7. COPD and moderate persistent asthma. Continue DuoNeb 3 mg nebulization, inhaled steroids, Singulair 10 mg at bedtime, zyrtec [address] mg [address] Gong. 8. Hypertension and hypertensive cardiovascular disease. Continue patient on carvedilol, lisinopril 2.5 mg daily. 9. Hyperlipidemia. Continue Lipitor 40 mg orally once every day and Zetia 10 mg daily. 10. History of tobacco use and dependence. Patient quit 2019. 11. Chronic pain syndrome. Continue patient on methadone, continue home dose. 12. History of MSSA bacteremia. 13. DVT prophylaxis. Heparin subcu. 14. GI prophylaxis. Pepcid 20 mg orally once every day. CODE STATUS: No code Prognosis guarded Discharge plan: Return to [facility] tomorrow. Social work consult. Impression and plan of care have been directed as dictated by the signing physician. Isabelle Andersen nurse practitioner acting as scribe for signing physician. Objective - Vital Signs Vital signs: Vital Signs Temp 97.9 F 01/21/20 04:15 Pulse 50 L 01/21/20 04:15 Resp 16 01/21/20 04:15 BP 122/77 01/21/20 04:15 Pulse Ox 95 01/21/20 04:15 Intake & Output 01/20/20 01/21/20 01/21/20 18:59 06:59 18:59 Intake Total 1670 120 Output Total 1175 1100 Balance 495 -980 Weight 94.7 kg Intake: IV 130 120 0.9 NS 130 120 Intake, IV Titration 200 Amount Potassium Chloride 10 meq 200 In Water For Injection 1 100ml.bag @ 100 mls/hr IVPB Q1H [facility] Rx#: [id number] Oral 1340 Output: Urine 1175 1100 Other: Voiding Method Indwelling Catheter Indwelling Catheter - Labs CBC & Chem 7: 01/21/20 03:56 01/21/20 03:56 Labs: Abnormal Lab Results - Last 24 Hours (Table) 01/20/20 01/20/20 01/20/20 Range/Units 11:38 17:01 20:48 WBC (3.8-10.6) k/uL RBC (4.30-5.90) m/uL Hgb (13.0-17.5) gm/dL Hct (39.0-53.0) % MCH (25.0-35.0) pg Sodium (137-145) mmol/L Chloride (98-107) mmol/L Carbon Dioxide (22-30) mmol/L BUN (9-20) mg/dL Creatinine (0.66-1.25) mg/dL Glucose (74-99) mg/dL POC Glucose (mg/dL) 118 H 158 H 130 H (75-99) mg/dL 01/21/20 01/21/20 01/21/20 Range/Units 03:56 03:56 07:20 WBC 11.1 H (3.8-10.6) k/uL RBC 2.36 L (4.30-5.90) m/uL Hgb 8.4 L (13.0-17.5) gm/dL Hct 23.4 L (39.0-53.0) % MCH 35.7 H (25.0-35.0) pg Sodium 136 L (137-145) mmol/L Chloride 94 L (98-107) mmol/L Carbon Dioxide 32 H (22-30) mmol/L BUN 31 H (9-20) mg/dL Creatinine 1.33 H (0.66-1.25) mg/dL Glucose 110 H (74-99) mg/dL POC Glucose (mg/dL) 128 H (75-99) mg/dL
[2020-01-21 17:00] LABS: Glucose,Whole Blood 213 mg/dL (75-99)
[2020-01-21] MEDS: METHADONE 5 MG TAB PO SCH (17:14)
[2020-01-21 20:06] LABS: Glucose,Whole Blood 163 mg/dL (75-99)
[2020-01-21] MEDS: LORATADINE 10 MG TAB PO SCH (20:12)
[2020-01-21] MEDS: ATORVASTATIN 40 MG TAB PO SCH (20:12)
[2020-01-22] MEDS: LORazepam 2 MG/ML INJ IV PRN ×2 (01:53→10:15)
[2020-01-22 04:09] VITALS: TEMP 97.2
[2020-01-22] MEDS: FUROSEMIDE 40 MG TAB PO SCH (05:25)
[2020-01-22] MEDS: METHADONE 10 MG TAB PO SCH (05:25)
[2020-01-22] MEDS: HYDROmorphone 0.5 MG/0.5 ML SYRINGE IVP PRN ×2 (05:45→09:37)
[2020-01-22 05:49] LABS: HCT 27.5 % (39.0-53.0); HGB 8.8 gm/dL (13.0-17.5); Hypochromasia Moderate; MCH 30.6 pg (25.0-35.0); MCHC 31.9 g/dL (31.0-37.0); MCV 95.9 fL (80.0-100.0); Mean Platelet Volume 7.1; Platelet Count 331 k/uL (150-450); RBC 2.87 m/uL (4.30-5.90); RDW 15.4 % (11.5-15.5); WBC 10.6 k/uL (3.8-10.6)
[2020-01-22] MEDS: ALPRAZolam 0.25 MG TAB PO PRN (06:16)
[2020-01-22 06:30] LABS: Calcium 9.2 mg/dL (8.4-10.2); Potassium 3.7 mmol/L (3.5-5.1)
[2020-01-22 06:40] LABS: Glucose,Whole Blood 89 mg/dL (75-99)
--- NOTE | 2020-01-22 06:52 | XR ---
EXAMINATION TYPE: XR chest 1V DATE OF EXAM: 01/22/2020 CLINICAL HISTORY: Shortness of breath TECHNIQUE: Frontal view of the chest obtained COMPARISON: 01/21/2020 chest radiograph FINDINGS: Left-sided AICD. Sternotomy wires. Elevation of the right hemidiaphragm and right basilar atelectasis. Cardiomegaly. Small pleural effusions. No pneumothorax seen. IMPRESSION: Unchanged small bilateral pleural effusions, elevation of the right hemidiaphragm and rig ht basilar atelectasis versus 01/21/2020.
[2020-01-22] MEDS: INSULIN ASPART (NovoLOG) 100 UNIT/ML VIAL SQ SCH (06:55)
[2020-01-22] MEDS: SYMBICORT 80-4.5 MCG INHALER INHALATION SCH (07:05)
[2020-01-22] MEDS: IPRATROPIUM-ALBUTEROL 3 ML NEB INHALATION SCH ×2 (07:46→11:20)
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
[2020-01-22] MEDS: AMIODARONE 200 MG TAB PO SCH (08:26)
[2020-01-22] MEDS: MEXILETINE 150 MG CAP PO SCH (08:26)
[2020-01-22] MEDS: ASPIRIN 81 MG PO SCH (08:27)
[2020-01-22] MEDS: carvediloL 12.5 MG TAB PO SCH (08:27)
[2020-01-22] MEDS: MULTIVITAMINS, THERA 1 EACH TAB PO SCH (08:27)
--- NOTE | 2020-01-22 08:27 | P.DS ---
Providers Date of admission: 01/17/20 09:29 Expected date of discharge: 01/22/20 Attending physician: Andres Mcdowell Consults: 01/17/20 09:28 Consult Physician Stat Consulting Provider: Elsy Ch Consult Reason/Comments: V. tach Do you want consulting provider notified?: Already Contacted 01/17/20 12:16 Consult Physician Stat Consulting Provider: Jose L Gong Consult Reason/Comments: pulmonary management Do you want consulting provider notified?: Already Contacted Primary care physician: [facility] Course: HISTORY OF PRESENT ILLNESS This is a 59-year-old male patient of Jing Enciso and Faride[facility] with past medical history of coronary artery disease and status post coronary artery bypass grafting and previous angioplasty and stenting so that, heart catheterization in September 2018 revealed severe stenosis of the LAD with occluded first obtuse marginal branch, chronically occluded mid right coronary artery, mild to moderate disease of the proximal left circumflex, patent JACKSON to LAD, patent saphenous vein graft to the diagonal branch and to the right PDA, severely impaired left ventricular systolic function, ischemic cardiomyopathy EF of 20-25% status post AICD, chronic systolic heart failure as well as chronic obstructive pulmonary disease, chronic hypoxic respiratory failure on home O2, hypertension, hyperlipidemia, chronic pain syndrome on methadone, tobacco use and dependencequit September 2018, obstructive sleep apnea on CPAP. Patient was last hospitalized in December of this year for acute exacerbation of COPD and hemoptysis secondary to lung mass. Patient was discharged to [facility] and is now long-term resident. Patient states he has not followed up with Dr. Gong since his last hospitalization. Patient states that he was getting up to go to the bathroom and his AICD went off the patient does not recall the whole incident. He ended up falling to the floor and has bruising to the facial areas. He sub sequently has had 13 defibrillations by AICD before he arrived here with multiple following while in the emergency center. EKG was a ventricular paced rhythm at 97. Patient has been awake and alert between episodes. He was found to be afebrile, heart rate 98, blood pressure 148/94, pulse ox 96%. W BC 13.8, hemoglobin 9.5, platelet count 336. Sodium 138, potassium 3.6, chloride 93, CO2 34, BUN 23 and creatinine 1.51, blood sugar 174. Patient to be admitted into the intensive care unit and consult requested with Dr. Gong, cardiology and oncology. 01/17: Patient had another long episode of V. tach V. fib with multiple defibrillations done by his AICD. He is currently having electrolytes checked every 4 hours and potassium and magnesium have been replaced per protocol. He was started on a lidocaine drip. Patient had some difficulty with swallowing after yesterday's episode and he was placed nothing by mouth but now has passed a bedside swallow test will start oral medications. Urine output has been adequate. Patient has been afebrile, heart rate 75, blood pressure 131/76, pulse ox 97% on high flow nasal cannula and 13 L. Lab work this morning reveals WBC 8.9, hemoglobin 9.0, platelet count 286. Sodium 136, potassium 4.2, chloride 94, CO2 34, BUN 18 and creatinine 1.09. Magnesium 2.0. Patient had friends come in to be with him yesterday. He does not have any close family. Dr. Mcdowell discussed in detail patient's current condition and prognosis. Patient is a no CODE STATUS as was discussed yesterday. Patient states that he does not want to suffer if symptoms continue to go on. Patient is followed closely by radiology and pulmonary medicine. 01/18: Patient did not have any episodes of ventricular tachycardia or ventricular fibrillation yesterday. He remains on lidocaine drip. Cardiology has started mexiletine 150 mg 3 times daily as well as amiodarone oral 400 mg twice daily. Plan to continue Coreg 12.5 mg twice daily. Patient's devices to be interrogated. Chest x-ray reveals cardiac megaly and chronic interstitial changes unchanged. Patient is been afebrile, heart rate 66, blood pressure 104/80, pulse ox 96% on 13 L high flow nasal cannula. WBC 10.0, hemoglobin 9. Sodium 134, potassium 4.5, chloride 93, CO2 23, BUN 20 creatinine 1.28. Blood sugar 126. TSH 1.040. Patient denies any new complaints today. He is found sitting on the into the bed and eating his breakfast. Overall, patient much improved from yesterday. Nursing found hemoglobin A1c from September of this year at 8.0. Repeat A1c ordered and patient will be placed on NovoLog scale. Patient does not have history of diabetes. 01/19: Patient remains in the intensive care unit. He has had no further episodes of ventricular tachycardia/ventricular fibrillation. No discharges from AICD. He is off lidocaine drip. Patient is currently on amiodarone, Coreg and mexiletine. Repeat blood work reveals WBC 8.9, hemoglobin 8.3, platelet count 221. Sodium 135, potassium 4.0, chloride 95, CO2 31, BUN 26 and creatinine 1.33. Blood sugars running between 105 190. Repeat chest x-ray is stable chronic elevation of the right hemidiaphragm with basilar consolidation. Patient to be transferred to the cardiac stepdown unit. 01/20: Patient has had no episodes of V. tach, V. fib since Sunday. Patient may need a V. tach ablation which can be addressed in the future. He has been cleared for discharge by cardiology with plan to continue amiodarone 400 mg twice daily, mexiletine 150 mg 3 times daily and follow-up in the office in one week. Repeat chest x-ray is stable. Patient has been afebrile, heart rate 53, blood pressure 126/74, patient is currently on high flow nasal cannula at 7 L with pulse ox of 95%. Repeat blood work reveals WBC 11.1, hemoglobin 8.4, platelet count 257. Sodium 136, potassium 3.8, chloride 94, CO2 32, BUN 31 creatinine 1.33. Blood sugars are running between 110 and 158. Land monitor patient overnight and discharge back to [facility] tomorrow. 01/21: Patient has remained in the ICU waiting for cardiac stepdown unit bed. He has had no further episodes of V. tach/ventricular fibrillation and defibrillator shocks since Sunday. Patient has been cleared to cardiology for discharge home continuation of amiodarone at 400 mg twice daily and mexiletine 150 mg every 8 hours. Patient will follow up with Dr. Ch in the office to decrease amiodarone dosing. Patient will be discharged back to [facility] today in stable condition.. ASSESSMENT AND PLAN 1. Ventricular tachycardia, ventricular fibrillation, multiple AICD defibrillations. 2. Chronic hypoxemic respiratory failure with COPD not in exacerbation. 3. Chronic systolic heart failure. 4. Chronic kidney disease stage 3. 5. Obstructive sleep apnea. 6. Coronary artery disease status post coronary artery bypass graft with PCI and ischemic cardiomyopathy post AICD. 7. COPD and moderate persistent asthma. 8. Hypertension and hypertensive cardiovascular disease. 9. Hyperlipidemia. 10. History of tobacco use and dependence. 11. Chronic pain syndrome. 12. History of MSSA bacteremia. Discharge plan: Return to [facility] Impression and plan of care have been directed as dictated by the signing physician. Isabelle Andersen nurse practitioner acting as scribe for signing physician. Patient Condition at Discharge: Good Plan - Discharge Summary Discharge Rx Participant: No New Discharge Prescriptions: New Amiodarone [Cordarone] 400 mg PO BID tab carvediloL [Coreg*] 12.5 mg PO BID@0900,2100 tab predniSONE [Deltasone] 20 mg PO DAILY tab Mexiletine [Mexitil] 150 mg PO Q8HR cap Continue Nitroglycerin Sl Tabs [Nitrostat] 0.4 mg SUBLINGUAL Q5M PRN #25 tab PRN Reason: Chest Pain Multivitamins, Thera [Multivitamin (formulary)] 1 tab PO DAILY@0900 Ezetimibe [Zetia] 10 mg PO HS@2100 Cetirizine HCl [Zyrtec] 10 mg PO HS@2100 Fluticasone Propion/Salmeterol [Wixela 250-50 Inhub] 1 puff INHALATION RT- BID@0900,2100 Furosemide [Lasix] 40 mg PO TID@0600,1200,1800 Acetaminophen Tab [Tylenol] 650 mg PO Q4H PRN PRN Reason: Pain Albuterol Sulfate [Ventolin HFA] 1 puff INHALATION RT-Q4H PRN PRN Reason: Shortness Of Breath Atorvastatin [Lipitor] 40 mg PO HS@2100 Hypertonic Nasal Wash 1 spray NASAL TID PRN PRN Reason: Nasal Congestion Oxymetazoline 0.05% Nasl Parachute [Afrin 0.05% Nasal Parachute] 1 spray EA NOSTRIL Q10H PRN PRN Reason: Nasal Congestion Midodrine HCl [ProAmatine] 10 mg PO TID@0900,1300,1800 guaiFENesin [Mucinex] 600 mg PO BID@0900,2100 Nicotine 21Mg/24Hr Patch [Habitrol] 1 patch TRANSDERM DAILY@0900 Montelukast [Singulair] 10 mg PO HS@2100 lisinopriL [Zestril] 2.5 mg PO DAILY@0900 Umeclidinium [place] [Incruse Ellipta] 1 puff INHALATION RT-DAILY@1200 Aspirin 81 mg PO DAILY@0900 Methadone [Dolophine] 60 mg PO DAILY@0600 #18 tab Methadone [Dolophine] 50 mg PO DAILY@1800 #15 tab Methadone [Dolophine] 5 mg PO DAILY@1800 #3 tab ALPRAZolam [Xanax] 0.25 mg PO DAILY PRN #3 tab PRN Reason: Anxiety ALPRAZolam [Xanax] 0.75 mg PO HS@2099 #9 tab ALPRAZolam [Xanax] 0.25 mg PO DAILY@1200 #3 tab Discontinued carvediloL [Coreg] 3.125 mg PO BID@0900,2099 Discharge Medication List Nitroglycerin Sl Tabs [Nitrostat] 0.4 mg SUBLINGUAL Q5M PRN #25 tab 09/24/18 [Rx] Multivitamins, Thera [Multivitamin (formulary)] 1 tab PO DAILY@0904/22/19 [History] Cetirizine HCl [Zyrtec] 10 mg PO HS@209908/30/19 [History] Ezetimibe [Zetia] 10 mg PO HS@209908/30/19 [History] Fluticasone Propion/Salmeterol [Wixela 250-50 Inhub] 1 puff INHALATION RT-BI D@899,209908/30/19 [History] Furosemide [Lasix] 40 mg PO TID@0600,1200,1800 11/13/19 [History] Acetaminophen Tab [Tylenol] 650 mg PO Q4H PRN 12/01/19 [History] Albuterol Sulfate [Ventolin HFA] 1 puff INHALATION RT-Q4H PRN 12/01/19 [History] Atorvastatin [Lipitor] 40 mg PO HS@209912/01/19 [History] Aspirin 81 mg PO DAILY@89901/17/20 [History] Hypertonic Nasal Wash 1 spray NASAL TID PRN 01/17/20 [History] Midodrine HCl [ProAmatine] 10 mg PO TID@0900,1300,1800 01/17/20 [History] Montelukast [Singulair] 10 mg PO HS@209901/17/20 [History] Nicotine 21Mg/24Hr Patch [Habitrol] 1 patch TRANSDERM DAILY@89901/17/20 [History] Oxymetazoline 0.05% Nasl Parachute [Afrin 0.05% Nasal Parachute] 1 spray EA NOSTRIL Q10H PRN 01/17/20 [History] Umeclidinium [place] [Incruse Ellipta] 1 puff INHALATION RT-DAILY@1200 01/17/20 [History] guaiFENesin [Mucinex] 600 mg PO BID@0900,2100 01/17/20 [History] lisinopriL [Zestril] 2.5 mg PO DAILY@0900 01/17/20 [History] ALPRAZolam [Xanax] 0.25 mg PO DAILY PRN #3 tab 01/22/20 [Rx] ALPRAZolam [Xanax] 0.25 mg PO DAILY@1200 #3 tab 01/22/20 [Rx] ALPRAZolam [Xanax] 0.75 mg PO HS@2100 #9 tab 01/22/20 [Rx] Amiodarone [Cordarone] 400 mg PO BID tab 01/22/20 [Rx] Methadone [Dolophine] 5 mg PO DAILY@1800 #3 tab 01/22/20 [Rx] Methadone [Dolophine] 50 mg PO DAILY@1800 #15 tab 01/22/20 [Rx] Methadone [Dolophine] 60 mg PO DAILY@0600 #18 tab 01/22/20 [Rx] Mexiletine [Mexitil] 150 mg PO Q8HR cap 01/22/20 [Rx] carvediloL [Coreg*] 12.5 mg PO BID@0900,2100 tab 01/22/20 [Rx] predniSONE [Deltasone] 20 mg PO DAILY tab 01/22/20 [Rx] Follow up Appointment(s)/Referral(s): Elsy Ch MD [STAFF PHYSICIAN] - 1 Week aRdha Conner MD [Primary Care Provider] - 1 Week (at [facility]) Discharge Disposition: TRANSFER TO SNF/ECF
[2020-01-22] MEDS: MIDODRINE 5 MG TAB PO SCH (08:28)
[2020-01-22] MEDS: predniSONE 20 MG TAB PO SCH (08:28)
[2020-01-22] MEDS: guaiFENesin 600 MG TABLET.ER PO SCH (08:29)
[2020-01-22] MEDS: NICOTINE 21MG/24HR PATCH TRANSDERM SCH (08:29)
[2020-01-22 11:11] VITALS: BP 140/91; PULSE 60; RESP 18
--- NOTE | 2020-01-22 17:01 | P.PN ---
Subjective Progress Note Date: 01/21/20 (Late entry note) Principal diagnosis: Intermittent ventricular tachycardia Ischemic cardiomyopathy with ejection fraction of 2024% baseline Electrolyte imbalance with relative hypokalemia and relative hypomagnesemia 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 without exacerbation Chronic kidney disease Coronary artery disease status post CABG Sleep disorder breathing and sleep apnea Dyslipidemia 01/21/2020, patient seen eval examined during rounds labs reviewed medications reviewed care plan discussed with the patient, hemodynamically stable, no more e pisodes of V. tach or V. fib has been noted, denies any chest pain ongoing shortness of breaths present oxygen is slowly being tapered down labs reviewed, chest x-ray reviewed and atelectasis at the bases present is small effusion cannot be excluded 01/20/2020, patient seen eval examined during the rounds labs reviewed medications reviewed patient remains on 8 L oxygen no more V. tach or rapid ve ntricular response has been noted patient remains intermittently in A. fib irregular with controlled ventricular response and denies any chest pain, mag and phosphorus and potassium being repleted, hemodynamic status stable, lidocaine is off, patient has been on oral Mexitil and amiodarone tolerating well, can be moved out of the ICU 01/19/2020, patient seen eval examined during the rounds labs reviewed medications reviewed care plan discussed with the staff at length, patient has been on 10 L high flow oxygen oxygen saturation ranging from 95-96% with decrease oxygen to 8 L, patient remains on lidocaine drip, the patient has been started on oral amiodarone now along with Mexitil, minor dry and he is being given as well, hemodynamic status stable, we'll continue to monitor potassium and magnesium and replace accordingly once off of lidocaine drip patient can be moved out of the ICU to [facility] care 01/18/2020, patient seen eval examined during the rounds labs reviewed medications reviewed care plan discussed, patient is more awake on 14 L high flow oxygen, off of nonrebreather mask, breathing comfortably, denies any chest pain, no more V. tach has been noted overnight, patient remains nothing by mouth we'll start clear liquid diet and oral medications, and monitor patient closely in ICU, patient remains on potassium replacement and magnesium replacement protocol along with infusion of lidocaine and amiodarone drip hemodynamic status stable labs reviewed medications reviewed care plan discussed with staff at length This patient is well-known to be has a history of multiple medical problems and issues came into hospital with AICD firing multiple times, patient has been fou nd to have low magnesium and potassium has been on multiple antiarrhythmic agents last V. tach/V. fib happened at around 8:15 since then he is stable he remains awake however his oxygen from baseline of 6 went up to a nonrebreather mask with 100% oxygen His past medical history of coronary artery disease and status post coronary artery bypass grafting and previous angioplasty and stenting so that, heart catheterization in September 2018 revealed severe stenosis of the LAD with occluded first obtuse marginal branch, chronically occluded mid right coronary artery, mild to moderate disease of the proximal left circumflex, patent JACKSON to LAD, patent saphenous vein graft to the diagonal branch and to the right PDA, severely impaired left ventricular systolic function, ischemic cardiomyopathy EF of 20-25% status post AICD, chronic systolic heart failure as well as chronic obstructive pulmonary disease, chronic hypoxic respiratory failure on home O2, hypertension, hyperlipidemia, chronic pain syndrome on methadone, tobacco use and dependencequit September 2018, obstructive sleep apnea on CPAP. Patient was last hospitalized in December of this year for acute exacerbation of COPD and hemoptysis secondary to lung mass. Patient was discharged to [facility] and is now long-term resident. Patient states he has not followed up with Dr. Gong since his last hospitalization. Patient states that he was getting up to go to the bathroom and his AICD went off the patient does not recall the whole incident. He ended up falling to the floor and has bruising to the facial areas. He subsequently has had 13 defibrillations by AICD before he arrived here with multiple following while in the emergency center been subsequently in ICU patient eventually required amiodarone drip lidocaine drip and a protocol established to keep magnesium up an more than 2 and potassium up an more than 4.5. Objective - Vital Signs Vital signs: Vital Signs Temp 97.2 F L 01/22/20 04:00 Pulse 60 01/22/20 08:00 Resp 18 01/22/20 08:00 BP 140/91 01/22/20 08:00 Pulse Ox 95 01/22/20 04:00 Intake & Output 01/21/20 01/22/20 01/22/20 18:59 06:59 18:59 Intake Total 600 Output Total 400 1625 Balance 200 -1625 Weight 94 kg Intake: Oral 600 Output: Urine 400 1625 Other: Voiding Method Indwelling Catheter Indwelling Catheter Indwelling Catheter - Exam Vitals: Afebrile temperature 90.8, blood pressure is 110 to 1:30/60-70, heart rate variable now A. fib with controlled rate 60-70, respiratory rate 20-24 - Constitutional General appearance: average body habitus, cooperative, disheveled - EENT Eyes: EOMI Ears: bilateral: normal - Neck Neck: normal ROM Carotids: bilateral: upstroke normal Thyroid: bilateral: normal size - Respiratory Respiratory: bilateral: diminished - Cardiovascular Rhythm: regular Heart sounds: normal: S1, S2 - Neurologic Neurologic: CNII-XII intact - Musculoskeletal Musculoskeletal: generalized weakness, strength equal bilaterally - Psychiatric Psychiatric: A&O x's 3, appropriate affect - Labs CBC & Chem 7: 01/22/20 05:14 01/22/20 05:14 Labs: Abnormal Lab Results - Last 24 Hours (Table) 01/21/20 01/21/20 01/22/20 Range/Units 16:59 20:04 05:14 RBC 2.87 L (4.30-5.90) m/uL Hgb 8.8 L (13.0-17.5) gm/dL Hct 27.5 L (39.0-53.0) % Chloride (98-107) mmol/L Carbon Dioxide (22-30) mmol/L BUN (9-20) mg/dL Glucose (74-99) mg/dL POC Glucose (mg/dL) 213 H 163 H (75-99) mg/dL 01/22/20 Range/Units 05:14 RBC (4.30-5.90) m/uL Hgb (13.0-17.5) gm/dL Hct (39.0-53.0) % Chloride 92 L (98-107) mmol/L Carbon Dioxide 39 H (22-30) mmol/L BUN 25 H (9-20) mg/dL Glucose 69 L (74-99) mg/dL POC Glucose (mg/dL) (75-99) mg/dL Assessment and Plan Assessment: Intermittent ventricular tachycardia, stable so far Ischemic cardiomyopathy with ejection fraction of 20-25% baseline Electrolyte imbalance with relative hypokalemia and relative hypomagnesemia 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 without exacerbation Chronic kidney disease Coronary artery disease status post CABG Sleep disorder breathing and sleep apnea Dyslipidemia Plan: Monitor and observe and advance diet as tolerated Rate and rhythm remains stabilized with magnesium and potassium protocol with daily checks, lidocaine drip is off now Continue to support with supplemental oxygen and bronchodilator along with maintenance dose of prednisone Titrated oxygen down as tolerated Monitor clinical course closely further recommendations pending Time with Patient: Greater than 30
--- NOTE | 2020-01-22 17:03 | P.PN ---
Subjective Progress Note Date: 01/22/20 Principal diagnosis: Intermittent ventricular tachycardia Ischemic cardiomyopathy with ejection fraction of 2024% baseline Electrolyte imbalance with relative hypokalemia and relative hypomagnesemia 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 without exacerbation Chronic kidney disease Coronary artery disease status post CABG Sleep disorder breathing and sleep apnea Dyslipidemia 01/22/2020, patient seen and evaluated examined during the rounds labs reviewed medications reviewed awake and alert, oxygen this tapered down to 7 L, no cough congestion is present, denies any chest pain, no more episodes of V. tach or V. fib is noted, patient is being arranged for transfer to [facility] now later on today 01/21/2020, patient seen eval examined during rounds labs reviewed medications reviewed care plan discussed with the patient, hemodynamically stable, no more episodes of V. tach or V. fib has been noted, denies any chest pain ongoing shortness of breaths present oxygen is slowly being tapered down labs reviewed, chest x-ray reviewed and atelectasis at the bases present is small effusion cannot be excluded 01/20/2020, patient seen eval examined during the rounds labs reviewed medications reviewed patient remains on 8 L oxygen no more V. tach or rapid ventricular response has been noted patient remains intermittently in A. fib irregular with controlled ventricular response and denies any chest pain, mag and phosphorus and potassium being repleted, hemodynamic status stable, lidocaine is off, patient has been on oral Mexitil and amiodarone tolerating well, can be moved out of the ICU 01/19/2020, patient seen eval examined during the rounds labs reviewed medications reviewed care plan discussed with the staff at length, patient has been on 10 L high flow oxygen oxygen saturation ranging from 95-96% with decrease oxygen to 8 L, patient remains on lidocaine drip, the patient has been started on oral amiodarone now along with Mexitil, minor dry and he is being given as well, hemodynamic status stable, we'll continue to monitor potassium and magnesium and replace accordingly once off of lidocaine drip patient can be moved out of the ICU to [facility] 01/18/2020, patient seen eval examined during the rounds labs reviewed medicati ons reviewed care plan discussed, patient is more awake on 14 L high flow oxygen, off of nonrebreather mask, breathing comfortably, denies any chest pain, no more V. tach has been noted overnight, patient remains nothing by mouth we'll start clear liquid diet and oral medications, and monitor patient closely in ICU, patient remains on potassium replacement and magnesium replacement protocol along with infusion of lidocaine and amiodarone drip hemodynamic status stable labs reviewed medications reviewed care plan discussed with staff at length This patient is well-known to be has a history of multiple medical problems and issues came into hospital with AICD firing multiple times, patient has been found to have low magnesium and potassium has been on multiple antiarrhythmic agents last V. tach/V. fib happened at around 8:15 since then he is stable he remains awake however his oxygen from baseline of 6 went up to a nonrebreather mask with 100% oxygen His past medical history of coronary artery disease and status post coronary artery bypass grafting and previous angioplasty and stenting so that, heart catheterization in September 2018 revealed severe stenosis of the LAD with occluded first obtuse marginal branch, chronically occluded mid right coronary artery, mild to moderate disease of the proximal left circumflex, patent JACKSON to LAD, patent saphenous vein graft to the diagonal branch and to the right PDA, severely impaired left ventricular systolic function, ischemic cardiomyopathy EF of 20-25% status post AICD, chronic systolic heart failure as well as chronic obstructive pulmonary disease, chronic hypoxic respiratory failure on home O2, hypertension, hyperlipidemia, chronic pain syndrome on methadone, tobacco use and dependencequit September 2018, obstructive sleep apnea on CPAP. Patient was last hospitalized in December of this year for acute exacerbation of COPD and hemopt ysis secondary to lung mass. Patient was discharged to [facility] and is now long- term resident. Patient states he has not followed up with Dr. Gong since his last hospitalization. Patient states that he was getting up to go to the bathroom and his AICD went off the patient does not recall the whole incident. He ended up falling to the floor and has bruising to the facial areas. He subsequently has had 13 defibrillations by AICD before he arrived here with multiple following while in the emergency center been subsequently in ICU patient eventually required amiodarone drip lidocaine drip and a protocol established to keep magnesium up an more than 2 and potassium up an more than 4.5. Objective - Vital Signs Vital signs: Vital Signs Temp 97.2 F L 01/22/20 04:00 Pulse 60 01/22/20 08:00 Resp 18 01/22/20 08:00 BP 140/91 01/22/20 08:00 Pulse Ox 95 01/22/20 04:00 Intake & Output 01/21/20 01/22/20 01/22/20 18:59 06:59 18:59 Intake Total 600 Output Total 400 1625 Balance 200 -1625 Weight 94 kg Intake: Oral 600 Output: Urine 400 1625 Other: Voiding Method Indwelling Catheter Indwelling Catheter Indwelling Catheter - Exam Vitals: Afebrile temperature 90.8, blood pressure is 110 to 1:30/60-70, heart rate variable now A. fib with controlled rate 60-70, respiratory rate 20-24 - Constitutional General appearance: average body habitus, cooperative, disheveled - EENT Eyes: EOMI Ears: bilateral: normal - Neck Neck: normal ROM Carotids: bilateral: upstroke normal Thyroid: bilateral: normal size - Respiratory Respiratory: bilateral: diminished - Cardiovascular Rhythm: regular Heart sounds: normal: S1, S2 - Neurologic Neurologic: CNII-XII intact - Musculoskeletal Musculoskeletal: generalized weakness, strength equal bilaterally - Psychiatric Psychiatric: A&O x's 3, appropriate affect - Labs CBC & Chem 7: 01/22/20 05:14 01/22/20 05:14 Labs: Abnormal Lab Results - Last 24 Hours (Table) 01/21/20 01/22/20 01/22/20 Range/Units 20:04 05:14 05:14 RBC 2.87 L (4.30-5.90) m/uL Hgb 8.8 L (13.0-17.5) gm/dL Hct 27.5 L (39.0-53.0) % Chloride 92 L (98-107) mmol/L Carbon Dioxide 39 H (22-30) mmol/L BUN 25 H (9-20) mg/dL Glucose 69 L (74-99) mg/dL POC Glucose (mg/dL) 163 H (75-99) mg/dL Assessment and Plan Assessment: Intermittent ventricular tachycardia, stable so far Ischemic cardiomyopathy with ejection fraction of 20-25% baseline Electrolyte imbalance with relative hypokalemia and relative hypomagnesemia 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 without exacerbation Chronic kidney disease Coronary artery disease status post CABG Sleep disorder breathing and sleep apnea Dyslipidemia Plan: Monitor and observe and advance diet as tolerated Rate and rhythm remains stabilized with magnesium and potassium protocol with daily checks, lidocaine drip is off now Continue to support with supplemental oxygen and bronchodilator along with pramod ntenance dose of prednisone Titrated oxygen down as tolerated Monitor clinical course closely further recommendations pending Time with Patient: Greater than 30
== END 2020-01-22 12:22 | DRG 309 ==
LOC: EC 08:05 → 2SICU 09:29
PROVIDERS: ADMIT Internal Medicine Geriatric Medicine; ATTEND Internal Medicine Geriatric Medicine
PROC: 4B02XTZ Measurement of Cardiac Defibrillator, External Approach (ICD-10-PCS; principal; 2020-01-19)
DX: I49.01 Ventricular fibrillation (principal); I13.0 Hypertensive heart and chronic kidney disease with heart failure and stage 1 through stage 4 chronic kidney disease, or unspecified chronic kidney disease; I50.22 Chronic systolic (congestive) heart failure; J96.11 Chronic respiratory failure with hypoxia; N17.9 Acute kidney failure, unspecified; I47.2 Ventricular tachycardia; I25.5 Ischemic cardiomyopathy; Z66 Do not resuscitate; I25.10 Atherosclerotic heart disease of native coronary artery without angina pectoris; J44.9 Chronic obstructive pulmonary disease, unspecified; N18.3 Chronic kidney disease, stage 3 (moderate); E78.5 Hyperlipidemia, unspecified; M54.5 Low back pain; F32.9 Major depressive disorder, single episode, unspecified; G47.33 Obstructive sleep apnea (adult) (pediatric); J45.40 Moderate persistent asthma, uncomplicated; G89.4 Chronic pain syndrome; E87.6 Hypokalemia; E83.42 Hypomagnesemia; D63.1 Anemia in chronic kidney disease; F41.9 Anxiety disorder, unspecified; S00.83XA Contusion of other part of head, initial encounter; W18.30XA Fall on same level, unspecified, initial encounter; Z45.02 Encounter for adjustment and management of automatic implantable cardiac defibrillator; Z95.1 Presence of aortocoronary bypass graft; Z79.899 Other long term (current) drug therapy; Z79.82 Long term (current) use of aspirin; I25.2 Old myocardial infarction; Z99.81 Dependence on supplemental oxygen; Z80.0 Family history of malignant neoplasm of digestive organs; Z80.6 Family history of leukemia; Z98.890 Other specified postprocedural states; Z95.5 Presence of coronary angioplasty implant and graft; Z99.89 Dependence on other enabling machines and devices; Z87.891 Personal history of nicotine dependence; Z86.19 Personal history of other infectious and parasitic diseases; Z87.898 Personal history of other specified conditions; Z86.14 Personal history of Methicillin resistant Staphylococcus aureus infection; Z79.52 Long term (current) use of systemic steroids; Z79.891 Long term (current) use of opiate analgesic
CPT/HCPCS: 36415; 71045; 80048; 80053; 83036; 83735; 84132; 84443; 84484; 85025; 85027; 85610; 85730; 93005; 94640; 96365; 96366; 96368; 96375; 99291

== ENCOUNTER → 2020-02-05 | Outpatient (CLI) | payer OTHER ==
--- NOTE | 2020-02-05 15:23 | CT ---
EXAMINATION TYPE: CT chest wo con DATE OF EXAM: 02/05/2020 COMPARISON: 12/01/2019 HISTORY: Lung mass CT DLP: [address] of the chest was performed with lung and mediastinal window settings submitted. The la ck of contrast limits evaluation of the vascular, mediastinal and parenchymal structures including th e upper abdomen. LUNGS: Moderate emphysematous changes noted bilaterally. Spiculated nodular density within the right middle lobe is less conspicuous on today's study and may reflect an area of improving infiltrate or a telectasis. Density does persist and follow-up until resolution is advised. Linear parenchymal scarri ng at the right and left lung base. Chronic elevation right hemidiaphragm. MEDIASTINUM/PATRICE: Thoracic aorta is of normal caliber with limited evaluation given lack of contrast . The heart is enlarged. No evidence for mediastinal mass. No lymph nodes greater than 1cm. UPPER ABDOMEN: No significant abnormality is seen. OTHER: No significant other abnormality. IMPRESSION: 1. Spiculated nodular density within the right middle lobe is less conspicuous on today's study and may reflect an area of improving infiltrate or atelectasis. Density does persist and follow-up until resolution is advised.
== END | disposition home or self-care (01) ==
LOC: RADCTMAIN 12:35
PROVIDERS: ATTEND Family Medicine
DX: J98.4 Other disorders of lung (principal)
CPT/HCPCS: 71250

== ENCOUNTER 2020-04-01 12:16 | Day surgery (SDC) | payer OTHER ==
[2020-03-30 11:25] VITALS: BMI 30.9
[~2020-04-01 12:16] MED LIST: LACTATED RINGERS 1,000 ML IV SCH; SODIUM CHLORIDE 0.9% 1,000 ML IV SCH; ceFAZolin 1,000 MG in SODIUM CHLORIDE 0.9% IRRIGATIO 250 ML IRRIGATION ONE
[2020-04-01] MEDS ORDERED: SODIUM CHLORIDE 0.9% 1,000 ML IV ONE (12:43)
[2020-04-01] MEDS ORDERED: HYDROCORTISONE SUCCINATE 100 MG/2 ML VIAL IV STA (12:58)
[2020-04-01] MEDS ORDERED: MIDAZOLAM 2 MG/2 ML VIAL ONE ×2 (14:17)
[2020-04-01] MEDS ORDERED: fentaNYL (PF) 50 MCG/ML 2 ML AMP ONE (14:17)
[2020-04-01] MEDS ORDERED: LIDOCAINE 1% INJ 10MG/ML (20 ML MDV) ONE (14:37)
[2020-04-01] MEDS ORDERED: LIDOCAINE 1% INJ 10MG/ML (20 ML MDV) SQ ONE (14:48)
[2020-04-01] MEDS ORDERED: ACETAMINOPHEN TAB 325 MG TAB PO PRN ×2 (15:34→18:11)
[2020-04-01] MEDS ORDERED: ALBUTEROL NEBULIZED 2.5 MG/3 ML INHALATION ONE (16:09)
--- NOTE | 2020-04-01 16:23 | XR ---
EXAMINATION TYPE: XR chest 1V portable DATE OF EXAM: 04/01/2020 Comparison: 01/22/2020 Clinical History: 59-year-old male Lead placement check Findings: with right atrial and right ventricular leads. Median sternotomy wires. Very low lung volumes. Asymme tric elevation right hemidiaphragm. Median sternotomy wires. Some strandy atelectasis or scarring are in the periphery of the left midlung. Impression: Hypoventilatory changes in the lungs. Unchanged asymmetric elevation right hemidiaphragm. Consider th e possibility of hemidiaphragmatic paralysis. 2-lead left anterior chest wall ICD generator.
--- NOTE | 2020-04-01 16:47 | CE ---
CARDIAC ELECTROPHYSIOLOGY REPORT Beto Goodman is a 59-year-old male patient whose generator is at [facility]. In the month of January he had numerous ICD shocks for ventricular tachycardia, ventricular fibrillation, almost 69 shocks. This resulted in significant battery depletion and he needs a battery replacement for his biventricular ICD. Patient brought to the EP lab in a fasting state. Written informed consent was obtained prior to the procedure. The left shoulder area was prepped and draped as per protocol; 1% lidocaine was used for local anesthesia. An incision made directly over the previous surgical site and carried down to the level of the generator. The generator was explanted, a partial capsulectomy was performed. The new generator was implanted. The leads were interrogated. The new generator was a [employer] CRTD [employer]ia MRI DF4 generator. The right atrial RA threshold was 1 V at 0.4 milliseconds, pacing impedance 513 ohms and P waves 3.4 mV. The RV pacing threshold 1.25 V at 0.8 milliseconds, pacing impedance of 399 ohms. R- waves 9.8 mV. High-voltage impedance 80 ohms. . The HIS bundle lead were interrogated and selective capture was noted from this 2.5 V at 1 millisecond with loss of capture. There was loss of HIS bundle capture 0.75 V at 1 millisecond. However, there was no normalized; however, the QRS did not normalize and he maintained the left bundle branch block pattern with a wide QRS. The device was then programmed to DDDR with MVP to avoid RV pacing. VT and VF zones were programmed at appropriate antitachycardia pacing. Cardioversion defibrillation was programmed. RESULTS: Successful biventricular ICD generator change. DFT was not performed. MMODL / IJN: [id number] /
[2020-04-01] MEDS ORDERED: ACETAMINOPHEN IV (For NPO) 1,000 MG in EMPTY BAG 1 BAG IVPB ONE (18:00)
[2020-04-01] MEDS ORDERED: METHADONE 5 MG TAB PO SCH (18:00)
[2020-04-01] MEDS ORDERED: METHADONE 10 MG TAB PO SCH (18:00)
[2020-04-01] MEDS: busPIRone HCl 5 MG TAB PO SCH ×2 (18:05→21:27)
[2020-04-01] MEDS: MIDODRINE 5 MG TAB PO SCH (18:05)
[2020-04-01] MEDS: FUROSEMIDE 40 MG TAB PO SCH (18:05)
[2020-04-01] MEDS: MEXILETINE 150 MG CAP PO SCH ×2 (18:07→23:41)
[2020-04-01] MEDS ORDERED: NITROGLYCERIN SL TABS 0.4 MG TAB SUBLINGUAL PRN (18:11)
[2020-04-01] MEDS ORDERED: ALBUTEROL NEBULIZED 2.5 MG/3 ML INHALATION PRN (18:11)
[2020-04-01] MEDS: SYMBICORT 80-4.5 MCG INHALER INHALATION SCH (20:08)
[2020-04-01] MEDS ORDERED: EZETIMIBE 10 MG TAB PO SCH (21:00)
[2020-04-01] MEDS ORDERED: AMMONIUM LACTATE 12% CREAM 140 GM TUBE TOPICAL SCH (21:00)
[2020-04-01] MEDS ORDERED: ALPRAZolam 0.25 MG TAB PO SCH (21:00)
[2020-04-01] MEDS ORDERED: MELATONIN 3 MG TABLET PO SCH (21:00)
[2020-04-01] MEDS ORDERED: MONTELUKAST 10 MG TAB PO SCH (21:00)
[2020-04-01] MEDS ORDERED: ATORVASTATIN 40 MG TAB PO SCH (21:00)
[2020-04-01] MEDS ORDERED: LORATADINE 10 MG TAB PO SCH (21:00)
[2020-04-01] MEDS: ALPRAZolam 0.25 MG TAB PO SCH (21:26)
[2020-04-01] MEDS: HYDROcodone/APAP 5-325MG 1 EACH TAB PO PRN (21:26)
[2020-04-01] MEDS: AMIODARONE 200 MG TAB PO SCH (21:27)
[2020-04-01] MEDS: guaiFENesin 600 MG TABLET.ER PO SCH (21:35)
[2020-04-01] MEDS: carvediloL 12.5 MG TAB PO SCH (21:35)
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
[2020-04-02 01:40] VITALS: TEMP 97.7
[2020-04-02] MEDS: FUROSEMIDE 40 MG TAB PO SCH ×2 (04:10→13:02)
[2020-04-02] MEDS ORDERED: METHADONE 10 MG TAB PO SCH (06:00)
[2020-04-02] MEDS: IPRATROPIUM 0.5 MG/2.5 ML NEBU INHALATION SCH ×2 (08:05→10:52)
[2020-04-02] MEDS: SYMBICORT 80-4.5 MCG INHALER INHALATION SCH (08:05)
[2020-04-02] MEDS: MIDODRINE 5 MG TAB PO SCH ×2 (08:36→13:02)
[2020-04-02] MEDS: guaiFENesin 600 MG TABLET.ER PO SCH (08:36)
[2020-04-02] MEDS: busPIRone HCl 5 MG TAB PO SCH (08:36)
[2020-04-02] MEDS: carvediloL 12.5 MG TAB PO SCH (08:36)
[2020-04-02] MEDS: AMIODARONE 200 MG TAB PO SCH (08:36)
[2020-04-02] MEDS: ALPRAZolam 0.25 MG TAB PO SCH (08:36)
[2020-04-02] MEDS: MEXILETINE 150 MG CAP PO SCH (08:38)
[2020-04-02] MEDS: HYDROcodone/APAP 5-325MG 1 EACH TAB PO PRN (08:45)
[2020-04-02 08:53] VITALS: BP 120/69; RESP 16
[2020-04-02] MEDS ORDERED: ASPIRIN 81 MG PO SCH (09:00)
[2020-04-02] MEDS ORDERED: predniSONE 5 MG TAB PO SCH (09:00)
[2020-04-02] MEDS ORDERED: acetaZOLAMIDE 250 MG TAB PO SCH (09:00)
[2020-04-02] MEDS ORDERED: MULTIVITAMINS, THERA 1 EACH TAB PO SCH (09:00)
--- NOTE | 2020-04-02 10:26 | P.DS ---
Providers Attending physician: Cruz Green Primary care physician: Radha Conner Assessment: Patient is doing well. He is resting comfortably in bed minimal soakage on the dressing No hematoma Sounds are clear no rhonchi no crackles Normal heart sounds normal S1 normal S2 no S3 gallop Abdomen soft No lower extremity edema No JVD Blood pressure 120/69 mmHg, pulse rate in the 50s and 60s, afebrile 97.7F Impression Coronary artery disease status post CABG Severe ischemic cardiomyopathy status post biventricular ICD chronic kidney disease History of a lung mass. Computed tomography scan shows a spiculated nodular density in the right middle lobe which is less conspicuous as of 02/05/2020 and may reflect an area of improving infiltrate 69 ICD shocks in January Battery depletion on account of this Status post bilateral ICD generator change Selective His bundle pacing noted but without normalization of the left bundle branch block currently AAIR-DDDR mode Plan Discharge home today after completion of IV antibiotics follow-up in the device clinic Consideration for VT ablation in the future along with reduction in Cordarone especially if the spiculated nodule in the right middle lobe is not malignant Plan - Discharge Summary Discharge Rx Participant: No New Discharge Prescriptions: Continue Nitroglycerin Sl Tabs [Nitrostat] 0.4 mg SUBLINGUAL Q5M PRN #25 tab PRN Reason: Chest Pain Multivitamins, Thera [Multivitamin (formulary)] 1 tab PO DAILY@0900 Ezetimibe [Zetia] 10 mg PO HS@2100 Cetirizine HCl [Zyrtec] 10 mg PO HS@2100 Fluticasone Propion/Salmeterol [Wixela 250-50 Inhub] 1 puff INHALATION RT- BID@0900,2100 Furosemide [Lasix] 40 mg PO TID@0600,1200,1800 Acetaminophen Tab [Tylenol] 650 mg PO Q4H PRN PRN Reason: Pain Atorvastatin [Lipitor] 40 mg PO HS@2100 Hypertonic Nasal Wash 1 spray NASAL TID PRN PRN Reason: Nasal Congestion Oxymetazoline 0.05% Nasl [place] [Afrin 0.05% Nasal [place]] 1 spray EA NOSTRIL Q10H PRN PRN Reason: Nasal Congestion Midodrine HCl [ProAmatine] 10 mg PO TID@0900,1300,1800 guaiFENesin [Mucinex] 600 mg PO BID@0900,2100 Montelukast [Singulair] 10 mg PO HS@2099 lisinopriL [Zestril] 2.5 mg PO DAILY@0900 Aspirin 81 mg PO DAILY@0900 carvediloL [Coreg*] 12.5 mg PO BID@899,2100 tab Mexiletine [Mexitil] 150 mg PO Q8HR cap Methadone [Dolophine] 60 mg PO DAILY@0600 #18 tab Methadone [Dolophine] 50 mg PO DAILY@1800 #15 tab Methadone [Dolophine] 5 mg PO DAILY@1800 #3 tab ALPRAZolam [Xanax] 0.75 mg PO HS@2099 #9 tab predniSONE 15 mg PO DAILY Nicotine 7Mg/24Hr Patch [Habitrol] 1 patch TRANSDERM DAILY Amiodarone [Cordarone] 200 mg PO BID ALPRAZolam [Xanax] 0.25 mg PO BID Tiotropium [place] [Spiriva] 1 cap INHALATION DAILY Melatonin 6 mg PO HS busPIRone HCL 10 mg PO TID acetaZOLAMIDE [Diamox] 250 mg PO DAILY Ammonium Lactate Cream [Lac-Hydrin 12% Cream] 1 applic TOPICAL HS Albuterol Nebulized [Ventolin Nebulized] 2.5 mg INHALATION Q4H PRN PRN Reason: Shortness Of Breath Discharge Medication List Nitroglycerin Sl Tabs [Nitrostat] 0.4 mg SUBLINGUAL Q5M PRN #25 tab 09/24/18 [Rx] Multivitamins, Thera [Multivitamin (formulary)] 1 tab PO DAILY@89904/22/19 [History] Cetirizine HCl [Zyrtec] 10 mg PO HS@209908/30/19 [History] Ezetimibe [Zetia] 10 mg PO HS@209908/30/19 [History] Fluticasone Propion/Salmeterol [Wixela 250-50 Inhub] 1 puff INHALATION RT- BID@899,209908/30/19 [History] Furosemide [Lasix] 40 mg PO TID@0600,1200,1800 11/13/19 [History] Acetaminophen Tab [Tylenol] 650 mg PO Q4H PRN 12/01/19 [History] Atorvastatin [Lipitor] 40 mg PO HS@209912/01/19 [History] Aspirin 81 mg PO DAILY@0900 01/17/20 [History] Hypertonic Nasal Wash 1 spray NASAL TID PRN 01/17/20 [History] Midodrine HCl [ProAmatine] 10 mg PO TID@0900,1300,1800 01/17/20 [History] Montelukast [Singulair] 10 mg PO HS@209901/17/20 [History] Oxymetazoline 0.05% Nasl [place] [Afrin 0.05% Nasal [place]] 1 spray EA NOSTRIL Q10H PRN 01/17/20 [History] guaiFENesin [Mucinex] 600 mg PO BID@0900,2100 01/17/20 [History] lisinopriL [Zestril] 2.5 mg PO DAILY@0900 01/17/20 [History] ALPRAZolam [Xanax] 0.75 mg PO HS@2100 #9 tab 01/22/20 [Rx] Methadone [Dolophine] 5 mg PO DAILY@1800 #3 tab 01/22/20 [Rx] Methadone [Dolophine] 50 mg PO DAILY@1800 #15 tab 01/22/20 [Rx] Methadone [Dolophine] 60 mg PO DAILY@0600 #18 tab 01/22/20 [Rx] Mexiletine [Mexitil] 150 mg PO Q8HR cap 01/22/20 [Rx] carvediloL [Coreg*] 12.5 mg PO BID@0900,2100 tab 01/22/20 [Rx] ALPRAZolam [Xanax] 0.25 mg PO BID 03/30/20 [History] Albuterol Nebulized [Ventolin Nebulized] 2.5 mg INHALATION Q4H PRN 03/30/20 [History] Amiodarone [Cordarone] 200 mg PO BID 03/30/20 [History] Ammonium Lactate Cream [Lac-Hydrin 12% Cream] 1 applic TOPICAL HS 03/30/20 [History] Melatonin 6 mg PO HS 03/30/20 [History] Nicotine 7Mg/24Hr Patch [Habitrol] 1 patch TRANSDERM DAILY 03/30/20 [History] Tiotropium [place] [Spiriva] 1 cap INHALATION DAILY 03/30/20 [History] acetaZOLAMIDE [Diamox] 250 mg PO DAILY 03/30/20 [History] busPIRone HCL 10 mg PO TID 03/30/20 [History] predniSONE 15 mg PO DAILY 03/30/20 [History] Follow up Appointment(s)/Referral(s): Elsy Ch MD [STAFF PHYSICIAN] - 1 Week Activity/Diet/Wound Care/Special Instructions: Keep wound dry for 7 days Follow-up the device clinic 7 days Discharge Disposition: HOME SELF-CARE
[2020-04-02 10:56] VITALS: PULSE 84
--- NOTE | 2020-04-02 11:06 | P.CNPUL ---
History of Present Illness Consult date: 04/02/20 Reason for consult: dyspnea, COPD, hypoxemia Chief complaint: Shortness of breath admitted for ICD generator change History of present illness: 59-year-old male with history of end-stage lung disease secondary severe COPD emphysema also has history of obstructive sleep apnea as well as chronic asthmatic bronchitis and severe persistent asthma, patient has severe degree of ischemic cardiomyopathy and recurrent A. fib with RVR and episodes of ventricular tachycardia, patient has ICD admitted electively for ICD generator change, on oxygen saturation is 94%, hemodynamic stable, remains on 4 L oxygen, chest x-ray stable with the hypoventilation changes, chronic him he diaphragm elevation noted on the right side Review of Systems All systems: negative Past Medical History Past Medical History: Asthma, Coronary Artery Disease (CAD), Heart Failure, COPD, Hyperlipidemia, Hypertension, Myocardial Infarction ([place]), Renal Disease, Respiratory Disorder, Sleep Apnea/CPAP/BIPAP Additional Past Medical History / Comment(s): See Dr Green H&P, skin tear left arm, home oxygen, wears bipap, 12[place] [facility] [place] back pain/bulging discs-uses methadone for pain, past medical record documented CKD stage III but pt unaware. Last Myocardial Infarction Date:: 2013 History of Any Multi-Drug Resistant Organisms: MRSA Date of last positivie culture/infection: 02/08/09 MDRO Source:: Leg/face Past Surgical History: AICD, Coronary Bypass/CABG, Heart Catheterization, Heart Catheterization With Stent Additional Past Surgical History / Comment(s): 2019 AICD, CABG 2018- 3 vessel, PCI with stent in 2013, incicional hernia repair. 04-01-20 generator change. Past Anesthesia/Blood Transfusion Reactions: No Reported Reaction Additional Past Anesthesia/Blood Transfusion Reaction / Comment(s): Difficulty in breathing Date of Last Stent Placement:: 2013 Type of Cardiac Device: AICD Device Placement Date:: 2018 Past Psychological History: Depression Additional Psychological History / Comment(s): . Smoking Status: Never smoker Past Alcohol Use History: None Reported Additional Past Alcohol Use History / Comment(s): The patient was a smoker on and off for 40 years and quit in September 2018. Past Drug Use History: None Reported - Past Family History Father Family Medical History: Cancer Additional Family Medical History / Comment(s): Pancreatic CA. Father is . Mother Family Medical History: Cancer Additional Family Medical History / Comment(s): Leukemia. Mother is . Medications and Allergies Home Medications Medication Instructions Recorded Confirmed Type Nitroglycerin Sl Tabs [Nitrostat] 0.4 mg SUBLINGUAL Q5M PRN #25 tab 09/24/18 03/30/20 Rx Multivitamins, Thera [Multivitamin 1 tab PO DAILY@0900 04/22/19 04/01/20 History (formulary)] Cetirizine HCl [Zyrtec] 10 mg PO HS@209908/30/19 04/01/20 History Ezetimibe [Zetia] 10 mg PO HS@209908/30/19 04/01/20 History Fluticasone Propion/Salmeterol 1 puff INHALATION RT-BID@0900,209908/30/19 04/01/20 History [Wixela 250-50 Inhub] Furosemide [Lasix] 40 mg PO TID@0600,1200,1800 11/13/19 04/01/20 History Acetaminophen Tab [Tylenol] 650 mg PO Q4H PRN 12/01/19 04/01/20 History Atorvastatin [Lipitor] 40 mg PO HS@209912/01/19 04/01/20 History Aspirin 81 mg PO DAILY@0901/17/20 04/01/20 History Hypertonic Nasal Wash 1 spray NASAL TID PRN 01/17/20 03/30/20 History Midodrine HCl [ProAmatine] 10 mg PO TID@0900,1300,1800 01/17/20 04/01/20 History Montelukast [Singulair] 10 mg PO HS@209901/17/20 04/01/20 History Oxymetazoline 0.05% Nasl [place] 1 spray EA NOSTRIL Q10H PRN 01/17/20 04/01/20 History [Afrin 0.05% Nasal [place]] guaiFENesin [Mucinex] 600 mg PO BID@0900,209901/17/20 04/01/20 History lisinopriL [Zestril] 2.5 mg PO DAILY@0900 01/17/20 04/01/20 History ALPRAZolam [Xanax] 0.75 mg PO HS@2100 #9 tab 01/22/20 04/01/20 Rx Methadone [Dolophine] 5 mg PO DAILY@1800 #3 tab 01/22/20 04/01/20 Rx Methadone [Dolophine] 50 mg PO DAILY@1800 #15 tab 01/22/20 04/01/20 Rx Methadone [Dolophine] 60 mg PO DAILY@0600 #18 tab 01/22/20 04/01/20 Rx Mexiletine [Mexitil] 150 mg PO Q8HR cap 01/22/20 04/01/20 Rx carvediloL [Coreg*] 12.5 mg PO BID@0900,2100 tab 01/22/20 04/01/20 Rx ALPRAZolam [Xanax] 0.25 mg PO BID 03/30/20 04/01/20 History Albuterol Nebulized [Ventolin 2.5 mg INHALATION Q4H PRN 03/30/20 04/01/20 History Nebulized] Amiodarone [Cordarone] 200 mg PO BID 03/30/20 04/01/20 History Ammonium Lactate Cream [Lac-Hydrin 1 applic TOPICAL HS 03/30/20 04/01/20 History 12% Cream] Melatonin 6 mg PO HS 03/30/20 04/01/20 History Nicotine 7Mg/24Hr Patch [Habitrol] 1 patch TRANSDERM DAILY 03/30/20 04/01/20 History Tiotropium [place] [Spiriva] 1 cap INHALATION DAILY 03/30/20 04/01/20 History acetaZOLAMIDE [Diamox] 250 mg PO DAILY 03/30/20 04/01/20 History busPIRone HCL 10 mg PO TID 03/30/20 04/01/20 History predniSONE 15 mg PO DAILY 03/30/20 04/01/20 History Allergies Allergy/AdvReac Type Severity Reaction Status Date / Time No Known Allergies Allergy Verified 04/01/20 12:45 Physical Exam Vitals: Vital Signs Temp Pulse Pulse Resp BP Pulse Ox 04/02/20 10:52 84 04/02/20 08:00 54 L 16 120/69 94 L 04/02/20 04:00 60 20 04/02/20 03:19 60 20 106/62 93 L 04/02/20 00:00 97.7 F 50 L 18 126/72 94 L 04/01/20 20:00 55 L 20 04/01/20 19:19 98.0 F 55 L 20 107/46 95 04/01/20 18:18 53 L 16 99/57 94 L 04/01/20 17:19 54 L 16 103/46 93 L 04/01/20 16:49 56 L 16 124/76 94 L 04/01/20 16:30 54 L 16 98/56 92 L 04/01/20 16:19 56 L 16 118/66 95 04/01/20 16:15 56 L 16 124/59 92 L 04/01/20 16:00 53 L 16 121/69 94 L 04/01/20 15:50 97.1 F L 54 L 16 124/86 95 04/01/20 13:02 98.9 F 55 L 16 121/74 95 Intake and Output 04/01/20 04/02/20 04/02/20 22:59 06:59 14:59 Intake Total 240 Output Total 350 600 Balance -110 -600 Intake: IV 0 Oral 240 Output: Urine 350 600 Other: # Voids 1 1 Weight 94.6 kg 93.5 kg - Constitutional General appearance: average body habitus, cooperative, disheveled - EENT Eyes: PERRLA Ears: bilateral: normal - Neck Neck: normal ROM Carotids: bilateral: upstroke normal Thyroid: bilateral: normal size - Respiratory Respiratory: bilateral: diminished - Cardiovascular Rhythm: irregularly irregular Heart sounds: normal: S1, S2 - Gastrointestinal General gastrointestinal: normal bowel sounds - Neurologic Neurologic: CNII-XII intact - Musculoskeletal Musculoskeletal: gait normal, generalized weakness, strength equal bilaterally - Psychiatric Psychiatric: A&O x's 3, appropriate affect, intact judgment & insight Results - Diagnostic Findings Chest x-ray: report reviewed, image reviewed Assessment and Plan Assessment: Chronic hypoxic respiratory failure End-stage COPD oxygen-dependent prednisone dependent not in next this admission Chronic severe persistent asthma of severe category clinically stable Chronic systolic heart failure History of ventricular tachycardia status post ICD Ammann and IC D generator change Obesity hypoventilation syndrome Noncompliance Plan: Continue supplemental oxygen Continue breathing treatment Continue bronchodilator Deep breathing exercise incentive spirometry Keep patient on maintenance prednisone of 15 mg daily Stable from pulmonary standpoint for discharge Time with Patient: Greater than 30
--- NOTE | 2020-04-02 14:23 | P.PN ---
Subjective Progress Note Date: 04/02/20 HISTORY OF PRESENT ILLNESS 59-year-old male one of Dr. garza patient who has been seen Dr. Ubaldo Schmidt in the [place] for the last several month and become a permanent at a place. Patient was hospitalized last time in January for recurrent ventricular tachycardia was striae on many medications including lidocaine and amiodarone Rythmol of beta taylor with no success. Patient was placed on amiodarone drip finally symptoms start getting away. Patient ICD shock him that event close to 64 time which created very low battery for his ICD. Otherwise patient respiratory status along with a heart failure is much better control patient has been managed [facility] surrounded by nursing and care his medication of the specimen time his diet has been a lot better patient was hemodynamically stable. 04/02: Patient has had no postprocedure complications. Arm sling is in place he has been afebrile, heart rate 84, blood pressure 120/69, pulse ox 94% on [address] Green his inquired about spiculated mass found on CAT scan which has been known for quite some time. He states that he patient is medically stable for bronchoscopy and biopsy at this point. Dr. Gong not available immediately for consultation so patient will be returned to [facility]. Dr. Conner updated of need for follow-up with Dr. Gong for further outpatient testing. Patient is discharged in stable condition. REVIEW OF SYSTEMS CONSTITUTIONAL: Well-developed mild respiratory distress, or beat obesity.. EYES: No icterus sclerae, no conjunctivitis. EARS, NOSE, MOUTH, THROAT, and FACE: No sore throat, lymphadenopathy, carotid bruits or deformity. RESPIRATORY: Positive shortness of breath cough wheezes. CARDIOVASCULAR: Positive palpitation with recurrent chest pain positive PND orthopnea and heart failure symptoms. GASTROINTESTINAL: No Abd pain, Nausea or vomiting, no Diarrhea or constipation, No GI Bleed, no distention or masses. GENITOURINARY: Negative for Hematuria or UTI, no kidney stones. INTEGUMENT/BREAST: Negative for any muscular injury with mild osteoarthritis.. HEMATOLOGIC/LYMPHATIC: Negative for bleed or purpura. Positive anemia. MUSCULOSKELTAL: Negative for Myalgia or arthralgia. Generalized muscle and joint pain. NEURLOGICAL: No LOC, Sz or syncope, blurred vision dizziness or abnormality.. BEHAVIORAL/PSYCH: Negative. ENDOCRINE: Negative. PHYSICAL EXAMINATION General Appearance: Alert, cooperative, no distress, sitting up in bed and appears to be in no acute distress. Neck HEENT: Supple, no lymphadenopathy, no thyroid enlargement, no carotid bruits. Lungs: Decreased breath some bilateral fine rhonchi no crackles positive mild expiratory wheezes. Chest Wall: Decrease motion with inspiration, the left side incision from his generator change looks good with no hematoma or bleeding still slightly bit sore and sensitive to touch.. Heart: Irregular rate since to positive sleep positive PVCs with abnormality and quite JVD Back: Symmetric, no curvature, ROM normal, no CVA tenderness. Abdomen: Soft, non-tender, bowel sounds active all four quadrants, no masses, no organomegaly. Extremities: 1+ edema Extremities normal, atraumatic, no cyanosis or edema. Pulses: 2+ and symmetric. Skin: Skin color, texture, tugor normal, no rashes or lesions. Neurologic: Alert oriented x3 cranial nerves II through XII intact, no motor deficit, no abnormal balance or gait. ASSESSMENT AND PLAN 1 post ICD generator change. No postprocedure complication. Continue arm sling. 2 severe cardiomyopathy with chronic systolic heart failure: Continue current medication patient remain on furosemide 40 mg 3 times a day, Singulair 10 mg a day, Coreg and lisinopril 2.5 mg daily. Stable and doing well. 3 advanced COPD: Was significant flareup repeatedly patient remain on mix inhaler Wixela, along with DuoNeb was a nicotine supplement for long time which should be started this point. 4 CAD: No recurrent chest pain or angina currently still on longer acting nitro along with beta taylor and eliana. 5 hyperlipidemia: Remain on Lipitor 40 mg a day. 6 chronic pain management: Remain on methadone between 50 and 60 mg daily. 7 hypotension: Still on midodrine 10 mg 3 times a day to correct her symptoms and feels secure when she ambulate. 8 chronic nicotine dependency: We'll take him off nicotine patch currently. 9 chronic edema: Continue furosemide 40 mg 3 times a day watch for any fluid retention. 10 obstructive sleep apnea: Has been using CPAP regularly. 11 spiculated mass on CAT scan of the chest. Follow up outpatient with Dr. Gong. CODE STATUS: Full code. DISCHARGE PLAN Return to [facility] in the care of Dr. Conner. Impression and plan of care have been directed as dictated by the signing physician. Isabelle Andersen nurse practitioner acting as scribe for signing physician. Objective - Vital Signs Vital signs: Vital Signs Temp 97.7 F 04/02/20 00:00 Pulse 54 L 04/02/20 08:00 Resp 16 04/02/20 08:00 BP 120/69 04/02/20 08:00 Pulse Ox 94 L 04/02/20 08:00 Intake & Output 04/01/20 04/02/20 04/02/20 18:59 06:59 18:59 Intake Total 250 240 Output Total 350 600 Balance -100 -360 Weight 94.6 kg 93.5 kg Intake: IV 250 Oral 240 Output: Urine 350 600 Other: # Voids 1 1
== END 2020-04-02 13:27 | disposition home or self-care (01) ==
LOC: CATHEP 12:16 → 3SCARD 15:23 → CATHEP 04-02 13:27
PROVIDERS: ATTEND Internal Medicine Clinical Cardiac Electrophysiology
DX: Z45.02 Encounter for adjustment and management of automatic implantable cardiac defibrillator (principal); I25.10 Atherosclerotic heart disease of native coronary artery without angina pectoris; I25.2 Old myocardial infarction; J44.9 Chronic obstructive pulmonary disease, unspecified; I13.0 Hypertensive heart and chronic kidney disease with heart failure and stage 1 through stage 4 chronic kidney disease, or unspecified chronic kidney disease; I50.22 Chronic systolic (congestive) heart failure; N18.30 Chronic kidney disease, stage 3 unspecified; Z79.82 Long term (current) use of aspirin; Z79.52 Long term (current) use of systemic steroids; Z79.02 Long term (current) use of antithrombotics/antiplatelets; Z79.51 Long term (current) use of inhaled steroids; Z79.899 Other long term (current) drug therapy; Z99.89 Dependence on other enabling machines and devices; Z86.14 Personal history of Methicillin resistant Staphylococcus aureus infection; Z95.1 Presence of aortocoronary bypass graft; Z98.890 Other specified postprocedural states; Z95.5 Presence of coronary angioplasty implant and graft; F32.9 Major depressive disorder, single episode, unspecified; E78.5 Hyperlipidemia, unspecified; Z87.891 Personal history of nicotine dependence; Z80.6 Family history of leukemia; Z80.0 Family history of malignant neoplasm of digestive organs; J96.11 Chronic respiratory failure with hypoxia; J45.50 Severe persistent asthma, uncomplicated; E66.2 Morbid (severe) obesity with alveolar hypoventilation; I25.5 Ischemic cardiomyopathy; I48.91 Unspecified atrial fibrillation; I47.2 Ventricular tachycardia; Z91.19 Patient's noncompliance with other medical treatment and regimen; Z99.81 Dependence on supplemental oxygen; Z68.31 Body mass index [BMI] 31.0-31.9, adult
CPT/HCPCS: 94640 ×2; 33229; 71045; C1882; J2250; J1720; J0690 ×3; J2001; J3010; S0109; J0131; J7512